=== PATIENT | female | born 1960 | race Caucasian/White ===

== ENCOUNTER → 2018-01-24 06:39 | Outpatient (CLI) | payer OTHER, SELFPAY ==
[2018-01-24 09:09] LABS: PTHIN 93.6 pg/mL (18.4-80.1)
== END ==
PROVIDERS: Family Provider Nurse Practitioner; PCP Nurse Practitioner; Visit Provider Nurse Practitioner
DX: E83.39 Other disorders of phosphorus metabolism (principal)
CPT/HCPCS: 36415; 82306; 83970

== ENCOUNTER → 2018-04-12 10:42 | Outpatient (CLI) | payer OTHER, SELFPAY ==
[2018-04-12 11:44] LABS: Phosphorus 3.4 mg/dL (2.5-4.9)
[2018-04-12 11:54] LABS: Vitamin D,25 Hydroxy 24.8 ng/mL (29.95-100.01)
[2018-04-12 11:55] LABS: PTHIN 101.7 pg/mL (18.4-80.1)
== END ==
PROVIDERS: Family Provider Nurse Practitioner; PCP Nurse Practitioner; Referring Provider Nurse Practitioner; Visit Provider Nurse Practitioner
DX: E34.9 Endocrine disorder, unspecified (principal)
CPT/HCPCS: 36415; 82306; 83970; 84100

== ENCOUNTER → 2018-04-29 09:40 | Outpatient (CLI) | payer OTHER, SELFPAY ==
--- NOTE | 2018-04-29 09:47 | NM_ITS ---
CLINICAL: 57-year-old female with history of elevation of the serum parathyroid hormone level. 99m Tc SESTAMIBI DUAL PHASE PARATHYROID SCINTIGRAPHY COMPARISON: None available FINDINGS: Following the intravenous administration of 26.3 mCi of 99m Tc sestamibi, image acquisitions of the anterior neck at approximately 20 minutes and 2.0 hours post radiopharmaceutical provision reveal: 1. Immediate static blood pool acquisitions demonstrate uniform distribution of the radiopharmaceutical throughout both lobes of a U-shaped thyroid gland. 2. Delayed images depict symmetric near complete washout of the radiotracer from the previously defined right-left thyroid colloid. No focal areas of persistent radiopharmaceutical concentration are identified. NM/Parathyroid Scan IMPRESSION: 1. NEGATIVE 99m Tc SESTAMIBI PARATHYROID IMAGING DUAL PHASE EXAMINATION. 2. There is no definitive typical scintigraphic evidence of parathyroid adenoma on the current evaluation. Electronically Signed: Tobias Nunez DO at 8:07 EDT Tel , Service support ,
== END ==
PROVIDERS: Family Provider Nurse Practitioner; PCP Nurse Practitioner; Referring Provider Nurse Practitioner; Visit Provider Nurse Practitioner
DX: E34.9 Endocrine disorder, unspecified (principal)
CPT/HCPCS: 78070; A9500

== ENCOUNTER → 2018-07-01 08:26 | Outpatient (CLI) | payer OTHER, SELFPAY ==
[2018-07-01 10:41] LABS: PTHIN 85.5 pg/mL (18.4-80.1)
[2018-07-01 10:42] LABS: Vitamin D,25 Hydroxy 34.9 ng/mL (29.95-100.01)
--- OUTSIDE RECORDS SUMMARY | 2018-08-16 20:23 | XMS RPT_ITS | Continuity of Care Document ---
:1960 Author Organization [facility] Address [address] [place] [address] Phone Care Team Providers Name Role Phone Santos CANDIEGiulia E Unavailable Roderick BRICEÑO, Shubham aY Unavailable [facility] Unavailable Narendra BRICEÑO, Ranjit Guerrero Unavailable Dr. Kunal Hansen Unavailable Terri Negron Unavailable Unavailable Ervin Maxwell Unavailable Unavailable Domenica Thomas LPN Unavailable Unavailable Unavailable Unavailable Problems Name Dates Details Abnormal renal ultrasound (R93.429, 793.5) Status: Active BMI 28.0-28.9,adult (Z68.28, V85.24) Status: Active BMI 29.0-29.9,adult (Z68.29, V85.25) Status: Active BMI 30.0-30.9,adult (Z68.30, V85.30) Status: Active Cervical radiculopathy, acute (M54.12, 723.4) Status: Active Deliveries (Parity) Comments: 1. Status: Active Elevated parathyroid hormone (E34.9, 259.9) Comments: and low phosphorus, ? from low D but taking D and still elevated PTH Status: Active Encounter for gynecological examination without abnormal finding (Z01.419, V72.31) Status: Active Encounter for pre-employment examination (Z02.1, V70.5) Status: Active Encounter for routine adult medical exam with abnormal findings (Z00.01, V70.0) Status: Active Encounter for routine adult medical exam with abnormal findings (Z00.01, V70.0) Status: Active Encounter for routine adult medical exam with abnormal findings (Z00.01, V70.0) Status: Active Encounter for screening for malignant neoplasm of colon (Renamed from Special screening for malignant neoplasms, colon) (Z12.11, V76.51) Status: Active Encounter for screening for malignant neoplasm of colon (Renamed from Special screening for malignant neoplasms, colon) (Z12.11, V76.51) Status: Active Encounter for screening mammogram for breast cancer (Renamed from Encounter for screening mammogram for malignant neoplasm of breast) (Z12.31, V76.12) Status: Active Family history of diabetes mellitus (Z83.3, V18.0) Status: Active Hypertension, benign (I10, 401.1) Comments: chronic stable-continue present regimen Status: Active Hypokalemia (Renamed from Decreased potassium in the blood) (E87.6, 276.8) Status: Active Hypophosphatemia (E83.39, 275.3) Comments: 2.4, will check D Status: Active Migraine with aura and without status migrainosus, not intractable (G43.109, 346.00) Comments: chronic stable-continue present regimen Status: Active Muscle spasms of neck (M62.838, 728.85) Status: Active Neck pain on left side (M54.2, 723.1) Status: Active Nonsmoker (Z78.9, V49.89) Status: Active Other abnormal finding of urine (R82.99, 791.9) Status: Active Pregnancies () Comments: 1. Status: Active screening Status: Active screening Status: Active Screening for osteoporosis (Renamed from Encounter for screening for osteoporosis) (Z13.820, V82.81) Status: Active Secondary hyperparathyroidism (N25.81, 588.81) Comments: From low vit D, negative Sesitmeibi result Status: Active Tachycardia (R00.0, 785.0) Status: Active Vitamin D deficiency (E55.9, 268.9) Comments: will take D from here Status: Active Medications Name Dates Details HydroCHLOROthiazide 12.5 MG Oral Capsule 1 Capsule q0d for 0 days Quantity: 45 {Capsule} Refills: 0 Ordered:21-Jan-2018 Santos SCHREIBER, Giulia Pires CNP, Giulia Courtney Start : 21-Jan-2018 Active Losartan Potassium 25 MG Oral Tablet 1 Tablet daily for 0 days Quantity: 90 {Tablet} Refills: 1 Ordered:21-Jan-2018 Santos SCHREIBER, Giulia Pires CNP, Giulia Courtney Start : 21-Jan-2018 Active Vitamin D 2000 UNIT Oral Tablet 1 (one) Tablet Tablet daily as directed for 0 days Quantity: 30 {Tablet} Refills: 0 Ordered:15-Apr-2018 Terri Negron Start : 03-Feb-2018 Active Cyclobenzaprine HCl 5 MG Oral Tablet 1 (one) Tablet Tablet PO TID for 0 days Quantity: 60 {Tablet} Refills: 0 Ordered:21-Jan-2018 Ervin Maxwell Start : 08-Dec-2016 End : 21-Jan-2018 Inactive LOSARTAN POTASSIUM-HCTZ, 50-12.5MG (Oral Tablet) 1 (one) Tablet daily for 30 days Quantity: 30 {Tablet} Refills: 1 Ordered:30-Sep-2012 Mayuri Gamino LPN Start : 23-Jun-2012 End : 30-Sep-[address] 500 MG Oral Tablet Delayed Release 1 (one) Tablet DR Tablet DR BID for 0 days Quantity: 30 {Tablet} Refills: 0 Ordered:21-Jan-2018 Ervin Maxwell Start : 08-Dec-2016 End : 21-Jan-2018 Inactive Comments:Take with food Caltrate 600+D 600-800 MG-UNIT Oral Tablet 1 Tablet bid for 0 days Quantity: 60 {Tablet} Refills: 0 Ordered:03-Mar-2016 Domenica Thomas LPN Start : 29-Mar-2013 End : 03-Mar-2016 Discontinued TOPAMAX, 25MG (Oral Tablet) 1 (one) Tablet qhs for 1 week then take bid for 0 days Quantity: 60 {Tablet} Refills: 3 Ordered:02-Feb-2014 Elvira Valencia Start : 30-Oct-2013 End : 02-Feb-2014 Discontinued Vitamin D3 57015 UNIT Oral Capsule 2 (two) Capsule Capsule qd for 0 days Quantity: 60 {Capsule} Refills: 3 Ordered:03-Mar-2016 Domenica Thomas LPN Start : 15-Dec-2013 End : 03-Mar-2016 Discontinued Allergies and Adverse Reactions Name Dates Details No Known Drug Allergies (Allergy) Onset: 13-Apr-2012 Status: Active Past Medical History Name Dates Details Abdominal complaints (789.9) Comments: resolved Status: Inactive as of 21-Jan-2018 BMI 30.0-30.9,adult (Z68.30, V85.30) Status: Inactive as of 01-Mar-2017 BMI 30.0-30.9,adult (Z68.30, V85.30) Status: Inactive as of 21-Jan-2018 Elevated bilirubin (782.4) Status: Resolved as of 02-Feb-2014 Hypoalbuminemia (E88.09, 273.8) Status: Resolved as of 02-Feb-2014 Hypocalcemia (E83.51, 275.41) Status: Resolved as of 02-Feb-2014 MIGRAINE NEC W/ MIGRAINE W/O STAT MIGRAINOSUS (346.81) Comments: has on and off Status: Inactive as of 21-Jan-2018 Parathyroid abnormality (E21.5, 252.9) Status: Resolved as of 02-Feb-2014 screening Status: Inactive as of 02-Feb-2014 screening Status: Inactive as of 02-Feb-2014 UTI symptoms (R39.9, 788.99) Comments: abnormal on employee physical here normal Status: Inactive as of 21-Jan-2018 Procedures Procedure Dates Details Delivery Completed Date Value Details 29-Apr-2018 Parathyroid Scan Result: Comments: See Note; NOTES: [facility] Imaging Services [address] [place] [address] Parathyroid Scan MR#: [id number] Acct: [id number] Name: CHALO MAHMOODJose Jimenez Rep #: [id number] OB: 1960 F 57 From: Tobias Nunez DO PCP: Giulia Graham NP Status: REG CLI Study: Parathyroid Scan Date of Exam: 04/29/18 Exam# [id number] Ordering Dr: Giulia Graham TIME CLERK-C CLINICAL: 57-year-old female with history of elevation of the serum parathyroid hormone level. 99m Tc SESTAMIBI DUAL PHASE PARATHYROID SCINTIGRAPHY COMPARISON: None available FINDINGS: Following the intravenous administration o f 26.3 mCi of 99m Tc sestamibi, image acquisitions of the anterior neck at approximately 20 minutes and 2.0 hours post radiopharmaceutical provision reveal: 1. Immediate static blood pool acquisitions demonstrate uniform distribution of the radiopharmaceutical throughout both lobes of a U-shaped thyroid gland. 2. Delayed images depict symmetric near complete washout of the radiotracer from the previo usly defined right-left thyroid colloid. No focal areas of persistent radiopharmaceutical concentration are identified. NM/Parathyroid Scan IMPRESSION: 1. NEGATIVE 99m Tc SESTAMIBI PARATHYROID IMAGING DUAL PHASE EXAMINATION. 2. There is no definitive typical scintigraphic evidence of parathyroid adenoma on the current evaluation. Electronically Signed: Tobias Nunez DO at 8:07 EDT Tel , Service support , CC: Giulia Graham NP Coin Purse Assembler: Signed 28-Jun-2017 Operative Report Result: Comments: See Note; NOTES: [facility] Medical Records Department [address] [place] [address] Operative Report 06/28/17 0822 MR#: [id number] Acct: [id number] Name: CHALO MAHMOOD Rep #: [id number] : 1960 56 From: Shubham Paredes MD PCP: Giulia Graham NP Status: REG CLI Y Location: EN Problem List (1) Screen for colon cancer Status: Acute Report of Operation Date of Procedure: 06/28/17 Pre-Operative Diagnosis: Screening colonoscopy Post-Operative Diagnosis: Same Surgery/Procedure Performed:: Colonoscopy plant accountant: None Type of Anesthesia:: MAC Anesthesiologist: Joselito Alvarez Special Medications: 1 amp of glucagon Specimen's removed: None Estimated Blood Loss (mL): None Description of Procedure: Patient brought into the endoscopy suite placed in the left later al decubitus position. She was given graded anesthesia. Colonoscope was inserted into the rectum and directed through the sigmoid colon, descending colon, transverse colon, ascending colon, to the cecum . Operative findings: 1. Cecum: Normal appearance no mass lesions normal ileocecal valve. 2. Ascending colon: Normal appearance no mass lesions. 3. Transverse colon: Normal appearance no mass lesions . 4. Descending colon: Normal appearance no mass lesions. 5. Sigmoid colon: Normal appearance no mass lesions scattered diverticuli moderate. 6. Rectum: Normal appearance no mass lesions retroflexion did show small internal hemorrhoid. Scope was withdrawn digital rectal exam showed no masses in the anus. - Admit VTE Documentation VTE Present on Admission: No VTE Mechan Device Prophylaxis: None VTE Pharm Prophylaxis ordered?: No Reason prophylaxis not ordered:: Treatment Not Indicated Code Visit 40xxx-49xxx: 40695 Diagnostic colonoscopy 06/28/17825 <Electronically signed by Shubham carranza MD> Date Shubham Paredes MD CC: Giulia Graham NP; santos greene; Shubham Paredes MD Signed 28-Jun-2017 History and Physical Exam Result: Comments: See Note; NOTES: [facility] Medical Records Department [address] [place] [address] History and Physical 06/28/17818 MR#: [id number] Acct: [id number] Name: Ashley MAHMOOD Rep #: [id number] : 1960 56 From: Shubham Paredes MD PCP: Giulia Graham NP Status: REG CLI Y Location: EN Problem List (1) Screen for colon cancer Status: Acute History of Present Illne ss Date of Admission: 06/28/17 The patient is a 56 year old F who presents for a screening colonoscopy. 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: - - Patient has had a section Smoking Status: Never smoker - *Family History Maternal History Items: Heart Disease, Hypertension Review of Systems Constitutional: Denies: Chills, Feve r, Weight Change Eyes: Denies: Blurred vision, Pain, Redness, Vision Change HEENT: Denies: Dysphasia, Ear Pain, Eye Pain, Head Aches, Hearing Changes, Sore Throat Cardiovascular: Denies: Chest Pain, Ira st Pressure, Chest Tightness, Palpitations Respiratory: Denies: Cough, Hemoptysis, Shortness of breath at rest, Shortness of breath upon exertion, Wheezing Gastrointestinal: Denies: Abdominal Pain, Cons tipation, Diarrhea, Hematemesis, Nausea, Melena, Vomiting Genitourinary: Denies: Dysuria, Frequency, Hematuria, Urgency Musculoskeletal: Denies: Joint Pain Skin: Denies: Lesions, Rash, Wounds Neurologic al: Denies: Change in Speech, Confusion, Numbness, Tingling, Seizures Psychiatric: Denies: Anxiety, Depression Endocrine: Denies: Heat/ Cold Intolerance, Polydipsia, Polyuria Hematologic/ Lymphatic: Den ies: Adenopathy, Easy Bruising VTE Information - Inpt Only VTE Present on Admission: No VTE Mechan Device Prophylaxis: None VTE Pharm Prophylaxis ordered?: No Reason prophylaxis not ordered:: Treatment Not Indicated Patient Problems: Active and Suspected Problems Screen for colon cancer (Acute) - Physical Exam Lungs: Clear to auscultation Cardiovascular: Regular rate, Regular Rhythm, No murmurs A bdomen: Bowel Sounds Present, Soft, Non Tender, Non-Distended Vital Signs Temp Pulse Resp BP Pulse Ox 98.2 F 84 20 H 109/85 H 95 06/28/17 07:13 06/28/17 07:13 06/28/17 07:13 06/28/17 07:13 06/28/17 07: 13 Oxygen Delivery Method Room Air Weight: 177 lb 7.554 oz Body Mass Index (BMI) 29.5 Assessment/Plan Active and Suspected Problems Screen for colon cancer (Acute) Assessment is screening colo noscopy Plan is to perform a colonoscopy. 06/28/17 0822 <Electronically signed by Shubham Paredes MD> Date Shubham Reed r Signature: Date (if applicable) CC: Giulia Graham TIME CLERK; Shubham Paredes MD Signed 08-Dec-2016 Cerv Spine 4 or 5 Views Result: Comments: See Note; NOTES: [facility] Imaging Services [address] [place] [address] [place] [address] Verdana 4d Cerv Spine 4 or 5 Views MR#: [id number] Acct: [id number] Name: JENARO MAHMOOD Rep #: [id number] : 1960 F 56 From: Sarah Flor MD PCP: Giulia Graham Status: REG CLI Study: Cerv Spine 4 or 5 Views Date of Exam: 12/08/16 Exam# [id number] Ordering Dr: Vianey De La Garza Y: X-RAY - CERVICAL SPINE REASON FOR EXAM: Female, 56 years old. Left-sided neck pain denies trauma TECHNIQUE: 6 view(s) of the cervical spine were obtained. COMPARISON: None FINDINGS: There are degenerative changes of the anterior atlantoaxial articulation. There is robust degenerative change at the dens space. Normal odontoid process. Normal cervical lordosis . There is disc space narrowing and spondylosis at the level of C5-C6. Normal visualized intervertebral neuroforamina. The soft tissue structures are unremarkable. RAD/Cerv Spine 4 or 5 Views IMPRESSION: Degenerative change cervical spine as detailed above. Electronically Signed: Sarah Flor MD at 22:53 EDT Tel , Serv ice support , CC: Vianey De La Garza; Giulia Graham Coin Purse Assembler: Signed 16-Nov-2013 Brain/Head W/WO Contrast Result: Comments: See Note; NOTES: [facility] Imaging Services [address] [place] [address] CAT Scan Report MR#: [id number] Acct: [id number] Name: JENARO MAHMOOD Rep #: [id number] : 1960 F 53 From: Ashley Stover MD PCP: Jaimee Jarrett DO Status: REG CLI Study: Brain/Head W/WO Contrast Date of Exam: 11/16/13 Exam# [id number] Ordering Dr: Jaimee Jarrett DO STUDY: CT BRAIN WITH AND WITHOUT CONTRAST REASON FOR EXAM: Female, 53 years old. Frontal headaches for years. RADIATION DOSAGE (If Supplied By Facility): CTDIvol = ( 68.82 ) mGy, DLP = ( 2018.02 ) mGycm TECHNIQUE: Transaxial CT imaging of the brain was performed pre and post contrast administration. The examination was performed with intravenous administration of 100 ml of Isovue 300 contrast materi al. COMPARISON: None. FINDINGS: The lateral and third ventricles are normal in size. There is mild widening of the frontal cortical sulci. Normal white fabio er tracts of the cerebral hemispheres. Normal basal ganglia and thalami. Normal appearing brainstem. Mild volume loss is seen in the cerebellum. There is no intracranial hemorrhage or acute infarct ion. No abnormal enhancement or mass lesion is identified. No lesion identified in the calvarium. Normal visualized paranasal sinuses. IMPRESSION: No acute process identified. Mild involutional changes. Electronically Signed: Ashley Pink MD at 13:39 EDT , Service support [phone], CC: Jaimee Jarrett DO Coin Purse Assembler: Signed 13-Oct-2013 Bilat Scrn Digital & CAD Result: Comments: See Note; NOTES: [facility] Imaging Services [address] [place] [address] Breast Imaging Report MR#: [id number] Acct: [id number] Name: KATIEJENARO J Rep #: [id number] : 1960 F 53 From: Leo Guardado MD PCP: Jaimee Jarrett DO Status: REG CLI Exam# [id number] Ordering Dr: Jaimee Jarrett DO MAMMOGRAPHY - BILATERAL SCREENING REASON FOR EXAM: Fe male, 53 years old. Routine annual screening examination. PERTINENT HISTORY: Non-contributory. TECHNIQUE: Digital examination. Mediolateral oblique (MLO) and craniocaudad (CC) views of both breast s were obtained. CAD: CAD was performed on this study. COMPARISON: Comparison is made with prior outside examination dated January 29, 2005. FINDINGS: The breast composition is composed of scattered fibroglandular tissues ranging from 25% to 50% of the breast. There are no dominant masses or suspicious calcifications. No other significant abnormalities are identified. There has been no significant change since the prior study. IMPRESSION: Stable bilateral screening mammogram. Yearly follow-up recommended. (A) ___ ASSESSMENT CATEGORY: BIRADS Category 2: Benign finding(s). A letter regarding these results will be sent to the patient by the facility within 30 days. Approximate ly 10% of breast cancers are not detected by mammography. A normal mammogram should not delay biopsy of a clinically suspicious abnormality. Electronically Signed: Leo Guardado M.D. at 7:50 EDT , Service support [phone], CC: Jaimee Jarrett DO Coin Purse Assembler: Signed Social History Name Dates Details No Caffeine Use Status: Active No Drug Use Status: Active Non Drinker/No Alcohol Use Status: Active Non Smoker/No Tobacco Use Status: Active Vital Signs Date Test Result Details [id number] Temperature 98.5 f Comments: Method: Temporal Pulse 94 /min Comments: Pattern: Regular Respiration Rate 16 /min Comments: Pattern: Unlabored O2 SAT 91 % Comments: Room air BP Systolic 120 mm[Hg] Comments: Patient Position: Sitting; Cuff Location: Left Arm; Cuff Size: Standard BP Diastolic 84 mm[Hg] Comments: Patient Position: Sitting; Cuff Location: Left Arm; Cuff Size: Standard Weight 180.375 lb Height 65 in Body Mass Index Calculated 30.02 kg/m2 Body Surface Area Calculated 1.89 m2 :07 Temperature 97.2 f Pulse 82 /min Comments: Pattern: Regular Respiration Rate 16 /min Comments: Pattern: Unlabored O2 SAT 96 % Comments: Room air BP Systolic 110 mm[Hg] Comments: Patient Position: Sitting; Cuff Location: Left Arm; Cuff Size: Standard BP Diastolic 72 mm[Hg] Comments: Patient Position: Sitting; Cuff Location: Left Arm; Cuff Size: Standard Weight 175.25 lb Height 65 in Body Mass Index Calculated 29.16 kg/m2 Body Surface Area Calculated 1.87 m2 [id number] Temperature 97 f Pulse 94 /min Comments: Pattern: Regular Respiration Rate 16 /min Comments: Pattern: Unlabored O2 SAT 97 % Comments: Room air BP Systolic 118 mm[Hg] Comments: Patient Position: Sitting; Cuff Location: Left Arm; Cuff Size: Standard BP Diastolic 76 mm[Hg] Comments: Patient Position: Sitting; Cuff Location: Left Arm; Cuff Size: Standard Weight 173.0375 lb Height 65 in Body Mass Index Calculated 28.79 kg/m2 Body Surface Area Calculated 1.86 m2 :16 Temperature 97.4 f Pulse 97 /min Comments: Pattern: Regular Respiration Rate 16 /min Comments: Pattern: Unlabored O2 SAT 96 % Comments: Room air BP Systolic 118 mm[Hg] Comments: Patient Position: Sitting; Cuff Location: Left Arm; Cuff Size: Standard BP Diastolic 76 mm[Hg] Comments: Patient Position: Sitting; Cuff Location: Left Arm; Cuff Size: Standard Weight 180.375 lb Height 65 in Body Mass Index Calculated 30.02 kg/m2 Body Surface Area Calculated 1.89 m2 :46 Temperature 97.4 f Pulse 89 /min Comments: Pattern: Regular Respiration Rate 16 /min Comments: Pattern: Unlabored O2 SAT 97 % Comments: Room air BP Systolic 108 mm[Hg] Comments: Patient Position: Sitting; Cuff Location: Left Arm; Cuff Size: Standard BP Diastolic 62 mm[Hg] Comments: Patient Position: Sitting; Cuff Location: Left Arm; Cuff Size: Standard Weight 182 lb Height 65 in Body Mass Index Calculated 30.29 kg/m2 Body Surface Area Calculated 1.9 m2 :11 Temperature 97.9 f Pulse 93 /min Comments: Pattern: Regular Respiration Rate 17 /min Comments: Pattern: Unlabored O2 SAT 99 % Comments: Room air BP Systolic 116 mm[Hg] Comments: Patient Position: Sitting; Cuff Location: Left Arm; Cuff Size: Standard BP Diastolic 78 mm[Hg] Comments: Patient Position: Sitting; Cuff Location: Left Arm; Cuff Size: Standard Weight 187 lb Height 65 in Body Mass Index Calculated 31.12 kg/m2 Body Surface Area Calculated 1.92 m2 :59 Temperature 98.6 f Comments: Method: Temporal Pulse 84 /min Comments: Pattern: Regular Respiration Rate 16 /min Comments: Pattern: Unlabored BP Systolic 116 mm[Hg] Comments: Patient Position: Sitting; Cuff Location: Left Arm; Cuff Size: Standard BP Diastolic 80 mm[Hg] Comments: Patient Position: Sitting; Cuff Location: Left Arm; Cuff Size: Standard Weight 183 lb Height 65 in Body Mass Index Calculated 30.45 kg/m2 Body Surface Area Calculated 1.9 m2 :25 Temperature 97.5 f Pulse 74 /min Comments: Pattern: Regular Respiration Rate 16 /min Comments: Pattern: Unlabored BP Systolic 100 mm[Hg] Comments: Patient Position: Sitting; Cuff Location: Left Arm; Cuff Size: Standard BP Diastolic 78 mm[Hg] Comments: Patient Position: Sitting; Cuff Location: Left Arm; Cuff Size: Standard Weight 178 lb Height 65 in Body Mass Index Calculated 29.62 kg/m2 Body Surface Area Calculated 1.88 m2 :50 Temperature 96.6 f Pulse 76 /min Comments: Pattern: Regular Respiration Rate 16 /min Comments: Pattern: Unlabored BP Systolic 110 mm[Hg] Comments: Patient Position: Sitting; Cuff Location: Left Arm; Cuff Size: Large BP Diastolic 70 mm[Hg] Comments: Patient Position: Sitting; Cuff Location: Left Arm; Cuff Size: Large Weight 182 lb Height 65 in Body Mass Index Calculated 30.29 kg/m2 Body Surface Area Calculated 1.9 m2 :27 Temperature 98.1 f Pulse 96 /min Comments: Pattern: Regular Respiration Rate 16 /min Comments: Pattern: Unlabored BP Systolic 116 mm[Hg] Comments: Patient Position: Sitting; Cuff Location: Left Arm; Cuff Size: Large BP Diastolic 82 mm[Hg] Comments: Patient Position: Sitting; Cuff Location: Left Arm; Cuff Size: Large Weight 182 lb Height 65 in Body Mass Index Calculated 30.29 kg/m2 Body Surface Area Calculated 1.9 m2 :24 Temperature 96.9 f Pulse 102 /min Comments: Pattern: Regular Respiration Rate 16 /min Comments: Pattern: Unlabored BP Systolic 110 mm[Hg] Comments: Patient Position: Sitting; Cuff Location: Left Arm; Cuff Size: Large BP Diastolic 78 mm[Hg] Comments: Patient Position: Sitting; Cuff Location: Left Arm; Cuff Size: Large Weight 181 lb Height 65 in Body Mass Index Calculated 30.12 kg/m2 Body Surface Area Calculated 1.9 m2 :55 Temperature 98 f Comments: Method: Oral Pulse 72 /min Comments: Pattern: Regular Respiration Rate 16 /min O2 SAT 98 % Comments: Room air BP Systolic 126 mm[Hg] Comments: Patient Position: Sitting; Cuff Location: Left Arm; Cuff Size: Standard BP Diastolic 74 mm[Hg] Comments: Patient Position: Sitting; Cuff Location: Left Arm; Cuff Size: Standard Weight 176.5625 lb Height 65 in Body Mass Index Calculated 29.38 kg/m2 Body Surface Area Calculated 1.88 m2 :16 Temperature 98.1 f Comments: Method: Oral Pulse 92 /min Comments: Pattern: Regular Respiration Rate 16 /min O2 SAT 98 % Comments: Room air BP Systolic 112 mm[Hg] Comments: Patient Position: Sitting; Cuff Location: Left Arm; Cuff Size: Standard BP Diastolic 70 mm[Hg] Comments: Patient Position: Sitting; Cuff Location: Left Arm; Cuff Size: Standard Weight 176.5625 lb Height 65 in Body Mass Index Calculated 29.38 kg/m2 Body Surface Area Calculated 1.88 m2 :50 Temperature 98 f Comments: Method: Oral Pulse 90 /min Comments: Pattern: Regular Respiration Rate 16 /min O2 SAT 96 % Comments: Room air BP Systolic 118 mm[Hg] Comments: Patient Position: Sitting; Cuff Location: Left Arm; Cuff Size: Standard BP Diastolic 74 mm[Hg] Comments: Patient Position: Sitting; Cuff Location: Left Arm; Cuff Size: Standard Weight 187.1875 lb Height 65 in Body Mass Index Calculated 31.15 kg/m2 Body Surface Area Calculated 1.92 m2 :51 Temperature 98.3 f Comments: Method: Oral Pulse 82 /min Comments: Pattern: Regular Respiration Rate 16 /min O2 SAT 98 % Comments: Room air BP Systolic 120 mm[Hg] Comments: Patient Position: Sitting; Cuff Location: Left Arm; Cuff Size: Standard BP Diastolic 80 mm[Hg] Comments: Patient Position: Sitting; Cuff Location: Left Arm; Cuff Size: Standard Weight 182.125 lb Height 65 in Body Mass Index Calculated 30.31 kg/m2 Body Surface Area Calculated 1.9 m2 :38 Temperature 98.2 f Comments: Method: Oral Pulse 80 /min Comments: Pattern: Regular Respiration Rate 18 /min BP Systolic 108 mm[Hg] Comments: Patient Position: Sitting; Cuff Location: Left Arm; Cuff Size: Standard BP Diastolic 70 mm[Hg] Comments: Patient Position: Sitting; Cuff Location: Left Arm; Cuff Size: Standard Weight 180.1875 lb Height 65 in Body Mass Index Calculated 29.98 kg/m2 Body Surface Area Calculated 1.89 m2 :38 Temperature 98.2 f Comments: Method: Oral Pulse 76 /min Comments: Pattern: Regular Respiration Rate 16 /min BP Systolic 124 mm[Hg] Comments: Patient Position: Sitting; Cuff Location: Left Arm; Cuff Size: Standard BP Diastolic 80 mm[Hg] Comments: Patient Position: Sitting; Cuff Location: Left Arm; Cuff Size: Standard Weight 180.1875 lb Height 65 in Body Mass Index Calculated 29.98 kg/m2 Body Surface Area Calculated 1.89 m2 :10 Temperature 99 f Comments: Method: Oral Pulse 82 /min Comments: Pattern: Regular Respiration Rate 16 /min Comments: Pattern: Unlabored O2 SAT 98 % Comments: Room air BP Systolic 102 mm[Hg] Comments: Patient Position: Sitting; Cuff Location: Left Arm; Cuff Size: Standard BP Diastolic 68 mm[Hg] Comments: Patient Position: Sitting; Cuff Location: Left Arm; Cuff Size: Standard Weight 180.1875 lb Height 65 in Body Mass Index Calculated 29.98 kg/m2 Body Surface Area Calculated 1.89 m2 :42 Temperature 98.8 f Comments: Method: Oral Pulse 78 /min Comments: Pattern: Regular Respiration Rate 16 /min O2 SAT 98 % Comments: Room air BP Systolic 128 mm[Hg] Comments: Patient Position: Sitting; Cuff Location: Left Arm; Cuff Size: Standard BP Diastolic 82 mm[Hg] Comments: Patient Position: Sitting; Cuff Location: Left Arm; Cuff Size: Standard Weight 180.1875 lb Height 65 in Body Mass Index Calculated 29.98 kg/m2 Body Surface Area Calculated 1.89 m2 [id number]-[id number]:50 Temperature 98.2 f Comments: Method: Oral Pulse 94 /min Comments: Pattern: Regular Respiration Rate 17 /min Comments: Pattern: Unlabored O2 SAT 97 % Comments: Room air BP Systolic 152 mm[Hg] Comments: Patient Position: Sitting; Cuff Location: Left Arm; Cuff Size: Standard BP Diastolic 90 mm[Hg] Comments: Patient Position: Sitting; Cuff Location: Left Arm; Cuff Size: Standard Weight 183.5 lb Height 65 in Body Mass Index Calculated 30.54 kg/m2 Body Surface Area Calculated 1.91 m2 Results Date Description Value Details [id number] Phosphorus Comments: [facility] [address] [place], [id number] PHOS 3.4 mg/dL (Normal) Range: 2.5-4.9 86-Ubl-548151:56 PTHIN 101.7 pg/mL (Abnormal) Comments: [facility] [address] [place], [id number] Range: 18.4-80.1 [id number]-Dav-369905:56 Vitamin D,25 Hydroxy Comments: [facility] [address] [place], [id number] Vitamin D 25-OH 24.8 ng/mL (Abnormal) Range: 29.95-100.01 Comments: Vitamin D 25(OH) Status Range Deficiency <20 ng/mL (50nmol/L) Insuffciency 20 - 30 ng/mL (50 - 75 nmol/L) Sufficiency 30 - 100 ng/mL (75 - 250 nmol/L) Toxicity >100 ng/mL (>250 nmol/L) [id number]-Dcl-[id number]:20 HPV, Reflex Comments: Source.............Cervix;EndocervixNo. of containers..01 ThinPrep VialPATIENT NOT FASTINGPERFORMED BY: [facility] [address] [id number] Information: [id number] ([id number]) Note: PAPSMR (Normal) Comments: The Pap smear is a screening test designed to aid in the detection ofpremalignant and malignant conditions of the uterine cervix. It is not adiagnostic procedure and should not be used as the sole mean s of detectingcervical cancer. Both false-positive and false-negative reports do occur. .The HPV DNA reflex criteria were not met with this specimen resulttherefore, no HPV testing was performed. . See Note . (Normal) DIAGNOSIS: SPRCS (Normal) Comments: NEGATIVE FOR INTRAEPITHELIAL LESION AND MALIGNANCY.Satisfactory for evaluation. Endocervical and/or squamous metaplasticcells (endocervical component) are present.Z01.419Sam Fidel, Cytot echnologist (ASCP) :43 PTHIN 93.6 pg/mL (Abnormal) Comments: [facility] [address] [place], [place], [address] Range: 18.4-80.1 :43 Vitamin D,25 Hydroxy Comments: [facility] [address] [place], [place], [address] Vitamin D 25-OH 30.0 ng/mL (Normal) Range: 29.95-100.01 Comments: Vitamin D 25(OH) Status Range Deficiency <20 ng/mL (50nmol/L) Insuffciency 20 - 30 ng/mL (50 - 75 nmol/L) Sufficiency 30 - 100 ng/mL (75 - 250 nmol/L) Toxicity >100 ng/mL (>250 nmol/L) :34 CBC, Employee Comments: [facility] [address] [place], [place], [address] Absolute Lymph 1.47 {X10_3/ul} (Normal) Range: 0.83-4.51 Absolute Neut 3.5 {X10_3/uL} (Normal) Range: 2.0-7.7 BASO% 0.4 % (Normal) Range: 0-1 EO% 2.8 % (Normal) Range: 0-5 MONO% 4.1 % (Normal) Range: 0-10 LY% 27.4 % (Normal) Range: 19-41 NEUT% 65.3 % (Normal) Range: 47-70 MPV 10.4 fL (Normal) Range: 6.2-12.0 PLT 309 K/mm3 (Normal) Range: 150-450 RDW SD 41.4 fL (Normal) Range: 35.1-43.9 RDW CV 12.6 % (Normal) Range: 11.6-14.6 MCHC 33.5 {g/gl} (Normal) Range: 32-36 MCH 30.3 pg (Normal) Range: 27.0-32.0 MCV 90.4 fL (Normal) Range: 81-99 HCT 38.8 % (Normal) Range: 37-47 HGB 13.0 g/dL (Normal) Range: 12.0-15.0 RBC 4.29 {M/mm3} (Normal) Range: 4.2-5.4 WBC 5.4 K/mm3 (Normal) Range: 4.4-11.0 26-Mfi-75619:34 Employee Profile Comments: [facility] [address] [place], [address] LDH 184 U/L (Normal) Range: 84-246 VLDL 17 mg/dL (Normal) Range: 5-40 LDL 92 mg/dL (Normal) Range: 0-130 CHOL:HDL 2.80 (Normal) HDL 60 mg/dL (Normal) Comments: The drugs N-Acetylcysteine and Metamizole may falselydepress this assay. Reference Range HDL <40 mg/dL Low HDL Cholesterol HDL >or= 60 mg/dL High HDL Cholesterol GAP 6 (Normal) Range: 5-15 CO2 25.0 mmol/L (Normal) Range: 21.0-32.0 CL 111 mmol/L (Abnormal) Range: 98-107 K 3.8 mmol/L (Normal) Range: 3.5-5.1 NA 142 mmol/L (Normal) Range: 136-145 TRIG 85 mg/dL (Normal) Comments: The drugs N-Acetylcysteine and Metamizole may falselydepress this assay.Serum Triglycerides Reference Interval Normal <150 mg/dL Borderline high 150 - 199 mg/dL High 200 - 499 mg/dL Very High > or = 500 mg/dL CHOL 169 mg/dL (Normal) Comments: <200 mg/dL Desirable 200-240 mg/dL Borderline >240 mg/dL High Risk D BILI 0.18 mg/dL (Normal) Range: 0.00-0.30 T BILI 1.10 mg/dL (Abnormal) Range: 0.20-1.00 ALT 31 U/L (Normal) Range: 13-56 ALK P 64 U/L (Normal) Range: 45-117 AST 22 U/L (Normal) Range: 15-37 PHOS 2.4 mg/dL (Abnormal) Range: 2.5-4.9 CA 8.9 mg/dL (Normal) Range: 8.5-10.1 A/G 1.0 {RATIO} (Normal) Range: 0.9-2.4 GLOB 3.6 g/dL (Normal) Range: 2.2-4.2 ALB 3.5 g/dL (Normal) Range: 3.2-5.0 T PROT 7.1 g/dL (Normal) Range: 6.4-8.2 URIC 4.5 mg/dL (Normal) Range: 2.6-6.0 Comments: The drugs N-Acetylcysteine and Metamizole may falselydepress this assay. BUN/CRE 24.7 {RATIO} (Abnormal) Range: 10-20 EST GFR - AA 113 mL/min (Normal) Comments: GFR Calc EST GFR 94 mL/min (Normal) Comments: Non- GFR Calc CREAT,SERUM 0.69 mg/dL (Normal) Range: 0.55-1.02 Comments: The validity of the calculated GFR AND GFRAA in patients over70 years has not been determined. Clinical correlation isessential. BUN 17 mg/dL (Normal) Range: 7-18 GLU 95 mg/dL (Normal) Range: 74-106 Comments: Please note revised GLUCOSE reference range emrxknuuh53/02/2018. 78-Oqt-43841:34 Nicotine Urine Drug Screen Comments: [facility] [address] [place], [place], [id number] COT DRG SCREEN Negative (Normal) Comments: Cotinine is the first-stage metabolite of Nicotine. TO BE CONFIRMED (Normal) Comments: CONFIRMATORY TESTING FOR ALL POSITIVE URINE DRUG SCREENRESULTS WILL ONLY BE SENT OUT UPON PHYSICIAN ORDER.The results of Urine Drug Screen methods provide onlypreliminary analytical test results. A more specificalternate chemical method must be used in order to obtain aconfirmed analytical result. Gas chromatography/massspectrometery (GC/MS) is the preferred confirmatory method.Clinical consideration and professional judgement should beapplied to any drug of abuse test result, particularly whenpreliminary positive results are used. :34 Urinalysis, Employee Comments: [facility] [address] [place], [address] LEUK ESTERASE Negative /ul (Normal) OCCULT BLOOD-UR 25 /ul (Abnormal) NITRITE UR Negative (Normal) UROBILI Normal mg/dL (Normal) PROT DIPSTX Negative mg/dL (Normal) pH UR 6.0 (Normal) Range: 5.0 - 8.0 SP.GR. DIPSTX 1.015 (Normal) Range: 1.002-1.030 KETONE UR Negative mg/dL (Normal) BILIRUBIN URINE Negative mg/dL (Normal) GLUCOSE, UR Normal mg/dL (Normal) CLARITY Clear (Normal) COLOR Yellow (Normal) 52-Sta-241837:26 URINE FREYA CULTURE-CHRISTEN COL Comments: PATIENT NOT FASTINGPERFORMED BY: [facility] [id number] Information: SRC:UC COUNT ([id number]) Result 1 MUG (Normal) Comments: Mixed urogenital flora10,000-25,000 colony forming units per mL Urine Final report (Normal) Culture,Comprehensive [id number]-Vur-[id number]:52 Urinalysis, Office ([id number]) UA - LEUKOCYTE ESTERASE Negative (Normal) UA - NITRITE Negative (Normal) URINE UROBILINGN CHRISTEN TIMED Normal mg/dL (Normal) UA - PROTEIN Negative mg/dL (Normal) UA - PH 6 (Abnormal) UA - BLOOD Hemolyzed Trace (Normal) UA - SPECIFIC GRAVITY 1.005 (Normal) UA - KETONES Negative mg/dL (Normal) UA - BILIRUBIN Negative (Normal) UA - GLUCOSE Negative (Normal) 55-Ppq-92634:18 CBC, Employee Comments: [facility] [address] [facility] [address] [place], [place], [id number] Absolute Lymph 1.73 {X10_3/ul} (Normal) Range: 0.83-4.51 Absolute Neut 4.3 {X10_3/uL} (Normal) Range: 2.0-7.7 BASO% 0.6 % (Normal) Range: 0-1 EO% 2.2 % (Normal) Range: 0-5 MONO% 7.8 % (Normal) Range: 0-10 LY% 25.5 % (Normal) Range: 19-41 NEUT% 63.8 % (Normal) Range: 47-70 MPV 10.1 fL (Normal) Range: 6.2-12.0 PLT 334 K/mm3 (Normal) Range: 150-450 RDW SD 41.4 fL (Normal) Range: 35.1-43.9 RDW CV 12.6 % (Normal) Range: 11.6-14.6 MCHC 33.6 {g/gl} (Normal) Range: 32-36 MCH 30.5 pg (Normal) Range: 27.0-32.0 MCV 90.7 fL (Normal) Range: 81-99 HCT 39.0 % (Normal) Range: 37-47 HGB 13.1 g/dL (Normal) Range: 12.0-15.0 RBC 4.30 {M/mm3} (Normal) Range: 4.2-5.4 WBC 6.8 K/mm3 (Normal) Range: 4.4-11.0 09-Yyh-60062:18 Employee Profile Comments: [facility] [address] [place], [place], [address] LDH 170 U/L (Normal) Range: 84-246 VLDL 23 mg/dL (Normal) Range: 5-40 LDL 100 mg/dL (Normal) Range: 0-130 CHOL:HDL 2.80 (Normal) HDL 70 mg/dL (Normal) Comments: The drugs N-Acetylcysteine and Metamizole may falsely deressthis assay. Reference Range HDL <40 mg/dL Low HDL Cholesterol HDL >or= 60 mg/dL High HDL Cholesterol GAP 6 (Normal) Range: 5-15 CO2 25.0 mmol/L (Normal) Range: 21.0-32.0 CL 111 mmol/L (Abnormal) Range: 98-107 K 3.8 mmol/L (Normal) Range: 3.5-5.1 NA 142 mmol/L (Normal) Range: 136-145 TRIG 117 mg/dL (Normal) Comments: The drugs N-Acetylcysteine and Metamizole may falsely deressthis assay.Serum Triglycerides Reference Interval Normal <150 mg/dL Borderline high 150 - 199 mg/dL High 200 - 499 mg/dL Very High > or = 500 mg/dL CHOL 193 mg/dL (Normal) Comments: <200 mg/dL Desirable 200-240 mg/dL Borderline >240 mg/dL High Risk D BILI 0.20 mg/dL (Normal) Range: 0.00-0.30 T BILI 1.00 mg/dL (Normal) Range: 0.20-1.00 ALT 31 U/L (Normal) Range: 12-78 ALK P 69 U/L (Normal) Range: 45-117 AST 18 U/L (Normal) Range: 15-37 PHOS 2.8 mg/dL (Normal) Range: 2.5-4.9 CA 8.9 mg/dL (Normal) Range: 8.5-10.1 A/G 0.9 {RATIO} (Normal) Range: 0.9-2.4 GLOB 3.6 g/dL (Abnormal) Range: 2.3-3.5 ALB 3.4 g/dL (Normal) Range: 3.4-5.0 T PROT 7.0 g/dL (Normal) Range: 6.4-8.2 URIC 4.3 mg/dL (Normal) Range: 2.6-6.0 Comments: The drugs N-Acetylcysteine and Metamizole may falsely deressthis assay. BUN/CRE 28.3 {RATIO} (Abnormal) Range: 10-20 EST GFR - AA 117 mL/min (Normal) Comments: GFR Calc EST GFR 97 mL/min (Normal) Comments: Non- GFR Calc CREAT,SERUM 0.67 mg/dL (Normal) Range: 0.55-1.02 Comments: The validity of the calculated GFR AND GFRAA in patients over70 years has not been determined. Clinical correlation isessential. BUN 19 mg/dL (Abnormal) Range: 7-18 GLU 102 mg/dL (Normal) Range: 70-110 :18 Nicotine Urine Drug Screen Comments: [facility] [address] [place], [place], [phone] COT DRG SCREEN Negative (Normal) Comments: Cotinine is the first-stage metabolite of Nicotine. TO BE CONFIRMED (Normal) Comments: CONFIRMATORY TESTING FOR ALL POSITIVE URINE DRUG SCREENRESULTS WILL ONLY BE SENT OUT UPON PHYSICIAN ORDER.The results of Urine Drug Screen methods provide onlypreliminary analytical test results. A more specificalternate chemical method must be used in order to obtain aconfirmed analytical result. Gas chromatography/massspectrometery (GC/MS) is the preferred confirmatory method.Clinical consideration and professional judgement should beapplied to any drug of abuse test result, particularly whenpreliminary positive results are used. :18 Urinalysis, Employee Comments: [facility] [address] [place], [place], [phone] LEUK ESTERASE 25 /ul (Abnormal) OCCULT BLOOD-UR 10 /ul (Abnormal) NITRITE UR Negative (Normal) UROBILI Normal mg/dL (Normal) PROT DIPSTX Negative mg/dL (Normal) pH UR 5.0 (Normal) Range: 5.0 - 8.0 SP.GR. DIPSTX 1.020 (Normal) Range: 1.002-1.030 KETONE UR Negative mg/dL (Normal) BILIRUBIN URINE Negative mg/dL (Normal) GLUCOSE, UR Normal mg/dL (Normal) CLARITY Clear (Normal) COLOR Yellow (Normal) :46 CBC, Employee Comments: [facility] [address] [facility] [address] [place], [place], [id number] Absolute Lymph 1.85 {X10_3/ul} (Normal) Range: 0.83-4.51 Absolute Neut 5.0 {X10_3/uL} (Normal) Range: 2.0-7.7 BASO% 0.5 % (Normal) Range: 0-1 EO% 2.6 % (Normal) Range: 0-5 MONO% 8.9 % (Normal) Range: 0-10 LY% 23.8 % (Normal) Range: 19-41 NEUT% 64.1 % (Normal) Range: 47-70 MPV 10.3 fL (Normal) Range: 6.2-12.0 PLT 315 K/mm3 (Normal) Range: 150-450 RDW SD 41.2 fL (Normal) Range: 35.1-43.9 RDW CV 12.6 % (Normal) Range: 11.6-14.6 MCHC 33.9 {g/gl} (Normal) Range: 32-36 MCH 30.6 pg (Normal) Range: 27.0-32.0 MCV 90.3 fL (Normal) Range: 81-99 HCT 41.9 % (Normal) Range: 37-47 HGB 14.2 g/dL (Normal) Range: 12.0-15.0 RBC 4.64 {M/mm3} (Normal) Range: 4.2-5.4 WBC 7.8 K/mm3 (Normal) Range: 4.4-11.0 :46 Employee Profile Comments: [facility] [address] [place], [address] LDH 188 U/L (Normal) Range: 84-246 VLDL 33 mg/dL (Normal) Range: 5-40 LDL 108 mg/dL (Normal) Range: 0-130 CHOL:HDL 3.20 (Normal) HDL 65 mg/dL (Normal) Comments: The drugs N-Acetylcysteine and Metamizole may falsely deressthis assay. Reference Range HDL <40 mg/dL Low HDL Cholesterol HDL >or= 60 mg/dL High HDL Cholesterol GAP 7 (Normal) Range: 5-15 CO2 26.0 mmol/L (Normal) Range: 21.0-32.0 CL 106 mmol/L (Normal) Range: 98-107 K 3.8 mmol/L (Normal) Range: 3.5-5.1 NA 139 mmol/L (Normal) Range: 136-145 TRIG 167 mg/dL (Normal) Comments: The drugs N-Acetylcysteine and Metamizole may falsely deressthis assay.Serum Triglycerides Reference Interval Normal <150 mg/dL Borderline high 150 - 199 mg/dL High 200 - 499 mg/dL Very High > or = 500 mg/dL CHOL 206 mg/dL (Abnormal) Comments: <200 mg/dL Desirable 200-240 mg/dL Borderline >240 mg/dL High Risk D BILI 0.18 mg/dL (Normal) Range: 0.00-0.30 T BILI 1.20 mg/dL (Abnormal) Range: 0.20-1.00 ALT 33 U/L (Normal) Range: 12-78 ALK P 73 U/L (Normal) Range: 50-136 AST 24 U/L (Normal) Range: 15-37 PHOS 2.8 mg/dL (Normal) Range: 2.5-4.9 CA 8.9 mg/dL (Normal) Range: 8.5-10.1 A/G 1.0 {RATIO} (Normal) Range: 0.9-2.4 GLOB 3.7 g/dL (Abnormal) Range: 2.3-3.5 ALB 3.6 g/dL (Normal) Range: 3.4-5.0 T PROT 7.3 g/dL (Normal) Range: 6.4-8.2 URIC 4.6 mg/dL (Normal) Range: 2.6-6.0 Comments: The drugs N-Acetylcysteine and Metamizole may falsely deressthis assay. BUN/CRE 19.0 {RATIO} (Normal) Range: 10-20 EST GFR - AA 97 mL/min (Normal) Comments: GFR Calc EST GFR 80 mL/min (Normal) Comments: Non- GFR Calc CREAT,SERUM 0.79 mg/dL (Normal) Range: 0.55-1.20 Comments: The validity of the calculated GFR AND GFRAA in patients over70 years has not been determined. Clinical correlation isessential. BUN 15 mg/dL (Normal) Range: 7-18 GLU 95 mg/dL (Normal) Range: 70-110 :46 Nicotine Urine Drug Screen Comments: [facility] [address] [place], [place], [phone] COT DRG SCREEN Negative (Normal) Comments: Cotinine is the first-stage metabolite of Nicotine. TO BE CONFIRMED (Normal) Comments: CONFIRMATORY TESTING FOR ALL POSITIVE URINE DRUG SCREENRESULTS WILL ONLY BE SENT OUT UPON PHYSICIAN ORDER.The results of Urine Drug Screen methods provide onlypreliminary analytical test results. A more specificalternate chemical method must be used in order to obtain aconfirmed analytical result. Gas chromatography/massspectrometery (GC/MS) is the preferred confirmatory method.Clinical consideration and professional judgement should beapplied to any drug of abuse test result, particularly whenpreliminary positive results are used. :46 Urinalysis, Employee Comments: How was Urine Obtained? [facility] [address] [place], [address] LEUK ESTERASE 25 /ul (Abnormal) OCCULT BLOOD-UR 10 /ul (Abnormal) NITRITE UR Negative (Normal) UROBILI Normal mg/dL (Normal) PROT DIPSTX 30 mg/dL (Abnormal) pH UR 5.0 (Normal) Range: 5.0 - 8.0 SP.GR. DIPSTX 1.025 (Normal) Range: 1.002-1.030 KETONE UR Negative mg/dL (Normal) BILIRUBIN URINE 1 mg/dL (Abnormal) Comments: COLOR OF URINE MAY AFFECT DIPSTICK RESULTS. GLUCOSE, UR Normal mg/dL (Normal) CLARITY Sl. Cloudy (Normal) COLOR Yellow (Normal) 75-Dsx-80711:16 CBC, Employee Comments: Test performed at:[facility] [address] [facility] [place], [place] [address] ; fu 8-19 Absolute Lymph 1.68 {X10_3/ul} (Normal) Range: 0.83-4.51 Absolute Neut 4.5 {X10_3/uL} (Normal) Range: 2.0-7.7 BASO% 0.6 % (Normal) Range: 0-1 EO% 1.7 % (Normal) Range: 0-5 MONO% 8.3 % (Normal) Range: 0-10 LY% 24.1 % (Normal) Range: 19-41 NEUT% 65.2 % (Normal) Range: 47-70 MPV 10.8 fL (Normal) Range: 6.2-12.0 PLT 313 K/mm3 (Normal) Range: 150-450 RDW SD 40.6 fL (Normal) Range: 35.1-43.9 RDW CV 12.4 % (Normal) Range: 11.6-14.6 MCHC 34.8 {g/gl} (Normal) Range: 32-36 MCH 31.3 pg (Normal) Range: 27.0-32.0 MCV 89.8 fL (Normal) Range: 81-99 HCT 37.9 % (Normal) Range: 37-47 HGB 13.2 g/dL (Normal) Range: 12.0-15.0 RBC 4.22 {M/mm3} (Normal) Range: 4.2-5.4 WBC 7.0 K/mm3 (Normal) Range: 4.4-11.0 00-Jen-14779:16 Employee Profile Comments: Test performed at:[facility] [address] [place] [address] LDH 203 U/L (Normal) Range: 84-246 VLDL 16 mg/dL (Normal) Range: 5-40 LDL 94 mg/dL (Normal) Range: 0-130 HDLEMP 53 mg/dL (Normal) Comments: Reference Range HDL <40 mg/dL Low HDL Cholesterol HDL >or= 60 mg/dL High HDL Cholesterol HDL 53 mg/dL (Normal) Comments: Reference Range HDL <40 mg/dL Low HDL Cholesterol HDL >or= 60 mg/dL High HDL Cholesterol GAP 8 (Normal) Range: 5-15 CO2 23.0 mmol/L (Normal) Range: 21.0-32.0 CL 106 mmol/L (Normal) Range: 98-107 K 3.9 mmol/L (Normal) Range: 3.5-5.1 NA 137 mmol/L (Normal) Range: 136-145 TRIG 82 mg/dL (Normal) Comments: Serum Triglycerides Reference Interval Normal <150 mg/dL Borderline high 150 - 199 mg/dL High 200 - 499 mg/dL Very High > or = 500 mg/dL CHOL 163 mg/dL (Normal) Comments: <200 mg/dL Desirable 200-240 mg/dL Borderline >240 mg/dL High Risk D BILI 0.15 mg/dL (Normal) Range: 0.00-0.30 T BILI 0.90 mg/dL (Normal) Range: 0.20-1.00 ALT 25 U/L (Normal) Range: 12-78 ALK P 68 U/L (Normal) Range: 50-136 AST 21 U/L (Normal) Range: 15-37 PHOS 3.5 mg/dL (Normal) Range: 2.5-4.9 CA 8.8 mg/dL (Normal) Range: 8.5-10.1 A/G 1.0 {RATIO} (Normal) Range: 0.9-2.4 GLOB 3.3 g/dL (Normal) Range: 2.3-3.5 ALB 3.4 g/dL (Normal) Range: 3.4-5.0 T PROT 6.7 g/dL (Normal) Range: 6.4-8.2 URIC 4.0 mg/dL (Normal) Range: 2.6-6.0 BUN/CRE 28.1 {RATIO} (Abnormal) Range: 10-20 EST GFR - AA 125 mL/min (Normal) EST GFR 103 mL/min (Normal) CREAT,SERUM 0.64 mg/dL (Normal) Range: 0.55-1.20 Comments: Please note revised CREATININE reference range zbyzepvqj83/22/2015. BUN 18 mg/dL (Normal) Range: 7-18 GLU 95 mg/dL (Normal) Range: 70-110 47-Jix-41410:16 Urinalysis, Employee Comments: Test performed at:[facility] [address] [place] [address] LEUK ESTERASE 25 /ul (Abnormal) OCCULT BLOOD-UR 50 /ul (Abnormal) NITRITE UR Negative (Normal) UROBILI Normal mg/dL (Normal) PROT DIPSTX Negative mg/dL (Normal) pH UR 5.0 (Normal) Range: 5.0 - 8.0 SP.GR. DIPSTX 1.025 (Normal) Range: 1.002-1.030 KETONE UR 5 mg/dL (Abnormal) BILIRUBIN URINE 1 mg/dL (Abnormal) Comments: COLOR OF URINE MAY AFFECT DIPSTICK RESULTS. GLUCOSE, UR Normal mg/dL (Normal) CLARITY Sl. Cloudy (Normal) COLOR Yellow (Normal) 21-Mar-20147:00 CBCEM ALC 1.50 {X10_3/ul} (Normal) Range: 0.83-4.51 ANC 4.0 {X10_3/uL} (Normal) Range: 2.0-7.7 tB% 0.5 % (Normal) Range: 0-1 tE% 2.1 % (Normal) Range: 0-5 tM% 8.4 % (Normal) Range: 0-10 tL% 24.2 % (Normal) Range: 19-41 MPV 11.4 fL (Normal) Range: 6.2-12.0 tN% 64.6 % (Normal) Range: 47-70 PLT 349 K/mm3 (Normal) Range: 150-450 RDWSD 40.1 fL (Normal) Range: 35.1-43.9 RDWCV 12.4 % (Normal) Range: 11.6-14.6 MCHC 34.1 {g/gl} (Normal) Range: 32-36 MCH 30.4 pg (Normal) Range: 27.0-32.0 MCV 89.2 fL (Normal) Range: 81-99 HCT 40.5 % (Normal) Range: 37-47 HGB 13.8 g/dL (Normal) Range: 12.0-15.0 RBC 4.54 {M/mm3} (Normal) Range: 4.2-5.4 WBC 6.2 K/mm3 (Normal) Range: 4.4-11.0 :00 CMP GAP 8 (Normal) Range: 5-15 CO2 28.0 mmol/L (Normal) Range: 21.0-32.0 CL 104 mmol/L (Normal) Range: 98-107 K 3.4 mmol/L (Abnormal) Range: 3.5-5.1 NA 140 mmol/L (Normal) Range: 136-145 BIT 1.40 mg/dL (Abnormal) Range: 0.00-1.00 ALT 29 U/L (Normal) Range: 12-78 ALK 64 U/L (Normal) Range: 45-117 AST 23 U/L (Normal) Range: 15-37 CA 9.2 mg/dL (Normal) Range: 8.5-10.1 AG 1.0 {RATIO} (Normal) Range: 0.9-2.4 GLOB 3.5 g/dL (Normal) Range: 2.7-4.2 ALB 3.6 g/dL (Normal) Range: 3.4-5.0 TPROT 7.1 g/dL (Normal) Range: 6.4-8.2 BC 24.3 {RATIO} (Abnormal) Range: 10-20 GFR 93 mL/min (Normal) GFRAA 113 mL/min (Normal) CREAT 0.7 mg/dL (Normal) Range: 0.6-1.0 BUN 17 mg/dL (Normal) Range: 7-18 GLU 96 mg/dL (Normal) Range: 70-110 :00 EMP LDH 186 U/L (Normal) Range: 87-241 VLDL 16 mg/dL (Normal) Range: 5-40 LDL 101 mg/dL (Normal) Range: 0-130 HDLEMP 63 mg/dL (Normal) Comments: Reference RangeHDL <40 mg/dL Low HDL CholesterolHDL >or= 60 mg/dL High HDL Cholesterol HDL 63 mg/dL (Normal) Comments: Reference RangeHDL <40 mg/dL Low HDL CholesterolHDL >or= 60 mg/dL High HDL Cholesterol GAP 8 (Normal) Range: 5-15 CO2 28.0 mmol/L (Normal) Range: 21.0-32.0 CL 104 mmol/L (Normal) Range: 98-107 K 3.4 mmol/L (Abnormal) Range: 3.5-5.1 NA 140 mmol/L (Normal) Range: 136-145 TRIG 79 mg/dL (Normal) Range: 0-199 Comments: Serum Triglycerides Reference IntervalNormal <150 mg/dLBorderline high 150 - 199 mg/dLHigh 200 - 499 mg/ dLVery High > or = 500 mg/dL CHOL 180 mg/dL (Normal) Comments: <200 mg/dL Ullyrxdmc872-596 mg/dL Borderline>240 mg/dL High Risk BID 0.23 mg/dL (Normal) Range: 0.00-0.30 BIT 1.40 mg/dL (Abnormal) Range: 0.00-1.00 ALT 29 U/L (Normal) Range: 12-78 ALK 64 U/L (Normal) Range: 45-117 AST 23 U/L (Normal) Range: 15-37 PHOS 3.1 mg/dL (Normal) Range: 2.5-4.9 CA 9.2 mg/dL (Normal) Range: 8.5-10.1 AG 1.0 {RATIO} (Normal) Range: 0.9-2.4 GLOB 3.5 g/dL (Normal) Range: 2.7-4.2 ALB 3.6 g/dL (Normal) Range: 3.4-5.0 TPROT 7.1 g/dL (Normal) Range: 6.4-8.2 URIC 4.7 mg/dL (Normal) Range: 2.6-6.0 BC 24.3 {RATIO} (Abnormal) Range: 10-20 GFRAA 113 mL/min (Normal) GFR 93 mL/min (Normal) CREAT 0.7 mg/dL (Normal) Range: 0.6-1.0 BUN 17 mg/dL (Normal) Range: 7-18 GLU 96 mg/dL (Normal) Range: 70-110 :00 UAEM HEIDY 25 /ul (Abnormal) UOB 10 /ul (Abnormal) LEDY Negative (Normal) UROBU 1 mg/dL (Abnormal) uPROTU 15 mg/dL (Abnormal) MICHAEL 5.0 (Normal) Range: 5.0 - 8.0 KETU 5 mg/dL (Abnormal) SGU 1.025 (Normal) Range: 1.002-1.030 BILIU 3 mg/dL (Abnormal) Comments: COLOR OF URINE MAY AFFECT DIPSTICK RESULTS. GLUR Normal mg/dL (Normal) UCLAR Cloudy (Normal) UCOL Yellow (Normal) :00 VITD 36.5 mg/mL (Normal) Comments: Vitamin D 25(OH) Status RangeDeficiency <20 ng/mL (50nmol/L)Insuffciency 20 - 30 ng/mL (50 - 75 nmol/L)Sufficiency 30 - 100 ng/mL (75 - 250 nmol/L)Toxicity >100 ng/mL (>250 nmol/L) [id number] Vitamin D Hydroxy (00285) Comments: PATIENT NOT FASTINGPERFORMED BY: [email or web address] [facility] [id number] Vitamin D, 25-Hydroxy 22.5 ng/mL (Abnormal) Range: 30.0-100.0 Comments: Vitamin D deficiency has been defined by the [place] [facility] and an [employer]ocrine Society practice guideline as alevel of serum 25-OH vitamin D less than 20 ng/mL (1,2).The Endocrine Society went on to further define vitamin Dinsufficiency as a level between 21 and 29 ng/mL (2).1. IOM ([place] [employer]). 2010. Dietary reference intakes for calcium and D. [place]: The National Academies Press.2. Emily MF, Peggy [place], [employer] PACHECO, et al. Evaluation, treatment, and prevention of vitamin D deficiency: an Endocrine Society clinical practice guideline. JCEM. 2010; 96(7):1911-30. :13 PHOSPHORUS (40146) Comments: PATIENT NOT FASTINGPERFORMED BY: [employer]70 [facility] [id number] Phosphorus, Serum 3.2 mg/dL (Normal) Range: 2.5-4.5 47-Lcp-464550:13 PARATHORMONE (24021) Comments: PATIENT NOT FASTINGPERFORMED BY: [facility]CoRobert [facility] Johnson University HospitalYqerio5680 [facility] [id number] PTH, Intact 36 pg/mL (Normal) Range: 15-65 38-Ogj-477424:13 METABOLIC PANEL, Comments: PATIENT NOT FASTINGPERFORMED BY: LabCoRobert [facility] Johnson University HospitalIneqwc3172 [facility] [id number] Information: [id number] COMPREHENSIVE (29497) ALT (SGPT) 20 [iU]/L (Normal) Range: 0-32 AST (SGOT) 22 [iU]/L (Normal) Range: 0-40 Alkaline Phosphatase, S 60 [iU]/L (Normal) Range: 39-117 A/G Ratio 1.6 (Normal) Range: 1.1-2.5 Bilirubin, Total 0.5 mg/dL (Normal) Range: 0.0-1.2 Globulin, Total 2.5 g/dL (Normal) Range: 1.5-4.5 Albumin, Serum 4.0 g/dL (Normal) Range: 3.5-5.5 Protein, Total, Serum 6.5 g/dL (Normal) Range: 6.0-8.5 Calcium, Serum 9.6 mg/dL (Normal) Range: 8.7-10.2 Carbon Dioxide, Total 22 mmol/L (Normal) Range: 19-28 Chloride, Serum 105 mmol/L (Normal) Range: 97-108 Potassium, Serum 3.8 mmol/L (Normal) Range: 3.5-5.2 Sodium, Serum 141 mmol/L (Normal) Range: 134-144 BUN/Creatinine Ratio 21 (Normal) Range: 9-23 eGFR If Africn Am 120 mL/min/1.73 (Normal) eGFR If NonAfricn Am 104 mL/min/1.73 (Normal) Creatinine, Serum 0.62 mg/dL (Normal) Range: 0.57-1.00 BUN 13 mg/dL (Normal) Range: 6-24 Glucose, Serum 96 mg/dL (Normal) Range: 65-99 :06 CBCD ANC 4.5 {X10_3/uL} (Normal) Range: 2.0-7.7 B% 0.3 % (Normal) Range: 0-1 IG% 0.100 % (Normal) Range: 0.0-0.9 Comments: IG% - Immature Granulocytes (promyelocytes, myelocytes andmetamyelocytes) > 1% indicates that a LEFT SHIFT is Present. E% 1.9 % (Normal) Range: 0-5 L% 23.8 % (Normal) Range: 19-41 M% 7.3 % (Normal) Range: 0-10 N% 66.6 % (Normal) Range: 47-70 MPV 10.9 fL (Normal) Range: 6.2-12.0 PLT 292 K/mm3 (Normal) Range: 150-450 RDWSD 39.9 fL (Normal) Range: 35.1-43.9 MCHC 34.0 {g/gl} (Normal) Range: 32-36 RDWCV 12.5 % (Normal) Range: 11.6-14.6 MCH 30.1 pg (Normal) Range: 27.0-32.0 MCV 88.5 fL (Normal) Range: 81-99 HCT 39.4 % (Normal) Range: 37-47 HGB 13.4 g/dL (Normal) Range: 12.0-15.0 RBC 4.45 {M/mm3} (Normal) Range: 4.2-5.4 WBC 6.8 K/mm3 (Normal) Range: 4.4-11.0 :06 CMP GAP 7 (Normal) Range: 5-15 CL 106 mmol/L (Normal) Range: 98-107 CO2 25.0 mmol/L (Normal) Range: 21.0-32.0 K 3.8 mmol/L (Normal) Range: 3.5-5.1 NA 138 mmol/L (Normal) Range: 136-145 BIT 1.50 mg/dL (Abnormal) Range: 0.00-1.00 ALT 28 U/L (Normal) Range: 12-78 ALK 75 U/L (Normal) Range: 50-136 AST 23 U/L (Normal) Range: 15-37 CA 8.5 mg/dL (Normal) Range: 8.5-10.1 AG 1.0 {RATIO} (Normal) Range: 0.9-2.4 GLOB 3.4 g/dL (Normal) Range: 2.7-4.2 ALB 3.5 g/dL (Normal) Range: 3.4-5.0 TPROT 6.9 g/dL (Normal) Range: 6.4-8.2 BC 20.0 {RATIO} (Normal) Range: 10-20 GFRAA 114 mL/min (Normal) GFR 94 mL/min (Normal) CREAT 0.7 mg/dL (Normal) Range: 0.6-1.0 BUN 14 mg/dL (Normal) Range: 7-18 GLU 83 mg/dL (Normal) Range: 70-110 :06 FT3 2.7 pg/mL (Normal) Range: 2.18-3.98 :06 LIPID HDL 59 mg/dL (Normal) Comments: Reference RangeHDL <40 mg/dL Low HDL CholesterolHDL >or= 60 mg/dL High HDL Cholesterol LDL 119 mg/dL (Normal) Range: 0-130 VLDL 17 mg/dL (Normal) Range: 5-40 TRIG 87 mg/dL (Normal) Range: 0-199 Comments: Serum Triglycerides Reference IntervalNormal <150 mg/dLBorderline high 150 - 199 mg/dLHigh 200 - 499 mg/ dLVery High > or = 500 mg/dL CHOL 195 mg/dL (Normal) Comments: <200 mg/dL Bpkkpzwli371-171 mg/dL Borderline>240 mg/dL High Risk :06 MIACRE MIALB 10.0 mg/L (Normal) tMICROCREAT 5.2 {mg/g_CRE} (Normal) CREU 190.0 mg/dL (Normal) :06 PTHIN 74 pg/mL (Abnormal) Range: 14-72 :06 T4F 1.07 ng/dL (Normal) Range: 0.76-1.46 :06 TSH 1.68 {uIU/mL} (Normal) Range: 0.358-3.74 :46 GALLBLADDER Radiology See Note Comments: STUDY: ABDOMINAL ULTRASOUND - RIGHT UPPER QUADRANT REASON FOR VISIT: Female, 52 years old. Elevated bilirubin levels. TECHNIQUE: Ultrasound evaluation of the right upper quadrant wasperformed wit Report (Normal) h real-time and static lindo-scale imaging. TECHNICAL QUALITY: Adequate. COMPARISON: None. FINDINGS: Liver: The liver measures 13.6 cm. There is normal echogenic ity of theliver. The bile ducts are within normal limits. There is hepatic colorflow. The direction of portal flow is hepatopetal. There is a 1.4 cm x1.4 cm x 0.9 cm cyst in the right lobe. There i s a 2 cm x 1.9 cm x 1.5cmcyst in the left lobe. Gallbladder: Normal distended gallbladder. The gallbladder wallmeasures2.1 mm. There is a negative sonographic Richter's sign. There is nopericholecys tic fluid. There are no gallstones. Common Bile Duct (C.B.D.): The common bile duct measures 4.0 mm. Pancreas: Normal size of the head, body of the pancreas. The tailportion is obscured due to o verlying bowel gas. There is normalechogenicity of the pancreas. There is no demonstrated pancreatic massorcyst. Right Kidney: Normal size of the right kidney. The right hcawdxfkdwssmm65.1 cm. Nor mal renal cortex. The right cortex measures 1.4 cm. Thereisno demonstrated renal mass or cyst. There is no right hydronephrosis. IMPRESSION:Small hepatic cysts. Sig beatriz:Leo Guardado M.D.March 23, 2013 at 10:17:49 AM [id number] Signed GP/GP If you are the referring physician and would like to consult with theradiologist who provided this interpretation, please contact Jose M Pichardo at [phone]. If this radiologist is unavailable, youwill be directed to another radiologist to assist. If you are a patient with a question re garding this report, pleasecontactyour referring physician directly. Professional Interpretation Provided By: [employer], Phone , These documents contain legally protected and confidential healthinformation intended only for the use of the individual or entity namedabove. If you are not the intended recipient, you are hereby notifiedthatany disclosure, copying, distribut ion, or other use of these documents isstrictly prohibited. If you have received this information in error,pleasenotify the sender immediately and arrange for the return or destructionofthese documents. Dictated on 03/23/13 1017 by Geo BRICEÑO,JesúsrieleTranscribed on 03/23/13 1019 by ITS IMPORTSign by Geo BRICEÑO,Leo on 03/23/13 1020 Sign by: _ Leo Guardado MD 29-Au BID 0.18 mg/dL Range: 0.00-0.30 g-201 (Normal) 315:4 9 29-Au BIT 1.10 mg/dL Range: 0.00-1.00 g-201 (Abnormal) 315:4 9 39-Mhj-17198:19 Urinalysis, Office ([id number]) UA - BILIRUBIN Negative (Normal) UA - BLOOD Non Hemolyzed Trace (Normal) UA - GLUCOSE Negative (Normal) UA - KETONES Negative mg/dL (Normal) UA - LEUKOCYTE ESTERASE Negative (Normal) UA - NITRITE Negative (Normal) UA - PH 6.0 (Normal) UA - PROTEIN Negative mg/dL (Normal) UA - SPECIFIC GRAVITY 1.020 (Normal) URINE UROBILINGN CHRISTEN TIMED Normal mg/dL (Normal) :57 HgA1C , Office ([id number]) Comments: 5.4 HgA1C , Office 5.4 % (Normal) Range: 4.6 - 7.1 :57 Blood Glucose , Office (98204) Comments: 75 Blood Glucose , 75 (Normal) Office MISC (Normal) Comments: VMA, Random Urine RESULTS LIMITSVMA, Random Urine 6.6 mg/L UndefinedVMA/Central Office Inspector, Random U 3.6 mg/g Creat 0.0-6.0 CHRISTEN :40 TING PERFORMED AT [facility]. ORIGINAL REPORT ON FILE IN LAB CONTAINS ADDITIONAL TEST SITE INFORMATION. [id number] MISC2 (Normal) Comments: Catecholamines, Ur., Free, Random RESULT LIMITSCreatinine, Random U 181.1 mg/dL 15.0-278.0Epinephrine, Urine 1 ug/L UndefinedEpinephrine :40 1 ug/g Creat 0-19Norepinephrine, Urine 52 ug/L UndefinedNorepinephrine 29 ug/g Creat 0-111Dopamine, Urine 409 ug/L UndefinedDopamine 226 ug/g Crea t 0-348 TESTING PERFORMED AT [facility]. ORIGINAL REPORT ON FILE IN LAB CONTAINS ADDITIONAL TEST SITE INFORMATION. MISC3 (Normal) Comments: Metanephrines, Pheochromocyt RESULT LIMITSNormetanephrine, Ur 369 ug/L UndefinedMetanephrine, Ur 147 ug/L UndefinedMetaneph/Creat Ratio 0.3 UG/ :40 MG Creat 0.0-1.0 TESTING PERFORMED AT [facility]. ORIGINAL REPORT ON FILE IN LAB CONTAINS ADDITIONAL TEST SITE INFORMATION. OTTO 6.56 {ng/mL/hr} Comments: Adult Normal Salt Intake: Upright 1.31 - 3.95 Supine 0.15 - 2. 5:51 (Normal) 33 . Salt Excretion (Na mEq/24 hr): Na= 0 - 30 8.82 - 23.86 Na= 30 - 75 4.09 - 7.73 Na= 75 - 150 1.44 - 2.80 Na= >150 0.39 - 1.31Performed at: [address] [id number] Director: Ariel Jung MD, Phone: [phone] 02-Iok-763436:59 KIDNEY Radiology Report See Note (Normal) Comments: PROCEDURE: RENAL ULTRASOUND - COMPLETE REASON FOR EXAM: Female, 51 years old. Hypertension. TECHNIQUE: Ultrasound evaluation of the kidneys was performed withreal-time and static henning -scale imagi ng. COMPARISON: None. FINDINGS: RIGHT KIDNEY: Normal location of the right kidney, which is normal insize. The right kidney measures 11.3 x 4.3 x 4.4 cm. There is a normalcortex of the right kidne y. The renal cortex measures 1.3 cm.Corticomedullary differentiation is well maintained. There is no rightrenal mass or cyst. Two small, non-shadowing echogenic foci are presentwithin the upper pole. There is no right hydronephrosis. Renal bloodflowis intact. DISTAL RIGHT URETER: There is non-visualization of the distal rightureter. There is no demonstrated right ureteral jet. LEFT KIDNEY: Norm al location of the left kidney, which is normal insize.The left kidney measures 11.9 x 4.4 x 5.5 cm. There is a normal cortexofthe left kidney. The renal cortex measures 2.1 cm. Corticomedullarydiffer entiation is well maintained. There is no left renal mass or cyst.There are no left renal calculi. There is no left hydronephrosis. Renalblood flow is intact. DISTAL LEFT URETER: There is non-visualiz ation of the distal leftureter.There is no demonstrated left ureteral jet. IMPRESSION:Small, nonobstructive parenchymal versus vascular calcifications upperpoleof right kidney. Otherwise normal study. Signed:Jatinder Hanson M.D.June 02, 2012 at 4:09:04 PM [id number] Signed DL/DL If you are the referring physician and would like to consult with theradiologist who provided this i nterpretation, please contact Jose M Costello at [phone]. If this radiologist is unavailable, youwillbe directed to another radiologist to assist. If you are a patient with a question regarding this report, pleasecontactyour referring physician directly. Professional Interpretation Provided By: [employer], Phone , These documents contain legally protected and co nfidential healthinformation intended only for the use of the individual or entity namedabove. If you are not the intended recipient, you are hereby notifiedthatany disclosure, copying, distribution, or other use of these documents isstrictly prohibited. If you have received this information in error,pleasenotify the sender immediately and arrange for the return or destructionofthese documents. Dic tated on 06/02/12 1532 by Jatinder Hanson MDTranscribed on 06/02/12 1620 by ITS IMPORTSign by Jatinder Hanson MD on 06/02/12 1621 Sign by: Jatinder Hanson MD :50 MIACRE tMICROCREAT 7.8 {mg/g_CRE} (Normal) MIALB 10.8 mg/L (Normal) CREU 136.8 mg/dL (Normal) :50 TSH 1.80 {uIU/mL} (Normal) Range: 0.358-3.74 :[address] [facility] UMUC 0 SEEN {/hpf} (Normal) UBAC RARE {/hpf} (Normal) UEPIS 5-10 SEEN {/hpf} (Normal) Range: 5-10 URBC 0 SEEN {/hpf} (Normal) Range: 0-5 UWBC 0-5 SEEN {/hpf} (Normal) Range: 0-5 HEIDY Negative (Normal) UOB Negative (Normal) LEDY Negative (Normal) UROBU 0.2 EU/dl (Normal) Range: 0.2 - 1.0 uPROTU Negative (Normal) MICHAEL 7.0 (Normal) Range: 5.0-8.0 SGU 1.010 (Normal) Range: 1.002-1.030 KETU Negative mg/dL (Normal) BILIU Negative (Normal) GLUR Negative (Normal) UCLAR SL CLOUDY (Normal) UCOL YELLOW (Normal) Plan of Care Name Dates Details Instructions BMI 30.0-30.9,adult : Follow up - Make appt after diagnostic tests Indication: BMI 30.0-30.9,adult Nonsmoker : Eprescribed prescriptions (G8553) Indication: Nonsmoker Encounter for gynecological examination without abnormal finding : Eprescribed prescriptions (G8553) Indication: Encounter for gynecological examination without abnormal finding Encounter for gynecological examination without abnormal finding : Safe sex Indication: Encounter for gynecological examination without abnormal finding Encounter for gynecological examination without abnormal finding : HPV Vaccine Information 2005 Indication: Encounter for gynecological examination without abnormal finding Encounter for gynecological examination without abnormal finding : Self breast exam Indication: Encounter for gynecological examination without abnormal finding Encounter for gynecological examination without abnormal finding : *Well Female Maintenance ([facility]) Indication: Encounter for gynecological examination without abnormal finding Encounter for gynecological examination without abnormal finding : Pap/Pelvic/Bimanual/Rectal/Breast Exam was done. Indication: Encounter for gynecological examination without abnormal finding BMI 28.0-28.9,adult : Follow up for pap and well woman Indication: BMI 28.0-28.9,adult Hypertension, benign : Reviewed Lab Indication: Hypertension, benign Hypertension, benign : Reviewed Diagnostic Tests Indication: Hypertension, benign Hypertension, benign : Reviewed Diagnostic Tests Indication: Hypertension, benign Encounter for routine adult medical exam with abnormal findings : Reviewed Lab Indication: Encounter for routine adult medical exam with abnormal findings Encounter for routine adult medical exam with abnormal findings : Reviewed Diagnostic Tests Indication: Encounter for routine adult medical exam with abnormal findings Hypertension, benign : Eprescribed prescriptions (G8553) Indication: Hypertension, benign Nonsmoker : Follow up as needed Indication: Nonsmoker Encounter for screening for malignant neoplasm of colon (Renamed from Special screening for malignant neoplasms, colon) : *Colon Cancer Screening Indication: Encounter for screening for malignant neoplasm of colon (Renamed from Special screening for malignant neoplasms, colon) Encounter for routine adult medical exam with abnormal findings : Reviewed Diagnostic Tests Indication: Encounter for routine adult medical exam with abnormal findings UTI symptoms : Eprescribed prescriptions (G8553) Indication: UTI symptoms Neck pain on left side : Follow up if no improvement or if symptoms worsen Indication: Neck pain on left side Neck pain on left side : Eprescribed prescriptions (G8553) Indication: Neck pain on left side Screening for osteoporosis (Renamed from Encounter for screening for osteoporosis) : Follow up - Make appt after diagnostic tests Indication: Screening for osteoporosis (Renamed from Encounter for screening for osteoporosis) Encounter for screening for malignant neoplasm of colon (Renamed from Special screening for malignant neoplasms, colon) : *Colon Cancer Screening Indication: Encounter for screening for malignant neoplasm of colon (Renamed from Special screening for malignant neoplasms, colon) Encounter for routine adult medical exam with abnormal findings : Reviewed Lab Indication: Encounter for routine adult medical exam with abnormal findings Encounter for routine adult medical exam with abnormal findings : Reviewed Diagnostic Tests Indication: Encounter for routine adult medical exam with abnormal findings Encounter for pre-employment examination : Eprescribed prescriptions (G8553) Indication: Encounter for pre-employment examination Hypertension, benign : Eprescribed prescriptions (G8553) Indication: Hypertension, benign Hypoalbuminemia : Follow up in 3 months Indication: Hypoalbuminemia Hypocalcemia : Reviewed Lab Indication: Hypocalcemia Hypoalbuminemia : Reviewed Lab Indication: Hypoalbuminemia Hypocalcemia : Continue Current Prescription(s) Indication: Hypocalcemia Hypoalbuminemia : Diet, Exercise, and Wt loss Indication: Hypoalbuminemia Hypertension, benign : Reviewed Lab Indication: Hypertension, benign Abdominal complaints : Reviewed Diagnostic Tests Indication: Abdominal complaints Abdominal complaints : Reviewed Lab Indication: Abdominal complaints Elevated bilirubin : Follow up in 2 weeks Indication: Elevated bilirubin MIGRAINE NEC W/ MIGRAINE W/O STAT MIGRAINOSUS : Follow up in 4 months for Gen Med Indication: MIGRAINE NEC W/ MIGRAINE W/O STAT MIGRAINOSUS Hypertension, benign : Follow up in 3 months Indication: Hypertension, benign Hypertension, benign : Reviewed Diagnostic Tests Indication: Hypertension, benign Abnormal renal ultrasound : Reviewed Diagnostic Tests Indication: Abnormal renal ultrasound Abnormal renal ultrasound : Follow up in 3 months Indication: Abnormal renal ultrasound Hypertension, benign : Follow up in 6 weeks Indication: Hypertension, benign MIGRAINE NEC W/ MIGRAINE W/O STAT MIGRAINOSUS : Follow up in 1 month Indication: MIGRAINE NEC W/ MIGRAINE W/O STAT MIGRAINOSUS Encounter for pre-employment examination : Reviewed Lab Indication: Encounter for pre-employment examination Encounter for pre-employment examination : Reviewed Diagnostic Tests Indication: Encounter for pre-employment examination MIGRAINE NEC W/ MIGRAINE W/O STAT MIGRAINOSUS : Follow up in 2 weeks Indication: MIGRAINE NEC W/ MIGRAINE W/O STAT MIGRAINOSUS Hypertension, benign : Diet, Exercise, and Wt loss Indication: Hypertension, benign Hypertension, benign : HTN/CAD Red Flags Indication: Hypertension, benign Planned Observations PHOSPHORUS ([id number])Indication: Elevated parathyroid hormone On: :52 Request Comments: Mar 2018 PARATHORMONE ([id number])Indication: Elevated parathyroid hormone On: :52 Request Comments: Mar 2018 CALCIFEDIOL (11359)Indication: Elevated parathyroid hormone On: :51 Request Comments: Mar 2018 Thin prep Pap (27449) (no STD testing)Indication: Encounter for gynecological examination without abnormal finding On: :08 Request CALCIFEDIOL (19908)Indication: Hypophosphatemia On: 9-Iba-042832:25 Request PARATHORMONE (88081)Indication: Hypophosphatemia On: 4-Ekl-146282:24 Request URINALYSIS, W/ MICRO (62397)Indication: Other abnormal finding of urine On: 98-Vcz-979136:33 Request URINE FREYA CULTURE (CHRISTEN COL COUNT) (55161)Indication: Other abnormal finding of urine On: 18-Ygf-921692:33 Request Potassium Serum (71036)Indication: Hypokalemia (Renamed from Decreased potassium in the blood) On: :49 Request URINE FREYA CULTURE (CHRISTEN COL COUNT) (23988)Indication: Other abnormal finding of urine On: :49 Request URINALYSIS, W/ MICRO (06279)Indication: Other abnormal finding of urine On: :49 Request METABOLIC PANEL, COMPREHENSIVE (80123)Indication: Hypertension, benign On: :03 Request Vitamin D Hydroxy (88134)Indication: Vitamin D deficiency On: :02 Request CALCIFEDIOL (64692)Indication: Vitamin D deficiency On: 61-Ede-274702:55 Request T3, FREE (TRIDOTHYRONINE) (85256)Indication: Tachycardia On: :12 Request T4, FREE (THYROXINE) (20727)Indication: Tachycardia On: :12 Request TSH (03016)Indication: Tachycardia On: :12 Request PARATHORMONE (86244)Indication: Hypocalcemia On: :49 Request LIPID PANEL (90726)Indication: Hypertension, benign On: :49 Request MICROALBUMIN: CREATININE RATIO (81472) AND (45682)Indication: Hypertension, benign On: :49 Request CBC WITH MANUAL DIFF (23655)Indication: Migraine with aura and without status migrainosus, not intractable On: :49 Request METABOLIC PANEL, COMPREHENSIVE (17783)Indication: Hypocalcemia On: :49 Request Bilirubin, total (80084)Indication: Elevated bilirubin On: 54-Kmb-342781:08 Request Bilirubin, Direct (11977)Indication: Elevated bilirubin On: 87-Lex-063356:08 Request RENIN (79106)Indication: Hypertension, benign On: :54 Request METANEPHRINES - URINE (35717)Indication: Hypertension, benign On: :54 Request CATECHOLAMINES TOTAL, URINE (30415)Indication: Hypertension, benign On: :54 Request URINE VMA (05949)Indication: Hypertension, benign On: 27-May-20129:54 Request TSH (15098)Indication: Hypertension, benign On: : Request URINALYSIS, W/ MICRO (63288)Indication: Hypertension, benign On: 59-Yhz-593966:02 Request MICROALBUMIN: CREATININE RATIO (28585) AND (98490)Indication: Hypertension, benign On: 24-Zgt-570591:02 Request MICROALBUMIN URINE QUANT (81487)Indication: Hypertension, benign On: 37-Psk-157937:02 Request CREATININE, URINE (47597)Indication: Hypertension, benign On: 39-Qmh-615836:02 Request CBC WITH MANUAL DIFF (76852)Indication: Hypertension, benign On: :02 Request Planned Encounters Medical; Review Results - On: 06-May-2018 11:45 [facility] Giulia Graham CNP, CNP, Mary E Planned Procedures PARATHYROID SCAN ([id number])By: Santos On: 15-Apr-2018 Intent Giulia SCHREIBER CNP, Mary E Comments: to evaluate for parathyroid adenoma ELECTROCARDIOGRAM, COMPLETE (ECG) On: 21-Jan-2018 Intent ([id number])By: Giulia Graham CNP, CNP, Mary E SCREENING DIGITAL TOMOSYNTHESIS OF On: 01-Mar-2017 Intent BREAST (21404)By: Giulia Graham CNP, CNP, Mary E PHYSICAL THERAPY (83686)By: Frederic On: 08-Dec-2016 Intent Vianey Comments: Dry Needle if needed. Radiology - Cervical SpineBy: On: 08-Dec-2016 Intent Vianey De La Garza MAMMOGRAM, SCREENING, BOTH BREAST On: 03-Mar-2016 Intent (82421)By: Giulia Graham CNP, CNP, Mary E DEXA SCAN AXIAL SKELETON (55810)By: On: 03-Mar-2016 Intent Giulia Graham CNP, CNP, Mary E MAMMOGRAM, SCREENING, BOTH BREAST On: 06-Mar-2015 Intent (19077)By: Jaimee Jarrett DO CT - Brain/HeadBy: Jaimee Jarrett DO On: 27-Oct-2013 Intent Comments: with and without contrast Eprescribed prescriptions (G8553)By: On: 27-Oct-2013 Intent Jaimee Jarrett DO EKG (62171)By: Jaimee Jarrett DO On: 03-Jul-2013 Intent Comments: ekg showed normal sinus rhythym, normal axis, no acute st/t wave changes hr 99 MAMMOGRAM, SCREENING, BOTH BREASTS On: 03-Jul-2013 Intent (62031)By: Jaimee Jarrett DO Eprescribed prescriptions (G8553)By: On: 03-Jul-2013 Intent Elvira Valencia Ultrasound - GallbladderBy: Santos On: 15-Mar-2013 Intent Giulia SCHREIBER CANDIE Giulia Courtney Ultrasound - RenalBy: Santos SCHREIBER, On: 08-Jul-2012 Intent Giulia Muñiz CNP Comments: schedule in November Ultrasound - RenalBy: Santos SCHREIBER, On: 27-May-2012 Intent Giulia Muñiz CNP EKG (77525)By: Giulia Graham CNP On: 13-Apr-2012 Intent Giulia Graham CNP Instructions Name Dates Details Nonsmoker : How to access health information online Indication: Nonsmoker Nonsmoker : How to access health information online - Detail Indication: Nonsmoker Nonsmoker : Patient Instructions Indication: Nonsmoker BMI 29.0-29.9,adult : Patient Instructions Indication: BMI 29.0-29.9,adult Encounter for gynecological examination without abnormal finding : How to access health information online Indication: Encounter for gynecological examination without abnormal finding Encounter for gynecological examination without abnormal finding : How to access health information online - Detail Indication: Encounter for gynecological examination without abnormal finding Encounter for gynecological examination without abnormal finding : Patient Instructions Indication: Encounter for gynecological examination without abnormal finding Hypertension, benign : How to access health information online Indication: Hypertension, benign Hypertension, benign : How to access health information online - Detail Indication: Hypertension, benign Hypertension, benign : Patient Instructions Indication: Hypertension, benign Vitamin D deficiency : DISCONTINUED - Vitamin D Hydroxy (56970) Indication: Vitamin D deficiency Hypertension, benign : DISCONTINUED - METABOLIC PANEL, COMPREHENSIVE (17129) Indication: Hypertension, benign UTI symptoms : How to access health information online Indication: UTI symptoms UTI symptoms : How to access health information online - Detail Indication: UTI symptoms UTI symptoms : Patient Instructions Indication: UTI symptoms Neck pain on left side : How to access health information online Indication: Neck pain on left side Neck pain on left side : How to access health information online - Detail Indication: Neck pain on left side Neck pain on left side : Patient Instructions Indication: Neck pain on left side Encounter for pre-employment examination : How to access health information online Indication: Encounter for pre-employment examination Encounter for pre-employment examination : How to access health information online - Detail Indication: Encounter for pre-employment examination Encounter for pre-employment examination : Patient Instructions Indication: Encounter for pre-employment examination Other abnormal finding of urine : Patient Instructions Indication: Other abnormal finding of urine Hypertension, benign : How to access health information online Indication: Hypertension, benign Hypertension, benign : How to access health information online - Detail Indication: Hypertension, benign Hypertension, benign : Patient Instructions Indication: Hypertension, benign Hypertension, benign : Patient Instructions Indication: Hypertension, benign Hypertension, benign : Patient Instructions Indication: Hypertension, benign Hypoalbuminemia : Patient Instructions Indication: Hypoalbuminemia Encounters Annotation/Addendum On: 02-May-2018 6:31 Encounter Diagnosis: Secondary hyperparathyroidism End: 02-May-2018 6:41 [facility] Visit On: 15-Apr-2018 14:07 Encounter Reason: Follow up tests - Diagnostic tests include other (labs). Date: (04/12/18). Note for Discuss procedure results: Has had elevated ipth, feels tired alotpt is yawning non stopEncounter Diagnosis: Nonsmoker, BMI 30.0-30.9,adult, End: 15-Apr-2018 15:06 Elevated parathyroid hormone, Vitamin D deficiency [facility] Office Visit On: 03-Feb-2018 9:06 Encounter Reason: Well Women Exam - The patient feels well with no complaints, has good energy level and is sleeping well. Pap smear: date of last pap:. Contraceptive history: The patient is not using any method of contr End: 03-Feb-2018 12:14 aception at this time. Patient does not exercise. The patient reports that she does not perform monthly breast self exam. Menstruation: Last menstrual period date: (01/11/18)., [ADDITIONAL REASON] Follow up tests - Diagnostic tests include other (labs). Encounter Diagnosis: Encounter for gynecological examination without abnormal finding, Nonsmoker, BMI 29.0-29.9,adult, Elevated parathyroid hormone [facility] Visit On: 21-Jan-2018 10:14 Encounter Reason: Physical female exam - Last seen between 6-12 months ago. General health: feels well with no complaints, has decreased energy level and is sleeping well. The patient's appetite is normal. Nutrition: nor End: 21-Jan-2018 11:35 mal/adequate. Exercises 0 days per week. Sleeps on average 6 hours per night. Normal bowel and bladder habits. Safety measures include appropriate use of safety belts and home smoke detectors. There are no current emotional problems. screening, colonoscopy (08/2017), screening, mammography (DUE) and screening, Pap smear (DUE). Note for Physical exam: Employee physical, [ADDITIONAL REASON] Follow up tests - Diagnostic tests include other (labs). Encounter Diagnosis: Hypertension, benign, Nonsmoker, BMI 28.0-28.9,adult, Hypophosphatemia, Encounter for routine adult medical exam with abnormal findings [facility] Visit On: 01-Mar-2017 12:50 Encounter Reason: UTI - The urinary symptoms are described as painful urination, frequency and burning., [ADDITIONAL REASON] Physical female exam - Note for Physical exam: Employee physical Encounter Diagnosis: UTI symptoms, BMI 30.0-30.9,adult, End: 01-Mar-2017 14:49 Nonsmoker, Hypertension, benign, Vitamin D deficiency, Encounter for routine adult medical exam with abnormal findings, Encounter for screening mammogram for breast cancer (Renamed from Encounter for screening mammogram f or malignant neoplasm of breast), Encounter for screening for malignant neoplasm of colon (Renamed from Special screening for malignant neoplasms, colon) [facility] Visit On: 08-Dec-2016 14:42 Encounter Reason: Neck Pain - This condition occurred without any known injury. Symptoms include neck pain, tenderness and shoulder pain. Symptoms are located in the left posterior neck, left anterior neck and left later End: 08-Dec-2016 16:09 al neck. The pain radiates to the left trapezius, left shoulder, left arm, left upper arm and left forearm. The patient describes the pain as aching, stinging and throbbing. Onset was 3 month(s) ago. Th e symptoms occur constantly. The patient describes symptoms as worsening. Symptoms are exacerbated by turning the head to the right. Associated symptoms include upper extremity weakness. Previous presen tation included neck pain, shoulder pain and arm pain.Encounter Diagnosis: Nonsmoker, BMI 30.0-30.9,adult, Neck pain on left side, Muscle spasms of neck, Cervical radiculopathy, acute [facility] Visit On: 03-Mar-2016 14:08 Encounter Reason: Physical female exam - General health: feels well with no complaints, has good energy level and is sleeping well. The patient's appetite is normal. Nutrition: eating a variety of foods. Exercises 0 ( a End: 03-Mar-2016 14:45 ctive at work ) days per week. Sleeps on average 6 hours per night. Normal bowel and bladder habits. Safety measures include appropriate use of safety belts and home smoke detectors. There are no curre nt emotional problems. screening, mammography (2013), screening, Pap smear (2009) and TB skin testing (2011). Note for Physical exam: was spotting day of urine- she was gong to have colosncoopy done b ut they were charging her 400 up front - so she didnt go and no urinary sxEncounter Diagnosis: Hypertension, benign, Nonsmoker, Encounter for routine adult medical exam with abnormal findings, Screening for osteoporosis (Renamed from Encounter for screening for osteoporosis), Encounter for screening for malignant neoplasm of colon (Renamed from Special screening for malignant neoplasms, colon), Encounter for screening mammogram for breast cancer (Renamed from Encounter for screening mammogram for malignant neoplasm of breast) [facility] Visit On: 06-Mar-2015 9:52 Encounter Reason: Physical female exam - General health: feels well with no complaints, has good energy level and is sleeping well. The patient's appetite is normal. Nutrition: eating a variety of foods. Exercises 0 ( a End: 06-Mar-2015 10:37 ctive at work ) days per week. Sleeps on average 6 hours per night. Normal bowel and bladder habits. Safety measures include appropriate use of safety belts and home smoke detectors. There are no curre nt emotional problems. screening, mammography (09/2013), screening, Pap smear (2009) and TB skin testing (2011). Note for Physical exam: was spotting day of urine- she was gong to have colosncoopy done but they were charging her 400 up front - so she didnt go and no urinary sx, [ADDITIONAL REASON] Follow up tests - Diagnostic tests include other (labs). Date: (02/26/15). Encounter Diagnosis: HYPERTENSION (401.1), Work Physical (V70.5), screening , Abnormal Urine (791.9) [facility] Visit On: 30-Mar-2014 9:21 Encounter Reason: Follow up tests - Diagnostic tests include other (labs). Date: (03/21/14). Note for Discuss procedure results: no uti sx- sx and trying to take in more potassium- still havign periods- - mammo up ??to d End: 30-Mar-2014 9:59 ate and willing now to do colosncoopy screening - bp is good and weight coming down- and exercisnng by walking at work- she will try to add more in - migraines only around cycle Encounter Diagnosis: Abnormal Urine (791.9), Hypokalemia (Renamed from Decreased potassium in the blood), screening , Vitamin D deficiency, HYPERTENSION (401.1) [facility] Visit On: 02-Feb-2014 8:38 Encounter Reason: Follow up for chronic medical issues - The patient feels well with no complaints, has good energy level and is sleeping well. Patient has been compliant with instructions. Current medication use: no jessica End: 02-Feb-2014 9:12 e effects, compliant with dosing regimen and considered effective by patient. Patient sleeps 6 hours per night. The medical issues the patient is following up for include All identified problems below, high blood pressure and other (migraine ). Note for Follow up for chronic medical issues: No routine labs done for todays visit. Couldnt tolerate the topamax so not taking it.- she got signficant dizz iness on topamax so didnt stay on it- she doesnt want to try alternative for headaches she doesnt feel that bad at this pointEncounter Diagnosis: HYPERTENSION (401.1), Headache,Migraine (346.00), Vitamin D deficiency, Parathyroid abnormality, Hypocalcemia (275.41), Elevated bilirubin (782.4), Hypoalbuminemia (273.8) [facility] Phone Encounter On: 15-Dec-2013 12:54 Encounter Diagnosis: Vitamin D deficiency End: 15-Dec-2013 13:12 [facility] Visit On: 27-Oct-2013 13:23 Encounter Reason: Follow up for chronic medical issues - The patient feels well with no complaints, has good energy level and is sleeping well. Patient has been compliant with instructions. Current medication use: no jessica End: 29-Oct-2013 22:21 e effects, compliant with dosing regimen and considered effective by patient. Patient sleeps 6 hours per night. The medical issues the patient is following up for include All identified problems below, high blood pressure and other (migraine ). Note for Follow up for chronic medical issues: her bp ok today- she has migraines mnthly - never had head ct- she takes excedrin for migraine- , [ADDITIONAL REASON] Follow up tests - Diagnostic tests include other (labs). Date: (12/20/14). Encounter Diagnosis: HYPERTENSION (401.1), Headache,Migraine (346.00), Parathyroid abnormality [facility] Visit On: 03-Jul-2013 16:18 Encounter Reason: Follow up for chronic medical issues - The patient feels well with no complaints, has good energy level and is sleeping well. Patient has been compliant with instructions. Current medication use: no jessica End: 03-Jul-2013 21:45 e effects, compliant with dosing regimen and considered effective by patient. Patient sleeps 6 hours per night. The medical issues the patient is following up for include All identified problems below, high blood pressure and other (migraine ). Note for Follow up for chronic medical issues: No routine labs done for todays visit.- her bp is good -she will get dizy with quick change in position - her migraines are better - no excess caffeine no feel palpitaiotns no decongEncounter Diagnosis: HYPERTENSION (401.1), screening , Hypocalcemia (275.41), Headache,Migraine (346.00), screening , Tachycardia (785.0) [facility] Visit On: 29-Mar-2013 8:52 Encounter Reason: Follow up tests - Diagnostic tests include ultrasound (gallbladder). Date: (03/23/13). Follow up visit with no current symptoms.Encounter Diagnosis: Abdominal complaints (789.9), HYPERTENSION (401.1), Hypocalcemia (275.41), End: 29-Mar-2013 9:26 Hypoalbuminemia (273.8) [facility] Visit On: 15-Mar-2013 9:02 Encounter Reason: Physical female exam - General health: feels well with no complaints, has good energy level and is sleeping well. The patient's appetite is normal. Nutrition: eating a variety of foods. Exercises 0 ( a End: 15-Mar-2013 10:12 ctive at work ) days per week. Sleeps on average 6 hours per night. Normal bowel and bladder habits. Safety measures include appropriate use of safety belts and home smoke detectors. There are no curre nt emotional problems. screening, mammography (2009), screening, Pap smear (Dr moncada- 2009) and TB skin testing (2011). Note for Physical exam: labs from 03-09 reviewed from hospital had history of abd pain diarrhea Encounter Diagnosis: Abdominal complaints (789.9), Work Physical (V70.5), Elevated bilirubin (782.4) [facility] Visit On: 09-Jan-2013 15:44 Encounter Reason: Follow up for chronic medical issues - The patient feels well with no complaints and has good energy level. Patient has been compliant with instructions. Current medication use: no side effects, complia End: 09-Jan-2013 16:21 nt with dosing regimen and considered effective by patient. Patient sleeps 6 hours per night. The medical issues the patient is following up for include All identified problems below, high blood pressure and other (migraine ).Encounter Diagnosis: HYPERTENSION (401.1), Family history of diabetes mellitus (DM) (V18.0), MIGRAINE NEC W/ MIGRAINE W/O STAT MIGRAINOSUS (346.81) [facility] Visit On: 30-Sep-2012 9:44 Encounter Reason: Follow up for chronic medical issues - The patient feels well with no complaints, has good energy level and is sleeping well. Patient has been compliant with instructions. Current medication use: no jessica End: 30-Sep-2012 10:08 e effects, compliant with dosing regimen and considered effective by patient. Patient sleeps 7 hours per night. Nutrition: balanced diet. The medical issues the patient is following up for include All i dentified problems below and high blood pressure. blood pressure range : (106/69 112/77, 116/80, 118/82).Encounter Diagnosis: HYPERTENSION (401.1) [facility] Visit On: 08-Jul-2012 9:28 Encounter Reason: Follow up tests - Diagnostic tests include other (labs) and ultrasound (kidney). Date: (06/03/12). Current symptoms include other (fatigue). There is no family history of breast cancer, cardiovascular d End: 08-Jul-2012 10:19 isease, cystic fibrosis, Down's syndrome, mental retardation or myocardial infarction before age 55. Past medical history includes hypertension.Encounter Diagnosis: Abnormal Renal Ultrasound (793.5), HYPERTENSION (401.1) [facility] Visit On: 27-May-2012 9:26 Encounter Reason: Follow up Hypertension - The symptoms have been associated with family history of hypertension, while the symptoms have not been associated with excessive caffeine intake, obesity, sleep apnea symptoms End: 27-May-2012 10:08 or use of nasal decongestants. blood pressure range : (124/86, 120/81, 106/62, 118/90, 118/79, 120/81).Encounter Diagnosis: HYPERTENSION (401.1) [facility] Visit On: 29-Apr-2012 10:01 Encounter Reason: Follow up tests - Diagnostic tests include other (labs). Date: (04/19/12). Follow up visit with no current symptoms. Past medical history includes hypertension. Note for Follow up tests: only had a lit End: 29-Apr-2012 10:31 tle headache when started period , [ADDITIONAL REASON] Follow up Hypertension - blood pressure range : (130/94, 122/87, 114/73, 99/59, 99/67). Note for Follow up Hypertension: BP log showing low BPSome dizziness when stooping down to pick somehting up Encounter Diagnosis: HYPERTENSION (401.1), MIGRAINE NEC W/ MIGRAINE W/O STAT MIGRAINOSUS (346.81) [facility] Visit On: 15-Apr-2012 10:33 Encounter Reason: Physical female exam - General health: feels well with no complaints, has good energy level and is sleeping well. The patient's appetite is normal. Nutrition: eating a variety of foods. Sleeps on averag End: 15-Apr-2012 16:30 e 7 hours per night. Normal bowel and bladder habits. Safety measures include appropriate use of safety belts and home smoke detectors. There are no current emotional problems.Encounter Diagnosis: Work Physical (V70.5) [facility] Visit On: 13-Apr-2012 15:21 Encounter Reason: Hypertension - The symptoms have been associated with family history of hypertension (mother), while the symptoms have not been associated with obesity, sleep apnea symptoms, use of oral contraceptives End: 13-Apr-2012 16:35 or use of steroids. blood pressure range : (137/93, 134/98). 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
--- OUTSIDE RECORDS SUMMARY | 2018-08-16 20:24 | XMS RPT_ITS | Continuity of Care Document ---
:1960 Author Organization [facility] Address [address] [place] [address] Phone Care Team Providers Name Role Phone Santos CANDIEGiulia E Unavailable Roderick BRICEÑO, Shubham Ya Unavailable [facility] Unavailable Narendra BRICEÑO, Ranjit Guerrero Unavailable Dr. [...] 0 days Quantity: 45 {Capsule} Refills: 0 Ordered:24-May-2018 Santos SCHREIBER, Giulia Pires CNP, Giulia Courtney Start : 24-May-2018 Active Losartan Potassium 25 MG Oral Tablet 1 Tablet daily for 0 days Quantity: 90 {Tablet} Refills: 1 Ordered:21-Jan-2018 Santos SCHREIBER, Giulia Pires CNP, Giulia Courtney Start : 21-Jan-2018 Active Vitamin D 2000 UNIT Oral Tablet 3 (three) Tablet daily x 8 weeks for 0 days Quantity: 30 {Tablet} Refills: 0 Ordered:06-May-2018 Santos SCHREIBER, Giulia Pires CNP, Giulia Courtney Start : 06-May-2018 Active Cyclobenzaprine HCl 5 MG Oral Tablet [...] 30-Oct-2013 End : 02-Feb-2014 Discontinued Vitamin D3 59774 UNIT Oral Capsule 2 (two) Capsule Capsule [...] Parathyroid Scan Result: Comments: See Note; NOTES: [facility] Imaging Services [address] [place] [address] Parathyroid Scan MR#: [id number] Acct: [id number] Name: JENARO MAHMOOD Rep #: [id number] OB: 1960 F 57 From: Tobias Nunez DO PCP: Giulia Graham NP Status: REG CLI Study: Parathyroid Scan Date of Exam: 04/29/18 Exam# [id number] Ordering Dr: Giulia Graham CHILDREN'S TUTOR-C CLINICAL: 57-year-old female with history of elevation [...] Service support , CC: Giulia Graham NP Metal Fabricating Inspector: Signed 28-Jun-2017 Operative Report Result: Comments: See Note; NOTES: [facility] Medical Records Department [address] [place] [address] Operative Report 06/28/17 0822 MR#: [id number] Acct: [id number] Name: CHALO MAHMOOD Rep #: [id number] : 1960 56 From: Shubham Paredes MD PCP: Giulia Graham NP Status: REG CLI Y Location: EN Problem List (1) Screen for colon cancer Status: Acute Report of Operation Date of Procedure: 06/28/17 Pre-Operative Diagnosis: Screening colonoscopy Post-Operative Diagnosis: Same Surgery/Procedure Performed:: 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: None Type of Anesthesia:: MAC Anesthesiologist: Joselito [...] ordered:: Treatment Not Indicated Code Visit 40xxx-49xxx: 16456 Diagnostic colonoscopy 06/28/17825 <Electronically signed by Shubham carranza MD> Date Shubham Paredes MD CC: Giulia Graham NP; santos greene; Shubham Paredes MD Signed 28-Jun-2017 History and Physical Exam Result: Comments: See Note; NOTES: [facility] Medical Records Department [address] [place] [address] History and Physical 06/28/17818 MR#: [id number] Acct: [id number] Name: Ashley MAHMOOD Rep #: [id number] : 1960 56 From: Shubham Paredes MD PCP: Giulia Graham NP Status: REG CLI Y Location: EN Problem List (1) Screen for colon cancer Status: Acute History of Present Illne ss Date of Admission: 06/28/17 The patient is a 56 year old F who presents for a screening colonoscopy. Past Medical History Allergies No Known Allergies Allergy (Verified 06/28/17 07:10) OPERATIONS COORDINATOR Hist ory: - - Patient has had [...] signed by Shubham Paredes MD> Date Shubham hodge Signature: Date (if applicable) CC: Giulia Graham CHILDREN'S TUTOR; Shubham Paredes MD Signed 08-Dec-2016 Cerv Spine 4 or 5 Views Result: Comments: See Note; NOTES: [facility] Imaging Services [facility] [place] [address] Verdana 4d Cerv Spine 4 or 5 Views MR#: [id number] Acct: [id number] Name: JENARO MAHMOOD Rep #: [id number] : 1960 F 56 From: Sarah Flor MD PCP: Giulia Graham Status: REG CLI Study: Cerv Spine 4 or 5 Views Date of Exam: 12/08/16 Exam# [id number] Ordering Dr: Vianey De La Garza Y: [...] , Serv ice support , CC: Vianey Graham Metal Fabricating Inspector: Signed 16-Nov-2013 Brain/Head W/WO Contrast Result: Comments: See Note; NOTES: [facility] Imaging Services [address] [place] [address] CAT Scan Report MR#: [id number] Acct: [id number] Name: JENARO MAHMOOD Rep #: [id number] : 1960 F 53 From: Ashley Stover MD PCP: Jaimee Jarrett DO Status: REG CLI Study: Brain/Head W/WO Contrast Date of Exam: 11/16/13 Exam# [id number] Ordering Dr: Jaimee Jarrett DO STUDY: CT [...] MD at 13:39 EDT , Service support [phone], CC: Jaimee Jarrett DO Metal Fabricating Inspector: Signed 13-Oct-2013 Bilat Scrn Digital & CAD Result: Comments: See Note; NOTES: [facility] Imaging Services [address] [place] [address] Breast Imaging Report MR#: [id number] Acct: [id number] Name: JENARO MAHMOOD Barbara Rep #: [id number] : 1960 F 53 From: Leo Guardado MD PCP: Jaimee Jarrett DO Status: REG CLI Exam# [id number] Ordering Dr: Jaimee Jarrett DO MAMMOGRAPHY - [...] M.D. at 7:50 EDT , Service support [phone], CC: Jaimee Jarrett DO Metal Fabricating Inspector: Signed Social History Name Dates Details No Caffeine Use Status: Active No Drug Use Status: Active Non Drinker/No Alcohol Use Status: Active Non Smoker/No Tobacco Use Status: Active Vital Signs Date Test Result Details 81-Ckf-660812:33 Temperature 98 f Comments: Method: Temporal Pulse 92 /min Comments: Pattern: Regular Respiration Rate 17 [...] kg/m2 Body Surface Area Calculated 1.89 m2 :08 Temperature 98.5 f Comments: Method: Temporal Pulse [...] kg/m2 Body Surface Area Calculated 1.87 m2 :42 Temperature 97 f Pulse 94 /min Comments: [...] kg/m2 Body Surface Area Calculated 1.89 m2 :50 Temperature 98.2 f Comments: Method: Oral Pulse [...] 1.91 m2 Results Date Description Value Details :56 Phosphorus Comments: [facility] [address] [facility] [address] [place], [place], [id number] PHOS 3.4 mg/dL (Normal) Range: 2.5-4.9 :56 PTHIN 101.7 pg/mL (Abnormal) Comments: [facility] [address] [facility] [place], [address] Range: 18.4-80.1 :56 Vitamin D,25 Hydroxy Comments: [facility] [address] [place], [address] Vitamin D 25-OH 24.8 ng/mL (Abnormal) Range: 29.95-100.01 Comments: Vitamin D 25(OH) Status Range Deficiency <20 ng/mL (50nmol/L) Insuffciency 20 - 30 ng/mL (50 - 75 nmol/L) Sufficiency 30 - 100 ng/mL (75 - 250 nmol/L) Toxicity >100 ng/mL (>250 nmol/L) 60-Fzm-395417:20 HPV, Reflex Comments: Source.............Cervix;EndocervixNo. of containers..01 ThinPrep VialPATIENT NOT FASTINGPERFORMED BY: [facility] [address] [place] [id number] Information: [id number] ([id number]) Note: PAPSMR (Normal) Comments: The Pap smear [...] and/or squamous metaplasticcells (endocervical component) are present.Z01.419Sam Fidel Cytot echnologist (ASCP) 24-Jan-20186:43 PTHIN 93.6 pg/mL (Abnormal) Comments: [facility] [address] [place], [place], [address] Range: 18.4-80.1 24-Jan-20186:43 Vitamin D,25 Hydroxy Comments: [facility] [address] [place], [place], [address] Vitamin D 25-OH 30.0 ng/mL (Normal) Range: 29.95-100.01 Comments: Vitamin D 25(OH) Status Range Deficiency <20 ng/mL (50nmol/L) Insuffciency 20 - 30 ng/mL (50 - 75 nmol/L) Sufficiency 30 - 100 ng/mL (75 - 250 nmol/L) Toxicity >100 ng/mL (>250 nmol/L) 93-Ciq-55364:34 CBC, Employee Comments: [facility] [address] [place], [place], [address] Absolute Lymph 1.47 {X10_3/ul} (Normal) Range: 0.83-4.51 [...] 4.2-5.4 WBC 5.4 K/mm3 (Normal) Range: 4.4-11.0 59-Ytk-58736:34 Employee Profile Comments: [facility] [address] [place], [place], [address] LDH 184 U/L (Normal) Range: 84-246 VLDL [...] Comments: Please note revised GLUCOSE reference range jrumxdqak73/02/2018. 82-Yed-09695:34 Nicotine Urine Drug Screen Comments: [facility] [address] [place], [place], [address] COT DRG SCREEN Negative (Normal) Comments: Cotinine [...] results are used. :34 Urinalysis, Employee Comments: [facility] [address] [place], [place], [address] LEUK ESTERASE Negative /ul (Normal) OCCULT BLOOD-UR 25 /ul (Abnormal) NITRITE UR Negative (Normal) UROBILI Normal mg/dL (Normal) PROT DIPSTX Negative mg/dL (Normal) pH UR 6.0 (Normal) Range: 5.0 - 8.0 SP.GR. DIPSTX 1.015 (Normal) Range: 1.002-1.030 KETONE UR Negative mg/dL (Normal) BILIRUBIN URINE Negative mg/dL (Normal) GLUCOSE, UR Normal mg/dL (Normal) CLARITY Clear (Normal) COLOR Yellow (Normal) 76-Fmp-778961:26 URINE FREYA CULTURE-CHRISTEN COL Comments: PATIENT NOT FASTINGPERFORMED BY: [facility] Center[facility]vqxha2497 [facility] [id number] Information: SRC:UC COUNT (50145) Result 1 MUG (Normal) Comments: Mixed urogenital flora10,000-25,000 colony forming units per mL Urine Final report (Normal) Culture,Comprehensive 04-Twe-977595:52 Urinalysis, Office (51005) UA - LEUKOCYTE ESTERASE Negative (Normal) UA - NITRITE Negative (Normal) URINE UROBILINGN CHRISTEN TIMED Normal mg/dL (Normal) UA - PROTEIN Negative mg/dL (Normal) UA - PH 6 (Abnormal) UA - BLOOD Hemolyzed Trace (Normal) UA - SPECIFIC GRAVITY 1.005 (Normal) UA - KETONES Negative mg/dL (Normal) UA - BILIRUBIN Negative (Normal) UA - GLUCOSE Negative (Normal) :18 CBC, Employee Comments: [facility] [address] [place], [place], [address] Absolute Lymph 1.73 {X10_3/ul} (Normal) Range: 0.83-4.51 [...] 4.2-5.4 WBC 6.8 K/mm3 (Normal) Range: 4.4-11.0 :18 Employee Profile Comments: [facility] [address] [place], [place], [address] LDH 170 U/L (Normal) Range: 84-246 VLDL [...] 70-110 :18 Nicotine Urine Drug Screen Comments: [facility] [address] [place], [place], [address] COT DRG SCREEN Negative (Normal) Comments: Cotinine [...] results are used. :18 Urinalysis, Employee Comments: [facility] [address] [place], [address] LEUK ESTERASE 25 /ul (Abnormal) [...] COLOR Yellow (Normal) :46 CBC, Employee Comments: [facility] [address] [place], [place], [address] Absolute Lymph 1.85 {X10_3/ul} (Normal) Range: 0.83-4.51 [...] (Normal) Range: 4.4-11.0 :46 Employee Profile Comments: [facility] [address] [place], [place], [address] LDH 188 U/L (Normal) Range: 84-246 VLDL [...] 70-110 :46 Nicotine Urine Drug Screen Comments: [facility] [address] [place], [place], [address] COT DRG SCREEN Negative (Normal) Comments: Cotinine [...] Urinalysis, Employee Comments: How was Urine Obtained? CLEAN [facility] [address] [place], [address] LEUK ESTERASE 25 /ul (Abnormal) [...] CLARITY Sl. Cloudy (Normal) COLOR Yellow (Normal) :16 CBC, Employee Comments: Test performed at:[facility] [address] [facility] [address] [place], [place] [id number] ; fu 8-19 Absolute Lymph 1.68 {X10_3/ul} [...] 4.2-5.4 WBC 7.0 K/mm3 (Normal) Range: 4.4-11.0 01-Eju-45033:16 Employee Profile Comments: Test performed at:[facility] [address] [place] [address] LDH 203 U/L (Normal) Range: [...] Comments: Please note revised CREATININE reference range lqrjqimrd09/22/2015. BUN 18 mg/dL (Normal) Range: 7-18 GLU 95 mg/dL (Normal) Range: 70-110 47-Sho-64591:16 Urinalysis, Employee Comments: Test performed at:[facility] [address] [place] [address] LEUK ESTERASE 25 /ul (Abnormal) [...] 4.2-5.4 WBC 6.2 K/mm3 (Normal) Range: 4.4-11.0 21-Mar-20147:00 CMP GAP 8 (Normal) Range: 5-15 CO2 [...] 7-18 GLU 96 mg/dL (Normal) Range: 70-110 21-Mar-20147:00 EMP LDH 186 U/L (Normal) Range: 87-241 [...] CHOL 180 mg/dL (Normal) Comments: <200 mg/dL Qupsvuxhr051-897 mg/dL Borderline>240 mg/dL High Risk BID 0.23 [...] - 250 nmol/L)Toxicity >100 ng/mL (>250 nmol/L) 85-Bdi-243080:13 Vitamin D Hydroxy (49401) Comments: PATIENT NOT FASTINGPERFORMED BY: [facility] CenterDhtogj7514 [facility] [id number] Vitamin D, 25-Hydroxy 22.5 ng/mL (Abnormal) Range: 30.0-100.0 Comments: Vitamin D deficiency has been defined by the [place] ofMedicine and an Endocrine Society practice guideline as alevel of serum 25-OH vitamin D less than 20 ng/mL (1,2).The Endocrine Society went on to further define vitamin Dinsufficiency as a level between 21 and 29 ng/mL (2).1. IOM ([place] of Medicine). 2010. Dietary reference intakes for calcium and D. [place]: The National Academies Press.2. Emily MF, Peggy BATISTA, Cisco PACHECO, et al. Evaluation, treatment, and prevention of vitamin D deficiency: an Endocrine Society clinical practice guideline. JCEM. 2010; 96(7):1911-30. :13 PHOSPHORUS (62566) Comments: PATIENT NOT FASTINGPERFORMED BY: [facility] Btetts[address] [facility]lifeCritical Access Hospitalin [place] [id number] Phosphorus, Serum 3.2 mg/dL (Normal) Range: 2.5-4.5 :13 PARATHORMONE (14965) Comments: PATIENT NOT FASTINGPERFORMED BY: [facility] [address] [facility] Clinicbookblin [place] [id number] PTH, Intact 36 pg/mL (Normal) Range: 15-65 :13 METABOLIC PANEL, Comments: PATIENT NOT FASTINGPERFORMED BY: [facility] [address] StreetlifeCritical Access Hospitalin [place] [id number] Information: [id number] COMPREHENSIVE (43216) ALT (SGPT) 20 [iU]/L (Normal) Range: 0-32 [...] CHOL 195 mg/dL (Normal) Comments: <200 mg/dL Wfdvprshg042-320 mg/dL Borderline>240 mg/dL High Risk :06 MIACRE [...] size of the right kidney. The right rvoycqxzukrbxh62.1 cm. Nor mal renal cortex. The right cortex measures 1.4 cm. Thereisno demonstrated renal mass or cyst. There is no right hydronephrosis. IMPRESSION:Small hepatic cysts. Sig beatriz:Leo Pedicelli, M.D.March 23, 2013 at 10:17:49 AM [id number] Signed GP/GP If you are the referring physician and would like to consult with theradiologist who provided this interpretation, please contact Jose M Pichardo at [phone]. If this radiologist is unavailable, youwill be directed to another radiologist to assist. If you are a patient with a question re garding this report, pleasecontactyour referring physician directly. Professional Interpretation Provided By: [employer]), Phone , These documents contain legally protected [...] destructionofthese documents. Dictated on 03/23/13 1017 by Sarika Guardado MDranscribed on 03/23/13 1019 by ITS IMPORTSign by Leo Guardado MD on 03/23/13 1020 Sign by: _ Leo Guardado MD 29-Au BID 0.18 mg/dL Range: 0.00-0.30 g-201 (Normal) 315:4 9 29-Au BIT 1.10 mg/dL Range: 0.00-1.00 g-201 (Abnormal) 315:4 9 95-Xrw-53740:19 Urinalysis, Office (42459) UA - BILIRUBIN Negative (Normal) UA - BLOOD Non Hemolyzed Trace (Normal) UA - GLUCOSE Negative (Normal) UA - KETONES Negative mg/dL (Normal) UA - LEUKOCYTE ESTERASE Negative (Normal) UA - NITRITE Negative (Normal) UA - PH 6.0 (Normal) UA - PROTEIN Negative mg/dL (Normal) UA - SPECIFIC GRAVITY 1.020 (Normal) URINE UROBILINGN CHRISTEN TIMED Normal mg/dL (Normal) 40-Hvp-257775:57 HgA1C , Office (46057) Comments: 5.4 HgA1C , Office 5.4 % (Normal) Range: 4.6 - 7.1 :57 Blood Glucose , Office (71282) Comments: 75 Blood Glucose , 75 (Normal) Office MISC (Normal) Comments: VMA, Random Urine RESULTS LIMITSVMA, Random Urine 6.6 mg/L UndefinedVMA/Waterworks Pump Station Operator, Random U 3.6 mg/g Creat 0.0-6.0 CHRISTEN :40 TING PERFORMED AT [facility]. ORIGINAL REPORT ON FILE IN LAB CONTAINS ADDITIONAL TEST SITE INFORMATION. MISC2 (Normal) Comments: Catecholamines, Ur., Free, Random RESULT LIMITSCreatinine, Random U 181.1 mg/dL 15.0-278.0Epinephrine, Urine 1 ug/L UndefinedEpinephrine :40 1 ug/g Creat 0-19Norepinephrine, Urine 52 ug/L UndefinedNorepinephrine 29 ug/g Creat 0-111Dopamine, Urine 409 ug/L UndefinedDopamine 226 ug/g Crea t 0-348 TESTING PERFORMED AT [facility]. ORIGINAL REPORT ON FILE IN LAB CONTAINS ADDITIONAL TEST SITE INFORMATION. MISC3 (Normal) Comments: Metanephrines, Pheochromocyt RESULT LIMITSNormetanephrine, Ur 369 ug/L UndefinedMetanephrine, Ur 147 ug/L UndefinedMetaneph/Creat Ratio 0.3 UG/ :40 MG Creat 0.0-1.0 TESTING PERFORMED AT [facility]. ORIGINAL REPORT ON FILE IN LAB CONTAINS ADDITIONAL TEST SITE INFORMATION. OTTO 6.56 {ng/mL/hr} Comments: Adult Normal Salt Intake: Upright 1.31 - 3.95 Supine 0.15 - 2. 5:51 (Normal) 33 . Salt Excretion (Na mEq/24 hr): Na= 0 - 30 8.82 - 23.86 Na= 30 - 75 4.09 - 7.73 Na= 75 - 150 1.44 - 2.80 Na= >150 0.39 - 1.31Performed at: [address] [id number] Director: Ariel Jung MD, Phone: [phone] 68-Yzz-046569:59 KIDNEY Radiology Report See Note (Normal) Comments: [...] Hanson M.D.June 02, 2012 at 4:09:04 PM [id number] Signed DL/DL If you are the referring physician and would like to consult with theradiologist who provided this i nterpretation, please contact Jose M Costello at [phone]. If this radiologist is unavailable, youwillbe directed to another radiologist to assist. If you are a patient with a question regarding this report, pleasecontactyour referring physician directly. Professional Interpretation Provided By: [employer] ([place]), Phone , These documents contain legally protected [...] Hanson MD on 06/02/12 1621 Sign by: Margie BRICEÑOJatinder CourtneyDeon :50 MIACRE tMICROCREAT 7.8 {mg/g_CRE} (Normal) MIALB 10.8 mg/L (Normal) CREU 136.8 mg/dL (Normal) :50 TSH 1.80 {uIU/mL} (Normal) Range: 0.358-3.74 :50 UAC UMUC 0 SEEN {/hpf} (Normal) UBAC RARE [...] Plan of Care Name Dates Details Instructions Encounter for screening mammogram for breast cancer (Renamed from Encounter for screening mammogram for malignant neoplasm of breast) : Follow up in 3 months Indication: Encounter for screening mammogram for breast cancer (Renamed from Encounter for screening mammogram for malignant neoplasm of breast) BMI 30.0-30.9,adult : Eprescribed prescriptions (G8553) Indication: BMI 30.0-30.9,adult BMI 30.0-30.9,adult : Follow up - Make [...] without abnormal finding : *Well Female Maintenance ([facility]) Indication: Encounter for gynecological examination without abnormal [...] Red Flags Indication: Hypertension, benign Planned Observations PARATHORMONE (92978)Indication: Secondary hyperparathyroidism On: 58-Bpj-701001:01 Request CALCIFEDIOL (42807)Indication: Secondary hyperparathyroidism On: 43-Vrk-250040:00 Request PHOSPHORUS (37386)Indication: Elevated parathyroid hormone On: 49-Uqo-02070:52 Request Comments: Mar 2018 PARATHORMONE (71887)Indication: Elevated parathyroid hormone On: 25-Kpr-18668:52 Request Comments: Mar 2018 CALCIFEDIOL (56067)Indication: Elevated parathyroid hormone On: 69-Ruc-67292:51 Request Comments: Mar 2018 Thin prep Pap (16392) (no STD testing)Indication: Encounter for gynecological examination without abnormal finding On: 58-Lmc-56718:08 Request CALCIFEDIOL (36229)Indication: Hypophosphatemia On: 7-Qik-946160:25 Request PARATHORMONE (41330)Indication: Hypophosphatemia On: 5-Rsk-402088:24 Request URINALYSIS, W/ MICRO (98009)Indication: Other abnormal finding of urine On: 99-Hax-922977:33 Request URINE FREYA CULTURE (CHRISTEN COL COUNT) (68574)Indication: Other abnormal finding of urine On: 33-Dtq-100015:33 Request Potassium Serum (59957)Indication: Hypokalemia (Renamed from Decreased potassium in the blood) On: :49 Request URINE FREYA CULTURE (CHRISTEN COL COUNT) (57886)Indication: Other abnormal finding of urine On: :49 Request URINALYSIS, W/ MICRO (99532)Indication: Other abnormal finding of urine On: :49 Request METABOLIC PANEL, COMPREHENSIVE (64735)Indication: Hypertension, benign On: 63-Wfw-78821:03 Request Vitamin D Hydroxy (35376)Indication: Vitamin D deficiency On: 41-Thf-80931:02 Request CALCIFEDIOL (93226)Indication: Vitamin D deficiency On: 29-Gkv-549666:55 Request T3, FREE (TRIDOTHYRONINE) (66182)Indication: Tachycardia On: 31-Kni-014354:12 Request T4, FREE (THYROXINE) (84320)Indication: Tachycardia On: 92-Yhd-799983:12 Request TSH (05843)Indication: Tachycardia On: 72-Nxl-568048:12 Request PARATHORMONE (94864)Indication: Hypocalcemia On: :49 Request LIPID PANEL (30429)Indication: Hypertension, benign On: :49 Request MICROALBUMIN: CREATININE RATIO (99915) AND (59824)Indication: Hypertension, benign On: :49 Request CBC WITH MANUAL DIFF (77364)Indication: Migraine with aura and without status migrainosus, not intractable On: :49 Request METABOLIC PANEL, COMPREHENSIVE (54546)Indication: Hypocalcemia On: 93-Fey-518522:49 Request Bilirubin, total (04202)Indication: Elevated bilirubin On: 52-Vuw-723112:08 Request Bilirubin, Direct (71627)Indication: Elevated bilirubin On: 66-Tug-709417:08 Request RENIN (95631)Indication: Hypertension, benign On: :54 Request METANEPHRINES - URINE (09811)Indication: Hypertension, benign On: :54 Request CATECHOLAMINES TOTAL, URINE (99125)Indication: Hypertension, benign On: :54 Request URINE VMA (30988)Indication: Hypertension, benign On: :54 Request TSH (72521)Indication: Hypertension, benign On: :02 Request URINALYSIS, W/ MICRO (75201)Indication: Hypertension, benign On: :02 Request MICROALBUMIN: CREATININE RATIO (31309) AND (96403)Indication: Hypertension, benign On: :02 Request MICROALBUMIN URINE QUANT (05279)Indication: Hypertension, benign On: :02 Request CREATININE, URINE (12073)Indication: Hypertension, benign On: :02 Request CBC WITH MANUAL DIFF (75193)Indication: Hypertension, benign On: 09-Bms-984829:02 Request Planned Procedures SCREENING DIGITAL TOMOSYNTHESIS OF On: 06-May-2018 Intent BREAST (60160)By: Giulia Graham CNP, CNP, Mary E PARATHYROID SCAN (21224)By: Santos On: 15-Apr-2018 Intent Giulia SCHREIBER CNP, Mary E Comments: to evaluate for parathyroid adenoma ELECTROCARDIOGRAM, COMPLETE (ECG) On: 21-Jan-2018 Intent (64811)By: Giulia Graham CNP, CNP, Mary E SCREENING DIGITAL TOMOSYNTHESIS OF On: 01-Mar-2017 Intent BREAST (21489)By: Giulia Graham CNP, CNP, Mary E PHYSICAL THERAPY (40498)By: Frederic On: 08-Dec-2016 Intent Vianey Comments: Dry Needle if needed. Radiology - Cervical SpineBy: On: 08-Dec-2016 Intent Vianey De La Garza MAMMOGRAM, SCREENING, BOTH BREAST On: 03-Mar-2016 Intent (71844)By: Giulia Graham CNP, CNP, Mary E DEXA SCAN AXIAL SKELETON (30278)By: On: 03-Mar-2016 Intent Giulia Graham CNP, CNP, Mary E MAMMOGRAM, SCREENING, BOTH BREAST On: 06-Mar-2015 Intent (84793)By: Jaimee Jarrett DO CT - Brain/HeadBy: Jaimee Jarrett DO On: 27-Oct-2013 Intent Comments: with and without contrast Eprescribed prescriptions (G8553)By: On: 27-Oct-2013 Intent Jaimee Jarrett DO EKG (96023)By: Jaimee Jarrett DO On: 03-Jul-2013 Intent Comments: ekg showed normal sinus rhythym, normal axis, no acute st/t wave changes hr 99 MAMMOGRAM, SCREENING, BOTH BREASTS On: 03-Jul-2013 Intent (58195)By: Jaimee Jarrett DO Eprescribed prescriptions (G8553)By: On: 03-Jul-2013 Intent Elvira Valencia Ultrasound - GallbladderBy: Santos On: 15-Mar-2013 Intent Giulia SCHREIBER CNP, Mary E Ultrasound - RenalBy: Santos SCHREIBER On: 08-Jul-2012 Intent Giulia Muñiz CNP Comments: schedule in November Ultrasound - RenalBy: Santos SCHREIBER, On: 27-May-2012 Intent Giulia Muñiz CNP EKG (72178)By: Giulia Graham CNP On: 13-Apr-2012 Intent Giulia Graham CNP Instructions Name Dates Details BMI 30.0-30.9,adult : How to access health information online Indication: BMI 30.0-30.9,adult BMI 30.0-30.9,adult : How to access health information online - Detail Indication: BMI 30.0-30.9,adult Nonsmoker : Patient Instructions Indication: Nonsmoker Nonsmoker : How to access [...] deficiency : DISCONTINUED - Vitamin D Hydroxy (52818) Indication: Vitamin D deficiency Hypertension, benign : DISCONTINUED - METABOLIC PANEL, COMPREHENSIVE (73988) Indication: Hypertension, benign UTI symptoms : How [...] Hypoalbuminemia : Patient Instructions Indication: Hypoalbuminemia Encounters Office Visit On: 06-May-2018 11:31 Encounter Reason: Follow up tests - Diagnostic tests include other (parathyroid scan). Note for Discuss procedure results: here to review lab results and sciemebie testEncounter Diagnosis: BMI 30.0-30.9,adult, Nonsmoker, End: 06-May-2018 12:05 Secondary hyperparathyroidism, Encounter for screening mammogram for breast cancer (Renamed from Encounter for screening mammogram for malignant neoplasm of breast) [facility] Annotation/Addendum On: 02-May-2018 6:31 Encounter Diagnosis: Secondary [...] - Diagnostic tests include other (labs). Date: (07/07/14). Encounter Diagnosis: HYPERTENSION (401.1), Headache,Migraine (346.00), Parathyroid [...] another 134/103 137/93 , then [facility] said ??137/98I get migraines all the time surrounding my period Encounter Diagnosis: HYPERTENSION (401.1), MIGRAINE NEC W/ MIGRAINE W/O STAT MIGRAINOSUS (346.81) [facility] [employer] [place] [employer] Shawn Mahmood; a guarantor
--- OUTSIDE RECORDS SUMMARY | 2018-08-16 20:24 | XMS RPT_ITS | Continuity of Care Document ---
:1960 Author Organization [facility] Address [address] [place] [address] Phone Care Team Providers Name Role Phone Santos CANDIEGiulia E Unavailable Roderick BRICEÑO, Shubham Ya Unavailable [facility] Unavailable Narendra BRICEÑO, Ranjit Guerrero [...] 30-Oct-2013 End : 02-Feb-2014 Discontinued Vitamin D3 95687 UNIT Oral Capsule 2 (two) Capsule Capsule [...] Parathyroid Scan Result: Comments: See Note; NOTES: [facility] Imaging Services [address] [place] [address] Parathyroid Scan MR#: [id number] Acct: [id number] Name: JENARO MAHMOOD Rep #: [id number] OB: 1960 F 57 From: Tobias Nunez DO PCP: Giulia Graham NP Status: REG CLI Study: Parathyroid Scan Date of Exam: 04/29/18 Exam# [id number] Ordering Dr: Giulia Graham CLINIC LEAD-C CLINICAL: 57-year-old female with history of elevation [...] Service support , CC: Giulia Graham NP [employer]: Signed 28-Jun-2017 Operative Report Result: Comments: See Note; NOTES: [facility] Medical Records Department [address] [place] [address] Operative Report 06/28/17 0822 MR#: [id number] Acct: [id number] Name: CHALO MAHMOOD Rep #: [id number] : 1960 56 From: Shubham Paredes MD PCP: Giulia Graham NP Status: REG CLI Y Location: EN Problem List (1) Screen for colon cancer Status: Acute Report of Operation Date of Procedure: 06/28/17 Pre-Operative Diagnosis: Screening colonoscopy Post-Operative Diagnosis: Same Surgery/Procedure Performed:: Colonoscopy robotics engineer: None Type of Anesthesia:: MAC Anesthesiologist: Joselito [...] ordered:: Treatment Not Indicated Code Visit 40xxx-49xxx: 98836 Diagnostic colonoscopy 06/28/17825 <Electronically signed by Shubham carranza MD> Date Shubham Paredes MD CC: Giulia Graham NP; santos greene; Shubham Paredes MD Signed 28-Jun-2017 History and Physical Exam Result: Comments: See Note; NOTES: [facility] Medical Records Department [address] [place] [address] History and Physical 06/28/17818 MR#: [id number] Acct: [id number] Name: Ashley MAHMOOD Rep #: [id number] : 1960 56 From: Shubham Paredes MD PCP: Giulia Graham NP Status: REG CLI Y Location: EN Problem List (1) Screen for colon cancer Status: Acute History of Present Illne ss Date of Admission: 06/28/17 The patient is a 56 year old F who presents for a screening colonoscopy. 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] Serv ice support , CC: Vianey Graham [employer]: Signed 16-Nov-2013 Brain/Head W/WO Contrast Result: Comments: See Note; NOTES: [facility] Imaging Services [address] [place] [address] CAT Scan Report MR#: [id number] Acct: [id number] Name: JENARO MAHMOOD Rep #: [id number] : 1960 F 53 From: Ashley Stover MD PCP: Jaimee Jarrett DO Status: REG CLI Study: Brain/Head W/WO Contrast Date of Exam: 11/16/13 Exam# [id number] Ordering Dr: Jaimee Jarrett DO STUDY: CT [...] MD at 13:39 EDT , Service support [phone], CC: Jaimee Jarrett DO [employer]: Signed 13-Oct-2013 Bilat Scrn Digital & CAD Result: Comments: See Note; NOTES: [facility] Imaging Services [address] [place] [address] Breast Imaging Report MR#: [id number] Acct: [id number] Name: JENARO MAHMOOD Barbara Rep #: [id number] : 1960 F 53 From: Leo Guardado MD PCP: Jaimee Jarrett DO Status: REG CLI Exam# [id number] Ordering Dr: Jaimee Jarrett DO MAMMOGRAPHY - [...] M.D. at 7:50 EDT , Service support [phone], CC: Jaimee Jarrett DO [employer]: Signed Social History Name Dates Details No Caffeine Use Status: Active No Drug Use Status: Active Non Drinker/No Alcohol Use Status: Active Non Smoker/No Tobacco Use Status: Active Vital Signs Date Test Result Details 98-Dnh-383704:33 Temperature 98 f Comments: Method: Temporal Pulse [...] Date Description Value Details :56 Phosphorus Comments: [facility] [address] [facility] [address] [place], [place], [id number] PHOS 3.4 mg/dL (Normal) Range: 2.5-4.9 :56 PTHIN 101.7 pg/mL (Abnormal) Comments: [facility] [address] [facility] [place], [address] Range: 18.4-80.1 :56 Vitamin D,25 Hydroxy Comments: [facility] [address] [place], [address] Vitamin D 25-OH 24.8 ng/mL (Abnormal) Range: 29.95-100.01 Comments: Vitamin D 25(OH) Status Range Deficiency <20 ng/mL (50nmol/L) Insuffciency 20 - 30 ng/mL (50 - 75 nmol/L) Sufficiency 30 - 100 ng/mL (75 - 250 nmol/L) Toxicity >100 ng/mL (>250 nmol/L) 34-Kxs-583328:20 HPV, Reflex Comments: Source.............Cervix;EndocervixNo. of containers..01 ThinPrep VialPATIENT NOT FASTINGPERFORMED BY: [facility] [address] Rachel LANCE [id number] Information: [id number] ([id number]) Note: PAPSMR (Normal) Comments: The Pap smear [...] (ASCP) 24-Jan-20186:43 PTHIN 93.6 pg/mL (Abnormal) Comments: [facility] [address] [place], [place], [address] Range: 18.4-80.1 24-Jan-20186:43 Vitamin D,25 Hydroxy Comments: [facility] [address] [place], [place], [address] Vitamin D 25-OH 30.0 ng/mL (Normal) Range: 29.95-100.01 Comments: Vitamin D 25(OH) Status Range Deficiency <20 ng/mL (50nmol/L) Insuffciency 20 - 30 ng/mL (50 - 75 nmol/L) Sufficiency 30 - 100 ng/mL (75 - 250 nmol/L) Toxicity >100 ng/mL (>250 nmol/L) 95-Qye-93177:34 CBC, Employee Comments: [facility] [address] [place], [place], [address] Absolute Lymph 1.47 {X10_3/ul} (Normal) Range: 0.83-4.51 [...] 4.2-5.4 WBC 5.4 K/mm3 (Normal) Range: 4.4-11.0 77-Rkn-55727:34 Employee Profile Comments: [facility] [address] [place], [place], [address] LDH 184 U/L (Normal) Range: 84-246 VLDL [...] Comments: Please note revised GLUCOSE reference range cuunxxioy30/02/2018. 42-Zrt-36414:34 Nicotine Urine Drug Screen Comments: [facility] [address] [place], [place], [address] COT DRG SCREEN Negative (Normal) Comments: Cotinine [...] results are used. :34 Urinalysis, Employee Comments: [facility] [address] [place], [place], [address] LEUK ESTERASE Negative /ul (Normal) OCCULT BLOOD-UR 25 /ul (Abnormal) NITRITE UR Negative (Normal) UROBILI Normal mg/dL (Normal) PROT DIPSTX Negative mg/dL (Normal) pH UR 6.0 (Normal) Range: 5.0 - 8.0 SP.GR. DIPSTX 1.015 (Normal) Range: 1.002-1.030 KETONE UR Negative mg/dL (Normal) BILIRUBIN URINE Negative mg/dL (Normal) GLUCOSE, UR Normal mg/dL (Normal) CLARITY Clear (Normal) COLOR Yellow (Normal) 26-Gui-106884:26 URINE FREYA CULTURE-CHRISTEN COL Comments: PATIENT NOT FASTINGPERFORMED BY: [facility] SomersetTutlkh6120 [facility] [id number] Information: SRC:UC COUNT (83704) Result 1 MUG (Normal) Comments: Mixed urogenital flora10,000-25,000 colony forming units per mL Urine Final report (Normal) Culture,Comprehensive 92-Zdn-549209:52 Urinalysis, Office (94151) UA - LEUKOCYTE ESTERASE Negative (Normal) UA - NITRITE Negative (Normal) URINE UROBILINGN CHRISTEN TIMED Normal mg/dL (Normal) UA - PROTEIN Negative mg/dL (Normal) UA - PH 6 (Abnormal) UA - BLOOD Hemolyzed Trace (Normal) UA - SPECIFIC GRAVITY 1.005 (Normal) UA - KETONES Negative mg/dL (Normal) UA - BILIRUBIN Negative (Normal) UA - GLUCOSE Negative (Normal) :18 CBC, Employee Comments: [facility] [address] [place], [place], [address] Absolute Lymph 1.73 {X10_3/ul} (Normal) Range: 0.83-4.51 [...] (Normal) Range: 4.4-11.0 :18 Employee Profile Comments: [facility] [address] [place], [place], [address] LDH 170 U/L (Normal) Range: 84-246 VLDL [...] 70-110 :18 Nicotine Urine Drug Screen Comments: [facility] [address] [place], [place], [address] COT DRG SCREEN Negative (Normal) Comments: Cotinine [...] results are used. :18 Urinalysis, Employee Comments: [facility] [address] [place], [address] LEUK ESTERASE 25 /ul (Abnormal) [...] COLOR Yellow (Normal) :46 CBC, Employee Comments: [facility] [address] [place], [place], [address] Absolute Lymph 1.85 {X10_3/ul} (Normal) Range: 0.83-4.51 [...] (Normal) Range: 4.4-11.0 :46 Employee Profile Comments: [facility] [address] [place], [place], [address] LDH 188 U/L (Normal) Range: 84-246 VLDL [...] 70-110 :46 Nicotine Urine Drug Screen Comments: [facility] [address] [place], [place], [address] COT DRG SCREEN Negative (Normal) Comments: Cotinine [...] Employee Comments: How was Urine Obtained? CLEAN [facility] [address] [place], [address] LEUK ESTERASE 25 /ul (Abnormal) [...] (Normal) :16 CBC, Employee Comments: Test performed at:[facility] [address] [facility] [address] [place], [place] [address] ; fu 8-19 Absolute Lymph 1.68 {X10_3/ul} [...] 4.2-5.4 WBC 7.0 K/mm3 (Normal) Range: 4.4-11.0 13-Tbx-75930:16 Employee Profile Comments: Test performed at:[facility] [address] [place] [address] LDH 203 U/L (Normal) Range: [...] Comments: Please note revised CREATININE reference range idxyupbzm47/22/2015. BUN 18 mg/dL (Normal) Range: 7-18 GLU 95 mg/dL (Normal) Range: 70-110 85-Tzc-24556:16 Urinalysis, Employee Comments: Test performed at:[facility] [address] [place] [address] LEUK ESTERASE 25 /ul (Abnormal) [...] CHOL 180 mg/dL (Normal) Comments: <200 mg/dL Lrgmdnfhm467-255 mg/dL Borderline>240 mg/dL High Risk BID 0.23 [...] - 250 nmol/L)Toxicity >100 ng/mL (>250 nmol/L) 59-Yap-707547:13 Vitamin D Hydroxy (73705) Comments: PATIENT NOT FASTINGPERFORMED BY: [facility] SomersetFbomwi4313 [facility] [id number] Vitamin D, 25-Hydroxy 22.5 ng/mL (Abnormal) Range: 30.0-100.0 Comments: Vitamin D deficiency has been defined by the Pine ofMedicine and an Endocrine Society practice guideline as alevel of serum 25-OH vitamin D less than 20 ng/mL (1,2).The Endocrine Society went on to further define vitamin Dinsufficiency as a level between 21 and 29 ng/mL (2).1. IOM ([employer] of Medicine). 2010. Dietary reference intakes for calcium and D. [place]: The National Academies Press.2. Emily MF, Peggy BATISTA, Cisco PACHECO, et al. Evaluation, treatment, and prevention of vitamin D deficiency: an Endocrine Society clinical practice guideline. JCEM. 2010; 96(7):1911-30. :13 PHOSPHORUS (21006) Comments: PATIENT NOT FASTINGPERFORMED BY: [facility] [address] [place] [facility]in [place] [id number] Phosphorus, Serum 3.2 mg/dL (Normal) Range: 2.5-4.5 :13 PARATHORMONE (51317) Comments: PATIENT NOT FASTINGPERFORMED BY: [facility] [address] [place] [address] [id number] PTH, Intact 36 pg/mL (Normal) Range: 15-65 :13 METABOLIC PANEL, Comments: PATIENT NOT FASTINGPERFORMED BY: [facility] [address] [place] [facility] Centerin [place] [id number] Information: [id number] COMPREHENSIVE (14003) ALT (SGPT) 20 [iU]/L (Normal) Range: 0-32 [...] CHOL 195 mg/dL (Normal) Comments: <200 mg/dL Sgehtffid077-434 mg/dL Borderline>240 mg/dL High Risk :06 MIACRE [...] size of the right kidney. The right gifxdbaopkekzq20.1 cm. Nor mal renal cortex. The right cortex measures 1.4 cm. Thereisno demonstrated renal mass or cyst. There is no right hydronephrosis. IMPRESSION:Small hepatic cysts. Sig beatriz:Leo Pedicelli, M.D.March 23, 2013 at 10:17:49 AM [id number] Signed GP/GP If you are the referring physician and would like to consult with theradiologist who provided this interpretation, please contact Jose M Pichardo at [phone]. If this radiologist is unavailable, youwill be directed to another radiologist to assist. If you are a patient with a question re garding this report, pleasecontactyour referring physician directly. Professional Interpretation Provided By: [employer], Phone , These documents contain legally protected [...] mg/dL Range: 0.00-1.00 g-201 (Abnormal) 315:4 9 32-Aiv-32132:19 Urinalysis, Office (39936) UA - BILIRUBIN Negative (Normal) UA - BLOOD Non Hemolyzed Trace (Normal) UA - GLUCOSE Negative (Normal) UA - KETONES Negative mg/dL (Normal) UA - LEUKOCYTE ESTERASE Negative (Normal) UA - NITRITE Negative (Normal) UA - PH 6.0 (Normal) UA - PROTEIN Negative mg/dL (Normal) UA - SPECIFIC GRAVITY 1.020 (Normal) URINE UROBILINGN CHRISTEN TIMED Normal mg/dL (Normal) 39-Bnc-557059:57 HgA1C , Office (93902) Comments: 5.4 HgA1C , Office 5.4 % (Normal) Range: 4.6 - 7.1 :57 Blood Glucose , Office (07326) Comments: 75 Blood Glucose , 75 (Normal) Office MISC (Normal) Comments: VMA, Random Urine RESULTS LIMITSVMA, Random Urine 6.6 mg/L UndefinedVMA/Cylinder Die Machine Helper, Random U 3.6 mg/g Creat 0.0-6.0 CHRISTEN :40 TING PERFORMED AT [facility]. ORIGINAL REPORT ON FILE IN LAB CONTAINS ADDITIONAL TEST SITE INFORMATION. MISC2 (Normal) Comments: Catecholamines, Ur., Free, Random RESULT LIMITSCreatinine, Random U 181.1 mg/dL 15.0-278.0Epinephrine, Urine 1 ug/L UndefinedEpinephrine :40 1 ug/g Creat 0-19Norepinephrine, Urine 52 ug/L UndefinedNorepinephrine 29 ug/g Creat 0-111Dopamine, Urine 409 ug/L UndefinedDopamine 226 ug/g Crea t 0-348 TESTING PERFORMED AT [facility]. ORIGINAL REPORT ON FILE IN LAB CONTAINS ADDITIONAL TEST SITE INFORMATION. MISC3 (Normal) Comments: Metanephrines, Pheochromocyt RESULT LIMITSNormetanephrine, Ur 369 ug/L UndefinedMetanephrine, Ur 147 ug/L UndefinedMetaneph/Creat Ratio 0.3 UG/ :40 MG Creat 0.0-1.0 TESTING PERFORMED AT [facility]. ORIGINAL REPORT ON FILE IN LAB [...] 2.80 Na= >150 0.39 - 1.31Performed at: [address] [id number] Director: Ariel Jung MD, Phone: [phone] 07-Jsf-708485:59 KIDNEY Radiology Report See Note (Normal) Comments: [...] Hanson M.D.June 02, 2012 at 4:09:04 PM [id number] Signed DL/DL If you are the referring physician and would like to consult with theradiologist who provided this i nterpretation, please contact Jose M Costello at [phone]. If this radiologist is unavailable, youwillbe directed to another radiologist to assist. If you are a patient with a question regarding this report, pleasecontactyour referring physician directly. Professional Interpretation Provided By: [employer], Phone , These documents contain legally protected [...] Flags Indication: Hypertension, benign Planned Observations PARATHORMONE (47957)Indication: Secondary hyperparathyroidism On: 93-Hqz-942750:01 Request CALCIFEDIOL (20814)Indication: Secondary hyperparathyroidism On: 00-Nym-665948:00 Request PHOSPHORUS (90746)Indication: Elevated parathyroid hormone On: 66-Vek-64969:52 Request Comments: Mar 2018 PARATHORMONE (24424)Indication: Elevated parathyroid hormone On: 42-Tpa-72059:52 Request Comments: Mar 2018 CALCIFEDIOL (91506)Indication: Elevated parathyroid hormone On: 66-Jkf-31912:51 Request Comments: Mar 2018 Thin prep Pap (46027) (no STD testing)Indication: Encounter for gynecological examination without abnormal finding On: 05-Ckc-93303:08 Request CALCIFEDIOL (33492)Indication: Hypophosphatemia On: 5-Orh-545891:25 Request PARATHORMONE (24617)Indication: Hypophosphatemia On: 9-Ubw-190461:24 Request URINALYSIS, W/ MICRO (79082)Indication: Other abnormal finding of urine On: 87-Hzx-385168:33 Request URINE FREYA CULTURE (CHRISTEN COL COUNT) (10442)Indication: Other abnormal finding of urine On: 99-Aoc-057571:33 Request Potassium Serum (44646)Indication: Hypokalemia (Renamed from Decreased potassium in the blood) On: :49 Request URINE FREYA CULTURE (CHRISTEN COL COUNT) (85338)Indication: Other abnormal finding of urine On: :49 Request URINALYSIS, W/ MICRO (09604)Indication: Other abnormal finding of urine On: :49 Request METABOLIC PANEL, COMPREHENSIVE (09396)Indication: Hypertension, benign On: 96-Wnh-44255:03 Request Vitamin D Hydroxy (30743)Indication: Vitamin D deficiency On: 80-Ayi-55169:02 Request CALCIFEDIOL (68005)Indication: Vitamin D deficiency On: 70-Ked-163983:55 Request T3, FREE (TRIDOTHYRONINE) (56913)Indication: Tachycardia On: 79-Lzu-705042:12 Request T4, FREE (THYROXINE) (07006)Indication: Tachycardia On: 73-Aky-079461:12 Request TSH (01520)Indication: Tachycardia On: 57-Rgm-034823:12 Request PARATHORMONE (80608)Indication: Hypocalcemia On: :49 Request LIPID PANEL (87482)Indication: Hypertension, benign On: :49 Request MICROALBUMIN: CREATININE RATIO (08130) AND (93422)Indication: Hypertension, benign On: :49 Request CBC WITH MANUAL DIFF (30119)Indication: Migraine with aura and without status migrainosus, not intractable On: :49 Request METABOLIC PANEL, COMPREHENSIVE (71199)Indication: Hypocalcemia On: 87-Krt-330911:49 Request Bilirubin, total (92495)Indication: Elevated bilirubin On: 66-Dym-042878:08 Request Bilirubin, Direct (58740)Indication: Elevated bilirubin On: 69-Ryl-152769:08 Request RENIN (59782)Indication: Hypertension, benign On: :54 Request METANEPHRINES - URINE (77337)Indication: Hypertension, benign On: :54 Request CATECHOLAMINES TOTAL, URINE (66750)Indication: Hypertension, benign On: :54 Request URINE VMA (58326)Indication: Hypertension, benign On: :54 Request TSH (76810)Indication: Hypertension, benign On: :02 Request URINALYSIS, W/ MICRO (30195)Indication: Hypertension, benign On: :02 Request MICROALBUMIN: CREATININE RATIO (71461) AND (50895)Indication: Hypertension, benign On: :02 Request MICROALBUMIN URINE QUANT (42423)Indication: Hypertension, benign On: :02 Request CREATININE, URINE (95418)Indication: Hypertension, benign On: :02 Request CBC WITH MANUAL DIFF (05506)Indication: Hypertension, benign On: 21-Fxq-697837:02 Request Planned Procedures SCREENING DIGITAL TOMOSYNTHESIS OF On: 06-May-2018 Intent BREAST (74359)By: Giulia Graham CNP, CNP, Mary E PARATHYROID SCAN (22776)By: Santos On: 15-Apr-2018 Intent Giulia SCHREIBER CNP, Mary E Comments: to evaluate for parathyroid adenoma ELECTROCARDIOGRAM, COMPLETE (ECG) On: 21-Jan-2018 Intent (24991)By: Giulia Graham CNP, CNP, Mary E SCREENING DIGITAL TOMOSYNTHESIS OF On: 01-Mar-2017 Intent BREAST (79983)By: Giulia Graham CNP, CNP, Mary E PHYSICAL THERAPY (42572)By: Frederic On: 08-Dec-2016 Intent Vianey Comments: Dry Needle if needed. Radiology - Cervical SpineBy: On: 08-Dec-2016 Intent Vianey De La Garza MAMMOGRAM, SCREENING, BOTH BREAST On: 03-Mar-2016 Intent (91712)By: Giulia Graham CNP, CNP, Mary E DEXA SCAN AXIAL SKELETON (94934)By: On: 03-Mar-2016 Intent Giulia Graham CNP, CNP, Mary E MAMMOGRAM, SCREENING, BOTH BREAST On: 06-Mar-2015 Intent (06745)By: Jaimee Jarrett DO CT - Brain/HeadBy: Jaimee Jarrett DO On: 27-Oct-2013 Intent Comments: with and without contrast Eprescribed prescriptions (G8553)By: On: 27-Oct-2013 Intent Jaimee Jarrett DO EKG (64993)By: Jaimee Jarrett DO On: 03-Jul-2013 Intent Comments: ekg showed normal sinus rhythym, normal axis, no acute st/t wave changes hr 99 MAMMOGRAM, SCREENING, BOTH BREASTS On: 03-Jul-2013 Intent (89712)By: Jaimee Jarrett DO Eprescribed prescriptions (G8553)By: On: 03-Jul-2013 Intent Elvira Valencia Ultrasound - GallbladderBy: Santos On: 15-Mar-2013 Intent Giulia SCHREIBER CNP, Mary E Ultrasound - RenalBy: Santos SCHREIBER On: 08-Jul-2012 Intent Giulia Muñiz CNP Comments: schedule in November Ultrasound - RenalBy: Santos SCHREIBER, On: 27-May-2012 Intent Giulia Muñiz CNP EKG (09757)By: Giulia Graham CNP On: 13-Apr-2012 Intent Giulia [...] deficiency : DISCONTINUED - Vitamin D Hydroxy (07157) Indication: Vitamin D deficiency Hypertension, benign : DISCONTINUED - METABOLIC PANEL, COMPREHENSIVE (47707) Indication: Hypertension, benign UTI symptoms : How [...] MIGRAINOSUS (346.81) [facility] [employer] [place] [employer] Shawn Mahmood; a guarantor
--- OUTSIDE RECORDS SUMMARY | 2018-08-16 20:25 | XMS RPT_ITS | Continuity of Care Document ---
:1960 Author Organization [facility] Address [address] [place] [address] Phone Care Team Providers Name Role Phone Santos CANDIEGiulia E Unavailable Roderick BRICEÑO, Shubham Ya Unavailable [facility] [place] Unavailable Narendra BRICEÑO, Ranjit Guerrero Unavailable Dr. [...] screening for osteoporosis) (Z13.820, V82.81) Status: Active Screening mammogram, encounter for (Z12.31, V76.12) Status: Active Secondary hyperparathyroidism (N25.81, 588.81) Comments: [...] days Quantity: 60 {Tablet} Refills: 0 Ordered:03-Mar-2016 SlaDomenica davis LPN Start : 29-Mar-2013 End : 03-Mar-2016 Discontinued TOPAMAX, 25MG (Oral Tablet) 1 (one) Tablet qhs for 1 week then take bid for 0 days Quantity: 60 {Tablet} Refills: 3 Ordered:02-Feb-2014 Elvira Valencia Start : 30-Oct-2013 End : 02-Feb-2014 Discontinued Vitamin D3 62258 UNIT Oral Capsule 2 (two) Capsule Capsule [...] Parathyroid Scan Result: Comments: See Note; NOTES: [facility] Imaging Services [address] [place] [address] Parathyroid Scan MR#: [id number] Acct: [id number] Name: JENARO MAHMOOD Rep #: [id number] D OB: 1960 F 57 From: Tobias Nunez DO PCP: Giulia Graham NP Status: REG CLI Study: Parathyroid Scan Date of Exam: 04/29/18 Exam# [id number] Ordering Dr: Giulia Graham INSURANCE COMPLIANCE ANALYST-C CLINICAL: 57-year-old female with history of elevation [...] Service support , CC: Giulia Graham NP Company Driver: Signed 28-Jun-2017 Operative Report Result: Comments: See Note; NOTES: [facility] Medical Records Department [address] [place] [address] Operative Report 06/28/17 0822 MR#: [id number] Acct: [id number] Name: CHALO MAHMOOD Rep #: [id number] : 1960 56 From: Shubham Paredes MD PCP: Giulia Graham NP Status: REG CLI Y Location: EN Problem List (1) Screen for colon cancer Status: Acute Report of Operation Date of Procedure: 06/28/17 Pre-Operative Diagnosis: Screening colonoscopy Post-Operative Diagnosis: Same Surgery/Procedure Performed:: Colonoscopy marketing graphics specialist: None Type of Anesthesia:: MAC Anesthesiologist: Joselito [...] ordered:: Treatment Not Indicated Code Visit 40xxx-49xxx: 70083 Diagnostic colonoscopy 06/28/17825 <Electronically signed by Shubham carranza MD> Date Shubham Paredes MD CC: Giulia Graham NP; santos greene; Shubham Paredes MD Signed 28-Jun-2017 History and Physical Exam Result: Comments: See Note; NOTES: [facility] Medical Records Department [address] [place] [address] History and Physical 06/28/17818 MR#: [id number] Acct: [id number] Name: Ashley MAHMOOD Rep #: [id number] : 1960 56 From: Shubham Paredes MD PCP: Giulia Graham NP Status: REG CLI Y Location: EN Problem List (1) Screen for colon cancer Status: Acute History of Present Illne ss Date of Admission: 06/28/17 The patient is a 56 year old F who presents for a screening colonoscopy. 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: - - Patient has had [...] Signature: Date (if applicable) CC: Giulia Graham INSURANCE COMPLIANCE ANALYST; Shubham Paredes MD Signed 08-Dec-2016 Cerv Spine 4 or 5 Views Result: Comments: See Note; NOTES: [facility] Imaging Services [address] [place] [address] Verdana 4d Cerv Spine 4 or 5 Views MR#: [id number] Acct: [id number] Name: JENARO MAHMOOD Rep #: [id number] : 1960 F 56 From: Sarah Flor MD PCP: Giulia Graham Status: REG CLI Study: Cerv Spine 4 or 5 Views Date of Exam: 12/08/16 Exam# [id number] Ordering Dr: Vianey De La Garza Y: [...] Serv ice support , CC: Vianey Graham Company Driver: Signed 16-Nov-2013 Brain/Head W/WO Contrast Result: Comments: See Note; NOTES: [facility] Imaging Services [address] [place] [address] CAT Scan Report MR#: [id number] Acct: [id number] Name: JENARO MAHMOOD Rep #: [id number] : 1960 F 53 From: Ashley Stover MD PCP: Jaimee Jarrett DO Status: REG CLI Study: Brain/Head W/WO Contrast Date of Exam: 11/16/13 Exam# [id number] Ordering Dr: Jaimee Jarrett DO STUDY: CT [...] MD at 13:39 EDT , Service support [phone], CC: Jaimee Jarrett DO Company Driver: Signed 13-Oct-2013 Bilat Scrn Digital & CAD Result: Comments: See Note; NOTES: [facility] Imaging Services [address] [place] [address] Breast Imaging Report MR#: [id number] Acct: [id number] Name: JENARO MAHMOOD Rep #: [id number] : 1960 F 53 From: Leo Guardado MD PCP: Jaimee Jarrett DO Status: REG CLI Exam# [id number] Ordering Dr: Jaimee Jarrett DO MAMMOGRAPHY - [...] M.D. at 7:50 EDT , Service support [phone], CC: Jaimee Jarrett DO Company Driver: Signed Social History Name Dates Details No Caffeine Use Status: Active No Drug Use Status: Active Non Drinker/No Alcohol Use Status: Active Non Smoker/No Tobacco Use Status: Active Vital Signs Date Test Result Details 56-Bib-580872:33 Temperature 98 f Comments: Method: Temporal Pulse [...] kg/m2 Body Surface Area Calculated 1.89 m2 76-Tfd-652739:46 Temperature 97.4 f Pulse 89 /min Comments: [...] kg/m2 Body Surface Area Calculated 1.9 m2 57-Xcm-564408:11 Temperature 97.9 f Pulse 93 /min Comments: [...] kg/m2 Body Surface Area Calculated 1.89 m2 50-Eyt-309943:50 Temperature 98.2 f Comments: Method: Oral Pulse [...] 1.91 m2 Results Date Description Value Details :33 PTHIN 85.5 pg/mL (Abnormal) Comments: [facility] [address] [place], [address] Range: 18.4-80.1 :33 Vitamin D,25 Hydroxy Comments: [facility] [address] [place], [address] Vitamin D 25-OH 34.9 ng/mL (Normal) Range: 29.95-100.01 Comments: Vitamin D 25(OH) Status Range Deficiency <20 ng/mL (50nmol/L) Insuffciency 20 - 30 ng/mL (50 - 75 nmol/L) Sufficiency 30 - 100 ng/mL (75 - 250 nmol/L) Toxicity >100 ng/mL (>250 nmol/L) :56 Phosphorus Comments: [facility] [address] [place], [address] PHOS 3.4 mg/dL (Normal) Range: 2.5-4.9 55-Tzy-840135:56 PTHIN 101.7 pg/mL (Abnormal) Comments: [facility] [address] [place], [id number] Range: 18.4-80.1 99-Ayw-927268:56 Vitamin D,25 Hydroxy Comments: [facility] [address] [place], [address] Vitamin D 25-OH 24.8 ng/mL (Abnormal) Range: 29.95-100.01 Comments: Vitamin D 25(OH) Status Range Deficiency <20 ng/mL (50nmol/L) Insuffciency 20 - 30 ng/mL (50 - 75 nmol/L) Sufficiency 30 - 100 ng/mL (75 - 250 nmol/L) Toxicity >100 ng/mL (>250 nmol/L) 53-Pyk-585996:20 HPV, Reflex Comments: Source.............Cervix;EndocervixNo. of containers..01 ThinPrep VialPATIENT NOT FASTINGPERFORMED BY: [facility] [id number] Information: [id number] ([id number]) Note: PAPSMR (Normal) Comments: The Pap smear [...] Endocervical and/or squamous metaplasticcells (endocervical component) are present.Z01.419Sashameka Parra Cytot echnologist (ASCP) :43 PTHIN 93.6 pg/mL (Abnormal) Comments: [facility] [address] [place], [id number] Range: 18.4-80.1 24-Jan-20186:43 Vitamin D,25 Hydroxy Comments: [facility] [address] [place], [address] Vitamin D 25-OH 30.0 ng/mL (Normal) Range: 29.95-100.01 Comments: Vitamin D 25(OH) Status Range Deficiency <20 ng/mL (50nmol/L) Insuffciency 20 - 30 ng/mL (50 - 75 nmol/L) Sufficiency 30 - 100 ng/mL (75 - 250 nmol/L) Toxicity >100 ng/mL (>250 nmol/L) 90-Lyz-53192:34 CBC, Employee Comments: [facility] [address] [place], [id number] Absolute Lymph 1.47 {X10_3/ul} (Normal) Range: 0.83-4.51 [...] 4.2-5.4 WBC 5.4 K/mm3 (Normal) Range: 4.4-11.0 68-Gmr-82354:34 Employee Profile Comments: [facility] [address] [place], [place], [address] LDH 184 U/L (Normal) Range: 84-246 VLDL [...] Comments: Please note revised GLUCOSE reference range sikgnvngi88/02/2018. 85-Ehs-61243:34 Nicotine Urine Drug Screen Comments: [facility] [address] [place], [place], [phone] COT DRG SCREEN Negative (Normal) Comments: Cotinine [...] Employee Comments: [facility] [address] [place], [place], [address] LEUK ESTERASE Negative /ul (Normal) OCCULT BLOOD-UR 25 /ul (Abnormal) NITRITE UR Negative (Normal) UROBILI Normal mg/dL (Normal) PROT DIPSTX Negative mg/dL (Normal) pH UR 6.0 (Normal) Range: 5.0 - 8.0 SP.GR. DIPSTX 1.015 (Normal) Range: 1.002-1.030 KETONE UR Negative mg/dL (Normal) BILIRUBIN URINE Negative mg/dL (Normal) GLUCOSE, UR Normal mg/dL (Normal) CLARITY Clear (Normal) COLOR Yellow (Normal) 89-Rna-410153:26 URINE FREYA CULTURE-CHRISTEN COL Comments: PATIENT NOT FASTINGPERFORMED BY: KIARA [facility] [address] Adam PatelD[facility] Healthmayo [place] [id number] Information: SRC:UC COUNT (49679) Result 1 MUG (Normal) Comments: Mixed urogenital flora10,000-25,000 colony forming units per mL Urine Final report (Normal) Culture,Comprehensive 25-Utr-967211:52 Urinalysis, Office (19967) UA - LEUKOCYTE ESTERASE Negative (Normal) UA - NITRITE Negative (Normal) URINE UROBILINGN CHRISTEN TIMED Normal mg/dL (Normal) UA - PROTEIN Negative mg/dL (Normal) UA - PH 6 (Abnormal) UA - BLOOD Hemolyzed Trace (Normal) UA - SPECIFIC GRAVITY 1.005 (Normal) UA - KETONES Negative mg/dL (Normal) UA - BILIRUBIN Negative (Normal) UA - GLUCOSE Negative (Normal) 76-Egi-62862:18 CBC, Employee Comments: [facility] [address] [facility] [place], [place], [id number] Absolute Lymph 1.73 {X10_3/ul} (Normal) Range: 0.83-4.51 [...] 4.2-5.4 WBC 6.8 K/mm3 (Normal) Range: 4.4-11.0 83-Kcj-97525:18 Employee Profile Comments: [facility] [address] [place], [place], [address] LDH 170 U/L (Normal) Range: 84-246 VLDL [...] Screen Comments: [facility] [address] [place], [place], [address] COT DRG SCREEN Negative (Normal) Comments: Cotinine [...] Employee Comments: [facility] [address] [facility] [address]. [place], [place], [address] LEUK ESTERASE 25 /ul (Abnormal) OCCULT BLOOD-UR [...] Employee Comments: [facility] [address] [place], [address] Absolute Lymph 1.85 {X10_3/ul} (Normal) Range: 0.83-4.51 [...] Profile Comments: [facility] [address] [place], [place], [address] LDH 188 U/L (Normal) Range: 84-246 VLDL [...] Screen Comments: [facility] [address] [place], [place], [phone] COT DRG SCREEN Negative (Normal) Comments: Cotinine [...] Employee Comments: How was Urine Obtained? CLEAN [facility] [address] [place], [place], [address] LEUK ESTERASE 25 /ul (Abnormal) OCCULT BLOOD-UR [...] CLARITY Sl. Cloudy (Normal) COLOR Yellow (Normal) 67-Zii-20341:16 CBC, Employee Comments: Test performed at:[facility] [address] [place] [address] ; fu 8-19 Absolute Lymph 1.68 {X10_3/ul} [...] 4.2-5.4 WBC 7.0 K/mm3 (Normal) Range: 4.4-11.0 79-Mga-89333:16 Employee Profile Comments: Test performed at:[facility] [address] [place] [address] LDH 203 U/L (Normal) Range: [...] Comments: Please note revised CREATININE reference range dusvfpwae07/22/2015. BUN 18 mg/dL (Normal) Range: 7-18 GLU 95 mg/dL (Normal) Range: 70-110 21-Ibp-64424:16 Urinalysis, Employee Comments: Test performed at:[facility] [address] [place] [address] LEUK ESTERASE 25 /ul (Abnormal) OCCULT BLOOD-UR [...] CLARITY Sl. Cloudy (Normal) COLOR Yellow (Normal) :00 CBCEM ALC 1.50 {X10_3/ul} (Normal) Range: 0.83-4.51 [...] CHOL 180 mg/dL (Normal) Comments: <200 mg/dL Wpfwoacer579-945 mg/dL Borderline>240 mg/dL High Risk BID 0.23 [...] (Normal) UCLAR Cloudy (Normal) UCOL Yellow (Normal) 3-Sep-49740:00 VITD 36.5 mg/mL (Normal) Comments: Vitamin D 25(OH) Status RangeDeficiency <20 ng/mL (50nmol/L)Insuffciency 20 - 30 ng/mL (50 - 75 nmol/L)Sufficiency 30 - 100 ng/mL (75 - 250 nmol/L)Toxicity >100 ng/mL (>250 nmol/L) 60-Rby-549944:13 Vitamin D Hydroxy (24657) Comments: PATIENT NOT FASTINGPERFORMED BY: [facility] [address] RoadDublin [place] [id number] Vitamin D, 25-Hydroxy 22.5 ng/mL (Abnormal) Range: 30.0-100.0 Comments: Vitamin D deficiency has been defined by the [place] [facility] and an Endocrine Society practice guideline as alevel of serum 25-OH vitamin D less than 20 ng/mL (1,2).The Endocrine Society went on to further define vitamin Dinsufficiency as a level between 21 and 29 ng/mL (2).1. IOM ([place] of Medicine). 2010. Dietary reference intakes for calcium and D. [place]: The National Academies Press.2. Emily MF, Peggy NC, [employer] PACHECO, et al. Evaluation, treatment, and prevention of vitamin D deficiency: an Endocrine Society clinical practice guideline. JCEM. 2010; 96(7):1911-30. 15-Tdj-331073:13 PHOSPHORUS (38573) Comments: PATIENT NOT FASTINGPERFORMED BY: [facility] [address] RoadDublin [place] [id number] Phosphorus, Serum 3.2 mg/dL (Normal) Range: 2.5-4.5 46-Xjb-149340:13 PARATHORMONE (46126) Comments: PATIENT NOT FASTINGPERFORMED BY: CB [facility] [address] RoadDublin [place] [id number] PTH, Intact 36 pg/mL (Normal) Range: 15-65 44-Tgv-940594:13 METABOLIC PANEL, Comments: PATIENT NOT FASTINGPERFORMED BY: CB [facility] F[address]pli[address] RoadDublin [place] [id number] Information: [id number] COMPREHENSIVE (19365) ALT (SGPT) 20 [iU]/L (Normal) Range: 0-32 [...] Glucose, Serum 96 mg/dL (Normal) Range: 65-99 01-Bki-50070:06 CBCD ANC 4.5 {X10_3/uL} (Normal) Range: 2.0-7.7 [...] CHOL 195 mg/dL (Normal) Comments: <200 mg/dL Cpymuqrnk051-170 mg/dL Borderline>240 mg/dL High Risk :06 MIACRE [...] size of the right kidney. The right rgjrlihkifezgb56.1 cm. Nor mal renal cortex. The right cortex measures 1.4 cm. Thereisno demonstrated renal mass or cyst. There is no right hydronephrosis. IMPRESSION:Small hepatic cysts. Sig beatriz:Leo Guardado M.D.March 23, 2013 at 10:17:49 AM [id number] Signed GP/GP If you are the referring physician and would like to consult with theradiologist who provided this interpretation, please contact Jose M Pichardo at [phone]. If this radiologist is unavailable, youwill be directed to another radiologist to assist. If you are a patient with a question re garding this report, pleasecontactyour referring physician directly. Professional Interpretation Provided By: [facility], Phone , These documents contain legally protected [...] mg/dL Range: 0.00-1.00 g-201 (Abnormal) 315:4 9 74-Kbc-61352:19 Urinalysis, Office (19580) UA - BILIRUBIN Negative (Normal) UA - BLOOD Non Hemolyzed Trace (Normal) UA - GLUCOSE Negative (Normal) UA - KETONES Negative mg/dL (Normal) UA - LEUKOCYTE ESTERASE Negative (Normal) UA - NITRITE Negative (Normal) UA - PH 6.0 (Normal) UA - PROTEIN Negative mg/dL (Normal) UA - SPECIFIC GRAVITY 1.020 (Normal) URINE UROBILINGN CHRISTEN TIMED Normal mg/dL (Normal) :57 HgA1C , Office (28758) Comments: 5.4 HgA1C , Office 5.4 % (Normal) Range: 4.6 - 7.1 :57 Blood Glucose , Office (81008) Comments: 75 Blood Glucose , 75 (Normal) Office MISC (Normal) Comments: VMA, Random Urine RESULTS LIMITSVMA, Random Urine 6.6 mg/L UndefinedVMA/Hardening Machine Operator Helper, Random U 3.6 mg/g Creat 0.0-6.0 CHRISTEN :40 TING PERFORMED AT [facility]. ORIGINAL REPORT ON FILE IN LAB CONTAINS ADDITIONAL TEST SITE INFORMATION. MISC2 (Normal) Comments: Catecholamines, Ur., Free, Random RESULT LIMITSCreatinine, Random U 181.1 mg/dL 15.0-278.0Epinephrine, Urine 1 ug/L UndefinedEpinephrine :40 1 ug/g Creat 0-19Norepinephrine, Urine 52 ug/L UndefinedNorepinephrine 29 ug/g Creat 0-111Dopamine, Urine 409 ug/L UndefinedDopamine 226 ug/g Crea t 0-348 [facility]. ORIGINAL REPORT ON FILE IN LAB CONTAINS ADDITIONAL TEST SITE INFORMATION. MISC3 (Normal) Comments: Metanephrines, Pheochromocyt RESULT LIMITSNormetanephrine, Ur 369 ug/L UndefinedMetanephrine, Ur 147 ug/L UndefinedMetaneph/Creat Ratio 0.3 UG/ :40 MG Creat 0.0-1.0 TESTING PERFORMED AT [facility]. ORIGINAL REPORT ON FILE IN LAB CONTAINS ADDITIONAL TEST SITE INFORMATION. OTTO 6.56 {ng/mL/hr} Comments: Adult Normal Salt Intake: Upright 1.31 - 3.95 Supine 0.15 - 2. 5:51 (Normal) 33 . Salt Excretion (Na mEq/24 hr): Na= 0 - 30 8.82 - 23.86 Na= 30 - 75 4.09 - 7.73 Na= 75 - 150 1.44 - 2.80 Na= >150 0.39 - 1.31Performed at: [address] [id number] Director: Ariel Jung MD, Phone: [phone] 66-Fbq-571691:59 KIDNEY Radiology Report See Note (Normal) Comments: [...] Hanson M.D.June 02, 2012 at 4:09:04 PM [id number] Signed DL/DL If you are the referring physician and would like to consult with theradiologist who provided this i nterpretation, please contact Jose M Costello at [phone]. If this radiologist is unavailable, kendallbe directed to another radiologist to assist. If you are a patient with a question regarding this report, pleasecontactyour referring physician directly. Professional Interpretation Provided By: [facility], Phone , These documents contain legally protected [...] return or destructionofthese documents. Dic tated on 06/02/121531 by Jatinder Hanson MDTranscribed on 06/02/121619 by ITS IMPORTSign by Jatinder Hanson MD on 06/02/121620 Sign by: Jatinder Hanson MD :50 MIACRE [...] Flags Indication: Hypertension, benign Planned Observations PARATHORMONE (60404)Indication: Secondary hyperparathyroidism On: 84-Qnb-849223:59 Request CALCIFEDIOL (80866)Indication: Secondary hyperparathyroidism On: 96-Bkv-530377:59 Request PHOSPHORUS (42852)Indication: Elevated parathyroid hormone On: :52 Request Comments: Mar 2018 PARATHORMONE (04993)Indication: Elevated parathyroid hormone On: :52 Request Comments: Mar 2018 CALCIFEDIOL (15457)Indication: Elevated parathyroid hormone On: :51 Request Comments: Mar 2018 Thin prep Pap (95727) (no STD testing)Indication: Encounter for gynecological examination without abnormal finding On: :08 Request CALCIFEDIOL (17218)Indication: Hypophosphatemia On: 0-Owu-251699:25 Request PARATHORMONE (24341)Indication: Hypophosphatemia On: 5-Odz-921971:24 Request URINALYSIS, W/ MICRO (26650)Indication: Other abnormal finding of urine On: 45-Vbq-588603:33 Request URINE FREYA CULTURE (CHRISTEN COL COUNT) (04110)Indication: Other abnormal finding of urine On: 81-Aps-347532:33 Request Potassium Serum (07498)Indication: Hypokalemia (Renamed from Decreased potassium in the blood) On: :49 Request URINE FREYA CULTURE (CHRISTEN COL COUNT) (28602)Indication: Other abnormal finding of urine On: :49 Request URINALYSIS, W/ MICRO (49775)Indication: Other abnormal finding of urine On: :49 Request METABOLIC PANEL, COMPREHENSIVE (75317)Indication: Hypertension, benign On: :03 Request Vitamin D Hydroxy (57975)Indication: Vitamin D deficiency On: :02 Request CALCIFEDIOL (14267)Indication: Vitamin D deficiency On: 02-Ovh-036084:55 Request T3, FREE (TRIDOTHYRONINE) (56387)Indication: Tachycardia On: :12 Request T4, FREE (THYROXINE) (92759)Indication: Tachycardia On: :12 Request TSH (32024)Indication: Tachycardia On: 54-Ozx-279572:12 Request PARATHORMONE (97725)Indication: Hypocalcemia On: :49 Request LIPID PANEL (03766)Indication: Hypertension, benign On: :49 Request MICROALBUMIN: CREATININE RATIO (12259) AND (26408)Indication: Hypertension, benign On: :49 Request CBC WITH MANUAL DIFF (69225)Indication: Migraine with aura and without status migrainosus, not intractable On: :49 Request METABOLIC PANEL, COMPREHENSIVE (59693)Indication: Hypocalcemia On: :49 Request Bilirubin, total (67742)Indication: Elevated bilirubin On: 66-Qdx-001665:08 Request Bilirubin, Direct (45848)Indication: Elevated bilirubin On: 99-Ktr-993128:08 Request RENIN (37296)Indication: Hypertension, benign On: :54 Request METANEPHRINES - URINE (86714)Indication: Hypertension, benign On: :54 Request CATECHOLAMINES TOTAL, URINE (45781)Indication: Hypertension, benign On: :54 Request URINE VMA (94853)Indication: Hypertension, benign On: :54 Request TSH (81598)Indication: Hypertension, benign On: 71-Aqo-727013:02 Request URINALYSIS, W/ MICRO (79593)Indication: Hypertension, benign On: 51-Fzp-154581:02 Request MICROALBUMIN: CREATININE RATIO (02984) AND (30722)Indication: Hypertension, benign On: 57-Gze-473641:02 Request MICROALBUMIN URINE QUANT (57776)Indication: Hypertension, benign On: 69-Csm-431128:02 Request CREATININE, URINE (21797)Indication: Hypertension, benign On: 41-Yzn-045542:02 Request CBC WITH MANUAL DIFF (79465)Indication: Hypertension, benign On: 97-Vsm-328170:02 Request Planned Procedures MAMMOGRAM BREAST BILATERAL SCREENING On: 01-Jul-2018 Intent DIGITAL (56709)By: Giulia Graham CNP, CNP, Mary E SCREENING DIGITAL TOMOSYNTHESIS OF On: 06-May-2018 Intent BREAST (35854)By: Giulia Graham CNP, CNP, Mary E PARATHYROID SCAN (96405)By: Santos On: 15-Apr-2018 Intent Giulia SCHREIBER CNP, Mary E Comments: to evaluate for parathyroid adenoma ELECTROCARDIOGRAM, COMPLETE (ECG) On: 21-Jan-2018 Intent (60470)By: Giulia Graham CNP, CNP, Mary E SCREENING DIGITAL TOMOSYNTHESIS OF On: 01-Mar-2017 Intent BREAST (43531)By: Giulia Graham CNP, CNP, Mary E PHYSICAL THERAPY (72246)By: Frederic On: 08-Dec-2016 Intent Vianey Comments: Dry Needle if needed. Radiology - Cervical SpineBy: On: 08-Dec-2016 Intent Vianey De La Garza MAMMOGRAM, SCREENING, BOTH BREAST On: 03-Mar-2016 Intent (19946)By: Giulia Graham CNP, CNP, Mary E DEXA SCAN AXIAL SKELETON (71936)By: On: 03-Mar-2016 Intent Giulia Graham CNP, CNP, Mary E MAMMOGRAM, SCREENING, BOTH BREAST On: 06-Mar-2015 Intent (87780)By: Jaimee Jarrett DO CT - Brain/HeadBy: Jaimee Jarrett DO On: 27-Oct-2013 Intent Comments: with and without contrast Eprescribed prescriptions (G8553)By: On: 27-Oct-2013 Intent Jaimee Jarrett DO EKG (33135)By: Jaimee Jarrett DO On: 03-Jul-2013 Intent Comments: ekg showed normal sinus rhythym, normal axis, no acute st/t wave changes hr 99 MAMMOGRAM, SCREENING, BOTH BREASTS On: 03-Jul-2013 Intent (87270)By: Jaimee Jarrett DO Eprescribed prescriptions (G8553)By: On: 03-Jul-2013 Intent Elvira Valencia Ultrasound - GallbladderBy: Santos On: 15-Mar-2013 Intent Giulia SCHREIBER Crisrachaelfoster SCHREIBER Sherin Ultrasound - RenalBy: Santos SCHREIBER, On: 08-Jul-2012 Intent Giulia Courtney Criscydney CANDIE Sherin Comments: schedule in November Ultrasound - RenalBy: Santos SCHREIBER, On: 27-May-2012 Intent Giulia Muñiz CNP EKG (14921)By: Crisrachaelfoster SCHREIBER Sherin On: 13-Apr-2012 Intent Giulia Graham CNP Instructions [...] deficiency : DISCONTINUED - Vitamin D Hydroxy (18735) Indication: Vitamin D deficiency Hypertension, benign : DISCONTINUED - METABOLIC PANEL, COMPREHENSIVE (34959) Indication: Hypertension, benign UTI symptoms : How [...] Hypoalbuminemia : Patient Instructions Indication: Hypoalbuminemia Encounters Lab Order On: 01-Jul-2018 14:57 Encounter Diagnosis: Secondary hyperparathyroidism End: 01-Jul-2018 15:00 [facility] Annotation/Addendum On: 01-Jul-2018 14:22 Encounter Diagnosis: Screening mammogram, encounter for End: 01-Jul-2018 14:24 [facility] Office Visit On: 06-May-2018 11:31 Encounter Reason: [...] left anterior neck and left later End: 23-May-2017 16:09 al neck. The pain radiates to [...] eating a variety of foods. 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
--- OUTSIDE RECORDS SUMMARY | 2018-08-16 20:25 | XMS RPT_ITS ---
:1960 Author Organization OHIP Care Team Providers Name Role Phone Giulia Graham Attending Unavailable Giulia Graham Referring Unavailable Giulia Graham Primary Care Unavailable Giulia Graham Attending Unavailable Giulia Graham Referring Unavailable Giulia Graham Primary Care Unavailable ASSESSMENT, HEALTH RISK Attending Unavailable ASSESSMENT, HEALTH RISK Referring Unavailable Giulia Graham Primary Care Unavailable Giulia Graham Attending Unavailable Giulia Graham Referring Unavailable Giulia Graham Primary Care Unavailable Giulia Graham Attending Unavailable Giulia Graham Referring Unavailable Giulia Graham Primary Care Unavailable Giulia Graham Attending Unavailable Giulia Graham Referring Unavailable Giulia Graham Primary Care Unavailable PROBLEMS PROBLEMS DATE TYPE CONDITION / CODE ATTENDING STATUS SOURCE Unknown N25.81 - Secondary Giulia Graham Active [place] [facility] hyperparathyroidism of Community renal origin / Hospital N25.81(ICD-10) Repository Unknown 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 Community / E83.39(ICD-10) Hospital Repository PROCEDURES PROCEDURES No Procedure Records FoundRESULTS RESULTS SCREENING MAMM (CAD), Observed: 07/07/2018 Status: F Source: [place] BIL 7:56 AM [facility] REPOSITORY [facility] Imaging Services [address] [place] [address] SCREENING MAMM (CAD), BILAT MR#: [id number] Acct: [id number] Name: KATIEJENARO J Rep #: [id number] : 1960 F 57 From: Leo Guardado MD PCP: Giulia Graham NP Status: REG CLI Study: SCREENING MAMM (CAD), BILAT Date of Exam: 07/07/18 Exam# [id number] Ordering Dr: Giulia Graham VP OF TECHNOLOGY-C MAMMOGRAPHY - BILATERAL SCREENING REASON FOR EXAM: Female, 57 years old. Routine annual screening examination. PERTINENT HISTORY: Non-contributory. TECHNIQUE: Digital bilateral breast praful (3D mammographic acquisition) in the CC and MLO projections. 2-D mediolateral oblique (MLO) and craniocaudad (CC) views of both breasts were obtained. CAD: Full Field Digital Mammography with Computer Added Detection was performed. COMPARISON: Comparison is made with prior study dated October 13, 2013. FINDINGS: Breast Composition: There are scattered areas of fibroglandular density. There are no dominant masses or suspicious calcifications. Stable small bilateral axillary lymph nodes. No other significant abnormalities are identified. There has been no significant change since the prior study. BI/SCREENING MAMM (CAD), BILAT IMPRESSION: Stable bilateral screening mammogram. Yearly follow-up mammogram recommended. (A) ASSESSMENT CATEGORY: BIRADS Category 2: Benign. A letter regarding these results will be sent to the patient by the facility within 30 days. Approximately 10% of breast cancers are not detected by mammography. A normal mammogram should not delay biopsy of a clinically suspicious abnormality. [id number] Electronically Signed: Leo Guardado MD at 15:01 EST Tel [phone], Service support , CC: Giulia Graham NP [place] Worker: Signed PTHIN Collected: 07/01/2018 Status: F Source: [place] 8:33 AM [facility] REPOSITORY TYPE CODE TESTS RESULT OUT OF RANGE REFERENCE UNITS LAB L509.1000 18.4-80.1 pg/mL High PTHIN 85.5 Performed By: #### L509.1000 #### [facility] [address] [place], [place], [address] VITAMIN D,25 HYDROXY Collected: 07/01/2018 Status: F Source: [place] 8:33 AM [facility] REPOSITORY TYPE CODE TESTS RESULT OUT OF RANGE REFERENCE UNITS LAB L506.1000 29.95-100.01 ng/mL Normal Vitamin D 34.9 25-OH Result Comment: Vitamin D 25(OH) Status Range Deficiency <20 ng/mL (50nmol/L) Insuffciency 20 - 30 ng/mL (50 - 75 nmol/L) Sufficiency 30 - 100 ng/mL (75 - 250 nmol/L) Toxicity >100 ng/mL (>250 nmol/L) Performed By: #### L506.1000 #### [facility] [address] [place], [place], [address] PARATHYROID SCAN Observed: 04/29/2018 Status: F Source: [place] 9:47 AM [facility] REPOSITORY [facility] Imaging Services [address] [place] [address] Parathyroid Scan MR#: [id number] Acct: [id number] Name: JENARO WILSON Rep #: [id number] : 1960 F 57 From: Tobias Nunez DO PCP: Giulia Graham NP Status: REG CLI Study: Parathyroid Scan Date of Exam: 04/29/18 Exam# [id number] Ordering Dr: Giulia Graham VP OF TECHNOLOGY-C CLINICAL: 57-year-old female with history of elevation of the serum parathyroid hormone level. 99m Tc SESTAMIBI DUAL PHASE PARATHYROID SCINTIGRAPHY COMPARISON: None available FINDINGS: Following the intravenous administration of 26.3 mCi of 99m Tc sestamibi, image acquisitions of the anterior neck at approximately 20 minutes and 2.0 hours post radiopharmaceutical provision reveal: 1. Immediate static blood pool acquisitions demonstrate uniform distribution of the radiopharmaceutical throughout both lobes of a U-shaped thyroid gland. 2. Delayed images depict symmetric near complete washout of the radiotracer from the previously defined right-left thyroid colloid. No focal areas of persistent radiopharmaceutical concentration are identified. NM/Parathyroid Scan IMPRESSION: 1. NEGATIVE 99m Tc SESTAMIBI PARATHYROID IMAGING DUAL PHASE EXAMINATION. 2. There is no definitive typical scintigraphic evidence of parathyroid adenoma on the current evaluation. Electronically Signed: Tobias Nunez DO at 8:07 EDT Tel , Service support , CC: Giulia Graham NP [place] Worker: Signed PHOSPHORUS Collected: 04/12/2018 Status: F Source: [place] 10:56 AM [facility] REPOSITORY TYPE CODE TESTS RESULT OUT OF RANGE REFERENCE UNITS LAB L501.2300 2.5-4.9 mg/dL Normal PHOS 3.4 Performed By: #### L501.2300 #### [facility] [address] [place], [address] VITAMIN D,25 HYDROXY Collected: 04/12/2018 Status: F Source: [place] 10:56 AM [facility] REPOSITORY TYPE CODE TESTS RESULT OUT OF REFERENCE UNITS RANGE LAB L506.1000 29.95-100.01 ng/mL Low Vitamin D 24.8 25-OH Result Comment: Vitamin D 25(OH) Status Range Deficiency <20 ng/mL (50nmol/L) Insuffciency 20 - 30 ng/mL (50 - 75 nmol/L) Sufficiency 30 - 100 ng/mL (75 - 250 nmol/L) Toxicity >100 ng/mL (>250 nmol/L) Performed By: #### L506.1000 #### [facility] [address] [place], [address] PTHIN Collected: 04/12/2018 Status: F Source: [place] 10:56 AM [facility] REPOSITORY TYPE CODE TESTS RESULT OUT OF RANGE REFERENCE UNITS LAB L509.1000 18.4-80.1 pg/mL High PTHIN 101.7 Performed By: #### L509.1000 #### [facility] [place], [address] VITAMIN D,25 HYDROXY Collected: 01/24/2018 Status: F Source: [place] 6:43 AM [facility] REPOSITORY TYPE CODE TESTS RESULT OUT OF RANGE REFERENCE UNITS LAB L506.1000 29.95-100.01 ng/mL Normal Vitamin D 30.0 25-OH Result Comment: Vitamin D 25(OH) Status Range Deficiency <20 ng/mL (50nmol/L) Insuffciency 20 - 30 ng/mL (50 - 75 nmol/L) Sufficiency 30 - 100 ng/mL (75 - 250 nmol/L) Toxicity >100 ng/mL (>250 nmol/L) Performed By: #### L506.1000 #### [facility] [address] [place], [address] PTHIN Collected: 01/24/2018 Status: F Source: [place] 6:43 AM [facility] REPOSITORY TYPE CODE TESTS RESULT OUT OF RANGE REFERENCE UNITS LAB L509.1000 18.4-80.1 pg/mL High PTHIN 93.6 Performed By: #### L509.1000 #### [facility] [address] [place], [address] CBC, EMPLOYEE Collected: 01/13/2018 Status: F Source: [place] 6:34 AM [facility] REPOSITORY TYPE CODE TESTS RESULT OUT OF RANGE REFERENCE UNITS LAB L100.1000 4.4-11.0 K/mm3 Normal WBC 5.4 LAB L100.1200 4.2-5.4 M/mm3 Normal RBC 4.29 LAB L100.1300 12.0-15.0 g/dl Normal HGB 13.0 LAB L100.1400 37-47 % Normal HCT 38.8 LAB L100.1500 81-99 fL Normal MCV 90.4 LAB L100.1600 27.0-32.0 pg Normal MCH 30.3 LAB L100.1700 32-36 g/gl Normal MCHC 33.5 LAB L100.1810 11.6-14.6 % Normal RDW CV 12.6 LAB L100.1820 35.1-43.9 fl Normal RDW SD 41.4 LAB L100.1900 150-450 K/mm3 Normal PLT 309 LAB L100.2000 6.2-12.0 fl Normal MPV 10.4 LAB L100.2110 47-70 % Normal NEUT% 65.3 LAB L100.2210 19-41 % Normal LY% 27.4 LAB L100.2310 0-10 % Normal MONO% 4.1 LAB L100.2410 0-5 % Normal EO% 2.8 LAB L100.2510 0-1 % Normal BASO% 0.4 LAB L100.2620 2.0-7.7 X10 3/uL Normal Absolute Neut 3.5 LAB L100.2720 0.83-4.51 X10 3/ul Normal Absolute Lymph 1.47 Performed By: #### L100.0200 #### [facility] [address] [place], [place], [address] EMPLOYEE PROFILE Collected: 01/13/2018 Status: F Source: [place] 6:34 AM [facility] REPOSITORY TYPE CODE TESTS RESULT OUT OF RANGE REFERENCE UNITS LAB L501.0100 74-106 mg/dL Normal GLU 95 Result Comment: Please note revised GLUCOSE reference range effective 2017. LAB L501.1000 7-18 mg/dL Normal BUN 17 LAB L501.1100 0.55-1.02 mg/dL Normal CREAT,SERUM 0.69 Result Comment: The validity of the calculated GFR AND GFRAA in patients over 70 years has not been determined. Clinical correlation is essential. LAB L501.1110 >60 mL/min Normal EST GFR 94 Result Comment: Non- GFR Calc LAB L501.1115 >60 mL/min Normal EST GFR - AA 113 Result Comment: GFR Calc LAB L501.1300 10-20 RATIO High BUN/CRE 24.7 LAB L501.1400 2.6-6.0 mg/dL Normal URIC 4.5 Result Comment: The drugs N-Acetylcysteine and Metamizole may falsely depress this assay. LAB L501.1500 6.4-8.2 g/dL Normal T PROT 7.1 LAB L501.1800 3.2-5.0 g/dL Normal ALB 3.5 LAB L501.1950 2.2-4.2 g/dL Normal GLOB 3.6 LAB L501.2000 0.9-2.4 RATIO Normal A/G 1.0 LAB L501.2200 8.5-10.1 mg/dL Normal CA 8.9 LAB L501.2300 2.5-4.9 mg/dL Low PHOS 2.4 LAB L501.4100 15-37 U/L Normal AST 22 LAB L501.4305 45-117 U/L Normal ALK P 64 LAB L501.4405 13-56 U/L Normal ALT 31 LAB L501.4600 0.20-1.00 mg/dL High T BILI 1.10 LAB L501.4700 0.00-0.30 mg/dL Normal D BILI 0.18 LAB L501.4900 200 mg/dL Normal CHOL 169 Result Comment: <200 mg/dL Desirable 200-240 mg/dL Borderline >240 mg/dL High Risk LAB L501.5000 mg/dL Normal TRIG 85 Result Comment: The drugs N-Acetylcysteine and Metamizole may falsely depress this assay. Serum Triglycerides Reference Interval Normal <150 mg/dL Borderline high 150 - 199 mg/dL High 200 - 499 mg/dL Very High > or = 500 mg/dL LAB L501.5300 136-145 mmol/L Normal NA 142 LAB L501.5600 3.5-5.1 mmol/L Normal K 3.8 LAB L501.5900 98-107 mmol/L High CL 111 LAB L501.6100 21.0-32.0 mmol/L Normal CO2 25.0 LAB L501.6200 5-15 Normal 6 GAP LAB L501.6400 mg/dL Normal HDL 60 Result Comment: The drugs N-Acetylcysteine and Metamizole may falsely depress this assay. Reference Range HDL <40 mg/dL Low HDL Cholesterol HDL >or= 60 mg/dL High HDL Cholesterol LAB L501.6475 Normal CHOL:HDL 2.80 LAB L501.6500 0-130 mg/dL Normal LDL 92 LAB L501.6600 5-40 mg/dL Normal VLDL 17 LAB L504.2610 84-246 U/L Normal LDH 184 Performed By: #### L500.2900 #### [facility] [address] [place], [place], [address] URINALYSIS, EMPLOYEE Collected: 01/13/2018 Status: F Source: [place] 6:34 AM [facility] REPOSITORY TYPE CODE TESTS RESULT OUT OF RANGE REFERENCE UNITS LAB L400.3000 Yellow COLOR Normal Yellow LAB L400.3050 Clear Normal CLARITY Clear LAB L400.3200 Normal mg/dl Normal GLUCOSE, UR Normal LAB L400.3300 Negative mg/dL Normal BILIRUBIN URINE Negative LAB L400.3400 Negative mg/dl Normal KETONE UR Negative LAB L400.3465 1.002-1.030 Normal SP.GR. DIPSTX 1.015 LAB L400.3550 5.0 - 8.0 pH UR Normal 6.0 LAB L400.3600 Negative mg/dl PROT Normal DIPSTX Negative LAB L400.3700 Normal mg/dl Normal UROBILI Normal LAB L400.3750 Negative Normal NITRITE UR Negative LAB L400.3780 Negative /ul High 25 OCCULT BLOOD-UR LAB L400.3800 Negative /ul LEUK Normal ESTERASE Negative Performed By: #### L400.0100 #### [facility] [address] [place], [place], [address] NICOTINE URINE DRUG Collected: 01/13/2018 Status: F Source: [place] SCREEN 6:34 AM [facility] REPOSITORY TYPE CODE TESTS RESULT OUT OF RANGE REFERENCE UNITS LAB L505.6250 TO BE Normal CONFIRMED Result Comment: CONFIRMATORY TESTING FOR ALL POSITIVE URINE DRUG SCREEN RESULTS WILL ONLY BE SENT OUT UPON PHYSICIAN ORDER. The results of Urine Drug Screen methods provide only preliminary analytical test results. A more specific alternate chemical method must be used in order to obtain a confirmed analytical result. Gas chromatography/mass spectrometery (GC/MS) is the preferred confirmatory method. Clinical consideration and professional judgement should be applied to any drug of abuse test result, particularly when preliminary positive results are used. LAB L505.6270 <200 ng/mL Normal COT DRG Negative SCREEN Result Comment: Cotinine is the first-stage metabolite of Nicotine. Performed By: #### L505.6240 #### [facility] [address] [place], [place], [address] ALLERGIES ALLERGIES DATE TYPE / CODE NAME / CODE REACTION SEVERITY SOURCE 06/28/2017 Drug No Known Unknown [facility] Allergy/4160 Allergies/F00 Hospital 05864(SNOMED 2065868(RXNOR Repository CT) M) ENCOUNTERS ENCOUNTERS ADMIT/DISCHARGE ACCOUNT ADMITTING ENCOUNTER LOCATION SOURCE NUMBER CLASS 07/07/2018 [id number] [facility] Repository 07/01/2018 [id number] [facility] 0 [facility] ing:LAB Repository 04/29/2018 [id number] [facility] 5 [facility] ing:NM Repository 04/12/2018 [id number] [facility] 4 [facility] ing:LAB Repository 01/24/2018 [id number] Ambulatory [facility] 3 [facility] ing:LAB Repository 01/13/2018 [id number] [facility] 5 [facility] ing:EMPH Repository PAYERS PAYERS ENCOUNTER GUARANTOR PAYER SUBSCRIBER SOURCE 07/07/2018 KIMBERLY D Primary Insurance:[facility] JENARO Jimenez [place] [id number] [facility]LY [facility] BOWSERDOB: [facility] [id number] Hospital [address]Ffy: [phone]) Number: Repository [phone] () [id number] Date:7313-06-66CS [address] [address], [place] [address]XZ: CHECK WEBSITE 07/07/2018 Secondary NOT GIVENUNK [place] Insurance:SELF PAY [facility] Number: Effective Repository Date:2018-05-21 07/01/2018 KIMBERLY D Primary Insurance:[facility] JENARO [place] [id number] [facility] BOWSERDOB: [facility] [place] [id number] Hospital [address]Nka: [phone]) Number: Repository [phone] () [id number] Date:6416-47-01[address] [address], [place] [address]YK: CHECK WEBSITE 07/01/2018 Secondary NOT GIVENUNK [place] Insurance:SELF PAY [facility] Number: Effective Repository Date:2018-07-01 04/29/2018 KIMBERLY D Primary Insurance:[facility] JENARO Jimenez [place] [id number] [facility] [id number] Hospital [address]Uwb: (330) Number: Repository [phone] () [id number] Date:1236-41-71[address] [address], [place] [address]NR: CHECK WEBSITE 04/29/2018 Secondary NOT GIVENUNK [place] Insurance:SELF PAY [facility] Number: Effective Repository Date:2018-04-15 04/12/2018 KIMBERLY D Primary Insurance:[facility] JENARO [place]oster [id number] [facility] [id number] Hospital [address]Auh: (330) Number: Repository [phone] () [id number] Date:2761-81-32ZB [address] [address], [place] [address]SO: CHECK WEBSITE 04/12/2018 Secondary NOT GIVENUNK [place] Insurance:SELF PAY [facility] Number: Effective Repository Date:2018-04-12 01/24/2018 Kimberly D Primary Insurance:[facility] JENARO Rodriguez [id number] Critical access hospitalSERDOB: [facility] [id number] Hospital [address]Jhc: [phone]) Number: Repository [phone] () [id number] Date:6926-97-12[address] [address], [place] [address]PU: CHECK WEBSITE 01/24/2018 Secondary NOT GIVENUNK [place] Insurance:SELF PAY [facility] Number: Effective Repository Date:2018-01-24 01/13/2018 Kimberly D Primary NOT GIVENUNK [place] [id number] Rajesh Insurance:SELF PAY [facility] [address]Tob: (330) Number: Effective Repository [phone] () Date:2018-01-13
== END ==
PROVIDERS: Family Provider Nurse Practitioner; PCP Nurse Practitioner; Referring Provider Nurse Practitioner; Visit Provider Nurse Practitioner
DX: N25.81 Secondary hyperparathyroidism of renal origin (principal)
CPT/HCPCS: 36415; 82306; 83970

== ENCOUNTER → 2018-07-07 07:52 | Outpatient (CLI) | payer OTHER, SELFPAY ==
[2017-06-28 07:13] VITALS: BMI 29.5
--- NOTE | 2018-07-07 07:56 | BI_ITS ---
MAMMOGRAPHY - BILATERAL SCREENING REASON FOR EXAM: Female, 57 years old. Routine annual screening examination. PERTINENT HISTORY: Non-contributory. TECHNIQUE: Digital bilateral breast praful (3D mammographic acquisition) in the CC and MLO projections. 2-D mediolateral oblique (MLO) and craniocaudad (CC) views of both breasts were obtained. CAD: Full Field Digital Mammography with Computer Added Detection was performed. COMPARISON: Comparison is made with prior study dated October 13, 2013. FINDINGS: Breast Composition: There are scattered areas of fibroglandular density. There are no dominant masses or suspicious calcifications. Stable small bilateral axillary lymph nodes. No other significant abnormalities are identified. There has been no significant change since the prior study. BI/SCREENING MAMM (CAD), BILAT IMPRESSION: Stable bilateral screening mammogram. Yearly follow-up mammogram recommended. (A) ASSESSMENT CATEGORY: BIRADS Category 2: Benign. A letter regarding these results will be sent to the patient by the facility within 30 days. Approximately 10% of breast cancers are not detected by mammography. A normal mammogram should not delay biopsy of a clinically suspicious abnormality. [id number] Electronically Signed: Leo Guardado MD at 15:01 EST Tel [phone], Service support ,
== END ==
PROVIDERS: Family Provider Nurse Practitioner; PCP Nurse Practitioner; Referring Provider Nurse Practitioner; Visit Provider Nurse Practitioner
DX: Z12.31 Encounter for screening mammogram for malignant neoplasm of breast (principal)
CPT/HCPCS: 77063; 77067

== ENCOUNTER → 2018-09-08 08:15 | Outpatient (CLI) | payer OTHER, SELFPAY ==
[2017-06-28 07:13] VITALS: BMI 29.5
[2018-09-08 09:47] LABS: Vitamin D,25 Hydroxy 21.8 ng/mL (29.95-100.01)
[2018-09-08 09:49] LABS: PTHIN 90.8 pg/mL (18.4-80.1)
== END ==
PROVIDERS: Family Provider Nurse Practitioner; PCP Nurse Practitioner; Referring Provider Nurse Practitioner; Visit Provider Nurse Practitioner
DX: N25.81 Secondary hyperparathyroidism of renal origin (principal)
CPT/HCPCS: 36415; 82306; 83970

== ENCOUNTER → 2018-10-27 09:03 | Outpatient (CLI) | payer OTHER, SELFPAY | PROVIDERS: Family Provider Nurse Practitioner; PCP Nurse Practitioner; Referring Provider Nurse Practitioner; Visit Provider Nurse Practitioner | DX: Z00.00 Encounter for general adult medical examination without abnormal findings (principal) ==

== ENCOUNTER → 2018-10-31 06:08 | Outpatient (CLI) | payer OTHER, SELFPAY ==
[2018-10-31 09:38] LABS: Vitamin D,25 Hydroxy 20.5 ng/mL (29.95-100.01)
== END ==
PROVIDERS: Family Provider Nurse Practitioner; PCP Nurse Practitioner; Referring Provider Nurse Practitioner; Visit Provider Nurse Practitioner
DX: E55.9 Vitamin D deficiency, unspecified (principal)
CPT/HCPCS: 36415; 82306

== ENCOUNTER → 2018-12-26 06:25 | Outpatient (CLI) | payer OTHER, SELFPAY ==
[2017-06-28 07:13] VITALS: BMI 29.5
[2018-12-26 06:30] LABS: Red Blood Cells-Urine 0 SEEN /hpf (0-5); White Blood Cells 0 SEEN /hpf (0-5)
[2018-12-26 07:24] LABS: Color, Urine Yellow (Yellow); Glucose, Dipstick Normal (Normal); Ketone-Dipstick 5 mg/dl (Negative); Leukocyte Esterase-Dipstick 25 /ul (Negative); Nitrite-Dipstick Negative (Negative); Occult Blood-Urine Negative /ul (Negative); Protein-Dipstick 15 mg/dl (Negative); Specific Gravity, Urine 1.025 (1.002-1.030); Urine Bilirubin Dipstick Negative (Negative); Urine Clarity Sl. Cloudy (Clear); Urine Urobilinogen 1 mg/dl (Normal)
[2018-12-26 07:26] LABS: Absolute Lymphocyte Count 1.73 X10^3/ul (0.83-4.51); Absolute Neutrophil Count 3.7 X10^3/uL (2.0-7.7); Basophil# 0.05 X10^3/uL; Basophil% 0.8 % (0-1); Eosinophils% 3.3 % (0-5); Hematocrit 41.5 % (37-47); Hemoglobin 14.2 g/dl (12.0-15.0); Lymphocyte # 1.73 X10^3/ul (4.0); Lymphocyte % 28.1 % (19-41); Mean Corp Hgb Conc 34.2 g/gl (32-36); Mean Corpuscular Hgb 30.9 pg (27.0-32.0); Mean Corpuscular Volume 90.2 fL (81-99); Mean Platelet Vol. 10.4 fl (6.2-12.0); Monocyte% 8.1 % (0-10); Neutrophil # 3.66 X10^3/uL (2.7-7.7); Neutrophil % 59.5 % (47-70); Platelet Count 370 K/mm3 (150-450); RBC Distribution Width CV 12.6 % (11.6-14.6); RBC Distribution Width SD 41.1 fl (35.1-43.9); White Blood Count 6.2 K/mm3 (4.4-11.0)
[2018-12-26 07:30] LABS: Bacteria RARE /hpf (None Seen); Mucous, Urine RARE /hpf (<or=2+); Squamous Epithelial Cells - UA 0-5 SEEN /hpf (5-10)
[2018-12-26 07:56] LABS: POSITIVE COUNT NO; POSITIVE DIFFERENTIAL NO; POSITIVE MORPHOLOGY NO
[2018-12-26 08:51] LABS: PTHIN 198.2 pg/mL (18.4-80.1); Vitamin D,25 Hydroxy 30.5 ng/mL (29.95-100.01)
[2018-12-26 12:05] LABS: ALB/GLOB Ratio 0.9 RATIO (0.9-2.4); AST(SGOT) 25 U/L (15-37); Alanine Aminotransfer ALT/SGPT 41 U/L (13-56); Albumin, Serum 3.3 g/dL (3.2-5.0); Alkaline Phosphatase 78 U/L (45-117); Anion Gap 10 (5-15); BUN 15 mg/dL (7-18); BUN/Creat Ratio 20.5 RATIO (10-20); Chloride 107 mmol/L (98-107); Cholesterol 173 mg/dL (200); Creatinine, Serum 0.73 mg/dL (0.55-1.02); EST Glomerular Filtration Rate 87 mL/min (>60); Est Glom Filt Rate - Afr Amer 105 mL/min (>60); Follicle Stimulating Hormone 31.2 mIU/mL; Globulin 3.7 g/dL (2.2-4.2); Glucose 85 mg/dL (74-106); High Density Lipoprotein 60 mg/dL; Luteinizing Hormone 12.3 mIU/mL; Phosphorus 2.5 mg/dL (2.5-4.9); Potassium 4.1 mmol/L (3.5-5.1); Sodium Level 142 mmol/L (136-145); Thyroid Stim Hormone (TSH) 3.17 uIU/mL (0.358-3.74); Triglycerides 139 mg/dL; Very Low Density Lipoprotein 28 mg/dL (5-40)
== END ==
PROVIDERS: Family Provider Nurse Practitioner; PCP Nurse Practitioner; Referring Provider Nurse Practitioner; Visit Provider Nurse Practitioner
DX: I10 Essential (primary) hypertension (principal); N25.81 Secondary hyperparathyroidism of renal origin; E55.9 Vitamin D deficiency, unspecified; N95.1 Menopausal and female climacteric states; R82.90 Unspecified abnormal findings in urine
CPT/HCPCS: 36415; 80053; 80061; 81001; 82306; 83001; 83002; 83970; 84100; 84443; 85025; 87086; 87088

== ENCOUNTER → 2019-02-16 08:02 | Outpatient (CLI) | payer OTHER, SELFPAY ==
[2019-02-16 09:09] LABS: Vitamin D,25 Hydroxy 33.6 ng/mL (29.95-100.01)
== END ==
PROVIDERS: Family Provider Nurse Practitioner; PCP Nurse Practitioner; Referring Provider Nurse Practitioner; Visit Provider Nurse Practitioner
DX: E55.9 Vitamin D deficiency, unspecified (principal); E34.9 Endocrine disorder, unspecified
CPT/HCPCS: 36415; 82306; 83970

== ENCOUNTER → 2019-02-18 09:08 | Outpatient (CLI) | payer OTHER, SELFPAY ==
[2019-02-18 10:35] LABS: Magnesium 1.9 mg/dL (1.6-2.6)
== END ==
PROVIDERS: Family Provider Nurse Practitioner; PCP Nurse Practitioner; Referring Provider Nurse Practitioner; Visit Provider Nurse Practitioner
DX: N25.81 Secondary hyperparathyroidism of renal origin (principal)
CPT/HCPCS: 36415; 83735

== ENCOUNTER → 2019-05-29 06:10 | Outpatient (CLI) | payer OTHER, SELFPAY ==
[2019-05-29 07:43] LABS: Luteinizing Hormone 23.8 mIU/mL
[2019-05-29 08:48] LABS: PTHIN 142.7 pg/mL (18.4-80.1)
== END ==
PROVIDERS: Family Provider Nurse Practitioner; PCP Nurse Practitioner; Referring Provider Nurse Practitioner; Visit Provider Nurse Practitioner
DX: E34.9 Endocrine disorder, unspecified (principal); N91.0 Primary amenorrhea
CPT/HCPCS: 36415; 82306; 83001; 83002; 83970

== ENCOUNTER → 2019-08-10 13:30 | Outpatient (CLI) | payer OTHER, SELFPAY ==
[2019-08-01 08:08] VITALS: BMI 29.5
--- NOTE | 2019-08-10 13:32 | BD_ITS ---
STUDY: DUAL ENERGY X-RAY ABSORPTIOMETRY / DXA REASON FOR EXAM: Female, 59 years old. Age if juanjo- 59. Pat is 189.4# and 63.5 and quot; loss of 1-1.5 and quot; per pat. Little to no exercising. TECHNIQUE: Bone Mineral Density (BMD) measurements of lumbar spine and bilateral hips were obtained. COMPARISON: None. FINDINGS: Lumbar Spine (L1-L4): g/cm2 (1.222) / T-score (0.3) / Z-score (1.4) Findings are suggestive of normal bone density with a low fracture risk. Left Femur Total: g/cm2 (1.109) / T-score (0.8) / Z-score (1.6) Left Femoral Neck: g/cm2 (1.110) / T-score (0.5) / Z-score (1.7) Right Femur Total: g/cm2 (1.092) / T-score (0.7) / Z-score (1.5) Right Femoral Neck: g/cm2 (1.098) / T-score (0.4) / Z-score (1.6) BD/Dexa Bone Density Study IMPRESSION: The patient is considered normal as outlined below according to World [place] G Organization (WHO) criteria with a low fracture risk. Reference Information: The T-score is the number of standard deviations above or below the standard which is normal for young adults at their peak bone mineral density. The World Health Organization (WHO) interprets the T-scores as follows: Above -1 Normal bone density Between -1 and -2.5 Osteopenia Equal to / or below -2.5 Osteoporosis As a practical clinical guideline, osteopenia may be graded as follows: Mild -1 through -1.5 Moderate -1.6 through -2.0 Severe -2.1 through -2.4 The Z-score is the number of standard deviations above or below age-matched controls. A Z-score of less than -1.5 would be considered abnormal. References: 1. NIH Osteoporosis and Related Bone Diseases http://www.osteo.org 2. International Society for Clinical Densitometry http://www.iscd.org 3. National Osteoporosis Foundation http://www.nof.org Electronically Signed: Leo Guardado, at 10:42 EST , Service support ,
== END ==
PROVIDERS: Family Provider Nurse Practitioner; PCP Nurse Practitioner; Referring Provider Internal Medicine Endocrinology, Diabetes & Metabolism; Visit Provider Internal Medicine Endocrinology, Diabetes & Metabolism
DX: E21.0 Primary hyperparathyroidism (principal); Z78.0 Asymptomatic menopausal state
CPT/HCPCS: 77080

== ENCOUNTER → 2019-09-29 06:02 | Outpatient (CLI) | payer OTHER, SELFPAY ==
[2019-08-01 08:08] VITALS: BMI 29.5
[2019-09-29 07:36] LABS: Anion Gap 6 (5-15); BUN 18 mg/dL (7-18); BUN/Creat Ratio 27.1 RATIO (10-20); Chloride 111 mmol/L (98-107); Creatinine, Serum 0.66 mg/dL (0.55-1.02); Glucose 95 mg/dL (74-106); Potassium 3.6 mmol/L (3.5-5.1); Sodium Level 141 mmol/L (136-145)
[2019-09-29 09:18] LABS: PTHIN 143.7 pg/mL (18.4-80.1)
[2019-09-29 16:44] LABS: Calcium,Total 9.5 mg/dL (8.5-10.1)
== END ==
PROVIDERS: PCP Nurse Practitioner; Referring Provider Internal Medicine Endocrinology, Diabetes & Metabolism; Visit Provider Internal Medicine Endocrinology, Diabetes & Metabolism
DX: E83.52 Hypercalcemia (principal); E55.9 Vitamin D deficiency, unspecified; E21.0 Primary hyperparathyroidism
CPT/HCPCS: 36415; 80047; 82306; 82310; 83970

== ENCOUNTER → 2020-04-08 14:38 | Outpatient (CLI) | payer OTHER, SELFPAY ==
[2020-04-08 14:38] VITALS: BMI 32.1
[2020-04-08 17:13] LABS: Vitamin D,25 Hydroxy 50.4 ng/mL
[2020-04-08 17:24] LABS: Calcium,Total 9.7 mg/dL (8.5-10.1); Phosphorus 3.3 mg/dL (2.5-4.9); Thyroid Stim Hormone (TSH) 1.76 uIU/mL (0.358-3.74)
[2020-04-09 08:43] LABS: PTHIN 92.9 pg/mL (18.4-80.1)
== END ==
PROVIDERS: PCP Nurse Practitioner; Referring Provider Internal Medicine Endocrinology, Diabetes & Metabolism; Visit Provider Internal Medicine Endocrinology, Diabetes & Metabolism
DX: E55.9 Vitamin D deficiency, unspecified (principal); E21.3 Hyperparathyroidism, unspecified; R53.83 Other fatigue
CPT/HCPCS: 36415; 82306; 82310; 83970; 84100; 84443

== ENCOUNTER → 2020-05-28 15:48 | Outpatient (CLI) | payer OTHER, SELFPAY ==
[2020-04-08 14:40] VITALS: BMI 29.5
--- NOTE | 2020-05-28 15:50 | RAD_ITS ---
STUDY: X-RAY - RIGHT SHOULDER REASON FOR EXAM: Right shoulder pain with abduction and external rotation. TECHNIQUE: 5 view(s) of the shoulder. COMPARISON: None. FINDINGS: Normal glenohumeral articulation. There is mild acromioclavicular arthrosis. Normal acromion. Normal humeral head and visualized proximal humerus. The soft tissue structures are unremarkable. Normal visualized pulmonary apex. RAD/Shoulder min 2 Views IMPRESSION: Mild acromioclavicular arthrosis. Electronically Signed: Rafael Medina MD at 8:30 EST Tel , Service support ,
== END ==
PROVIDERS: PCP Nurse Practitioner; Referring Provider Nurse Practitioner; Visit Provider Nurse Practitioner
DX: M79.601 Pain in right arm (principal)
CPT/HCPCS: 73030

== ENCOUNTER → 2020-06-27 17:30 | Outpatient (CLI) | payer OTHER, SELFPAY ==
[2020-06-20 14:20] VITALS: BMI 30.7
--- NOTE | 2020-06-27 17:31 | MRI_ITS ---
STUDY: MRI RIGHT SHOULDER REASON FOR EXAM: Female, 59 years old. right shoulder pain, painful range of motion, no specific injury TECHNIQUE: Standardized fat and water weighted pulse sequences were obtained in all 3 orthogonal planes. COMPARISON: X-ray dated 05/28/2020. FINDINGS: Moderate supraspinatus tendinosis with low-grade partial-thickness supraspinatus articular surface tear (coronal image 14 series 7) measuring 5 mm. Moderate infraspinatus tendinosis. Moderate subscapularis tendinosis. Normal teres minor tendon. No muscle atrophy. Moderate intracapsular long biceps tendinosis. Fraying of the biceps labral anchor. Labral degeneration with tiny anterior labral tear (axial image 8 series 3). Capsular ligaments intact. Normal rotator cuff interval. Mild/moderate glenohumeral cartilage loss. Moderate acromioclavicular joint arthrosis. Anterior interval preserved. No acute fracture. No acute dislocation. No acute bone destruction. Small glenohumeral joint effusion. Mild subacromial subdeltoid bursitis. Intact coracohumeral and coracoacromial ligaments. Normal quadrilateral space. Normal axillary space. Normal deltoid muscle. Normal trapezius muscle. MRI/Upper Ext Joint Only(Routine) IMPRESSION: Moderate rotator cuff tendinosis with low-grade partial-thickness articular surface tear Moderate intracapsular long biceps tendinosis with fraying of the biceps labral anchor Labral degeneration with tiny anterior labral tear Glenohumeral and AC joint arthrosis Small glenohumeral effusion and mild subacromial subdeltoid bursitis Electronically Signed: Paul Trinidad DO at 13:10 EST Tel , Service support ,
== END ==
PROVIDERS: PCP Nurse Practitioner; Referring Provider Orthopaedic Surgery; Visit Provider Orthopaedic Surgery
DX: M19.011 Primary osteoarthritis, right shoulder (principal); M25.511 Pain in right shoulder
CPT/HCPCS: 73221

== ENCOUNTER → 2021-03-25 06:13 | Outpatient (CLI) | payer OTHER, SELFPAY ==
[2021-03-25 07:54] LABS: Microalbumin,Random Urine 23.7 mg/L (NO RANGE EST.); Microalbumin:Creatinine Ratio 10.2 mg/g CRE (<30 mg/g CRE)
[2021-03-25 08:07] LABS: Thyroid Stim Hormone (TSH) 2.25 uIU/mL (0.358-3.74)
[2021-03-25 08:23] LABS: PTHIN 137.4 pg/mL (18.4-80.1)
[2021-03-25 08:25] LABS: Vitamin D,25 Hydroxy 55.4 ng/mL
[2021-03-28 09:08] LABS: LDH 247 IU/L (119-226); LDH Fraction 1 20 % (17-32); LDH Fraction 2 41 % (25-40); LDH Fraction 3 24 % (17-27); LDH Fraction 4 8 % (5-13); LDH Fraction 5 7 % (4-20)
== END ==
PROVIDERS: PCP Nurse Practitioner; Referring Provider Nurse Practitioner; Visit Provider Nurse Practitioner
DX: Z13.29 Encounter for screening for other suspected endocrine disorder (principal); R74.02 Elevation of levels of lactic acid dehydrogenase [LDH]; E55.9 Vitamin D deficiency, unspecified; N25.81 Secondary hyperparathyroidism of renal origin; I10 Essential (primary) hypertension
CPT/HCPCS: 36415; 82043; 82306; 82570; 83615; 83625; 83970; 84443

== ENCOUNTER → 2021-04-02 13:27 | Outpatient (CLI) | payer OTHER, SELFPAY ==
--- NOTE | 2021-04-02 13:29 | BI_ITS ---
MAMMOGRAPHY - BILATERAL SCREENING REASON FOR EXAM: Female, 60 years old. Routine annual screening examination. PERTINENT HISTORY: Non-contributory. TECHNIQUE: Digital bilateral breast stephani (3D mammographic acquisition) in the CC and MLO projections. 2-D mediolateral oblique (MLO) and craniocaudad (CC) views of both breasts were obtained. CAD: Full Field Digital Mammography with Computer Added Detection was performed. COMPARISON: Comparison is made with prior study 07/07/2018 and 10/13/2013. FINDINGS: Breast Composition: There are scattered areas of fibroglandular density. There are no dominant masses or suspicious calcifications. Stable small benign appearing bilateral axillary lymph nodes. No other significant abnormalities are identified. There has been no significant change since the prior study. BI/SCRN MAMM (CAD)W/STEPHANI BILAT IMPRESSION: Stable bilateral screening mammogram. Yearly follow-up mammogram recommended. (A) ASSESSMENT CATEGORY: BIRADS Category 2: Benign. A letter regarding these results will be sent to the patient by the facility within 30 days. Approximately 10% of breast cancers are not detected by mammography. A normal mammogram should not delay biopsy of a clinically suspicious abnormality. [id number] Electronically Signed: Leo Guardado MD at 14:15 EDT , Service support ,
== END ==
PROVIDERS: PCP Nurse Practitioner; Referring Provider Nurse Practitioner; Visit Provider Nurse Practitioner
DX: Z12.31 Encounter for screening mammogram for malignant neoplasm of breast (principal)
CPT/HCPCS: 77063; 77067

== ENCOUNTER → 2021-05-12 | Outpatient (CLI) | payer OTHER, SELFPAY ==
[2021-05-12 09:37] LABS: 24HR UR TOTAL VOLUME 1500 ml; Calcium Urine pH Range 1; Urine Calcium (Random) 12.4 (Not Estab.)
== END | disposition home or self-care (01) ==
LOC: LABSPEC 08:12
PROVIDERS: PCP Nurse Practitioner; Visit Provider Internal Medicine Endocrinology, Diabetes & Metabolism
DX: E21.3 Hyperparathyroidism, unspecified (principal)
CPT/HCPCS: 81050; 82340

== ENCOUNTER → 2021-06-10 05:52 | Outpatient (CLI) | payer OTHER, SELFPAY ==
[2021-06-10 07:07] LABS: ALB/GLOB Ratio 0.9 RATIO (0.9-2.4); AST(SGOT) 22 U/L (15-37); Alanine Aminotransfer ALT/SGPT 32 U/L (13-56); Albumin, Serum 3.3 g/dL (3.2-5.0); Alkaline Phosphatase 87 U/L (45-117); Anion Gap 7 (5-15); BUN 22 mg/dL (7-18); BUN/Creat Ratio 34.9 RATIO (10-20); Calcium,Total 9.4 mg/dL (8.5-10.1); Chloride 110 mmol/L (98-107); Creatinine, Serum 0.63 mg/dL (0.55-1.02); EST Glomerular Filtration Rate 103 mL/min (>60); Est Glom Filt Rate - Afr Amer 124 mL/min (>60); Globulin 3.8 g/dL (2.2-4.2); Glucose 97 mg/dL (74-106); LDH 262 U/L (84-246); Potassium 4.1 mmol/L (3.5-5.1); Protein, Total 7.1 g/dL (6.4-8.2); Sodium Level 139 mmol/L (136-145)
== END ==
PROVIDERS: PCP Nurse Practitioner; Referring Provider Nurse Practitioner; Visit Provider Nurse Practitioner
DX: R74.02 Elevation of levels of lactic acid dehydrogenase [LDH] (principal); I10 Essential (primary) hypertension
CPT/HCPCS: 36415; 80053; 83615

== ENCOUNTER → 2021-06-16 05:52 | Outpatient (CLI) | payer OTHER, SELFPAY ==
--- NOTE | 2021-06-16 06:26 | RAD_ITS ---
STUDY: XR Chest 2 Views 06/16/2021 6:30 AM REASON FOR EXAM: Female, 60 years old. CHEST PAIN ELEVATED LDH COMPARISON: None TECHNIQUE: XR Chest 2 Views FINDINGS: There is no demonstrated pleural abnormality. Normal heart size. Normal mediastinum. Normal catherine. Prominent appearing increased interstitial lung markings. Normal visualized pulmonary arteries. There is atherosclerotic calcification of the aortic arch with tortuosity. There are diffuse degenerative changes of the visualized thoracic spine. There is degenerative osteoarthritis of the bilateral shoulders. There is no demonstrated abnormality of the visualized soft tissue structures of the upper abdomen. RAD/Chest PA and Lateral IMPRESSION: There are no acute findings. Electronically Signed: Haroldo Bertrand MD at 16:49 EST , Service support ,
[2021-06-16 06:47] LABS: Erythrocyte Sedimentation Rate 15 mm/hr (0-30)
[2021-06-16 06:59] LABS: Absolute Lymphocyte Count 1.73 X10^3/uL (0.83-4.51); Absolute Neutrophil Count 3.4 X10^3/uL (2.0-7.7); Basophil# 0.06 X10^3/uL; Eosinophil# 0.21 X10^3/uL; Eosinophils% 3.6 % (0-5); Hematocrit 37.9 % (37-47); Lymphocyte # 1.73 X10^3/ul (0.83-4.51); Lymphocyte % 29.8 % (19-41); Mean Corp Hgb Conc 34.3 g/dL (32-36); Mean Corpuscular Hgb 30.7 pg (27.0-32.0); Mean Corpuscular Volume 89.6 fL (81-99); Mean Platelet Vol. 10.5 fl (6.2-12.0); Monocyte# 0.41 X10^3/uL; Monocyte% 7.1 % (0-10); NRBC Flagged by Analyzer 0 % (0-5); Neutrophil # 3.39 X10^3/uL (2.7-7.7); Neutrophil % 58.3 % (47-70); Platelet Count 271 K/mm3 (150-450); RBC Distribution Width CV 12.3 % (11.6-14.6); RBC Distribution Width SD 40.3 fl (35.1-43.9); Red Blood Count 4.23 M/mm3 (4.2-5.4); White Blood Count 5.8 K/mm3 (4.4-11.0)
[2021-06-17 08:55] LABS: Haptoglobin 146 mg/dL (33-346)
== END ==
PROVIDERS: PCP Nurse Practitioner; Referring Provider Nurse Practitioner; Visit Provider Nurse Practitioner
DX: R74.02 Elevation of levels of lactic acid dehydrogenase [LDH] (principal)
CPT/HCPCS: 36415; 71046; 83010; 85025; 85652

== ENCOUNTER → 2021-06-16 06:15 | Outpatient (CLI) | payer OTHER, SELFPAY | PROVIDERS: PCP Nurse Practitioner; Referring Provider Nurse Practitioner; Visit Provider Nurse Practitioner | DX: R74.02 Elevation of levels of lactic acid dehydrogenase [LDH] (principal) ==

== ENCOUNTER → 2021-06-26 15:23 | Outpatient (CLI) | payer OTHER, SELFPAY ==
--- NOTE | 2021-06-26 15:46 | MRI_ITS ---
STUDY: MRI RIGHT SHOULDER REASON FOR EXAM: Female, 60 years old. IMPINGEMENT SYNDROME OF RIGHT SHOULDER TECHNIQUE: Standardized fat and water weighted pulse sequences were obtained in all 3 orthogonal planes. COMPARISON: MRI of the right shoulder dated June 27, 2020 FINDINGS: Moderate tendinopathy with signal abnormality and thickening of the supra spinatus tendon is present at the greater tuberosity insertion site, and in addition to some mild interstitial tearing at the undersurface. A small glenohumeral joint effusion is present. Normal infraspinatus tendon. Normal subscapularis tendon. Normal teres minor tendon. Normal supraspinatus muscle. Normal infraspinatus muscle. Normal subscapularis muscle. Normal teres minor muscle. Normal glenohumeral articulation. Normal humeral head and visualized proximal humerus. Normal biceps labral complex. Normal intracapsular long biceps tendon. Normal labrum. Normal capsulo- ligamentous complex. Normal rotator interval. There is mild osteoarthritis of the acromioclavicular articulation. There is a Type II morphology (curved), with a neutral orientation. There is minimal fluid distention of the subacromial bursa, consistent with mild subacromial-subdeltoid bursitis. Normal visualized coracohumeral and coracoacromial ligaments. Normal quadrilateral space. Normal axillary space. Normal deltoid muscle. Normal trapezius muscle. MRI/Upper Ext Joint Only(Routine) IMPRESSION: 1. Moderate tendinopathy with signal abnormality and thickening of the supra spinatus tendon is present at the greater tuberosity insertion site, and in addition to some mild interstitial tearing at the undersurface. A small glenohumeral joint effusion is present. Electronically Signed: Jose Anguiano MD at 23:08 EST , Service support ,
== END ==
PROVIDERS: PCP Nurse Practitioner; Referring Provider Orthopaedic Surgery; Visit Provider Orthopaedic Surgery
DX: M75.41 Impingement syndrome of right shoulder (principal)
CPT/HCPCS: 73221

== ENCOUNTER 2021-08-04 11:04 | Day surgery (SDC) | payer OTHER, SELFPAY ==
--- NOTE | 2021-07-28 13:32 | EKG12_ITS ---
Test Reason : PREOP Blood Pressure : / mmHG Vent. Rate : 085 BPM Atrial Rate : 085 BPM P-R Int : 168 ms QRS Dur : 088 ms QT Int : 358 ms P-R-T Axes : 021 -02 008 degrees QTc Int : 426 ms Normal sinus rhythm Normal ECG Confirmed by CESARIO BRICEÑO, NEYMAR ([id number]), web content editor DONNA CARBAJAL ([id number]) on 07/29/2021 1:43:45 PM Referred By: Ronald Mclain Confirmed By:NEYMAR NASSAR MD
[2021-07-28 15:31] LABS: Absolute Lymphocyte Count 1.84 X10^3/uL (0.83-4.51); Absolute Neutrophil Count 5.5 X10^3/uL (2.0-7.7); Basophil# 0.04 X10^3/uL; Basophil% 0.5 % (0-1); Eosinophil# 0.13 X10^3/uL; Eosinophils% 1.6 % (0-5); Hematocrit 38.6 % (37-47); Lymphocyte # 1.84 X10^3/ul (0.83-4.51); Lymphocyte % 22.6 % (19-41); Mean Corp Hgb Conc 33.7 g/dL (32-36); Mean Corpuscular Hgb 30.4 pg (27.0-32.0); Mean Corpuscular Volume 90.2 fL (81-99); Mean Platelet Vol. 10.6 fl (6.2-12.0); Monocyte# 0.58 X10^3/uL; Monocyte% 7.1 % (0-10); NRBC Flagged by Analyzer 0 % (0-5); Neutrophil # 5.51 X10^3/uL (2.7-7.7); Neutrophil % 67.8 % (47-70); Platelet Count 275 K/mm3 (150-450); RBC Distribution Width CV 12.6 % (11.6-14.6); RBC Distribution Width SD 41.1 fl (35.1-43.9); Red Blood Count 4.28 M/mm3 (4.2-5.4); White Blood Count 8.1 K/mm3 (4.4-11.0)
[2021-07-28 16:17] LABS: Anion Gap 6 (5-15); BUN 21 mg/dL (7-18); BUN/Creat Ratio 26.6 RATIO (10-20); Calcium,Total 9.9 mg/dL (8.5-10.1); Chloride 108 mmol/L (98-107); Creatinine, Serum 0.79 mg/dL (0.55-1.02); EST Glomerular Filtration Rate 79 mL/min (>60); Est Glom Filt Rate - Afr Amer 96 mL/min (>60); Glucose 86 mg/dL (74-106); Potassium 4.2 mmol/L (3.5-5.1); Sodium Level 142 mmol/L (136-145)
[2021-08-04] VITALS (8 sets, daily range): BP systolic 96–127; BP diastolic 74–88; PULSE 59–87; RESP 16–18; TEMP 36–36.7; O2SAT 91–96; BMI 31.4
[2021-08-04] MEDS: Lactated Ringers 1,000 ML 15 ML IV ×2 (11:38→14:49)
[2021-08-04] MEDS: Cefazolin 2 GM in 0.9% Normal Saline 100 ML IV (12:56)
[2021-08-04] MEDS: Bupivacaine Mpf 0.5% 30 ML VIAL (13:45)
[2021-08-04] MEDS: Epinephrine (1 mg/ml) 1 MG/ML VIAL (13:45)
--- NOTE | 2021-08-04 13:59 | OP.PCM_ITS ---
Report of Operation Date of Procedure: 08/04/21 Pre-Operative Diagnosis: SAIS, AC arthrosis, RCT right shoulder Post-Operative Diagnosis: same Surgery/Procedure Performed:: ASD, Roberto procedure, RCR right shoulder Surgeon: Ronald Mclain promotions coordinator: Guy Millan Type of Anesthesia: General/Regional Anesthesiologist: Franklin Pantoja Admantonio VTE Documentation VTE Present on Admission: No VTE Mechan Device Prophylaxis: SCD's and Knee High KRISS Hose VTE Pharm Prophylaxis ordered?: No Reason prophylaxis not ordered:: Treatment Not Indicated
== END 2021-08-04 23:59 | disposition home or self-care (01) ==
LOC: SDC 11:05 → AC 11:05
PROVIDERS: PCP Nurse Practitioner; Referring Provider Orthopaedic Surgery; Visit Provider Orthopaedic Surgery
PROC: (CPT 29827; principal; 2021-08-04 13:00)
DX: M75.51 Bursitis of right shoulder (principal); M19.011 Primary osteoarthritis, right shoulder; M75.111 Incomplete rotator cuff tear or rupture of right shoulder, not specified as traumatic; E55.9 Vitamin D deficiency, unspecified; I10 Essential (primary) hypertension; Z79.899 Other long term (current) drug therapy
CPT/HCPCS: 29824; 29826; 29827; 01630; 36415; 80048; 85025; 93005; J7120; J2405

== ENCOUNTER 2021-11-19 15:00 | Outpatient (RCR) | payer OTHER, SELFPAY ==
--- NOTE | 2021-08-08 09:35 | HP.PTEVAL_ITS ---
Patient's Visit Information JENARO WILSON is a 61 year old F referred to Physical Therapy by BC Koroma with a diagnosis of S/P RTC repair with SAD. DOS: 08/04/21. Date of Evaluation: 08/08/21 Physical Therapist: Suhas Becker DPT - Visit Plan Frequency: 3x /Week Duration: 6-8 weeks Plan: Start with - Subjective Pt. is here today for her initial evaluation with diagnosis of S/P RTC repair with SAD. DOS: 08/04/21. Pt. had a repair of the supraspinatus, complete subacromial bursectomy and shaving of the acromion/decompression of the subacromial space. She arrives today with use of ultra sling as indicated by physician. She reports overall doing well, no N/T, no changes in vision and no fever. She work in [employer] at [employer]. She is sleeping okay, but is having trouble staying asleep, sleeping on couch. She is trying to avoid her pain medication as it has been making her sick. She is taking Tylenol extra strength. She has been doing some pendulums, icing and gentle elbow flexion at home. She is hopeful to get back to all work and recreational activities without limitations. - Pain R shoulder Pain Intensity (Out of 10): 4 Pain Intensity Range: 3, 8 - Objective POSTURE: Pt. has normal shoulder heights, equal. She tends to keep R shoulder in guarded posture at side. PALPATION: Pt. has normal healing incisions, no signs of infection. Pt. has marked brusing and swelling at anterior shoulder, otherwise normal. NEURO: Pt. has normal sensation and DTR of BUEs. ROM: R shoulder: PROM: flexion 105deg, ER at side 15deg. Pt limited secondary to pain, no blocks noted. L shoulder: AROM full motion throughout. Pt. tolerating ROM well. MMT: LUE 5/5 through out. R wirst 5/5, elbow 5/5; DNT shoulder. LUE 5/5 throughout. - Balance/Special Test Scores Quick DASH Score: 79.5450 - Goals Goal 1:: LTG: Pt. to be I with HEP to increase ROM both actively and passively, to increase strength and promote general shoulder and UE stability. Goal Time Frame: 6-8 Weeks Goal 2:: STG: Pt. to sleep throughout the night with 0-2/10 pain in R shoulder allowing for improved quality of life. Goal Time Frame: 2 Weeks Goal 3:: LTG: pt. to have increased PROM of R shoulder to at least 165deg of flexion, 165deg of abduction, ER of 30deg, allowing increased ability to complete all upper body dressing and ADLs. Goal Time Frame: 4-6 Weeks Goal 4:: LTG: Pt. to have full AROM of R shoulder allowing her to complete all work related activities without limitations. Goal Time Frame: 6-8 Weeks Goal 5:: LTG: Pt. to have increased R shoulder strength to at least 4+/5 throughout allowing for increased ability to complete all job and recreational activities without limitations. - Rehabilitation Potential Physical Therapy Diagnosis: Pt. has signs and symptoms consistent with S/P RTC repair with SAD. She had her supraspinatus repair, complete bursectomy and SAD preformed on 08/04/21. Pt. has subsequent hypomobility, weakness, difficulty with functional activities and increased pain. Pt. would benefit from PT to address the above limitations progressing back to all functional and work activities without limitations. - Anticipated Interventions Patient/Client Instruction: Educate patient on: Condition, Plan of Care, Risk Factors, Benefits of Fitness Program For the Purpose of:: To improve health and function, To foster healthy habits, To improve decision making, To facilitate caregiver knowledge, To improve self management, To prevent re-injury, To improve ability to perform tasks related to life management Therapeutic Exercise to Include: Strength training, Power training, Body mechanics, Postural training, Passive ROM, Active ROM, Scapular Strength/Stabilization For the Purpose of:: To decrease pain, To decrease swelling/inflammation, To increase ROM, To improve nutrient delivery to tissue, To increase oxygenation perfusion, To improve muscle performance and motor function, To improve ability to perform ADL's, To increase tolerance to activity/condition/position, To improve performance and independence with ADL's, To improve health of tissue, To decrease soft tissue restriction, To improve endurance Manual Therapy Techniques to Include: Mobilization, Passive ROM, Soft tissue mobilization For the Purpose of:: To decrease pain, To decrease swelling/inflammation, To increase ROM, To improve nutrient delivery to tissue, To increase flexibility/ROM Cryotherapy (ice pack, ice massage): Yes Thermo therapy (hot pack): Yes For the Purpose of:: To decrease pain, To decrease swelling/inflammation, To increase ROM Thank you for the opportunity to evaluate your patient. For Medicare and Medicare HMO plans, please review the plan of care and approve it. It will need to be FAXED BACK to us at [phone] for Medicare purposes. For Medicare only, by signing this I certify the plan of care. Please let me know if there are questions or concerns regarding this plan of care. Physician Signature: Date:
--- NOTE | 2021-09-11 07:15 | HP.PTREVAL_ITS ---
BC Koroma, It has been my pleasure to treat JENARO WILSON over the last 14 visits for S/P RTC repair with SAD. DOS: 08/04/21. Please see the progress note below for an update on the physical therapy plan of care! Subjective: Pt. reports overall doing okay. She arrives in sling as normal. She did have some questions about wearing sling time frame. She was initially told 5 weeks, but at her last appointment she said she was told another 5 weeks, resulting in 8 weeks total. I will call physician to clarify. 3/10 pain in R shoulder pre treatment today. Objective/Function: PROM: flexion 155deg, increase NW, abd 150deg increase NW, ER at 90deg 65deg. IR at 90deg 30deg. Pt. is progressing with her ROM. She has greatest symptoms with end range abd and ER motions. Cont. to work on end range PROM progressing towards full. She is okay to add in AAROM start in supine and progressing to standing as tolerated. Add in IR next visit AAROM with wand. I added truong, ER at 90deg AAROM this date. I stressed to her about working on ROM progressing towards end range. She did have some questions about how much longer she shoulder wear her sling. I called physician a left a message. I will call back tomorrow if I have not heard back from them. Plan Plan: Cont. to progress end range PROM, add in AAROM as tolerated. Add in functional IR with wand next visit. I stressed to her about working to end range stretching. Pt. consents. Balance/Gait/Functional tests - Balance/Special Test Scores Quick DASH Score: 43.1800 Goals Goal 1:: LTG: Pt. to be I with HEP to increase ROM both actively and passively, to increase strength and promote general shoulder and UE stability. Goal Time Frame: 6-8 Weeks Goal Progress: Progressing Goal 2:: STG: Pt. to sleep throughout the night with 0-2/10 pain in R shoulder allowing for improved quality of life. Goal Time Frame: 2 Weeks Goal Progress: Progressing Goal 3:: LTG: pt. to have increased PROM of R shoulder to at least 165deg of flexion, 165deg of abduction, ER of 30deg, allowing increased ability to complete all upper body dressing and ADLs. Goal Time Frame: 4-6 Weeks Goal Progress: Progressing Goal 4:: LTG: Pt. to have full AROM of R shoulder allowing her to complete all work related activities without limitations. Goal Time Frame: 6-8 Weeks Goal Progress: Progressing Goal 5:: LTG: Pt. to have increased R shoulder strength to at least 4+/5 throughout allowing for increased ability to complete all job and recreational activities without limitations. Goal Progress: Progressing Anticipated Interventions Patient/Client Instruction: Educate patient on: Condition, Plan of Care, Risk Factors, Benefits of Fitness Program For the Purpose of:: To improve health and function, To foster healthy habits, To improve decision making, To facilitate caregiver knowledge, To improve self management, To prevent re-injury, To improve ability to perform tasks related to life management Therapeutic Exercise to Include: Strength training, Power training, Body mechanics, Postural training, Passive ROM, Active ROM, Scapular Strength/Stabilization For the Purpose of:: To decrease pain, To decrease swelling/inflammation, To increase ROM, To improve nutrient delivery to tissue, To increase oxygenation perfusion, To improve muscle performance and motor function, To improve ability to perform ADL's, To increase tolerance to activity/condition/position, To improve performance and independence with ADL's, To improve health of tissue, To decrease soft tissue restriction, To improve endurance Manual Therapy Techniques to Include: Mobilization, Passive ROM, Soft tissue mobilization For the Purpose of:: To decrease pain, To decrease swelling/inflammation, To increase ROM, To improve nutrient delivery to tissue, To increase flexibility/ROM Cryotherapy (ice pack, ice massage): Yes Thermo therapy (hot pack): Yes For the Purpose of:: To decrease pain, To decrease swelling/inflammation, To increase ROM Please do not hesitate to contact me at [phone] by phone or Fax: if you have questions or concerns regarding this new plan of care! Sincerely, Suhas Becker DPT
== END 2021-11-19 19:00 | disposition home or self-care (01) ==
LOC: PT 15:00
PROVIDERS: PCP Nurse Practitioner; Referring Provider Physician Assistant; Visit Provider Physician Assistant
DX: S46.011D Strain of muscle(s) and tendon(s) of the rotator cuff of right shoulder, subsequent encounter (principal); X58.XXXD Exposure to other specified factors, subsequent encounter; M75.41 Impingement syndrome of right shoulder
CPT/HCPCS: 97110; 97140; 97161; 97164

== ENCOUNTER → 2021-12-22 | Outpatient (CLI) | payer OTHER, SELFPAY ==
[2021-12-22 09:26] LABS: Anion Gap 7 (5-15); BUN 23 mg/dL (7-18); BUN/Creat Ratio 25.2 RATIO (10-20); Calcium,Total 9.9 mg/dL (8.5-10.1); Chloride 103 mmol/L (98-107); Creatinine, Serum 0.91 mg/dL (0.55-1.02); EST Glomerular Filtration Rate 67 mL/min (>60); Est Glom Filt Rate - Afr Amer 81 mL/min (>60); Glucose 115 mg/dL (74-106); Potassium 3.3 mmol/L (3.5-5.1); Sodium Level 138 mmol/L (136-145)
== END | disposition home or self-care (01) ==
LOC: LAB 08:54
PROVIDERS: Referring Provider Internal Medicine; Visit Provider Internal Medicine
DX: I10 Essential (primary) hypertension (principal)
CPT/HCPCS: 36415; 80048

== ENCOUNTER → 2022-01-09 | Outpatient (CLI) | payer OTHER, SELFPAY ==
--- NOTE | 2022-01-09 12:26 | ECHOCS_ITS ---
Reason For Study: Systolic Murmur Procedure This was a 2D Doppler, Color Flow transthoracic echocardiogram. The study was technically difficult. Contrast injection was performed. Exam performed in department. Left Ventricle Normal LV size. Left ventricular systolic function is normal. The estimated ejection fraction is 65 %. Diastolic function is indeterminate. No regional wall motion abnormalities noted. Right Ventricle Normal RV size. Normal systolic function. Atria Normal left atrium. Normal right atrium. No doppler evidence for ASD. Mitral Valve There is no mitral annular calcification. Normal mitral valve. Trivial mitral valve insufficiency. Tricuspid Valve Normal tricuspid valve. Trivial tricuspid valve insufficiency. Unable to estimate RV systolic pressure/pulmonary artery pressure due to technically difficult study. Aortic Valve Bicuspid aortic valve. Moderate diffuse aortic valve calcification. Moderate - Severe Aortic Valve Stenosis. Pulmonic Valve The pulmonic valve is not well visualized. Trivial pulmonic valve insufficiency. Great Vessels Mild to moderately dilated aortic root. Pericardium/Pleural No pericardial effusion. Medication 20 gauge I.V. with prn adaptor inserted into right arm. Diluted definity 2ml given slow IV push to enhance endocardial definition. MMode/2D Measurements & Calculations LVIDd: 4.2 cm IVSd: 1.1 cm LVOT diam: 2.1 cm LVIDs: 3.3 cm LVPWd: 1.3 cm RVDd: 3.0 cm FS: 22.1 % LVOT area: 3.5 cm2 Ao root diam: 4.3 cm LVAd ap4: 29.8 cm2 SV(MOD-sp4): 46.1 ml LVLd ap4: 8.3 cm EDV(MOD-sp4): 86.0 ml EDV(sp4-el): 91.4 ml LVAs ap4: 17.3 cm2 LVLs ap4: 6.1 cm ESV(MOD-sp4): 39.9 ml ESV(sp4-el): 41.8 ml EF(MOD-sp4): 53.6 % EF(sp4-el): 54.2 % SV([facility]): 49.5 ml Time Measurements MV dec time: 0.29 sec Doppler Measurements & Calculations MV E max forrest: 40.6 cm/sec Lat Peak E' Forrest: 8.8 cm/sec Med Peak E' Forrest: 2.9 cm/sec MV A max forrest: 89.8 cm/sec E/E' lat: 4.6 E/E' med: 14.0 MV E/A: 0.45 MV V2 max: 104.2 cm/sec MV P1/2t max forrest: 69.2 cm/sec Ao V2 max: 351.5 cm/sec MV max P.3 mmHg MV P1/2t: 82.1 msec Ao max P.4 mmHg MV V2 mean: 54.7 cm/sec MV dec slope: 246.9 cm/sec2 Ao V2 mean: 251.3 cm/sec MV mean P.4 mmHg Ao mean P.3 mmHg MV V2 VTI: 22.4 cm MVA(P1/2t): 2.7 cm2 Ao V2 VTI: 74.0 cm MVA(VTI): 2.2 cm2 MAURO(I,D): 0.68 cm2 MAURO(V,D): 0.67 cm2 LV V1 max: 67.8 cm/sec SV(LVOT): 50.4 ml PA V2 max: 79.2 cm/sec LV V1 max P.8 mmHg LV V1 mean P.1 mmHg LV V1 mean: 48.9 cm/sec LV V1 VTI: 14.4 cm ECHO/Echo Complete W/ Contrast Interpretation Summary The study was technically difficult. Contrast injection was performed. Left ventricular systolic function is normal. The estimated ejection fraction is 65 %. Trivial mitral valve insufficiency. Trivial tricuspid valve insufficiency. Bicuspid aortic valve. Moderate - Severe Aortic Valve Stenosis. Trivial pulmonic valve insufficiency. Mild to moderately dilated aortic root. Unable to estimate RV systolic pressure/pulmonary artery pressure due to techni [place] difficult study. Diastolic function is indeterminate. Ordering Physician: Jaimee Jarrett Referring Physician: Jaimee Jarrett Performed By: Gibran Araujo RCS
== END | disposition home or self-care (01) ==
LOC: CVS 12:23
PROVIDERS: Referring Provider Internal Medicine; Visit Provider Internal Medicine
DX: R42 Dizziness and giddiness (principal); R01.1 Cardiac murmur, unspecified
CPT/HCPCS: 93306; Q9957; A4216; C8929

== ENCOUNTER → 2022-01-13 | Outpatient (CLI) | payer OTHER, SELFPAY ==
--- NOTE | 2022-01-13 18:15 | MRI_ITS ---
EXAM: MR HEAD WITHOUT AND WITH INTRAVENOUS CONTRAST CLINICAL INDICATION: VERTIGO, bilateral tinnitus TECHNIQUE: Multiplanar and multisequence MR images of the brain were obtained without and with intravenous contrast. Additional high-resolution imaging through the temporal bones also performed. This report was created using uSamp report generation technology. CONTRAST: IV 17ml Dotarem COMPARISON: None. FINDINGS: BRAIN AND EXTRA-AXIAL SPACES: Increased T2 signal intensity within the cerebral white matter suggestive of chronic microvascular change. Old lacunar infarct within the left caudate nucleus. No intra- or extra-axial hemorrhage. No intracranial mass or mass effect. Posterior fossa structures are unremarkable. Ventricles are appropriate for age. No hydrocephalus. Basal cisterns are patent. SELLA: Unremarkable. Normal sella turcica, pituitary gland, infundibular stalk, optic chiasm and hypothalamus. AUDITORY SYSTEM: Unremarkable. The internal auditory canals are patent. BONES/JOINTS: Unremarkable. No discrete lytic or blastic abnormalities. SINUSES: Unremarkable as visualized. Clear. MASTOID AIR CELLS: Unremarkable as visualized. Clear. ORBITS: Unremarkable as visualized. Both globes, extraocular muscles, optic nerves and retrobulbar fat appear unremarkable. VASCULATURE: Unremarkable as visualized. Normal flow voids in the major intracranial circulation. MRI/Brain W/WO Contrast IMPRESSION: 1. No acute intracranial abnormality. 2. Chronic microvascular change. 3. Normal posterior fossa and internal auditory canals. Electronically Signed: Jarad Baumann MD at 10:30 EDT ,
== END | disposition home or self-care (01) ==
LOC: MRI 17:38
PROVIDERS: PCP Internal Medicine; Referring Provider Internal Medicine; Visit Provider Internal Medicine
DX: R42 Dizziness and giddiness (principal); R01.1 Cardiac murmur, unspecified
CPT/HCPCS: 70553; A9575

== ENCOUNTER → 2022-01-14 | Outpatient (CLI) | payer OTHER, SELFPAY ==
[2022-01-14 07:17] LABS: Absolute Lymphocyte Count 1.75 X10^3/uL (0.83-4.51); Absolute Neutrophil Count 4.2 X10^3/uL (2.0-7.7); Basophil# 0.04 X10^3/uL; Basophil% 0.6 % (0-1); Eosinophil# 0.35 X10^3/uL; Eosinophils% 5.1 % (0-5); Hemoglobin 13.3 g/dL (12.0-15.0); Lymphocyte # 1.75 X10^3/ul (0.83-4.51); Lymphocyte % 25.5 % (19-41); Mean Corp Hgb Conc 34.1 g/dL (32-36); Mean Corpuscular Hgb 30.9 pg (27.0-32.0); Mean Corpuscular Volume 90.5 fL (81-99); Mean Platelet Vol. 11.3 fl (6.2-12.0); Monocyte# 0.51 X10^3/uL; Monocyte% 7.4 % (0-10); NRBC Flagged by Analyzer 0 % (0-5); Neutrophil # 4.19 X10^3/uL (2.7-7.7); Neutrophil % 61.3 % (47-70); Platelet Count 311 K/mm3 (150-450); RBC Distribution Width CV 11.9 % (11.6-14.6); Red Blood Count 4.31 M/mm3 (4.2-5.4); White Blood Count 6.9 K/mm3 (4.4-11.0)
[2022-01-14 07:50] LABS: AST(SGOT) 21 U/L (15-37); Alanine Aminotransfer ALT/SGPT 31 U/L (13-56); Albumin, Serum 3.5 g/dL (3.2-5.0); Alkaline Phosphatase 102 U/L (45-117); Anion Gap 9 (5-15); BUN 22 mg/dL (7-18); BUN/Creat Ratio 33.8 RATIO (10-20); Calcium,Total 9.3 mg/dL (8.5-10.1); Chloride 109 mmol/L (98-107); Creatinine, Serum 0.65 mg/dL (0.55-1.02); EST Glomerular Filtration Rate 99 mL/min (>60); Est Glom Filt Rate - Afr Amer 119 mL/min (>60); Globulin 3.4 g/dL (2.2-4.2); Glucose 103 mg/dL (74-106); Potassium 3.4 mmol/L (3.5-5.1); Protein, Total 6.9 g/dL (6.4-8.2); Sodium Level 142 mmol/L (136-145); Thyroid Stim Hormone (TSH) 2.05 uIU/mL (0.358-3.74)
[2022-01-14 07:58] LABS: Color, Urine Yellow (Yellow); Glucose, Dipstick Normal (Normal); Ketone-Dipstick Negative (Negative); Leukocyte Esterase-Dipstick 25 /ul (Negative); Nitrite-Dipstick Negative (Negative); Occult Blood-Urine 10 /ul (Negative); Protein-Dipstick 30 mg/dl (Negative); Specific Gravity, Urine 1.025 (1.002-1.030); Urine Clarity Sl. Cloudy (Clear); Urine Urobilinogen 1 mg/dl (Normal)
[2022-01-14 07:59] LABS: Urine Bilirubin Dipstick 1 mg/dL (Negative)
[2022-01-14 08:09] LABS: Bacteria 2+ /hpf (None Seen); Mucous, Urine 1+ /hpf (<or=2+); Red Blood Cells-Urine 0-5 SEEN /hpf (0-5); Squamous Epithelial Cells - UA 0-5 SEEN /hpf (5-10); White Blood Cells 0-5 SEEN /hpf (0-5)
== END | disposition home or self-care (01) ==
LOC: LAB 06:03
PROVIDERS: PCP Internal Medicine; Referring Provider Internal Medicine; Visit Provider Internal Medicine
DX: I10 Essential (primary) hypertension (principal); E87.6 Hypokalemia
CPT/HCPCS: 36415; 80053; 81001; 84443; 85025

== ENCOUNTER → 2022-02-02 | Outpatient (CLI) | payer OTHER, SELFPAY ==
[2022-02-02 07:27] LABS: Microalbumin,Random Urine 14.7 mg/L (NO RANGE EST.); Microalbumin:Creatinine Ratio 6.9 mg/g CRE (<30 mg/g CRE)
[2022-02-02 07:41] LABS: Hemoglobin A1c 5.1 % (3.8-5.6)
[2022-02-02 08:09] LABS: Vitamin D,25 Hydroxy 55.6 ng/mL
== END | disposition home or self-care (01) ==
LOC: LAB 06:03
PROVIDERS: PCP Nurse Practitioner Family; Referring Provider Nurse Practitioner Family; Visit Provider Nurse Practitioner Family
DX: E55.9 Vitamin D deficiency, unspecified (principal); Z83.3 Family history of diabetes mellitus
CPT/HCPCS: 36415; 82043; 82306; 82570; 83036

== ENCOUNTER → 2022-05-19 | Day surgery (SDC) | payer OTHER, SELFPAY ==
[2022-05-04 08:31] LABS: Absolute Lymphocyte Count 1.87 X10^3/uL (0.83-4.51); Basophil# 0.05 X10^3/uL; Basophil% 0.7 % (0-1); Eosinophil# 0.18 X10^3/uL; Eosinophils% 2.4 % (0-5); Hematocrit 41.4 % (37-47); Hemoglobin 14.3 g/dL (12.0-15.0); Lymphocyte # 1.87 X10^3/ul (0.83-4.51); Lymphocyte % 24.4 % (19-41); Mean Corp Hgb Conc 34.5 g/dL (32-36); Mean Corpuscular Hgb 31.2 pg (27.0-32.0); Mean Corpuscular Volume 90.2 fL (81-99); Mean Platelet Vol. 10.8 fl (6.2-12.0); Monocyte# 0.51 X10^3/uL; Monocyte% 6.7 % (0-10); NRBC Flagged by Analyzer 0 % (0-5); Neutrophil # 5.01 X10^3/uL (2.7-7.7); Neutrophil % 65.4 % (47-70); Platelet Count 356 K/mm3 (150-450); RBC Distribution Width CV 12.5 % (11.6-14.6); RBC Distribution Width SD 41.2 fl (35.1-43.9); Red Blood Count 4.59 M/mm3 (4.2-5.4); White Blood Count 7.7 K/mm3 (4.4-11.0)
[2022-05-04 08:40] LABS: Partial Thromboplast Time 29.9 Seconds (24.1-36.2)
[2022-05-04 08:48] LABS: Anion Gap 10 (5-15); BUN 17 mg/dL (7-18); BUN/Creat Ratio 23.3 RATIO (10-20); Calcium,Total 10.2 mg/dL (8.5-10.1); Chloride 107 mmol/L (98-107); Creatinine, Serum 0.73 mg/dL (0.55-1.02); EST Glomerular Filtration Rate 86 mL/min (>60); Est Glom Filt Rate - Afr Amer 104 mL/min (>60); Glucose 103 mg/dL (74-106); Potassium 3.9 mmol/L (3.5-5.1); Sodium Level 142 mmol/L (136-145)
[2022-05-04 08:59] LABS: Prothrombin Time (Protime)PT. 12.7 SECONDS (11.7-14.9)
--- NOTE | 2022-05-06 09:48 | RAD_ITS ---
STUDY: X-RAY CHEST REASON FOR EXAM: Female, 61 years old. Heart cath TECHNIQUE: PA and lateral views of the chest. COMPARISON: 06/16/2020 oh FINDINGS: The lungs are clear and expanded. There is no demonstrated pleural abnormality. Normal size heart. Normal mediastinum and catherine. Normal visualized pulmonary arteries. Normal visualized aortic arch and descending thoracic aorta. Normal visualized thoracic spine. Normal visualized ribs, clavicles, and shoulders. There is no demonstrated abnormality of the visualized soft tissue structures of the upper abdomen. RAD/Chest PA and Lateral IMPRESSION: Normal x-ray examination of the chest. Electronically Signed: Tobias Kelly MD at 10:00 EDT ,
[2022-05-18 08:07] VITALS: BMI 30.1
--- NOTE | 2022-05-18 16:52 | HP.PCM_ITS ---
Documented by User: Vianey De La Garza NP, [employer] 05/18/22 16:58 History and Physical Date of Admission: 05/19/22 This is a 61-year-old white female who presents today for a left cardiac catheterization. She was consulted based upon concerns of dizziness as well as findings of aortic valve disease with the appearance of a bicuspid aortic valve with moderate to severe aortic valve stenosis.? She states to the best of her knowledge she has been told she has had a murmur in the past but states it was never thought to be concerning and/or pursued.? Thus she had not undergone cardiovascular evaluation until recently. Recently she had been noting concerns of dizziness and/or feeling off balance.? She did not believe she was actually experiencing vertigo.? She had no other associated focal motor or sensory deficits. She had not necessarily been complaining of chest discomfort.? She may have noted some element of shortness of breath and dyspnea with activity.? There have been no episodes of acute orthopnea or PND or worsening peripheral pitting edema.? She has not had syncope.? She does state at times that she has had indigestion.? She has attributed this to noncardiac related issues. She was evaluated by her PCP.? She had undergone a twelve-lead ECG it appears on 12-31-2021.? It appears she was in sinus rhythm with no acute changes. She did have an ECG performed in the office today to evaluate for any dynamic changes.? Again she was in sinus rhythm with no acute ECG changes. As part of her evaluation she had a transthoracic echocardiogram performed.? She had a normal left ventricle with an LVEF of 65% with trivial MR/TR and a bicuspid appearing aortic valve with moderate to severe aortic valve stenosis with a peak aortic valve velocity of approximately 3.5 cm/s, mean gradient of approximately 28 mmHg, and an aortic valve area of approximately 0.7 cm?.? She also was noted to have trivial DC and a mild to moderately dilated aortic root. Intake Vital signs: See EMR Allergies No Known Allergies Allergy (Verified 04/16/22 11:11) Medications amlodipine 5 mg tablet 5 mg PO DAILY 07/25/21 [History Confirmed 04/16/22] cholecalciferol (vitamin D3) 125 mcg (5,000 unit) tablet 125 mcg PO QWEEK 04/14/22 [History Confirmed 04/16/22] aspirin 81 mg chewable tablet 81 mg PO DAILY #1 TAB 04/16/22 [Rx Confirmed 04/16/22] hydrochlorothiazide 25 mg tablet 12.5 mg PO DAILY 04/16/22 [History Confirmed 04/16/22] PFSH Medical History? AC (acromioclavicular) arthritis Alcohol use Arthritis Back pain Benign essential hypertension, age 0-18 Biceps tendonitis on right Bicuspid aortic valve Essential hypertension History of edema Hyperparathyroidism Hypertension Migraine headache Non-smoker Nonrheumatic aortic (valve) stenosis Partial tear of right rotator cuff Screen for colon cancer Syncope Tachycardia Vitamin D deficiency Surgical History? History of History of rotator cuff surgery Hx of colonoscopy Family History Mother Hypertension DiabetesSister Heart valve replaced Aortic aneurysm Social History? Smoking Status:? Never smoker alcohol intake:? current alcohol intake frequency: holidays/special occasions only substance use type:? does not use caffeine:? No what type of physical activity do you participate in:? other details: gym frequency:? 1-2 times per week do you feel safe at home:? Yes ROS Const Const: Positive for fatigue (increased); Negative for weakness, body ache, fever(s), headache(s), chills, frequent falls, night sweats, daytime sleepiness, difficulty sleeping, excessive sweating, weight gain, weight loss, increased appetite, poor appetite, anorexia or other Eyes Eyes: Negative for blurry vision or double vision ENT ENT: Positive for dizziness (off balance; random); Negative for headache(s) or balance problems Cardio Chest Pain: Yes (occasional) Character: dull and squeezing Onset: exercise Location: mid sternal Duration: minutes (10-15) Relieving: rest Palpitations: Yes (occasional; noticed increase in frequency) feels like its: other (flutter) Edema: None Muscle aches with walking: None Resp Respiratory: Positive for SOB with activity (slight) and Cough (occasional productive in manjit am; dry); Negative for SOB at rest, SOB orthopnea\SOB lying down, Coughing up blood/hemoptysis, chest congestion, pain on inspiration, snoring, stridor, wheezing, crackles, paroxysmal nocturnal dyspnea or other Musc Musc: Negative for muscle aches/ myalgia, muscle weakness, joint pain or balance problems Neuro Neuro: Positive for dizziness (off balance; random) and near syncope; Negative for lightheadedness, syncope, orthostatic symptoms, frequent falls, headache(s), weakness, confusion, memory loss, restless legs, blurry vision, double vision, vertigo, seizures, lack of coordination or other Endo Endo: Positive for fatigue (increased); Negative for excessive sweating Cardiology Exam Const Appearance: cooperative, healthy appearing, comfortable, no acute distress, well developed and well groomed Nutritional Appearance: overweight Orientation: alert, awake and oriented x3 Head Head: normal to inspection, normocephalic and atraumatic Ears: hearing grossly normal bilaterally Nose: external nose normal Face and Sinus: face symmetric Eyes Eyelids: eyelids normal Conjunctivae: conjunctivae normal Pupils: PERRL EOM: EOM intact bilaterally Neck Neck: normal visual inspection and full ROM Carotids: delayed carotid upstroke Chest Chest inspection: normal inspection of the chest, symmetric chest movement and normal respiratory effort Auscultation: Bilateral: Clear to Auscultation Cardio Palpation: normal PMI Rate: regular rate Rhythm: regular rhythm Heart sounds: S1 normal, murmur and diminished A2 Murmur: Grade 3/6, harsh, late systolic, crescendo, LVOT, sternal notch and radiates to carotids GI GI: normal to inspection, soft and bowel sounds present Neuro General: patient alert, patient awake, patient oriented x3, gait normal and moves all extremities Skin Skin: no rashes or lesions noted Extremities Pulses: Normal: Right Dorsalis Pedis Pulse, Left Dorsalis Pedis Pulse, Right Posterior Tibial Pulse, Left Posterior Tibial Pulse, Right Radial Pulse and Left Radial Pulse Lower Extremity Edema: None: Bilateral Psych Psychological: normal affect Supplemental Info Supplemental Information Echocardiogram: 01/09/2022 Interpretation Summary The study was technically difficult. Contrast injection was performed. ? Left ventricular systolic function is normal. The estimated ejection fraction is 65 %. Trivial mitral valve insufficiency. Trivial tricuspid valve insufficiency. Bicuspid aortic valve. Moderate - Severe Aortic Valve Stenosis. Trivial pulmonic valve insufficiency. Mild to moderately dilated aortic root. Unable to estimate RV systolic pressure/pulmonary artery pressure due to technically difficult study. Diastolic function is indeterminate. Assessment & Plan Assessment/Plan (1) Dizziness: (2) Palpitations: (3) Nonrheumatic aortic (valve) stenosis: (4) Bicuspid aortic valve: PLAN: Plan Follow up will be based upon findings from cardiac catheterization. Documented by User: Dr. Devonte Cullen MD 05/19/22 07:55 Assessment & Plan Assessment/Plan (1) Dizziness: (2) Palpitations: (3) Nonrheumatic aortic (valve) stenosis: (4) Bicuspid aortic valve: Addt'l Comments Addendum: Please see duplicate H&P dated the same date with addendum attached. This note was generated using a voice recognition system and there may be incorrect words, spelling or punctuation that were not noted when reviewing the office note prior to saving.
--- NOTE | 2022-05-18 18:01 | HP.PCM_ITS ---
History and Physical Date of Admission: 05/19/22 [facility] [address] [place] [address] JENARO WILSON : 1960 Provider: Dr. Devonte Cullen MD Age/Sex:? 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 She states to the best of her knowledge she has been told she has had a murmur in the past but states it was never thought to be concerning and/or pursued.? Thus she had not undergone cardiovascular evaluation until recently. Recently she had been noting concerns of dizziness and/or feeling off balance.? She did not believe she was actually experiencing vertigo.? She had no other associated focal motor or sensory deficits. She had not necessarily been complaining of chest discomfort.? She may have noted some element of shortness of breath and dyspnea with activity.? There have been no episodes of acute orthopnea or PND or worsening peripheral pitting edema.? She has not had syncope.? She does state at times that she has had indigestion.? She has attributed this to noncardiac related issues. She was evaluated by her PCP.? She had undergone a twelve-lead ECG it appears on 12-31-2021.? It appears she was in sinus rhythm with no acute changes. She did have an ECG performed in the office today to evaluate for any dynamic changes.? Again she was in sinus rhythm with no acute ECG changes. As part of her evaluation she had a transthoracic echocardiogram performed.? She had a normal left ventricle with an LVEF of 65% with trivial MR/TR and a bicuspid appearing aortic valve with moderate to severe aortic valve stenosis with a peak aortic valve velocity of approximately 3.5 cm/s, mean gradient of approximately 28 mmHg, and an aortic valve area of approximately 0.7 cm?.? She also was noted to have trivial CT and a mild to moderately dilated aortic root. She has been referred for further cardiovascular evaluation. Intake Vital Signs ? 08/04/2210:31 04/16/2211:08 04/16/2211:11 Height 5 ft 4 in 5 ft 4 in 5 ft 5 in Weight: ? ? 181 lb 5 oz BMI ? ? 30.2 BP ? ? 128/98 H Blood Pressure Location ? ? Lt brachial Position ? ? Sitting Respiration ? ? 16 Pulse ? ? 84 Pulse Source ? ? 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 AC (acromioclavicular) arthritis Alcohol use Arthritis Back pain Benign essential hypertension, age 0-18 Biceps tendonitis on right Bicuspid aortic valve Essential hypertension History of edema Hyperparathyroidism Hypertension Migraine headache Non-smoker Nonrheumatic aortic (valve) stenosis Partial tear of right rotator cuff Screen for colon cancer Syncope Tachycardia Vitamin D deficiency Surgical History? History of History of rotator cuff surgery Hx of colonoscopy Family History? Mother Hypertension DiabetesSister Heart valve replaced Aortic aneurysm Social History? Smoking Status:? Never smoker alcohol intake:? current alcohol intake frequency: holidays/special occasions only substance use type:? does not use caffeine:? No what type of physical activity do you participate in:? other details: gym frequency:? 1-2 times per week do you feel safe at home:? Yes ROS Const Const: Positive for fatigue (increased); Negative for weakness, body ache, fever(s), headache(s), chills, frequent falls, night sweats, daytime sleepiness, difficulty sleeping, excessive sweating, weight gain, weight loss, increased appetite, poor appetite, anorexia or other Eyes Eyes: Negative for blurry vision or double vision ENT ENT: Positive for dizziness (off balance; random); Negative for headache(s) or balance problems Cardio Chest Pain: Yes (occasional) Character: dull and squeezing Onset: exercise Location: mid sternal Duration: minutes (10-15) Relieving: rest Palpitations: Yes (occasional; noticed increase in frequency) feels like its: other (flutter) Edema: None Muscle aches with walking: None Resp Respiratory: Positive for SOB with activity (slight) and Cough (occasional productive in manjit am; dry); Negative for SOB at rest, SOB orthopnea\SOB lying down, Coughing up blood/hemoptysis, chest congestion, pain on inspiration, snoring, stridor, wheezing, crackles, paroxysmal nocturnal dyspnea or other Musc Musc: Negative for muscle aches/ myalgia, muscle weakness, joint pain or balance problems Neuro Neuro: Positive for dizziness (off balance; random) and near syncope; Negative for lightheadedness, syncope, orthostatic symptoms, frequent falls, headache(s), weakness, confusion, memory loss, restless legs, blurry vision, double vision, vertigo, seizures, lack of coordination or other Endo Endo: Positive for fatigue (increased); Negative for excessive sweating Cardiology Exam Const Appearance: cooperative, healthy appearing, comfortable, no acute distress, well developed and well groomed Nutritional Appearance: overweight Orientation: alert, awake and oriented x3 Head Head: normal to inspection, normocephalic and atraumatic Ears: hearing grossly normal bilaterally Nose: external nose normal Face and Sinus: face symmetric Eyes Eyelids: eyelids normal Conjunctivae: conjunctivae normal Pupils: PERRL EOM: EOM intact bilaterally Neck Neck: normal visual inspection and full ROM Carotids: delayed carotid upstroke Chest Chest inspection: normal inspection of the chest, symmetric chest movement and normal respiratory effort Auscultation: Bilateral: Clear to Auscultation Cardio Palpation: normal PMI Rate: regular rate Rhythm: regular rhythm Heart sounds: S1 normal, murmur and diminished A2 Murmur: Grade 3/6, harsh, late systolic, crescendo, LVOT, sternal notch and radiates to carotids GI GI: normal to inspection, soft and bowel sounds present Neuro General: patient alert, patient awake, patient oriented x3, gait normal and moves all extremities Skin Skin: no rashes or lesions noted Extremities Pulses: Normal: Right Dorsalis Pedis Pulse, Left Dorsalis Pedis Pulse, Right Posterior Tibial Pulse, Left Posterior Tibial Pulse, Right Radial Pulse and Left Radial Pulse Lower Extremity Edema: None: Bilateral Psych Psychological: normal affect Supplemental Info Supplemental Information Echocardiogram: 01/09/2022 Interpretation Summary The study was technically difficult. Contrast injection was performed. ? Left ventricular systolic function is normal. The estimated ejection fraction is 65 %. Trivial mitral valve insufficiency. Trivial tricuspid valve insufficiency. Bicuspid aortic valve. Moderate - Severe Aortic Valve Stenosis. Trivial pulmonic valve insufficiency. Mild to moderately dilated aortic root. Unable to estimate RV systolic pressure/pulmonary artery pressure due to technically difficult study. Diastolic function is indeterminate. Labs: ?? ? LDL Cholesterol 97 mg/dL (0-130) ?? ? HDL Cholesterol 66 mg/dL (40-) ?? ? Triglycerides 105 mg/dL (-199) ?? ?C VLDL Cholesterol 21 mg/dL (5-40) Diagnostics: ?? ? Electrocardiogram ? Echocardiogram ? Chest X-Ray ? Pulmonary: ?? ? No Data to Display Assessment and Plan Assessment and Plan (1) Bicuspid aortic valve: ?Status:?Acute ?Plan: She does appear to have findings compatible with a bicuspid aortic valve. She states that her sister was actually diagnosed with a similar type problem at a relatively young age and subsequently required valvular heart surgery. (2) Nonrheumatic aortic (valve) stenosis: ?Status:?Acute ?Comment: Mod-Severe per ECHO 01/09/22 ?Plan: Her bicuspid arctic valve appears to demonstrate findings compatible with moderate to severe aortic valve stenosis. Based upon her symptoms and findings it would not be unreasonable to further evaluate her in the cardiac catheterization laboratory. This would be in preparation for CT surgery evaluation for valvular repair/replacement. (3) Essential hypertension: ?Status:?Acute ?Plan: She does have a history of hypertension. She states her medications have been adjusted. For the moment she will continue her ImmTher be. (4) Dizziness: ?Status:?Acute ?Plan: She has had episodes of dizziness.? It is unclear as to the exact etiology of these episodes. She will be evaluated with an ambulatory event monitor and attempt to correlate any concerning changes with rate and/or rhythm superimposed upon her valvular related issues that would correlate with these findings. ? ? ? Orders: Orders 12 Lead EKG performed by [facility] Today I10 - Essential (primary) hypertension, R00.0 - Tachycardia, unspecified ? Left & Right Heart Cath Today I10 - Essential (primary) hypertension, I35.0 - Nonrheumatic aortic (valve) stenosis, Q23.1 - Congenital insufficiency of aortic valve, R00.0 - Tachycardia, unspecified, R00.2 - Palpitations, R42 - Dizziness and giddiness ? 30 Day Event Recorder Preventi Today I10 - Essential (primary) hypertension, I35.0 - Nonrheumatic aortic (valve) stenosis, Q23.1 - Congenital insufficiency of aortic valve, R00.0 - Tachycardia, unspecified, R00.2 - Palpitations, R42 - Dizziness and giddiness ? Basic Metabolic Profile (BMP) Today I10 - Essential (primary) hypertension, I35.0 - Nonrheumatic aortic (valve) stenosis, Q23.1 - Congenital insufficiency of aortic valve, R00.0 - Tachycardia, unspecified, R00.2 - Palpitations, R42 - Dizziness and giddiness ? Partial Thromboplast Time Today I10 - Essential (primary) hypertension, I35.0 - Nonrheumatic aortic (valve) stenosis, Q23.1 - Congenital insufficiency of aortic valve, R00.0 - Tachycardia, unspecified, R00.2 - Palpitations, R42 - Dizziness and giddiness ? Prothrombin Time w/INR Today I10 - Essential (primary) hypertension, I35.0 - Nonrheumatic aortic (valve) stenosis, Q23.1 - Congenital insufficiency of aortic valve, R00.0 - Tachycardia, unspecified, R00.2 - Palpitations, R42 - Dizziness and giddiness ? CBC W/Diff, Automated Today I10 - Essential (primary) hypertension, I35.0 - Nonrheumatic aortic (valve) stenosis, Q23.1 - Congenital insufficiency of aortic valve, R00.0 - Tachycardia, unspecified, R00.2 - Palpitations, R42 - Dizziness and giddiness ? Medications: New aspirin 81 mg? PO DAILY 1 TAB 0RF ? ? Plan Details Additional Comments: In the interim she will initiate medical management with aspirin 81 mg p.o. daily. The above was discussed with her and she was agreeable to this approach Thank you for allowing me to participate in the care of your patient.? Please don't hesitate to call if any issues arise. This note was generated using a voice recognition system and there may be incorrect words, spelling or punctuation that were not noted when reviewing the office note prior to saving. Follow Up: ? ? 6 Weeks (PFM ) COVID (Procedure Consent) Procedure Criteria Procedure Criteria: Yes Elective The surgeon/proceduralist and patient have discussed in detail the risk of exposure to and/or potential harm posed by the COVID-19 virus with having a surgery/procedure at this time versus the risk of? delaying the surgery/procedure. It is not possible to know either the risk of delaying the surgery or procedure or chance of getting an infection with perfect accuracy, but a joint decision was made between the patient and the surgeon/proceduralist ?to proceed at this time with the scheduled surgery/procedure as indicated on the consent form. Coding Level of Care Code Off vis,new,level 5 Diagnoses Bicuspid aortic valve? Q23.1 Nonrheumatic aortic (valve) stenosis? I35.0 Essential hypertension? I10 Dizziness? R42 Coding Level of Care Code Off vis,new,level 5 Diagnoses Bicuspid aortic valve? Q23.1 Nonrheumatic aortic (valve) stenosis? I35.0 Essential hypertension? I10 Dizziness? R42 Devonte Cullen MD CC: ? PURCHASING SPECIALIST-C Rosa Elena Alba ~ Assessment & Plan Addt'l Comments Addendum: Date: 05-19-2022: The patient underwent subsequent ambulatory event monitor. This demonstrated sinus rhythm with PACs and PVCs. Based upon the patient's clinical history and objective findings as noted in the aforementioned H&P it has been elected to proceed with additional evaluation with diagnostic cardiac catheterization. The procedure and risks have been discussed with the patient. She is agreeable to this approach. This note was generated using a voice recognition system and there may be incorrect words, spelling or punctuation that were not noted when reviewing the office note prior to saving.
[2022-05-19 09:16] LABS: Base Excess -2 mmol/L (-2 to +2); Blood Gas Specimen Type ART; PO2 77 mmHG (75-100); SO2 96 % (95-99); Total Carbon Dioxide 24 mmol/L; pCO2 35.9 mmHg (35-45); pH 7.42 (7.35-7.45)
[2022-05-19 09:55] LABS: Blood Gas Specimen Type VEN; VBG BASE EXCESS -1 mmol/L (-1.0-3.5); VBG Bicarbonate 24 mmol/L (22-26); VBG PO2 38 mmHg (25-40); VBG SO2 72 % (50-70); VBG TCO2 26 mmol/L (23-33); VBG pCO2 40.1 mmHg (41-51); VBG pH 7.39 (7.32-7.42)
[2022-05-19 10:01] LABS: Blood Gas Specimen Type VEN; VBG BASE EXCESS -1 mmol/L (-1.0-3.5); VBG Bicarbonate 24 mmol/L (22-26); VBG PO2 43 mmHg (25-40); VBG SO2 80 % (50-70); VBG TCO2 25 mmol/L (23-33); VBG pCO2 37.8 mmHg (41-51); VBG pH 7.41 (7.32-7.42)
[2022-05-19 10:06] LABS: Blood Gas Specimen Type VEN; VBG BASE EXCESS 0 mmol/L (-1.0-3.5); VBG Bicarbonate 25 mmol/L (22-26); VBG PO2 37 mmHg (25-40); VBG SO2 70 % (50-70); VBG TCO2 26 mmol/L (23-33); VBG pH 7.39 (7.32-7.42)
--- NOTE | 2022-05-19 11:12 | CL.D_ITS ---
Patient Name: JENARO WILSON Study Date: 05/19/2022 Performing: Devonte Cullen MD Ht: 65 inches 165.1 cm : 1960 Wt: 181 lbs 82.1 kg Age: 61 Gender: female BSA: 1.9 PROCEDURE(S) PERFORMED DC06-(59040)RHC/LHC/COR CLINICAL PROFILE AND INDICATIONS Indications: Valvular Disease, Pre-Operative Evaluation Heart Failure: None Stress/Imaging Stress/Image Study Performed: No Angina Classification Anginal Classification w/in 2 Weeks: No symptoms CAD Presentations: No Sxs, no angina. CONCLUSIONS Right heart pressures - borderline to mildly elevated The patient has pulmonary hypertension which is borderline - mild. Intracardiac shunting: None [place] Multivessel CAD (non obstructive) Aortic Valve Calcification- Severe RECOMMENDATIONS Risk factor modification Medical therapy Surgery consult for valvular disease DESCRIPTION OF PROCEDURE The patient arrived to the procedure lab. The risks and benefits of the procedure as well as a full description of our services here and current unavailability of surgical backup were fully explained to the patient and/or their significant other prior to the catheterization. The Timeout was completed, verifying the correct patient and procedure. The patient's procedural site was prepped and draped in the usual fashion. Local anesthetic was given subcutaneously to right brachial region with Lidocaine 2%. Local anesthetic was given subcutaneously to right groin region with Lidocaine 2%. Using a modified Seldinger technique, arterial access was obtained via the right radial artery, a 6Fr sheath was inserted. Venous access was obtained via the right brachiocephalic vein, a 7Fr sheath was inserted. - sheath will not flush. Venous access was obtained via the right femoral vein, a 7Fr sheath was inserted. A 7Fr thermal dilution catheter was inserted and right heart pressures were recorded, it was then advanced to PA position for cardiac outputs. Thermal dilution cardiac outputs were then recorded. O2 saturations were then obtained. Left Coronary Artery selective angiography was performed in multiple views using a 5 Fr. 4.0 [place] catheter. Right Coronary Artery selective angiography was then performed in multiple views using a 6 Fr. JR 4. The Thermal dilution catheter was then removed.The venous sheath was then pulled and manual compression applied until hemostasis achieved - brachial. The arterial sheath was pulled and manual compression applied until hemostasis is achieved. - femoral. The arterial sheath was pulled and a TR Band was applied for hemostasis 10cc air CORONARY ANGIOGRAPHY DOMINANCE: Right Dominant LEFT HEART ASSESSMENT Left Ventricular Ejection Fraction: Not assessed RIGHT HEART ASSESSMENT Thermal CO: 5.02 Thermal CI: 2.65 Geo CO: 8.1 Geo CI: 4.27 PW: 11 PA: 32/14 21 RV: 31/7 13 RA: 05/26 6 PVR: 159 SVR: 1291 Right Heart pressures - elevated (borderline) Pulmonary Hypertension: borderline to mildly elevated. Pulmonary Hypertension: borderline to mildly elevated. Intracardiac shunting: None LEFT MAIN: Angiographically normal LEFT ANTERIOR DESCENDING ARTERY: Mild luminal irregularities CIRCUMFLEX ARTERY: Mild luminal irregularities RIGHT CORONARY ARTERY: Mild luminal irregularities VALVE FINDINGS: Aortic Valve Calcification - severe COMPLICATIONS No Complications PROCEDURE MEDICATIONS Fentanyl 50 mcg IV Versed 1 mg IV Fentanyl 50 mcg IV Versed 1 mg IV Oxygen: 2 L/min via nasal cannula Heparin given IA 05/19/2022 09:51:23 Verapamil 2.5mg, Ntg 100mcgs, 3000 units of Heparin given IA 05/19/2022 09:51:23 SUMMARY OF HEMODYNAMIC DATA Time AIR REST ECG 07:49:39 RA 05/26 (6) SV 09:48:19 RV 31/, 13 09:48:41 PA 32/14 (21) PA 09:49:42 PW (11) PV 09:50:41 ECG 09:58:32 ECG 09:58:52 ECG 09:59:17 AO 110/71 (87) SA 10:10:30 Type SV CO (l/m) CI (l/m/ HR Time AIR REST Thermal 65.20 5.02 2.65 77 07:49:39 Geo 105.20 8.10 4.27 77 07:49:39 Label % O2 Pres/Loc Time AIR REST PA 70 PA 10:25:14 AO 96 PV 10:25:21 SVC 72 10:25:35 IVC 80 SV 10:25:47 Signed By Devonte Cullen MD On 05/19/2022 11:11:48 Devonte Cullen MD
[2022-05-19 13:35] LABS: Blood Gas Specimen Type VEN; VBG BASE EXCESS 3 mmol/L (-1.0-3.5); VBG Bicarbonate 28 mmol/L (22-26); VBG PO2 41 mmHg (25-40); VBG SO2 74 % (50-70); VBG TCO2 30 mmol/L (23-33); VBG pCO2 47.7 mmHg (41-51); VBG pH 7.38 (7.32-7.42)
[2022-05-19 13:35] LABS: Blood Gas Specimen Type VEN; VBG BASE EXCESS 2 mmol/L (-1.0-3.5); VBG Bicarbonate 28 mmol/L (22-26); VBG PO2 32 mmHg (25-40); VBG SO2 58 % (50-70); VBG TCO2 30 mmol/L (23-33); VBG pCO2 51.6 mmHg (41-51); VBG pH 7.34 (7.32-7.42)
[2022-05-19 13:40] LABS: Blood Gas Specimen Type VEN; VBG BASE EXCESS 3 mmol/L (-1.0-3.5); VBG Bicarbonate 29 mmol/L (22-26); VBG PO2 43 mmHg (25-40); VBG SO2 73 % (50-70); VBG TCO2 31 mmol/L (23-33); VBG pCO2 56.1 mmHg (41-51); VBG pH 7.32 (7.32-7.42)
[2022-05-19 13:45] LABS: Base Excess 2 mmol/L (-2 to +2); Bicarbonate 28.1 mmol/L (22-26); Blood Gas Specimen Type ART; PO2 34 mmHG (75-100); SO2 61 % (95-99); Total Carbon Dioxide 30 mmol/L; pCO2 52.3 mmHg (35-45); pH 7.34 (7.35-7.45)
[2022-05-19 13:50] LABS: Base Excess 2 mmol/L (-2 to +2); Bicarbonate 27.4 mmol/L (22-26); Blood Gas Specimen Type ART; PO2 95 mmHG (75-100); SO2 97 % (95-99); Total Carbon Dioxide 29 mmol/L; pCO2 47.1 mmHg (35-45); pH 7.37 (7.35-7.45)
[2022-05-19 14:05] LABS: Blood Gas Specimen Type VEN; VBG BASE EXCESS 2 mmol/L (-1.0-3.5); VBG Bicarbonate 28 mmol/L (22-26); VBG PO2 34 mmHg (25-40); VBG SO2 61 % (50-70); VBG TCO2 30 mmol/L (23-33); VBG pCO2 52.9 mmHg (41-51); VBG pH 7.33 (7.32-7.42)
[2022-05-19 14:15] LABS: Blood Gas Specimen Type VEN; VBG BASE EXCESS 3 mmol/L (-1.0-3.5); VBG Bicarbonate 28 mmol/L (22-26); VBG PO2 37 mmHg (25-40); VBG SO2 66 % (50-70); VBG TCO2 30 mmol/L (23-33); VBG pCO2 51.9 mmHg (41-51); VBG pH 7.35 (7.32-7.42)
== END | disposition home or self-care (01) ==
LOC: CLSP 05-22 10:47
PROVIDERS: PCP Nurse Practitioner Family; Referring Provider Internal Medicine Cardiovascular Disease; Visit Provider Internal Medicine Cardiovascular Disease
DX: I27.20 Pulmonary hypertension, unspecified (principal); I70.0 Atherosclerosis of aorta; I25.10 Atherosclerotic heart disease of native coronary artery without angina pectoris; R42 Dizziness and giddiness; R00.2 Palpitations; I10 Essential (primary) hypertension; Z79.82 Long term (current) use of aspirin; Z79.899 Other long term (current) drug therapy; I35.0 Nonrheumatic aortic (valve) stenosis
CPT/HCPCS: 36415; 71046; 80048; 82803; 85025; 85610; 85730; 93456; 99152; 99153; J7040; C1751; C1769; C1894; Q9967

== ENCOUNTER → 2022-08-04 | Outpatient (CLI) | payer OTHER, SELFPAY ==
--- NOTE | 2022-08-04 10:00 | RAD_ITS ---
STUDY: X-RAY CHEST REASON FOR EXAM: Female, 62 years old. Cough, fever TECHNIQUE: PA and lateral views of the chest. COMPARISON: Comparison is made with prior study 05/06/2002. FINDINGS: Small left pleural effusion with left basilar atelectasis and/or infiltrate. There is no demonstrated pleural abnormality. Sternal cerclage wires are present from a prior sternotomy. Status post mitral valve replacement. Normal mediastinum and catherine. Normal visualized pulmonary arteries. Normal visualized aortic arch and descending thoracic aorta. There are degenerative changes of the visualized thoracic spine. Normal visualized ribs, clavicles, and shoulders. There is no demonstrated abnormality of the visualized soft tissue structures of the upper abdomen. RAD/Chest PA and Lateral IMPRESSION: Status post mitral valve replacement. New small left pleural effusion with left basilar atelectasis and/or infiltrate. Electronically Signed: Leo Guardado MD at 14:23 EST ,
[2022-08-04 11:22] LABS: Absolute Lymphocyte Count 1.69 X10^3/uL (0.83-4.51); Absolute Neutrophil Count 8.2 X10^3/uL (2.0-7.7); Basophil# 0.05 X10^3/uL; Basophil% 0.5 % (0-1); Eosinophil# 0.23 X10^3/uL; Eosinophils% 2.1 % (0-5); Hematocrit 34.4 % (37-47); Hemoglobin 10.6 g/dL (12.0-15.0); Lymphocyte # 1.69 X10^3/ul (0.83-4.51); Lymphocyte % 15.5 % (19-41); Mean Corp Hgb Conc 30.8 g/dL (32-36); Mean Corpuscular Hgb 27.9 pg (27.0-32.0); Mean Corpuscular Volume 90.5 fL (81-99); Mean Platelet Vol. 10.4 fl (6.2-12.0); Monocyte# 0.66 X10^3/uL; Monocyte% 6.1 % (0-10); NRBC Flagged by Analyzer 0 % (0-5); Neutrophil % 75.4 % (47-70); Platelet Count 668 K/mm3 (150-450); RBC Distribution Width CV 11.9 % (11.6-14.6); RBC Distribution Width SD 39.4 fl (35.1-43.9); White Blood Count 10.9 K/mm3 (4.4-11.0)
[2022-08-04 11:56] LABS: ALB/GLOB Ratio 0.6 RATIO (0.9-2.4); AST(SGOT) 17 U/L (15-37); Alanine Aminotransfer ALT/SGPT 32 U/L (13-56); Alkaline Phosphatase 104 U/L (45-117); Anion Gap 7 (5-15); BUN 17 mg/dL (7-18); BUN/Creat Ratio 26.3 RATIO (10-20); Calcium,Total 10.5 mg/dL (8.5-10.1); Chloride 107 mmol/L (98-107); Creatinine, Serum 0.65 mg/dL (0.55-1.02); EST Glomerular Filtration Rate 99 mL/min (>60); Est Glom Filt Rate - Afr Amer 120 mL/min (>60); Globulin 5.1 g/dL (2.2-4.2); Glucose 112 mg/dL (74-106); Potassium 3.6 mmol/L (3.5-5.1); Protein, Total 8.1 g/dL (6.4-8.2); Sodium Level 142 mmol/L (136-145)
== END | disposition home or self-care (01) ==
LOC: RAD 09:59
PROVIDERS: PCP Nurse Practitioner Family; Referring Provider Nurse Practitioner Family; Visit Provider Nurse Practitioner Family
DX: J90 Pleural effusion, not elsewhere classified (principal); R50.9 Fever, unspecified; R05.9 Cough, unspecified
CPT/HCPCS: 36415; 71046; 80053; 85025

== ENCOUNTER → 2022-08-11 | Outpatient (CLI) | payer OTHER, SELFPAY ==
--- NOTE | 2022-08-11 12:30 | RAD_ITS ---
STUDY: X-RAY CHEST REASON FOR EXAM: Female, 62 years old. left pleural effusion TECHNIQUE: PA and lateral COMPARISON: August 04, 2022 FINDINGS: Small left pleural effusion and left lower lobe atelectasis Postop change status post median sternotomy and valve replacement Normal size heart. Normal mediastinum and catherine. Normal visualized pulmonary arteries. Mildly calcified aortic arch and descending thoracic aorta. Normal visualized thoracic spine. Normal visualized ribs, clavicles, and shoulders. There is no demonstrated abnormality of the visualized soft tissue structures of the upper abdomen. There is slightly improved aeration in the left lower lobe since previous study RAD/Chest PA and Lateral IMPRESSION: Persistent small left pleural effusion and left lower lobe consolidation with slightly improved aeration since previous study. Electronically Signed: Gómez Solorzano MD at 21:55 EST ,
== END | disposition home or self-care (01) ==
LOC: RAD 12:27
PROVIDERS: PCP Nurse Practitioner Family; Visit Provider Internal Medicine Cardiovascular Disease
DX: J90 Pleural effusion, not elsewhere classified (principal); I70.0 Atherosclerosis of aorta; R91.8 Other nonspecific abnormal finding of lung field; Z95.3 Presence of xenogenic heart valve; Z87.74 Personal history of (corrected) congenital malformations of heart and circulatory system
CPT/HCPCS: 71046

== ENCOUNTER → 2022-08-17 | Outpatient (CLI) | payer OTHER, SELFPAY ==
--- NOTE | 2022-08-17 09:38 | CR.HP_ITS ---
CR - History & Physical - General Arrival date:: 08/17/22 Arrival time:: 09:38 Date of Referral:: 08/04/22 Date of CR Evaluation:: 08/17/22 Referring Physician: Dr. Devonte Cullen Primary Diagnosis: Heart valve replacement - History of Present Cardiac Event Onset Date: Enter Onset Date of cardiac illnesses in Comment field below Heart valve replacement or repair:: Yes - 06/26/22 - Sleep Disorder Evaluation Hx of Sleep Apnea: No Do you snore loudly (louder than talking or can be heard through closed doors)?: No Do you often feel tired/ fatigued/ sleepy during daytime?: No Has anyone observed you stop breathing during sleep?: No History of Hypertension (for STOP score): Yes STOP Results: Negative - Medications Home Medications: Ambulatory Orders Medication Instructions Recorded cholecalciferol (vitamin D3) 125 125 mcg PO QWEEK 04/14/22 mcg (5,000 unit) tablet aspirin 81 mg chewable tablet 81 mg PO DAILY #1 TAB 04/16/22 acetaminophen 500 mg tablet 1,000 mg PO Q6H PRN pain #120 tabs 07/21/22 metoprolol succinate 25 mg 12.5 mg PO BID 08/04/22 tablet,extended release 24 hr furosemide 40 mg tablet 40 mg PO .COMPLEX #3 tabs 08/06/22 potassium chloride 20 mEq 20 meq PO .COMPLEX 08/06/22 tablet,extended release - Allergies Allergies/Adverse Reactions: Allergies No Known Allergies Allergy (Verified 08/04/22 09:00) Advanced Directives - Advanced Directives Power of Supervisor Smoke Control: No Living Will: No Advance Directives Information Provided: No Advance Directives on File: No DNR Order?:: No Past Medical History - Covid-19 Screening Has a serious heart condition:: Yes - Past Medical Illness Medical History: Past Medical History (Last Reviewed 08/04/22 @ 09:14 by Nathan Hastings OPERATIONS RESEARCH ENGINEER, OPERATIONS RESEARCH ENGINEER-C) AC (acromioclavicular) arthritis M19.019 Alcohol use Z72.89 OCC Arthritis M19.90 Back pain M54.9 OCC Benign essential hypertension, age 0-18 I10 Biceps tendonitis on right M75.21 Bicuspid aortic valve Q23.1 Tissue , Inspiris #[address] [facility] [address] Layton Farooq 06/26/22 Essential hypertension I10 History of edema Z87.898 MILD ANKLES Hyperparathyroidism E21.3 Hypertension I10 CONTROLLED WITH MED Migraine headache G43.909 OCC Non-smoker Z78.9 Nonrheumatic aortic (valve) stenosis I35.0 Mod-Severe per ECHO 01/09/22 Partial tear of right rotator cuff M75.111 Screen for colon cancer Z12.11 Syncope R55 D/T BP MED PRN Tachycardia R00.0 Vitamin D deficiency E55.9 - Past Surgical History Surgical History: Past Surgical History (Last Reviewed 08/04/22 @ 09:14 by Nathan Hastings OPERATIONS RESEARCH ENGINEER, OPERATIONS RESEARCH ENGINEER-C) History of aortic valve replacement with bioprosthetic valve Onset Date: ~06/26/22 Z95.3 Tissue , Inspiris #[address] [facility] [address] Layton Farooq 06/26/22 History of ascending aorta repair Onset Date: ~06/26/22 Z98.890 Aortoplasty @ [facility] Dr. Layton Black 06/26/22 History of Z98.891 History of rotator cuff surgery Z98.890 Hx of colonoscopy Z98.890 Status post patent foramen ovale closure Onset Date: ~06/26/22 Z87.74 closed primarily with running prolene suture @ [facility] Dr. Layton Black 06/26/22 - Family History Summary Family History: Family History (Last Reviewed 08/04/22 @ 09:14 by Nathan Hastings OPERATIONS RESEARCH ENGINEER, OPERATIONS RESEARCH ENGINEER-C) Mother Hypertension Diabetes Sister Heart valve replaced Aortic aneurysm Social History - Smoking History Smoking Status: Never smoker Hx Tobacco Use: No - Alcohol Use Alcohol Usage: Yes - occasional - Substance Abuse Hx Substance Use: No - Occupation Occupation (List type of work in comments):: Employed Hours worked per day:: 8 - Hobbies, Recreation, Social Activities Hobbies: None Recreational Activities: I am able to engage in all my recreational activities Social Environment - Status Marital Status: - Current Living Arrangements Living Environment:: Spouse - Children How many children do you have?: 1 Do any of your children live nearby?: No - Safety Do you feel safe in your surroundings?: Yes - Assistance Do you need any assistance at home?: no Review of Systems - Review of Systems Hints: Right click = Denies (Slash). Left click = Reports ([place]) Review of Present Symptoms: Reports: Shortness of Breath with Exertion, Operative Discomfort, Fatigue, Appetite - Normal, Appetite - Special Diet, Sleep - Normal. Denies: Shortness of Breath at Rest, PVD, Angina, Wound Healing, Dizziness/Lightheadedness, Heart Arrhythmia/Irregularities, Sexual Changes - Pain Is Patient Pain Free?: No Pain Location: other - incisional Pain Level: 09/25 Risk Factor Assessment - Vital Signs Pulse Ox: 97 - Pulse Pulse Rate: 91 Pulse Rhythm: Regular - Hypertension Blood Pressure Sitting - Left Arm: 100/70 - Diabetes Nutrition Referral for Diabetes: No - Obesity Height: 5 ft 5 in Weight:: 77.564 kg Weight in Pounds: 171.0 lbs Body Mass Index (BMI): 28.4 Nutritional Referral for Obesity: No - declines - Physical Inactivity Physical Inactivity: Reg Exercise 30 min/day - using treadmill at home - Risk Stratification Risk Guidelines: Lowest Risk: Risk Factor for Smoking, Moderate Risk: Risk Factor for Dyslipidemia, Risk Factor for Diabetes, Risk Factor for Obesity, Risk Factor for Sedentary Lifestyle, Risk Factor for Depression, Highest Risk: Risk Factor for Hypertension - Family History Family History: Family History (Last Reviewed 08/04/22 @ 09:14 by Nathan Hastings OPERATIONS RESEARCH ENGINEER, OPERATIONS RESEARCH ENGINEER-C) Mother Hypertension Diabetes Sister Heart valve replaced Aortic aneurysm Motivation - Motivation to Participate On a scale of 1 to 10, how prepared are you to commit to attending program?: 10 What do you see as barriers to successfully being able to complete the program?: nothing What do you see as the benefits of succesfully completing the program? In other words, what do you hope to get out of participating in the program?: more energy Are there issues you are dealing with that will interfere with completing the program?: no Do you have a spouse or signficant other, family or friends who will help support you to complete the program?: yes
[2022-08-17 10:21] VITALS: BP 100/70; PULSE 91; O2SAT 97; BMI 28.4
--- NOTE | 2022-08-17 10:21 | CR.ITP_ITS ---
Diagnosis - General Information Admitting Diagnosis: Heart valve replacement Personal Learning Style:: Audio/Visual, Demonstration, Group, Individual Preference, Written Stage of change r/t lifestyle modifications:: Contemplation Gave educational material for:: Treating Heart Disease, Emotions & Heart Disease, Stress Management & Relaxation, Sleep Disorders & Heart Disease, How The Heart Works, What it means to have Heart Disease, How Coronary Artery Disease is Diagnosed, Heart Procedures, What Heart Medications Do, Risk Factors & Modifications, Living an Active Life, Nutrition - Education/Goals Cardiac Rehabilitation Goals: 1. Maintain the individual as the primary focus of care. 2. To improve the patient's quality of life. 3. Identification of cardiac risk factors and provide cardiac risk factor management. 4. Enhance the psychosocial status of the patient. 5. Reconditioning enough to allow the patient to resume customary activities. 6. Control symptoms of cardiac disease Personal Goals: Initial Assessment: Improve energy level, Participate in home exercise program, Get back to work, or to resume activities faster, Improve muscle strength and endurance, Improve diet and eating habits (eat healthier), Control risk factors (learn risk factor modification) Scale for measuring improvement of personal goals: Enter appropriate number in Comments. 2 = Unchanged. 3 = Slightly Better. 4 = Moderate Improvement. 5 = Met my Goal Exercise - Initial Assessment - Visit Date of Eval: 08/17/22 - initial eval Mets: Pre-: >3 METS for 30 minutes by discharge, >5 METS for 30 minutes by discharge, >7 METS for 30 minutes by discharge, Unable to meet goal due to: (see comment below) - Physician Prescribed Exercise Modalities: Treadmill, Airdyne, NuStep, SciFit, Lateral [place] Frequency: 3x/week for 12 weeks [36 sessions] Intensity: 60-80% of age predicted maximum heart rate reserve Current METSs:: 4 Target Heart Rate:: 103-119 week 1-3 Resting Blood Pressure: 100/70 EKG Type: SR - Outcomes & Goals Goals:: Verbalizes understanding of THR, RPE & goal METS by session 6, Documents in home exercise log/reports 30 min aerobic 5 day/wk by DC, Demonstrates accurate pulse taking by DC, Other additional outcome/goals: see below - Intervention & Plan Exercise Program Goals: Instruct on personal THR & RPE, Instruct on MET level & personal MET goal, Show patient to take own pulse /validate performance until accurate, Instruct on home exercise, Other additional plan/int - Physical Activity Home Exercise Physical Activity - Home Exercise: Safe Exercise, Warm-up, Self-monitoring, Cool-Down, Home Exercise > 30 min Daily, Sitting Time <3 hours/daily - Outcomes & Goals Outcomes/Goals: Demonstrates correct Warm-up/exercise Cool-Down (S3) if = 2.5 METs, Verbalizes symptoms of exercise intolerance by Session 3 (S3), Demonstrate safe equipment use (S3) & follows exercise prescrition (6), Other: See below - Intervention & Plan Plan/Intervention: Instruct warm-up & cool-down if exercising at > 2 METs, Instruct on symptoms of exercise intolerance & actions to take, Instruct & monitor on saf, Assess intial functional capacity & safety risk, Other See below Nutrition - Initial Assessment - Program Goals Nutrition Program Goals: LDL <100 optimal. 100 - 129 Near optimal. 130 - 159 Borderline High. 160 - 189 High. Total Cholesterol <200 desirable. 200 - 239 Borderline High. >/= 240 High. HDL < 40 Low >/=60 High. Triglycerides <150 desirable. <199 optimal. VlDL 5 - 40. HgbA1C <7%. BMI <25 Patient has diagnosis of Hyperlipidemia (ICD E78)?: No - Visit Date of Assessment:: 08/17/22 - initial eval - Cholesterol/Lipids (Other Core Measures) Determine presence & major risk factors that modify LDL goal: Hypertension or hypertensive medication, Low HDL cholesterol <40 mg/dL*, Family history of premature CHD in Male < 55 years: female <65 yearsFa, Age men > 45 years; women >/= 55 years Outcomes/Goals: Pt IDs own risk factors & lifestyle modifications by Session 10, Verbalizes symptoms of angina & response by session 3., Pt independently manages, Other Additional Outcomes/Goals: Intervention/Plan: Advocate for lipid panel cholesterol medication if applicable, Instruct on personal lipid levels & lipid goals/NCEP guidelines, Instruct on cholesterol, Other additional plan/int Referral to dietitian:: No - declines - Diabetes (Other Core Measures) Diabetes Type: Not Applicable - Weight Mgt (Other Care) Height: 5 ft 5 in Weight:: 77.564 kg BMI: 28.4 Diagnosis Overweight/Obesity BMI> 30% ICD-10 E66: No Diagnosis High BMI/Morbid Obesity BMI> 35% ICD-10 Z68: No Outcomes/Goals: Pt sets, maintains & shows weight loss goal & trend during rehab, Other additional outcomes/goals Intervention/Plan: Instruct on ideal BMI & set weight loss goal w/patient, Assist pt to ID & incorporate diet changes for weight loss by S9, Refer to Structured Weight Loss program as appropriate, Encourage goal of using 250- 300dcal per session for weight loss, Other additional plan/interventions - Healthy Eating Habits Will attend diet classes:: Yes Outcomes/Goals:: Consume diet rich in vegs,fruits,whole grain/high fiber,fis h,lean meat, Limit sat/trans fats,cholesterol & added salts & sugars, Other additional outcome/goals: Intervention/Plan:: Assess current eating habits, Other Additional plan/i nterventions - Education Gave educational materials for:: Signs & symptoms of hypoglycemia, Signs & symptoms of hyperglycemia, Relate diabetes to coronary artery disease, Healthy eating Nutrition - 30-Day Assessment Nutrition - 60-Day Assessment Nutrition - 90-Day Assessment Nutrition - Final Assessment Core - Initial Assessment - Visit Date of Eval: 08/17/22 - initial eval - Medication Compliance Preventative Medication(s):: Aspirin, Beta cathy H/O mental health issues: depression, anxiety, or addiction?: No Doesn?t believe in the benefits of treatment?: No Believes medications are unnecessary or harmful?: No Has a concern about medication side effects?: No Expresses concern over the cost of medications?: No Outcomes/Goals: Verbalizes medications,desired effect & common side effects @ DC, Pt self-reports following medication regimen, Keeps card in wallet w/medications listed by DC, Other additional outcome/goals: Interventions/plans: Instruct on medication effects & side effects, Review medication list w/patient every two weeks, Instruct importance of taking meds as ordered & assist problem solving, Other additional - Tobacco Use Tobacco Use: Non-smoker Do you use smokeless tobacco?: No - Hypertension Hypertension Diagnosis:: Hypertension ICD-10 I10 Resting Blood Pressure:: 100/70 [place] [employer] Hypertension Guidelines: [place] [employer] Hypertension Guidelines. Normal BP Less than 120/80. Elevated BP 120/80. Hypertension Stage 1: BP 130-139/80-89. Hypertesnion Stage 2: BP 140 or higher/90 or higher. Hypertension Crisis: BP higher than 180/120 Outcomes/Goals: Able to verbalize/achieve optimal blood pressure <130/80, Incorporates diet changes & exercise for blood pressure control by DC, Other additional outcomes/goals Interventions/plan: Instruct on optimal blood pressure, hypertension & medications, Instruct on effects of sodium, alcohol, stress, exercise &hypertension, Other additional plan/interventions - Tobacco Cessation Referral Smoking Cessation Referral:: No Individual Education/Counseling:: No Education Schedule Given:: Yes Core - 30-Day Assessment Core - 60-Day Assessment Core - 90 Day Assessment Core - Final Assessment Psychosocial - Initial Assess - VIsit Date of Eval: 08/17/22 - initial eval History of previous Mental disease:: No - Outcomes/Goals: See list Psychosocial Outcomes/Goals:: ID's personal stressors & 2 strategies to manage stress by discharge, Other Additional outcome/goals: - Intervention/Plan: See List Interventions/Plan:: Assess stressors,coping strategies & signs of derpression on admission, Instruct/assist pt to develop coping & personal stress Mgt strategies, Refer to Behavioral Health if appropriate, Refer to Physician if appropriate, Instruct patient to recognize signs & symptoms of depression, Instruct patient to recog, Other additional plan/intervention Psychosocial - 30-Day Assess Psychosocial - 60-Day Assess Psychosocial - 90-Day Assess Psychosocial - Final Assessmen Patient Health Questionnaire Initial Assessment 1. Little interest or pleasure in doing things: Not at all 2. Feeling down, depressed, or hopeless: Not at all 3. Trouble falling or staying asleep, or sleeping too much: Not at all 4. Feeling tired or having little energy: Several days 5. Poor appetite or overeating: Not at all 6. Feeling bad about yourself -- or that you are a failure or have let yourself or your family down: Not at all 7. Trouble concentrating on things, such as reading the newspaper or watching television: Not at all 8. Moving or speaking so slowly that other people could have noticed. Or the opposite - being so fidgety or restless that you have been moving around a lot more than usual: Not at all 9. Thoughts that you would be better off , or of hurting yourself in some way: Not at all How difficult have these problems made it for you to do your work, take care of things at home, or get along with other people?: Not difficult at all Total Score: 1 MOUSTAPHA-Q SV Test - Statements CAD is a disease of the arteries in the heart: True Examples of risk factors for heart disease: True Angina is chest pain or discomfort: True The benefits of resistance training include: True Eating more meat and dairy products: I Don't Know Anti-platelet medications such as aspirin are important: I Don't Know The only effective way to manage stress: False An exercise warm-up slowly increases heart rate: True Prepared, processed foods usually have high sodium: True Depression is common after a heart attack: True The statin medications lower cholesterol: I Don't Know To control blood pressure, lower the amount of sodium: True If someone gets chest discomfort during walking: False Transfats are partially hydrogenated vegetable oils: True Sleep apnea that is not treated increases the risk: I Don't Know To control cholesterol, one should become a vegetarian: I Don't Know Someone knows if he/she is exercising at the right level: True Diabetes cannot be prevented with exercise & health eating: I Don't Know Stress is a large risk for heart attack: True A diet that can help lower blood pressure is rich in: True - Total Score Total Correct Responses: 13 Self-Efficacy Initial Assessment We would like to know how confident you are in doing certain activities. Please select your confidence level for:: Select your confidence level for the cecilio wing using the scale 1-10 where 1 is not at all confident and 10 is totally confident. Your score is the average of all 6 responses. Fatigue: How confident are you that you can keep the fatigue caused by your disease from interfering with the things you want to do? Select Number: 10 Physical Discomfort or Pain: How confident are you that you can keep the physical discomfort or pain of your disease from interfering with the things you want to do? Select Number: 7 Emotional Distress: How confident are you that you can keep the emotional distress caused by your disease from interfering with the things you want to do? Select Number: 10 Other Symptoms or Health Problems: How confident are you that you can keep other symptoms or health problems from interfering with the things you want to do? Select Number: 9 Different Tasks and Activities: How confident are you that you can do the different tasks and activities needed to manage your health condition so as to reduce your need to see a doctor? Select Number: 10 Medication: How confident are you that you can do things other than just taking medication to reduce how much your illness affects your everyday life? Select Number: 10 Total Score:: 9 Nutrition Survey - Nutrition Survey Initial Have you lost >10 lbs over the past 2 months without trying?: Yes Are you following a special diet at home for diabetes, low fat, or low salt?: Yes Are you interested in meeting with a dietitian for help understanding your diet?: No Do you eat less than 3 meals a day?: Yes Do you eat fatty meats (anthony, sausage, ribs, etc), fried foods, desserts, large amounts of salad dressings, margarine, butter, or cheese most days?: No Do you have food allergies? [Enter types in comment field]: No Do you eat in restaurants more than 3 times a week?: No Do you season food with salt, seasoning salt, or garlic salt?: No Do you used canned, boxed, frozen meals, or soups, seasoning packets?: Yes Total Score:: 4
[2022-08-17 10:32] VITALS: BP 100/70; BMI 28.4
== END | disposition home or self-care (01) ==
LOC: CR 09:31
PROVIDERS: PCP Nurse Practitioner Family; Visit Provider Internal Medicine Cardiovascular Disease
DX: Z95.4 Presence of other heart-valve replacement (principal); I10 Essential (primary) hypertension; R06.02 Shortness of breath; G89.18 Other acute postprocedural pain; R53.83 Other fatigue; Z95.3 Presence of xenogenic heart valve; Z98.890 Other specified postprocedural states

== ENCOUNTER → 2022-08-20 | Outpatient (CLI) | payer OTHER, SELFPAY ==
[2022-08-17 10:32] VITALS: BMI 28.4
[2022-08-20 15:06] LABS: Absolute Lymphocyte Count 1.64 X10^3/uL (0.83-4.51); Absolute Neutrophil Count 3.8 X10^3/uL (2.0-7.7); Basophil# 0.06 X10^3/uL; Eosinophil# 0.25 X10^3/uL; Eosinophils% 4.1 % (0-5); Hematocrit 34.3 % (37-47); Hemoglobin 10.5 g/dL (12.0-15.0); Lymphocyte # 1.64 X10^3/ul (0.83-4.51); Lymphocyte % 26.9 % (19-41); Mean Corp Hgb Conc 30.6 g/dL (32-36); Mean Corpuscular Volume 88.2 fL (81-99); Mean Platelet Vol. 9.9 fl (6.2-12.0); Monocyte# 0.36 X10^3/uL; Monocyte% 5.9 % (0-10); NRBC Flagged by Analyzer 0 % (0-5); Neutrophil # 3.77 X10^3/uL (2.7-7.7); Neutrophil % 61.8 % (47-70); Platelet Count 482 K/mm3 (150-450); RBC Distribution Width CV 12.6 % (11.6-14.6); RBC Distribution Width SD 40.1 fl (35.1-43.9); Red Blood Count 3.89 M/mm3 (4.2-5.4); White Blood Count 6.1 K/mm3 (4.4-11.0)
[2022-08-20 15:36] LABS: Anion Gap 7 (5-15); BUN 15 mg/dL (7-18); Chloride 107 mmol/L (98-107); Creatinine, Serum 0.71 mg/dL (0.55-1.02); EST Glomerular Filtration Rate 88 mL/min (>60); Est Glom Filt Rate - Afr Amer 107 mL/min (>60); Glucose 104 mg/dL (74-106); Potassium 3.7 mmol/L (3.5-5.1); Sodium Level 142 mmol/L (136-145)
== END | disposition home or self-care (01) ==
LOC: LAB 14:41
PROVIDERS: PCP Nurse Practitioner Family; Visit Provider Nurse Practitioner Gerontology
DX: Z95.3 Presence of xenogenic heart valve (principal); I10 Essential (primary) hypertension
CPT/HCPCS: 36415; 80048; 85025

== ENCOUNTER → 2022-08-28 | Outpatient (CLI) | payer OTHER, SELFPAY ==
[2022-08-17 10:32] VITALS: BMI 28.4
[2022-08-28 13:42] LABS: Vitamin B12 220 pg/mL (211-911)
[2022-08-28 13:55] LABS: Ferritin 90 ng/mL (8-252); Iron 47 ug/dL (50-170); Iron Binding Capacity,Total 285 ug/dL (250-450)
== END | disposition home or self-care (01) ==
LOC: LAB 12:30
PROVIDERS: PCP Nurse Practitioner Family; Referring Provider Nurse Practitioner Family; Visit Provider Nurse Practitioner Family
DX: D50.0 Iron deficiency anemia secondary to blood loss (chronic) (principal)
CPT/HCPCS: 36415; 82607; 82728; 82746; 83540; 83550

== ENCOUNTER 2022-09-14 14:30 | Outpatient (RCR) | payer OTHER, SELFPAY ==
[2022-08-17 10:32] VITALS: BMI 28.4
== END 2022-09-15 23:59 ==
LOC: CR 14:30
PROVIDERS: PCP Nurse Practitioner Family; Referring Provider Internal Medicine Cardiovascular Disease; Visit Provider Internal Medicine Cardiovascular Disease
DX: Z95.3 Presence of xenogenic heart valve (principal); Z87.74 Personal history of (corrected) congenital malformations of heart and circulatory system
CPT/HCPCS: 93798

== ENCOUNTER → 2022-09-22 | Outpatient (CLI) | payer OTHER, SELFPAY ==
[2022-08-17 10:32] VITALS: BMI 28.4
[2022-09-18 08:38] VITALS: BMI 29.1
--- NOTE | 2022-09-22 14:49 | ECHOD_ITS ---
Reason For Study: S/P AVR Procedure This was a 2D Doppler, Color Flow transthoracic echocardiogram. The study was technically difficult. Exam performed in department. Left Ventricle Based upon the 2D echocardiographic images obtained there appears to be grossly normal left ventricular size, wall motion, and systolic function. The estimated ejection fraction is 55 %. No evidence for diastolic dysfunction. Right Ventricle Normal RV size. Normal systolic function. Atria Normal left atrium. Normal right atrium. No doppler evidence for ASD. Mitral Valve There is no mitral annular calcification. Normal mitral valve. Trivial mitral valve insufficiency. Tricuspid Valve Normal tricuspid valve. Trivial tricuspid valve insufficiency. Unable to estimate RV systolic pressure/pulmonary artery pressure due to technically difficult study. Aortic Valve Mild aortic stenosis. Stable appearing bioprosthetic aortic valve apparatus. Pulmonic Valve The pulmonic valve is not well visualized. Trivial pulmonic valve insufficiency. Great Vessels Aortic root repair. Pericardium/Pleural No pericardial effusion. MMode/2D Measurements & Calculations LVIDd: 4.5 cm IVSd: 1.3 cm LVOT diam: 2.2 cm LVIDs: 2.8 cm LVPWd: 0.92 cm LVOT area: 3.9 cm2 FS: 37.6 % Ao root diam: 3.1 cm LAV(MOD-sp4): 40.5 ml LVAd ap4: 28.4 cm2 LVLd ap4: 8.4 cm EDV(MOD-sp4): 79.0 ml EDV(sp4-el): 81.3 ml LVAs ap4: 18.2 cm2 LVLs ap4: 7.3 cm ESV(MOD-sp4): 38.5 ml ESV(sp4-el): 38.4 ml EF(MOD-sp4): 51.3 % EF(sp4-el): 52.8 % SV(MOD-sp4): 40.5 ml SV(sp4-el): 43.0 ml LA A4 area: 16.0 cm2 RA A4 area: 9.9 cm2 Time Measurements MV dec time: 0.26 sec Doppler Measurements & Calculations MV E max forrest: 57.7 cm/sec Lat Peak E' Forrest: 8.5 cm/sec Med Peak E' Forrest: 6.6 cm/sec MV A max forrest: 58.5 cm/sec E/E' lat: 6.8 E/E' med: 8.8 MV E/A: 0.99 MV V2 max: 75.5 cm/sec Ao V2 max: 175.5 cm/sec MV max P.3 mmHg MV dec slope: 228.0 cm/sec2 Ao max P.5 mmHg MV V2 mean: 47.2 cm/sec Ao V2 mean: 127.0 cm/sec MV mean P.0 mmHg Ao mean P.3 mmHg MV V2 VTI: 20.4 cm Ao V2 VTI: 34.8 cm AV (velocity ratio): 0.48 MVA(VTI): 3.1 cm2 MAURO(I,D): 1.8 cm2 MAURO(V,D): 1.7 cm2 LV V1 max: 78.0 cm/sec SV(LVOT): 64.1 ml PA V2 max: 83.9 cm/sec LV V1 max P.5 mmHg PA V2 mean: 60.5 cm/sec LV V1 mean P.4 mmHg LV V1 mean: 55.9 cm/sec LV V1 VTI: 16.6 cm ECHO/Echo Complete Interpretation Summary The study was technically difficult. Based upon the 2D echocardiographic images obtained there appears to be grossly normal left ventricular size, wall motion, and systolic function. The estimated ejection fraction is 55 %. Trivial mitral valve insufficiency. Trivial tricuspid valve insufficiency. Stable appearing bioprosthetic aortic valve apparatus. Mild aortic stenosis. Trivial pulmonic valve insufficiency. Aortic root repair. Unable to estimate RV systolic pressure/pulmonary artery pressure due to techni florence difficult study. No evidence for diastolic dysfunction. Ordering Physician: Vianey De La Garza Referring Physician: Vianey De La Garza Performed By: Darshana Vargas RCS
== END | disposition home or self-care (01) ==
LOC: CVS 14:48
PROVIDERS: PCP Nurse Practitioner Family; Referring Provider Nurse Practitioner Gerontology; Visit Provider Nurse Practitioner Gerontology
DX: Z95.3 Presence of xenogenic heart valve (principal); Z87.74 Personal history of (corrected) congenital malformations of heart and circulatory system
CPT/HCPCS: 93306

== ENCOUNTER → 2022-10-14 | Outpatient (CLI) | payer OTHER, SELFPAY ==
[2022-09-18 08:38] VITALS: BMI 29.1
[2022-10-14 16:18] LABS: Vitamin B12 486 pg/mL (211-911)
[2022-10-14 16:28] LABS: Ferritin 43 ng/mL (8-252); Iron 90 ug/dL (50-170); Iron Binding Capacity,Total 328 ug/dL (250-450)
== END | disposition home or self-care (01) ==
LOC: LAB 14:42
PROVIDERS: PCP Nurse Practitioner Family; Referring Provider Nurse Practitioner Family; Visit Provider Nurse Practitioner Family
DX: D50.0 Iron deficiency anemia secondary to blood loss (chronic) (principal)
CPT/HCPCS: 36415; 82607; 82728; 82746; 83540; 83550

== ENCOUNTER 2022-10-16 14:30 | Outpatient (RCR) | payer OTHER, SELFPAY ==
[2022-08-17 10:32] VITALS: BMI 28.4
--- NOTE | 2022-09-18 08:31 | CR.ITP_ITS ---
Diagnosis Exercise - 30-day Assessment - Visit Date of Eval: 09/18/22 Session #:: 13 - Physician Prescribed Exercise Modalities: Treadmill, Airdyne, NuStep Frequency: 3x/week for 12 weeks [36 sessions] Intensity: 60-80% of age predicted maximum heart rate reserve Duration: 30 - 45 minutes Current METSs:: 6.0 Target Heart Rate:: 103-145 Current RPE:: 12-14 Maximum Excercise HR:: 141 Resting Blood Pressure: 132/88 Maximum Exercise Blood Pressure: 140/78 EKG Type: NSR to sinus tach w/rare PACs PVCs Current Physical Activity or Exercising minutes: 37 - Outcomes & Goals Goals:: Verbalizes understanding of THR, RPE & goal METS by session 6, Documents in home exercise log/reports 30 min aerobic 5 day/wk by DC, Demonstrates accurate pulse taking by DC - Intervention & Plan Exercise Program Goals: Instruct on personal THR & RPE, Instruct on MET level & personal MET goal, Show patient to take own pulse /validate performance until accurate, Instruct on home exercise - 30-day Reassessments 30 day Reassessments:: Progressing - Physical Activity Home Exercise Physical Activity - Home Exercise: Safe Exercise, Warm-up, Self-monitoring, Cool-Down, Home Exercise > 30 min Daily, Sitting Time <3 hours/daily - Outcomes & Goals Outcomes/Goals: Demonstrates correct Warm-up/exercise Cool-Down (S3) if = 2.5 METs, Verbalizes symptoms of exercise intolerance by Session 3 (S3), Demonstrate safe equipment use (S3) & follows exercise prescrition (6) - Intervention & Plan Plan/Intervention: Instruct warm-up & cool-down if exercising at > 2 METs, Instruct on symptoms of exercise intolerance & actions to take, Instruct & monitor on saf, Assess intial functional capacity & safety risk - 30-day Reassessments 30 day Reassessments:: Met Nutrition - Initial Assessment Nutrition - 30-Day Assessment - Program Goals Nutrition Program Goals: LDL <100 optimal. 100 - 129 Near optimal. 130 - 159 Borderline High. 160 - 189 High. Total Cholesterol <200 desirable. 200 - 239 Borderline High. >/= 240 High. HDL < 40 Low >/=60 High. Triglycerides <150 desirable. <199 optimal. VlDL 5 - 40. HgbA1C <7%. BMI <25 Patient has diagnosis of Hyperlipidemia (ICD E78)?: Yes - Visit Date of Assessment:: 09/18/22 Session #:: 13 - Cholesterol/Lipids (Other Core Measures) Triglycerides (mg/dL): 105 Total Cholesterol (mg/dL): 184 LDL Cholesterol (mg/dL): 97 HDL Cholesterol (mg/dL): 66 Determine presence & major risk factors that modify LDL goal: Hypertension or hypertensive medication, Family history of premature CHD in Male < 55 years: female <65 yearsFa, Age men > 45 years; women >/= 55 years Outcomes/Goals: Pt IDs own risk factors & lifestyle modifications by Session 10, Verbalizes symptoms of angina & response by session 3., Pt independently manages Intervention/Plan: Instruct on personal lipid levels & lipid goals/NCEP guidelines, Instruct on cholesterol Referral to dietitian:: Yes - Medical Nutrition Therapy 30-day Reassessments:: Progressing - Diabetes (Other Core Measures) Diabetes Type: Not Applicable - Weight Mgt (Other Care) Height: 5 ft 5 in Weight:: 175 lb BMI: 29.1 Diagnosis Overweight/Obesity BMI> 30% ICD-10 E66: No Diagnosis High BMI/Morbid Obesity BMI> 35% ICD-10 Z68: No Outcomes/Goals: Pt sets, maintains & shows weight loss goal & trend during rehab Intervention/Plan: Instruct on ideal BMI & set weight loss goal w/patient 30 day Reassessments:: Met - Healthy Eating Habits Will attend diet classes:: Yes Outcomes/Goals:: Consume diet rich in vegs,fruits,whole grain/high fiber,fish,lean meat, Limit sat/trans fats,cholesterol & added salts & sugars Intervention/Plan:: Assess current eating habits 30-day Reassessments:: Progressing - Education Gave educational materials for:: Healthy eating Nutrition - 60-Day Assessment Nutrition - 90-Day Assessment Nutrition - Final Assessment Core - Initial Assessment Core - 30-Day Assessment - Visit Date of Eval: 09/18/22 Session #:: 13 - Medication Compliance Preventative Medication(s):: Aspirin, Beta cathy H/O mental health issues: depression, anxiety, or addiction?: No Doesn?t believe in the benefits of treatment?: No Believes medications are unnecessary or harmful?: No Has a concern about medication side effects?: No Expresses concern over the cost of medications?: No Outcomes/Goals: Verbalizes medications,desired effect & common side effects @ DC, Pt self-reports following medication regimen, Keeps card in wallet w/medications listed by DC Interventions/plans: Instruct on medication effects & side effects, Review medication list w/patient every two weeks, Instruct importance of taking meds as ordered & assist problem solving 30-day Reassessments:: Progressing - Tobacco Use Tobacco Use: Non-smoker - Hypertension Hypertension Diagnosis:: Hypertension ICD-10 I10 Resting Blood Pressure:: 108/72 [place] [employer] Hypertension Guidelines: [place] [employer] Hypertension Guidelines. Normal BP Less than 120/80. Elevated BP 120/80. Hypertension Stage 1: BP 130-139/80-89. Hypertesnion Stage 2: BP 140 or higher/90 or higher. Hypertension Crisis: BP higher than 180/120 Peak Exercise Blood Pressure:: 170/100 Outcomes/Goals: Able to verbalize/achieve optimal blood pressure <130/80, Incorporates diet changes & exercise for blood pressure control by DC Interventions/plan: Instruct on optimal blood pressure, hypertension & medications, Instruct on effects of sodium, alcohol, stress, exercise &hypertension 30 day Reassessments:: Met - Tobacco Cessation Referral Smoking Cessation Referral:: No Individual Education/Counseling:: No Education Schedule Given:: Yes - Patient participates in group education Core - 60-Day Assessment Core - 90 Day Assessment Core - Final Assessment Psychosocial - Initial Assess Psychosocial - 30-Day Assess - VIsit Date of Eval: 09/18/22 Session #:: 13 Not Applicable: Yes History of previous Mental disease:: No - Psychosocial Test Tool Used:: PHQ-9 Questionnaire phq-9 Severity: Severity. 1-4 Minimal Depression. 5-9 Mild Depression. 10-14 Moderate Depression. 15-19 Moderately Sever Depression. 20-27 Severe Depression. Rule: - Referral to Behavioral Health PS - Interventions: Yes Attend Stress Management Classes, No Referral to Behavioral Health if PHQ-9 score >9:, No Referral to [facility], No Referral to Physician if PHQ-9 if score is 5-9: - Outcomes/Goals: See list Psychosocial Outcomes/Goals:: ID's personal stressors & 2 strategies to manage stress by discharge - Intervention/Plan: See List Interventions/Plan:: Assess stressors,coping strategies & signs of derpression on admission, Instruct/assist pt to develop coping & personal stress Mgt strategies - 30-day Reassessments: 30 day Reassessments:: Met Psychosocial - 60-Day Assess Psychosocial - 90-Day Assess Psychosocial - Final Assessmen Patient Health Questionnaire 30-Day Re-eval Assessment 1. Little interest or pleasure in doing things: Not at all 2. Feeling down, depressed, or hopeless: Not at all 3. Trouble falling or staying asleep, or sleeping too much: Not at all 4. Feeling tired or having little energy: Several days - Recovering and working fulltime 5. Poor appetite or overeating: Not at all 6. Feeling bad about yourself -- or that you are a failure or have let yourself or your family down: Not at all 7. Trouble concentrating on things, such as reading the newspaper or watching television: Not at all 8. Moving or speaking so slowly that other people could have noticed. Or the opposite - being so fidgety or restless that you have been moving around a lot more than usual: Not at all Total Score: 1 Self-Efficacy 30-Day Re-eval Assessment We would like to know how confident you are in doing certain activities. Please select your confidence level for:: Select your confidence level for the following using the scale 1-10 where 1 is not at all confident and 10 is totally confident. Your score is the average of all 6 responses. Fatigue: How confident are you that you can keep the fatigue caused by your disease from interfering with the things you want to do? Select Number: 10 Physical Discomfort or Pain: How confident are you that you can keep the physical discomfort or pain of your disease from interfering with the things you want to do? Select Number: 8 Emotional Distress: How confident are you that you can keep the emotional distress caused by your disease from interfering with the things you want to do? Select Number: 10 Other Symptoms or Health Problems: How confident are you that you can keep other symptoms or health problems from interfering with the things you want to do? Select Number: 10 Different Tasks and Activities: How confident are you that you can do the different tasks and activities needed to manage your health condition so as to reduce your need to see a doctor? Select Number: 10 Medication: How confident are you that you can do things other than just taking medication to reduce how much your illness affects your everyday life? Select Number: 10 Total Score:: 9 Nutrition Survey
[2022-09-18 08:38] VITALS: BP 108/72; BP 132/88; BP 170/100; BMI 29.1
== END 2022-10-16 23:59 ==
LOC: CR 14:30
PROVIDERS: PCP Nurse Practitioner Family; Referring Provider Internal Medicine Cardiovascular Disease; Visit Provider Internal Medicine Cardiovascular Disease
DX: Z95.3 Presence of xenogenic heart valve (principal); Z87.74 Personal history of (corrected) congenital malformations of heart and circulatory system; Z98.890 Other specified postprocedural states
CPT/HCPCS: 93798

== ENCOUNTER 2022-11-09 14:30 | Outpatient (RCR) | payer OTHER, SELFPAY ==
[2022-09-18 08:38] VITALS: BMI 29.1
[2022-10-17 00:57] VITALS: BP 108/72; BP 132/88; BP 170/100
== END 2022-11-15 23:59 ==
LOC: CR 14:30
PROVIDERS: PCP Nurse Practitioner Family; Referring Provider Internal Medicine Cardiovascular Disease; Visit Provider Internal Medicine Cardiovascular Disease
DX: Z95.3 Presence of xenogenic heart valve (principal); Z87.74 Personal history of (corrected) congenital malformations of heart and circulatory system; Z98.890 Other specified postprocedural states
CPT/HCPCS: 93798

== ENCOUNTER 2022-11-16 10:58 | Outpatient (RCR) | payer OTHER, SELFPAY ==
[2022-09-18 08:38] VITALS: BMI 29.1
[2022-11-16 00:20] VITALS: BP 108/72; BP 132/88; BP 170/100
== END 2022-12-16 23:59 ==
LOC: CR 10:58
PROVIDERS: PCP Nurse Practitioner Family; Referring Provider Internal Medicine Cardiovascular Disease; Visit Provider Internal Medicine Cardiovascular Disease
DX: Z95.3 Presence of xenogenic heart valve (principal); Z87.74 Personal history of (corrected) congenital malformations of heart and circulatory system; Z98.890 Other specified postprocedural states
CPT/HCPCS: 93798

== ENCOUNTER → 2023-03-04 | Outpatient (CLI) | payer OTHER, SELFPAY ==
[2022-09-18 08:38] VITALS: BMI 29.1
--- NOTE | 2023-03-04 14:13 | BI_ITS ---
MAMMOGRAPHY - BILATERAL SCREENING REASON FOR EXAM: Female, 62 years old. Routine annual screening examination. PERTINENT HISTORY: Non-contributory. TECHNIQUE: Digital bilateral breast stephani (3D mammographic acquisition) in the CC and MLO projections. 2-D mediolateral oblique (MLO) and craniocaudad (CC) views of both breasts were obtained. CAD: Full Field Digital Mammography with Computer Added Detection was performed. COMPARISON: Comparison is made with prior study of April 02, 2021 and July 07, 2018 FINDINGS: Breast Composition: There are scattered areas of fibroglandular density. There are no dominant masses or suspicious calcifications. Stable small benign-appearing bilateral axillary lymph nodes. No other significant abnormalities are identified. There has been no significant change since the prior study. BI/SCRN MAMM (CAD)W/STEPHANI BILAT IMPRESSION: Stable bilateral screening mammogram. Yearly follow-up mammogram recommended. (A) ASSESSMENT CATEGORY: BIRADS Category 2: Benign. A letter regarding these results will be sent to the patient by the facility within 30 days. Approximately 10% of breast cancers are not detected by mammography. A normal mammogram should not delay biopsy of a clinically suspicious abnormality. [id number] Electronically Signed: Leo Guardado MD at 8:55 EDT ,
--- NOTE | 2023-03-04 14:15 | BD_ITS ---
STUDY: DUAL ENERGY X-RAY ABSORPTIOMETRY / DXA REASON FOR EXAM: Female, 62 years old. V76.12ScreeningBONE DENSITY REASON FOR EXAM TECHNIQUE: Bone Mineral Density (BMD) measurements of lumbar spine and bilateral hips were obtained. COMPARISON: Comparison is made with prior study dated August 10, 2019. FINDINGS: Lumbar Spine (L1-L4): g/cm2 (0.879) / T-score (-1.5) / Z-score (0.0) Findings are suggestive of osteopenia with a low fracture risk. Left Femur Total: g/cm2 (0.812) / T-score (-1.1) / Z-score (0.0) Left Femoral Neck: g/cm2 (0.716) / T-score (-1.2) / Z-score (0.2) Right Femur Total: g/cm2 (0.789) / T-score (-1.3) / Z-score (-0.2) Right Femoral Neck: g/cm2 (0.685) / T-score (-1.5) / Z-score (-0.1) The T-Scores on the most recent prior examination were: Lumbar Spine (L1-L4): There has been worsening of bone density since the previous examination. Left Femur Total: which represents a worsening of 22%. Right Femur Total: which represents a worsening of 22.9%. BD/Dexa Bone Density Study IMPRESSION: The patient is considered osteopenic as outlined below according to World [place] Organization (WHO) criteria with a low fracture risk. There has been worsening of bone density since the previous examination. Reference Information: The T-score is the number of standard deviations above or below the standard which is normal for young adults at their peak bone mineral density. The World Health Organization (WHO) interprets the T-scores as follows: Above -1 Normal bone density Between -1 and -2.5 Osteopenia Equal to / or below -2.5 Osteoporosis As a practical clinical guideline, osteopenia may be graded as follows: Mild -1 through -1.5 Moderate -1.6 through -2.0 Severe -2.1 through -2.4 The Z-score is the number of standard deviations above or below age-matched controls. A Z-score of less than -1.5 would be considered abnormal. References: 1. NIH Osteoporosis and Related Bone Diseases www osteo.org 2. International Society for Clinical Densitometry www iscd.org 3. National Osteoporosis Foundation www nof.org Electronically Signed: Leo Guardado MD at 12:29 EDT ,
== END | disposition home or self-care (01) ==
LOC: OPBD 14:12
PROVIDERS: PCP Nurse Practitioner Family; Referring Provider Nurse Practitioner Family; Visit Provider Nurse Practitioner Family
DX: Z12.31 Encounter for screening mammogram for malignant neoplasm of breast (principal); Z78.0 Asymptomatic menopausal state
CPT/HCPCS: 77063; 77067; 77080

== ENCOUNTER → 2023-03-26 | Outpatient (CLI) | payer OTHER, SELFPAY ==
[2022-09-18 08:38] VITALS: BMI 29.1
--- NOTE | 2023-03-26 14:16 | CT_ITS ---
STUDY: CT ABDOMEN AND PELVIS WITH AND WITHOUT CONTRAST REASON FOR EXAM: Female, 62 years old. Asymptomatic microscopic hematuria RADIATION DOSAGE (If Supplied By Facility): CTDIvol = ( 24.19 ) mGy, DLP = ( 4289.88 ) mGycm TECHNIQUE: Transaxial images were obtained from the dome of the diaphragm to the symphysis pubis without oral contrast. IV 100mL Isovue-300 was administered. Sagittal and coronal images were reconstructed. Individualized dose optimization techniques were used for this CT. COMPARISON: None. FINDINGS: The visualized lung bases are unremarkable. Coronary artery calcification. Status post aortic valve replacement. 2 cysts are seen in the left lobe of the liver. The larger cyst measures 2 cm x 1.8 cm. Normal gallbladder and extrahepatic biliary system. Normal spleen. Normal pancreas. Normal bilateral adrenal glands. Normal right kidney. Normal left kidney. Normal visualized stomach. Normal small intestine. Normal colon. The appendix is visualized and appears normal. Normal abdominal aorta. Normal inferior vena cava. There is borderline retroperitoneal lymphadenopathy with enlarged nodes no greater than 10mm in the short axis diameter. Normal urinary bladder. Enlarged fibroid uterus. There is a small umbilical hernia containing fat. There are mild degenerative changes of the visualized lumbar spine. CT/CT Abd/Pelvis W/WO Contrast IMPRESSION: Small cysts are seen in the left lobe of the liver. Enlarged fibroid uterus. Electronically Signed: Leo Guardado MD at 15:14 EDT ,
== END | disposition home or self-care (01) ==
LOC: CT 14:14
PROVIDERS: PCP Nurse Practitioner Family; Referring Provider Urology; Visit Provider Urology
DX: R31.21 Asymptomatic microscopic hematuria (principal)
CPT/HCPCS: 74178; Q9967

== ENCOUNTER → 2023-06-24 | Outpatient (CLI) | payer OTHER, SELFPAY ==
[2022-09-18 08:38] VITALS: BMI 29.1
[2023-06-24 08:28] LABS: AST(SGOT) 22 U/L (15-37); Alanine Aminotransfer ALT/SGPT 29 U/L (13-56); Albumin, Serum 3.5 g/dL (3.2-5.0); Alkaline Phosphatase 87 U/L (45-117); Anion Gap 6 (5-15); BUN 18 mg/dL (7-18); BUN/Creat Ratio 30.6 RATIO (10-20); Calcium,Total 9.2 mg/dL (8.5-10.1); Chloride 111 mmol/L (98-107); Creatinine, Serum 0.59 mg/dL (0.55-1.02); EST Glomerular Filtration Rate 110 mL/min (>60); Est Glom Filt Rate - Afr Amer 133 mL/min (>60); Globulin 3.4 g/dL (2.2-4.2); Glucose 95 mg/dL (74-106); Protein, Total 6.9 g/dL (6.4-8.2); Sodium Level 140 mmol/L (136-145); Thyroid Stim Hormone (TSH) 1.78 uIU/mL (0.358-3.74)
== END | disposition home or self-care (01) ==
LOC: LAB 06:08
PROVIDERS: PCP Nurse Practitioner Family; Referring Provider Internal Medicine Cardiovascular Disease; Visit Provider Internal Medicine Cardiovascular Disease
DX: R42 Dizziness and giddiness (principal); R53.83 Other fatigue; E78.5 Hyperlipidemia, unspecified; R00.2 Palpitations; D64.9 Anemia, unspecified; I25.10 Atherosclerotic heart disease of native coronary artery without angina pectoris
CPT/HCPCS: 36415; 80053; 84443

== ENCOUNTER → 2024-03-16 | Outpatient (CLI) | payer OTHER, SELFPAY ==
[2022-09-18 08:38] VITALS: BMI 29.1
--- NOTE | 2024-03-16 13:25 | US_ITS ---
STUDY: ULTRASOUND OF THE FEMALE PELVIS - COMPLETE REASON FOR EXAM: Female, 63 years old. Transvag/abdom. dyspareunia, fibroids on CT -- Transvag/abdom. dyspareunia, fibroids on CT LMP: TECHNIQUE: Transabdominal and transvaginal TECHNICAL QUALITY: Adequate. COMPARISON: CT March 26, 2023. FINDINGS: The uterus is anteverted and is in a midline position. The uterus measures 8.6 x 7.4 x 5.9 cm. Normal uterine cervix. The endometrial thickness is not clearly visualized There is no demonstrated endometrial mass. There is a fibroid measuring 7.6 x 7.4 x 6.7 cm. I.U.D. - The patient does not have an I.U.D. there is a small complex structure in the lower uterine segment measuring approximately 1.14 x 0.53 cm. This could represent an atypical nabothian cyst or less likely cervical fibroid due to lack of vascularity. MRI may be useful for more definitive evaluation if clinically warranted Neither of the ovaries is visualized. There is no adnexal mass.. There is no fluid in the cul-de-sac. US/Pelvic (Non ) IMPRESSION: Large intrauterine fibroid measuring approximately 7.6 x 7.4 x 6.7 cm Incidental finding of small nodule within the cervix possibly representing cervical fibroid Clinical correlation recommended. MRI may be useful for more definitive evaluation. Electronically Signed: Gómez Solorzano MD at 19:52 EDT ,
== END | disposition home or self-care (01) ==
LOC: US 13:25
PROVIDERS: PCP Nurse Practitioner Family; Referring Provider Nurse Practitioner Family; Visit Provider Nurse Practitioner Family
DX: D25.9 Leiomyoma of uterus, unspecified (principal)
CPT/HCPCS: 76856

== ENCOUNTER → 2024-04-13 | Outpatient (CLI) | payer OTHER, SELFPAY ==
[2024-04-13 15:45] VITALS: BMI 29.1
[2024-04-21 12:10] LABS: HPV APTIMA, High Risk Negative (Negative)
== END | disposition home or self-care (01) ==
PROVIDERS: PCP Nurse Practitioner Family; Referring Provider Nurse Practitioner Family; Visit Provider Nurse Practitioner Family
DX: Z12.4 Encounter for screening for malignant neoplasm of cervix (principal)
CPT/HCPCS: 87624; 88175; G0145

== ENCOUNTER → 2024-10-12 | Outpatient (CLI) | payer OTHER, SELFPAY ==
[2024-04-13 15:45] VITALS: BMI 29.1
--- NOTE | 2024-10-12 14:20 | US_ITS ---
PROCEDURE: PELVIC W/ TRANSVAGINAL 10/12/2024 REASON FOR EXAM: RE-EVAL UTERINE FIBROID. TECHNIQUE: Ultrasound of the pelvis was performed with grayscale and color Doppler imaging.. COMPARISON: None. FINDINGS: Uterus: 10.5 cm mL by 7.4 cm AP x 7.2 cm T. uterus is anteverted. In the myometrium there is a 6.6 cm fibroid. Endometrium is not visible. Ovaries are not visible. US/Pelvic w/ Transvaginal IMPRESSION: Uterus is large. At least 1 large fibroid identified. Others are possible Important structures including both ovaries and endometrium are not visualized. Reading [facility]
== END | disposition home or self-care (01) ==
LOC: US 14:20
PROVIDERS: PCP Nurse Practitioner Family; Referring Provider Nurse Practitioner Family; Visit Provider Nurse Practitioner Family
DX: D25.9 Leiomyoma of uterus, unspecified (principal)
CPT/HCPCS: 76830; 76856

== ENCOUNTER → 2024-12-27 | Outpatient (CLI) | payer OTHER, SELFPAY ==
[2024-04-13 15:45] VITALS: BMI 29.1
--- NOTE | 2024-12-27 | EMB_PTH ---
PATIENT: [facility]SON [id number] AGE/SX: 64/F ROOM: RE12/27/[address]: CORDELIA Bingham : 1960 BED: DIS: 12/27/2024 SPEC #: [id number] RECD: 12/27/24 12:09 STATUS: ELTY REPipo #: [id number] ALBERTO: 12/27/24 00:[address]: Nancy Pérez NP DEPT: SURGICAL PATHOLOGY RECD BY: Ervin Gutierrez ENTERED: 12/27/24 13:28 SP TYPE: ENDOM BX/C ALEXANDRA DR: CORDELIA Paul Tissues: A - Endometrium, NOS Procedures: Surgery Specimen Level IV HEADER OPERATION: Endometrial biopsy PRE-OP DIAGNOSIS: Postmenopausal bleeding TISSUE SUBMITTED: A- Endometrial lining MICROSCOPIC DIAGNOSIS A. Endometrium, biopsy: * Small piece of benign squamous epithelial cells, basophilic mucinous secretory material and fibrinous material * No endometrium is identified MICROSCOPIC DESCRIPTION Slides are reviewed. GROSS DESCRIPTION A. Received in formalin labeled with the patient's name and date of is a 2.2 x 1.7 x 0.1 cm aggregate of mucoid material and flecks of possible soft tissue. The specimen is spun down into a cell block and entirely submitted in 1 cassette. [facility] [place] 12/27/2024 CPT:74295
== END | disposition home or self-care (01) ==
LOC: LABSPEC 11:36
PROVIDERS: PCP Nurse Practitioner Family; Referring Provider Nurse Practitioner Women's Health; Visit Provider Nurse Practitioner Women's Health
DX: N95.0 Postmenopausal bleeding (principal)
CPT/HCPCS: 88305

== ENCOUNTER → 2025-01-06 | Outpatient (CLI) | payer OTHER, SELFPAY ==
[2024-04-13 15:45] VITALS: BMI 29.1
--- OUTSIDE RECORDS SUMMARY | 2025-01-06 07:10 | XMS RPT_ITS | CCD ---
Author Organization [facility] Care Team Providers Care Quiller Machine Fixer Name Role Phone Ramona Graham Unavailable Shubham Vaughn Unavailable [facility] Unavailable Ranjit Mackey Unavailable Kunal Hansen Unavailable Terri Negron Unavailable Unavailable Ervin Maxwell Unavailable Unavailable William, Domenica Unavailable Unavailable Unavailable Unavailable Ramona Graham Unavailable Shubham Vaughn Unavailable [facility] Unavailable Ranjit Mackey Unavailable Kunal Hansen Unavailable Terri Negron Unavailable Unavailable William, Domenica Unavailable Unavailable Ervin Maxwell Unavailable Unavailable Unavailable Unavailable Ranjit Mackey Unavailable Stan, Elisabeth L Unavailable Unavailable Mojgan Hill Unavailable Unavailable Bello Escamilla Unavailable Ervin Maxwell Unavailable Unavailable Esha Thakur Unavailable Unavailable Ervin Dumont Unavailable Unavailable Laura Cr Unavailable Bello Escamilla Unavailable Ramona Graham CNP Unavailable Shubham Vaughn MD Unavailable [facility] Unavailable Ranjit Mackey MD Unavailable Bello Escamilla Unavailable Laura Cr Unavailable Dr. Kunal Hansen Unavailable Tim FLAT HAMMERER, Ervin Unavailable Unavailable Blaze FLAT HAMMERER, Esha Unavailable Unavailable Terri Negron Unavailable Unavailable William FLAT HAMMERER, Domenica Unavailable Unavailable Unavailable Unavailable Ronald Mclain DO Unavailable Noah FLAT HAMMERER, Susana Unavailable Unavailable Ciesa, Ramona Unavailable Kolby DO, Jaimee A Unavailable Manimani SHOP TECH, Amber Unavailable Unavailable Ciesa, Ramona Unavailable Subhash BRICEÑO, Devonte Alvarado Unavailable [phone] [place] [address] Physician, No Primary Primary Care Provider Unavailable Dr. Devonte Cullen Attending Provider Asa Alba CNP Unavailable Ciesa, Ramona Unavailable Asa Alba CNP Unavailable Gravius SHOP TECH, Isela Unavailable Unavailable Liz Lynch Primary Care Provider CORDELIA Alba Primary Care Provider Hansa Suarez Attending Provider Unavailable Dr. Jaimee Jarrett Referring Provider Dr. Devonte Cullen Attending Provider Dr. Devonte Cullen Referring Provider Dr. Devonte Cullen Other Provider CORDELIA Alba Referring Provider CORDELIA Hastings NP Attending Provider Asa Alba Primary Care Provider Ranjit Roque MD Unavailable CORDELIA Alba Primary Care Provider Asa Alba CNP Attending Unavailable Asa Alba CNP Referring Unavailable Asa Alba CNP Consulting Unavailable CORDELIA Alba Primary Care Provider Dr. Devonte Cullen Attending Provider Dr. Devonte Cullen Referring Provider Frederic PARTS SALES ADVISOR, PARTS SALES ADVISOR-C Vianey Attending Provider LARA Alba-C Asa Primary Care Provider [phone] Dr. Devonte Cullen Attending Provider [phone] LARA Alba-C Asa Primary Care Provider [phone] Parth PARTS SALES ADVISOR-C Asa Referring Provider Darling PARTS SALES ADVISOR, PARTS SALES ADVISOR-C Nathan Bassett Attending Provider Frederic PARTS SALES ADVISOR, PARTS SALES ADVISOR-C Vianey Attending Provider Dr. Devonte Cullen Attending Provider [phone] Dr. Devonte Cullen Referring Provider [phone] LARA Alba-C Asa Primary Care Provider [phone] LARA Alba-C Asa Referring Provider [phone] Darling PARTS SALES ADVISOR, PARTS SALES ADVISOR-C Nathan Bassett Attending Provider JACOB FAROOQ Referring Unavailable PARTH, ASA Primary Care Unavailable JACOB FAROOQ Referring Unavailable PARTH, ASA Primary Care Unavailable JACOB FAROOQ Referring Unavailable RANJIT ROQUE Attending Unavailable PARTH, ASA Primary Care Unavailable JACOB FAROOQ Referring Unavailable PARTH, ASA Primary Care Unavailable JACOB FAROOQ Referring Unavailable PARTH, ASA Primary Care Unavailable JACOB FAROOQ Attending Unavailable JACOB FAROOQ Referring Unavailable PARTH, ASA Primary Care Unavailable JACOB FAROOQ Referring Unavailable PARTH, ASA Primary Care Unavailable LIZ LYNCH Primary Care Unavailabl e JACOB FAROOQ Referring Unavailable PARTH, ASA Primary Care Unavailable JACOB FAROOQ Referring Unavailable PARTH, ASA Primary Care Unavailable JACOB FAROOQ Referring Unavailable TRACE RO Attending Unavailable PARTH, ASA Primary Care Unavailable PARTH, ASA Primary Care Unavailable JACOB FAROOQ Referring Unavailable PARTH, ASA Primary Care Unavailable JACOB FAROOQ Referring Unavailable PARTH, ASA Primary Care Unavailable JACOB FAROOQ Referring Unavailable JACOB FAROOQ Referring Unavailable PARTH, ASA Primary Care Unavailable JACOB FAROOQ Admitting Unavailable JACOB FAROOQ Attending Unavailable LIZ LYNCH Primary Care Unavailabl e JACOB FAROOQ Referring Unavailable PARTH, ASA Primary Care Unavailable Martín CURTIS MD, Barbara Kilgore Unavailable [phone] Nancy Pérez Unavailable Parth PARTS SALES ADVISOR-C, Asa Primary Care Provider Eladio PARTS SALES ADVISOR-C, Judy Attending Provider Eladio PARTS SALES ADVISOR-C, Judy Referring Provider Parth PARTS SALES ADVISOR-C, Asa Referring Provider Denys BRICEÑO, Dr. Cardenas Attending Provider Elisa PARTS SALES ADVISOR-C, Nancy Attending Provider Parth, Asa Primary Care Unavailable Assessment, Health Risk Referring Unavaila ble Assessment, Health Risk Attending Unavaila ble Elisa PARTS SALES ADVISOR, Nancy Attending Unavailable Laurens PARTS SALES ADVISOR, Nancy Referring Unavailable Parth, Asa Primary Care Unavailable Elisa PARTS SALES ADVISOR, Nancy Attending Unavailable Parth, Asa Referring Unavailable Parth, Asa Primary Care Unavailable Parth, Asa Referring Unavailable Ronald Mcfarlane Attending Unavailable Parth, Asa Primary Care Unavailable Parth, Asa Referring Unavailable Parth, Asa Primary Care Unavailable Judy Hendricks Attending Unavailable Parth, Asa Referring Unavailable Parth, Asa Primary Care Unavailable Judy Hendricks Attending Unavailable Parth, Asa Attending Unavailable Parth, Asa Referring Unavailable Parth, Asa Primary Care Unavailable Parth, Asa Primary Care Unavailable Judy Hendricks Attending Unavailable Judy Hendricks Referring Unavailable Parth, Asa Primary Care Unavailable Judy Hendricks Attending Unavailable Judy Hendricks Referring Unavailable Laurens PARTS SALES ADVISOR-C, Nancy Referring Provider Medications Current Medications Medication Drug Class(es) Dates Sig (Normalized) Sig (Original) amoxicillin 500 mg oral capsule (3 sources) Penicillin-class Antibacterial Start: 12-21-2024 take 4 capsules by mouth once Amoxicillin 500 mg capsule Active 2000 mg PO ONCE December 21, 2024 12:00am aspirin 81 mg chewable tablet (20 sources) Platelet Aggregation Inhibitor, Nonsteroidal Anti-inflammatory Drug Start: 04-16-2022 take 1 tablet by mouth once daily Aspirin 81 mg tablet,chewable Active 81 mg PO DAILY April 16, 2022 12:00am Comment on above: Take 81 mg by mouth once daily. Take 1 tablet by thomas th once daily. calcium carbonate 1500 mg oral tablet (8 sources) Start: 11-17-2023 take 1 tablet by mouth once daily Calcium Carbonate (Calcium 600) 600 mg calcium (1,500 mg) tablet Active 600 mg PO DAILY November 17, 2023 1:55pm Start: 06-17-2023 End: 11-17-2023 take 1 tablet by mouth twice daily Calcium Carbonate (Calcium 600) 600 mg calcium (1,500 mg) tablet Discontinued 600 mg PO TWICE A DAY June 17, 2023 1:00am November 17, 2023 1:55pm cholecalciferol 0.05 mg oral capsule (20 sources) Vitamin D Start: 11-17-2023 take 1 capsule by mouth every week Cholecalciferol (Vitamin D3) 50 mcg (2,000 unit) capsule Active 50 ug PO EVERY WEEK November 17, 2023 12:00am Start: 11-12-2022 take 1 tablet by thomas every week cholecalciferol (vitamin D3) 1,250 mcg (50,000 unit) oral tablet 1 (one) tablet weekly for 0 days Quantity: 12 {Tablet} Refills: 2 Ordered: 12-Nov-2022 Asa Alba CNP Start : 12-Nov-2022 Active Start: 04-14-2022 End: 08-20-2022 take 1 tablet by mouth every week Cholecalciferol (Vitamin D3) 125 mcg (5,000 unit) tablet Discontinued 125 ug PO EVERY WEEK April 14, 2022 12:00am August 20, 2022 2:56pm Start: 02-20-2022 take 1 capsule by mo [facility] every week Vitamin D3 Maximum Strength 125 MCG (5000 UT) Oral Capsule 1 (one) Capsule weekly for 0 days Quantity: 12 {Capsule} Refills: 3 Ordered: 20-Feb-2022 Asa Alba CNP Start : 20-Feb-2022 Active Start: 05-28-2020 take 1 capsule by mo [facility] every week Vitamin D3 Maximum Strength 125 MCG (5000 UT) Oral Capsule 1 (one) Capsule weekly for 0 days Quantity: 12 {Capsule} Refills: 3 Ordered: 28-May-2020 Ervin Dumont LPN Start : 28-May-2020 Active Start: 07-31-2019 End: 04-14-2022 take 1 capsule by mouth every week Cholecalciferol (Vitamin D3) 1,250 mcg (50,000 unit) capsule Discontinued 06676 U PO EVERY WEEK July 31, 2019 1:00am April 14, 2022 11:32am Start: 06-05-2019 End: 03-05-2020 take 2 tablets by mouth once daily Vitamin D3 250 MCG (09949 UT) Oral Tablet 2 (two) Tablet daily for 0 days Quantity: 30 {Tablet} Refills: 3 Ordered: 05-Mar-2020 Ervin Dumont LPN Start : 05-Jun-2019 End : 05-Mar-2020 Inactive Start: 02-24-2019 take 1 tablet by thomas th once daily Vitamin D3 16358 UNIT Oral Tablet 1 (one) Tablet daily for 0 days Quantity: 30 {Tablet} Refills: 3 Ordered: 24-Feb-2019 Ramona Graham CNP, CNP, Mary E Start : 24-Feb-2019 Active Start: 02-17-2019 take 1 tablet by thomas th once daily Vitamin D3 11221 UNIT Oral Tablet 1 (one) Tablet daily for 0 days Quantity: 30 {Tablet} Refills: 0 Ordered: 17-Feb-2019 Ramona Graham CNP, CNP Sherin Start : 17-Feb-2019 Active Start: 10-31-2018 take 1 capsule by mo [facility] once daily Vitamin D3 Maximum Strength 5000 UNIT Oral Capsule 1 (one) Capsule daily for 0 days Quantity: 30 {Capsule} Refills: 0 Ordered: 24-Feb-2019 Mojgan Hill Start : 31-Oct-2018 Active Start: 05-06-2018 End: 10-31-2018 take 3 tablets by mouth once daily Vitamin D 2000 UNIT Oral Tablet 3 (three) Tablet daily x 8 weeks for 0 days Quantity: 30 {Tablet} Refills: 0 Ordered: 31-Oct-2018 Ramona Graham Start : 06-May-2018 End : 31-Oct-2018 Inactive Start: 02-03-2018 take 1 tablet by thomas th once daily Vitamin D 2000 UNIT Oral Tablet 1 (one) Tablet Tablet daily as directed for 0 days Quantity: 30 {Tablet} Refills: 0 Ordered: 15-Apr-2018 Terri Negron Start : 03-Feb-2018 Active Start: 12-15-2013 End: 03-03-2016 take 2 capsules by mouth once daily Vitamin D3 63700 UNIT Oral Capsule 2 (two) Capsule Capsule qd for 0 days Quantity: 60 {Capsule} Refills: 3 Ordered: 03-Mar-2016 William SANDomenica Start : 15-Dec-2013 End : 03-Mar-2016 Discontinued ferrous sulfate 325 mg oral tablet (18 sources) Start: 10-23-2022 End: 06-17-2023 Ferrous Sulfate 325 mg (65 mg iron) tablet Active 325 mg PO .[facility] June 17, 2023 3:30pm losartan potassium 50 mg oral tablet (20 sources) Angiotensin 2 Receptor Hemant Start: 06-17-2023 End: 06-26-2024 take 1 tablet by mouth once daily Losartan 50 mg tablet Active 50 mg PO DAILY June 26, 2024 9:22am Start: 10-13-2019 End: 05-27-2021 take 1 tablet by mouth once daily Losartan Potassium 25 MG Oral Tablet 1 Tablet daily for 0 days Quantity: 90 {Tablet} Refills: 3 Ordered: 27-May-2021 Noah SAN Susana Start : 05-Mar-2020 End : 27-May-2021 Inactive Start: 12-02-2018 take 1 tablet by thomas th once daily Losartan Potassium 25 MG Oral Tablet 1 Tablet daily for 0 days Quantity: 90 {Tablet} Refills: 1 Ordered: 02-Dec-2018 Ramona Graham CNP, CNP, Mary E Start : 02-Dec-2018 Active Start: 01-21-2018 take 1 tablet by thomas th once daily Losartan Potassium 25 MG Oral Tablet 1 Tablet daily for 0 days Quantity: 90 {Tablet} Refills: 1 Ordered: 21-Jan-2018 Ramona Graham CNP, CNP, Mary E Start : 21-Jan-2018 Active mecobalamin (11 sources) Start: 06-17-2023 Mecobalamin (V itamin B12) 500 mcg tablet,chewable Active 500 ug PO .[facility] June 17, 2023 3:29pm Start: 10-23-2022 End: 06-17-2023 Mecobalamin (Vitamin B12) 50 0 mcg tablet,chewable Discontinued ug PO October 23, 2022 12:00am June 17, 2023 3:31pm Start: 10-23-2022 Mecobalamin (V itamin B12) Active MCG PO October 23, 2022 12:00am perflutren lipid microspheres 1.3 mL in NaCl (PF) 0.9% 10 mL injection (DEFINITY) (11 sources) Start: 06-25-2022 End: 09-24-2023 perflutren lipid microspheres 1.3 mL in NaCl (PF) 0.9% 10 mL injection (DEFINITY) pravastatin sodium 20 mg oral tablet (8 sources) HMG-CoA Reductase Inhibitor Start: 06-17-2023 End: 09-04-2024 take 1 tablet by mouth at bedtime Pravastatin 20 mg tablet Active 20 mg PO AT BEDTIME September 04, 2024 3:13pm 125 ml sodium chloride 9 mg/ml prefilled syringe (11 sources) Start: 06-25-2022 End: 09-24-2023 sodium chloride 0.9 % (flush) 10 mL (BD POSIFLUSH) Turmeric extract (3 sources) Start: 12-21-2024 take 1 mg by mouth once daily Turmeric 400 mg capsule Active mg PO DAILY December 21, 2024 12:00am Completed/Discontinued Medications Medication Drug Class(es) Dates Sig (Normalized) Sig (Original) acetaminophen 500 mg oral tablet (20 sources) Start: 07-02-2022 End: 07-21-2022 take 1000 mg by mouth every six hours Acetaminophen Active 1000 MG PO EVERY 6 HOURS July 21, 2022 10:38am Start: 06-30-2022 End: 06-17-2023 take 2 tablets by mouth every six hours as needed for pain Acetaminophen 500 mg tablet Discontinued 1000 mg PO EVERY 6 HOURS as needed for pain July 21, 2022 10:38am June 17, 2023 3:31pm Comment on above: Take 2 tablets by mo [facility] every 6 hours as needed (for surgical pain). amLODIPine 5 mg oral tablet (20 sources) Dihydropyridine Calcium Channel Hemant Start: 07-25-19 End: 07-02-20 take 1 tablet by mouth once daily Amlodipine 5 mg Tablet Discontinued 5 mg PO DAILY July 25, 2021 1:00am July 02, 2022 10:59am Start: 10-26-2021 [facility] Norvasc 5 MG Oral Tablet 1 (one) Tablet daily as directed for 0 days Quantity: 30 {Tablet} Refills: 3 Ordered: 13-May-2021 Susana Zamora LPN Start : 13-May-2021 Active Comment on above: Take 5 mg by mouth o nce daily. calcium carbonate 1500 mg / cholecalciferol 800 unt oral tablet (20 sources) Vitamin D Start: 2012 End: 2015 take 600-800 tablets by mouth twice daily Caltrate 600+D 600-800 MG-UNIT Oral Tablet 1 Tablet bid for 0 days Quantity: 60 {Tablet} Refills: 0 Ordered: 03-Mar-2016 Domenica Thomas LPN Start : 29-Mar-2013 End : 03-Mar-2016 Discontinued Caltrate 600+D 600-800 MG-UNIT Oral Tablet (9 sources) Start: 2012 End: 2015 take 600-800 tablets by mouth twice daily Caltrate 600+D 600-800 MG-UNIT Oral Tablet 1 Tablet bid for 0 days Quantity: 60 {Tablet} Refills: 0 Ordered: 03-Mar-2016 Domenica Thomas LPN Start : 29-Mar-2013 End : 03-Mar-2016 Discontinued cyclobenzaprine hydrochloride 5 mg oral tablet (20 sources) Muscle Relaxant Start: 2016 End: 2017 take 1 tablet by mouth three times daily Cyclobenzaprine HCl 5 MG Oral Tablet 1 (one) Tablet Tablet PO TID for 0 days Quantity: 60 {Tablet} Refills: 0 Ordered: 21-Jan-2018 Ervin Dumont LPN Start : 08-Dec-2016 End : 21-Jan-2018 Inactive docusate sodium 100 mg oral capsule (20 sources) Start: 2021 End: 2022 take 1 capsule by mouth twice daily Docusate Sodium (Colace) 100 mg capsule Discontinued 100 mg PO TWICE A DAY July 02, 2022 1:00am August 04, 2022 10:22am Comment on above: Take 1 capsule by mo [facility] twice daily. furosemide 40 mg oral tablet (20 sources) Loop Diuretic Start: 2021 End: 2022 take 1 tablet by mouth once daily Furosemide 40 mg tablet Discontinued 40 mg PO .COMPLEX August 06, 2022 1:00am August 20, 2022 2:56pm 40 mg orally daily X 3 days; Comment on above: Take 1 tablet by thomas th once daily for 7 days. hydroCHLOROthiazide 12.5 mg oral tablet (20 sources) Thiazide Diuretic Start: 2021 End: 2021 Hydrochlorothiazide 25 mg tablet Discontinued 12.5 mg PO DAILY April 16, 2022 11:11am May 29, 2022 11:06am Start: 04-16-2022 End: 05-29-2022 take 12.5 mg by mouth once daily Hydrochlorothiazide Discontinued 12.5 MG PO DAILY April 16, 2022 11:11am May 29, 2022 11:06am Start: 04-14-2022 End: 04-16-2022 take 1 tablet by mouth once daily Hydrochlorothiazide 25 mg tablet Discontinued 25 mg PO DAILY April 14, 2022 12:00am April 16, 2022 11:11am Start: 04-07-2022 End: 08-28-2022 take 1 tablet by mouth once daily Hydrochlorothiazide 12.5 mg tablet Discontinued 12.5 mg PO DAILY May 29, 2022 1:00am July 02, 2022 10:58am Start: 01-23-2022 take 1 tablet by thomas once daily hydroCHLOROthiazide 12.5 MG Oral Tablet 1 (one) Tablet qd for 0 days Quantity: 30 {Tablet} Refills: 3 Ordered: 23-Jan-2022 Asa Alba CNP Start : 23-Jan-2022 Active Start: 12-16-2021 take 1 tablet by thomas once daily hydroCHLOROthiazide 25 MG Oral Tablet 1 (one) Tablet qd for 0 days Quantity: 30 {Tablet} Refills: 3 Ordered: 16-Dec-2021 Jaimee Jarrett DO Start : 16-Dec-2021 Active Start: 12-10-2020 End: 05-27-2021 hydroCHLOROthiazide 12.5 MG Oral Capsule 1 Capsule q0d for 90 days Quantity: 45 {Capsule} Refills: 4 Ordered: 27-May-2021 Susana Zamora LPN Start : 10-Dec-2020 End : 27-May-2021 Inactive Start: 08-23-2019 hydroCHLOROthi azide 12.5 MG Oral Capsule 1 Capsule q0d for 90 days Quantity: 45 {Capsule} Refills: 3 Ordered: 05-Mar-2020 Tim SANErvin Start : 05-Mar-2020 Active Start: 12-02-2018 hydroCHLOROthi azide 12.5 MG Oral Capsule 1 Capsule q0d for 90 days Quantity: 45 {Capsule} Refills: 1 Ordered: 02-Dec-2018 Crisrachaelfoster SCHREIBER Sherin Cirahcaelfoster SCHREIBER Ramona Courtney Start : 02-Dec-2018 Active Start: 09-06-2018 HydroCHLOROthi azide 12.5 MG Oral Capsule 1 Capsule q0d for 0 days Quantity: 45 {Capsule} Refills: 0 Ordered: 06-Sep-2018 Rachana CANDIE Sherin Rachana CANDIE Ramona Courtney Start : 06-Sep-2018 Active Start: 05-24-2018 HydroCHLOROthi azide 12.5 MG Oral Capsule 1 Capsule q0d for 0 days Quantity: 45 {Capsule} Refills: 0 Ordered: 24-May-2018 Crisrachaelfoster SCHREIBER Sherin Crisrachaelfoster SCHREIBER Ramona Courtney Start : 24-May-2018 Active Start: 01-21-2018 HydroCHLOROthi azide 12.5 MG Oral Capsule 1 Capsule q0d for 0 days Quantity: 45 {Capsule} Refills: 0 Ordered: 21-Jan-2018 Rachana CANDIE Ramona Graham CANDIE Ramona Courtney Start : 21-Jan-2018 Active Comment on above: Take 12.5 mg by mout h once daily. hydroCHLOROthiazide 12.5 mg / losartan potassium 50 mg oral tablet (20 sources) Thiazide Diuretic, Angiotensin 2 Receptor Hemant Start: 012 End: take 1 tablet by mouth once daily LOSARTAN POTASSIUM-HCTZ, 50-12.5MG (Oral Tablet) 1 (one) Tablet daily for 30 days Quantity: 30 {Tablet} Refills: 1 Ordered: 30-Sep-2012 Stevenson SANMayuri Start : 23-Jun-2012 End : 30-Sep-2012 Inactive lisinopril 10 mg oral tablet (20 sources) Angiotensin Converting Enzyme Inhibitor Start: 022 End: take 1 tablet by mouth once daily Lisinopril 10 mg Tablet Discontinued 10 mg PO DAILY July 25, 2021 1:00am April 14, 2022 11:32am Start: 05-27-2021 take 1 tablet by thomas th once daily Lisinopril 10 MG Oral Tablet 1 (one) Tablet daily for 0 days Quantity: 30 {Tablet} Refills: 3 Ordered: 27-May-2021 Tim SANErvin Start : 27-May-2021 Active magnesium oxide 400 mg oral tablet (20 sources) Start: 07-02-2022 End: 08-04-2022 take 2 tablets by mouth once daily Magnesium Oxide 400 mg magnesium tablet Discontinued 800 mg PO DAILY July 02, 2022 1:00am August 04, 2022 10:22am Start: 06-30-2022 End: 08-04-2022 take 800 mg by mouth once daily Magnesium Oxide Discontinued 800 MG PO DAILY July 02, 2022 1:00am August 04, 2022 10:22am Comment on above: Take 2 tablets by mo [facility] once daily for 7 days. 24 hr metoprolol succinate 25 mg extended release oral tablet (20 sources) beta-Adrenergic Hemant Start: 08-20-2022 End: 06-17-2023 take 1 tablet by mouth twice daily Metoprolol Succinate 25 mg tablet extended release 24 hr Discontinued 25 mg PO TWICE A DAY December 25, 2022 11:35am June 17, 2023 4:00pm Start: 08-04-2022 End: 08-20-2022 take 2 tablets by mouth twice daily Metoprolol Succinate 25 mg tablet extended release 24 hr Discontinued 12.5 mg PO TWICE A DAY August 04, 2022 10:22am August 20, 2022 2:56pm Start: 08-04-2022 End: 08-20-2022 take 12.5 mg by mouth twice daily Metoprolol Succinate Discontinued 12.5 MG PO TWICE A DAY August 04, 2022 10:22am August 20, 2022 2:56pm Start: 07-02-2022 End: 08-04-2022 take 1 tablet by mouth twice daily Metoprolol Succinate 25 mg tablet extended release 24 hr Discontinued 25 mg PO TWICE A DAY July 02, 2022 1:00am August 04, 2022 10:23am Start: 06-30-2022 take 0.5 tablet by m outh twice daily metoprolol succinate ER (TOPROL XL) 50 mg 24 hr tablet Take 0.5 tablets by mouth twice daily. 90 tablet 1 06/30/2022 Active take 1 tablet by thomas th every twenty-four hours metoprolol succinate 25 mg oral Tablet, Extended Release 24 hr bid (25 mg) Active Comment on above: Take 0.5 tablets by mouth twice daily. mupirocin 0.02 mg/mg topical ointment (3 sources) RNA Synthetase Inhibitor Antibacterial Start: 2 End: 2 mupirocin (BACTROBAN) 2 % ointment Apply a small amount in each nostril using a cotton swab twice the day before surgery and once the morning of surgery. 22 g 0 06/25/2022 Active Comment on above: Apply a small amount in each nostril using a cotton swab twice the day before surgery and once the morning of surgery. naproxen 500 mg delayed release oral tablet (20 sources) Nonsteroidal Anti-inflammatory Drug Start: 7 End: 8 take 1 tablet by mouth twice daily at mealtime Naproxen DR 500 MG Oral Tablet Delayed Release 1 (one) Tablet DR Tablet DR BID for 0 days Quantity: 30 {Tablet} Refills: 0 Ordered: 21-Jan-2018 Ervin Dumont LPN Start : 08-Dec-2016 End : 21-Jan-2018 Inactive Comments: Take with food Comment on above: Take with food potassium chloride 20 meq extended release oral tablet (20 sources) Start: 3 End: 3 take 1 tablet by mouth once daily Potassium Chloride 20 mEq tablet extended release Discontinued 20 meq PO .COMPLEX August 06, 2022 1:00am August 20, 2022 2:56pm 20 mEq orally daily X 3 days; Start: 05-12-2022 End: 08-04-2022 take 1 tablet by mouth once daily Potassium Chloride 20 mEq tablet extended release Discontinued 20 meq PO DAILY May 12, 2022 12:00am August 04, 2022 10:22am Start: 04-08-2022 End: 08-28-2022 take 1 tablet by mouth once daily Klor-Con M20 20 mEq oral Tablet, Extended Release Particles/Crystals 1 Tablet daily for 30 days Quantity: 30 {Tablet} Refills: 3 Ordered: 28-Aug-2022 Domenica Thomas LPN Start : 08-Apr-2022 End : 10-Feb-2023 Inactive Start: 01-23-2022 take 1 tablet by thomas th once daily Klor-Con M20 20 MEQ Oral Tablet Extended Release 1 Tablet daily for 30 days Quantity: 30 {Tablet} Refills: 0 Ordered: 23-Jan-2022 Isela De La Cruz CMA Start : 23-Jan-2022 Active Start: 01-14-2022 take 1 tablet by thomas th once daily Klor-Con M20 20 MEQ Oral Tablet Extended Release 1 (one) Tablet qd for 10 days Quantity: 10 {Tablet} Refills: 0 Ordered: 14-Jan-2022 Amber Kerr CMA Start : 14-Jan-2022 Active Start: 12-22-2021 End: 01-05-2022 take 1 tablet by mouth once daily Potassium Chloride ER 20 MEQ Oral Tablet Extended Release 1 (one) Tablet qd for 14 days Quantity: 14 {Tablet} Refills: 0 Ordered: 22-Dec-2021 Amber Kerr CMA Start : 22-Dec-2021 End : 05-Jan-2022 Inactive Comment on above: Take 20 mEq by mouth once daily. Take 1 tablet by thomas th once daily for 7 days. topiramate 25 mg oral tablet (20 sources) Anti-epileptic Agent Start: 10-30-2013 End: 02-02-2014 TOPAMAX, 25MG (Oral Tablet) 1 (one) Tablet qhs for 1 week then take bid for 0 days Quantity: 60 {Tablet} Refills: 3 Ordered: 02-Feb-2014 Elvira Valencia Start : 30-Oct-2013 End : 02-Feb-2014 Discontinued triamcinolone acetonide 40 mg/ml injectable suspension (1 source) Corticosteroid Start: 07-02-2020 End: 07-02-2020 Kenalog (triamcinolone acetonide) 40 mg/mL suspension for injection Discontinued 40 MG INTRAARTIC ONCE 1 July 02, 2020 2:47pm July 02, 2020 3:21pm Problems Active Problems Problem Classification Problem Date Documented Date Episodic/Chronic Administrative/social admission (20 sources) Patient encounter status; Translations: [Encounter for pre-employment examination] Onset: 06-25-20 22 05-28-2020 Episodic Aortic; peripheral; and visceral artery aneurysms (1 source) Aneurysm of ascending aorta; Translations: [Aneurysm of ascending aorta without rupture] Chronic Benign neoplasm of uterus (9 sources) Uterine leiomyoma; Translations: [Leiomyoma of uterus, unspecified] Onset: 10-18-19 25 04-13-2024 Episodic Cardiac and circulatory congenital anomalies (20 sources) Bicuspid aortic valve; Translations: [Bicuspid aortic valve] Onset: 06-26-20 22 01-12-2022 Chronic Comment on above: seeing Dr. Cullen in March as new patient Tissue , Inspiris #2 3 @ [facility] Dr. Jacob Farooq 06/26/22 Cardiac dysrhythmias (20 sources) Tachycardia; Translations: [Tachycardia] 04-15-2018 Episodic Conditions associated with dizziness or vertigo (20 sources) Vertigo; Translations: [Vertigo] 12-31-2021 Episodic Comment on above: better since last OV , had mri negative. Coronary atherosclerosis and other heart disease (2 sources) Coronary arteriosclerosis; Translations: [Atherosclerotic heart disease of [place] coronary artery without angina pectoris] 06-17-2023 Chronic Deficiency and other anemia (20 sources) Anemia due to blood loss; Translations: [Anemia, blood loss] 08-28-2022 Chronic Comment on above: check iron studies, b12/folatesrecent open heart, likely r/t the surgery but we will follow has some chronic hem aturia, sending to uro&H now normal 02/2023, followrecent open heart, likely r/t the surgery but we will follow-09/2022 iron studies, b12/folates all WNL. Deficiency and other anemia (13 sources) Anemia; Translations: [Anemia, unspecified] 08-20-2022 Episodic Deficiency and other anemia (10 sources) Anemia, unspecified; Translations: [Anemia, unspecified] 08-20-2022 Episodic Disorders of lipid metabolism (4 sources) Dyslipidemia; Translations: [Hyperlipidemia, unspecified] 11-17-2023 Chronic Comment on above: Patient's lipids Feb total cholesterol 175, HDL 65, LDL 93, triglycerides 86. Given the fact she has no significant atherosclerotic disease this represents good control. Essential hypertension (20 sources) Hypertensive disorder; Translations: [Benign hypertension] Onset: 06-29-20 22 04-15-2018 Chronic Comment on above: chronic stable-chandu nue present regimen chronic stable-chandu nue present regimen on losartin and hctz chronic stable-chandu nue present regimen on losartin and hctz, reports higher BP in am at home chronic stable-chandu nue present regimen on losartin and hctz, norvasc finally improved salt caffeine rstric tion diet exercise - drink plenty of water really want her to w ath salt becuase she has pretty variable bps and i think getting more salt than reealizes - 2 grams or less and also bring in her monitor to compare -better since med ad justment with last ov Dr Jarrett-monitor at home and call with concernsreally want her to watch salt because she has pretty variable bps and i think getting more salt than realizes - 2 grams or less and also bring in her monitor to compare -better since med ad justment. on norvasc 5mg, now BB after valve rep. -monitor at home and call with elevationsreally want her to watch salt - 2 grams or less Patient's blood pres sures elevated in the diastolic today. Will have her switch to take her losartan in the morning and monitor her blood pressures in her home environment. Target blood pressure should be less than 135/85. Today it was 128/92. Fever of unknown origin (20 sources) Fever; Translations: [Fever, unspecified] 08-04-2022 Episodic Fluid and electrolyte disorders (20 sources) Hypokalemia; Translations: [Hypokalemia (Renamed from Decreased potassium in the blood)] 04-15-2018 Episodic Comment on above: recheck level, refil l RX Genitourinary symptoms and ill-defined conditions (20 sources) Abnormal urine; Translations: [Urinary symptoms ] Resolved : 01-22-20 18 04-15-2018 Episodic Comment on above: abnormal on employee physical here normal send to urology for their opinion.off and on since 2014, newer pt to this provider but appears no prior workup according to our records. no other urinary complaints. no clots. Headache, including migraine (20 sources) Migraine with aura; Translations: [Other forms of migraine, with intractable migraine, so stated, without mention of status migrainosus] Resolved : 01-22-20 18 04-15-2018 Chronic Comment on above: chronic stable-chandu nue present regimen has on and off Heart valve disorders (20 sources) Aortic valve stenosis; Translations: [Aortic valve stenosis] Onset: 06-18-2004-17-2022 Chronic Comment on above: mod to severe per ec ho 06/2022 [facility] aortic v alve replacement and ascending aorta aortoplasty and PFO closure by Dr. Jacob Farooq Mod-Severe per ECHO 01/09/22 Tissue , Inspiris #[address] [facility] [address] Jacob Farooq 06/26/22 patient underwent AVR for bicuspid aortic valve and had an ascending aorta repair at the same time. Heart valve disorders (20 sources) Systolic murmur; Translations: [Systolic murmur] 12-31-2021 Episodic Malaise and fatigue (4 sources) Fatigue; Translations: [Other fatigue] 06-17-2023 Episodic Menopausal disorders (20 sources) Menopausal and female climacteric states; Translations: [Perimenopausal state] Onset: 12-28-1910-28-2018 Chronic Comment on above: EMB: Menstrual disorders (20 sources) Primary amenorrhea; Translations: [Primary amenorrhea] 02-24-2019 Chronic Comment on above: likely going thru me nopause, x 8mo Nutritional deficiencies (20 sources) Vitamin D deficiency; Translations: [Vitamin D deficiency] 04-15-2018 Chronic Comment on above: will take D from her e with hyper parathyro id, following with Seth, Dr Escamilla with hyper parathyro id, following with Endo, Dr Flores pt no longer seeing dr. Escamilla would like [facility] to fill med from now on check a levelwith hy per parathyroid, following with Endo, Dr Flores pt no longer seeing dr. Escamilla would like [facility] to fill med from now on sent refillwith hype r parathyroid, following with Endo, Dr Flores pt no longer seeing dr. Escamilla would like [facility] to fill med from now on-vit D level 01/2022 55.4. continuing on med for now since Fall coming up with hyper parathyro id, following with Endo, Dr Flores pt no longer seeing dr. Escamilla would like [facility] to fill med from now on-vit D level 01/2022 55.4. Osteoarthritis (20 sources) Arthritis of acromioclavicular joint; Translations: [Primary osteoarthritis, unspecified shoulder] 04-14-2022 Chronic Other aftercare (1 source) Surgical follow-up; Translations: [Encounter for follow-up examination after completed treatment for conditions other than malignant neoplasm] Episodic Other circulatory disease (4 sources) Disorder of artery; Translations: [Disorder of arteries and arterioles, unspecified] Chronic Other circulatory disease (1 source) Disorder of arteries and arterioles, unspecified; Translations: [Disorder of artery or arteriole (HCC)] Onset: 06-24-20 Chronic Other connective tissue disease (20 sources) Muscle spasm of cervical muscle of neck; Translations: [Muscle spasms of neck] 04-15-2018 Episodic Other connective tissue disease (20 sources) Pain in right arm; Translations: [Right arm pain] 05-28-2020 Episodic Comment on above: ? over supraspinatus , difficutly moving arm and sleeping Other connective tissue disease (20 sources) Partial thickness rotator cuff tear; Translations: [Incomplete rotator cuff tear or rupture of right shoulder, not specified as traumatic] 04-14-2022 Episodic Other connective tissue disease (16 sources) Biceps tendinitis; Translations: [Bicipital tendinitis, right shoulder] 04-14-2022 Episodic Other connective tissue disease (4 sources) Bicipital tendinitis, right shoulder; Translations: [Biceps tendinitis of right upper extremity] 04-14-2022 Episodic Other endocrine disorders (20 sources) Disorder of parathyroid gland; Translations: [Parathyroid abnormality] Resolved : 02-03-20 14 01-21-2018 Chronic Other endocrine disorders (20 sources) Secondary hyperparathyroidism; Translations: [Secondary hyperparathyroidism] 05-02-2018 Chronic Comment on above: From low vit D, nega tive Sesitmeibi result From low vit D, nega tive Sesitmeibi result, will get Vit D up to 50, will check mag and consider endocrine consult From low vit D, nega tive Sesitmeibi result, will get Vit D up to 50, will check mag and consider endocrine consult, she saw Dr. Escamilla, in past now D normal but parathyroid level increased. repeat vit d level, if we have to can go back to dr. escamilla, she wants to see less doctors so declines for now.From low vit D, negative sestamibi parathyroid scan, got Vit D up to 50, checked mag and endocrine c/s Dr. Escamilla- in past now D normal but parathyroid level increased. repeat vit d level/p th, if we have to can go back to dr. escamilla, she wants to see less doctors so declines for now.From low vit D, negative sestamibi parathyroid scan, got Vit D up to 50, checked mag and endocrine c/s Dr. Escamilla- in past now D normal but parathyroid level increased. Other endocrine disorders (20 sources) Hyperparathyroidism; Translations: [Hyperparathyroidism, unspecified] 05-08-2021 Chronic Other endocrine disorders (20 sources) Hormone increase; Translations: [Elevated parathyroid hormone] 05-06-2018 Episodic Comment on above: and low phosphorus, ? from low D but taking D and still elevated PTH neg parathyroid scan , Magnesium normal, no malabsorption Vit D improved for short time, still with elevated parathyroid, will get D up to 50 with 10,000 daily then repeat in 3 months if still elelvated will send to [facility] Other female genital disorders (4 sources) Enlarged uterus; Translations: [Enlarged uterus] 04-13-2023 Episodic Comment on above: With fibroids. Seen on CT scan done by Dr. Resendiz. Other gastrointestinal disorders (20 sources) Other symptoms involving abdomen and pelvis; Translations: [Abdominal complaints] Resolved : 01-22-20 18 01-21-2018 Episodic Comment on above: resolved Other liver diseases (20 sources) Jaundice, unspecified, not of ; Translations: [Elevated bilirubin] Resolved : 02-03-20 14 01-21-2018 Episodic Other liver diseases (20 sources) Serum lactate dehydrogenase level elevated; Translations: [Elevated LDH] 07-04-2021 Episodic Comment on above: chest, esr, crp, hap toglobin, chest all good Other lower respiratory disease (20 sources) Cough; Translations: [Cough] 12-18-2021 Episodic Comment on above: discontinuelisinopri l as timing seems like related at foollowup if not better will work up Other lower respiratory disease (1 source) Multiple nodules of lung; Translations: [Other nonspecific abnormal finding of lung field] Episodic Other lower respiratory disease (20 sources) Nodule of lung; Translations: [Solitary pulmonary nodule] Episodic Comment on above: CTA chest 06/24/22: 4 mm noncalcified suze-fissural nodule RUL, possibly a lymph node. 4mm noncalcified nodule LLL. No imaging f/u recommended unless risk factors for lung malignancy, then would do f/u CT in 12 months. Other non-traumatic joint disorders (20 sources) Shoulder pain; Translations: [Right shoulder pain] 07-04-2021 Episodic Comment on above: she has has seen Pipo gaoi in past had torn rotator cuff, a steroid shot helped Other non-traumatic joint disorders (14 sources) Pain in right shoulder; Translations: [Right shoulder pain] 08-28-2022 Episodic Comment on above: she has has seen Pipo rodrigezlli in past had torn rotator cuff, a steroid shot helped Other nutritional; endocrine; and metabolic disorders (20 sources) Body mass index 30+ - obesity; Translations: [BMI 30.0-30.9,adult] Resolved : 02-21-20 22 01-21-2018 Chronic Comment on above: a little Other nutritional; endocrine; and metabolic disorders (20 sources) Hypoalbuminemia; Translations: [Hypoalbuminemia] Resolved : 02-03-20 14 01-21-2018 Chronic Other nutritional; endocrine; and metabolic disorders (20 sources) Hypocalcemia; Translations: [Hypocalcemia] Resolved : 02-03-20 14 01-21-2018 Chronic Other nutritional; endocrine; and metabolic disorders (20 sources) Hypophosphatemia; Translations: [Hypophosphatemia] 04-15-2018 Chronic Comment on above: 2.4, will check D Other nutritional; endocrine; and metabolic disorders (20 sources) Body mass index 25-29 - overweight; Translations: [BMI 28.0-28.9,adult] 04-15-2018 Chronic Other nutritional; endocrine; and metabolic disorders (20 sources) Body mass index 25-29 - overweight; Translations: [BMI 28.0-28.9,adult] 05-28-2020 Episodic Other nutritional; endocrine; and metabolic disorders (20 sources) Overweight in adulthood with body mass index of 25 or more but less than 30; Translations: [BMI 28.0-28.9,adult] Resolved : 02-20-20 23 12-31-2021 Episodic Pleurisy; pneumothorax; pulmonary collapse (14 sources) Pleural effusion; Translations: [Pleural effusion, not elsewhere classified] 08-06-2022 Episodic Residual codes; unclassified (20 sources) FH: Diabetes mellitus; Translations: [Family history of diabetes mellitus] 05-06-2018 Episodic Comment on above: -lipids -lipids, monitor a1c and metabolic profile to avoid end organ damage Residual codes; unclassified (20 sources) Family history of diabetes mellitus Episodic Residual codes; unclassified (15 sources) Perimenopausal state; Translations: [Perimenopause] 10-28-2018 Episodic Residual codes; unclassified (20 sources) Non-smoker; Translations: [Nonsmoker] 05-28-2020 Episodic Residual codes; unclassified (20 sources) Postmenopausal state; Translations: [Postmenopausal (Renamed from Postmenopausal status)] 07-04-2021 Episodic Spondylosis; intervertebral disc disorders; other back problems (20 sources) Cervical radiculopathy; Translations: [Cervical radiculopathy, acute] 04-15-2018 Chronic Spondylosis; intervertebral disc disorders; other back problems (20 sources) Neck pain; Translations: [Cervical radiculopathy] 04-15-2018 Episodic Unclassified (20 sources) Breast neoplasm screening status; Translations: [Hormone increase] Onset: 05-05-20 24 04-15-2018 Episodic Comment on above: and low phosphorus, ? from low D but taking D and still elevated PTH neg parathyroid scan , Magnesium normal, no malabsorption Vit D improved for short time, still with elevated parathyroid, will get D up to 50 with 10,000 daily then repeat in 3 months if still elelvated will send to [facility] Unclassified (20 sources) BMI 30.0-30.9,adult Unclassified (20 sources) Unclassified (20 sources) Nonsmoker; Translations: [Non-smoker] 04-15-2018 Unclassified (20 sources) Hypertension, benign Unclassified (20 sources) Encounter for routine adult medical exam with abnormal findings; Translations: [Patient encounter status] 04-15-2018 Unclassified (20 sources) Encounter for screening mammogram for breast cancer (Renamed from Encounter for screening mammogram for malignant neoplasm of breast) Unclassified (20 sources) Encounter for screening for malignant neoplasm of colon (Renamed from Special screening for malignant neoplasms, colon); Translations: [Screening status] 03-01-2017 Unclassified (20 sources) Work Physical (V70.5) Unclassified (20 sources) screening Resolved : 02-03-20 14 02-02-2014 Unclassified (20 sources) Parathyroid abnormality Unclassified (20 sources) Elevated bilirubin (782.4) Unclassified (20 sources) Elevated parathyroid hormone Unclassified (20 sources) Abdominal complaints (789.9) Unclassified (20 sources) MIGRAINE NEC W/ MIGRAINE W/O STAT MIGRAINOSUS (346.81) Unclassified (20 sources) Screening mammogram, encounter for Unclassified (20 sources) Amenorrhea, primary Unclassified (20 sources) BMI 31.0-31.9,adult Unclassified (20 sources) Headache,Migraine (346.00) Unclassified (20 sources) Elevated LDH Unclassified (1 source) Aneurysm of ascending aorta without rupture; Translations: [Aneurysm of ascending aorta without rupture] Onset: 06-24-20 Past or Other Problems Problem Classification Problem Date Documented Date Episodic/Chronic Cardiac and circulatory congenital anomalies (20 sources) H/O cardiac surgery; Translations: [Personal history of (corrected) congenital malformations of heart and circulatory system] Onset: 06-18-2022 06-30-2022 Episodic Comment on above: closed primarily wit h running prolene suture @ [facility] Dr. Jacob Black 06/26/22 Conditions associated with dizziness or vertigo (20 sources) Conditions associated with dizziness or vertigo Headache, including migraine (20 sources) Headache, including migraine Other aftercare (1 source) Encounter for follow-up examination after completed treatment for conditions other than malignant neoplasm; Translations: [Surgery follow-up] Onset: 07-07-2022 Episodic Other nervous system disorders (7 sources) Postoperative pain ; Translations: [Other acute postprocedural pain] Onset: 06-26-2022 06-30-2022 Episodic Other nervous system disorders (1 source) Other acute postprocedural pain; Translations: [Postoperative pain] Onset: 06-30-2022 Episodic Residual codes; unclassified (16 sources) History of repair of ascending aorta; Translations: [Other specified postprocedural states] Onset: 06-18-2022 06-30-2022 Episodic Comment on above: Aortoplasty @ [facility] Dr Deon Black 06/26/22 the patient tolerated procedure well denies any symptoms at this time. This is part of aortic valve replacement for bicuspid aortic valve. Residual codes; unclassified (18 sources) Other specified postprocedural states; Translations: [Personal history of surgery to heart and great vessels, presenting hazards to health] Onset: 06-18-2022 08-04-2022 Episodic Unclassified (17 sources) Increased body mass index; Translations: [Family history of diabetes mellitus] 04-15-2018 Episodic Unclassified (20 sources) UTI symptoms Unclassified (7 sources) Abnormal radiologic findings on diagnostic imaging of unspecified kidney; Translations: [Abnormal renal ultrasound] 04-15-2018 Unclassified (20 sources) Patient encounter status; Translations: [Encounter for gynecological examination without abnormal finding] 04-15-2018 Unclassified (20 sources) Neck pain on left side Unclassified (20 sources) Muscle spasms of neck Unclassified (20 sources) Cervical radiculopathy, acute Unclassified (20 sources) Pregnancies (); Translations: [Pregnancies ()] 04-15-2018 Comment on above: 1. Unclassified (20 sources) BMI 29.0-29.9,adult Unclassified (20 sources) Abnormal Renal Ultrasound (793.5) Unclassified (20 sources) BMI 28.0-28.9,adult Unclassified (20 sources) Deliveries (Parity); Translations: [Deliveries (Parity)] 04-15-2018 Comment on above: 1. Unclassified (20 sources) Screening status; Translations: [Encounter for screening for malignant neoplasm of colon (Renamed from Special screening for malignant neoplasms, colon)] 03-01-2017 Unclassified (20 sources) Non-smoker; Translations: [Nonsmoker] 05-06-2018 Unclassified (20 sources) Encounter for gynecological examination without abnormal finding Unclassified (20 sources) Perimenopause Unclassified (20 sources) Migraine with aura and without status migrainosus, not intractable Unclassified (20 sources) Physical exam without abnormal findings (Renamed from Encounter for routine adult health examination without abnormal findings) Unclassified (16 sources) Right arm pain Unclassified (20 sources) Deliveries (Parity); Translations: [Deliveries (Parity)] 05-28-2020 Comment on above: 1. Unclassified (20 sources) Pregnancies (); Translations: [Pregnancies ()] 05-28-2020 Comment on above: 1. Unclassified (12 sources) Right shoulder pain Unclassified (12 sources) Encounter for screening for other suspected endocrine disorder Unclassified (13 sources) Postmenopausal (Renamed from Postmenopausal status) Unclassified (12 sources) Encounter for general adult medical examination with abnormal findings Urinary tract infections (2 sources) Urinary tract infectious disease; Translations: [UTI symptoms] Resolved: 01-21-2018 01-21-2018 Episodic Comment on above: abnormal on employee physical here normal Urinary tract infections (20 sources) Urinary tract infections Results Test Name Value Interpretation Reference Range Facility Surgical pathology reportOrd ered By: Juan Yeung on 12-28-2024 Surgical pathology study [facility] Caustic Preparer Office Visit Reporton 12-27-2024 Caustic Preparer Office Visit Report [facility]'[address], [address] [place] [address] OFFICE VISIT Date of Service: 12/27/24 MR#: [id number] Acct: [id number] Name: JENARO WILSON Rep #: [id number] : 1960 Provider: CORDELIA aleman Age/Sex: 64/F Location: [facility] Status: Signed Intake Vital Signs 10/18/24 08:14 12/21/24 13:31 12/27/24 10:56 12/27/24 11:02 Height 5 ft 5 in 5 ft 5 in 5 ft 5 in 5 ft 5 in Weight: 191 lb 194 lb 6 oz BMI 31.8 32.3 BP 138/91 H 124/80 H Intake Visit Reasons: EMB Chief Complaint: EMB- 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 Patent 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 Required: No Is patient in pain?: No Allergies No Known Allergies Allergy (Verified 12/27/24 10:55) Medications ???Medication ???Instructions ???Recorded ???Confirmed ???Type aspirin 81 mg chewable tablet 81 mg PO DAILY #1 TAB 04/16/2206/12 Rx ferrous sulfate 325 mg (65 mg 325 mg PO .MWF 06/17/23 12/27/24 H istory iron) tablet mecobalamin (vitamin B12) 500 mcg 500 mcg PO .MWF 06/17/23 12/27/24 History chewable tablet calcium carbonate (Calcium 600) 600 mg PO DAILY 11/17/23 12/27/24 History cholecalciferol (vitamin D3) 50 50 mcg PO QWEEK 11/17/23 12/27/24 History mcg (2,000 unit) capsule losartan 50 mg tablet 50 mg PO DAILY #90 tabs 06/26/24 0 12/27/24 Rx pravastatin 20 mg tablet 20 mg PO QHS #90 tabs 09/04/2406/12 Rx amoxicillin 500 mg capsule 2,000 mg (4 x 500 mg) PO ONCE #12 12/21/24 12/27/24 Rx caps turmeric 400 mg capsule mg PO DAILY 12/21/24 12/27/24 Hist ory Is last menstrual period known: No Post menopausal: Yes Patient : No : No PFSH PFSH Medical History Anemia Pleural effusion, left Fever Cough Dizziness Palpitations Tachycardia Essential hypertension Nonrheumatic aortic (valve) stenosis Bicuspid aortic valve Alcohol use Arthritis Back pain Syncope Non-smoker History of edema Hypertension Hyperparathyroidism Biceps tendonitis on right Partial tear of right rotator cuff AC (acromioclavicular) arthritis Vitamin D deficiency Vitamin D deficiency Benign essential hypertension, age 0-18 Migraine headache Screen for colon cancer Surgical History History of ascending aorta repair ( 06/26/22) History of aortic valve replacement with bioprosthetic valve ( 06/26/22) Status post patent foramen ovale closure ( 06/26/22) History of rotator cuff surgery Hx of colonoscopy History of Family History Mother Hypertension Diabetes Sister Heart valve replaced Aortic aneurysm Social History sexually active: Yes Smoking Status: Never smoker alcohol intake: current alcohol intake frequency: holidays/special occasions only substance use type: does not use caffeine: No what type of physical activity do you participate in: other details: gym frequency: 1-2 times per week do you feel safe at home: Yes History 1 Elective abortions Hx Para 1 Spontaneous abortions Hx # Term Pregnancies Ectopic pregnancies Hx # Pregnancies Multiple births # of living children 1 HPI EMB Details: JENARO WILSON is a 64 year old who presents for endometrial biopsy. Had 1 episode in September 2024 of blood on toilet tissue but thinks from hemorrhoid/constipated. None since. Lining of uterus undetectable. 6cm uterine fibroid. ROS Const Constitutional: Reports system reviewed and no additional complaints, except as documented Eyes Eyes: Reports system reviewed and no additional complaints, except as documented GI GI: Denies abdominal pain or change in bowel habits : Reports as per HPI Exam Const General: cooperative and no acute distress Orientation: oriented x3 General: bladder normal to palpation External Female Exam: normal external appearance and normal appearance of the urethra Urethra: normal appearance of the urethra Speculum Exam - Vagina: normal appearance of the vagina, normal vaginal discharge, no lesions and nontender Speculum Exam - Cervix: normal appearance of the cervix Bimanual Exam- Vagina Uterus: normal bimanual exam, uterine size normal, bladder normal to palpation, uterine shape normal, uterine mobility normal and non-tender Bimanual Exam- Adnexa, other: normal adnexae, no masses and non-tender Office Procedures Endometrial Biopsy Endometrial Biopsy Test: Yes Not Applicable Consent Signed: Yes Time out checklist: patient, procedure, site marked/identified, positioning of patient, supplies available, allergies confirmed and team agrees on procedure Time out time: 11:10 tenaculum us (more content not included)... Normal [facility] Surgery Specimen Level Thao 12-27-2024 Surgery Specimen Level IV Patient Age/Sex Location Account Attending Physician JENARO WILSON 64/F LABSPEC [id number] CORDELIA Bingham Specimen: [id number] Received: 12/27/24 Status: LETY Kincaid Num: [id number] Spec Type: ENDOM BX/C Subm Dr: Nancy Pérez, LESLIEC HEADER OPERATION: Endometrial biopsy PRE-OP DIAGNOSIS: Postmenopausal bleeding TISSUE SUBMITTED: A- Endometrial lining MICROSCOPIC DIAGNOSIS A. Endometrium, biopsy: * Small piece of benign squamous epithelial cells, basophilic mucinous secretory material and fibrinous material * No endometrium is identified MICROSCOPIC DESCRIPTION Slides are reviewed. GROSS DESCRIPTION A. Received in formalin labeled with the patient's name and date of is a 2.2 x 1.7 x 0.1 cm aggregate of mucoid material and flecks of possible soft tissue. The specimen is spun down into a cell block and entirely submitted in 1 cassette. [facility] [place] 12/27/2024 CPT:83483 Patient Age/Sex Location Account Attending Physician KATIE,JENARO JORGITO 64/F LABSPEC [id number] CORDELIA Bingham Signed (signature on file) Dr. Juan Kirk MD 12/28/24 1818 Normal [facility] Comment on above: Performed By: #### P SUIV #### [facility] Laboratory [address] [place] [address], [id number] Cardiology Visit Reporton Cardiology Visit Report [facility] [address] [place] [address]. [address] [place], [place] [address] OFFICE VISIT Date of Service: 12/21/24 MR#: [id number] Acct: [id number] Name: JENARO WILSON Rep #: [id number] : 1960 Provider: Dr. Ronald cano MD Age/Sex: 64/F Location: [facility] [place] Status: Signed HPI HPI History of Present Illness Details: Patient is a pleasant 64-year-old white female who comes in today for monitoring of her cardiovascular status. The patient carries a history of an ascending thoracic aorta repair that was done by Dr. Jacob Trammell at the [facility] June 2022. This was also part of an aortic valve replacement with a for a bicuspid aortic valve. She has a bioprosthetic device. The last echocardiogram September 2022 normal LV function EF 55%, trivial mitral regurgitation trivial tricuspid regurgitation stable bioprosthetic aortic valve prosthesis mild aortic stenosis status post aortic root repair no evidence of diastolic dysfunction. The patient reports she is doing fairly well in her home environment really only complaint is fatigue. She denies any PND orthopnea denies any lower extremity edema. The patient had no coronary artery disease on her cath in 2021 she does have a history of diastolic hypertension blood pressure in office today 125/90 heart rate 89 and regular. Patient also has a history of hyperlipidemia she is well-controlled on pravastatin. The patient is due to have biopsy of her uterus on Wednesday we did prescription her SBE prophylaxis with amoxicillin. Intake Vital Signs 10/18/24 08:14 12/21/24 13:31 Height 5 ft 5 in 5 ft 5 in Weight: 191 lb 195 lb BMI 31.8 32.4 BP 138/91 H 125/90 H Blood Pressure Location Lt brachial Position Sitting Respiration 18 Pulse 89 Pulse Source Monitor Pulse Oximetry (%) 95 Oxygen Delivery Method room air Intake Visit Reasons: 1 Y FU Patent Searcher Required: No Accompanied by: Self Is patient in pain?: No Allergies No Known Allergies Allergy (Verified 12/21/24 13:31) Medications ???Medication ???Instructions ???Recorded ???Confirmed ???Type aspirin 81 mg chewable tablet 81 mg PO DAILY #1 TAB 04/16/2212/10 Rx ferrous sulfate 325 mg (65 mg 325 mg PO .MWF 06/17/23 12/21/24 H istory iron) tablet mecobalamin (vitamin B12) 500 mcg 500 mcg PO .MWF 06/17/23 12/21/24 History chewable tablet calcium carbonate (Calcium 600) 600 mg PO DAILY 11/17/23 12/21/24 History cholecalciferol (vitamin D3) 50 50 mcg PO QWEEK 11/17/23 12/21/24 History mcg (2,000 unit) capsule losartan 50 mg tablet 50 mg PO DAILY #90 tabs 06/26/24 0 12/21/24 Rx pravastatin 20 mg tablet 20 mg PO QHS #90 tabs 09/04/2412/10 Rx amoxicillin 500 mg capsule 2,000 mg (4 x 500 mg) PO ONCE #12 12/21/24 12/21/24 Rx caps turmeric 400 mg capsule mg PO DAILY 12/21/24 12/21/24 Hist ory Ejection fraction %: 55 Have you fallen in the past year?: No PFSH Medical History Anemia Pleural effusion, left Fever Cough Dizziness Palpitations Tachycardia Essential hypertension Nonrheumatic aortic (valve) stenosis Bicuspid aortic valve Alcohol use Arthritis Back pain Syncope Non-smoker History of edema Hypertension Hyperparathyroidism Biceps tendonitis on right Partial tear of right rotator cuff AC (acromioclavicular) arthritis Vitamin D deficiency Vitamin D deficiency Benign essential hypertension, age 0-18 Migraine headache Screen for colon cancer Surgical History History of ascending aorta repair ( 06/26/22) History of aortic valve replacement with bioprosthetic valve ( 06/26/22) Status post patent foramen ovale closure ( 06/26/22) History of rotator cuff surgery Hx of colonoscopy History of Family History Mother Hypertension Diabetes Sister Heart valve replaced Aortic aneurysm Social History sexually active: Yes Smoking Status: Never smoker alcohol intake: current alcohol intake frequency: holidays/special occasions only substance use type: does not use caffeine: No what type of physical activity do you participate in: other details: gym frequency: 1-2 times per week do you feel safe at home: Yes ROS Const Const: Positive for fatigue; Negative for weakness ENT ENT: Negative for dizziness or balance problems Cardio Chest Pain: Yes (pulling when laying on side, starting to improve) Palpitations: No Edema: None Muscle aches with walking: None Resp Respiratory: Negative for SOB with activity, SOB at rest or SOB orthopnea SOB lying down GI (more content not included)... Normal [facility] Caustic Preparer Office Visit Reporton 10-18-2024 Caustic Preparer Office Visit Report [facility], [address] [place] [address] OFFICE VISIT Date of Service: 10/18/24 MR#: [id number] Acct: [id number] Name: JENARO WILSON Rep #: [id number] : 1960 Provider: CORDELIA Basurto Age/Sex: 64/F Location: [facility] [place] Status: Signed Intake Vital Signs 04/13/24 13:47 04/13/24 15:45 10/18/24 08:14 Height 5 ft 5 in 5 ft 5 in 5 ft 5 in Weight: 191 lb BMI 31.8 BP 138/91 H Intake Visit Reasons: Uterine fibroid Patent Searcher Required: No Is patient in pain?: No Allergies No Known Allergies Allergy (Verified 10/18/24 08:13) Medications ???Medication ???Instructions ???Recorded ???Confirmed ???Type aspirin 81 mg chewable tablet 81 mg PO DAILY #1 TAB 04/16/2209/12 Rx ferrous sulfate 325 mg (65 mg 325 mg PO .MWF 06/17/23 10/18/24 H istory iron) tablet mecobalamin (vitamin B12) 500 mcg 500 mcg PO .F 06/17/23 10/18/24 History chewable tablet calcium carbonate (Calcium 600) 600 mg PO DAILY 11/17/23 10/18/24 History cholecalciferol (vitamin D3) 50 50 mcg PO QWEEK 11/17/23 10/18/24 History mcg (2,000 unit) capsule losartan 50 mg tablet 50 mg PO DAILY #90 tabs 06/26/24 0 10/18/24 Rx pravastatin 20 mg tablet 20 mg PO QHS #90 tabs 09/04/2409/12 Rx Post menopausal: Yes Patient : No : No PFSH Medical History Anemia Pleural effusion, left Fever Cough Dizziness Palpitations Tachycardia Essential hypertension Nonrheumatic aortic (valve) stenosis Bicuspid aortic valve Alcohol use Arthritis Back pain Syncope Non-smoker History of edema Hypertension Hyperparathyroidism Biceps tendonitis on right Partial tear of right rotator cuff AC (acromioclavicular) arthritis Vitamin D deficiency Vitamin D deficiency Benign essential hypertension, age 0-18 Migraine headache Screen for colon cancer Surgical History History of ascending aorta repair ( 06/26/22) History of aortic valve replacement with bioprosthetic valve ( 06/26/22) Status post patent foramen ovale closure ( 06/26/22) History of rotator cuff surgery Hx of colonoscopy History of Family History Mother Hypertension Diabetes Sister Heart valve replaced Aortic aneurysm Social History sexually active: Yes Smoking Status: Never smoker alcohol intake: current alcohol intake frequency: holidays/special occasions only substance use type: does not use caffeine: No what type of physical activity do you participate in: other details: gym frequency: 1-2 times per week do you feel safe at home: Yes HPI Uterine fibroid Details: JENARO WILSON is a 64 year old who presents for a follow up on uterine fibroid. She has had her repeat ultrasound. Since her last visit she reports she had a one instance of wiping with red blood on toilet tissue. She is unsure if this was for sure vaginal vs rectal due to hemm. but did notice some mucous with it. She reports this was on one occasion when she wiped only; she had no other bleeding. History 1 Elective abortions Hx Para 1 Spontaneous abortions Hx # Term Pregnancies Ectopic pregnancies Hx # Pregnancies Multiple births # of living children 1 ROS Const Constitutional: Denies body ache, chills, fatigue or fever(s) : Denies pelvic pain, vaginal discharge, vaginal dryness, vaginal odor or vaginal pruritus Exam Const General: cooperative, healthy appearing, comfortable, no acute distress, well groomed and well hydrated Nutritional Appearance: well nourished Orientation: alert, awake and oriented x3 Resp Effort Inspection: normal respiratory effort, able to speak in complete sentences and symmetric chest movement GI Inspection: normal to inspection General: bladder normal to palpation External Female Exam: normal external appearance and normal appearance of the urethra Urethra: normal appearance of the urethra Speculum Exam - Vagina: normal appearance of the vagina, normal vaginal discharge, no lesions and nontender Speculum Exam - Cervix: normal appearance of the cervix, no lesions and no masses Bimanual Exam- Vagina Uterus: normal bimanual exam, uterine size normal, bladder normal to palpation, normal palpation and non-tender Bimanual Exam- Adnexa, other: normal adnexae, no masses, normal and non-tender Pelvic Support: normal Neuro General: patient alert, patient awake, patient oriented x3 and moves all extremities Psych Appearance: grossly normal Mental Status: mental status grossly normal Affect: normal affect Speech and Movement: s (more content not included)... Normal [facility] Pelvic w/ Transvaginalon Pelvic w/ Transvaginal [facility] [address] [place], [place] [id number] Pelvic w/ Transvaginal MR#: [id number] Acct: [id number] Name: JENARO WILSON Rep #: [id number] : 1960 F 64 From: Jovany Suárez DO PCP: CRODELIA Paul Status: DEP CLI Study: Pelvic w/ Transvaginal Date of Exam: 10/12/24 Exam# [id number] Ordering Dr: Judy Hendricks ADDENDUM by Dr. Jovany Suárez DO on 10/24/24 at 1758 The current study straits a 6.6 cm fibroid tumor the prior ultrasound dated 03/16/2024 showed a fibroid measuring slightly more than the current measurement. It is probably more likely that the difference is due to interobserver variation as opposed to degeneration of the fibroid Reading Location: [facility] 10/24/24 1759 Date cc: CORDELIA Hendricks; CORDELIA Alba * Signed PROCEDURE: PELVIC W/ TRANSVAGINAL 10/12/2024 REASON FOR EXAM: RE-EVAL UTERINE FIBROID. TECHNIQUE: Ultrasound of the pelvis was performed with grayscale and color Doppler imaging.. COMPARISON: None. FINDINGS: Uterus: 10.5 cm mL by 7.4 cm AP x 7.2 cm T. uterus is anteverted. In the myometrium there is a 6.6 cm fibroid. Endometrium is not visible. Ovaries are not visible. US/Pelvic w/ Transvaginal IMPRESSION: Uterus is large. At least 1 large fibroid identified. Others are possible Important structures including both ovaries and endometrium are not visualized. Reading [facility] CC: CORDELIA Hendricks; CORDELIA Alba Imaging Science Professor: Signed Normal [facility] PAP IG HPV APTIMA 16/18,45on 04-21-2024 ADEQ Comment Normal . [facility] Comment on above: Order Comment: Speci men Comment: [id number] Specimen Comment: Source.............Cervix;Endocervix Specimen Comment: No. of containers..01 ThinPrep Vial Result Comment: Sati sfactory for evaluation. Endocervical and/or squamous metaplastic cells (endocervical component) are present. Performed By: #### L 7400.0280 #### [facility] [address] [place], [place], [id number] COMM . Normal . [facility] Comment on above: Order Comment: Speci men Comment: [id number] Specimen Comment: Source.............Cervix;Endocervix Specimen Comment: No. of containers..01 ThinPrep Vial Performed By: #### L 7400.0280 #### [facility] [address] [place], [place], [id number] COMMENT Comment Normal . [facility] Comment on above: Order Comment: Speci men Comment: [id number] Specimen Comment: Source.............Cervix;Endocervix Specimen Comment: No. of containers..01 ThinPrep Vial Result Comment: This liquid based ThinPrep(R) pap test was screened with the use of an image guided system. Performed By: #### L 7400.0280 #### [facility] [address] [place], [place], [id number] DIAG Comment Normal . [facility] Comment on above: Order Comment: Speci men Comment: [id number] Specimen Comment: Source.............Cervix;Endocervix Specimen Comment: No. of containers..01 ThinPrep Vial Result Comment: NEGA TIVE FOR INTRAEPITHELIAL LESION OR MALIGNANCY. THIS SPECIMEN WAS RESCREENED PART OF OUR MANAGER SHIP PROGRAM. Performed By: #### L 7400.0280 #### [facility] [address] [place], [place], [id number] HPV APTIMA, HR Negative Normal Negative [facility] Comment on above: Order Comment: Speci men Comment: [id number] Specimen Comment: Source.............Cervix;Endocervix Specimen Comment: No. of containers..01 ThinPrep Vial Result Comment: This nucleic acid amplification test detects fourteen high- risk HPV types (16,18,31,33,35,39,45,51,52,56,58,59,66,68) without differentiation. Performed By: #### L 7400.0280 #### [facility] [address] [place], [place], [id number] HPV Danica Rfx Comment Normal . [facility] Comment on above: Order Comment: Speci men Comment: [id number] Specimen Comment: Source.............Cervix;Endocervix Specimen Comment: No. of containers..01 ThinPrep Vial Result Comment: Crit eria not met, HPV Genotype not performed. Performed at: - [address] [id number] Machine Accountant: Laurie Mcarthur MD, Phone: [phone] Performed at: = - [address] [id number] Machine Accountant: Laurie Mcarthur MD, Phone: [phone] Performed By: #### L 7400.0280 #### [facility] [address] [place], [place], [id number] PAPSMR Comment Normal . [facility] Comment on above: Order Comment: Speci men Comment: [id number] Specimen Comment: Source.............Cervix;Endocervix Specimen Comment: No. of containers..01 ThinPrep Vial Result Comment: The Pap smear is a screening test designed to aid in the detection of premalignant and malignant conditions of the uterine cervix. It is not a diagnostic procedure and should not be used as the sole means of detecting cervical cancer. Both false-positive and false-negative reports do occur. Performed By: #### L 7400.0280 #### [facility] [address] [place], [address] PERFORM Comment Normal . [facility] Comment on above: Order Comment: Speci men Comment: [id number] Specimen Comment: Source.............Cervix;Endocervix Specimen Comment: No. of containers..01 ThinPrep Vial Result Comment: Josiane Hayden Track Equipment Operator (ASCP) Performed By: #### L 7400.0280 #### [facility] [address] [place], [place], [address] QC REV Comment Normal . [facility] Comment on above: Order Comment: Speci men Comment: [id number] Specimen Comment: Source.............Cervix;Endocervix Specimen Comment: No. of containers..01 ThinPrep Vial Result Comment: Mariya Kidd, Track Equipment Operator (ASCP) Performed By: #### L 7400.0280 #### [facility] [address] [place], [place], [address] Caustic Preparer Office Visit Reporton 04-13-2024 Caustic Preparer Office Visit Report [facility]'s [address], [address] [place] [address] OFFICE VISIT Date of Service: 04/13/24 MR#: [id number] Acct: [id number] Name: JENARO WILSON Rep #: [id number] : 1960 Provider: CORDELIA Basurto Age/Sex: 63/F Location: [facility] [place] Status: Signed Intake Vital Signs 11/17/23 13:53 04/13/24 13:43 04/13/24 13:47 Height 5 ft 5 in 5 ft 5 in 5 ft 5 in Weight: 187 lb 193 lb BMI 31.1 32.1 BP 128/92 H 126/85 H Blood Pressure Location Lt brachial Position Sitting Respiration 18 Pulse 89 Pulse Source Monitor Intake Visit Reasons: PELVIC PAIN (CIM) [facility] Employee Chief Complaint: pelvic pain Patent Searcher Required: No Is patient in pain?: No Allergies No Known Allergies Allergy (Verified 04/13/24 13:45) Medications ???Medication ???Instructions ???Recorded ???Confirmed ???Type aspirin 81 mg chewable tablet 81 mg PO DAILY #1 TAB 04/16/22 04/13/24 Rx ferrous sulfate 325 mg (65 mg 325 mg PO .MWF 06/17/23 04/13/24 History iron) tablet losartan 50 mg tablet 50 mg PO DAILY #90 tabs 06/17/23 04/13/24 Rx mecobalamin (vitamin B12) 500 mcg 500 mcg PO .MWF 06/17/23 04/13/24 History chewable tablet pravastatin 20 mg tablet 20 mg PO QHS #90 tabs 06/17/23 04/13/24 Rx calcium carbonate (Calcium 600) 600 mg PO DAILY 11/17/23 04/13/24 History cholecalciferol (vitamin D3) 50 50 mcg PO QWEEK 11/17/23 04/13/24 History mcg (2,000 unit) capsule Is last menstrual period known: No Post menopausal: Yes Patient : No : No Control [facility] History Anemia Pleural effusion, left Fever Cough Dizziness Palpitations Tachycardia Essential hypertension Nonrheumatic aortic (valve) stenosis Bicuspid aortic valve Alcohol use Arthritis Back pain Syncope Non-smoker History of edema Hypertension Hyperparathyroidism Biceps tendonitis on right Partial tear of right rotator cuff AC (acromioclavicular) arthritis Vitamin D deficiency Vitamin D deficiency Benign essential hypertension, age 0-18 Migraine headache Screen for colon cancer Surgical History History of ascending aorta repair ( 06/26/22) History of aortic valve replacement with bioprosthetic valve ( 06/26/22) Status post patent foramen ovale closure ( 06/26/22) History of rotator cuff surgery Hx of colonoscopy History of Family History Mother Hypertension Diabetes Sister Heart valve replaced Aortic aneurysm Social History (Updated 04/13/24 @ 13:46 by Dorita Muse) sexually active: Yes Smoking Status: Never smoker alcohol intake: current alcohol intake frequency: holidays/special occasions only substance use type: does not use caffeine: No what type of physical activity do you participate in: other details: gym frequency: 1-2 times per week do you feel safe at home: Yes HPI PELVIC PAIN (CIM) [facility] Employee Details: JENARO WILSON is a 63 year old who presents for pelvic pain that was approx 6-7 months ago. She reports she no current pelvic pain. She reports occasionally with intercourse. She reports her LMP was more than 3 years ago. She states that there has been NO vaginal bleeding or PMB. She is currently asymptomatic and came because they told me to get it checked. Female Reproductive History Questions: sexually active: Yes, dyspareunia: Yes (occasionally.) and PCB: No History 1 Elective abortions Hx Para 1 Spontaneous abortions Hx # Term Pregnancies Ectopic pregnancies Hx # Pregnancies Multiple births # of living children 1 ROS Const Constitutional: Denies body ache, chills, fatigue or fever(s) : Denies pelvic pain, vaginal discharge, vaginal dryness, vaginal odor or vaginal pruritus Exam Const General: cooperative, healthy appearing, comfortable, no acute distress, well groomed and well hydrated Nutritional Appearance: well nourished Orientation: alert, awake and oriented x3 HENMT Head: normal to inspection and normocephalic Ears: hearing grossly normal bilaterally and external ears normal Nose: external nose normal Face and sinus: normal facial exam Eyes General: appearance normal, both eyes and all related structures Neck Neck: normal visual inspection, full ROM and no lymphadenopathy Resp Effort Inspection: normal respiratory effort, able to speak in complete sentences and symmetric chest movement GI Inspection: normal to inspection General: bladder normal to palpation External Female Exam: normal external appearance and normal appearance of the urethra Urethra: normal appearance of the urethra Speculum E (more content not included)... Normal [facility] Pelvic (Non )on 02-17 Pelvic (Non ) [facility] [address] [place] [address] Pelvic (Non ) MR#: [id number] Acct: [id number] Name: JENARO WILSON Rep #: [id number] : 1960 F 63 From: Gómez Solorzano MD PCP: CORDELIA Paul Status: REG CLI Study: Pelvic (Non ) Date of Exam: 03/16/24 Exam# [id number] Ordering Dr: Asa Alba [id number] STUDY: ULTRASOUND OF THE FEMALE PELVIS - COMPLETE REASON FOR EXAM: Female, 63 years old. Transvag/abdom. dyspareunia, fibroids on CT -- Transvag/abdom. dyspareunia, fibroids on CT LMP: TECHNIQUE: Transabdominal and transvaginal TECHNICAL QUALITY: Adequate. COMPARISON: CT March 26, 2023. FINDINGS: The uterus is anteverted and is in a midline position. The uterus measures 8.6 x 7.4 x 5.9 cm. Normal uterine cervix. The endometrial thickness is not clearly visualized There is no demonstrated endometrial mass. There is a fibroid measuring 7.6 x 7.4 x 6.7 cm. I.U.D. - The patient does not have an I.U.D. there is a small complex structure in the lower uterine segment measuring approximately 1.14 x 0.53 cm. This could represent an atypical nabothian cyst or less likely cervical fibroid due to lack of vascularity. MRI may be useful for more definitive evaluation if clinically warranted Neither of the ovaries is visualized. There is no adnexal mass.. There is no fluid in the cul-de-sac. US/Pelvic (Non ) IMPRESSION: Large intrauterine fibroid measuring approximately 7.6 x 7.4 x 6.7 cm Incidental finding of small nodule within the cervix possibly representing cervical fibroid Clinical correlation recommended. MRI may be useful for more definitive evaluation. Electronically Signed: Gómez Solorzano MD at 19:52 EDT Reading Location ID and State: [facility] / [place] Tel , Service support , CC: CORDELIA Alba Imaging Science Professor: Signed Normal [facility] CBC, Employeeon 02-21-2024 Absolute Lymph 1.48 X10 3/uL Normal 0.83-4.51 [facility] Comment on above: Performed By: #### L 500.2900, L400.0100, L100.0200 #### [facility] [address] [place], [address] Absolute Neut 4.4 X10 3/uL Normal 2.0-7.7 [facility] Comment on above: Performed By: #### L 500.2900, L400.0100, L100.0200 #### [facility] [facility] [address] [place], [address] Basophils/100 WBC (Bld) 0.6 % Normal 0-1 [facility] Comment on above: Performed By: #### L 500.2900, L400.0100, L100.0200 #### [facility] [address] [place], [address] Eosinophils/100 WBC (Bld) 3.4 % Normal 0-5 [facility] Comment on above: Performed By: #### L 500.2900, L400.0100, L100.0200 #### [facility] [address] [place], [address] Erythrocyte distribution width (RBC) [Ratio] 12.4 % Normal 11.6-14.6 [facility] Comment on above: Performed By: #### L 500.2900, L400.0100, L100.0200 #### [facility] [address] [place], [address] Hematocrit (Bld) [Volume fraction] 37.7 % Normal 37-47 [facility] Comment on above: Performed By: #### L 500.2900, L400.0100, L100.0200 #### [facility] [address] [place], [address] Hemoglobin (Bld) [Mass/Vol] 12.5 g/dL Normal 12.0-15.0 [facility] Comment on above: Performed By: #### L 500.2900, L400.0100, L100.0200 #### [facility] [address] [place], [address] Lymphocytes/100 WBC (Bld) 22.0 % Normal 19-41 [facility] Comment on above: Performed By: #### L 500.2900, L400.0100, L100.0200 #### [facility] [address] [place], [address] MCH (RBC) [Entitic mass] 30.3 pg Normal 27.0-32.0 [facility] Comment on above: Performed By: #### L 500.2900, L400.0100, L100.0200 #### [facility] [address] [place], [address] MCHC (RBC) [Mass/Vol] 33.2 g/dL Normal 32-36 [facility] Comment on above: Performed By: #### L 500.2900, L400.0100, L100.0200 #### [facility] [address] [place], [address] MCV (RBC) [Entitic vol] 91.3 fL Normal 81-99 [facility] Comment on above: Performed By: #### L 500.2900, L400.0100, L100.0200 #### [facility] [address] [place], [address] Monocytes/100 WBC (Bld) 7.9 % Normal 0-10 [facility] Comment on above: Performed By: #### L 500.2900, L400.0100, L100.0200 #### [facility] [address] [place], [address] Neutrophils/100 WBC (Bld) 65.8 % Normal 47-70 [facility] Comment on above: Performed By: #### L 500.2900, L400.0100, L100.0200 #### [facility] [address] [place], [address] NRBC # 0.00 10 3/uL Normal 0-5 [facility] Comment on above: Performed By: #### L 500.2900, L400.0100, L100.0200 #### [facility] [address] [place], [address] Nucleated RBC (Bld) [#/Vol] 0 10*3/uL Normal 0-5 [facility] Comment on above: Performed By: #### L 500.2900, L400.0100, L100.0200 #### [facility] [address] [place], [address] Platelet mean volume (Bld) [Entitic vol] 11.4 fL Normal 6.2-12.0 [facility] Comment on above: Performed By: #### L 500.2900, L400.0100, L100.0200 #### [facility] [address] [place], [address] Platelets (Bld) [#/Vol] 252 10*3/uL Normal 150-450 [facility] Comment on above: Performed By: #### L 500.2900, L400.0100, L100.0200 #### [facility] [address] [place], [address] RBC (Bld) [#/Vol] 4.13 10*6/uL Low 4.2-5.4 [facility] Comment on above: Performed By: #### L 500.2900, L400.0100, L100.0200 #### [facility] [address] [place], [address] RDW SD 41.1 fl Normal 35.1-43.9 [facility] Comment on above: Performed By: #### L 500.2900, L400.0100, L100.0200 #### [facility] [address] [place], [address] WBC (Bld) [#/Vol] 6.7 10*3/uL Normal 4.4-11.0 [facility] Comment on above: Performed By: #### L 500.2900, L400.0100, L100.0200 #### [facility] [address] [place], [address] [employer] 4 Albumin [Mass/Vol] 3.2 g/dL Normal 3.2-5.0 [facility] Comment on above: Performed By: #### L 500.2900, L400.0100, L100.0200 #### [facility] [address] [place], [address] Albumin/Globulin [Mass ratio] 0.9 {ratio} Normal 0.9-2.4 [facility] Comment on above: Performed By: #### L 500.2900, L400.0100, L100.0200 #### [facility] [address] [place], [address] ALK P 92 U/L Normal 45-117 [facility] Comment on above: Performed By: #### L 500.2900, L400.0100, L100.0200 #### [facility] [address] [place], [address] ALT [Catalytic activity/Vol] 33 U/L Normal 13-56 [facility] Comment on above: Performed By: #### L 500.2900, L400.0100, L100.0200 #### [facility] [address] [place], [address] AST [Catalytic activity/Vol] 28 U/L Normal 15-37 [facility] Comment on above: Performed By: #### L 500.2900, L400.0100, L100.0200 #### [facility] [address] [place], [address] Bilirubin [Mass/Vol] 0.80 mg/dL Normal 0.20-1.00 [facility] Comment on above: Result Comment: For patients on eltrombopag therapy, use of Dimension [place] TBIL is not recommended. Performed By: #### L 500.2900, L400.0100, L100.0200 #### [facility] [address] [place], [address] Bilirubin.direct [Mass/Vol] 0.19 mg/dL Normal 0.00-0.30 [facility] Comment on above: Performed By: #### L 500.2900, L400.0100, L100.0200 #### [facility] [address] [place], [address] BUN/CRE 32.3 RATIO High 10-20 [facility] Comment on above: Performed By: #### L 500.2900, L400.0100, L100.0200 #### [facility] [address] [place], [address] CA,Total 9.0 mg/dL Normal 8.5-10.1 [facility] Comment on above: Performed By: #### L 500.2900, L400.0100, L100.0200 #### [facility] [address] [place], [address] Chloride [Moles/Vol] 112 mmol/L High 98-107 [facility] Comment on above: Performed By: #### L 500.2900, L400.0100, L100.0200 #### [facility] [address] [place], [address] CHOL:HDL 2.20 Normal [facility] Comment on above: Performed By: #### L 500.2900, L400.0100, L100.0200 #### [facility] [address] [place], [address] Cholesterol [Mass/Vol] 141 mg/dL Normal 200 [facility] Comment on above: Result Comment: <200 mg/dL Desirable 200-240 mg/dL Borderline >240 mg/dL High Risk Performed By: #### L 500.2900, L400.0100, L100.0200 #### [facility] [address] [place], [address] Cholesterol in HDL [Mass/Vol] 65 mg/dL Normal [facility] Comment on above: Result Comment: The drugs N-Acetylcysteine and Metamizole may falsely depress this assay. Reference Range HDL <40 mg/dL Low HDL Cholesterol HDL >or= 60 mg/dL High HDL Cholesterol Performed By: #### L 500.2900, L400.0100, L100.0200 #### [facility] [address] [place], [address] Cholesterol in LDL [Mass/Vol] 61 mg/dL Normal 0-130 [facility] Comment on above: Performed By: #### L 500.2900, L400.0100, L100.0200 #### [facility] [address] [place], [address] Cholesterol in VLDL [Mass/Vol] 15 mg/dL Normal 5-40 [facility] Comment on above: Performed By: #### L 500.2900, L400.0100, L100.0200 #### [facility] [address] [place], [address] CO2 [Moles/Vol] 24.0 mmol/L Normal 21.0-32.0 [facility] Comment on above: Performed By: #### L 500.2900, L400.0100, L100.0200 #### [facility] [address] [place], [address] Creatinine [Mass/Vol] 0.80 mg/dL Normal 0.55-1.02 [facility] Comment on above: Result Comment: The validity of the calculated GFR GFRAA in patients over 70 years has not been determined. Clinical correlation is essential. Performed By: #### L 500.2900, L400.0100, L100.0200 #### [facility] [address] [place], [address] EST GFR - AA 93 mL/min Normal >60 [facility] Comment on above: Result Comment: Afri can [place] GFR Calc Performed By: #### L 500.2900, L400.0100, L100.0200 #### [facility] [address] [place], [address] GAP 6 Normal 5-15 [facility] Comment on above: Performed By: #### L 500.2900, L400.0100, L100.0200 #### [facility] [address] [place], [address] GFR/1.73 sq M.predicted among non-blacks MDRD (S/P/Bld) [Vol rate/Area] 77 mL/min/{1.73_m2} Normal >60 [facility] Comment on above: Result Comment: Non- GFR Calc Performed By: #### L 500.2900, L400.0100, L100.0200 #### [facility] [address] [place], [address] Globulin (S) [Mass/Vol] 3.7 g/dL Normal 2.2-4.2 [facility] Comment on above: Performed By: #### L 500.2900, L400.0100, L100.0200 #### [facility] [address] [place], [address] Glucose [Mass/Vol] 97 mg/dL Normal 74-106 [facility] Comment on above: Performed By: #### L 500.2900, L400.0100, L100.0200 #### [facility] [address] [place], [address] LDH 240 U/L Normal 84-246 [facility] Comment on above: Performed By: #### L 500.2900, L400.0100, L100.0200 #### [facility] [address] [place], [address] Phosphate [Mass/Vol] 3.2 mg/dL Normal 2.5-4.9 [facility] Comment on above: Performed By: #### L 500.2900, L400.0100, L100.0200 #### [facility] [address] [place], [address] Potassium [Moles/Vol] 4.4 mmol/L Normal 3.5-5.1 [facility] Comment on above: Performed By: #### L 500.2900, L400.0100, L100.0200 #### [facility] [address] [place], [address] Sodium [Moles/Vol] 142 mmol/L Normal 136-145 [facility] Comment on above: Performed By: #### L 500.2900, L400.0100, L100.0200 #### [facility] [address] [place], [address] T PROT 6.9 g/dL Normal 6.4-8.2 [facility] Comment on above: Performed By: #### L 500.2900, L400.0100, L100.0200 #### [facility] [address] [place], [address] Triglyceride [Mass/Vol] 74 mg/dL Normal [facility] Comment on above: Result Comment: The drugs N-Acetylcysteine and Metamizole may falsely depress this assay. Serum Triglycerides Reference Interval Normal <150 mg/dL Borderline high 150 - 199 mg/dL High 200 - 499 mg/dL Very High > or = 500 mg/dL Performed By: #### L 500.2900, L400.0100, L100.0200 #### [facility] [address] [place], [address] Urea nitrogen [Mass/Vol] 26 mg/dL High 7-18 [facility] Comment on above: Performed By: #### L 500.2900, L400.0100, L100.0200 #### [facility] [address] [place], [address] URIC 5.3 mg/dL Normal 2.6-6.0 [facility] Comment on above: Result Comment: The drugs N-Acetylcysteine and Metamizole may falsely depress this assay. Performed By: #### L 500.2900, L400.0100, L100.0200 #### [facility] [address] [place], [address] Urinalysis, Employeeon 02-20 BILIRUBIN URINE Negative Normal Negative [facility] Comment on above: Performed By: #### L 500.2900, L400.0100, L100.0200 #### [facility] [address] [place], [address] Clarity (U) Sl. Cloudy Normal Clear [facility] Comment on above: Performed By: #### L 500.2900, L400.0100, L100.0200 #### [facility] [address] [place], [address] Color (U) Yellow Normal Yellow [facility] Comment on above: Performed By: #### L 500.2900, L400.0100, L100.0200 #### [facility] [address] [place], [address] GLUCOSE, UR Normal Normal Normal [facility] Comment on above: Performed By: #### L 500.2900, L400.0100, L100.0200 #### [facility] [address] [place], [address] KETONE UR Negative Normal Negative [facility] Comment on above: Performed By: #### L 500.2900, L400.0100, L100.0200 #### [facility] [address] [place], [address] LEUK ESTERASE Negative Normal Negative [facility] Comment on above: Performed By: #### L 500.2900, L400.0100, L100.0200 #### [facility] [address] [place], [address] Nitrite Ql (U) Negative Normal Negative [facility] Comment on above: Performed By: #### L 500.2900, L400.0100, L100.0200 #### [facility] [address] [place], [address] OCCULT BLOOD-UR 10 /ul Abnormal Negative [facility] Comment on above: Performed By: #### L 500.2900, L400.0100, L100.0200 #### [facility] [address] [place], [address] pH UR 5.0 Normal 5.0 - 8.0 [facility] Comment on above: Performed By: #### L 500.2900, L400.0100, L100.0200 #### [facility] [address] [place], [address] PROT DIPSTX 15 mg/dl Abnormal Negative [facility] Comment on above: Performed By: #### L 500.2900, L400.0100, L100.0200 #### [facility] [address] [place], [address] SP.GR. DIPSTX 1.025 Normal 1.002-1.03 0 [facility] Comment on above: Performed By: #### L 500.2900, L400.0100, L100.0200 #### [facility] [address] [place], [address] UROBILI 1 mg/dl Abnormal Normal [facility] Comment on above: Performed By: #### L 500.2900, L400.0100, L100.0200 #### [facility] [address] [place], [address] Absolute lymphocyte countOrd ered By: HEALTH ASSESSMENT on 02-16-2023 Lymphocytes Auto (Unsp spec) [#/Vol] 1.38 10*3/uL 0.83-4.51 [facility] Absolute reticulocyte countO rdered By: HEALTH ASSESSMENT on 02-16-2023 Reticulocytes (Bld) [#/Vol] 0.00 10*3/uL 0-5 [facility] Basophil percentageOrdered B y: HEALTH ASSESSMENT on 02-16-2023 Basophil percentage 3.4 mg/dL 2.5-4.9 [facility] Bilirubin [Mass/Vol] 0.60 mg/dL 0.20-1.00 [facility] Comment on above: For patients on eltr ombopag therapy, use of Dimension [place] TBIL is not recommended. Chloride [Moles/Vol] 111 mmol/L 98-107 [facility] Cholesterol [Mass/Vol] 175 mg/dL <200 [facility] Comment on above: <200 mg/dL Desirable 200-240 mg/dL Borderline >240 mg/dL High Risk Glucose [Mass/Vol] 87 mg/dL 74-106 [facility] LDH [Catalytic activity/Vol] 204 U/L 84-246 [facility] Neutrophils (Bld) [#/Vol] 3.6 10*3/uL 2.0-7.7 [facility] Potassium [Moles/Vol] 4.2 mmol/L 3.5-5.1 [facility] Protein [Mass/Vol] 6.9 g/dL 6.4-8.2 [facility] Sodium [Moles/Vol] 141 mmol/L 136-145 [facility] Triglyceride [Mass/Vol] 86 mg/dL <199 [facility] Comment on above: The drugs N-Acetylcy steine and Metamizole may falsely depress this assay.Serum Triglycerides Reference Interval Normal <150 mg/dL Borderline high 150 - 199 mg/dL High 200 - 499 mg/dL Very High > or = 500 mg/dL WBC (Bld) [#/Vol] 5.6 10*3/uL 4.4-11.0 [facility] Bilirubin Test strip Ql (U)O rdered By: HEALTH ASSESSMENT on 02-16-2023 Bilirubin Ql (U) Negative Negative [facility] Blood erythrocytes count (nu mber/volume)Ordered By: HEALTH ASSESSMENT on 02-16-2023 RBC (Bld) [#/Vol] 4.15 10*6/uL 4.2-5.4 [facility] Blood hemoglobin measurement (mass/volume)Ordered By: HEALTH ASSESSMENT on 02-16-2023 Hemoglobin (Bld) [Mass/Vol] 12.2 g/dL 12.0-15.0 [facility] Blood platelet mean volumeOr dered By: HEALTH ASSESSMENT on 02-16-2023 Platelet mean volume (Bld) [Entitic vol] 10.8 fL 6.2-12.0 [facility] Determination of erythrocyte mean corpuscular volume (MCV)Ordered By: HEALTH ASSESSMENT on 02-16-2023 MCV (RBC) [Entitic vol] 91.8 fL 81-99 [facility] Direct bilirubinOrdered By: HEALTH ASSESSMENT on 02-16-2023 Bilirubin.direct [Mass/Vol] 0.15 mg/dL 0.00-0.30 [facility] Hematocrit Auto (Bld) [Volum e fraction]Ordered By: HEALTH ASSESSMENT on 02-16-2023 Hematocrit (Bld) [Volume fraction] 38.1 % 37-47 [facility] Ketones Test strip Ql (U)Ord ered By: HEALTH ASSESSMENT on 02-16-2023 Ketones Ql (U) Negative Negative [facility] - Chemistry and C hemistry - challengeOrdered By: HEALTH ASSESSMENT on 02-16-2023 ALP [Catalytic activity/Vol] 97 U/L 45-117 [facility] ALT [Catalytic activity/Vol] 29 U/L 13-56 [facility] Cholesterol.total/Cho lesterol in HDL [Mass ratio] 2.70 {ratio} [facility] CO2 [Moles/Vol] 28.0 mmol/L 21.0-32.0 [facility] Globulin (S) [Mass/Vol] 3.7 g/dL 2.2-4.2 [facility] Urea nitrogen/Creatinine [Mass ratio] 29.5 mg/mg 10-20 [facility] - Hematology and Cell countsOrdered By: HEALTH ASSESSMENT on 02-16-2023 Erythrocyte distribution width (RBC) [Entitic vol] 41.6 fL 35.1-43.9 [facility] Erythrocyte distribution width (RBC) [Ratio] 12.5 % 11.6-14.6 [facility] MCH (RBC) [Entitic mass] 29.4 pg 27.0-32.0 [facility] Nucleated RBC/100 WBC (Bld) [Ratio] 0 % 0-5 [facility] MCHC Auto (RBC) [Mass/Vol]Or dered By: HEALTH ASSESSMENT on 02-16-2023 MCHC (RBC) [Mass/Vol] 32.0 g/dL 32-36 [facility] Nitrite Test strip Ql (U)Ord ered By: HEALTH ASSESSMENT on 02-16-2023 Nitrite Ql (U) Negative Negative [facility] No Panel InformationOrdered By: HEALTH ASSESSMENT on 02-16-2023 Estimated GFR (MDRD) Amer 120 mL/min >60 [facility] Comment on above: GFR Calc Estimated GFR (MDRD) Non-Af Amer 99 mL/min >60 [facility] Comment on above: Non- GFR Calc Platelets bldOrdered By: BETHANY LT ASSESSMENT on 02-16-2023 Platelets (Bld) [#/Vol] 284 10*3/uL 150-450 [facility] Protein Test strip Ql (U)Ord ered By: HEALTH ASSESSMENT on 02-16-2023 Protein Ql (U) Negative Negative [facility] Segmented neutrophils/100 WB C Auto (Bld)Ordered By: HEALTH ASSESSMENT on 02-16-2023 Segmented neutrophils/100 WBC (Bld) 63.3 % 47-70 [facility] Serum or plasma albumin jose urement (mass/volume)Ordered By: HEALTH ASSESSMENT on 02-16-2023 Albumin [Mass/Vol] 3.2 g/dL 3.2-5.0 [facility] Serum or plasma albumin/glob ulin mass ratioOrdered By: HEALTH ASSESSMENT on 02-16-2023 Albumin/Globulin [Mass ratio] 0.9 {ratio} 0.9-2.4 [facility] Serum or plasma calcium jose urement (mass/volume)Ordered By: HEALTH ASSESSMENT on 02-16-2023 Calcium [Mass/Vol] 9.2 mg/dL 8.5-10.1 [facility] Serum or plasma cholesterol in HDL measurement (mass/volume)Ordered By: HEALTH ASSESSMENT on 02-16-2023 Cholesterol in HDL [Mass/Vol] 65 mg/dL >40 [facility] Comment on above: The drugs N-Acetylcy steine and Metamizole may falsely depress this assay. Reference Range HDL <40 mg/dL Low HDL Cholesterol HDL >or= 60 mg/dL High HDL Cholesterol Serum or plasma cholesterol in VLDL measurement (mass/volume)Ordered By: HEALTH ASSESSMENT on 02-16-2023 Cholesterol in VLDL [Mass/Vol] 17 mg/dL 5-40 [facility] Serum or plasma creatinine m easurement (mass/volume)Ordered By: HEALTH ASSESSMENT on 02-16-2023 Creatinine [Mass/Vol] 0.64 mg/dL 0.55-1.02 [facility] Comment on above: The validity of the calculated GFR & GFRAA in patients over 70 years has not been determined. Clinical correlation is essential. Serum or plasma low density lipoprotein (LDL) cholesterol measurement (mass/volume)Ordered By: HEALTH ASSESSMENT on 02-16-2023 Cholesterol in LDL [Mass/Vol] 93 mg/dL 0-130 [facility] Serum or plasma urea nitroge n measurement (mass/volume)Ordered By: HEALTH ASSESSMENT on 02-16-2023 Urea nitrogen [Mass/Vol] 19 mg/dL 7-18 [facility] Serum or plasma uric acid me asurement (mass/volume)Ordered By: HEALTH ASSESSMENT on 02-16-2023 Urate [Mass/Vol] 4.5 mg/dL 2.6-6.0 [facility] Comment on above: The drugs N-Acetylcy steine and Metamizole may falsely depress this assay. Thin prep Papanicolaou smear with manual screeningOrdered By: HEALTH ASSESSMENT on 02-16-2023 Thin prep Papanicolaou smear with manual screening 22 U/L 15-37 [facility] Thin prep Papanicolaou smear with manual screening 2 5-15 [facility] Urine blood detectionOrdered By: HEALTH ASSESSMENT on 02-16-2023 RBC Ql (U) 10 /ul Negative [facility] Urine clarityOrdered By: [facility] ASSESSMENT on 02-16-2023 Clarity (U) Sl. Cloudy Clear [facility] [facility] Urine color determinationOrd ered By: HEALTH ASSESSMENT on 02-16-2023 Color (U) Yellow Yellow [facility] Urine glucose detectionOrder ed By: HEALTH ASSESSMENT on 02-16-2023 Glucose Ql (U) Normal mg/dl Normal [facility] Urine leukocyte esterase det ection by dipstickOrdered By: HEALTH ASSESSMENT on 02-16-2023 Leukocyte esterase Test strip Ql (U) Negative Negative [facility] Urine pHOrdered By: HEALTH A SSESSMENT on 02-16-2023 pH (U) 5.0 [pH] 5.0 - 8.0 [facility] Urine specific gravity measu rementOrdered By: HEALTH ASSESSMENT on 02-16-2023 Specific gravity (U) [Rel density] 1.025 1.002-1.03 0 [facility] Urobilinogen Auto test strip Ql (U)Ordered By: HEALTH ASSESSMENT on 02-16-2023 Urobilinogen Ql (U) Normal mg/dl Normal [facility] CNPTOUTREACHon 01-01-2023 CNPTOUTREACH Normal [facility] Iron measurement (mass/mass) Ordered By: Asa Alba on 10-14-2022 Iron (Unsp spec) [Mass/Mass] 90 ug/dL 50-170 [facility] Laboratory - Chemistry and C hemistry - challengeOrdered By: Asa Alba on 10-14-2022 Cobalamin (Vitamin B12) [Mass/Vol] 486 pg/mL 211-911 [facility] No Panel InformationOrdered By: Asa Alba on 10-14-2022 Total Iron Binding Capacity 328 ug/dL 250-450 [facility] Serum or plasma ferritin jorge surement (mass/volume)Ordered By: Asa Alba on 10-14-2022 Ferritin [Mass/Vol] 43 ng/mL 8-252 [facility] Serum or plasma folate measu rement (mass/volume)Ordered By: Asa Alba on 10-14-2022 Folate [Mass/Vol] 8.90 ng/mL 3.1-55.4 [facility] CNPTOUTREACHon 10-07-2022 CNPTOUTREA Normal [facility] Iron measurement (mass/mass) Ordered By: Asa Alba on 08-28-2022 Iron (Unsp spec) [Mass/Mass] 47 ug/dL 50-170 [facility] Laboratory - Chemistry and C hemistry - challengeOrdered By: Asa Alba on 08-28-2022 Cobalamin (Vitamin B12) [Mass/Vol] 220 pg/mL 211-911 [facility] No Panel InformationOrdered By: Asa Alba on 08-28-2022 Total Iron Binding Capacity 285 ug/dL 250-450 [facility] Serum or plasma ferritin jorge surement (mass/volume)Ordered By: Asa Alba on 08-28-2022 Ferritin [Mass/Vol] 90 ng/mL 8-252 [facility] Serum or plasma folate measu rement (mass/volume)Ordered By: Asa Alba on 08-28-2022 Folate [Mass/Vol] 8.50 ng/mL 3.1-55.4 [facility] Absolute lymphocyte countOrd ered By: Vianey De La Garza on 08-20-2022 Lymphocytes Auto (Unsp spec) [#/Vol] 1.64 10*3/uL 0.83-4.51 [facility] Basophil percentageOrdered B y: Vianey De La Garza on 08-20-2022 Basophils/100 WBC (Bld) 1.0 % 0-1 [facility] Chloride [Moles/Vol] 107 mmol/L 98-107 [facility] Eosinophils/100 WBC (Bld) 4.1 % 0-5 [facility] Glucose [Mass/Vol] 104 mg/dL 74-106 [facility] Comment on above: Fasting Glucose resu lt from 100 to 125 mg/dL suggests IMPAIRED HOMEOSTASIS per A.D.A. criteria. Neutrophils (Bld) [#/Vol] 3.8 10*3/uL 2.0-7.7 [facility] Neutrophils/100 WBC (Bld) 61.8 % 47-70 [facility] Potassium [Moles/Vol] 3.7 mmol/L 3.5-5.1 [facility] Sodium [Moles/Vol] 142 mmol/L 136-145 [facility] WBC (Bld) [#/Vol] 6.1 10*3/uL 4.4-11.0 [facility] Blood erythrocytes count (nu mber/volume)Ordered By: Vianey De La Garza on 08-20-2022 RBC (Bld) [#/Vol] 3.89 10*6/uL 4.2-5.4 [facility] Blood hemoglobin measurement (mass/volume)Ordered By: Vianey De La Garza on 08-20-2022 Hemoglobin (Bld) [Mass/Vol] 10.5 g/dL 12.0-15.0 [facility] Blood lymphocytes/100 leukoc ytesOrdered By: Vianey De La Garza on 08-20-2022 Lymphocytes/100 WBC (Bld) 26.9 % 19-41 [facility] Blood monocytes/100 leukocyt esOrdered By: Vianey De La Garza on 08-20-2022 Monocytes/100 WBC (Bld) 5.9 % 0-10 [facility] Blood platelet mean volumeOr dered By: Vianey De La Garza on 08-20-2022 Platelet mean volume (Bld) [Entitic vol] 9.9 fL 6.2-12.0 [facility] Determination of erythrocyte mean corpuscular volume (MCV)Ordered By: Vianey De La Garza on 08-20-2022 MCV (RBC) [Entitic vol] 88.2 fL 81-99 [facility] Hematocrit Auto (Bld) [Volum e fraction]Ordered By: Vianey De La Garza on 08-20-2022 Hematocrit (Bld) [Volume fraction] 34.3 % 37-47 [facility] Laboratory - Chemistry and C hemistry - challengeOrdered By: Vianey De La Garza on 08-20-2022 CO2 [Moles/Vol] 28.0 mmol/L 21.0-32.0 [facility] Urea nitrogen/Creatinine [Mass ratio] 21.0 mg/mg 10-20 [facility] Laboratory - Hematology and Cell countsOrdered By: Vianey De La Garza on 08-20-2022 Erythrocyte distribution width (RBC) [Entitic vol] 40.1 fL 35.1-43.9 [facility] Erythrocyte distribution width (RBC) [Ratio] 12.6 % 11.6-14.6 [facility] Immature granulocytes/100 WBC (Bld) 0.300 % 0.0-0.9 [facility] Comment on above: IG% - Immature Granu locytes (promyelocytes, myelocytes and metamyelocytes) > 1% indicates that a LEFT SHIFT is Present. MCH (RBC) [Entitic mass] 27.0 pg 27.0-32.0 [facility] Nucleated RBC/100 WBC (Bld) [Ratio] 0 % 0-5 [facility] MCHC Auto (RBC) [Mass/Vol]Or dered By: Vianey De La Garza on 08-20-2022 MCHC (RBC) [Mass/Vol] 30.6 g/dL 32-36 [facility] No Panel InformationOrdered By: Vianey De La Garza on 08-20-2022 Estimated GFR (MDRD) Amer 107 mL/min >60 [facility] Comment on above: GFR Calc Estimated GFR (MDRD) Non-Af Amer 88 mL/min >60 [facility] Comment on above: Non- GFR Calc Platelets bldOrdered By: Jackson De La Garza on 08-20-2022 Platelets (Bld) [#/Vol] 482 10*3/uL 150-450 [facility] Serum or plasma calcium jose urement (mass/volume)Ordered By: Vianey De La Garza on 08-20-2022 Calcium [Mass/Vol] 10.0 mg/dL 8.5-10.1 [facility] Serum or plasma creatinine m easurement (mass/volume)Ordered By: Vianey De La Garza on 08-20-2022 Creatinine [Mass/Vol] 0.71 mg/dL 0.55-1.02 [facility] Comment on above: The validity of the calculated GFR & GFRAA in patients over 70 years has not been determined. Clinical correlation is essential. Serum or plasma urea nitroge n measurement (mass/volume)Ordered By: Vianey De La Garza on 08-20-2022 Urea nitrogen [Mass/Vol] 15 mg/dL 7-18 [facility] Thin prep Papanicolaou smear with manual screeningOrdered By: Vianey De La Garza on 08-20-2022 Thin prep Papanicolaou smear with manual screening 7 - [facility] Absolute lymphocyte countOrd ered By: Nathan Hastings on 08-04-2022 Lymphocytes Auto (Unsp spec) [#/Vol] 1.69 10*3/uL 0.83-4.51 [facility] Basophil percentageOrdered B y: Nathan Hastings on 08-04-2022 Basophils/100 WBC (Bld) 0.5 % 0-1 [facility] Bilirubin [Mass/Vol] 0.50 mg/dL 0.20-1.00 [facility] Comment on above: For patients on eltr ombopag therapy, use of Dimension [place] TBIL is not recommended. Chloride [Moles/Vol] 107 mmol/L 98-107 [facility] Eosinophils/100 WBC (Bld) 2.1 % 0-5 [facility] Glucose [Mass/Vol] 112 mg/dL 74-106 [facility] Comment on above: Fasting Glucose resu lt from 100 to 125 mg/dL suggests IMPAIRED HOMEOSTASIS per A.D.A. criteria. Neutrophils (Bld) [#/Vol] 8.2 10*3/uL 2.0-7.7 [facility] Neutrophils/100 WBC (Bld) 75.4 % 47-70 [facility] Potassium [Moles/Vol] 3.6 mmol/L 3.5-5.1 [facility] Protein [Mass/Vol] 8.1 g/dL 6.4-8.2 [facility] Sodium [Moles/Vol] 142 mmol/L 136-145 [facility] WBC (Bld) [#/Vol] 10.9 10*3/uL 4.4-11.0 [facility] Blood erythrocytes count (nu mber/volume)Ordered By: Nathan Hastings on 08-04-2022 RBC (Bld) [#/Vol] 3.80 10*6/uL 4.2-5.4 [facility] Blood hemoglobin measurement (mass/volume)Ordered By: Nathan Hastings on 08-04-2022 Hemoglobin (Bld) [Mass/Vol] 10.6 g/dL 12.0-15.0 [facility] Blood lymphocytes/100 leukoc ytesOrdered By: Nathan Hastings on 08-04-2022 Lymphocytes/100 WBC (Bld) 15.5 % 19-41 [facility] Blood monocytes/100 leukocyt esOrdered By: Nathan Hastings on 08-04-2022 Monocytes/100 WBC (Bld) 6.1 % 0-10 [facility] Blood platelet mean volumeOr dered By: Nathan Hastings on 08-04-2022 Platelet mean volume (Bld) [Entitic vol] 10.4 fL 6.2-12.0 [facility] Determination of erythrocyte mean corpuscular volume (MCV)Ordered By: Nathan Hastings on 08-04-2022 MCV (RBC) [Entitic vol] 90.5 fL 81-99 [facility] Hematocrit Auto (Bld) [Volum e fraction]Ordered By: Nathan Hastings on 08-04-2022 Hematocrit (Bld) [Volume fraction] 34.4 % 37-47 [facility] Laboratory - Chemistry and C hemistry - challengeOrdered By: Nathan Hastings on 08-04-2022 ALP [Catalytic activity/Vol] 104 U/L 45-117 [facility] ALT [Catalytic activity/Vol] 32 U/L 13-56 [facility] CO2 [Moles/Vol] 28.0 mmol/L 21.0-32.0 [facility] Globulin (S) [Mass/Vol] 5.1 g/dL 2.2-4.2 [facility] Urea nitrogen/Creatinine [Mass ratio] 26.3 mg/mg 10-20 [facility] Laboratory - Hematology and Cell countsOrdered By: Nathan Hastings on 08-04-2022 Erythrocyte distribution width (RBC) [Entitic vol] 39.4 fL 35.1-43.9 [facility] Erythrocyte distribution width (RBC) [Ratio] 11.9 % 11.6-14.6 [facility] Immature granulocytes/100 WBC (Bld) 0.400 % 0.0-0.9 [facility] Comment on above: IG% - Immature Granu locytes (promyelocytes, myelocytes and metamyelocytes) > 1% indicates that a LEFT SHIFT is Present. MCH (RBC) [Entitic mass] 27.9 pg 27.0-32.0 [facility] Nucleated RBC/100 WBC (Bld) [Ratio] 0 % 0-5 [facility] MCHC Auto (RBC) [Mass/Vol]Or dered By: Nathan Hastings on 08-04-2022 MCHC (RBC) [Mass/Vol] 30.8 g/dL 32-36 [facility] No Panel InformationOrdered By: Nathan Hastings on 08-04-2022 Estimated GFR (MDRD) Amer 120 mL/min >60 [facility] Comment on above: GFR Calc Estimated GFR (MDRD) Non-Af Amer 99 mL/min >60 [facility] Comment on above: Non- GFR Calc Platelets bldOrdered By: Marlon Hastings on 08-04-2022 Platelets (Bld) [#/Vol] 668 10*3/uL 150-450 [facility] Serum or plasma albumin jose urement (mass/volume)Ordered By: Nathan Hastings on 08-04-2022 Albumin [Mass/Vol] 3.0 g/dL 3.2-5.0 [facility] Serum or plasma albumin/glob ulin mass ratioOrdered By: Nathan Hastings on 08-04-2022 Albumin/Globulin [Mass ratio] 0.6 {ratio} 0.9-2.4 [facility] Serum or plasma calcium jose urement (mass/volume)Ordered By: Nathan Hastings on 08-04-2022 Calcium [Mass/Vol] 10.5 mg/dL 8.5-10.1 [facility] Serum or plasma creatinine m easurement (mass/volume)Ordered By: Nathan Hastings on 08-04-2022 Creatinine [Mass/Vol] 0.65 mg/dL 0.55-1.02 [facility] Comment on above: The validity of the calculated GFR & GFRAA in patients over 70 years has not been determined. Clinical correlation is essential. Serum or plasma urea nitroge n measurement (mass/volume)Ordered By: Nathan Hastings on 08-04-2022 Urea nitrogen [Mass/Vol] 17 mg/dL 7-18 [facility] Thin prep Papanicolaou smear with manual screeningOrdered By: Nathan Hastings on 08-04-2022 Thin prep Papanicolaou smear with manual screening 17 U/L [facility] Thin prep Papanicolaou smear with manual screening 7 5-15 [facility] CNPTOUTREACHon 07-08-2022 CNPTOUTREACH Normal [facility] CBC panel Auto (Bld)on 07-07 Erythrocyte distribution width (RBC) [Ratio] 11.9 % Normal 11.5-15.0 [facility] Comment on above: Order Comment: Speci men Type: BLOOD SPECIMENOrdering Facility: [facility] Address: [address] [place] [address] Performed By: #### 5 8410-2 ####[facility] [id number] [place] [address] [place] Hematocrit (Bld) [Volume fraction] 34.1 % Low 36.0-46.0 [facility] Comment on above: Order Comment: Speci men Type: BLOOD SPECIMENOrdering Facility: [facility] Address: [address] [place] [address] Performed By: #### 5 8410-2 ####[facility] [id number] [place] [address] [place] Hemoglobin (Bld) [Mass/Vol] 11.0 g/dL Low 11.5-15.5 [facility] Comment on above: Order Comment: Speci men Type: BLOOD SPECIMENOrdering Facility: [facility] Address: [address] [place] [address] Performed By: #### 5 8410-2 ####[facility] [id number] [place] [address] [place] MCH (RBC) [Entitic mass] 30.1 pg Normal 26.0-34.0 [facility] Comment on above: Order Comment: Speci men Type: BLOOD SPECIMENOrdering Facility: [facility] Address: [address] [place] [address] Performed By: #### 5 8410-2 ####[facility] [id number] [address] [place] [facility] MCHC (RBC) [Mass/Vol] 32.3 g/dL Normal 30.5-36.0 [facility] Comment on above: Order Comment: Speci men Type: BLOOD SPECIMENOrdering Facility: [facility] Address: [address] [place] [address] Performed By: #### 5 8410-2 ####[facility] [id number] [address] [place] MCV (RBC) [Entitic vol] 93.2 fL Normal 80.0-100.0 [facility] Comment on above: Order Comment: Speci men Type: BLOOD SPECIMENOrdering Facility: [facility] Address: [address] [place] [address] Performed By: #### 5 8410-2 ####[facility] [id number] [place] [address] [place] Nucleated RBC (Bld) [#/Vol] 10*3/uL Normal <0.01 [facility] Comment on above: Order Comment: Speci men Type: BLOOD SPECIMENOrdering Facility: [facility] Address: [address] [place] [address] Performed By: #### 5 8410-2 ####[facility] [id number] [address] [place] Platelet mean volume (Bld) [Entitic vol] 9.7 fL Normal 9.0-12.7 [facility] Comment on above: Order Comment: Speci men Type: BLOOD SPECIMENOrdering Facility: [facility] Address: [address] [place], [place] [id number] Performed By: #### 5 8410-2 ####[facility] [id number] [place] [address] [place] Platelets (Bld) [#/Vol] 533 10*3/uL High 150-400 [facility] Comment on above: Order Comment: Speci men Type: BLOOD SPECIMENOrdering Facility: [facility] Address: [address] Performed By: #### 5 8410-2 ####[facility] [id number] [place] [address] [place] RBC (Bld) [#/Vol] 3.66 10*6/uL Low 3.90-5.20 [facility] Comment on above: Order Comment: Speci men Type: BLOOD SPECIMENOrdering Facility: [facility] Address: [address] Performed By: #### 5 8410-2 ####[facility] [id number] [place] [address] [place] WBC (Bld) [#/Vol] 8.65 10*3/uL Normal 3.70-11.00 [facility] Comment on above: Order Comment: Speci men Type: BLOOD SPECIMENOrdering Facility: [facility] Address: [address] [place], [place] [id number] Performed By: #### 5 8410-2 ####[facility] [id number] [place] [address] [place] CNOVon 07-07-2022 CNOV Normal [facility] Comprehensive metabolic 2000 panelon 07-07-2022 Albumin [Mass/Vol] 4.1 g/dL Normal 3.9-4.9 [facility] Comment on above: Order Comment: Speci men Type: BLOOD SPECIMENOrdering Facility: [facility] Address: [address] Performed By: #### 2 4323-8 ####[facility] [id number] [place] [address] [place] ALP [Catalytic activity/Vol] 86 U/L Normal 34-123 [facility] Comment on above: Order Comment: Speci men Type: BLOOD SPECIMENOrdering Facility: [facility] Address: [address] Performed By: #### 2 4323-8 ####[facility] [id number] [place] [address] [place] ALT [Catalytic activity/Vol] 28 U/L Normal 7-38 [facility] Comment on above: Order Comment: Speci men Type: BLOOD SPECIMENOrdering Facility: [facility] Address: [address] Performed By: #### 2 4323-8 ####[facility] [id number] [place] [address] [place] Anion gap [Moles/Vol] 11 mmol/L Normal 9-18 [facility] Comment on above: Order Comment: Speci men Type: BLOOD SPECIMENOrdering Facility: [facility] Address: [address] [place] [address] Performed By: #### 2 4323-8 ####[facility] [id number] [place] [address] [place] AST [Catalytic activity/Vol] 21 U/L Normal 13-35 [facility] Comment on above: Order Comment: Speci men Type: BLOOD SPECIMENOrdering Facility: [facility] Address: [address] Performed By: #### 2 4323-8 ####[facility] [id number] [place] [address] [place] Bilirubin [Mass/Vol] 0.5 mg/dL Normal 0.2-1.3 [facility] Comment on above: Order Comment: Speci men Type: BLOOD SPECIMENOrdering Facility: [facility] Address: [address] [place] [address] Performed By: #### 2 4323-8 ####[facility] [id number] [place] [address] [place] Calcium [Mass/Vol] 10.7 mg/dL High 8.5-10.2 [facility] Comment on above: Order Comment: Speci men Type: BLOOD SPECIMENOrdering Facility: [facility] Address: [address] [place] [address] Performed By: #### 2 4323-8 ####[facility] [id number] [place] [address] [place] Chloride [Moles/Vol] 105 mmol/L Normal 97-105 [facility] Comment on above: Order Comment: Speci men Type: BLOOD SPECIMENOrdering Facility: [facility] Address: [address] [place], [place] [address] Performed By: #### 2 4323-8 ####[facility] [id number] [place] [address] [place] CO2 [Moles/Vol] 24 mmol/L Normal 22-30 [facility] Comment on above: Order Comment: Speci men Type: BLOOD SPECIMENOrdering Facility: [facility] Address: [address] [place], [place] [address] Performed By: #### 2 4323-8 ####[facility] [id number] [place] [address] [place] Creatinine [Mass/Vol] 0.68 mg/dL Normal 0.58-0.96 [facility] Comment on above: Order Comment: Garrett michelle Type: BLOOD SPECIMENOrdering Facility: [facility] Address: [address] [place] [place] [id number] Performed By: #### 2 4323-8 ####[facility] [id number] [place] [address] [place] ESTIMATED GLOMERULAR FILTRATION RATE 100 mL/min/1.73m??? Normal >=60 [facility] Comment on above: Order Comment: Garrett men Type: BLOOD SPECIMENOrdering Facility: [facility] Address: [address] [place] [place] [address] Result Comment: Lola mated Glomerular Filtration Rate (eGFR) is calculated using the 2020 CKD-EPI creatinine equation. This equation utilizes serum creatinine, sex, and age as parameters. The creatinine assay has traceable calibration to isotope dilution-mass spectrometry. Refer to KDIGO guidelines for clinical interpretation. In patients with unstable renal function, e.g. those with acute kidney injury, the eGFR may not accurately reflect actual GFR. Performed By: #### 2 4323-8 ####[facility] [id number] [place] [address] [place] Glucose [Mass/Vol] 91 mg/dL Normal 74-99 [facility] Comment on above: Order Comment: Garrett michelle Type: BLOOD SPECIMENOrdering Facility: [facility] Address: [address] [place] [place] [address] Result Comment: The [place] [employer] (ADA) provides guidance for cutoff values for fasting glucose and random glucose. The ADA defines fasting as no caloric intake for at least 8 hours. Fasting plasma glucose results between 100 to 125 mg/dL indicate increased risk for diabetes (prediabetes).Fasting plasma glucose results greater than or equal to 126 mg/dL meet the criteria for diagnosis of diabetes. In the absence of unequivocal hyperglycemia, results should be confirmed by repeat testing. In a patient with classic symptoms of hyperglycemia or hyperglycemic crisis, random plasma glucose results greater than or equal to 200 mg/dL meet the criteria for diagnosis of diabetes.Reference: Standards of Medical Care in Diabetes 2016, [place] [employer]. Diabetes Care. 2016.39(Suppl 1). Performed By: #### 2 4323-8 ####[facility] [id number] [place] [address] [place] Potassium [Moles/Vol] 5.2 mmol/L High 3.7-5.1 [facility] Comment on above: Order Comment: Speci men Type: BLOOD SPECIMENOrdering Facility: [facility] Address: [address] Performed By: #### 2 4323-8 ####[facility] [id number] [place] [address] [place] Protein [Mass/Vol] 7.2 g/dL Normal 6.3-8.0 [facility] Comment on above: Order Comment: Speci men Type: BLOOD SPECIMENOrdering Facility: [facility] Address: [address] [place] [address] Performed By: #### 2 4323-8 ####[facility] [id number] [place] [address] [place] Sodium [Moles/Vol] 140 mmol/L Normal 136-144 [facility] Comment on above: Order Comment: Speci men Type: BLOOD SPECIMENOrdering Facility: [facility] Address: [address] [place], [place] [id number] Performed By: #### 2 4323-8 ####[facility] [id number] [place] [address] [place] Urea nitrogen [Mass/Vol] 17 mg/dL Normal 7-21 [facility] Comment on above: Order Comment: Speci men Type: BLOOD SPECIMENOrdering Facility: [facility] Address: [address] [place] [address] Performed By: #### 2 4323-8 ####[facility] [id number] [place] [address] [place] ECG COMPLETEon 12-20-2022 ECG COMPLETE Normal [facility] XR CHEST 2V FRONTAL/LATon XR CHEST 2V FRONTAL/LAT Normal [facility] CNPNon 07-01-2022 CNPN Normal [facility] CNPTOUTREACHon 07-01-2022 CNPTOUTREACH Normal [facility] ALLIED HEALTHon 06-30-2022 ALLIED HEALTH Normal [facility] CBC panel Auto (Bld)on 06-30 Erythrocyte distribution width (RBC) [Ratio] 12.2 % Normal 11.5-15.0 [facility] Comment on above: Order Comment: Speci men Type: BLOOD SPECIMENOrdering Facility: [facility] Address: [address] [place] [address] Performed By: #### 5 8410-2 ####[facility] [id number] [place] [address] [place] Hematocrit (Bld) [Volume fraction] 27.9 % Low 36.0-46.0 [facility] Comment on above: Order Comment: Speci men Type: BLOOD SPECIMENOrdering Facility: [facility] Address: [address] [place] [address] Performed By: #### 5 8410-2 ####[facility] [id number] [place] [address] [place] Hemoglobin (Bld) [Mass/Vol] 9.4 g/dL Low 11.5-15.5 [facility] Comment on above: Order Comment: Speci men Type: BLOOD SPECIMENOrdering Facility: [facility] Address: [address] [place] [address] Performed By: #### 5 8410-2 ####[facility] [id number] [place] [address] [place] MCH (RBC) [Entitic mass] 30.7 pg Normal 26.0-34.0 [facility] Comment on above: Order Comment: Speci men Type: BLOOD SPECIMENOrdering Facility: [facility] Address: [address] Performed By: #### 5 8410-2 ####[facility] [id number] [address] [place] [facility] MCHC (RBC) [Mass/Vol] 33.7 g/dL Normal 30.5-36.0 [facility] Comment on above: Order Comment: Speci men Type: BLOOD SPECIMENOrdering Facility: [facility] Address: [address] Performed By: #### 5 8410-2 ####[facility] [id number] [place] [address] [place] MCV (RBC) [Entitic vol] 91.2 fL Normal 80.0-100.0 [facility] Comment on above: Order Comment: Speci men Type: BLOOD SPECIMENOrdering Facility: [facility] Address: [address] Performed By: #### 5 8410-2 ####[facility] [id number] [place] [address] [place] Nucleated RBC (Bld) [#/Vol] 10*3/uL Normal <0.01 [facility] Comment on above: Order Comment: Speci men Type: BLOOD SPECIMENOrdering Facility: [facility] Address: [address] Performed By: #### 5 8410-2 ####[facility] [id number] [place] [address] [place] Platelet mean volume (Bld) [Entitic vol] 10.2 fL Normal 9.0-12.7 [facility] Comment on above: Order Comment: Speci men Type: BLOOD SPECIMENOrdering Facility: [facility] Address: [address] [place], [place] [address] Performed By: #### 5 8410-2 ####[facility] [id number] [place] [address] [place] Platelets (Bld) [#/Vol] 186 10*3/uL Normal 150-400 [facility] Comment on above: Order Comment: Speci men Type: BLOOD SPECIMENOrdering Facility: [facility] Address: [address] [place] [address] Performed By: #### 5 8410-2 ####[facility] [id number] [place] [address] [place] RBC (Bld) [#/Vol] 3.06 10*6/uL Low 3.90-5.20 [facility] Comment on above: Order Comment: Speci men Type: BLOOD SPECIMENOrdering Facility: [facility] Address: [address] [place] [address] Performed By: #### 5 8410-2 ####[facility] [id number] [place] [address] [place] WBC (Bld) [#/Vol] 6.84 10*3/uL Normal 3.70-11.00 [facility] Comment on above: Order Comment: Speci men Type: BLOOD SPECIMENOrdering Facility: [facility] Address: [address] [place] [address] Performed By: #### 5 8410-2 ####[facility] [id number] [place] [address] [place] CNPTOUTREACHon 06-30-2022 CNPTOUTREACH Normal [facility] Comprehensive metabolic 2000 panelon 06-30-2022 Albumin [Mass/Vol] 3.2 g/dL Low 3.9-4.9 [facility] Comment on above: Order Comment: Speci men Type: BLOOD SPECIMENOrdering Facility: [facility] Address: [address] [place], [place] [address] Performed By: #### 2 4322-8, ####[facility] [id number] [place] [address] [place] ALP [Catalytic activity/Vol] 57 U/L Normal 34-123 [facility] Comment on above: Order Comment: Speci men Type: BLOOD SPECIMENOrdering Facility: [facility] Address: [address] [place] [address] Performed By: #### 2 8, ####[facility] [id number] [place] [address] [place] ALT [Catalytic activity/Vol] 13 U/L Normal 7-38 [facility] Comment on above: Order Comment: Speci men Type: BLOOD SPECIMENOrdering Facility: [facility] Address: [address] [place] [address] Performed By: #### 2 4323-02, ####[facility] [id number] [place] [address] [place] Anion gap [Moles/Vol] 9 mmol/L Normal 9-18 [facility] Comment on above: Order Comment: Speci men Type: BLOOD SPECIMENOrdering Facility: [facility] Address: [address] [place] [address] Performed By: #### 2 4323-02, ####[facility] [id number] [place] [address] [place] AST [Catalytic activity/Vol] 15 U/L Normal 13-35 [facility] Comment on above: Order Comment: Speci men Type: BLOOD SPECIMENOrdering Facility: [facility] Address: [address] [place] [address] Performed By: #### 2 8, ####[facility] [id number] [place] [address] [place] Bilirubin [Mass/Vol] 0.8 mg/dL Normal 0.2-1.3 [facility] Comment on above: Order Comment: Speci men Type: BLOOD SPECIMENOrdering Facility: [facility] Address: [address] [place] [address] Performed By: #### 2 4328, ####[facility] [id number] [place] [address] [place] Calcium [Mass/Vol] 9.4 mg/dL Normal 8.5-10.2 [facility] Comment on above: Order Comment: Speci men Type: BLOOD SPECIMENOrdering Facility: [facility] Address: [address] [place] [address] Performed By: #### 2 4323-02, ####[facility] [id number] [place] [address] [place] Chloride [Moles/Vol] 105 mmol/L Normal 97-105 [facility] Comment on above: Order Comment: Speci men Type: BLOOD SPECIMENOrdering Facility: [facility] Address: [address] [place] [address] Performed By: #### 2 4323-02, ####[facility] [id number] [place] [address] [place] CO2 [Moles/Vol] 25 mmol/L Normal 22-30 [facility] Comment on above: Order Comment: Speci men Type: BLOOD SPECIMENOrdering Facility: [facility] Address: [address] [place] [id number] Performed By: #### 2 4323-02, ####[facility] [id number] [place] [id number] [place] Creatinine [Mass/Vol] 0.55 mg/dL Low 0.58-0.96 [facility] Comment on above: Order Comment: Speci men Type: BLOOD SPECIMENOrdering Facility: [facility] Address: [address] [place] [address] Performed By: #### 2 4323-8, ####[facility] [id number] [place] [address] [place] ESTIMATED GLOMERULAR FILTRATION RATE 105 mL/min/1.73m??? Normal >=60 [facility] Comment on above: Order Comment: Garrett michelle Type: BLOOD SPECIMENOrdering Facility: [facility] Address: [address] [place] [address] Result Comment: Lola mated Glomerular Filtration Rate (eGFR) is calculated using the 2020 CKD-EPI creatinine equation. This equation utilizes serum creatinine, sex, and age as parameters. The creatinine assay has traceable calibration to isotope dilution-mass spectrometry. Refer to KDIGO guidelines for clinical interpretation. In patients with unstable renal function, e.g. those with acute kidney injury, the eGFR may not accurately reflect actual GFR. Performed By: #### 2 4323-8, ####[facility] [id number] [place] [address] [place] Glucose [Mass/Vol] 92 mg/dL Normal 74-99 [facility] Comment on above: Order Comment: Garrett michelle Type: BLOOD SPECIMENOrdering Facility: [facility] Address: [address] [place] [address] Result Comment: The [place] [employer] (ADA) provides guidance for cutoff values for fasting glucose and random glucose. The ADA defines fasting as no caloric intake for at least 8 hours. Fasting plasma glucose results between 100 to 125 mg/dL indicate increased risk for diabetes (prediabetes).Fasting plasma glucose results greater than or equal to 126 mg/dL meet the criteria for diagnosis of diabetes. In the absence of unequivocal hyperglycemia, results should be confirmed by repeat testing. In a patient with classic symptoms of hyperglycemia or hyperglycemic crisis, random plasma glucose results greater than or equal to 200 mg/dL meet the criteria for diagnosis of diabetes.Reference: Standards of Medical Care in Diabetes 2016, [place] [employer]. Diabetes Care. 2016.39(Suppl 1). Performed By: #### 2 8, ####[facility] [id number] [place] [address] [place] Potassium [Moles/Vol] 4.1 mmol/L Normal 3.7-5.1 [facility] Comment on above: Order Comment: Speci men Type: BLOOD SPECIMENOrdering Facility: [facility] Address: [address] [place] [address] Performed By: #### 2 4323-02, ####[facility] [id number] [place] [address] [place] Protein [Mass/Vol] 5.7 g/dL Low 6.3-8.0 [facility] Comment on above: Order Comment: Speci men Type: BLOOD SPECIMENOrdering Facility: [facility] Address: [address] [place] [address] Performed By: #### 2 4323-02, ####[facility] [id number] [place] [address] [place] Sodium [Moles/Vol] 139 mmol/L Normal 136-144 [facility] Comment on above: Order Comment: Speci men Type: BLOOD SPECIMENOrdering Facility: [facility] Address: [address] Performed By: #### 2 4323-02, ####[facility] [id number] [place] [address] [place] Urea nitrogen [Mass/Vol] 9 mg/dL Normal 7-21 [facility] Comment on above: Order Comment: Speci men Type: BLOOD SPECIMENOrdering Facility: [facility] Address: [address] Performed By: #### 2 43209-23, ####[facility] [id number] [place] [id number] [place] ECG COMPLETEon 06-30-2022 ECG COMPLETE Normal [facility] Magnesium SerPl-mCncon 06-30 Magnesium [Mass/Vol] 2.1 mg/dL Normal 1.7-2.3 [facility] Comment on above: Order Comment: Speci men Type: BLOOD SPECIMENOrdering Facility: [facility] Address: [address] [place] [address] Performed By: #### 2 4323-8, 67180-2 ####[facility] [id number] [place] [address] [place] ALLIED HEALTHon 06-29-2022 ALLIED HEALTH Normal [facility] CASE MGT INIT ASSESon 2021 CASE MGT INIT ASSES Normal [facility] CBC panel Auto (Bld)on 06-29 Erythrocyte distribution width (RBC) [Ratio] 12.5 % Normal 11.5-15.0 [facility] Comment on above: Order Comment: Speci men Type: BLOOD SPECIMENOrdering Facility: [facility] Address: [address] [place] [address] Performed By: #### 5 8410-2 ####[facility] [id number] [place] [address] [place] Hematocrit (Bld) [Volume fraction] 27.2 % Low 36.0-46.0 [facility] Comment on above: Order Comment: Speci men Type: BLOOD SPECIMENOrdering Facility: [facility] Address: [address] [place], [place] [address] Performed By: #### 5 8410-2 ####[facility] [id number] [place] [address] [place] Hemoglobin (Bld) [Mass/Vol] 9.2 g/dL Low 11.5-15.5 [facility] Comment on above: Order Comment: Speci men Type: BLOOD SPECIMENOrdering Facility: [facility] Address: [address] Performed By: #### 5 8410-2 ####[facility] [id number] [address] MCH (RBC) [Entitic mass] 31.0 pg Normal 26.0-34.0 [facility] Comment on above: Order Comment: Speci men Type: BLOOD SPECIMENOrdering Facility: [facility] Address: [address] Performed By: #### 5 8410-2 ####[facility] [id number] [address] [place] MCHC (RBC) [Mass/Vol] 33.8 g/dL Normal 30.5-36.0 [facility] Comment on above: Order Comment: Speci men Type: BLOOD SPECIMENOrdering Facility: [facility] Address: [address] [place] [address] Performed By: #### 5 8410-2 ####[facility] [id number] [address] [place] MCV (RBC) [Entitic vol] 91.6 fL Normal 80.0-100.0 [facility] Comment on above: Order Comment: Speci men Type: BLOOD SPECIMENOrdering Facility: [facility] Address: [address] [place] [address] Performed By: #### 5 8410-2 ####[facility] [id number] [address] [place] [facility] Nucleated RBC (Bld) [#/Vol] 10*3/uL Normal <0.01 [facility] Comment on above: Order Comment: Speci men Type: BLOOD SPECIMENOrdering Facility: [facility] Address: [address] [place] [address] Performed By: #### 5 8410-2 ####[facility] [id number] [place] [address] [place] Platelet mean volume (Bld) [Entitic vol] 11.0 fL Normal 9.0-12.7 [facility] Comment on above: Order Comment: Speci men Type: BLOOD SPECIMENOrdering Facility: [facility] Address: [address] [place] [address] Performed By: #### 5 8410-2 ####[facility] [id number] [place] [address] [place] Platelets (Bld) [#/Vol] 135 10*3/uL Low 150-400 [facility] Comment on above: Order Comment: Speci men Type: BLOOD SPECIMENOrdering Facility: [facility] Address: [address] [place] [address] Result Comment: Resu lts checked and verified.No clot detected. Performed By: #### 5 8410-2 ####[facility] [id number] [place] [address] [place] RBC (Bld) [#/Vol] 2.97 10*6/uL Low 3.90-5.20 [facility] Comment on above: Order Comment: Speci men Type: BLOOD SPECIMENOrdering Facility: [facility] Address: [address] [place] [address] Performed By: #### 5 8410-2 ####[facility] [id number] [place] [address] [place] WBC (Bld) [#/Vol] 10.46 10*3/uL Normal 3.70-11.00 [facility] Comment on above: Order Comment: Speci men Type: BLOOD SPECIMENOrdering Facility: [facility] Address: [address] [place] [address] Performed By: #### 5 8410-2 ####[facility] [id number] [place] [address] [place] CNDSon 06-29-2022 CNDS Normal [facility] Comprehensive metabolic 2000 panelon 06-29-2022 Albumin [Mass/Vol] 3.6 g/dL Low 3.9-4.9 [facility] Comment on above: Order Comment: Speci men Type: BLOOD SPECIMENOrdering Facility: [facility] Address: [address] [place] [address] Performed By: #### 2 4323-8 ####[facility] [id number] [place] [address] [place] ALP [Catalytic activity/Vol] 63 U/L Normal 34-123 [facility] Comment on above: Order Comment: Speci men Type: BLOOD SPECIMENOrdering Facility: [facility] Address: [address] [place] [address] Performed By: #### 2 4323-8 ####[facility] [id number] [place] [address] [place] ALT [Catalytic activity/Vol] 15 U/L Normal 7-38 [facility] Comment on above: Order Comment: Speci men Type: BLOOD SPECIMENOrdering Facility: [facility] Address: [address] [place] [address] Performed By: #### 2 4323-8 ####[facility] [id number] [place] [address] [place] Anion gap [Moles/Vol] 10 mmol/L Normal 9-18 [facility] Comment on above: Order Comment: Speci men Type: BLOOD SPECIMENOrdering Facility: [facility] Address: [address] [place] [id number] Performed By: #### 2 4323-8 ####[facility] [id number] [place] [address] [place] AST [Catalytic activity/Vol] 21 U/L Normal 13-35 [facility] Comment on above: Order Comment: Speci men Type: BLOOD SPECIMENOrdering Facility: [facility] Address: [address] Performed By: #### 2 4323-8 ####[facility] [id number] [place] [address] [place] Bilirubin [Mass/Vol] 1.0 mg/dL Normal 0.2-1.3 [facility] Comment on above: Order Comment: Speci men Type: BLOOD SPECIMENOrdering Facility: [facility] Address: [address] Performed By: #### 2 4323-8 ####[facility] [id number] [place] [address] [place] Calcium [Mass/Vol] 9.4 mg/dL Normal 8.5-10.2 [facility] Comment on above: Order Comment: Speci men Type: BLOOD SPECIMENOrdering Facility: [facility] Address: [address] Performed By: #### 2 4323-8 ####[facility] [id number] [place] [address] [place] Chloride [Moles/Vol] 105 mmol/L Normal 97-105 [facility] Comment on above: Order Comment: Speci men Type: BLOOD SPECIMENOrdering Facility: [facility] Address: [address] Performed By: #### 2 4323-8 ####[facility] [id number] [place] [address] [place] CO2 [Moles/Vol] 25 mmol/L Normal 22-30 [facility] Comment on above: Order Comment: Speci men Type: BLOOD SPECIMENOrdering Facility: [facility] Address: [address] Performed By: #### 2 4323-8 ####[facility] [id number] [address] STATES OF [facility] Creatinine [Mass/Vol] 0.59 mg/dL Normal 0.58-0.96 [facility] Comment on above: Order Comment: Speckarla michelle Type: BLOOD SPECIMENOrdering Facility: [facility] Address: [address] [place] [address] Performed By: #### 2 4323-8 ####[facility] [id number] [address] OF [facility] ESTIMATED GLOMERULAR FILTRATION RATE 103 mL/min/1.73m??? Normal >=60 [facility] Comment on above: Order Comment: Garrett men Type: BLOOD SPECIMENOrdering Facility: [facility] Address: [address] [place] [address] Result Comment: Lola mated Glomerular Filtration Rate (eGFR) is calculated using the 2020 CKD-EPI creatinine equation. This equation utilizes serum creatinine, sex, and age as parameters. The creatinine assay has traceable calibration to isotope dilution-mass spectrometry. Refer to KDIGO guidelines for clinical interpretation. In patients with unstable renal function, e.g. those with acute kidney injury, the eGFR may not accurately reflect actual GFR. Performed By: #### 2 4323-8 ####[facility] [id number] [place] [address] [place] Glucose [Mass/Vol] 85 mg/dL Normal 74-99 [facility] Comment on above: Order Comment: Speci men Type: BLOOD SPECIMENOrdering Facility: [facility] Address: [address] [place] [address] Result Comment: The [place] Diabetes [employer] (ADA) provides guidance for cutoff values for fasting glucose and random glucose. The ADA defines fasting as no caloric intake for at least 8 hours. Fasting plasma glucose results between 100 to 125 mg/dL indicate increased risk for diabetes (prediabetes).Fasting plasma glucose results greater than or equal to 126 mg/dL meet the criteria for diagnosis of diabetes. In the absence of unequivocal hyperglycemia, results should be confirmed by repeat testing. In a patient with classic symptoms of hyperglycemia or hyperglycemic crisis, random plasma glucose results greater than or equal to 200 mg/dL meet the criteria for diagnosis of diabetes.Reference: Standards of Medical Care in Diabetes 2016, [place] [employer]. Diabetes Care. 2016.39(Suppl 1). Performed By: #### 2 4323-8 ####[facility] [id number] [place] [address] [place] Potassium [Moles/Vol] 3.7 mmol/L Normal 3.7-5.1 [facility] Comment on above: Order Comment: Speci men Type: BLOOD SPECIMENOrdering Facility: [facility] Address: [address] [place] [address] Performed By: #### 2 4323-8 ####[facility] [id number] [place] [address] [place] Protein [Mass/Vol] 6.0 g/dL Low 6.3-8.0 [facility] Comment on above: Order Comment: Speci men Type: BLOOD SPECIMENOrdering Facility: [facility] Address: [address] [place] [address] Performed By: #### 2 4323-8 ####[facility] [id number] [place] [address] [place] Sodium [Moles/Vol] 140 mmol/L Normal 136-144 [facility] Comment on above: Order Comment: Speci men Type: BLOOD SPECIMENOrdering Facility: [facility] Address: [address] Performed By: #### 2 4323-8 ####[facility] [id number] [place] [address] [place] Urea nitrogen [Mass/Vol] 12 mg/dL Normal 7-21 [facility] Comment on above: Order Comment: Speci men Type: BLOOD SPECIMENOrdering Facility: [facility] Address: [address] Performed By: #### 2 4323-8 ####[facility] [id number] [place] [address] [place] ECG COMPLETEon 06-29-2022 ECG COMPLETE Normal [facility] POTASSIUM BLDon 06-29-2022 Potassium [Moles/Vol] 3.9 mmol/L Normal 3.7-5.1 [facility] Comment on above: Order Comment: Speci men Type: BLOOD SPECIMENOrdering Facility: [facility] Address: [address] [place] [address] Performed By: #### K 1 ####[facility] [id number] [place] [address] [place] XR CHEST 2V FRONTAL/LATon XR CHEST 2V FRONTAL/LAT Normal [facility] ARTERIAL BLOOD GASESon 06-28 Base deficit (BldA) [Moles/Vol] -1 mmol/L Normal -2-0 [facility] Comment on above: Order Comment: Speci men Type: ARTERIAL BLOOD SPECIMENOrdering Facility: [facility] Address: [address] [place] [address] Performed By: #### A LLBG ####[facility] [id number] [place] [address] [place] Body temperature 98.6 [degF] Normal [facility] Comment on above: Order Comment: Speci men Type: ARTERIAL BLOOD SPECIMENOrdering Facility: [facility] Address: [address] [place], [place] [id number] Performed By: #### A LLBG ####[facility] [id number] [place] [address] [place] Calcium.ionized (Bld) [Mass/Vol] 1.36 mmol/L High 1.08-1.30 [facility] Comment on above: Order Comment: Speci men Type: ARTERIAL BLOOD SPECIMENOrdering Facility: [facility] Address: [address] [address] Performed By: #### A LLBG ####[facility] [id number] [place] [address] [place] Calcium.ionized adjusted to pH 7.4 (BldA) [Moles/Vol] 1.39 mmol/L High 1.08-1.30 [facility] Comment on above: Order Comment: Speci men Type: ARTERIAL BLOOD SPECIMENOrdering Facility: [facility] Address: [address] [address] Performed By: #### A LLBG ####[facility] [id number] [place] [address] [place] Carboxyhemoglobin (BldA) [Mass fraction] 1.3 % Normal 0.0-2.0 [facility] Comment on above: Order Comment: Speci men Type: ARTERIAL BLOOD SPECIMENOrdering Facility: [facility] Address: [address] [place] [address] Result Comment: Carb oxyhemoglobin Reference Range for Smokers: 2.0-8.0% Performed By: #### A LLBG ####[facility] [id number] [place] [address] [place] CO2 (Bld) [Partial pressure] 33 mm Hg Low 36-46 [facility] Comment on above: Order Comment: Speci men Type: ARTERIAL BLOOD SPECIMENOrdering Facility: [facility] Address: [address] Performed By: #### A LLBG ####[facility] [id number] [place] [address] [place] CO2 [Moles/Vol] 24 mmol/L Normal 22-28 [facility] Comment on above: Order Comment: Speci men Type: ARTERIAL BLOOD SPECIMENOrdering Facility: [facility] Address: [address] Performed By: #### A LLBG ####[facility] [id number] [place] [address] [place] Glucose [Mass/Vol] 105 mg/dL Normal 60-105 [facility] Comment on above: Order Comment: Speci men Type: ARTERIAL BLOOD SPECIMENOrdering Facility: [facility] Address: [address] [place], [place] [id number] Performed By: #### A LLBG ####[facility] [id number] [place] [address] [place] HCO3 (Bld) [Moles/Vol] 23 mmol/L Normal 22-26 [facility] Comment on above: Order Comment: Speci men Type: ARTERIAL BLOOD SPECIMENOrdering Facility: [facility] Address: [address] [place] [id number] Performed By: #### A LLBG ####[facility] [id number] [place] [address] [place] Hematocrit (Bld) [Volume fraction] 26.0 % Low 36.0-46.0 [facility] Comment on above: Order Comment: Speci men Type: ARTERIAL BLOOD SPECIMENOrdering Facility: [facility] Address: [address] [place] [id number] Performed By: #### A LLBG ####[facility] [id number] [place] [address] [place] Hemoglobin (Bld) [Mass/Vol] 8.4 g/dL Low 11.5-15.5 [facility] Comment on above: Order Comment: Speci men Type: ARTERIAL BLOOD SPECIMENOrdering Facility: [facility] Address: [address] [place] [id number] Performed By: #### A LLBG ####[facility] [id number] [place] [address] [place] Lactate [Moles/Vol] 1.4 mmol/L Normal 0.5-2.2 [facility] Comment on above: Order Comment: Speci men Type: ARTERIAL BLOOD SPECIMENOrdering Facility: [facility] Address: [address] Performed By: #### A LLBG ####[facility] [id number] [place] [address] [place] Methemoglobin (Bld) [Mass fraction] 1.4 % Normal 0.0-1.5 [facility] Comment on above: Order Comment: Speci men Type: ARTERIAL BLOOD SPECIMENOrdering Facility: [facility] Address: [address] Performed By: #### A LLBG ####[facility] [id number] [place] [address] [place] O2 THERAPY NC = Nasal Cannula Normal [facility] Comment on above: Order Comment: Speci men Type: ARTERIAL BLOOD SPECIMENOrdering Facility: [facility] Address: [address] Performed By: #### A LLBG ####[facility] [id number] [place] [address] [place] Oxygen (Bld) [Partial pressure] 129 mm Hg High 85-95 [facility] Comment on above: Order Comment: Speci men Type: ARTERIAL BLOOD SPECIMENOrdering Facility: [facility] Address: [address] Performed By: #### A LLBG ####[facility] [id number] [place] [address] [place] Oxyhemoglobin (BldA) [Mass fraction] 97 % Normal 95-98 [facility] Comment on above: Order Comment: Speci men Type: ARTERIAL BLOOD SPECIMENOrdering Facility: [facility] Address: [address] Performed By: #### A LLBG ####[facility] [id number] [place] [address] [place] pH (Bld) 7.45 [pH] Normal 7.35-7.45 [facility] Comment on above: Order Comment: Speci men Type: ARTERIAL BLOOD SPECIMENOrdering Facility: [facility] Address: [address] [place] [id number] Performed By: #### A LLBG ####[facility] [id number] [place] [address] [place] Potassium [Moles/Vol] 4.2 mmol/L Normal 3.5-5.0 [facility] Comment on above: Order Comment: Speci men Type: ARTERIAL BLOOD SPECIMENOrdering Facility: [facility] Address: [address] [place] [id number] Performed By: #### A LLBG ####[facility] [id number] [place] [address] [place] Sodium [Moles/Vol] 136 mmol/L Normal 136-144 [facility] Comment on above: Order Comment: Speci men Type: ARTERIAL BLOOD SPECIMENOrdering Facility: [facility] Address: [address] [place] [id number] Performed By: #### A LLBG ####[facility] [id number] [place] [address] [place] Base excess Calc (Bld) [Moles/Vol] 0 mmol/L Normal 0-2 [facility] Comment on above: Order Comment: Speci men Type: ARTERIAL BLOOD SPECIMENOrdering Facility: [facility] Address: [address] [place] [id number] Performed By: #### A LLBG ####[facility] [id number] [place] [address] [place] Body temperature 98.6 [degF] Normal [facility] Comment on above: Order Comment: Speci men Type: ARTERIAL BLOOD SPECIMENOrdering Facility: [facility] Address: [address] [address] Performed By: #### A LLBG ####[facility] [id number] [place] [address] [place] Calcium.ionized (Bld) [Mass/Vol] 1.34 mmol/L High 1.08-1.30 [facility] Comment on above: Order Comment: Speci men Type: ARTERIAL BLOOD SPECIMENOrdering Facility: [facility] Address: [address] [address] Performed By: #### A LLBG ####[facility] [id number] [place] [address] [place] Calcium.ionized adjusted to pH 7.4 (BldA) [Moles/Vol] 1.38 mmol/L High 1.08-1.30 [facility] Comment on above: Order Comment: Speci men Type: ARTERIAL BLOOD SPECIMENOrdering Facility: [facility] Address: [address] [place] [address] Performed By: #### A LLBG ####[facility] [id number] [place] [address] [place] Carboxyhemoglobin (BldA) [Mass fraction] 1.3 % Normal 0.0-2.0 [facility] Comment on above: Order Comment: Speci men Type: ARTERIAL BLOOD SPECIMENOrdering Facility: [facility] Address: [address] [place] [address] Result Comment: Carb oxyhemoglobin Reference Range for Smokers: 2.0-8.0% Performed By: #### A LLBG ####[facility] [id number] [place] [address] [place] CO2 (Bld) [Partial pressure] 33 mm Hg Low 36-46 [facility] Comment on above: Order Comment: Speci men Type: ARTERIAL BLOOD SPECIMENOrdering Facility: [facility] Address: [address] Performed By: #### A LLBG ####[facility] [id number] [place] [address] [place] CO2 [Moles/Vol] 24 mmol/L Normal 22-28 [facility] Comment on above: Order Comment: Speci men Type: ARTERIAL BLOOD SPECIMENOrdering Facility: [facility] Address: [address] Performed By: #### A LLBG ####[facility] [id number] [place] [address] [place] Glucose [Mass/Vol] 131 mg/dL High 60-105 [facility] Comment on above: Order Comment: Speci men Type: ARTERIAL BLOOD SPECIMENOrdering Facility: [facility] Address: [address] Performed By: #### A LLBG ####[facility] [id number] [place] [address] [place] HCO3 (Bld) [Moles/Vol] 23 mmol/L Normal 22-26 [facility] Comment on above: Order Comment: Speci men Type: ARTERIAL BLOOD SPECIMENOrdering Facility: [facility] Address: [address] Performed By: #### A LLBG ####[facility] [id number] [place] [address] [place] Hematocrit (Bld) [Volume fraction] 26.4 % Low 36.0-46.0 [facility] Comment on above: Order Comment: Speci men Type: ARTERIAL BLOOD SPECIMENOrdering Facility: [facility] Address: [address] Performed By: #### A LLBG ####[facility] [id number] [place] [address] [place] Hemoglobin (Bld) [Mass/Vol] 8.5 g/dL Low 11.5-15.5 [facility] Comment on above: Order Comment: Speci men Type: ARTERIAL BLOOD SPECIMENOrdering Facility: [facility] Address: [address] [address] Performed By: #### A LLBG ####[facility] [id number] [place] [address] [place] Lactate [Moles/Vol] 1.2 mmol/L Normal 0.5-2.2 [facility] Comment on above: Order Comment: Speci men Type: ARTERIAL BLOOD SPECIMENOrdering Facility: [facility] Address: [address] [address] Performed By: #### A LLBG ####[facility] [id number] [place] [address] [place] LITERS 1 Liters/min Normal [facility] Comment on above: Order Comment: Speci men Type: ARTERIAL BLOOD SPECIMENOrdering Facility: [facility] Address: [address] [place] [id number] Performed By: #### A LLBG ####[facility] [id number] [place] [address] [place] Methemoglobin (Bld) [Mass fraction] 1.1 % Normal 0.0-1.5 [facility] Comment on above: Order Comment: Speci men Type: ARTERIAL BLOOD SPECIMENOrdering Facility: [facility] Address: [address] Performed By: #### A LLBG ####[facility] [id number] [place] [address] [place] O2 THERAPY NC = Nasal Cannula Normal [facility] Comment on above: Order Comment: Speci men Type: ARTERIAL BLOOD SPECIMENOrdering Facility: [facility] Address: [address] Performed By: #### A LLBG ####[facility] [id number] [place] [address] [place] Oxygen (Bld) [Partial pressure] 105 mm Hg High 85-95 [facility] Comment on above: Order Comment: Speci men Type: ARTERIAL BLOOD SPECIMENOrdering Facility: [facility] Address: [address] [place] [id number] Performed By: #### A LLBG ####[facility] [id number] [place] [address] [place] Oxyhemoglobin (BldA) [Mass fraction] 96 % Normal 95-98 [facility] Comment on above: Order Comment: Speci men Type: ARTERIAL BLOOD SPECIMENOrdering Facility: [facility] Address: [address] [place] [id number] Performed By: #### A LLBG ####[facility] [id number] [place] [address] [place] pH (Bld) 7.46 [pH] High 7.35-7.45 [facility] Comment on above: Order Comment: Speci men Type: ARTERIAL BLOOD SPECIMENOrdering Facility: [facility] Address: [address] [place] [id number] Performed By: #### A LLBG ####[facility] [id number] [place] [address] [place] Potassium [Moles/Vol] 4.4 mmol/L Normal 3.5-5.0 [facility] Comment on above: Order Comment: Speci men Type: ARTERIAL BLOOD SPECIMENOrdering Facility: [facility] Address: [address] [place] [id number] Performed By: #### A LLBG ####[facility] [id number] [place] [address] [place] Sodium [Moles/Vol] 135 mmol/L Low 136-144 [facility] Comment on above: Order Comment: Speci men Type: ARTERIAL BLOOD SPECIMENOrdering Facility: [facility] Address: [address] [place] [id number] Performed By: #### A LLBG ####[facility] [id number] [place] [address] [place] Base deficit (BldA) [Moles/Vol] -1 mmol/L Normal -2-0 [facility] Comment on above: Order Comment: Speci men Type: ARTERIAL BLOOD SPECIMENOrdering Facility: [facility] Address: [address] [place] [id number] Performed By: #### A LLBG ####[facility] [id number] [address] [place] Body temperature 98.6 [degF] Normal [facility] Comment on above: Order Comment: Speci men Type: ARTERIAL BLOOD SPECIMENOrdering Facility: [facility] Address: [address] [place] [id number] Performed By: #### A LLBG ####[facility] [id number] [place] [address] [place] Calcium.ionized (Bld) [Mass/Vol] 1.36 mmol/L High 1.08-1.30 [facility] Comment on above: Order Comment: Speci men Type: ARTERIAL BLOOD SPECIMENOrdering Facility: [facility] Address: [address] [place] [id number] Performed By: #### A LLBG ####[facility] [id number] [place] [address] [place] Calcium.ionized adjusted to pH 7.4 (BldA) [Moles/Vol] 1.38 mmol/L High 1.08-1.30 [facility] Comment on above: Order Comment: Speci men Type: ARTERIAL BLOOD SPECIMENOrdering Facility: [facility] Address: [address] Performed By: #### A LLBG ####[facility] [id number] [address] [place] Carboxyhemoglobin (BldA) [Mass fraction] <0.0 Low 0.0-2.0 [facility] Comment on above: Order Comment: Speci men Type: ARTERIAL BLOOD SPECIMENOrdering Facility: [facility] Address: [address] Result Comment: Carb oxyhemoglobin Reference Range for Smokers: 2.0-8.0% Performed By: #### A LLBG ####[facility] [id number] [address] [place] CO2 (Bld) [Partial pressure] 36 mm Hg Normal 36-46 [facility] Comment on above: Order Comment: Speci men Type: ARTERIAL BLOOD SPECIMENOrdering Facility: [facility] Address: [address] Performed By: #### A LLBG ####[facility] [id number] [place] [address] [place] CO2 [Moles/Vol] 24 mmol/L Normal 22-28 [facility] Comment on above: Order Comment: Speci men Type: ARTERIAL BLOOD SPECIMENOrdering Facility: [facility] Address: [address] Performed By: #### A LLBG ####[facility] [id number] [place] [address] [place] Glucose [Mass/Vol] 136 mg/dL High 60-105 [facility] Comment on above: Order Comment: Speci men Type: ARTERIAL BLOOD SPECIMENOrdering Facility: [facility] Address: [address] Performed By: #### A LLBG ####[facility] [id number] [place] [address] [place] HCO3 (Bld) [Moles/Vol] 23 mmol/L Normal 22-26 [facility] Comment on above: Order Comment: Speci men Type: ARTERIAL BLOOD SPECIMENOrdering Facility: [facility] Address: [address] [place] [address] Performed By: #### A LLBG ####[facility] [id number] [place] [address] [place] Hematocrit (Bld) [Volume fraction] 27.3 % Low 36.0-46.0 [facility] Comment on above: Order Comment: Speci men Type: ARTERIAL BLOOD SPECIMENOrdering Facility: [facility] Address: [address] [place] [address] Performed By: #### A LLBG ####[facility] [id number] [place] [address] [place] Hemoglobin (Bld) [Mass/Vol] 8.8 g/dL Low 11.5-15.5 [facility] Comment on above: Order Comment: Speci men Type: ARTERIAL BLOOD SPECIMENOrdering Facility: [facility] Address: [address] [place] [id number] Performed By: #### A LLBG ####[facility] [id number] [place] [address] [place] Lactate [Moles/Vol] 0.9 mmol/L Normal 0.5-2.2 [facility] Comment on above: Order Comment: Speci men Type: ARTERIAL BLOOD SPECIMENOrdering Facility: [facility] Address: [address] [place] [id number] Performed By: #### A LLBG ####[facility] [id number] [place] [address] [place] LITERS 1 Liters/min Normal [facility] Comment on above: Order Comment: Speci men Type: ARTERIAL BLOOD SPECIMENOrdering Facility: [facility] Address: [address] [place] [address] Performed By: #### A LLBG ####[facility] [id number] [place] [address] [place] Methemoglobin (Bld) [Mass fraction] 1.1 % Normal 0.0-1.5 [facility] Comment on above: Order Comment: Speci men Type: ARTERIAL BLOOD SPECIMENOrdering Facility: [facility] Address: [address] Performed By: #### A LLBG ####[facility] [id number] [place] [address] [place] O2 THERAPY NC = Nasal Cannula Normal [facility] Comment on above: Order Comment: Speci men Type: ARTERIAL BLOOD SPECIMENOrdering Facility: [facility] Address: [address] Performed By: #### A LLBG ####[facility] [id number] [place] [address] [place] Oxygen (Bld) [Partial pressure] 108 mm Hg High 85-95 [facility] Comment on above: Order Comment: Speci men Type: ARTERIAL BLOOD SPECIMENOrdering Facility: [facility] Address: [address] [place] [address] Performed By: #### A LLBG ####[facility] [id number] [place] [address] [place] Oxyhemoglobin (BldA) [Mass fraction] 96 % Normal 95-98 [facility] Comment on above: Order Comment: Speci men Type: ARTERIAL BLOOD SPECIMENOrdering Facility: [facility] Address: [address] [place] [address] Performed By: #### A LLBG ####[facility] [id number] [place] [address] [place] pH (Bld) 7.42 [pH] Normal 7.35-7.45 [facility] Comment on above: Order Comment: Speci men Type: ARTERIAL BLOOD SPECIMENOrdering Facility: [facility] Address: [address] [place] [address] Performed By: #### A LLBG ####[facility] [id number] [place] [address] [place] Potassium [Moles/Vol] 4.3 mmol/L Normal 3.5-5.0 [facility] Comment on above: Order Comment: Speci men Type: ARTERIAL BLOOD SPECIMENOrdering Facility: [facility] Address: [address] [place] [address] Performed By: #### A LLBG ####[facility] [id number] [place] [address] [place] Sodium [Moles/Vol] 135 mmol/L Low 136-144 [facility] Comment on above: Order Comment: Speci men Type: ARTERIAL BLOOD SPECIMENOrdering Facility: [facility] Address: [address] [place] [id number] Performed By: #### A LLBG ####[facility] [id number] [place] [address] [place] CBC panel Auto (Bld)on 06-28 Erythrocyte distribution width (RBC) [Ratio] 12.6 % Normal 11.5-15.0 [facility] Comment on above: Order Comment: Speci men Type: BLOOD SPECIMENOrdering Facility: [facility] Address: [address] [place] [address] Performed By: #### 5 8410-2 ####[facility] [id number] [place] [address] [place] Hematocrit (Bld) [Volume fraction] 25.3 % Low 36.0-46.0 [facility] Comment on above: Order Comment: Speci men Type: BLOOD SPECIMENOrdering Facility: [facility] Address: [address] [address] Performed By: #### 5 8410-2 ####[facility] [id number] [address] [place] Hemoglobin (Bld) [Mass/Vol] 8.6 g/dL Low 11.5-15.5 [facility] Comment on above: Order Comment: Speci men Type: BLOOD SPECIMENOrdering Facility: [facility] Address: [address] [address] Performed By: #### 5 8410-2 ####[facility] [id number] [address] [place] MCH (RBC) [Entitic mass] 30.9 pg Normal 26.0-34.0 [facility] Comment on above: Order Comment: Speci men Type: BLOOD SPECIMENOrdering Facility: [facility] Address: [address] Performed By: #### 5 8410-2 ####[facility] [id number] [address] [place] MCHC (RBC) [Mass/Vol] 34.0 g/dL Normal 30.5-36.0 [facility] Comment on above: Order Comment: Speci men Type: BLOOD SPECIMENOrdering Facility: [facility] Address: [address] Performed By: #### 5 8410-2 ####[facility] [id number] [address] [place] MCV (RBC) [Entitic vol] 91.0 fL Normal 80.0-100.0 [facility] Comment on above: Order Comment: Speci men Type: BLOOD SPECIMENOrdering Facility: [facility] Address: [address] Performed By: #### 5 8410-2 ####[facility] [id number] [place] [address] [place] Nucleated RBC (Bld) [#/Vol] 10*3/uL Normal <0.01 [facility] Comment on above: Order Comment: Speci men Type: BLOOD SPECIMENOrdering Facility: [facility] Address: [address] Performed By: #### 5 8410-2 ####[facility] [id number] [place] [address] [place] Platelet mean volume (Bld) [Entitic vol] 11.1 fL Normal 9.0-12.7 [facility] Comment on above: Order Comment: Speci men Type: BLOOD SPECIMENOrdering Facility: [facility] Address: [address] [place] [address] Performed By: #### 5 8410-2 ####[facility] [id number] [place] [address] [place] Platelets (Bld) [#/Vol] 83 10*3/uL Low 150-400 [facility] Comment on above: Order Comment: Speci men Type: BLOOD SPECIMENOrdering Facility: [facility] Address: [address] [place] [address] Result Comment: Resu lts checked and verified.No clot detected. Performed By: #### 5 8410-2 ####[facility] [id number] [place] [address] [place] RBC (Bld) [#/Vol] 2.78 10*6/uL Low 3.90-5.20 [facility] Comment on above: Order Comment: Speci men Type: BLOOD SPECIMENOrdering Facility: [facility] Address: [address] [place] [id number] Performed By: #### 5 8410-2 ####[facility] [id number] [place] [address] [place] WBC (Bld) [#/Vol] 11.55 10*3/uL High 3.70-11.00 [facility] Comment on above: Order Comment: Speci men Type: BLOOD SPECIMENOrdering Facility: [facility] Address: [address] [address] Performed By: #### 5 8410-2 ####[facility] [id number] [place] [address] [place] Comprehensive metabolic 2000 panelon 06-28-2022 Albumin [Mass/Vol] 3.5 g/dL Low 3.9-4.9 [facility] Comment on above: Order Comment: Speci men Type: BLOOD SPECIMENOrdering Facility: [facility] Address: [address] [place] [address] Performed By: #### 2 4323-8 ####[facility] [id number] [place] [address] [place] ALP [Catalytic activity/Vol] 50 U/L Normal 34-123 [facility] Comment on above: Order Comment: Speci men Type: BLOOD SPECIMENOrdering Facility: [facility] Address: [address] [place] [address] Performed By: #### 2 4323-8 ####[facility] [id number] [address] [place] ALT [Catalytic activity/Vol] 17 U/L Normal 7-38 [facility] Comment on above: Order Comment: Speci men Type: BLOOD SPECIMENOrdering Facility: [facility] Address: [address] [address] Performed By: #### 2 4323-8 ####[facility] [id number] [place] [address] [place] Anion gap [Moles/Vol] 9 mmol/L Normal 9-18 [facility] Comment on above: Order Comment: Speci men Type: BLOOD SPECIMENOrdering Facility: [facility] Address: [address] Performed By: #### 2 4323-8 ####[facility] [id number] [place] [address] [place] AST [Catalytic activity/Vol] 29 U/L Normal 13-35 [facility] Comment on above: Order Comment: Speci men Type: BLOOD SPECIMENOrdering Facility: [facility] Address: [address] Performed By: #### 2 4323-8 ####[facility] [id number] [place] [address] [place] Bilirubin [Mass/Vol] 1.3 mg/dL Normal 0.2-1.3 [facility] Comment on above: Order Comment: Speci men Type: BLOOD SPECIMENOrdering Facility: [facility] Address: [address] Performed By: #### 2 4323-8 ####[facility] [id number] [place] [address] [place] Calcium [Mass/Vol] 9.7 mg/dL Normal 8.5-10.2 [facility] Comment on above: Order Comment: Speci men Type: BLOOD SPECIMENOrdering Facility: [facility] Address: [address] [place] [address] Performed By: #### 2 4323-8 ####[facility] [id number] [place] [address] [place] Chloride [Moles/Vol] 108 mmol/L High 97-105 [facility] Comment on above: Order Comment: Speci men Type: BLOOD SPECIMENOrdering Facility: [facility] Address: [address] Performed By: #### 2 4323-8 ####[facility] [id number] [place] [address] [place] CO2 [Moles/Vol] 20 mmol/L Low 22-30 [facility] Comment on above: Order Comment: Speci men Type: BLOOD SPECIMENOrdering Facility: [facility] Address: [address] [place] [address] Performed By: #### 2 4323-8 ####[facility] [id number] [place] [address] [place] Creatinine [Mass/Vol] 0.52 mg/dL Low 0.58-0.96 [facility] Comment on above: Order Comment: Speci men Type: BLOOD SPECIMENOrdering Facility: [facility] Address: [address] [place] [address] Performed By: #### 2 4323-8 ####[facility] [id number] [address] [place] ESTIMATED GLOMERULAR FILTRATION RATE 107 mL/min/1.73m??? Normal >=60 [facility] Comment on above: Order Comment: Speci men Type: BLOOD SPECIMENOrdering Facility: [facility] Address: [address] [place] [address] Result Comment: Lola mated Glomerular Filtration Rate (eGFR) is calculated using the 2020 CKD-EPI creatinine equation. This equation utilizes serum creatinine, sex, and age as parameters. The creatinine assay has traceable calibration to isotope dilution-mass spectrometry. Refer to KDIGO guidelines for clinical interpretation. In patients with unstable renal function, e.g. those with acute kidney injury, the eGFR may not accurately reflect actual GFR. Performed By: #### 2 4323-8 ####[facility] [id number] [place] [address] [place] Glucose [Mass/Vol] 133 mg/dL High 74-99 [facility] Comment on above: Order Comment: Speci men Type: BLOOD SPECIMENOrdering Facility: [facility] Address: [address] [place] [address] Result Comment: The [place] Diabetes [employer] (ADA) provides guidance for cutoff values for fasting glucose and random glucose. The ADA defines fasting as no caloric intake for at least 8 hours. Fasting plasma glucose results between 100 to 125 mg/dL indicate increased risk for diabetes (prediabetes).Fasting plasma glucose results greater than or equal to 126 mg/dL meet the criteria for diagnosis of diabetes. In the absence of unequivocal hyperglycemia, results should be confirmed by repeat testing. In a patient with classic symptoms of hyperglycemia or hyperglycemic crisis, random plasma glucose results greater than or equal to 200 mg/dL meet the criteria for diagnosis of diabetes.Reference: Standards of Medical Care in Diabetes 2016, [place] [employer]. Diabetes Care. 2016.39(Suppl 1). Performed By: #### 2 4323-8 ####[facility] [id number] [place] [address] [place] Potassium [Moles/Vol] 4.5 mmol/L Normal 3.7-5.1 [facility] Comment on above: Order Comment: Speci men Type: BLOOD SPECIMENOrdering Facility: [facility] Address: [address] [place] [address] Performed By: #### 2 4323-8 ####[facility] [id number] [place] [address] [place] Protein [Mass/Vol] 5.3 g/dL Low 6.3-8.0 [facility] Comment on above: Order Comment: Speci men Type: BLOOD SPECIMENOrdering Facility: [facility] Address: [address] [address] Performed By: #### 2 4323-8 ####[facility] [id number] [place] [address] [place] Sodium [Moles/Vol] 137 mmol/L Normal 136-144 [facility] Comment on above: Order Comment: Speci men Type: BLOOD SPECIMENOrdering Facility: [facility] Address: [address] Performed By: #### 2 4323-8 ####[facility] [id number] [place] [address] [place] Urea nitrogen [Mass/Vol] 10 mg/dL Normal 7-21 [facility] Comment on above: Order Comment: Speci men Type: BLOOD SPECIMENOrdering Facility: [facility] Address: [address] Performed By: #### 2 4323-8 ####[facility] [id number] [place] [address] [place] XR CHEST 1V FRONTAL PORTon 1 08-29-2021 XR CHEST 1V FRONTAL PORT Normal [facility] ARTERIAL BLOOD GASESon 06-27 Base deficit (BldA) [Moles/Vol] -2 mmol/L Normal -2-0 [facility] Comment on above: Order Comment: Speci men Type: ARTERIAL BLOOD SPECIMENOrdering Facility: [facility] Address: [address] [place], [place] [id number] Performed By: #### A LLBG ####[facility] [id number] [place] [address] [place] Body temperature 97.88 [degF] Normal [facility] Comment on above: Order Comment: Speci men Type: ARTERIAL BLOOD SPECIMENOrdering Facility: [facility] Address: [address] [place] [id number] Performed By: #### A LLBG ####[facility] [id number] [place] [address] [place] Calcium.ionized (Bld) [Mass/Vol] 1.33 mmol/L High 1.08-1.30 [facility] Comment on above: Order Comment: Speci men Type: ARTERIAL BLOOD SPECIMENOrdering Facility: [facility] Address: [address] [place] [id number] Performed By: #### A LLBG ####[facility] [id number] [place] [address] [place] Calcium.ionized adjusted to pH 7.4 (BldA) [Moles/Vol] 1.33 mmol/L High 1.08-1.30 [facility] Comment on above: Order Comment: Speci men Type: ARTERIAL BLOOD SPECIMENOrdering Facility: [facility] Address: [address] [place] [address] Performed By: #### A LLBG ####[facility] [id number] [place] [address] [place] Carboxyhemoglobin (BldA) [Mass fraction] 1.4 % Normal 0.0-2.0 [facility] Comment on above: Order Comment: Speci men Type: ARTERIAL BLOOD SPECIMENOrdering Facility: [facility] Address: [address] [place] [address] Result Comment: Carb oxyhemoglobin Reference Range for Smokers: 2.0-8.0% Performed By: #### A LLBG ####[facility] [id number] [place] [address] [place] CO2 (Bld) [Partial pressure] 34 mm Hg Low 36-46 [facility] Comment on above: Order Comment: Speci men Type: ARTERIAL BLOOD SPECIMENOrdering Facility: [facility] Address: [address] [place] [address] Performed By: #### A LLBG ####[facility] [id number] [place] [address] [place] CO2 [Moles/Vol] 23 mmol/L Normal 22-28 [facility] Comment on above: Order Comment: Speci men Type: ARTERIAL BLOOD SPECIMENOrdering Facility: [facility] Address: [address] Performed By: #### A LLBG ####[facility] [id number] [address] [place] CO2 adjusted to patient's actual temperature (Bld) [Partial pressure] 34 mmHg Low 36-46 [facility] Comment on above: Order Comment: Speci men Type: ARTERIAL BLOOD SPECIMENOrdering Facility: [facility] Address: [address] [place] [address] Performed By: #### A LLBG ####[facility] [id number] [place] [address] [place] Glucose [Mass/Vol] 153 mg/dL High 60-105 [facility] Comment on above: Order Comment: Speci men Type: ARTERIAL BLOOD SPECIMENOrdering Facility: [facility] Address: [address] [place] [address] Performed By: #### A LLBG ####[facility] [id number] [place] [address] [place] HCO3 (Bld) [Moles/Vol] 22 mmol/L Normal 22-26 [facility] Comment on above: Order Comment: Speci men Type: ARTERIAL BLOOD SPECIMENOrdering Facility: [facility] Address: [address] [place], [place] [id number] Performed By: #### A LLBG ####[facility] [id number] [place] [address] [place] Hematocrit (Bld) [Volume fraction] 27.5 % Low 36.0-46.0 [facility] Comment on above: Order Comment: Speci men Type: ARTERIAL BLOOD SPECIMENOrdering Facility: [facility] Address: [address] [place] [id number] Performed By: #### A LLBG ####[facility] [id number] [place] [address] [place] Hemoglobin (Bld) [Mass/Vol] 8.9 g/dL Low 11.5-15.5 [facility] Comment on above: Order Comment: Speci men Type: ARTERIAL BLOOD SPECIMENOrdering Facility: [facility] Address: [address] Performed By: #### A LLBG ####[facility] [id number] [place] [address] [place] Lactate [Moles/Vol] 1.4 mmol/L Normal 0.5-2.2 [facility] Comment on above: Order Comment: Speci men Type: ARTERIAL BLOOD SPECIMENOrdering Facility: [facility] Address: [address] [address] Performed By: #### A LLBG ####[facility] [id number] [place] [address] [place] LITERS 1 Liters/min Normal [facility] Comment on above: Order Comment: Speci men Type: ARTERIAL BLOOD SPECIMENOrdering Facility: [facility] Address: [address] Performed By: #### A LLBG ####[facility] [id number] [place] [address] [place] Methemoglobin (Bld) [Mass fraction] 1.4 % Normal 0.0-1.5 [facility] Comment on above: Order Comment: Speci men Type: ARTERIAL BLOOD SPECIMENOrdering Facility: [facility] Address: [address] Performed By: #### A LLBG ####[facility] [id number] [place] [address] [place] O2 THERAPY NC = Nasal Cannula Normal [facility] Comment on above: Order Comment: Speci men Type: ARTERIAL BLOOD SPECIMENOrdering Facility: [facility] Address: [address] Performed By: #### A LLBG ####[facility] [id number] [place] [address] [place] Oxygen (Bld) [Partial pressure] 105 mm Hg High 85-95 [facility] Comment on above: Order Comment: Speci men Type: ARTERIAL BLOOD SPECIMENOrdering Facility: [facility] Address: [address] [place] [address] Performed By: #### A LLBG ####[facility] [id number] [place] [address] [place] Oxygen adjusted to patient's actual temperature (Bld) [Partial pressure] 102 mmHg High 85-95 [facility] Comment on above: Order Comment: Speci men Type: ARTERIAL BLOOD SPECIMENOrdering Facility: [facility] Address: [address] [place] [address] Performed By: #### A LLBG ####[facility] [id number] [place] [address] [place] Oxyhemoglobin (BldA) [Mass fraction] 95 % Normal 95-98 [facility] Comment on above: Order Comment: Speci men Type: ARTERIAL BLOOD SPECIMENOrdering Facility: [facility] Address: [address] [place] [id number] Performed By: #### A LLBG ####[facility] [id number] [place] [address] [place] pH (Bld) 7.41 [pH] Normal 7.35-7.45 [facility] Comment on above: Order Comment: Speci men Type: ARTERIAL BLOOD SPECIMENOrdering Facility: [facility] Address: [address] [place], [place] [id number] Performed By: #### A LLBG ####[facility] [id number] [place] [address] [place] pH adjusted to patient's actual temperature (Bld) 7.42 Normal 7.35-7.45 [facility] Comment on above: Order Comment: Speci men Type: ARTERIAL BLOOD SPECIMENOrdering Facility: [facility] Address: [address] Performed By: #### A LLBG ####[facility] [id number] [place] [address] [place] Potassium [Moles/Vol] 4.2 mmol/L Normal 3.5-5.0 [facility] Comment on above: Order Comment: Speci men Type: ARTERIAL BLOOD SPECIMENOrdering Facility: [facility] Address: [address] Performed By: #### A LLBG ####[facility] [id number] [place] [address] [place] Sodium [Moles/Vol] 136 mmol/L Normal 136-144 [facility] Comment on above: Order Comment: Speci men Type: ARTERIAL BLOOD SPECIMENOrdering Facility: [facility] Address: [address] Performed By: #### A LLBG ####[facility] [id number] [place] [address] [place] Base deficit (BldA) [Moles/Vol] -3 mmol/L Low -2-0 [facility] Comment on above: Order Comment: Speci men Type: ARTERIAL BLOOD SPECIMENOrdering Facility: [facility] Address: [address] Performed By: #### A LLBG ####[facility] [id number] [place] [address] [place] Body temperature 98.6 [degF] Normal [facility] Comment on above: Order Comment: Speci men Type: ARTERIAL BLOOD SPECIMENOrdering Facility: [facility] Address: [address] Performed By: #### A LLBG ####[facility] [id number] [place] [address] [place] Calcium.ionized (Bld) [Mass/Vol] 1.27 mmol/L Normal 1.08-1.30 [facility] Comment on above: Order Comment: Speci men Type: ARTERIAL BLOOD SPECIMENOrdering Facility: [facility] Address: [address] [place] [address] Performed By: #### A LLBG ####[facility] [id number] [place] [address] [place] Calcium.ionized adjusted to pH 7.4 (BldA) [Moles/Vol] 1.30 mmol/L Normal 1.08-1.30 [facility] Comment on above: Order Comment: Speci men Type: ARTERIAL BLOOD SPECIMENOrdering Facility: [facility] Address: [address] [place] [address] Performed By: #### A LLBG ####[facility] [id number] [address] [place] Carboxyhemoglobin (BldA) [Mass fraction] 1.5 % Normal 0.0-2.0 [facility] Comment on above: Order Comment: Speci men Type: ARTERIAL BLOOD SPECIMENOrdering Facility: [facility] Address: [address] [place] [address] Result Comment: Carb oxyhemoglobin Reference Range for Smokers: 2.0-8.0% Performed By: #### A LLBG ####[facility] [id number] [place] [address] [place] CO2 (Bld) [Partial pressure] 31 mm Hg Low 36-46 [facility] Comment on above: Order Comment: Speci men Type: ARTERIAL BLOOD SPECIMENOrdering Facility: [facility] Address: [address] [place] [id number] Performed By: #### A LLBG ####[facility] [id number] [place] [address] [place] CO2 [Moles/Vol] 21 mmol/L Low 22-28 [facility] Comment on above: Order Comment: Speci men Type: ARTERIAL BLOOD SPECIMENOrdering Facility: [facility] Address: [address] Performed By: #### A LLBG ####[facility] [id number] [place] [address] [place] Glucose [Mass/Vol] 132 mg/dL High 60-105 [facility] Comment on above: Order Comment: Speci men Type: ARTERIAL BLOOD SPECIMENOrdering Facility: [facility] Address: [address] Performed By: #### A LLBG ####[facility] [id number] [place] [address] [place] HCO3 (Bld) [Moles/Vol] 21 mmol/L Low 22-26 [facility] Comment on above: Order Comment: Speci men Type: ARTERIAL BLOOD SPECIMENOrdering Facility: [facility] Address: [address] Performed By: #### A LLBG ####[facility] [id number] [place] [address] [place] Hematocrit (Bld) [Volume fraction] 28.4 % Low 36.0-46.0 [facility] Comment on above: Order Comment: Speci men Type: ARTERIAL BLOOD SPECIMENOrdering Facility: [facility] Address: [address] Performed By: #### A LLBG ####[facility] [id number] [place] [address] [place] Hemoglobin (Bld) [Mass/Vol] 9.1 g/dL Low 11.5-15.5 [facility] Comment on above: Order Comment: Speci men Type: ARTERIAL BLOOD SPECIMENOrdering Facility: [facility] Address: [address] Performed By: #### A LLBG ####[facility] [id number] [place] [address] [place] Lactate [Moles/Vol] 0.8 mmol/L Normal 0.5-2.2 [facility] Comment on above: Order Comment: Speci men Type: ARTERIAL BLOOD SPECIMENOrdering Facility: [facility] Address: [address] [place] [id number] Performed By: #### A LLBG ####[facility] [id number] [place] [address] [place] Methemoglobin (Bld) [Mass fraction] 1.2 % Normal 0.0-1.5 [facility] Comment on above: Order Comment: Speci men Type: ARTERIAL BLOOD SPECIMENOrdering Facility: [facility] Address: [address] [place] [id number] Performed By: #### A LLBG ####[facility] [id number] [place] [address] [place] O2 THERAPY NC = Nasal Cannula Normal [facility] Comment on above: Order Comment: Speci men Type: ARTERIAL BLOOD SPECIMENOrdering Facility: [facility] Address: [address] [place] [id number] Performed By: #### A LLBG ####[facility] [id number] [place] [address] [place] Oxygen (Bld) [Partial pressure] 95 mm Hg Normal 85-95 [facility] Comment on above: Order Comment: Speci men Type: ARTERIAL BLOOD SPECIMENOrdering Facility: [facility] Address: [address] [place] [address] Performed By: #### A LLBG ####[facility] [id number] [place] [address] [place] Oxyhemoglobin (BldA) [Mass fraction] 95 % Normal 95-98 [facility] Comment on above: Order Comment: Speci men Type: ARTERIAL BLOOD SPECIMENOrdering Facility: [facility] Address: [address] Performed By: #### A LLBG ####[facility] [id number] [place] [address] [place] pH (Bld) 7.43 [pH] Normal 7.35-7.45 [facility] Comment on above: Order Comment: Speci men Type: ARTERIAL BLOOD SPECIMENOrdering Facility: [facility] Address: [address] Performed By: #### A LLBG ####[facility] [id number] [place] [address] [place] Potassium [Moles/Vol] 3.9 mmol/L Normal 3.5-5.0 [facility] Comment on above: Order Comment: Speci men Type: ARTERIAL BLOOD SPECIMENOrdering Facility: [facility] Address: [address] Performed By: #### A LLBG ####[facility] [id number] [place] [address] [place] Sodium [Moles/Vol] 136 mmol/L Normal 136-144 [facility] Comment on above: Order Comment: Speci men Type: ARTERIAL BLOOD SPECIMENOrdering Facility: [facility] Address: [address] [place] [address] Performed By: #### A LLBG ####[facility] [id number] [place] [address] [place] Base deficit (BldA) [Moles/Vol] -2 mmol/L Normal -2-0 [facility] Comment on above: Order Comment: Speci men Type: ARTERIAL BLOOD SPECIMENOrdering Facility: [facility] Address: [address] Performed By: #### A LLBG ####[facility] [id number] [address] [place] Body temperature 98.6 [degF] Normal [facility] Comment on above: Order Comment: Speci men Type: ARTERIAL BLOOD SPECIMENOrdering Facility: [facility] Address: [address] Performed By: #### A LLBG ####[facility] [id number] [place] [address] [place] Calcium.ionized (Bld) [Mass/Vol] 1.30 mmol/L Normal 1.08-1.30 [facility] Comment on above: Order Comment: Speci men Type: ARTERIAL BLOOD SPECIMENOrdering Facility: [facility] Address: [address] [place] [id number] Performed By: #### A LLBG ####[facility] [id number] [address] [place] [facility] Calcium.ionized adjusted to pH 7.4 (BldA) [Moles/Vol] 1.29 mmol/L Normal 1.08-1.30 [facility] Comment on above: Order Comment: Speci men Type: ARTERIAL BLOOD SPECIMENOrdering Facility: [facility] Address: [address] Performed By: #### A LLBG ####[facility] [id number] [address] [place] Carboxyhemoglobin (BldA) [Mass fraction] 1.4 % Normal 0.0-2.0 [facility] Comment on above: Order Comment: Speci men Type: ARTERIAL BLOOD SPECIMENOrdering Facility: [facility] Address: [address] Result Comment: Carb oxyhemoglobin Reference Range for Smokers: 2.0-8.0% Performed By: #### A LLBG ####[facility] [id number] [place] [address] [place] CO2 (Bld) [Partial pressure] 37 mm Hg Normal 36-46 [facility] Comment on above: Order Comment: Speci men Type: ARTERIAL BLOOD SPECIMENOrdering Facility: [facility] Address: [address] [place] [address] Performed By: #### A LLBG ####[facility] [id number] [place] [address] [place] CO2 [Moles/Vol] 23 mmol/L Normal 22-28 [facility] Comment on above: Order Comment: Speci men Type: ARTERIAL BLOOD SPECIMENOrdering Facility: [facility] Address: [address] [place] [address] Performed By: #### A LLBG ####[facility] [id number] [place] [address] [place] Glucose [Mass/Vol] 121 mg/dL High 60-105 [facility] Comment on above: Order Comment: Speci men Type: ARTERIAL BLOOD SPECIMENOrdering Facility: [facility] Address: [address] [place] [address] Performed By: #### A LLBG ####[facility] [id number] [place] [address] [place] HCO3 (Bld) [Moles/Vol] 22 mmol/L Normal 22-26 [facility] Comment on above: Order Comment: Speci men Type: ARTERIAL BLOOD SPECIMENOrdering Facility: [facility] Address: [address] [place], [place] [id number] Performed By: #### A LLBG ####[facility] [id number] [place] [address] [place] Hematocrit (Bld) [Volume fraction] 29.4 % Low 36.0-46.0 [facility] Comment on above: Order Comment: Speci men Type: ARTERIAL BLOOD SPECIMENOrdering Facility: [facility] Address: [address] [place] [address] Performed By: #### A LLBG ####[facility] [id number] [address] [place] Hemoglobin (Bld) [Mass/Vol] 9.5 g/dL Low 11.5-15.5 [facility] Comment on above: Order Comment: Speci men Type: ARTERIAL BLOOD SPECIMENOrdering Facility: [facility] Address: [address] Performed By: #### A LLBG ####[facility] [id number] [place] [address] [place] Lactate [Moles/Vol] 0.8 mmol/L Normal 0.5-2.2 [facility] Comment on above: Order Comment: Speci men Type: ARTERIAL BLOOD SPECIMENOrdering Facility: [facility] Address: [address] Performed By: #### A LLBG ####[facility] [id number] [address] [place] Methemoglobin (Bld) [Mass fraction] 1.1 % Normal 0.0-1.5 [facility] Comment on above: Order Comment: Speci men Type: ARTERIAL BLOOD SPECIMENOrdering Facility: [facility] Address: [address] Performed By: #### A LLBG ####[facility] [id number] [place] [address] [place] O2 THERAPY NC = Nasal Cannula Normal [facility] Comment on above: Order Comment: Speci men Type: ARTERIAL BLOOD SPECIMENOrdering Facility: [facility] Address: [address] Performed By: #### A LLBG ####[facility] [id number] [place] [address] [place] Oxygen (Bld) [Partial pressure] 84 mm Hg Low 85-95 [facility] Comment on above: Order Comment: Speci men Type: ARTERIAL BLOOD SPECIMENOrdering Facility: [facility] Address: [address] [place] [id number] Performed By: #### A LLBG ####[facility] [id number] [place] [address] [place] Oxyhemoglobin (BldA) [Mass fraction] 94 % Low 95-98 [facility] Comment on above: Order Comment: Speci men Type: ARTERIAL BLOOD SPECIMENOrdering Facility: [facility] Address: [address] [place] [id number] Performed By: #### A LLBG ####[facility] [id number] [place] [address] [place] pH (Bld) 7.39 [pH] Normal 7.35-7.45 [facility] Comment on above: Order Comment: Speci men Type: ARTERIAL BLOOD SPECIMENOrdering Facility: [facility] Address: [address] [place] [id number] Performed By: #### A LLBG ####[facility] [id number] [place] [address] [place] Potassium [Moles/Vol] 4.3 mmol/L Normal 3.5-5.0 [facility] Comment on above: Order Comment: Speci men Type: ARTERIAL BLOOD SPECIMENOrdering Facility: [facility] Address: [address] [place] [id number] Performed By: #### A LLBG ####[facility] [id number] [place] [address] [place] Sodium [Moles/Vol] 132 mmol/L Low 136-144 [facility] Comment on above: Order Comment: Speci men Type: ARTERIAL BLOOD SPECIMENOrdering Facility: [facility] Address: [address] Performed By: #### A LLBG ####[facility] [id number] [address] Base deficit (BldA) [Moles/Vol] -3 mmol/L Low -2-0 [facility] Comment on above: Order Comment: Speci men Type: ARTERIAL BLOOD SPECIMENOrdering Facility: [facility] Address: [address] [place] [id number] Performed By: #### A LLBG ####[facility] [id number] [address] [place] Body temperature 98.6 [degF] Normal [facility] Comment on above: Order Comment: Speci men Type: ARTERIAL BLOOD SPECIMENOrdering Facility: [facility] Address: [address] [place] [id number] Performed By: #### A LLBG ####[facility] [id number] [address] [place] Calcium.ionized (Bld) [Mass/Vol] 1.29 mmol/L Normal 1.08-1.30 [facility] Comment on above: Order Comment: Speci men Type: ARTERIAL BLOOD SPECIMENOrdering Facility: [facility] Address: [address] [place] [address] Performed By: #### A LLBG ####[facility] [id number] [address] [place] Calcium.ionized adjusted to pH 7.4 (BldA) [Moles/Vol] 1.27 mmol/L Normal 1.08-1.30 [facility] Comment on above: Order Comment: Speci men Type: ARTERIAL BLOOD SPECIMENOrdering Facility: [facility] Address: [address] [place] [id number] Performed By: #### A LLBG ####[facility] [id number] [place] [address] [place] Carboxyhemoglobin (BldA) [Mass fraction] 1.0 % Normal 0.0-2.0 [facility] Comment on above: Order Comment: Speci men Type: ARTERIAL BLOOD SPECIMENOrdering Facility: [facility] Address: [address] [place] [address] Result Comment: Carb oxyhemoglobin Reference Range for Smokers: 2.0-8.0% Performed By: #### A LLBG ####[facility] [id number] [place] [address] [place] CO2 (Bld) [Partial pressure] 38 mm Hg Normal 36-46 [facility] Comment on above: Order Comment: Speci men Type: ARTERIAL BLOOD SPECIMENOrdering Facility: [facility] Address: [address] [place] [address] Performed By: #### A LLBG ####[facility] [id number] [place] [address] [place] CO2 [Moles/Vol] 22 mmol/L Normal 22-28 [facility] Comment on above: Order Comment: Speci men Type: ARTERIAL BLOOD SPECIMENOrdering Facility: [facility] Address: [address] [place] [address] Performed By: #### A LLBG ####[facility] [id number] [place] [address] [place] Glucose [Mass/Vol] 159 mg/dL High 60-105 [facility] Comment on above: Order Comment: Speci men Type: ARTERIAL BLOOD SPECIMENOrdering Facility: [facility] Address: [address] [place] [address] Performed By: #### A LLBG ####[facility] [id number] [place] [address] [place] HCO3 (Bld) [Moles/Vol] 21 mmol/L Low 22-26 [facility] Comment on above: Order Comment: Speci men Type: ARTERIAL BLOOD SPECIMENOrdering Facility: [facility] Address: [address] Performed By: #### A LLBG ####[facility] [id number] [place] [address] [place] Hematocrit (Bld) [Volume fraction] 28.8 % Low 36.0-46.0 [facility] Comment on above: Order Comment: Speci men Type: ARTERIAL BLOOD SPECIMENOrdering Facility: [facility] Address: [address] Performed By: #### A LLBG ####[facility] [id number] [address] [place] Hemoglobin (Bld) [Mass/Vol] 9.3 g/dL Low 11.5-15.5 [facility] Comment on above: Order Comment: Speci men Type: ARTERIAL BLOOD SPECIMENOrdering Facility: [facility] Address: [address] Performed By: #### A LLBG ####[facility] [id number] [address] [place] Lactate [Moles/Vol] 1.8 mmol/L Normal 0.5-2.2 [facility] Comment on above: Order Comment: Speci men Type: ARTERIAL BLOOD SPECIMENOrdering Facility: [facility] Address: [address] Performed By: #### A LLBG ####[facility] [id number] [place] [address] [place] LITERS 2 Liters/min Normal [facility] Comment on above: Order Comment: Speci men Type: ARTERIAL BLOOD SPECIMENOrdering Facility: [facility] Address: [address] Performed By: #### A LLBG ####[facility] [id number] [place] [address] [place] Methemoglobin (Bld) [Mass fraction] 1.5 % Normal 0.0-1.5 [facility] Comment on above: Order Comment: Speci men Type: ARTERIAL BLOOD SPECIMENOrdering Facility: [facility] Address: [address] [place] [address] Performed By: #### A LLBG ####[facility] [id number] [place] [address] [place] O2 THERAPY NC = Nasal Cannula Normal [facility] Comment on above: Order Comment: Speci men Type: ARTERIAL BLOOD SPECIMENOrdering Facility: [facility] Address: [address] [place] [address] Performed By: #### A LLBG ####[facility] [id number] [place] [address] [place] Oxygen (Bld) [Partial pressure] 99 mm Hg High 85-95 [facility] Comment on above: Order Comment: Speci men Type: ARTERIAL BLOOD SPECIMENOrdering Facility: [facility] Address: [address] [place] [address] Performed By: #### A LLBG ####[facility] [id number] [place] [address] [place] Oxyhemoglobin (BldA) [Mass fraction] 95 % Normal 95-98 [facility] Comment on above: Order Comment: Speci men Type: ARTERIAL BLOOD SPECIMENOrdering Facility: [facility] Address: [address] [place] [id number] Performed By: #### A LLBG ####[facility] [id number] [place] [address] [place] pH (Bld) 7.37 [pH] Normal 7.35-7.45 [facility] Comment on above: Order Comment: Speci men Type: ARTERIAL BLOOD SPECIMENOrdering Facility: [facility] Address: [address] Performed By: #### A LLBG ####[facility] [id number] [place] [address] [place] Potassium [Moles/Vol] 3.8 mmol/L Normal 3.5-5.0 [facility] Comment on above: Order Comment: Speci men Type: ARTERIAL BLOOD SPECIMENOrdering Facility: [facility] Address: [address] Performed By: #### A LLBG ####[facility] [id number] [place] [address] [place] Sodium [Moles/Vol] 133 mmol/L Low 136-144 [facility] Comment on above: Order Comment: Speci men Type: ARTERIAL BLOOD SPECIMENOrdering Facility: [facility] Address: [address] Performed By: #### A LLBG ####[facility] [id number] [place] [address] [place] Base deficit (BldA) [Moles/Vol] -4 mmol/L Low -2-0 [facility] Comment on above: Order Comment: Speci men Type: ARTERIAL BLOOD SPECIMENOrdering Facility: [facility] Address: [address] Performed By: #### A LLBG ####[facility] [id number] [place] [address] [place] Body temperature 98.6 [degF] Normal [facility] Comment on above: Order Comment: Speci men Type: ARTERIAL BLOOD SPECIMENOrdering Facility: [facility] Address: [address] Performed By: #### A LLBG ####[facility] [id number] [place] [address] [place] Calcium.ionized (Bld) [Mass/Vol] 1.25 mmol/L Normal 1.08-1.30 [facility] Comment on above: Order Comment: Speci men Type: ARTERIAL BLOOD SPECIMENOrdering Facility: [facility] Address: [address] [place] [address] Performed By: #### A LLBG ####[facility] [id number] [place] [address] [place] Calcium.ionized adjusted to pH 7.4 (BldA) [Moles/Vol] 1.23 mmol/L Normal 1.08-1.30 [facility] Comment on above: Order Comment: Speci men Type: ARTERIAL BLOOD SPECIMENOrdering Facility: [facility] Address: [address] [place] [address] Performed By: #### A LLBG ####[facility] [id number] [address] [place] Carboxyhemoglobin (BldA) [Mass fraction] 1.3 % Normal 0.0-2.0 [facility] Comment on above: Order Comment: Speci men Type: ARTERIAL BLOOD SPECIMENOrdering Facility: [facility] Address: [address] [place] [address] Result Comment: Carb oxyhemoglobin Reference Range for Smokers: 2.0-8.0% Performed By: #### A LLBG ####[facility] [id number] [place] [address] [place] CO2 (Bld) [Partial pressure] 35 mm Hg Low 36-46 [facility] Comment on above: Order Comment: Speci men Type: ARTERIAL BLOOD SPECIMENOrdering Facility: [facility] Address: [address] [place] [id number] Performed By: #### A LLBG ####[facility] [id number] [id number] [address] [place] CO2 [Moles/Vol] 21 mmol/L Low 22-28 [facility] Comment on above: Order Comment: Speci men Type: ARTERIAL BLOOD SPECIMENOrdering Facility: [facility] Address: [address] [place] [address] Performed By: #### A LLBG ####[facility] [id number] [place] [address] [place] Glucose [Mass/Vol] 148 mg/dL High 60-105 [facility] Comment on above: Order Comment: Speci men Type: ARTERIAL BLOOD SPECIMENOrdering Facility: [facility] Address: [address] [place] [address] Performed By: #### A LLBG ####[facility] [id number] [place] [address] [place] HCO3 (Bld) [Moles/Vol] 20 mmol/L Low 22-26 [facility] Comment on above: Order Comment: Speci men Type: ARTERIAL BLOOD SPECIMENOrdering Facility: [facility] Address: [address] [place] [address] Performed By: #### A LLBG ####[facility] [id number] [place] [address] [place] Hematocrit (Bld) [Volume fraction] 29.5 % Low 36.0-46.0 [facility] Comment on above: Order Comment: Speci men Type: ARTERIAL BLOOD SPECIMENOrdering Facility: [facility] Address: [address] [place] [id number] Performed By: #### A LLBG ####[facility] [id number] [place] [address] [place] Hemoglobin (Bld) [Mass/Vol] 9.5 g/dL Low 11.5-15.5 [facility] Comment on above: Order Comment: Speci men Type: ARTERIAL BLOOD SPECIMENOrdering Facility: [facility] Address: [address] Performed By: #### A LLBG ####[facility] [id number] [place] [address] [place] Lactate [Moles/Vol] 1.1 mmol/L Normal 0.5-2.2 [facility] Comment on above: Order Comment: Speci men Type: ARTERIAL BLOOD SPECIMENOrdering Facility: [facility] Address: [address] Performed By: #### A LLBG ####[facility] [id number] [place] [address] [place] LITERS 2 Liters/min Normal [facility] Comment on above: Order Comment: Speci men Type: ARTERIAL BLOOD SPECIMENOrdering Facility: [facility] Address: [address] Performed By: #### A LLBG ####[facility] [id number] [place] [address] [place] Methemoglobin (Bld) [Mass fraction] 1.5 % Normal 0.0-1.5 [facility] Comment on above: Order Comment: Speci men Type: ARTERIAL BLOOD SPECIMENOrdering Facility: [facility] Address: [address] Performed By: #### A LLBG ####[facility] [id number] [place] [address] [place] O2 THERAPY NC = Nasal Cannula Normal [facility] Comment on above: Order Comment: Speci men Type: ARTERIAL BLOOD SPECIMENOrdering Facility: [facility] Address: [address] [place] [address] Performed By: #### A LLBG ####[facility] [id number] [place] [address] [place] Oxygen (Bld) [Partial pressure] 111 mm Hg High 85-95 [facility] Comment on above: Order Comment: Speci men Type: ARTERIAL BLOOD SPECIMENOrdering Facility: [facility] Address: [address] Performed By: #### A LLBG ####[facility] [id number] [place] [address] [place] Oxyhemoglobin (BldA) [Mass fraction] 96 % Normal 95-98 [facility] Comment on above: Order Comment: Speci men Type: ARTERIAL BLOOD SPECIMENOrdering Facility: [facility] Address: [address] Performed By: #### A LLBG ####[facility] [id number] [place] [address] [place] pH (Bld) 7.37 [pH] Normal 7.35-7.45 [facility] Comment on above: Order Comment: Speci men Type: ARTERIAL BLOOD SPECIMENOrdering Facility: [facility] Address: [address] Performed By: #### A LLBG ####[facility] [id number] [place] [address] [place] Potassium [Moles/Vol] 4.3 mmol/L Normal 3.5-5.0 [facility] Comment on above: Order Comment: Speci men Type: ARTERIAL BLOOD SPECIMENOrdering Facility: [facility] Address: [address] [place] [address] Performed By: #### A LLBG ####[facility] [id number] [place] [address] [place] Sodium [Moles/Vol] 132 mmol/L Low 136-144 [facility] Comment on above: Order Comment: Speci men Type: ARTERIAL BLOOD SPECIMENOrdering Facility: [facility] Address: [address] Performed By: #### A LLBG ####[facility] [id number] [place] [address] [place] Base deficit (BldA) [Moles/Vol] -3 mmol/L Low -2-0 [facility] Comment on above: Order Comment: Speci men Type: ARTERIAL BLOOD SPECIMENOrdering Facility: [facility] Address: [address] [place] [address] Performed By: #### A LLBG ####[facility] [id number] [place] [address] [place] Body temperature 98.6 [degF] Normal [facility] Comment on above: Order Comment: Speci men Type: ARTERIAL BLOOD SPECIMENOrdering Facility: [facility] Address: [address] [place] [address] Performed By: #### A LLBG ####[facility] [id number] [place] [address] [place] Calcium.ionized (Bld) [Mass/Vol] 1.27 mmol/L Normal 1.08-1.30 [facility] Comment on above: Order Comment: Speci men Type: ARTERIAL BLOOD SPECIMENOrdering Facility: [facility] Address: [address] [place] [id number] Performed By: #### A LLBG ####[facility] [id number] [place] [address] [place] Calcium.ionized adjusted to pH 7.4 (BldA) [Moles/Vol] 1.27 mmol/L Normal 1.08-1.30 [facility] Comment on above: Order Comment: Speci men Type: ARTERIAL BLOOD SPECIMENOrdering Facility: [facility] Address: [address] [place] [id number] Performed By: #### A LLBG ####[facility] [id number] [place] [address] [place] Carboxyhemoglobin (BldA) [Mass fraction] 0.7 % Normal 0.0-2.0 [facility] Comment on above: Order Comment: Speci men Type: ARTERIAL BLOOD SPECIMENOrdering Facility: [facility] Address: [address] [place] [address] Result Comment: Carb oxyhemoglobin Reference Range for Smokers: 2.0-8.0% Performed By: #### A LLBG ####[facility] [id number] [place] [address] [place] CO2 (Bld) [Partial pressure] 34 mm Hg Low 36-46 [facility] Comment on above: Order Comment: Speci men Type: ARTERIAL BLOOD SPECIMENOrdering Facility: [facility] Address: [address] [place] [address] Performed By: #### A LLBG ####[facility] [id number] [place] [address] [place] CO2 [Moles/Vol] 22 mmol/L Normal 22-28 [facility] Comment on above: Order Comment: Speci men Type: ARTERIAL BLOOD SPECIMENOrdering Facility: [facility] Address: [address] [place] [address] Performed By: #### A LLBG ####[facility] [id number] [place] [address] [place] Glucose [Mass/Vol] 140 mg/dL High 60-105 [facility] Comment on above: Order Comment: Speci men Type: ARTERIAL BLOOD SPECIMENOrdering Facility: [facility] Address: [address] [place] [id number] Performed By: #### A LLBG ####[facility] [id number] [place] [address] [place] HCO3 (Bld) [Moles/Vol] 21 mmol/L Low 22-26 [facility] Comment on above: Order Comment: Speci men Type: ARTERIAL BLOOD SPECIMENOrdering Facility: [facility] Address: [address] Performed By: #### A LLBG ####[facility] [id number] [place] [address] [place] Hematocrit (Bld) [Volume fraction] 32.2 % Low 36.0-46.0 [facility] Comment on above: Order Comment: Speci men Type: ARTERIAL BLOOD SPECIMENOrdering Facility: [facility] Address: [address] Performed By: #### A LLBG ####[facility] [id number] [place] [address] [place] Hemoglobin (Bld) [Mass/Vol] 10.4 g/dL Low 11.5-15.5 [facility] Comment on above: Order Comment: Speci men Type: ARTERIAL BLOOD SPECIMENOrdering Facility: [facility] Address: [address] [place] [id number] Performed By: #### A LLBG ####[facility] [id number] [place] [address] [place] Lactate [Moles/Vol] 1.4 mmol/L Normal 0.5-2.2 [facility] Comment on above: Order Comment: Speci men Type: ARTERIAL BLOOD SPECIMENOrdering Facility: [facility] Address: [address] Performed By: #### A LLBG ####[facility] [id number] [place] [address] [place] LITERS 2 Liters/min Normal [facility] Comment on above: Order Comment: Speci men Type: ARTERIAL BLOOD SPECIMENOrdering Facility: [facility] Address: [address] Performed By: #### A LLBG ####[facility] [id number] [address] [place] Methemoglobin (Bld) [Mass fraction] 1.3 % Normal 0.0-1.5 [facility] Comment on above: Order Comment: Speci men Type: ARTERIAL BLOOD SPECIMENOrdering Facility: [facility] Address: [address] [place] [address] Performed By: #### A LLBG ####[facility] [id number] [place] [address] [place] O2 THERAPY NC = Nasal Cannula Normal [facility] Comment on above: Order Comment: Speci men Type: ARTERIAL BLOOD SPECIMENOrdering Facility: [facility] Address: [address] [place] [place] [address] Performed By: #### A LLBG ####[facility] [id number] [place] [address] [place] Oxygen (Bld) [Partial pressure] 129 mm Hg High 85-95 [facility] Comment on above: Order Comment: Speci men Type: ARTERIAL BLOOD SPECIMENOrdering Facility: [facility] Address: [address] Performed By: #### A LLBG ####[facility] [id number] [place] [address] [place] Oxyhemoglobin (BldA) [Mass fraction] 96 % Normal 95-98 [facility] Comment on above: Order Comment: Speci men Type: ARTERIAL BLOOD SPECIMENOrdering Facility: [facility] Address: [address] Performed By: #### A LLBG ####[facility] [id number] [place] [address] [place] pH (Bld) 7.41 [pH] Normal 7.35-7.45 [facility] Comment on above: Order Comment: Speci men Type: ARTERIAL BLOOD SPECIMENOrdering Facility: [facility] Address: [address] [place] [address] Performed By: #### A LLBG ####[facility] [id number] [place] [address] [place] Potassium [Moles/Vol] 4.5 mmol/L Normal 3.5-5.0 [facility] Comment on above: Order Comment: Speci men Type: ARTERIAL BLOOD SPECIMENOrdering Facility: [facility] Address: [address] Performed By: #### A LLBG ####[facility] [id number] [place] [address] [place] Sodium [Moles/Vol] 131 mmol/L Low 136-144 [facility] Comment on above: Order Comment: Speci men Type: ARTERIAL BLOOD SPECIMENOrdering Facility: [facility] Address: [address] Performed By: #### A LLBG ####[facility] [id number] [place] [address] [place] Base deficit (BldA) [Moles/Vol] -1 mmol/L Normal -2-0 [facility] Comment on above: Order Comment: Speci men Type: ARTERIAL BLOOD SPECIMENOrdering Facility: [facility] Address: [address] Performed By: #### A LLBG ####[facility] [id number] [place] [address] [place] Body temperature 99.86 [degF] Normal [facility] Comment on above: Order Comment: Speci men Type: ARTERIAL BLOOD SPECIMENOrdering Facility: [facility] Address: [address] Performed By: #### A LLBG ####[facility] [id number] [place] [address] [place] Calcium.ionized (Bld) [Mass/Vol] 1.27 mmol/L Normal 1.08-1.30 [facility] Comment on above: Order Comment: Speci men Type: ARTERIAL BLOOD SPECIMENOrdering Facility: [facility] Address: [address] [place] [address] Performed By: #### A LLBG ####[facility] [id number] [place] [address] [place] Calcium.ionized adjusted to pH 7.4 (BldA) [Moles/Vol] 1.27 mmol/L Normal 1.08-1.30 [facility] Comment on above: Order Comment: Speci men Type: ARTERIAL BLOOD SPECIMENOrdering Facility: [facility] Address: [address] [place] [address] Performed By: #### A LLBG ####[facility] [id number] [address] [place] Carboxyhemoglobin (BldA) [Mass fraction] 0.7 % Normal 0.0-2.0 [facility] Comment on above: Order Comment: Speci men Type: ARTERIAL BLOOD SPECIMENOrdering Facility: [facility] Address: [address] [place] [address] Result Comment: Carb oxyhemoglobin Reference Range for Smokers: 2.0-8.0% Performed By: #### A LLBG ####[facility] [id number] [place] [address] [place] CO2 (Bld) [Partial pressure] 38 mm Hg Normal 36-46 [facility] Comment on above: Order Comment: Speci men Type: ARTERIAL BLOOD SPECIMENOrdering Facility: [facility] Address: [address] [place] [address] Performed By: #### A LLBG ####[facility] [id number] [place] [address] [place] CO2 [Moles/Vol] 24 mmol/L Normal 22-28 [facility] Comment on above: Order Comment: Speci men Type: ARTERIAL BLOOD SPECIMENOrdering Facility: [facility] Address: [address] Performed By: #### A LLBG ####[facility] [id number] [place] [address] [place] CO2 adjusted to patient's actual temperature (Bld) [Partial pressure] 39 mmHg Normal 36-46 [facility] Comment on above: Order Comment: Speci men Type: ARTERIAL BLOOD SPECIMENOrdering Facility: [facility] Address: [address] Performed By: #### A LLBG ####[facility] [id number] [place] [address] [place] Glucose [Mass/Vol] 112 mg/dL High 60-105 [facility] Comment on above: Order Comment: Speci men Type: ARTERIAL BLOOD SPECIMENOrdering Facility: [facility] Address: [address] Performed By: #### A LLBG ####[facility] [id number] [place] [address] [place] HCO3 (Bld) [Moles/Vol] 23 mmol/L Normal 22-26 [facility] Comment on above: Order Comment: Speci men Type: ARTERIAL BLOOD SPECIMENOrdering Facility: [facility] Address: [address] Performed By: #### A LLBG ####[facility] [id number] [place] [address] [place] Hematocrit (Bld) [Volume fraction] 31.6 % Low 36.0-46.0 [facility] Comment on above: Order Comment: Speci men Type: ARTERIAL BLOOD SPECIMENOrdering Facility: [facility] Address: [address] Performed By: #### A LLBG ####[facility] [id number] [place] [address] [place] Hemoglobin (Bld) [Mass/Vol] 10.2 g/dL Low 11.5-15.5 [facility] Comment on above: Order Comment: Speci men Type: ARTERIAL BLOOD SPECIMENOrdering Facility: [facility] Address: [address] [place] [address] Performed By: #### A LLBG ####[facility] [id number] [place] [address] [place] Lactate [Moles/Vol] 1.6 mmol/L Normal 0.5-2.2 [facility] Comment on above: Order Comment: Speci men Type: ARTERIAL BLOOD SPECIMENOrdering Facility: [facility] Address: [address] [place] [address] Performed By: #### A LLBG ####[facility] [id number] [place] [address] [place] LITERS 2 Liters/min Normal [facility] Comment on above: Order Comment: Speci men Type: ARTERIAL BLOOD SPECIMENOrdering Facility: [facility] Address: [address] [place] [address] Performed By: #### A LLBG ####[facility] [id number] [place] [address] [place] Methemoglobin (Bld) [Mass fraction] 1.4 % Normal 0.0-1.5 [facility] Comment on above: Order Comment: Speci men Type: ARTERIAL BLOOD SPECIMENOrdering Facility: [facility] Address: [address] [place], [place] [id number] Performed By: #### A LLBG ####[facility] [id number] [place] [address] [place] O2 THERAPY NC = Nasal Cannula Normal [facility] Comment on above: Order Comment: Speci men Type: ARTERIAL BLOOD SPECIMENOrdering Facility: [facility] Address: [address] Performed By: #### A LLBG ####[facility] [id number] [place] [address] [place] Oxygen (Bld) [Partial pressure] 113 mm Hg High 85-95 [facility] Comment on above: Order Comment: Speci men Type: ARTERIAL BLOOD SPECIMENOrdering Facility: [facility] Address: [address] Performed By: #### A LLBG ####[facility] [id number] [place] [address] [place] Oxygen adjusted to patient's actual temperature (Bld) [Partial pressure] 117 mmHg High 85-95 [facility] Comment on above: Order Comment: Speci men Type: ARTERIAL BLOOD SPECIMENOrdering Facility: [facility] Address: [address] Performed By: #### A LLBG ####[facility] [id number] [place] [address] [place] Oxyhemoglobin (BldA) [Mass fraction] 96 % Normal 95-98 [facility] Comment on above: Order Comment: Speci men Type: ARTERIAL BLOOD SPECIMENOrdering Facility: [facility] Address: [address] Performed By: #### A LLBG ####[facility] [id number] [place] [address] [place] pH (Bld) 7.40 [pH] Normal 7.35-7.45 [facility] Comment on above: Order Comment: Speci men Type: ARTERIAL BLOOD SPECIMENOrdering Facility: [facility] Address: [address] Performed By: #### A LLBG ####[facility] [id number] [place] [address] [place] pH adjusted to patient's actual temperature (Bld) 7.39 Normal 7.35-7.45 [facility] Comment on above: Order Comment: Speci men Type: ARTERIAL BLOOD SPECIMENOrdering Facility: [facility] Address: [address] [place] [address] Performed By: #### A LLBG ####[facility] [id number] [place] [address] [place] Potassium [Moles/Vol] 4.3 mmol/L Normal 3.5-5.0 [facility] Comment on above: Order Comment: Speci men Type: ARTERIAL BLOOD SPECIMENOrdering Facility: [facility] Address: [address] [place] [address] Performed By: #### A LLBG ####[facility] [id number] [place] [address] [place] Sodium [Moles/Vol] 133 mmol/L Low 136-144 [facility] Comment on above: Order Comment: Speci men Type: ARTERIAL BLOOD SPECIMENOrdering Facility: [facility] Address: [address] [place] [address] Performed By: #### A LLBG ####[facility] [id number] [place] [address] [place] Base deficit (BldA) [Moles/Vol] -2 mmol/L Normal -2-0 [facility] Comment on above: Order Comment: Speci men Type: ARTERIAL BLOOD SPECIMENOrdering Facility: [facility] Address: [address] [place], [place] [id number] Performed By: #### A LLBG ####[facility] [id number] [place] [address] [place] Body temperature 98.6 [degF] Normal [facility] Comment on above: Order Comment: Speci men Type: ARTERIAL BLOOD SPECIMENOrdering Facility: [facility] Address: [address] [place] [address] Performed By: #### A LLBG ####[facility] [id number] [place] [address] [place] Calcium.ionized (Bld) [Mass/Vol] 1.24 mmol/L Normal 1.08-1.30 [facility] Comment on above: Order Comment: Speci men Type: ARTERIAL BLOOD SPECIMENOrdering Facility: [facility] Address: [address] [place] [address] Performed By: #### A LLBG ####[facility] [id number] [place] [address] [place] Calcium.ionized adjusted to pH 7.4 (BldA) [Moles/Vol] 1.23 mmol/L Normal 1.08-1.30 [facility] Comment on above: Order Comment: Speci men Type: ARTERIAL BLOOD SPECIMENOrdering Facility: [facility] Address: [address] [place] [address] Performed By: #### A LLBG ####[facility] [id number] [place] [address] [place] Carboxyhemoglobin (BldA) [Mass fraction] 0.7 % Normal 0.0-2.0 [facility] Comment on above: Order Comment: Speci men Type: ARTERIAL BLOOD SPECIMENOrdering Facility: [facility] Address: [address] [place], [place] [id number] Result Comment: Carb oxyhemoglobin Reference Range for Smokers: 2.0-8.0% Performed By: #### A LLBG ####[facility] [id number] [place] [address] [place] CO2 (Bld) [Partial pressure] 39 mm Hg Normal 36-46 [facility] Comment on above: Order Comment: Speci men Type: ARTERIAL BLOOD SPECIMENOrdering Facility: [facility] Address: [address] Performed By: #### A LLBG ####[facility] [id number] [place] [address] [place] CO2 [Moles/Vol] 24 mmol/L Normal 22-28 [facility] Comment on above: Order Comment: Speci men Type: ARTERIAL BLOOD SPECIMENOrdering Facility: [facility] Address: [address] Performed By: #### A LLBG ####[facility] [id number] [place] [address] [place] Glucose [Mass/Vol] 147 mg/dL High 60-105 [facility] Comment on above: Order Comment: Speci men Type: ARTERIAL BLOOD SPECIMENOrdering Facility: [facility] Address: [address] [place] [id number] Performed By: #### A LLBG ####[facility] [id number] [place] [address] [place] HCO3 (Bld) [Moles/Vol] 22 mmol/L Normal 22-26 [facility] Comment on above: Order Comment: Speci men Type: ARTERIAL BLOOD SPECIMENOrdering Facility: [facility] Address: [address] [place] [id number] Performed By: #### A LLBG ####[facility] [id number] [place] [address] [place] Hematocrit (Bld) [Volume fraction] 32.5 % Low 36.0-46.0 [facility] Comment on above: Order Comment: Speci men Type: ARTERIAL BLOOD SPECIMENOrdering Facility: [facility] Address: [address] [place] [id number] Performed By: #### A LLBG ####[facility] [id number] [place] [address] [place] Hemoglobin (Bld) [Mass/Vol] 10.5 g/dL Low 11.5-15.5 [facility] Comment on above: Order Comment: Speci men Type: ARTERIAL BLOOD SPECIMENOrdering Facility: [facility] Address: [address] [place] [address] Performed By: #### A LLBG ####[facility] [id number] [place] [address] [place] Lactate [Moles/Vol] 1.0 mmol/L Normal 0.5-2.2 [facility] Comment on above: Order Comment: Speci men Type: ARTERIAL BLOOD SPECIMENOrdering Facility: [facility] Address: [address] [place] [address] Performed By: #### A LLBG ####[facility] [id number] [place] [address] [place] LITERS 2 Liters/min Normal [facility] Comment on above: Order Comment: Speci men Type: ARTERIAL BLOOD SPECIMENOrdering Facility: [facility] Address: [address] [place] [id number] Performed By: #### A LLBG ####[facility] [id number] [place] [address] [place] Methemoglobin (Bld) [Mass fraction] 1.3 % Normal 0.0-1.5 [facility] Comment on above: Order Comment: Speci men Type: ARTERIAL BLOOD SPECIMENOrdering Facility: [facility] Address: [address] Performed By: #### A LLBG ####[facility] [id number] [place] [address] [place] O2 THERAPY NC = Nasal Cannula Normal [facility] Comment on above: Order Comment: Speci men Type: ARTERIAL BLOOD SPECIMENOrdering Facility: [facility] Address: [address] Performed By: #### A LLBG ####[facility] [id number] [place] [address] [place] Oxygen (Bld) [Partial pressure] 109 mm Hg High 85-95 [facility] Comment on above: Order Comment: Speci men Type: ARTERIAL BLOOD SPECIMENOrdering Facility: [facility] Address: [address] [place] [id number] Performed By: #### A LLBG ####[facility] [id number] [place] [address] [place] Oxyhemoglobin (BldA) [Mass fraction] 96 % Normal 95-98 [facility] Comment on above: Order Comment: Speci men Type: ARTERIAL BLOOD SPECIMENOrdering Facility: [facility] Address: [address] [place] [id number] Performed By: #### A LLBG ####[facility] [id number] [place] [address] [place] pH (Bld) 7.38 [pH] Normal 7.35-7.45 [facility] Comment on above: Order Comment: Speci men Type: ARTERIAL BLOOD SPECIMENOrdering Facility: [facility] Address: [address] [place] [address] Performed By: #### A LLBG ####[facility] [id number] [place] [address] [place] Potassium [Moles/Vol] 3.9 mmol/L Normal 3.5-5.0 [facility] Comment on above: Order Comment: Speci men Type: ARTERIAL BLOOD SPECIMENOrdering Facility: [facility] Address: [address] [place], [place] [address] Performed By: #### A LLBG ####[facility] [id number] [place] [address] [place] Sodium [Moles/Vol] 132 mmol/L Low 136-144 [facility] Comment on above: Order Comment: Speci men Type: ARTERIAL BLOOD SPECIMENOrdering Facility: [facility] Address: [address] [place] [address] Performed By: #### A LLBG ####[facility] [id number] [place] [address] [place] CBC panel Auto (Bld)on 06-27 Erythrocyte distribution width (RBC) [Ratio] 12.5 % Normal 11.5-15.0 [facility] Comment on above: Order Comment: Speci men Type: BLOOD SPECIMENOrdering Facility: [facility] Address: [address] [place] [address] Performed By: #### 5 8410-2 ####[facility] [id number] [address] [place] Hematocrit (Bld) [Volume fraction] 29.8 % Low 36.0-46.0 [facility] Comment on above: Order Comment: Speci men Type: BLOOD SPECIMENOrdering Facility: [facility] Address: [address] [place] [address] Performed By: #### 5 8410-2 ####[facility] [id number] [address] [place] Hemoglobin (Bld) [Mass/Vol] 10.3 g/dL Low 11.5-15.5 [facility] Comment on above: Order Comment: Speci men Type: BLOOD SPECIMENOrdering Facility: [facility] Address: [address] Performed By: #### 5 8410-2 ####[facility] [id number] [place] [address] [place] MCH (RBC) [Entitic mass] 30.9 pg Normal 26.0-34.0 [facility] Comment on above: Order Comment: Speci men Type: BLOOD SPECIMENOrdering Facility: [facility] Address: [address] Performed By: #### 5 8410-2 ####[facility] [id number] [address] [place] [facility] MCHC (RBC) [Mass/Vol] 34.6 g/dL Normal 30.5-36.0 [facility] Comment on above: Order Comment: Speci men Type: BLOOD SPECIMENOrdering Facility: [facility] Address: [address] Performed By: #### 5 8410-2 ####[facility] [id number] [place] [address] [place] MCV (RBC) [Entitic vol] 89.5 fL Normal 80.0-100.0 [facility] Comment on above: Order Comment: Speci men Type: BLOOD SPECIMENOrdering Facility: [facility] Address: [address] [place] [address] Performed By: #### 5 8410-2 ####[facility] [id number] [place] [address] [place] Nucleated RBC (Bld) [#/Vol] 10*3/uL Normal <0.01 [facility] Comment on above: Order Comment: Speci men Type: BLOOD SPECIMENOrdering Facility: [facility] Address: [address] [place] [address] Performed By: #### 5 8410-2 ####[facility] [id number] [place] [address] [place] Platelet mean volume (Bld) [Entitic vol] 10.6 fL Normal 9.0-12.7 [facility] Comment on above: Order Comment: Speci men Type: BLOOD SPECIMENOrdering Facility: [facility] Address: [address] [place] [address] Performed By: #### 5 8410-2 ####[facility] [id number] [place] [address] [place] Platelets (Bld) [#/Vol] 120 10*3/uL Low 150-400 [facility] Comment on above: Order Comment: Speci men Type: BLOOD SPECIMENOrdering Facility: [facility] Address: [address] [place] [address] Performed By: #### 5 8410-2 ####[facility] [id number] [place] [address] [place] RBC (Bld) [#/Vol] 3.33 10*6/uL Low 3.90-5.20 [facility] Comment on above: Order Comment: Speci men Type: BLOOD SPECIMENOrdering Facility: [facility] Address: [address] [place] [address] Performed By: #### 5 8410-2 ####[facility] [id number] [place] [address] [place] WBC (Bld) [#/Vol] 9.64 10*3/uL Normal 3.70-11.00 [facility] Comment on above: Order Comment: Speci men Type: BLOOD SPECIMENOrdering Facility: [facility] Address: [address] [place] [address] Performed By: #### 5 8410-2 ####[facility] [id number] [place] [address] [place] Comprehensive metabolic 2000 panelon 06-27-2022 Albumin [Mass/Vol] 3.4 g/dL Low 3.9-4.9 [facility] Comment on above: Order Comment: Speci men Type: BLOOD SPECIMENOrdering Facility: [facility] Address: [address] [place] [address] Result Comment: Resu lt rechecked. Performed By: #### 2 4323-8, INNA ####[facility] [id number] [place] [address] [place] ALP [Catalytic activity/Vol] 61 U/L Normal 34-123 [facility] Comment on above: Order Comment: Speci men Type: BLOOD SPECIMENOrdering Facility: [facility] Address: [address] [place] [address] Performed By: #### 2 4323-8, INNA ####[facility] [id number] [place] [address] [place] ALT [Catalytic activity/Vol] 17 U/L Normal 7-38 [facility] Comment on above: Order Comment: Speci men Type: BLOOD SPECIMENOrdering Facility: [facility] Address: [address] [place] [address] Performed By: #### 2 4323-8, INNA ####[facility] [id number] [place] [address] [place] Anion gap [Moles/Vol] 6 mmol/L Low 9-18 [facility] Comment on above: Order Comment: Speci men Type: BLOOD SPECIMENOrdering Facility: [facility] Address: [address] [place] [address] Performed By: #### 2 4323-8, INNA ####[facility] [id number] [place] [address] [place] AST [Catalytic activity/Vol] 51 U/L High 13-35 [facility] Comment on above: Order Comment: Speci men Type: BLOOD SPECIMENOrdering Facility: [facility] Address: [address] [place], [place] [id number] Performed By: #### 2 4323-8, INNA ####[facility] [id number] [place] [address] [place] Bilirubin [Mass/Vol] 1.4 mg/dL High 0.2-1.3 [facility] Comment on above: Order Comment: Speci men Type: BLOOD SPECIMENOrdering Facility: [facility] Address: [address] Performed By: #### 2 4323-8, INNA ####[facility] [id number] [place] [address] [place] Calcium [Mass/Vol] 9.4 mg/dL Normal 8.5-10.2 [facility] Comment on above: Order Comment: Speci men Type: BLOOD SPECIMENOrdering Facility: [facility] Address: [address] Performed By: #### 2 4323-8, INNA ####[facility] [id number] [place] [address] [place] Chloride [Moles/Vol] 107 mmol/L High 97-105 [facility] Comment on above: Order Comment: Speci men Type: BLOOD SPECIMENOrdering Facility: [facility] Address: [address] Performed By: #### 2 4323-8, INNA ####[facility] [id number] [place] [address] [place] CO2 [Moles/Vol] 21 mmol/L Low 22-30 [facility] Comment on above: Order Comment: Speci men Type: BLOOD SPECIMENOrdering Facility: [facility] Address: [address] [place] [address] Performed By: #### 2 4323-8, INNA ####[facility] [id number] [place] [address] [place] Creatinine [Mass/Vol] 0.46 mg/dL Low 0.58-0.96 [facility] Comment on above: Order Comment: Speci men Type: BLOOD SPECIMENOrdering Facility: [facility] Address: [address] Performed By: #### 2 4323-8, INNA ####[facility] [id number] [place] [address] [place] ESTIMATED GLOMERULAR FILTRATION RATE 110 mL/min/1.73m??? Normal >=60 [facility] Comment on above: Order Comment: Garrett michelle Type: BLOOD SPECIMENOrdering Facility: [facility] Address: [address] [place] [address] Result Comment: Lola mated Glomerular Filtration Rate (eGFR) is calculated using the 2020 CKD-EPI creatinine equation. This equation utilizes serum creatinine, sex, and age as parameters. The creatinine assay has traceable calibration to isotope dilution-mass spectrometry. Refer to KDIGO guidelines for clinical interpretation. In patients with unstable renal function, e.g. those with acute kidney injury, the eGFR may not accurately reflect actual GFR. Performed By: #### 2 4323-8, INNA ####[facility] [id number] [place] [address] [place] Glucose [Mass/Vol] 136 mg/dL High 74-99 [facility] Comment on above: Order Comment: Garrett michelle Type: BLOOD SPECIMENOrdering Facility: [facility] Address: [address] [place] [address] Result Comment: The [place] Diabetes Association (ADA) provides guidance for cutoff values for fasting glucose and random glucose. The ADA defines fasting as no caloric intake for at least 8 hours. Fasting plasma glucose results between 100 to 125 mg/dL indicate increased risk for diabetes (prediabetes).Fasting plasma glucose results greater than or equal to 126 mg/dL meet the criteria for diagnosis of diabetes. In the absence of unequivocal hyperglycemia, results should be confirmed by repeat testing. In a patient with classic symptoms of hyperglycemia or hyperglycemic crisis, random plasma glucose results greater than or equal to 200 mg/dL meet the criteria for diagnosis of diabetes.Reference: Standards of Medical Care in Diabetes 2016, [place] [employer]. Diabetes Care. 2016.39(Suppl 1). Performed By: #### 2 4323-8, INNA ####[facility] [id number] [place] [address] [place] Potassium [Moles/Vol] 4.1 mmol/L Normal 3.7-5.1 [facility] Comment on above: Order Comment: Speci men Type: BLOOD SPECIMENOrdering Facility: [facility] Address: [address] [place] [address] Performed By: #### 2 4323-8, INNA ####[facility] [id number] [place] [address] [place] Protein [Mass/Vol] 5.2 g/dL Low 6.3-8.0 [facility] Comment on above: Order Comment: Speci men Type: BLOOD SPECIMENOrdering Facility: [facility] Address: [address] [place] [address] Performed By: #### 2 4323-8, INNA ####[facility] [id number] [place] [address] [place] Sodium [Moles/Vol] 134 mmol/L Low 136-144 [facility] Comment on above: Order Comment: Speci men Type: BLOOD SPECIMENOrdering Facility: [facility] Address: [address] [place] [address] Performed By: #### 2 4323-8, INNA ####[facility] [id number] [place] [address] [place] Urea nitrogen [Mass/Vol] 15 mg/dL Normal 7-21 [facility] Comment on above: Order Comment: Speci men Type: BLOOD SPECIMENOrdering Facility: [facility] Address: [address] [place] [address] Performed By: #### 2 4323-8, INNA ####[facility] [id number] [place] [address] [place] TROPONIN Ton 06-27-2022 Troponin T.cardiac [Mass/Vol] 0.570 ug/L High 0.000-0.02 9 [facility] Comment on above: Order Comment: Speci men Type: BLOOD SPECIMENOrdering Facility: [facility] Address: [address] Performed By: #### 2 4323-8, INNA ####[facility] [id number] [place] [address] [place] XR CHEST 1V FRONTAL PORTon 1 08-28-2021 XR CHEST 1V FRONTAL PORT Normal [facility] ANES POSTPROC EVALon 022 ANES POSTPROC EVAL Normal [facility] ANES PRE-OPon 06-26-2022 ANES PRE-OP Normal [facility] ARTERIAL BLOOD GASESon 06-26 Base deficit (BldA) [Moles/Vol] -3 mmol/L Low -2-0 [facility] Comment on above: Order Comment: Speci men Type: ARTERIAL BLOOD SPECIMENOrdering Facility: [facility] Address: [address] [place], [place] [id number] Performed By: #### A LLBG ####[facility] [id number] [place] [address] [place] Body temperature 98.6 [degF] Normal [facility] Comment on above: Order Comment: Speci men Type: ARTERIAL BLOOD SPECIMENOrdering Facility: [facility] Address: [address] [place], [place] [id number] Performed By: #### A LLBG ####[facility] [id number] [place] [address] [place] Calcium.ionized (Bld) [Mass/Vol] 1.23 mmol/L Normal 1.08-1.30 [facility] Comment on above: Order Comment: Speci men Type: ARTERIAL BLOOD SPECIMENOrdering Facility: [facility] Address: [address] [place], [place] [id number] Performed By: #### A LLBG ####[facility] [id number] [place] [address] [place] Calcium.ionized adjusted to pH 7.4 (BldA) [Moles/Vol] 1.20 mmol/L Normal 1.08-1.30 [facility] Comment on above: Order Comment: Speci men Type: ARTERIAL BLOOD SPECIMENOrdering Facility: [facility] Address: [address] [place] [address] Performed By: #### A LLBG ####[facility] [id number] [place] [address] [place] Carboxyhemoglobin (BldA) [Mass fraction] 1.7 % Normal 0.0-2.0 [facility] Comment on above: Order Comment: Speci men Type: ARTERIAL BLOOD SPECIMENOrdering Facility: [facility] Address: [address] [place] [address] Result Comment: Carb oxyhemoglobin Reference Range for Smokers: 2.0-8.0% Performed By: #### A LLBG ####[facility] [id number] [place] [address] [place] CO2 (Bld) [Partial pressure] 41 mm Hg Normal 36-46 [facility] Comment on above: Order Comment: Speci men Type: ARTERIAL BLOOD SPECIMENOrdering Facility: [facility] Address: [address] [place] [id number] Performed By: #### A LLBG ####[facility] [id number] [place] [address] [place] CO2 [Moles/Vol] 23 mmol/L Normal 22-28 [facility] Comment on above: Order Comment: Speci men Type: ARTERIAL BLOOD SPECIMENOrdering Facility: [facility] Address: [address] [place] [id number] Performed By: #### A LLBG ####[facility] [id number] [place] [address] [place] Glucose [Mass/Vol] 115 mg/dL High 60-105 [facility] Comment on above: Order Comment: Speci men Type: ARTERIAL BLOOD SPECIMENOrdering Facility: [facility] Address: [address] [place] [address] Performed By: #### A LLBG ####[facility] [id number] [place] [address] [place] HCO3 (Bld) [Moles/Vol] 22 mmol/L Normal 22-26 [facility] Comment on above: Order Comment: Speci men Type: ARTERIAL BLOOD SPECIMENOrdering Facility: [facility] Address: [address] Performed By: #### A LLBG ####[facility] [id number] [place] [address] [place] Hematocrit (Bld) [Volume fraction] 31.2 % Low 36.0-46.0 [facility] Comment on above: Order Comment: Speci men Type: ARTERIAL BLOOD SPECIMENOrdering Facility: [facility] Address: [address] Performed By: #### A LLBG ####[facility] [id number] [place] [address] [place] Hemoglobin (Bld) [Mass/Vol] 10.1 g/dL Low 11.5-15.5 [facility] Comment on above: Order Comment: Speci men Type: ARTERIAL BLOOD SPECIMENOrdering Facility: [facility] Address: [address] Performed By: #### A LLBG ####[facility] [id number] [place] [address] [place] Lactate [Moles/Vol] 1.7 mmol/L Normal 0.5-2.2 [facility] Comment on above: Order Comment: Speci men Type: ARTERIAL BLOOD SPECIMENOrdering Facility: [facility] Address: [address] Performed By: #### A LLBG ####[facility] [id number] [place] [address] [place] LITERS 3 Liters/min Normal [facility] Comment on above: Order Comment: Speci men Type: ARTERIAL BLOOD SPECIMENOrdering Facility: [facility] Address: [address] [place] [address] Performed By: #### A LLBG ####[facility] [id number] [place] [address] [place] Methemoglobin (Bld) [Mass fraction] 1.7 % High 0.0-1.5 [facility] Comment on above: Order Comment: Speci men Type: ARTERIAL BLOOD SPECIMENOrdering Facility: [facility] Address: [address] Performed By: #### A LLBG ####[facility] [id number] [place] [address] [place] O2 THERAPY NC = Nasal Cannula Normal [facility] Comment on above: Order Comment: Speci men Type: ARTERIAL BLOOD SPECIMENOrdering Facility: [facility] Address: [address] [place] [address] Performed By: #### A LLBG ####[facility] [id number] [place] [address] [place] Oxygen (Bld) [Partial pressure] 133 mm Hg High 85-95 [facility] Comment on above: Order Comment: Speci men Type: ARTERIAL BLOOD SPECIMENOrdering Facility: [facility] Address: [address] [place] [address] Performed By: #### A LLBG ####[facility] [id number] [place] [address] [place] Oxyhemoglobin (BldA) [Mass fraction] 95 % Normal 95-98 [facility] Comment on above: Order Comment: Speci men Type: ARTERIAL BLOOD SPECIMENOrdering Facility: [facility] Address: [address] Performed By: #### A LLBG ####[facility] [id number] [place] [address] [place] pH (Bld) 7.35 [pH] Normal 7.35-7.45 [facility] Comment on above: Order Comment: Speci men Type: ARTERIAL BLOOD SPECIMENOrdering Facility: [facility] Address: [address] Performed By: #### A LLBG ####[facility] [id number] [place] [address] [place] Potassium [Moles/Vol] 4.0 mmol/L Normal 3.5-5.0 [facility] Comment on above: Order Comment: Speci men Type: ARTERIAL BLOOD SPECIMENOrdering Facility: [facility] Address: [address] [place], [place] [id number] Performed By: #### A LLBG ####[facility] [id number] [place] [address] [place] Sodium [Moles/Vol] 135 mmol/L Low 136-144 [facility] Comment on above: Order Comment: Speci men Type: ARTERIAL BLOOD SPECIMENOrdering Facility: [facility] Address: [address] Performed By: #### A LLBG ####[facility] [id number] [place] [address] [place] Base deficit (BldA) [Moles/Vol] -2 mmol/L Normal -2-0 [facility] Comment on above: Order Comment: Speci men Type: ARTERIAL BLOOD SPECIMENOrdering Facility: [facility] Address: [address] [place], [place] [id number] Performed By: #### A LLBG ####[facility] [id number] [place] [address] [place] Body temperature 98.6 [degF] Normal [facility] Comment on above: Order Comment: Speci men Type: ARTERIAL BLOOD SPECIMENOrdering Facility: [facility] Address: [address] [place] [address] Performed By: #### A LLBG ####[facility] [id number] [place] [address] [place] Calcium.ionized (Bld) [Mass/Vol] 1.24 mmol/L Normal 1.08-1.30 [facility] Comment on above: Order Comment: Speci men Type: ARTERIAL BLOOD SPECIMENOrdering Facility: [facility] Address: [address] [place] [address] Performed By: #### A LLBG ####[facility] [id number] [place] [address] [place] Calcium.ionized adjusted to pH 7.4 (BldA) [Moles/Vol] 1.24 mmol/L Normal 1.08-1.30 [facility] Comment on above: Order Comment: Speci men Type: ARTERIAL BLOOD SPECIMENOrdering Facility: [facility] Address: [address] [place] [address] Performed By: #### A LLBG ####[facility] [id number] [place] [address] [place] Carboxyhemoglobin (BldA) [Mass fraction] 1.1 % Normal 0.0-2.0 [facility] Comment on above: Order Comment: Speci men Type: ARTERIAL BLOOD SPECIMENOrdering Facility: [facility] Address: [address] [place] [address] Result Comment: Carb oxyhemoglobin Reference Range for Smokers: 2.0-8.0% Performed By: #### A LLBG ####[facility] [id number] [place] [address] [place] CO2 (Bld) [Partial pressure] 35 mm Hg Low 36-46 [facility] Comment on above: Order Comment: Speci men Type: ARTERIAL BLOOD SPECIMENOrdering Facility: [facility] Address: [address] Performed By: #### A LLBG ####[facility] [id number] [place] [address] [place] CO2 [Moles/Vol] 22 mmol/L Normal 22-28 [facility] Comment on above: Order Comment: Speci men Type: ARTERIAL BLOOD SPECIMENOrdering Facility: [facility] Address: [address] Performed By: #### A LLBG ####[facility] [id number] [place] [address] [place] Glucose [Mass/Vol] 162 mg/dL High 60-105 [facility] Comment on above: Order Comment: Speci men Type: ARTERIAL BLOOD SPECIMENOrdering Facility: [facility] Address: [address] Performed By: #### A LLBG ####[facility] [id number] [place] [address] [place] HCO3 (Bld) [Moles/Vol] 21 mmol/L Low 22-26 [facility] Comment on above: Order Comment: Speci men Type: ARTERIAL BLOOD SPECIMENOrdering Facility: [facility] Address: [address] Performed By: #### A LLBG ####[facility] [id number] [place] [address] [place] Hematocrit (Bld) [Volume fraction] 31.8 % Low 36.0-46.0 [facility] Comment on above: Order Comment: Speci men Type: ARTERIAL BLOOD SPECIMENOrdering Facility: [facility] Address: [address] Performed By: #### A LLBG ####[facility] [id number] [place] [address] [place] Hemoglobin (Bld) [Mass/Vol] 10.3 g/dL Low 11.5-15.5 [facility] Comment on above: Order Comment: Speci men Type: ARTERIAL BLOOD SPECIMENOrdering Facility: [facility] Address: [address] [place] [address] Performed By: #### A LLBG ####[facility] [id number] [place] [address] [place] Lactate [Moles/Vol] 1.6 mmol/L Normal 0.5-2.2 [facility] Comment on above: Order Comment: Speci men Type: ARTERIAL BLOOD SPECIMENOrdering Facility: [facility] Address: [address] [place] [address] Performed By: #### A LLBG ####[facility] [id number] [address] [place] Methemoglobin (Bld) [Mass fraction] 1.2 % Normal 0.0-1.5 [facility] Comment on above: Order Comment: Speci men Type: ARTERIAL BLOOD SPECIMENOrdering Facility: [facility] Address: [address] [place], [place] [id number] Performed By: #### A LLBG ####[facility] [id number] [place] [address] [place] O2 THERAPY NC = Nasal Cannula Normal [facility] Comment on above: Order Comment: Speci men Type: ARTERIAL BLOOD SPECIMENOrdering Facility: [facility] Address: [address] [place], [place] [id number] Performed By: #### A LLBG ####[facility] [id number] [place] [address] [place] Oxygen (Bld) [Partial pressure] 105 mm Hg High 85-95 [facility] Comment on above: Order Comment: Speci men Type: ARTERIAL BLOOD SPECIMENOrdering Facility: [facility] Address: [address] Performed By: #### A LLBG ####[facility] [id number] [place] [address] [place] Oxyhemoglobin (BldA) [Mass fraction] 96 % Normal 95-98 [facility] Comment on above: Order Comment: Speci men Type: ARTERIAL BLOOD SPECIMENOrdering Facility: [facility] Address: [address] Performed By: #### A LLBG ####[facility] [id number] [place] [address] [place] pH (Bld) 7.40 [pH] Normal 7.35-7.45 [facility] Comment on above: Order Comment: Speci men Type: ARTERIAL BLOOD SPECIMENOrdering Facility: [facility] Address: [address] Performed By: #### A LLBG ####[facility] [id number] [place] [address] [place] Potassium [Moles/Vol] 3.8 mmol/L Normal 3.5-5.0 [facility] Comment on above: Order Comment: Speci men Type: ARTERIAL BLOOD SPECIMENOrdering Facility: [facility] Address: [address] Performed By: #### A LLBG ####[facility] [id number] [place] [address] [place] Sodium [Moles/Vol] 135 mmol/L Low 136-144 [facility] Comment on above: Order Comment: Speci men Type: ARTERIAL BLOOD SPECIMENOrdering Facility: [facility] Address: [address] Performed By: #### A LLBG ####[facility] [id number] [place] [address] [place] Base deficit (BldA) [Moles/Vol] -3 mmol/L Low -2-0 [facility] Comment on above: Order Comment: Speci men Type: ARTERIAL BLOOD SPECIMENOrdering Facility: [facility] Address: [address] [place] [address] Performed By: #### A LLBG ####[facility] [id number] [place] [address] [place] Body temperature 97.7 [degF] Normal [facility] Comment on above: Order Comment: Speci men Type: ARTERIAL BLOOD SPECIMENOrdering Facility: [facility] Address: [address] [place] [address] Performed By: #### A LLBG ####[facility] [id number] [address] [place] Calcium.ionized (Bld) [Mass/Vol] 1.20 mmol/L Normal 1.08-1.30 [facility] Comment on above: Order Comment: Speci men Type: ARTERIAL BLOOD SPECIMENOrdering Facility: [facility] Address: [address] [place] [id number] Performed By: #### A LLBG ####[facility] [id number] [place] [address] [place] Calcium.ionized adjusted to pH 7.4 (BldA) [Moles/Vol] 1.19 mmol/L Normal 1.08-1.30 [facility] Comment on above: Order Comment: Speci men Type: ARTERIAL BLOOD SPECIMENOrdering Facility: [facility] Address: [address] [place], [place] [id number] Performed By: #### A LLBG ####[facility] [id number] [address] [place] Carboxyhemoglobin (BldA) [Mass fraction] 1.2 % Normal 0.0-2.0 [facility] Comment on above: Order Comment: Speci men Type: ARTERIAL BLOOD SPECIMENOrdering Facility: [facility] Address: [address] [place] [address] Result Comment: Carb oxyhemoglobin Reference Range for Smokers: 2.0-8.0% Performed By: #### A LLBG ####[facility] [id number] [place] [address] [place] CO2 (Bld) [Partial pressure] 37 mm Hg Normal 36-46 [facility] Comment on above: Order Comment: Speci men Type: ARTERIAL BLOOD SPECIMENOrdering Facility: [facility] Address: [address] [place] [address] Performed By: #### A LLBG ####[facility] [id number] [place] [address] [place] CO2 [Moles/Vol] 23 mmol/L Normal 22-28 [facility] Comment on above: Order Comment: Speci men Type: ARTERIAL BLOOD SPECIMENOrdering Facility: [facility] Address: [address] [place] [address] Performed By: #### A LLBG ####[facility] [id number] [place] [address] [place] CO2 adjusted to patient's actual temperature (Bld) [Partial pressure] 36 mmHg Normal 36-46 [facility] Comment on above: Order Comment: Speci men Type: ARTERIAL BLOOD SPECIMENOrdering Facility: [facility] Address: [address] [place] [address] Performed By: #### A LLBG ####[facility] [id number] [place] [address] [place] Glucose [Mass/Vol] 170 mg/dL High 60-105 [facility] Comment on above: Order Comment: Speci men Type: ARTERIAL BLOOD SPECIMENOrdering Facility: [facility] Address: [address] Performed By: #### A LLBG ####[facility] [id number] [place] [address] [place] HCO3 (Bld) [Moles/Vol] 21 mmol/L Low 22-26 [facility] Comment on above: Order Comment: Speci men Type: ARTERIAL BLOOD SPECIMENOrdering Facility: [facility] Address: [address] Performed By: #### A LLBG ####[facility] [id number] [place] [address] [place] Hematocrit (Bld) [Volume fraction] 32.9 % Low 36.0-46.0 [facility] Comment on above: Order Comment: Speci men Type: ARTERIAL BLOOD SPECIMENOrdering Facility: [facility] Address: [address] [place], [place] [id number] Performed By: #### A LLBG ####[facility] [id number] [place] [address] [place] Hemoglobin (Bld) [Mass/Vol] 10.7 g/dL Low 11.5-15.5 [facility] Comment on above: Order Comment: Speci men Type: ARTERIAL BLOOD SPECIMENOrdering Facility: [facility] Address: [address] Performed By: #### A LLBG ####[facility] [id number] [place] [address] [place] Lactate [Moles/Vol] 1.9 mmol/L Normal 0.5-2.2 [facility] Comment on above: Order Comment: Speci men Type: ARTERIAL BLOOD SPECIMENOrdering Facility: [facility] Address: [address] [place], [place] [id number] Performed By: #### A LLBG ####[facility] [id number] [place] [address] [place] Methemoglobin (Bld) [Mass fraction] 1.5 % Normal 0.0-1.5 [facility] Comment on above: Order Comment: Speci men Type: ARTERIAL BLOOD SPECIMENOrdering Facility: [facility] Address: [address] [place] [address] Performed By: #### A LLBG ####[facility] [id number] [place] [address] [place] O2 THERAPY Ventilator Normal [facility] Comment on above: Order Comment: Speci men Type: ARTERIAL BLOOD SPECIMENOrdering Facility: [facility] Address: [address] Performed By: #### A LLBG ####[facility] [id number] [place] [address] [place] Oxygen (Bld) [Partial pressure] 137 mm Hg High 85-95 [facility] Comment on above: Order Comment: Speci men Type: ARTERIAL BLOOD SPECIMENOrdering Facility: [facility] Address: [address] [place] [address] Performed By: #### A LLBG ####[facility] [id number] [place] [address] [place] Oxygen adjusted to patient's actual temperature (Bld) [Partial pressure] 135 mmHg High 85-95 [facility] Comment on above: Order Comment: Speci men Type: ARTERIAL BLOOD SPECIMENOrdering Facility: [facility] Address: [address] [place] [address] Performed By: #### A LLBG ####[facility] [id number] [place] [address] [place] Oxyhemoglobin (BldA) [Mass fraction] 96 % Normal 95-98 [facility] Comment on above: Order Comment: Speci men Type: ARTERIAL BLOOD SPECIMENOrdering Facility: [facility] Address: [address] Performed By: #### A LLBG ####[facility] [id number] [place] [address] [place] pH (Bld) 7.38 [pH] Normal 7.35-7.45 [facility] Comment on above: Order Comment: Speci men Type: ARTERIAL BLOOD SPECIMENOrdering Facility: [facility] Address: [address] Performed By: #### A LLBG ####[facility] [id number] [place] [address] [place] pH adjusted to patient's actual temperature (Bld) 7.39 Normal 7.35-7.45 [facility] Comment on above: Order Comment: Speci men Type: ARTERIAL BLOOD SPECIMENOrdering Facility: [facility] Address: [address] [place] [address] Performed By: #### A LLBG ####[facility] [id number] [place] [address] [place] Potassium [Moles/Vol] 4.0 mmol/L Normal 3.5-5.0 [facility] Comment on above: Order Comment: Speci men Type: ARTERIAL BLOOD SPECIMENOrdering Facility: [facility] Address: [address] [place] [id number] Performed By: #### A LLBG ####[facility] [id number] [place] [address] [place] Sodium [Moles/Vol] 134 mmol/L Low 136-144 [facility] Comment on above: Order Comment: Speci men Type: ARTERIAL BLOOD SPECIMENOrdering Facility: [facility] Address: [address] Performed By: #### A LLBG ####[facility] [id number] [address] [place] Base deficit (BldA) [Moles/Vol] -4 mmol/L Low -2-0 [facility] Comment on above: Order Comment: Speci men Type: ARTERIAL BLOOD SPECIMENOrdering Facility: [facility] Address: [address] [place] [address] Performed By: #### A LLBG ####[facility] [id number] [place] [address] [place] Calcium.ionized (Bld) [Mass/Vol] 1.17 mmol/L Normal 1.08-1.30 [facility] Comment on above: Order Comment: Speci men Type: ARTERIAL BLOOD SPECIMENOrdering Facility: [facility] Address: [address] [place] [address] Performed By: #### A LLBG ####[facility] [id number] [address] STATES OF [facility] Calcium.ionized adjusted to pH 7.4 (BldA) [Moles/Vol] 1.13 mmol/L Normal 1.08-1.30 [facility] Comment on above: Order Comment: Speci men Type: ARTERIAL BLOOD SPECIMENOrdering Facility: [facility] Address: [address] [place] [id number] Performed By: #### A LLBG ####[facility] [id number] [place] [address] [place] Carboxyhemoglobin (BldA) [Mass fraction] 0.8 % Normal 0.0-2.0 [facility] Comment on above: Order Comment: Speci men Type: ARTERIAL BLOOD SPECIMENOrdering Facility: [facility] Address: [address] [place] [id number] Result Comment: Carb oxyhemoglobin Reference Range for Smokers: 2.0-8.0% Performed By: #### A LLBG ####[facility] [id number] [place] [address] [place] CO2 (Bld) [Partial pressure] 40 mm Hg Normal 36-46 [facility] Comment on above: Order Comment: Speci men Type: ARTERIAL BLOOD SPECIMENOrdering Facility: [facility] Address: [address] Performed By: #### A LLBG ####[facility] [id number] [place] [address] [place] CO2 [Moles/Vol] 22 mmol/L Normal 22-28 [facility] Comment on above: Order Comment: Speci men Type: ARTERIAL BLOOD SPECIMENOrdering Facility: [facility] Address: [address] Performed By: #### A LLBG ####[facility] [id number] [place] [address] [place] CO2 adjusted to patient's actual temperature (Bld) [Partial pressure] 40 mmHg Normal 36-46 [facility] Comment on above: Order Comment: Speci men Type: ARTERIAL BLOOD SPECIMENOrdering Facility: [facility] Address: [address] [place] [id number] Performed By: #### A LLBG ####[facility] [id number] [place] [address] [place] Glucose [Mass/Vol] 177 mg/dL High 60-105 [facility] Comment on above: Order Comment: Speci men Type: ARTERIAL BLOOD SPECIMENOrdering Facility: [facility] Address: [address] Performed By: #### A LLBG ####[facility] [id number] [place] [address] [place] HCO3 (Bld) [Moles/Vol] 21 mmol/L Low 22-26 [facility] Comment on above: Order Comment: Speci men Type: ARTERIAL BLOOD SPECIMENOrdering Facility: [facility] Address: [address] Performed By: #### A LLBG ####[facility] [id number] [address] [place] Hematocrit (Bld) [Volume fraction] 29.8 % Low 36.0-46.0 [facility] Comment on above: Order Comment: Speci men Type: ARTERIAL BLOOD SPECIMENOrdering Facility: [facility] Address: [address] Performed By: #### A LLBG ####[facility] [id number] [place] [address] [place] Hemoglobin (Bld) [Mass/Vol] 9.6 g/dL Low 11.5-15.5 [facility] Comment on above: Order Comment: Speci men Type: ARTERIAL BLOOD SPECIMENOrdering Facility: [facility] Address: [address] Performed By: #### A LLBG ####[facility] [id number] [place] [address] [place] Lactate [Moles/Vol] 2.7 mmol/L High 0.5-2.2 [facility] Comment on above: Order Comment: Speci men Type: ARTERIAL BLOOD SPECIMENOrdering Facility: [facility] Address: [address] [place] [address] Performed By: #### A LLBG ####[facility] [id number] [place] [address] [place] Methemoglobin (Bld) [Mass fraction] 1.5 % Normal 0.0-1.5 [facility] Comment on above: Order Comment: Speci men Type: ARTERIAL BLOOD SPECIMENOrdering Facility: [facility] Address: [address] Performed By: #### A LLBG ####[facility] [id number] [place] [id number] [place] Oxygen (Bld) [Partial pressure] 147 mm Hg High 85-95 [facility] Comment on above: Order Comment: Speci men Type: ARTERIAL BLOOD SPECIMENOrdering Facility: [facility] Address: [address] [place] [address] Performed By: #### A LLBG ####[facility] [id number] [place] [address] [place] Oxygen adjusted to patient's actual temperature (Bld) [Partial pressure] 147 mmHg High 85-95 [facility] Comment on above: Order Comment: Speci men Type: ARTERIAL BLOOD SPECIMENOrdering Facility: [facility] Address: [address] [place] [address] Performed By: #### A LLBG ####[facility] [id number] [place] [address] [place] Oxyhemoglobin (BldA) [Mass fraction] 96 % Normal 95-98 [facility] Comment on above: Order Comment: Speci men Type: ARTERIAL BLOOD SPECIMENOrdering Facility: [facility] Address: [address] [place] [id number] Performed By: #### A LLBG ####[facility] [id number] [place] [address] [place] pH (Bld) 7.34 [pH] Low 7.35-7.45 [facility] Comment on above: Order Comment: Speci men Type: ARTERIAL BLOOD SPECIMENOrdering Facility: [facility] Address: [address] [place] [id number] Performed By: #### A LLBG ####[facility] [id number] [place] [address] [place] pH adjusted to patient's actual temperature (Bld) 7.34 Low 7.35-7.45 [facility] Comment on above: Order Comment: Speci men Type: ARTERIAL BLOOD SPECIMENOrdering Facility: [facility] Address: [address] Performed By: #### A LLBG ####[facility] [id number] [place] [address] [place] Potassium [Moles/Vol] 3.8 mmol/L Normal 3.5-5.0 [facility] Comment on above: Order Comment: Speci men Type: ARTERIAL BLOOD SPECIMENOrdering Facility: [facility] Address: [address] Performed By: #### A LLBG ####[facility] [id number] [place] [address] [place] Sodium [Moles/Vol] 134 mmol/L Low 136-144 [facility] Comment on above: Order Comment: Speci men Type: ARTERIAL BLOOD SPECIMENOrdering Facility: [facility] Address: [address] Performed By: #### A LLBG ####[facility] [id number] [place] [address] [place] Base deficit (BldA) [Moles/Vol] -4 mmol/L Low -2-0 [facility] Comment on above: Order Comment: Speci men Type: ARTERIAL BLOOD SPECIMENOrdering Facility: [facility] Address: [address] Performed By: #### A LLBG ####[facility] [id number] [place] [address] [place] Calcium.ionized (Bld) [Mass/Vol] 1.15 mmol/L Normal 1.08-1.30 [facility] Comment on above: Order Comment: Speci men Type: ARTERIAL BLOOD SPECIMENOrdering Facility: [facility] Address: [address] Performed By: #### A LLBG ####[facility] [id number] [place] [address] [place] Calcium.ionized adjusted to pH 7.4 (BldA) [Moles/Vol] 1.11 mmol/L Normal 1.08-1.30 [facility] Comment on above: Order Comment: Speci men Type: ARTERIAL BLOOD SPECIMENOrdering Facility: [facility] Address: [address] [place] [address] Performed By: #### A LLBG ####[facility] [id number] [place] [address] [place] Carboxyhemoglobin (BldA) [Mass fraction] 0.9 % Normal 0.0-2.0 [facility] Comment on above: Order Comment: Speci men Type: ARTERIAL BLOOD SPECIMENOrdering Facility: [facility] Address: [address] [place] [address] Result Comment: Carb oxyhemoglobin Reference Range for Smokers: 2.0-8.0% Performed By: #### A LLBG ####[facility] [id number] [place] [address] [place] CO2 (Bld) [Partial pressure] 40 mm Hg Normal 36-46 [facility] Comment on above: Order Comment: Speci men Type: ARTERIAL BLOOD SPECIMENOrdering Facility: [facility] Address: [address] [place] [id number] Performed By: #### A LLBG ####[facility] [id number] [place] [address] [place] CO2 [Moles/Vol] 22 mmol/L Normal 22-28 [facility] Comment on above: Order Comment: Speci men Type: ARTERIAL BLOOD SPECIMENOrdering Facility: [facility] Address: [address] [place] [id number] Performed By: #### A LLBG ####[facility] [id number] [place] [address] [place] CO2 adjusted to patient's actual temperature (Bld) [Partial pressure] 40 mmHg Normal 36-46 [facility] Comment on above: Order Comment: Speci men Type: ARTERIAL BLOOD SPECIMENOrdering Facility: [facility] Address: [address] [place] [address] Performed By: #### A LLBG ####[facility] [id number] [place] [address] [place] Glucose [Mass/Vol] 188 mg/dL High 60-105 [facility] Comment on above: Order Comment: Speci men Type: ARTERIAL BLOOD SPECIMENOrdering Facility: [facility] Address: [address] [place] [id number] Performed By: #### A LLBG ####[facility] [id number] [place] [address] [place] HCO3 (Bld) [Moles/Vol] 21 mmol/L Low 22-26 [facility] Comment on above: Order Comment: Speci men Type: ARTERIAL BLOOD SPECIMENOrdering Facility: [facility] Address: [address] [place] [id number] Performed By: #### A LLBG ####[facility] [id number] [place] [address] [place] Hematocrit (Bld) [Volume fraction] 30.2 % Low 36.0-46.0 [facility] Comment on above: Order Comment: Speci men Type: ARTERIAL BLOOD SPECIMENOrdering Facility: [facility] Address: [address] [place] [id number] Performed By: #### A LLBG ####[facility] [id number] [place] [address] [place] Hemoglobin (Bld) [Mass/Vol] 9.8 g/dL Low 11.5-15.5 [facility] Comment on above: Order Comment: Speci men Type: ARTERIAL BLOOD SPECIMENOrdering Facility: [facility] Address: [address] [place] [address] [place] [address] Performed By: #### A LLBG ####[facility] [id number] [place] [address] [place] Lactate [Moles/Vol] 2.2 mmol/L Normal 0.5-2.2 [facility] Comment on above: Order Comment: Speci men Type: ARTERIAL BLOOD SPECIMENOrdering Facility: [facility] Address: [address] [place] [address] Performed By: #### A LLBG ####[facility] [id number] [address] [place] Methemoglobin (Bld) [Mass fraction] 1.4 % Normal 0.0-1.5 [facility] Comment on above: Order Comment: Speci men Type: ARTERIAL BLOOD SPECIMENOrdering Facility: [facility] Address: [address] Performed By: #### A LLBG ####[facility] [id number] [place] [address] [place] Oxygen (Bld) [Partial pressure] 286 mm Hg High 85-95 [facility] Comment on above: Order Comment: Speci men Type: ARTERIAL BLOOD SPECIMENOrdering Facility: [facility] Address: [address] [place] [address] Performed By: #### A LLBG ####[facility] [id number] [place] [address] [place] Oxygen adjusted to patient's actual temperature (Bld) [Partial pressure] 286 mmHg High 85-95 [facility] Comment on above: Order Comment: Speci men Type: ARTERIAL BLOOD SPECIMENOrdering Facility: [facility] Address: [address] [place] [address] Performed By: #### A LLBG ####[facility] [id number] [place] [id number] [address] [place] Oxyhemoglobin (BldA) [Mass fraction] 97 % Normal 95-98 [facility] Comment on above: Order Comment: Speci men Type: ARTERIAL BLOOD SPECIMENOrdering Facility: [facility] Address: [address] [place] [address] Performed By: #### A LLBG ####[facility] [id number] [place] [address] [place] pH (Bld) 7.34 [pH] Low 7.35-7.45 [facility] Comment on above: Order Comment: Speci men Type: ARTERIAL BLOOD SPECIMENOrdering Facility: [facility] Address: [address] [place] [id number] Performed By: #### A LLBG ####[facility] [id number] [place] [address] [place] pH adjusted to patient's actual temperature (Bld) 7.34 Low 7.35-7.45 [facility] Comment on above: Order Comment: Speci men Type: ARTERIAL BLOOD SPECIMENOrdering Facility: [facility] Address: [address] [place] [id number] Performed By: #### A LLBG ####[facility] [id number] [place] [address] [place] Potassium [Moles/Vol] 3.4 mmol/L Low 3.5-5.0 [facility] Comment on above: Order Comment: Speci men Type: ARTERIAL BLOOD SPECIMENOrdering Facility: [facility] Address: [address] [place] [id number] Performed By: #### A LLBG ####[facility] [id number] [place] [address] [place] Sodium [Moles/Vol] 133 mmol/L Low 136-144 [facility] Comment on above: Order Comment: Speci men Type: ARTERIAL BLOOD SPECIMENOrdering Facility: [facility] Address: [address] [place] [address] Performed By: #### A LLBG ####[facility] [id number] [address] [place] Base deficit (BldA) [Moles/Vol] -3 mmol/L Low -2-0 [facility] Comment on above: Order Comment: Speci men Type: ARTERIAL BLOOD SPECIMENOrdering Facility: [facility] Address: [address] [place] [address] Performed By: #### A LLBG ####[facility] [id number] [place] [address] [place] Calcium.ionized (Bld) [Mass/Vol] 1.17 mmol/L Normal 1.08-1.30 [facility] Comment on above: Order Comment: Speci men Type: ARTERIAL BLOOD SPECIMENOrdering Facility: [facility] Address: [address] [place] [address] Performed By: #### A LLBG ####[facility] [id number] [address] [place] Calcium.ionized adjusted to pH 7.4 (BldA) [Moles/Vol] 1.14 mmol/L Normal 1.08-1.30 [facility] Comment on above: Order Comment: Speci men Type: ARTERIAL BLOOD SPECIMENOrdering Facility: [facility] Address: [address] [place] [address] Performed By: #### A LLBG ####[facility] [id number] [place] [address] [place] Carboxyhemoglobin (BldA) [Mass fraction] 0.8 % Normal 0.0-2.0 [facility] Comment on above: Order Comment: Speci men Type: ARTERIAL BLOOD SPECIMENOrdering Facility: [facility] Address: [address] [place] [address] Result Comment: Carb oxyhemoglobin Reference Range for Smokers: 2.0-8.0% Performed By: #### A LLBG ####[facility] [id number] [place] [address] [place] CO2 (Bld) [Partial pressure] 39 mm Hg Normal 36-46 [facility] Comment on above: Order Comment: Speci men Type: ARTERIAL BLOOD SPECIMENOrdering Facility: [facility] Address: [address] Performed By: #### A LLBG ####[facility] [id number] [place] [address] [place] CO2 [Moles/Vol] 23 mmol/L Normal 22-28 [facility] Comment on above: Order Comment: Speci men Type: ARTERIAL BLOOD SPECIMENOrdering Facility: [facility] Address: [address] [place] [id number] Performed By: #### A LLBG ####[facility] [id number] [place] [address] [place] CO2 adjusted to patient's actual temperature (Bld) [Partial pressure] 39 mmHg Normal 36-46 [facility] Comment on above: Order Comment: Speci men Type: ARTERIAL BLOOD SPECIMENOrdering Facility: [facility] Address: [address] [place] [id number] Performed By: #### A LLBG ####[facility] [id number] [place] [address] [place] Glucose [Mass/Vol] 232 mg/dL High 60-105 [facility] Comment on above: Order Comment: Speci men Type: ARTERIAL BLOOD SPECIMENOrdering Facility: [facility] Address: [address] [place] [id number] Performed By: #### A LLBG ####[facility] [id number] [place] [address] [place] HCO3 (Bld) [Moles/Vol] 21 mmol/L Low 22-26 [facility] Comment on above: Order Comment: Speci men Type: ARTERIAL BLOOD SPECIMENOrdering Facility: [facility] Address: [address] Performed By: #### A LLBG ####[facility] [id number] [place] [address] [place] Hematocrit (Bld) [Volume fraction] 25.7 % Low 36.0-46.0 [facility] Comment on above: Order Comment: Speci men Type: ARTERIAL BLOOD SPECIMENOrdering Facility: [facility] Address: [address] [place] [address] Performed By: #### A LLBG ####[facility] [id number] [place] [address] [place] Hemoglobin (Bld) [Mass/Vol] 8.3 g/dL Low 11.5-15.5 [facility] Comment on above: Order Comment: Speci men Type: ARTERIAL BLOOD SPECIMENOrdering Facility: [facility] Address: [address] [place] [id number] Performed By: #### A LLBG ####[facility] [id number] [place] [address] [place] Lactate [Moles/Vol] 2.8 mmol/L High 0.5-2.2 [facility] Comment on above: Order Comment: Speci men Type: ARTERIAL BLOOD SPECIMENOrdering Facility: [facility] Address: [address] Performed By: #### A LLBG ####[facility] [id number] [place] [address] [place] Methemoglobin (Bld) [Mass fraction] 1.6 % High 0.0-1.5 [facility] Comment on above: Order Comment: Speci men Type: ARTERIAL BLOOD SPECIMENOrdering Facility: [facility] Address: [address] [place] Performed By: #### A LLBG ####[facility] [id number] [place] [address] [place] Oxygen (Bld) [Partial pressure] 150 mm Hg High 85-95 [facility] Comment on above: Order Comment: Speci men Type: ARTERIAL BLOOD SPECIMENOrdering Facility: [facility] Address: [address] [place] [address] Performed By: #### A LLBG ####[facility] [id number] [place] [address] [place] Oxygen adjusted to patient's actual temperature (Bld) [Partial pressure] 150 mmHg High 85-95 [facility] Comment on above: Order Comment: Speci men Type: ARTERIAL BLOOD SPECIMENOrdering Facility: [facility] Address: [address] Performed By: #### A LLBG ####[facility] [id number] [place] [address] [place] Oxyhemoglobin (BldA) [Mass fraction] 96 % Normal 95-98 [facility] Comment on above: Order Comment: Speci men Type: ARTERIAL BLOOD SPECIMENOrdering Facility: [facility] Address: [address] [place], [place] Performed By: #### A LLBG ####[facility] [id number] [place] [address] [place] pH (Bld) 7.35 [pH] Normal 7.35-7.45 [facility] Comment on above: Order Comment: Speci men Type: ARTERIAL BLOOD SPECIMENOrdering Facility: [facility] Address: [address] [place] [address] Performed By: #### A LLBG ####[facility] [id number] [place] [address] [place] pH adjusted to patient's actual temperature (Bld) 7.35 Normal 7.35-7.45 [facility] Comment on above: Order Comment: Speci men Type: ARTERIAL BLOOD SPECIMENOrdering Facility: [facility] Address: [address] [place] [address] Performed By: #### A LLBG ####[facility] [id number] [place] [address] [place] Potassium [Moles/Vol] 3.9 mmol/L Normal 3.5-5.0 [facility] Comment on above: Order Comment: Speci men Type: ARTERIAL BLOOD SPECIMENOrdering Facility: [facility] Address: [address] [place] [address] Performed By: #### A LLBG ####[facility] [id number] [place] [address] [place] Sodium [Moles/Vol] 132 mmol/L Low 136-144 [facility] Comment on above: Order Comment: Speci men Type: ARTERIAL BLOOD SPECIMENOrdering Facility: [facility] Address: [address] [place] [address] Performed By: #### A LLBG ####[facility] [id number] [place] [address] [place] Base deficit (BldA) [Moles/Vol] -5 mmol/L Low -2-0 [facility] Comment on above: Order Comment: Speci men Type: ARTERIAL BLOOD SPECIMENOrdering Facility: [facility] Address: [address] [place], [place] [id number] Performed By: #### A LLBG ####[facility] [id number] [place] [address] [place] Calcium.ionized (Bld) [Mass/Vol] 1.19 mmol/L Normal 1.08-1.30 [facility] Comment on above: Order Comment: Speci men Type: ARTERIAL BLOOD SPECIMENOrdering Facility: [facility] Address: [address] [place] [address] Performed By: #### A LLBG ####[facility] [id number] [place] [address] [place] Calcium.ionized adjusted to pH 7.4 (BldA) [Moles/Vol] 1.10 mmol/L Normal 1.08-1.30 [facility] Comment on above: Order Comment: Speci men Type: ARTERIAL BLOOD SPECIMENOrdering Facility: [facility] Address: [address] [place] [address] Performed By: #### A LLBG ####[facility] [id number] [place] [address] [place] Carboxyhemoglobin (BldA) [Mass fraction] 0.5 % Normal 0.0-2.0 [facility] Comment on above: Order Comment: Speci men Type: ARTERIAL BLOOD SPECIMENOrdering Facility: [facility] Address: [address] [place] [address] Result Comment: Carb oxyhemoglobin Reference Range for Smokers: 2.0-8.0% Performed By: #### A LLBG ####[facility] [id number] [place] [address] [place] CO2 (Bld) [Partial pressure] 49 mm Hg High 36-46 [facility] Comment on above: Order Comment: Speci men Type: ARTERIAL BLOOD SPECIMENOrdering Facility: [facility] Address: [address] Performed By: #### A LLBG ####[facility] [id number] [place] [address] [place] CO2 [Moles/Vol] 23 mmol/L Normal 22-28 [facility] Comment on above: Order Comment: Speci men Type: ARTERIAL BLOOD SPECIMENOrdering Facility: [facility] Address: [address] Performed By: #### A LLBG ####[facility] [id number] [address] [place] CO2 adjusted to patient's actual temperature (Bld) [Partial pressure] 49 mmHg High 36-46 [facility] Comment on above: Order Comment: Speci men Type: ARTERIAL BLOOD SPECIMENOrdering Facility: [facility] Address: [address] [place], [place] [id number] Performed By: #### A LLBG ####[facility] [id number] [place] [address] [place] Glucose [Mass/Vol] 186 mg/dL High 60-105 [facility] Comment on above: Order Comment: Speci men Type: ARTERIAL BLOOD SPECIMENOrdering Facility: [facility] Address: [address] [place] [id number] Performed By: #### A LLBG ####[facility] [id number] [place] [address] [place] HCO3 (Bld) [Moles/Vol] 21 mmol/L Low 22-26 [facility] Comment on above: Order Comment: Speci men Type: ARTERIAL BLOOD SPECIMENOrdering Facility: [facility] Address: [address] [place] [id number] Performed By: #### A LLBG ####[facility] [id number] [place] [address] [place] Hematocrit (Bld) [Volume fraction] 23.2 % Low 36.0-46.0 [facility] Comment on above: Order Comment: Speci men Type: ARTERIAL BLOOD SPECIMENOrdering Facility: [facility] Address: [address] [place] [id number] Performed By: #### A LLBG ####[facility] [id number] [place] [address] [place] Hemoglobin (Bld) [Mass/Vol] 7.4 g/dL Low 11.5-15.5 [facility] Comment on above: Order Comment: Speci men Type: ARTERIAL BLOOD SPECIMENOrdering Facility: [facility] Address: [address] [place] [id number] Performed By: #### A LLBG ####[facility] [id number] [place] [address] [place] Lactate [Moles/Vol] 3.1 mmol/L High 0.5-2.2 [facility] Comment on above: Order Comment: Speci men Type: ARTERIAL BLOOD SPECIMENOrdering Facility: [facility] Address: [address] [place] [id number] Performed By: #### A LLBG ####[facility] [id number] [place] [address] [place] Order Comment: Speci men Type: VENOUS BLOOD SPECIMENOrdering Facility: [facility] Address: [address] [place] [address] Performed By: #### 2 4344-4 ####[facility] [id number] [place] [address] [place] Methemoglobin (Bld) [Mass fraction] 1.7 % High 0.0-1.5 [facility] Comment on above: Order Comment: Speci men Type: ARTERIAL BLOOD SPECIMENOrdering Facility: [facility] Address: [address] [place] [id number] Performed By: #### A LLBG ####[facility] [id number] [place] [address] [place] Oxygen (Bld) [Partial pressure] 330 mm Hg High 85-95 [facility] Comment on above: Order Comment: Speci men Type: ARTERIAL BLOOD SPECIMENOrdering Facility: [facility] Address: [address] [place] [id number] Performed By: #### A LLBG ####[facility] [id number] [place] [address] [place] Oxygen adjusted to patient's actual temperature (Bld) [Partial pressure] 330 mmHg High 85-95 [facility] Comment on above: Order Comment: Speci men Type: ARTERIAL BLOOD SPECIMENOrdering Facility: [facility] Address: [address] [place] [address] Performed By: #### A LLBG ####[facility] [id number] [place] [address] [place] Oxyhemoglobin (BldA) [Mass fraction] 97 % Normal 95-98 [facility] Comment on above: Order Comment: Speci men Type: ARTERIAL BLOOD SPECIMENOrdering Facility: [facility] Address: [address] [place] [id number] Performed By: #### A LLBG ####[facility] [id number] [place] [address] [place] pH (Bld) 7.26 [pH] Low 7.35-7.45 [facility] Comment on above: Order Comment: Speci men Type: ARTERIAL BLOOD SPECIMENOrdering Facility: [facility] Address: [address] [place] [id number] Performed By: #### A LLBG ####[facility] [id number] [place] [address] [place] pH adjusted to patient's actual temperature (Bld) 7.26 Low 7.35-7.45 [facility] Comment on above: Order Comment: Speci men Type: ARTERIAL BLOOD SPECIMENOrdering Facility: [facility] Address: [address] [place] [id number] Performed By: #### A LLBG ####[facility] [id number] [place] [address] [place] Potassium [Moles/Vol] 4.8 mmol/L Normal 3.5-5.0 [facility] Comment on above: Order Comment: Speci men Type: ARTERIAL BLOOD SPECIMENOrdering Facility: [facility] Address: [address] [place] [address] Performed By: #### A LLBG ####[facility] [id number] [place] [address] [place] Sodium [Moles/Vol] 131 mmol/L Low 136-144 [facility] Comment on above: Order Comment: Speci men Type: ARTERIAL BLOOD SPECIMENOrdering Facility: [facility] Address: [address] [place] [address] Performed By: #### A LLBG ####[facility] [id number] [place] [address] [place] Base deficit (BldA) [Moles/Vol] -3 mmol/L Low -2-0 [facility] Comment on above: Order Comment: Speci men Type: ARTERIAL BLOOD SPECIMENOrdering Facility: [facility] Address: [address] [place] [address] Performed By: #### A LLBG ####[facility] [id number] [place] [address] [place] Calcium.ionized (Bld) [Mass/Vol] 1.27 mmol/L Normal 1.08-1.30 [facility] Comment on above: Order Comment: Speci men Type: ARTERIAL BLOOD SPECIMENOrdering Facility: [facility] Address: [address] [place] [id number] Performed By: #### A LLBG ####[facility] [id number] [place] [address] [place] Calcium.ionized adjusted to pH 7.4 (BldA) [Moles/Vol] 1.24 mmol/L Normal 1.08-1.30 [facility] Comment on above: Order Comment: Speci men Type: ARTERIAL BLOOD SPECIMENOrdering Facility: [facility] Address: [address] Performed By: #### A LLBG ####[facility] [id number] [address] [place] Carboxyhemoglobin (BldA) [Mass fraction] 0.1 % Normal 0.0-2.0 [facility] Comment on above: Order Comment: Speci men Type: ARTERIAL BLOOD SPECIMENOrdering Facility: [facility] Address: [address] Result Comment: Carb oxyhemoglobin Reference Range for Smokers: 2.0-8.0% Performed By: #### A LLBG ####[facility] [id number] [address] [place] CO2 (Bld) [Partial pressure] 40 mm Hg Normal 36-46 [facility] Comment on above: Order Comment: Speci men Type: ARTERIAL BLOOD SPECIMENOrdering Facility: [facility] Address: [address] Performed By: #### A LLBG ####[facility] [id number] [place] [address] [place] CO2 [Moles/Vol] 23 mmol/L Normal 22-28 [facility] Comment on above: Order Comment: Speci men Type: ARTERIAL BLOOD SPECIMENOrdering Facility: [facility] Address: [address] [place] [id number] Performed By: #### A LLBG ####[facility] [id number] [place] [address] [place] CO2 adjusted to patient's actual temperature (Bld) [Partial pressure] 40 mmHg Normal 36-46 [facility] Comment on above: Order Comment: Speci men Type: ARTERIAL BLOOD SPECIMENOrdering Facility: [facility] Address: [address] Performed By: #### A LLBG ####[facility] [id number] [place] [address] [place] Glucose [Mass/Vol] 142 mg/dL High 60-105 [facility] Comment on above: Order Comment: Speci men Type: ARTERIAL BLOOD SPECIMENOrdering Facility: [facility] Address: [address] [place] [address] Performed By: #### A LLBG ####[facility] [id number] [place] [address] [place] HCO3 (Bld) [Moles/Vol] 22 mmol/L Normal 22-26 [facility] Comment on above: Order Comment: Speci men Type: ARTERIAL BLOOD SPECIMENOrdering Facility: [facility] Address: [address] [place] [address] Performed By: #### A LLBG ####[facility] [id number] [place] [address] [place] Hematocrit (Bld) [Volume fraction] 31.9 % Low 36.0-46.0 [facility] Comment on above: Order Comment: Speci men Type: ARTERIAL BLOOD SPECIMENOrdering Facility: [facility] Address: [address] [place] [address] Performed By: #### A LLBG ####[facility] [id number] [place] [address] [place] Hemoglobin (Bld) [Mass/Vol] 10.3 g/dL Low 11.5-15.5 [facility] Comment on above: Order Comment: Speci men Type: ARTERIAL BLOOD SPECIMENOrdering Facility: [facility] Address: [address] [place] [id number] Performed By: #### A LLBG ####[facility] [id number] [place] [address] [place] Lactate [Moles/Vol] 2.5 mmol/L High 0.5-2.2 [facility] Comment on above: Order Comment: Speci men Type: ARTERIAL BLOOD SPECIMENOrdering Facility: [facility] Address: [address] [place] [address] Performed By: #### A LLBG ####[facility] [id number] [place] [address] [place] Methemoglobin (Bld) [Mass fraction] 0.4 % Normal 0.0-1.5 [facility] Comment on above: Order Comment: Speci men Type: ARTERIAL BLOOD SPECIMENOrdering Facility: [facility] Address: [address] Performed By: #### A LLBG ####[facility] [id number] [place] [address] [place] Oxygen (Bld) [Partial pressure] 217 mm Hg High 85-95 [facility] Comment on above: Order Comment: Speci men Type: ARTERIAL BLOOD SPECIMENOrdering Facility: [facility] Address: [address] [place] [address] Performed By: #### A LLBG ####[facility] [id number] [place] [address] [place] Oxygen adjusted to patient's actual temperature (Bld) [Partial pressure] 217 mmHg High 85-95 [facility] Comment on above: Order Comment: Speci men Type: ARTERIAL BLOOD SPECIMENOrdering Facility: [facility] Address: [address] [place] [address] Performed By: #### A LLBG ####[facility] [id number] [place] [address] [place] Oxyhemoglobin (BldA) [Mass fraction] 97 % Normal 95-98 [facility] Comment on above: Order Comment: Speci men Type: ARTERIAL BLOOD SPECIMENOrdering Facility: [facility] Address: [address] [place] [address] Performed By: #### A LLBG ####[facility] [id number] [place] [address] [place] pH (Bld) 7.36 [pH] Normal 7.35-7.45 [facility] Comment on above: Order Comment: Speci men Type: ARTERIAL BLOOD SPECIMENOrdering Facility: [facility] Address: [address] [place] [address] Performed By: #### A LLBG ####[facility] [id number] [place] [address] [place] pH adjusted to patient's actual temperature (Bld) 7.36 Normal 7.35-7.45 [facility] Comment on above: Order Comment: Speci men Type: ARTERIAL BLOOD SPECIMENOrdering Facility: [facility] Address: [address] [place] [address] Performed By: #### A LLBG ####[facility] [id number] [place] [address] [place] Potassium [Moles/Vol] 3.9 mmol/L Normal 3.5-5.0 [facility] Comment on above: Order Comment: Speci men Type: ARTERIAL BLOOD SPECIMENOrdering Facility: [facility] Address: [address] [place] [id number] Performed By: #### A LLBG ####[facility] [id number] [place] [address] [place] Sodium [Moles/Vol] 135 mmol/L Low 136-144 [facility] Comment on above: Order Comment: Speci men Type: ARTERIAL BLOOD SPECIMENOrdering Facility: [facility] Address: [address] [place] [id number] Performed By: #### A LLBG ####[facility] [id number] [place] [address] [place] Base deficit (BldA) [Moles/Vol] -1 mmol/L Normal -2-0 [facility] Comment on above: Order Comment: Speci men Type: ARTERIAL BLOOD SPECIMENOrdering Facility: [facility] Address: [address] [place] [address] Performed By: #### A LLBG ####[facility] [id number] [place] [address] [place] Calcium.ionized (Bld) [Mass/Vol] 1.31 mmol/L High 1.08-1.30 [facility] Comment on above: Order Comment: Speci men Type: ARTERIAL BLOOD SPECIMENOrdering Facility: [facility] Address: [address] [place] [address] Performed By: #### A LLBG ####[facility] [id number] [place] [address] [place] Calcium.ionized adjusted to pH 7.4 (BldA) [Moles/Vol] 1.32 mmol/L High 1.08-1.30 [facility] Comment on above: Order Comment: Speci men Type: ARTERIAL BLOOD SPECIMENOrdering Facility: [facility] Address: [address] [place] [address] Performed By: #### A LLBG ####[facility] [id number] [place] [address] [place] Carboxyhemoglobin (BldA) [Mass fraction] 0.5 % Normal 0.0-2.0 [facility] Comment on above: Order Comment: Speci men Type: ARTERIAL BLOOD SPECIMENOrdering Facility: [facility] Address: [address] [place] [id number] Result Comment: Carb oxyhemoglobin Reference Range for Smokers: 2.0-8.0% Performed By: #### A LLBG ####[facility] [id number] [place] [address] [place] CO2 (Bld) [Partial pressure] 35 mm Hg Low 36-46 [facility] Comment on above: Order Comment: Speci men Type: ARTERIAL BLOOD SPECIMENOrdering Facility: [facility] Address: [address] Performed By: #### A LLBG ####[facility] [id number] [place] [address] [place] CO2 [Moles/Vol] 24 mmol/L Normal 22-28 [facility] Comment on above: Order Comment: Speci men Type: ARTERIAL BLOOD SPECIMENOrdering Facility: [facility] Address: [address] Performed By: #### A LLBG ####[facility] [id number] [place] [address] [place] CO2 adjusted to patient's actual temperature (Bld) [Partial pressure] 35 mmHg Low 36-46 [facility] Comment on above: Order Comment: Speci men Type: ARTERIAL BLOOD SPECIMENOrdering Facility: [facility] Address: [address] Performed By: #### A LLBG ####[facility] [id number] [place] [address] [place] Glucose [Mass/Vol] 111 mg/dL High 60-105 [facility] Comment on above: Order Comment: Speci men Type: ARTERIAL BLOOD SPECIMENOrdering Facility: [facility] Address: [address] Performed By: #### A LLBG ####[facility] [id number] [place] [address] [place] HCO3 (Bld) [Moles/Vol] 23 mmol/L Normal 22-26 [facility] Comment on above: Order Comment: Speci men Type: ARTERIAL BLOOD SPECIMENOrdering Facility: [facility] Address: [address] Performed By: #### A LLBG ####[facility] [id number] [place] [address] [place] Hematocrit (Bld) [Volume fraction] 37.6 % Normal 36.0-46.0 [facility] Comment on above: Order Comment: Speci men Type: ARTERIAL BLOOD SPECIMENOrdering Facility: [facility] Address: [address] [place] [address] Performed By: #### A LLBG ####[facility] [id number] [place] [address] [place] Hemoglobin (Bld) [Mass/Vol] 12.2 g/dL Normal 11.5-15.5 [facility] Comment on above: Order Comment: Speci men Type: ARTERIAL BLOOD SPECIMENOrdering Facility: [facility] Address: [address] [place] [address] Performed By: #### A LLBG ####[facility] [id number] [place] [address] [place] Lactate [Moles/Vol] 1.4 mmol/L Normal 0.5-2.2 [facility] Comment on above: Order Comment: Speci men Type: ARTERIAL BLOOD SPECIMENOrdering Facility: [facility] Address: [address] [place] [address] Performed By: #### A LLBG ####[facility] [id number] [place] [address] [place] Methemoglobin (Bld) [Mass fraction] 1.2 % Normal 0.0-1.5 [facility] Comment on above: Order Comment: Speci men Type: ARTERIAL BLOOD SPECIMENOrdering Facility: [facility] Address: [address] [place], [place] [id number] Performed By: #### A LLBG ####[facility] [id number] [place] [address] [place] Oxygen (Bld) [Partial pressure] 130 mm Hg High 85-95 [facility] Comment on above: Order Comment: Speci men Type: ARTERIAL BLOOD SPECIMENOrdering Facility: [facility] Address: [address] Performed By: #### A LLBG ####[facility] [id number] [place] [address] [place] Oxygen adjusted to patient's actual temperature (Bld) [Partial pressure] 130 mmHg High 85-95 [facility] Comment on above: Order Comment: Speci men Type: ARTERIAL BLOOD SPECIMENOrdering Facility: [facility] Address: [address] Performed By: #### A LLBG ####[facility] [id number] [place] [address] [place] Oxyhemoglobin (BldA) [Mass fraction] 97 % Normal 95-98 [facility] Comment on above: Order Comment: Speci men Type: ARTERIAL BLOOD SPECIMENOrdering Facility: [facility] Address: [address] Performed By: #### A LLBG ####[facility] [id number] [place] [address] [place] pH (Bld) 7.42 [pH] Normal 7.35-7.45 [facility] Comment on above: Order Comment: Speci men Type: ARTERIAL BLOOD SPECIMENOrdering Facility: [facility] Address: [address] [place] [address] Performed By: #### A LLBG ####[facility] [id number] [place] [address] [place] pH adjusted to patient's actual temperature (Bld) 7.42 Normal 7.35-7.45 [facility] Comment on above: Order Comment: Speci men Type: ARTERIAL BLOOD SPECIMENOrdering Facility: [facility] Address: [address] [place] [address] Performed By: #### A LLBG ####[facility] [id number] [place] [address] [place] Potassium [Moles/Vol] 3.9 mmol/L Normal 3.5-5.0 [facility] Comment on above: Order Comment: Speci men Type: ARTERIAL BLOOD SPECIMENOrdering Facility: [facility] Address: [address] [place] [address] Performed By: #### A LLBG ####[facility] [id number] [place] [address] [place] Sodium [Moles/Vol] 139 mmol/L Normal 136-144 [facility] Comment on above: Order Comment: Speci men Type: ARTERIAL BLOOD SPECIMENOrdering Facility: [facility] Address: [address] [place] [address] Performed By: #### A LLBG ####[facility] [id number] [place] [address] [place] [id number] 06-26-2022 ECG01 Normal [facility] Gas and Carbon monoxide pane l (BldV)on 06-26-2022 BASE DEFICIT, VENOUS -4 mmol/L Low -2-0 [facility] Comment on above: Order Comment: Speci men Type: VENOUS BLOOD SPECIMENOrdering Facility: [facility] Address: [address] Performed By: #### 2 4344-4 ####[facility] [id number] [place] [address] [place] Calcium.ionized (Bld) [Mass/Vol] 1.21 mmol/L Normal 1.08-1.30 [facility] Comment on above: Order Comment: Speci men Type: VENOUS BLOOD SPECIMENOrdering Facility: [facility] Address: [address] [address] Performed By: #### 2 4344-4 ####[facility] [id number] [place] [address] [place] Calcium.ionized adjusted to pH 7.4 (BldA) [Moles/Vol] 1.09 mmol/L Normal 1.08-1.30 [facility] Comment on above: Order Comment: Speci men Type: VENOUS BLOOD SPECIMENOrdering Facility: [facility] Address: [address] [address] Performed By: #### 2 4344-4 ####[facility] [id number] [place] [address] [place] Carboxyhemoglobin (BldV) [Mass fraction] 1.0 % Normal 0.0-2.0 [facility] Comment on above: Order Comment: Speci men Type: VENOUS BLOOD SPECIMENOrdering Facility: [facility] Address: [address] [place] [address] Result Comment: Carb oxyhemoglobin Reference Range for Smokers: 2.0-8.0% Performed By: #### 2 4344-4 ####[facility] [id number] [place] [address] [place] CO2 (BldV) [Partial pressure] 61 mm[Hg] High 42-55 [facility] Comment on above: Order Comment: Speci men Type: VENOUS BLOOD SPECIMENOrdering Facility: [facility] Address: [address] [address] Performed By: #### 2 4344-4 ####[facility] [id number] [place] [address] [place] CO2 [Moles/Vol] 25 mmol/L Normal 25-29 [facility] Comment on above: Order Comment: Speci men Type: VENOUS BLOOD SPECIMENOrdering Facility: [facility] Address: [address] [place] [address] Performed By: #### 2 4344-4 ####[facility] [id number] [place] [address] [place] CO2 adjusted to patient's actual temperature (BldV) [Partial pressure] 61 mmHg High 42-55 [facility] Comment on above: Order Comment: Speci men Type: VENOUS BLOOD SPECIMENOrdering Facility: [facility] Address: [address] [place], [place] [address] Performed By: #### 2 4344-4 ####[facility] [id number] [place] [address] [place] Glucose [Mass/Vol] 193 mg/dL High 60-105 [facility] Comment on above: Order Comment: Speci men Type: VENOUS BLOOD SPECIMENOrdering Facility: [facility] Address: [address] [place], [place] [address] Performed By: #### 2 4344-4 ####[facility] [id number] [place] [address] [place] HCO3 (Bld) [Moles/Vol] 23 mmol/L Low 24-28 [facility] Comment on above: Order Comment: Speci men Type: VENOUS BLOOD SPECIMENOrdering Facility: [facility] Address: [address] [place] [address] Performed By: #### 2 4344-4 ####[facility] [id number] [place] [address] [place] Hematocrit (Bld) [Volume fraction] 23.4 % Low 36.0-46.0 [facility] Comment on above: Order Comment: Speci men Type: VENOUS BLOOD SPECIMENOrdering Facility: [facility] Address: [address] [place] [address] Performed By: #### 2 4344-4 ####[facility] [id number] [place] [address] [place] Hemoglobin (Bld) [Mass/Vol] 7.5 g/dL Low 11.5-15.5 [facility] Comment on above: Order Comment: Speci men Type: VENOUS BLOOD SPECIMENOrdering Facility: [facility] Address: [address] Performed By: #### 2 4344-4 ####[facility] [id number] [address] Methemoglobin (Bld) [Mass fraction] 1.5 % Normal 0.0-1.5 [facility] Comment on above: Order Comment: Speci men Type: VENOUS BLOOD SPECIMENOrdering Facility: [facility] Address: [address] Performed By: #### 2 4344-4 ####[facility] [id number] [place] [address] [place] Oxygen (BldV) [Partial pressure] 94 mm[Hg] High 35-45 [facility] Comment on above: Order Comment: Speci men Type: VENOUS BLOOD SPECIMENOrdering Facility: [facility] Address: [address] Performed By: #### 2 4344-4 ####[facility] [id number] [place] [address] [place] Oxygen adjusted to patient's actual temperature (BldV) [Partial pressure] 94 mmHg High 35-45 [facility] Comment on above: Order Comment: Speci men Type: VENOUS BLOOD SPECIMENOrdering Facility: [facility] Address: [address] [place] [address] Performed By: #### 2 4344-4 ####[facility] [id number] [place] [address] [place] Oxygen saturation in Venous blood 96 % High 60-85 [facility] Comment on above: Order Comment: Speci men Type: VENOUS BLOOD SPECIMENOrdering Facility: [facility] Address: [address] Performed By: #### 2 4344-4 ####[facility] [id number] [place] [address] [place] Oxyhemoglobin (BldV) [Mass fraction] 94 % High 60-85 [facility] Comment on above: Order Comment: Speci men Type: VENOUS BLOOD SPECIMENOrdering Facility: [facility] Address: [address] [place] [address] Performed By: #### 2 4344-4 ####[facility] [id number] [place] [address] [place] pH (BldV) 7.20 [pH] Low 7.32-7.42 [facility] Comment on above: Order Comment: Speci men Type: VENOUS BLOOD SPECIMENOrdering Facility: [facility] Address: [address] [place] [address] Performed By: #### 2 4344-4 ####[facility] [id number] [address] [place] pH adjusted to patient's actual temperature (BldV) 7.20 Low 7.32-7.42 [facility] Comment on above: Order Comment: Speci men Type: VENOUS BLOOD SPECIMENOrdering Facility: [facility] Address: [address] [place] [address] Performed By: #### 2 4344-4 ####[facility] [id number] [place] [address] [place] Potassium [Moles/Vol] 4.5 mmol/L Normal 3.5-5.0 [facility] Comment on above: Order Comment: Speci men Type: VENOUS BLOOD SPECIMENOrdering Facility: [facility] Address: [address] [place] [address] Performed By: #### 2 4344-4 ####[facility] [id number] [place] [address] [place] Sodium [Moles/Vol] 132 mmol/L Low 136-144 [facility] Comment on above: Order Comment: Speci men Type: VENOUS BLOOD SPECIMENOrdering Facility: [facility] Address: [address] [place] [address] Performed By: #### 2 4344-4 ####[facility] [id number] [place] [address] [place] INTRAOPERATIVE ECHO PREon INTRAOPERATIVE ECHO PRE Normal [facility] OPERATIVE NOon 06-26-2022 OPERATIVE NO Normal [facility] STAPH AUREUS PCRon S. aureus and MRSA panel TERI+probe (Nose) Normal Negative [facility] Comment on above: Order Comment: Speci men Type: SWAB OF INTERNAL NOSEOrdering Facility: [facility] Address: [address] [place] [address] Result Comment: Nega tive for Staphylococcus aureus by PCR.Negative for MRSA by PCR Performed By: #### S APCR ####[facility] [id number] [place] [address] [place] SURGICAL PATHOLOGYon 022 CASE REPORT Normal [facility] Comment on above: Order Comment: Speci men Type: TISSUE SPECIMENOrdering Facility: [facility] Address: [address] [place] [address] Result Comment: Surg ica Pathology Report Case: [id number] Provider: Jacob Farooq MD Collected: 06/26/2022 10:05 AMOrdering Location: Admitting Received: 06/26/2022 01:32 PMPathologist: LEO Codypecimens: A) - AORTIC VALVE, Aortic Valve Leaflets B) - AORTA, Aorta - histology Performed By: #### S ####[facility] [id number] [place] [address] [place] CLINICAL HISTORY Normal [facility] Comment on above: Order Comment: Speci men Type: TISSUE SPECIMENOrdering Facility: [facility] Address: [address] [place] [address] Result Comment: Pre- op diagnosis: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 Movat stain was performed to assess the vascular architecture with adequate control. Movat stain shows mild accumulation of mucopolysaccharides within lamellar units. There is no evidence of cystic medial degeneration or inflammatory infiltrates. Normal [facility] Comment on above: Order Comment: Speci men Type: TISSUE SPECIMENOrdering Facility: [facility] Address: [address] [place] [address] Performed By: #### S ####[facility] [id number] [address] FINAL DIAGNOSIS Normal [facility] Comment on above: Order Comment: Speci men Type: TISSUE SPECIMENOrdering Facility: [facility] Address: [address] [address] Result Comment: A. 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 Aorta, partial excision:- Mild accumulation of mucopolysaccharides. Performed By: #### S ####[facility] [id number] [address] FINAL PERFORMING LAB Normal [facility] Comment on above: Order Comment: Speci men Type: TISSUE SPECIMENOrdering Facility: [facility] Address: [address] [address] Result Comment: Diag nostic interpretation performed at [facility], [address] [address] CLIA# [id number] Director: Daljit Lan M.D. Performed By: #### S ####[facility] [id number] [place] [address] [place] GROSS DESCRIPTION A. AORTIC VALVE Normal [facility] Comment on above: Order Comment: Speci men Type: TISSUE SPECIMENOrdering Facility: [facility] Address: [address] [address] Result Comment: Rece ived in formalin labeled as aortic valve is one semilunar valve cusps measuring 2.7 cm in length along the free edge and 1.4 cm in width from free edge to base. A median raphe is appreciated. Commissural fusion is not identified. Severe calcification and severe fibrosis are present. 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 Vegetations, perforations and fenestrations are not present. The specimen is shown to Dr. Richards. Gross examination only.B. AORTAReceived in formalin labeled as aorta is a flat unoriented piece of artery consistent with aorta measuring 1.2 x 0.7 x 0.3 cm. The adventitial surface is unremarkable with focal hemorrhage. The wall thickness measures 0.1 cm. The intimal surface is richards-yellow and smooth. No dissection plane is identified. The specimen is shown to Dr. Richards. Totally submitted in one cassette.[facility] June 29, 2022 11:21 AMGross examination performed at [facility], [address] [place] [address] Performed By: #### S ####[facility] [id number] [place] [address] [place] XR CHEST 1V FRONTAL PORTon 1 08-27-2021 XR CHEST 1V FRONTAL PORT Normal [facility] CNCNPATEDon 06-25-2022 CNCNPATED Normal [facility] CNOVon 06-25-2022 CNOV Normal [facility] CNOV Normal [facility] STAPH AUREUS PCRon S. aureus and MRSA panel TERI+probe (Nose) Normal Negative [facility] Comment on above: Order Comment: Speci men Type: SWAB OF INTERNAL NOSEOrdering Facility: [facility] Address: [address] [place] [address] Result Comment: Nega tive for Staphylococcus aureus by PCR.Negative for MRSA by PCR Performed By: #### S APCR ####[facility] [id number] [facility] [place] [address] [place] CBC W Auto Differential pane l (Bld)on 06-24-2022 Basophils (Bld) [#/Vol] 0.06 10*3/uL Normal <0.11 [facility] Comment on above: Order Comment: Speci men Type: BLOOD SPECIMENOrdering Facility: [facility] Address: [address] [address] Performed By: #### 5 7021-8 ####[facility]ORY[facility] [id number] [place] [address] [place] Basophils/100 WBC (Bld) 0.7 % Normal [facility] Comment on above: Order Comment: Speci men Type: BLOOD SPECIMENOrdering Facility: [facility] Address: [address] [address] Performed By: #### 5 7021-8 ####[facility]ORYCLIA [id number] [address] [place] Differential cell count method Nom (Bld) Auto Normal [facility] Comment on above: Order Comment: Speci men Type: BLOOD SPECIMENOrdering Facility: [facility] Address: [address] [address] Performed By: #### 5 7021-8 ####[facility]ORY[facility] [id number] [place] [address] [place] Eosinophils (Bld) [#/Vol] 0.18 10*3/uL Normal <0.46 [facility] Comment on above: Order Comment: Speci men Type: BLOOD SPECIMENOrdering Facility: [facility] Address: [address] [address] Performed By: #### 5 7021-8 ####[facility] [id number] [place] [address] [place] Eosinophils/100 WBC (Bld) 2.0 % Normal [facility] Comment on above: Order Comment: Speci men Type: BLOOD SPECIMENOrdering Facility: [facility] Address: [address] [place] [address] Performed By: #### 5 7021-8 ####[facility]ORY[facility] [id number] [address] [place] Erythrocyte distribution width (RBC) [Ratio] 12.6 % Normal 11.5-15.0 [facility] Comment on above: Order Comment: Speci men Type: BLOOD SPECIMENOrdering Facility: [facility] Address: [address] [place] [address] Performed By: #### 5 7021-8 ####[facility] [id number] [address] [place] Hematocrit (Bld) [Volume fraction] 43.7 % Normal 36.0-46.0 [facility] Comment on above: Order Comment: Speci men Type: BLOOD SPECIMENOrdering Facility: [facility] Address: [address] [place] [address] Performed By: #### 5 7021-8 ####[facility]ORYCLIA [id number] [address] [place] Hemoglobin (Bld) [Mass/Vol] 14.2 g/dL Normal 11.5-15.5 [facility] Comment on above: Order Comment: Speci men Type: BLOOD SPECIMENOrdering Facility: [facility] Address: [address] [place] [address] Performed By: #### 5 7021-8 ####[facility]ORY[facility] [id number] [address] [place] Immature granulocytes (Bld) [#/Vol] 0.03 10*3/uL Normal <0.10 [facility] Comment on above: Order Comment: Speci men Type: BLOOD SPECIMENOrdering Facility: [facility] Address: [address] [place] [address] Performed By: #### 5 7021-8 ####[facility]ORY[facility] [id number] [place] [address] [place] Immature granulocytes/100 WBC (Bld) 0.3 % Normal [facility] Comment on above: Order Comment: Speci men Type: BLOOD SPECIMENOrdering Facility: [facility] Address: [address] [place] [address] Performed By: #### 5 7021-8 ####[facility]ORYCLIA [id number] [place] [address] [place] Lymphocytes (Bld) [#/Vol] 1.57 10*3/uL Normal 1.00-4.00 [facility] Comment on above: Order Comment: Speci men Type: BLOOD SPECIMENOrdering Facility: [facility] Address: [address] [place] [address] Performed By: #### 5 7021-8 ####[facility]ATORYCLIA [id number] [address] [place] Lymphocytes/100 WBC (Bld) 17.8 % Normal [facility] Comment on above: Order Comment: Speci men Type: BLOOD SPECIMENOrdering Facility: [facility] Address: [address] [place] [address] Performed By: #### 5 7021-8 ####[facility]ORYCLIA [id number] [place] [address] [place] MCH (RBC) [Entitic mass] 30.3 pg Normal 26.0-34.0 [facility] Comment on above: Order Comment: Speci men Type: BLOOD SPECIMENOrdering Facility: [facility] Address: [address] [place] [address] Performed By: #### 5 7021-8 ####[facility]ATORYCLIA [id number] [place] [address] [place] MCHC (RBC) [Mass/Vol] 32.5 g/dL Normal 30.5-36.0 [facility] Comment on above: Order Comment: Speci men Type: BLOOD SPECIMENOrdering Facility: [facility] Address: [address] [address] Performed By: #### 5 7021-8 ####[facility]ATORYCLIA [id number] [place] [address] [place] MCV (RBC) [Entitic vol] 93.2 fL Normal 80.0-100.0 [facility] Comment on above: Order Comment: Speci men Type: BLOOD SPECIMENOrdering Facility: [facility] Address: [address] [address] Performed By: #### 5 7021-8 ####[facility]ATORYCLIA [id number] [place] [address] [place] Monocytes (Bld) [#/Vol] 0.52 10*3/uL Normal <0.87 [facility] Comment on above: Order Comment: Speci men Type: BLOOD SPECIMENOrdering Facility: [facility] Address: [address] [address] Performed By: #### 5 7021-8 ####[facility]ORATORYCLIA [id number] [address] [place] Monocytes/100 WBC (Bld) 5.9 % Normal [facility] Comment on above: Order Comment: Speci men Type: BLOOD SPECIMENOrdering Facility: [facility] Address: [address] [place] [address] Performed By: #### 5 7021-8 ####[facility]ORATORYCLIA [id number] [place] [address] [place] Neutrophils (Bld) [#/Vol] 6.44 10*3/uL Normal 1.45-7.50 [facility] Comment on above: Order Comment: Speci men Type: BLOOD SPECIMENOrdering Facility: [facility] Address: [address] [place] [address] Performed By: #### 5 7021-8 ####[facility]ORATORYCLIA [id number] [place] [address] [place] Neutrophils/100 WBC (Bld) 73.3 % Normal [facility] Comment on above: Order Comment: Speci men Type: BLOOD SPECIMENOrdering Facility: [facility] Address: [address] [place] [address] Performed By: #### 5 7021-8 ####[facility]ATORYCLIA [id number] [place] [address] [place] Nucleated RBC (Bld) [#/Vol] 10*3/uL Normal <0.01 [facility] Comment on above: Order Comment: Speci men Type: BLOOD SPECIMENOrdering Facility: [facility] Address: [address] [place] [address] Performed By: #### 5 7021-8 ####[facility] LABORATORYCLIA [id number] [place] [address] [place] Nucleated RBC/100 WBC (Bld) [Ratio] 0.0 /100 WBC Normal [facility] Comment on above: Order Comment: Speci men Type: BLOOD SPECIMENOrdering Facility: [facility] Address: [address] [place] [address] Performed By: #### 5 7021-8 ####[facility]ORATORYCLIA [id number] [place] [address] [place] Platelet mean volume (Bld) [Entitic vol] 11.1 fL Normal 9.0-12.7 [facility] Comment on above: Order Comment: Speci men Type: BLOOD SPECIMENOrdering Facility: [facility] Address: [address] [place] [address] Performed By: #### 5 7021-8 ####[facility]ORATORYCLIA [id number] [place] [address] [place] Platelets (Bld) [#/Vol] 360 10*3/uL Normal 150-400 [facility] Comment on above: Order Comment: Speci men Type: BLOOD SPECIMENOrdering Facility: [facility] Address: [address] [address] Performed By: #### 5 7021-8 ####[facility]ORATORYCLIA [id number] [place] [address] [place] RBC (Bld) [#/Vol] 4.69 10*6/uL Normal 3.90-5.20 [facility] Comment on above: Order Comment: Speci men Type: BLOOD SPECIMENOrdering Facility: [facility] Address: [address] [address] Performed By: #### 5 7021-8 ####[facility]ORATORYCLIA [id number] [place] [address] [place] WBC (Bld) [#/Vol] 8.80 10*3/uL Normal 3.70-11.00 [facility] Comment on above: Order Comment: Speci men Type: BLOOD SPECIMENOrdering Facility: [facility] Address: [address] [place] [address] Performed By: #### 5 7021-8 ####[facility]ORATORYCLIA [id number] [place] [address] [place] CNOVon 06-24-2022 CNOV Normal [facility] CONFIRM BLOOD TYPEon 022 ABO A Normal [facility] Comment on above: Order Comment: Speci men Type: BLOOD SPECIMENOrdering Facility: [facility] Address: [address] [place] [address] Performed By: #### C ONABO ####[facility] BLOOD BANKCLIA [id number] [address] [place] Rh Nom (Bld) Positive Normal [facility] Comment on above: Order Comment: Speci men Type: BLOOD SPECIMENOrdering Facility: [facility] Address: [address] [place] [address] Performed By: #### C ONABO ####[facility] BLOOD BANKCLIA [id number] [place] [address] [place] CREATININE, BLOOD (POC)on Creatinine [Mass/Vol] 0.60 mg/dL Abnormal 0.7 - 1.4 mg/dL [facility] eGFR (POCT) [facility] CTA CHEST (GATED) W IVCONon 06-24-2022 CTA CHEST (GATED) W IVCON Invalid Interpretation Code [facility] Radiology Result ACTIONABLE Abnormal [facility] metabolic 2000 panelon 06-24-2022 Albumin [Mass/Vol] 4.5 g/dL Normal 3.9-4.9 [facility] Comment on above: Order Comment: Speci men Type: BLOOD SPECIMENOrdering Facility: [facility] Address: [address] [place] [address] Performed By: #### 2 532-0, 62774-2, 3 ####[facility] [id number] [place] [address] [place] ALP [Catalytic activity/Vol] 111 U/L Normal 34-123 [facility] Comment on above: Order Comment: Speci men Type: BLOOD SPECIMENOrdering Facility: [facility] Address: [address] [place] [address] Performed By: #### 2 532-0, 74288-5, 3 ####[facility] [id number] [place] [address] [place] ALT [Catalytic activity/Vol] 24 U/L Normal 7-38 [facility] Comment on above: Order Comment: Speci men Type: BLOOD SPECIMENOrdering Facility: [facility] Address: [address] [place], [place] [id number] Performed By: #### 2 532-0, 40787-7, 3 ####[facility] [id number] [place] [address] [place] Anion gap [Moles/Vol] 13 mmol/L Normal 9-18 [facility] Comment on above: Order Comment: Speci men Type: BLOOD SPECIMENOrdering Facility: [facility] Address: [address] [place] [address] Performed By: #### 2 532-0, 63383-7, 3015-3 ####[facility] [id number] [place] [address] [place] AST [Catalytic activity/Vol] 26 U/L Normal 13-35 [facility] Comment on above: Order Comment: Speci men Type: BLOOD SPECIMENOrdering Facility: [facility] Address: [address] Performed By: #### 2 532-0, 30707-3, 3015-3 ####[facility] [id number] [place] [address] [place] Bilirubin [Mass/Vol] 1.1 mg/dL Normal 0.2-1.3 [facility] Comment on above: Order Comment: Speci men Type: BLOOD SPECIMENOrdering Facility: [facility] Address: [address] [place], [place] [id number] Performed By: #### 2 532-0, 95833-3, 3 ####[facility] [id number] [place] [address] [place] Calcium [Mass/Vol] 10.6 mg/dL High 8.5-10.2 [facility] Comment on above: Order Comment: Speci men Type: BLOOD SPECIMENOrdering Facility: [facility] Address: [address] Performed By: #### 2 532-0, 28962-8, 3015-3 ####[facility] [id number] [place] [address] [place] Chloride [Moles/Vol] 106 mmol/L High 97-105 [facility] Comment on above: Order Comment: Speci men Type: BLOOD SPECIMENOrdering Facility: [facility] Address: [address] [place] [address] Performed By: #### 2 532-0, 96476-6, 3016-3 ####[facility] [id number] [place] [address] [place] CO2 [Moles/Vol] 24 mmol/L Normal 22-30 [facility] Comment on above: Order Comment: Speci men Type: BLOOD SPECIMENOrdering Facility: [facility] Address: [address] [place] [address] Performed By: #### 2 532-0, 58860-6, 6-3 ####[facility] [id number] [address] [place] Creatinine [Mass/Vol] 0.71 mg/dL Normal 0.58-0.96 [facility] Comment on above: Order Comment: Speci men Type: BLOOD SPECIMENOrdering Facility: [facility] Address: [address] [place] [address] Performed By: #### 2 532-0, 48658-1, 3015-3 ####[facility] [id number] [address] OF [facility] ESTIMATED GLOMERULAR FILTRATION RATE 97 mL/min/1.73m??? Normal >=60 [facility] Comment on above: Order Comment: Speci men Type: BLOOD SPECIMENOrdering Facility: [facility] Address: [address] [place] [address] Result Comment: Lola mated Glomerular Filtration Rate (eGFR) is calculated using the 2020 CKD-EPI creatinine equation. This equation utilizes serum creatinine, sex, and age as parameters. The creatinine assay has traceable calibration to isotope dilution-mass spectrometry. Refer to KDIGO guidelines for clinical interpretation. In patients with unstable renal function, e.g. those with acute kidney injury, the eGFR may not accurately reflect actual GFR. Performed By: #### 2 532-0, 12787-3, 3016-3 ####[facility] [id number] [place] [address] [place] Glucose [Mass/Vol] 95 mg/dL Normal 74-99 [facility] Comment on above: Order Comment: Speci men Type: BLOOD SPECIMENOrdering Facility: [facility] Address: [address] [place] [address] Result Comment: The [place] [employer] (ADA) provides guidance for cutoff values for fasting glucose and random glucose. The ADA defines fasting as no caloric intake for at least 8 hours. Fasting plasma glucose results between 100 to 125 mg/dL indicate increased risk for diabetes (prediabetes).Fasting plasma glucose results greater than or equal to 126 mg/dL meet the criteria for diagnosis of diabetes. In the absence of unequivocal hyperglycemia, results should be confirmed by repeat testing. In a patient with classic symptoms of hyperglycemia or hyperglycemic crisis, random plasma glucose results greater than or equal to 200 mg/dL meet the criteria for diagnosis of diabetes.Reference: Standards of Medical Care in Diabetes 2016, [place] [employer]. Diabetes Care. 2016.39(Suppl 1). Performed By: #### 2 532-0, 24187-9, 6-3 ####[facility] [id number] [place] [address] [place] Potassium [Moles/Vol] 4.7 mmol/L Normal 3.7-5.1 [facility] Comment on above: Order Comment: Speci men Type: BLOOD SPECIMENOrdering Facility: [facility] Address: [address] [place], [place] [address] Performed By: #### 2 532-0, 14502-6, 3015-3 ####[facility] [id number] [place] [id number] [place] Protein [Mass/Vol] 7.1 g/dL Normal 6.3-8.0 [facility] Comment on above: Order Comment: Speci men Type: BLOOD SPECIMENOrdering Facility: [facility] Address: [address] [place] [address] Performed By: #### 2 532-0, 78071-7, 6-3 ####[facility] [id number] [place] [address] [place] Sodium [Moles/Vol] 143 mmol/L Normal 136-144 [facility] Comment on above: Order Comment: Speci men Type: BLOOD SPECIMENOrdering Facility: [facility] Address: [address] [place] [address] Performed By: #### 2 532-0, 31193-6, 3016-3 ####[facility] [id number] [place] [address] [place] Urea nitrogen [Mass/Vol] 17 mg/dL Normal 7-21 [facility] Comment on above: Order Comment: Speci men Type: BLOOD SPECIMENOrdering Facility: [facility] Address: [address] [place] [address] Performed By: #### 2 532-0, 77162-2, 6-3 ####[facility] [id number] [place] [address] [place] ECG COMPLETEon 06-24-2022 ECG COMPLETE Normal [facility] LDH SerPl-cCncon 06-24-2022 LDH [Catalytic activity/Vol] 267 U/L High 135-214 [facility] Comment on above: Order Comment: Speci men Type: BLOOD SPECIMENOrdering Facility: [facility] Address: [address] [place] [address] Performed By: #### 2 532-0, 73374-3, 3016-3 ####[facility] [id number] [place] [address] [place] PT panel Coag (PPP)on 2021 INR Coag (PPP) [Relative time] 1.0 {INR} Normal 0.9-1.3 [facility] Comment on above: Order Comment: Speci men Type: BLOOD SPECIMENOrdering Facility: [facility] Address: [address] [place], [place] [address] Result Comment: Lilibeth min K Antagonist (VKA) Therapeutic Range: INR 2 to 3 (Target INR of 2.5)Note: For patients treated with VKA drugs, such as warfarin, the [place] [employer] 2012 Guideline recommends a therapeutic INR range of 2 to 3 (target INR of 2.5). This recommendation includes high-risk patients with antiphospholipid syndrome with previous arterial or venous thromboembolism, current-generation mechanical or bioprosthetic aortic heart valve replacement.Note: Patients with mechanical aortic valve replacement and additional risk factors for thromboembolic events (atrial fibrillation, previous thromboembolism, LV dysfunction, hypercoagulable conditions) or an older generation mechanical AVR (i.e., ball in-Cage) or any mechanical MVR should have a INR therapeutic range of 2.5 to 3.5 (target INR of 3).Sarah GH, et al. Chest 2012, 141:7S-47SRosalio RA, et al. [facility] 2017, 70: 252-289 Performed By: #### 1 4979-9, 45866-2 ####[facility] [id number] [place] [address] [place] PT Coag (PPP) [Time] 10.0 s Normal 9.7-13.0 [facility] Comment on above: Order Comment: Speci men Type: BLOOD SPECIMENOrdering Facility: [facility] Address: [address] [place] [address] Performed By: #### 1 4979-9, 71427-2 ####[facility] [id number] [place] [address] [place] SARS-CoV-2 RNA Resp Ql TERI+p robeon 06-24-2022 SARS-CoV-2 (COVID-19) RNA TERI+probe Ql (Resp) Normal [facility] Comment on above: Performed By: #### 9 4500-6 ####[facility] [id number] [place] [address] [place] TSH SerPl-aCncon 06-24-2022 TSH Qn 1.350 m[IU]/L Normal 0.270-4.20 0 [facility] Comment on above: Order Comment: Speci men Type: BLOOD SPECIMENOrdering Facility: [facility] Address: [address] [place] [address] Performed By: #### 2 532-0, 03963-4, 3016-3 ####[facility] [id number] [address] OF [facility] TYPE AND SCREEN,30 DAYon ABO A Normal [facility] Comment on above: Order Comment: Speci men Type: BLOOD SPECIMENOrdering Facility: [facility] Address: [address] [place] [address] Performed By: #### T SCR30 ####[facility] BLOOD BANKCLIA [id number] [address] HISTORICAL AB SCR STATUS Negative Normal [facility] Comment on above: Order Comment: Speci men Type: BLOOD SPECIMENOrdering Facility: [facility] Address: [address] [place] [address] Performed By: #### T SCR30 ####[facility] BLOOD BANKCLIA [id number] [address] Rh Nom (Bld) Positive Normal [facility] Comment on above: Order Comment: Speci men Type: BLOOD SPECIMENOrdering Facility: [facility] Address: [address] [place] [address] Performed By: #### T SCR30 ####[facility] BLOOD BANKCLIA [id number] [address] [place] URINALYSIS, DIPSTICK ONLYon 06-24-2022 Bilirubin Ql (U) Negative Normal Negative [facility] Comment on above: Order Comment: Speci men Type: URINE SPECIMENOrdering Facility: [facility] Address: [address] [place] [address] Performed By: #### U A ####[facility] [id number] [place] [address] [place] Clarity (Unsp spec) Clear Normal Clear [facility] Comment on above: Order Comment: Speci men Type: URINE SPECIMENOrdering Facility: [facility] Address: [address] [place] [address] Performed By: #### U A ####[facility] [id number] [place] [address] [place] [facility] Color (U) Light Yellow Normal Yellow [facility] Comment on above: Order Comment: Speci men Type: URINE SPECIMENOrdering Facility: [facility] Address: [address] [place] [address] Performed By: #### U A ####[facility] [id number] [place] [address] [place] Glucose Test strip (U) [Mass/Vol] Negative Normal Negative [facility] Comment on above: Order Comment: Speci men Type: URINE SPECIMENOrdering Facility: [facility] Address: [address] [place] [address] Performed By: #### U A ####[facility] [id number] [place] [address] [place] Hemoglobin Ql (U) Negative Normal Negative [facility] Comment on above: Order Comment: Speci men Type: URINE SPECIMENOrdering Facility: [facility] Address: [address] [place] [address] Performed By: #### U A ####[facility] [id number] [address] [place] Ketones Ql (U) Negative Normal Negative [facility] Comment on above: Order Comment: Speci men Type: URINE SPECIMENOrdering Facility: [facility] Address: [address] [place] [address] Performed By: #### U A ####[facility] [id number] [place] [address] [place] Leukocyte esterase Test strip Ql (U) Negative Normal Negative [facility] Comment on above: Order Comment: Speci men Type: URINE SPECIMENOrdering Facility: [facility] Address: [address] [place] [address] Performed By: #### U A ####[facility] [id number] [place] [address] [place] Nitrite Ql (U) Negative Normal Negative [facility] Comment on above: Order Comment: Speci men Type: URINE SPECIMENOrdering Facility: [facility] Address: [address] [place] [address] Performed By: #### U A ####[facility] [id number] [place] [address] [place] pH (U) 6.5 [pH] Normal 5.0-8.0 [facility] Comment on above: Order Comment: Speci men Type: URINE SPECIMENOrdering Facility: [facility] Address: [address] [place] [address] Performed By: #### U A ####[facility] [id number] [address] [place] Protein (U) [Mass/Vol] Trace Abnormal Negative [facility] Comment on above: Order Comment: Speci men Type: URINE SPECIMENOrdering Facility: [facility] Address: [address] [place] [address] Performed By: #### U A ####[facility] [id number] [place] [address] [place] Specific gravity (U) [Rel density] 1.010 Normal 1.005-1.03 0 [facility] Comment on above: Order Comment: Speci men Type: URINE SPECIMENOrdering Facility: [facility] Address: [address] [place] [address] Result Comment: Resu lt rechecked. Performed By: #### U A ####[facility] [id number] [place] [address] [place] Urobilinogen Ql (U) Negative Normal Negative [facility] Comment on above: Order Comment: Speci men Type: URINE SPECIMENOrdering Facility: [facility] Address: [address] [place] [address] Performed By: #### U A ####[facility] [id number] [place] [address] [place] aPTT PPPon 06-24-2022 aPTT Coag (PPP) [Time] 26.0 s Normal 23.0-32.4 [facility] Comment on above: Order Comment: Speci men Type: BLOOD SPECIMENOrdering Facility: [facility] Address: [address] [place] [address] Performed By: #### 1 4979-9, 79109-9 ####[facility] [id number] [place] [address] [place] CNPNon 06-01-2022 CNPN Normal [facility] CNPNon 05-28-2022 CNPN Normal [facility] Base excessOrdered By: Dr. Maria Isabel ny on 05-19-2022 Base excess Calc (BldV) [Moles/Vol] 2 mmol/L -2-2 [facility] Basophil percentageOrdered B y: Dr. Cullen on 05-19-2022 Basophil percentage 27.4 mmol/L 22-26 [facility] Basophils/100 WBC (Bld) 97 % 95-99 [facility] CO2 (BldA) [Partial pressure ]Ordered By: Dr. Cullen on 05-19-2022 CO2 (Bld) [Partial pressure] 47.1 mm[Hg] 35-45 [facility] HCO3 (BldA) [Moles/Vol]Order ed By: Dr. Cullen on 05-19-2022 HCO3 (Bld) [Moles/Vol] 28 mmol/L 22-26 [facility] Laboratory - Chemistry and C hemistry - challengeOrdered By: Dr. Cullen on 05-19-2022 CO2 [Moles/Vol] 30 mmol/L 23-33 [facility] No Panel InformationOrdered By: Dr. Cullen on 05-19-2022 Bed Mix Venous Bld PCO2 at Pat Temp 51.9 mmHg 41-51 [facility] Blood Gas Specimen Type ELIZA [facility] Venous Blood Base Excess 3 mmol/L -1.0-3.5 [facility] Blood Gas Total CO2 29 mmol/L [facility] Bld Gas Crit Called To/Read Back By Yes [facility] Oxygen (BldA) [Partial press ure]Ordered By: Dr. Cullen on 05-19-2022 Oxygen (Bld) [Partial pressure] 95 mmHG 75-100 [facility] PO2 venousOrdered By: Dr. Willie hernandez on 05-19-2022 Oxygen (BldV) [Partial pressure] 37 mm[Hg] 25-40 [facility] Vital signsOrdered By: Dr. Maria Isabel ny on 05-19-2022 Oxygen saturation in Blood 66 % 50-70 [facility] pH measurementOrdered By: Dr Deon Cullen on 05-19-2022 pH (Unsp spec) 7.35 [pH] 7.32-7.42 [facility] pH (Unsp spec) 7.37 [pH] 7.35-7.45 [facility] Absolute lymphocyte countOrd ered By: Dr. Cullen on 05-04-2022 Lymphocytes Auto (Unsp spec) [#/Vol] 1.87 10*3/uL 0.83-4.51 [facility] Basophil percentageOrdered B y: Dr. Cullen on 05-04-2022 Basophils/100 WBC (Bld) 0.7 % 0-1 [facility] Chloride [Moles/Vol] 107 mmol/L 98-107 [facility] Eosinophils/100 WBC (Bld) 2.4 % 0-5 [facility] Glucose [Mass/Vol] 103 mg/dL 74-106 [facility] Comment on above: Fasting Glucose resu lt from 100 to 125 mg/dL suggests IMPAIRED HOMEOSTASIS per A.D.A. criteria. Neutrophils (Bld) [#/Vol] 5.0 10*3/uL 2.0-7.7 [facility] Neutrophils/100 WBC (Bld) 65.4 % 47-70 [facility] Potassium [Moles/Vol] 3.9 mmol/L 3.5-5.1 [facility] Sodium [Moles/Vol] 142 mmol/L 136-145 [facility] WBC (Bld) [#/Vol] 7.7 10*3/uL 4.4-11.0 [facility] Blood erythrocytes count (nu mber/volume)Ordered By: Dr. Cullen on 05-04-2022 RBC (Bld) [#/Vol] 4.59 10*6/uL 4.2-5.4 [facility] Blood hemoglobin measurement (mass/volume)Ordered By: Dr. Cullen on 05-04-2022 Hemoglobin (Bld) [Mass/Vol] 14.3 g/dL 12.0-15.0 [facility] Blood lymphocytes/100 leukoc ytesOrdered By: Dr. Cullen on 05-04-2022 Lymphocytes/100 WBC (Bld) 24.4 % 19-41 [facility] Blood monocytes/100 leukocyt esOrdered By: Dr. Cullen on 05-04-2022 Monocytes/100 WBC (Bld) 6.7 % 0-10 [facility] Blood platelet mean volumeOr dered By: Dr. Cullen on 05-04-2022 Platelet mean volume (Bld) [Entitic vol] 10.8 fL 6.2-12.0 [facility] Determination of erythrocyte mean corpuscular volume (MCV)Ordered By: Dr. Cullen on 05-04-2022 MCV (RBC) [Entitic vol] 90.2 fL 81-99 [facility] Hematocrit Auto (Bld) [Volum e fraction]Ordered By: Dr. Cullen on 05-04-2022 Hematocrit (Bld) [Volume fraction] 41.4 % 37-47 [facility] INR in Blood by Coagulation assayOrdered By: Dr. Cullen on 05-04-2022 INR Coag (Bld) [Relative time] 1.0 {INR} [facility] Laboratory - Chemistry and C hemistry - challengeOrdered By: Dr. Cullen on 05-04-2022 CO2 [Moles/Vol] 25.0 mmol/L 21.0-32.0 [facility] Urea nitrogen/Creatinine [Mass ratio] 23.3 mg/mg 10-20 [facility] Laboratory - CoagulationOrde red By: Dr. Cullen on 05-04-2022 aPTT Coag (Bld) [Time] 29.9 s 24.1-36.2 [facility] PT Coag (PPP) [Time] 12.7 s 11.7-14.9 [facility] Laboratory - Hematology and Cell countsOrdered By: Dr. Cullen on 05-04-2022 Erythrocyte distribution width (RBC) [Entitic vol] 41.2 fL 35.1-43.9 [facility] Erythrocyte distribution width (RBC) [Ratio] 12.5 % 11.6-14.6 [facility] Immature granulocytes/100 WBC (Bld) 0.400 % 0.0-0.9 [facility] Comment on above: IG% - Immature Granu locytes (promyelocytes, myelocytes and metamyelocytes) > 1% indicates that a LEFT SHIFT is Present. MCH (RBC) [Entitic mass] 31.2 pg 27.0-32.0 [facility] Nucleated RBC/100 WBC (Bld) [Ratio] 0 % 0-5 [facility] MCHC Auto (RBC) [Mass/Vol]Or dered By: Dr. Cullen on 05-04-2022 MCHC (RBC) [Mass/Vol] 34.5 g/dL 32-36 [facility] No Panel InformationOrdered By: Dr. Cullen on 05-04-2022 Estimated GFR (MDRD) Amer 104 mL/min >60 [facility] Comment on above: GFR Calc Estimated GFR (MDRD) Non-Af Amer 86 mL/min >60 [facility] Comment on above: Non- GFR Calc Platelets bldOrdered By: Dr. Cullen on 05-04-2022 Platelets (Bld) [#/Vol] 356 10*3/uL 150-450 [facility] Serum or plasma calcium jose urement (mass/volume)Ordered By: Dr. Cullen on 05-04-2022 Calcium [Mass/Vol] 10.2 mg/dL 8.5-10.1 [facility] Serum or plasma creatinine m easurement (mass/volume)Ordered By: Dr. Cullen on 05-04-2022 Creatinine [Mass/Vol] 0.73 mg/dL 0.55-1.02 [facility] Comment on above: The validity of the calculated GFR & GFRAA in patients over 70 years has not been determined. Clinical correlation is essential. Serum or plasma urea nitroge n measurement (mass/volume)Ordered By: Dr. Cullen on 05-04-2022 Urea nitrogen [Mass/Vol] 17 mg/dL 02-02 [facility] Thin prep Papanicolaou smear with manual screeningOrdered By: Dr. Cullen on 05-04-2022 Thin prep Papanicolaou smear with manual screening 10 5-15 [facility] Absolute lymphocyte counton 02-02-2022 Lymphocytes Auto (Unsp spec) [#/Vol] 1.81 10*3/uL 0.83-4.51 [facility] Work Phone: Absolute reticulocyte counto n 02-02-2022 Reticulocytes (Bld) [#/Vol] 0.00 10*3/uL 0-5 [facility] Work Phone: Basophil percentageon 2021 Basophil percentage 2.4 mg/dL 2.5-4.9 [facility] Work Phone: Bilirubin [Mass/Vol] 0.90 mg/dL 0.20-1.00 [facility] Work Phone: Comment on above: For patients on eltr ombopag therapy, use of [employer] [place] TBIL is not recommended. Chloride [Moles/Vol] 111 mmol/L 98-107 [facility] Work Phone: Cholesterol [Mass/Vol] 184 mg/dL <200 [facility] Work Phone: Comment on above: <200 mg/dL Desirable 200-240 mg/dL Borderline >240 mg/dL High Risk Glucose [Mass/Vol] 100 mg/dL 74-106 [facility] Work Phone: Comment on above: Fasting Glucose resu lt from 100 to 125 mg/dL suggests IMPAIRED HOMEOSTASIS per A.D.A. criteria. Neutrophils (Bld) [#/Vol] 5.0 10*3/uL 2.0-7.7 [facility] Work Phone: Potassium [Moles/Vol] 3.8 mmol/L 3.5-5.1 [facility] Work Phone: Protein [Mass/Vol] 6.9 g/dL 6.4-8.2 [facility] Work Phone: Sodium [Moles/Vol] 140 mmol/L 136-145 [facility] Work Phone: Triglyceride [Mass/Vol] 105 mg/dL <199 [facility] Work Phone: Comment on above: The drugs N-Acetylcy steine and Metamizole may falsely depress this assay.Serum Triglycerides Reference Interval Normal <150 mg/dL Borderline high 150 - 199 mg/dL High 200 - 499 mg/dL Very High > or = 500 mg/dL WBC (Bld) [#/Vol] 7.7 10*3/uL 4.4-11.0 [facility] Work Phone: Bilirubin Test strip Ql (U)o n 02-02-2022 Bilirubin Ql (U) Negative Negative [facility] Work Phone: Blood erythrocytes count (nu mber/volume)on 02-02-2022 RBC (Bld) [#/Vol] 4.38 10*6/uL 4.2-5.4 [facility] Work Phone: Blood hemoglobin measurement (mass/volume)on 02-02-2022 Hemoglobin (Bld) [Mass/Vol] 13.3 g/dL 12.0-15.0 [facility] Work Phone: Blood platelet mean volumeon 02-02-2022 Platelet mean volume (Bld) [Entitic vol] 11.0 fL 6.2-12.0 [facility] Work Phone: Determination of erythrocyte mean corpuscular volume (MCV)on 02-02-2022 MCV (RBC) [Entitic vol] 91.8 fL 81-99 [facility] Work Phone: Direct bilirubinon Bilirubin.direct [Mass/Vol] 0.18 mg/dL 0.00-0.30 [facility] Work Phone: Hematocrit Auto (Bld) [Volum e fraction]on 02-02-2022 Hematocrit (Bld) [Volume fraction] 40.2 % 37-47 [facility] Work Phone: Ketones Test strip Ql (U)on 02-02-2022 Ketones Ql (U) Negative Negative [facility] Work Phone: Laboratory - Chemistry and C hemistry - challengeon 02-02-2022 ALP [Catalytic activity/Vol] 98 U/L 45-117 [facility] Work Phone: ALT [Catalytic activity/Vol] 27 U/L 13-56 [facility] Work Phone: Cholesterol.total/Cho lesterol in HDL [Mass ratio] 2.80 {ratio} [facility] Work Phone: CO2 [Moles/Vol] 25.0 mmol/L 21.0-32.0 [facility] Work Phone: Globulin (S) [Mass/Vol] 3.5 g/dL 2.2-4.2 [facility] Work Phone: Urea nitrogen/Creatinine [Mass ratio] 32.8 mg/mg 10-20 [facility] Work Phone: Laboratory - Hematology and Cell countson 02-02-2022 Erythrocyte distribution width (RBC) [Entitic vol] 39.8 fL 35.1-43.9 [facility] Work Phone: Erythrocyte distribution width (RBC) [Ratio] 11.9 % 11.6-14.6 [facility] Work Phone: MCH (RBC) [Entitic mass] 30.4 pg 27.0-32.0 [facility] Work Phone: Nucleated RBC/100 WBC (Bld) [Ratio] 0 % 0-5 [facility] Work Phone: MCHC Auto (RBC) [Mass/Vol]on 02-02-2022 MCHC (RBC) [Mass/Vol] 33.1 g/dL 32-36 [facility] Work Phone: Nitrite Test strip Ql (U)on 02-02-2022 Nitrite Ql (U) Negative Negative [facility] Work Phone: No Panel Informationon 02-02 Estimated GFR (MDRD) Amer 115 mL/min >60 [facility] Work Phone: Comment on above: GFR Calc Estimated GFR (MDRD) Non-Af Amer 95 mL/min >60 [facility] Work Phone: Comment on above: Non- GFR Calc Urine Microalbumin/Creatini ne Ratio 6.9 mg/g CRE <30 [facility] Work Phone: Vitamin D 25-Hydroxy 55.6 ng/mL [facility] Work Phone: Comment on above: Vitamin D 25(OH) Sta tus Range Deficiency <20 ng/mL (50nmol/L) Insufficiency 20 - 30 ng/mL (50 - 75 nmol/L) Sufficiency 30 - 100 ng/mL (75 - 250 nmol/L) Toxicity >100 ng/mL (>250 nmol/L) Platelets bldon 02-02-2022 Platelets (Bld) [#/Vol] 297 10*3/uL 150-450 [facility] Work Phone: Protein Test strip Ql (U)on 02-02-2022 Protein Ql (U) 15 mg/dl Negative [facility] Work Phone: Segmented neutrophils/100 WB C Auto (Bld)on 02-02-2022 Segmented neutrophils/100 WBC (Bld) 64.9 % 47-70 [facility] Work Phone: Serum or plasma albumin jose urement (mass/volume)on 02-02-2022 Albumin [Mass/Vol] 3.4 g/dL 3.2-5.0 [facility] Work Phone: Serum or plasma albumin/glob ulin mass ratioon 02-02-2022 Albumin/Globulin [Mass ratio] 1.0 {ratio} 0.9-2.4 [facility] Work Phone: Serum or plasma calcium jose urement (mass/volume)on 02-02-2022 Calcium [Mass/Vol] 9.1 mg/dL 8.5-10.1 [facility] Work Phone: Serum or plasma cholesterol in HDL measurement (mass/volume)on 02-02-2022 Cholesterol in HDL [Mass/Vol] 66 mg/dL >40 [facility] Work Phone: Comment on above: The drugs N-Acetylcy steine and Metamizole may falsely depress this assay. Reference Range HDL <40 mg/dL Low HDL Cholesterol HDL >or= 60 mg/dL High HDL Cholesterol Serum or plasma cholesterol in VLDL measurement (mass/volume)on 02-02-2022 Cholesterol in VLDL [Mass/Vol] 21 mg/dL 5-40 [facility] Work Phone: Serum or plasma creatinine m easurement (mass/volume)on 02-02-2022 Creatinine [Mass/Vol] 0.67 mg/dL 0.55-1.02 [facility] Work Phone: Comment on above: The validity of the calculated GFR & GFRAA in patients over 70 years has not been determined. Clinical correlation is essential. Serum or plasma low density lipoprotein (LDL) cholesterol measurement (mass/volume)on 02-02-2022 Cholesterol in LDL [Mass/Vol] 97 mg/dL 0-130 [facility] Work Phone: Serum or plasma urea nitroge n measurement (mass/volume)on 02-02-2022 Urea nitrogen [Mass/Vol] 22 mg/dL 7-18 [facility] Work Phone: Serum or plasma uric acid me asurement (mass/volume)on 02-02-2022 Urate [Mass/Vol] 4.8 mg/dL 2.6-6.0 [facility] Work Phone: Comment on above: The drugs N-Acetylcy steine and Metamizole may falsely depress this assay. Thin prep Papanicolaou smear with manual screeningon 02-02-2022 Thin prep Papanicolaou smear with manual screening 20 U/L 15-37 [facility] Work Phone: Thin prep Papanicolaou smear with manual screening 4 5-15 [facility] Work Phone: Thin prep Papanicolaou smear with manual screening 219 U/L 84-246 [facility] Work Phone: Thin prep Papanicolaou smear with manual screening 14.7 mg/L NO RANGE EST. [facility] Work Phone: Urine blood detectionon 01-16 RBC Ql (U) 10 /ul Negative [facility] Work Phone: Urine clarityon 02-02-2022 Clarity (U) Clear Clear [facility] Work Phone: Urine color determinationon 02-02-2022 Color (U) Yellow Yellow [facility] Work Phone: Urine creatinine measurement (mass/volume)on 02-02-2022 Creatinine (U) [Mass/Vol] 212.00 mg/dL NO RANGE EST. [facility] Work Phone: Urine glucose detectionon Glucose Ql (U) Normal mg/dl Normal [facility] Work Phone: Urine leukocyte esterase det ection by dipstickon 02-02-2022 Leukocyte esterase Test strip Ql (U) 25 /ul Negative [facility] Work Phone: Urine pHon 02-02-2022 pH (U) 6.0 [pH] 5.0 - 8.0 [facility] Work Phone: Urine specific gravity measu rementon 02-02-2022 Specific gravity (U) [Rel density] 1.020 1.002-1.03 0 [facility] Work Phone: Urobilinogen Auto test strip Ql (U)on 02-02-2022 Urobilinogen Ql (U) 1 mg/dl Normal [facility] Work Phone: Whole blood hemoglobin A1c/t otal hemoglobin ratio (mass fraction)on 02-02-2022 HbA1c (Bld) [Mass fraction] 5.1 % 3.8-5.6 [facility] Work Phone: Comment on above: Normal < 5.7 % Predi abetic 5.7 - 6.4 % Diabetic >or= 6.5 % Please note range changes. Absolute lymphocyte counton 01-14-2022 Lymphocytes Auto (Unsp spec) [#/Vol] 1.75 10*3/uL 0.83-4.51 [facility] Work Phone: Basophil percentageon 2021 Basophil percentage 0-5 SEEN /hpf 0-5 [facility] Work Phone: Basophils/100 WBC (Bld) 0.6 % 0-1 [facility] Work Phone: Bilirubin [Mass/Vol] 0.90 mg/dL 0.20-1.00 [facility] Work Phone: Comment on above: For patients on eltr ombopag therapy, use of Dimension [place] TBIL is not recommended. Chloride [Moles/Vol] 109 mmol/L 98-107 [facility] Work Phone: Eosinophils/100 WBC (Bld) 5.1 % 0-5 [facility] Work Phone: Glucose [Mass/Vol] 103 mg/dL 74-106 [facility] Work Phone: Comment on above: Fasting Glucose resu lt from 100 to 125 mg/dL suggests IMPAIRED HOMEOSTASIS per A.D.A. criteria. Neutrophils (Bld) [#/Vol] 4.2 10*3/uL 2.0-7.7 [facility] Work Phone: Neutrophils/100 WBC (Bld) 61.3 % 47-70 [facility] Work Phone: Potassium [Moles/Vol] 3.4 mmol/L 3.5-5.1 [facility] Work Phone: Protein [Mass/Vol] 6.9 g/dL 6.4-8.2 [facility] Work Phone: Sodium [Moles/Vol] 142 mmol/L 136-145 [facility] Work Phone: WBC (Bld) [#/Vol] 6.9 10*3/uL 4.4-11.0 [facility] Work Phone: Bilirubin Test strip Ql (U)o n 01-14-2022 Bilirubin Ql (U) 1 mg/dL Negative [facility] Work Phone: Comment on above: COLOR OF URINE MAY A FFECT DIPSTICK RESULTS. Blood erythrocytes count (nu mber/volume)on 01-14-2022 RBC (Bld) [#/Vol] 4.31 10*6/uL 4.2-5.4 [facility] Work Phone: Blood hemoglobin measurement (mass/volume)on 01-14-2022 Hemoglobin (Bld) [Mass/Vol] 13.3 g/dL 12.0-15.0 [facility] Work Phone: Blood lymphocytes/100 leukoc yteson 01-14-2022 Lymphocytes/100 WBC (Bld) 25.5 % 19-41 [facility] Work Phone: Blood monocytes/100 leukocyt eson 01-14-2022 Monocytes/100 WBC (Bld) 7.4 % 0-10 [facility] Work Phone: Blood platelet mean volumeon 01-14-2022 Platelet mean volume (Bld) [Entitic vol] 11.3 fL 6.2-12.0 [facility] Work Phone: Determination of erythrocyte mean corpuscular volume (MCV)on 01-14-2022 MCV (RBC) [Entitic vol] 90.5 fL 81-99 [facility] Work Phone: Hematocrit Auto (Bld) [Volum e fraction]on 01-14-2022 Hematocrit (Bld) [Volume fraction] 39.0 % 37-47 [facility] Work Phone: Ketones Test strip Ql (U)on 01-14-2022 Ketones Ql (U) Negative Negative [facility] Work Phone: Laboratory - Chemistry and C hemistry - challengeon 01-14-2022 ALP [Catalytic activity/Vol] 102 U/L 45-117 [facility] Work Phone: ALT [Catalytic activity/Vol] 31 U/L 13-56 [facility] Work Phone: CO2 [Moles/Vol] 24.0 mmol/L 21.0-32.0 [facility] Work Phone: Globulin (S) [Mass/Vol] 3.4 g/dL 2.2-4.2 [facility] Work Phone: Urea nitrogen/Creatinine [Mass ratio] 33.8 mg/mg 10-20 [facility] Work Phone: Laboratory - Hematology and Cell countson 01-14-2022 Erythrocyte distribution width (RBC) [Entitic vol] 39.0 fL 35.1-43.9 [facility] Work Phone: Erythrocyte distribution width (RBC) [Ratio] 11.9 % 11.6-14.6 [facility] Work Phone: Immature granulocytes/100 WBC (Bld) 0.100 % 0.0-0.9 [facility] Work Phone: Comment on above: IG% - Immature Granu locytes (promyelocytes, myelocytes and metamyelocytes) > 1% indicates that a LEFT SHIFT is Present. MCH (RBC) [Entitic mass] 30.9 pg 27.0-32.0 [facility] Work Phone: Nucleated RBC/100 WBC (Bld) [Ratio] 0 % 0-5 [facility] Work Phone: MCHC Auto (RBC) [Mass/Vol]on 01-14-2022 MCHC (RBC) [Mass/Vol] 34.1 g/dL 32-36 [facility] Work Phone: Mucus LM Ql (Urine sed)on Mucus Ql (Urine sed) 1+ /hpf [facility] Work Phone: Nitrite Test strip Ql (U)on 01-14-2022 Nitrite Ql (U) Negative Negative [facility] Work Phone: No Panel Informationon 01-14 Estimated GFR (MDRD) Amer 119 mL/min >60 [facility] Work Phone: Comment on above: GFR Calc Estimated GFR (MDRD) Non-Af Amer 99 mL/min >60 [facility] Work Phone: Comment on above: Non- GFR Calc Thyroid Stimulating Hormone (TSH) 2.05 uIU/mL 0.358-3.74 [facility] Work Phone: Platelets bldon 01-14-2022 Platelets (Bld) [#/Vol] 311 10*3/uL 150-450 [facility] Work Phone: Protein Test strip Ql (U)on 01-14-2022 Protein Ql (U) 30 mg/dl Negative [facility] Work Phone: Serum or plasma albumin jose urement (mass/volume)on 01-14-2022 Albumin [Mass/Vol] 3.5 g/dL 3.2-5.0 [facility] Work Phone: Serum or plasma albumin/glob ulin mass ratioon 01-14-2022 Albumin/Globulin [Mass ratio] 1.0 {ratio} 0.9-2.4 [facility] Work Phone: Serum or plasma calcium jose urement (mass/volume)on 01-14-2022 Calcium [Mass/Vol] 9.3 mg/dL 8.5-10.1 [facility] Work Phone: Serum or plasma creatinine m easurement (mass/volume)on 01-14-2022 Creatinine [Mass/Vol] 0.65 mg/dL 0.55-1.02 [facility] Work Phone: Comment on above: The validity of the calculated GFR & GFRAA in patients over 70 years has not been determined. Clinical correlation is essential. Serum or plasma urea nitroge n measurement (mass/volume)on 01-14-2022 Urea nitrogen [Mass/Vol] 22 mg/dL 7-18 [facility] Work Phone: Squamous epithelial cells de tection in urine sediment by light microscopyon 01-14-2022 Epithelial cells.squamous LM Ql (Urine sed) 0-5 SEEN /hpf 5-10 [facility] Work Phone: Thin prep Papanicolaou smear with manual screeningon 01-14-2022 Thin prep Papanicolaou smear with manual screening 21 U/L 15-37 [facility] Work Phone: Thin prep Papanicolaou smear with manual screening 9 5-15 [facility] Work Phone: Urine blood detectionon 12-18 RBC Ql (U) 10 /ul Negative [facility] Work Phone: RBC Ql (U) 0-5 SEEN /hpf 0-5 [facility] Work Phone: Urine clarityon 01-14-2022 Clarity (U) Sl. Cloudy Clear [facility] Work Phone: Urine color determinationon 01-14-2022 Color (U) Yellow Yellow [facility] Work Phone: Urine glucose detectionon Glucose Ql (U) Normal mg/dl Normal [facility] Work Phone: Urine leukocyte esterase det ection by dipstickon 01-14-2022 Leukocyte esterase Test strip Ql (U) 25 /ul Negative [facility] Work Phone: Urine pHon 01-14-2022 pH (U) 5.0 [pH] 5.0 - 8.0 [facility] Work Phone: Urine sediment bacteria coun t by microscopy (number/high power field)on 01-14-2022 Bacteria LM.HPF (Urine sed) [#/Area] 2 /[HPF] None Seen [facility] Work Phone: Urine specific gravity measu rementon 01-14-2022 Specific gravity (U) [Rel density] 1.025 1.002-1.03 0 [facility] Work Phone: Urobilinogen Auto test strip Ql (U)on 01-14-2022 Urobilinogen Ql (U) 1 mg/dl Normal [facility] Work Phone: Basophil percentageon 2021 Chloride [Moles/Vol] 103 mmol/L 98-107 [facility] Work Phone: Glucose [Mass/Vol] 115 mg/dL 74-106 [facility] Work Phone: Comment on above: Fasting Glucose resu lt from 100 to 125 mg/dL suggests IMPAIRED HOMEOSTASIS per A.D.A. criteria. Potassium [Moles/Vol] 3.3 mmol/L 3.5-5.1 [facility] Work Phone: Sodium [Moles/Vol] 138 mmol/L 136-145 [facility] Work Phone: Laboratory - Chemistry and C hemistry - challengeon 12-22-2021 CO2 [Moles/Vol] 28.0 mmol/L 21.0-32.0 [facility] Work Phone: Urea nitrogen/Creatinine [Mass ratio] 25.2 mg/mg 10-20 [facility] Work Phone: No Panel Informationon 12-22 Estimated GFR (MDRD) Amer 81 mL/min >60 [facility] Work Phone: Comment on above: GFR Calc Estimated GFR (MDRD) Non-Af Amer 67 mL/min >60 [facility] Work Phone: Comment on above: Non- GFR Calc Serum or plasma calcium jose urement (mass/volume)on 12-22-2021 Calcium [Mass/Vol] 9.9 mg/dL 8.5-10.1 [facility] Work Phone: Serum or plasma creatinine m easurement (mass/volume)on 12-22-2021 Creatinine [Mass/Vol] 0.91 mg/dL 0.55-1.02 [facility] Work Phone: Comment on above: The validity of the calculated GFR & GFRAA in patients over 70 years has not been determined. Clinical correlation is essential. Serum or plasma urea nitroge n measurement (mass/volume)on 12-22-2021 Urea nitrogen [Mass/Vol] 23 mg/dL 7-18 [facility] Work Phone: Thin prep Papanicolaou smear with manual screeningon 12-22-2021 Thin prep Papanicolaou smear with manual screening 7 5-15 [facility] Work Phone: Vitamin D,25 Hydroxyon 10-31 Vitamin D,25 Hydroxy 20.5 ng/mL Abnormal 29.95-1 00. 01 [facility] Work Phone: Comment on above: Vitamin D 25(OH) Sta tus Range Deficiency <20 ng/mL (50nmol/L) Insufficiency 20 - 30 ng/mL (50 - 75 nmol/L) Sufficiency 30 - 100 ng/mL (75 - 250 nmol/L) Toxicity >100 ng/mL (>250 nmol/L) [facility] [address] [place], [address] PTHINon 09-08-2018 PTHIN 90.8 pg/mL Abnormal 18.4-80.1 [facility] Work Phone: Comment on above: [facility] [address] [place], [address] Vitamin D,25 Hydroxyon 09-08 Vitamin D,25 Hydroxy 21.8 ng/mL Abnormal 29.95-1 00. 01 [facility] Work Phone: Comment on above: Vitamin D 25(OH) Sta tus Range Deficiency <20 ng/mL (50nmol/L) Insufficiency 20 - 30 ng/mL (50 - 75 nmol/L) Sufficiency 30 - 100 ng/mL (75 - 250 nmol/L) Toxicity >100 ng/mL (>250 nmol/L) [place] [address] [place], [id number] PTHINon 07-01-2018 PTHIN 85.5 pg/mL Abnormal 18.4-80.1 [facility] Work Phone: Comment on above: [place] [address] [place], [phone] Vitamin D,25 Hydroxyon 07-01 Vitamin D,25 Hydroxy 34.9 ng/mL Normal 29.95-1 00. 01 [facility] Work Phone: Comment on above: Vitamin D 25(OH) Sta tus Range Deficiency <20 ng/mL (50nmol/L) Insuffciency 20 - 30 ng/mL (50 - 75 nmol/L) Sufficiency 30 - 100 ng/mL (75 - 250 nmol/L) Toxicity >100 ng/mL (>250 nmol/L) [place] [address] [place], [phone] PTHINon 04-12-2018 PTHIN 101.7 pg/mL Abnormal 18.4-80.1 [facility] Work Phone: PTHIN 101.7 pg/mL Abnormal 18.4-80.1 [facility] Work Phone: Comment on above: [place] [address] [place], [phone] Phosphoruson 04-12-2018 Phosphate mass conc 3.4 mg/dL Normal 2.5-4.9 [facility] Work Phone: Comment on above: [place] [address] [place], [address] Phosphorus 3.4 mg/dL Normal 2.5-4.9 [facility] Work Phone: Vitamin D,25 Hydroxyon 04-12 Vitamin D 25-OH 24.8 ng/mL Abnormal 29.95-100. 01 [facility] Work Phone: Comment on above: Vitamin D 25(OH) Sta tus Range Deficiency <20 ng/mL (50nmol/L) Insuffciency 20 - 30 ng/mL (50 - 75 nmol/L) Sufficiency 30 - 100 ng/mL (75 - 250 nmol/L) Toxicity >100 ng/mL (>250 nmol/L) Vitamin D,25 Hydroxy 24.8 ng/mL Abnormal 29.95-1 00. 01 [facility] Work Phone: Comment on above: Vitamin D 25(OH) Sta tus Range Deficiency <20 ng/mL (50nmol/L) Insuffciency 20 - 30 ng/mL (50 - 75 nmol/L) Sufficiency 30 - 100 ng/mL (75 - 250 nmol/L) Toxicity >100 ng/mL (>250 nmol/L) [facility] [id number] [place], [address] HPV, Reflex ([id number])on 2017 Microscopic observation Other stain Nom (Unsp spec) . Normal [facility] Work Phone: Comment on above: Source.............C ervix;EndocervixNo. of containers..01 ThinPrep VialPATIENT NOT FASTINGPERFORMED BY: [facility] [address] [id number] Information: [id number] Pathology report final diagnosis Narrative SPRCS Normal [facility] Work Phone: Comment on above: NEGATIVE FOR INTRAEP ITHELIAL LESION AND MALIGNANCY.Satisfactory for evaluation. Endocervical and/or squamous metaplasticcells (endocervical component) are present.[id number] Fidel Track Equipment Operator (ASCP) Source.............C ervix;EndocervixNo. of containers..01 ThinPrep VialPATIENT NOT FASTINGPERFORMED BY: [address] [id number] Information: [id number] HPV, Reflex ([id number]) PAPSMR Normal [facility]pr [facility] Work Phone: Comment on above: The Pap smear is a s creening test designed to aid in the detection ofpremalignant and malignant conditions of the uterine cervix. It is not adiagnostic procedure and should not be used as the sole means of detectingcervical cancer. Both false-positive and false-negative reports do occur. .The HPV DNA reflex criteria were not met with this specimen resulttherefore, no HPV testing was performed. . Source.............C ervix;EndocervixNo. of containers..01 ThinPrep VialPATIENT NOT FASTINGPERFORMED BY: [address] [id number] Information: [id number] PTHINon 01-24-2018 PTHIN 93.6 pg/mL Abnormal 18.4-80.1 [facility] Work Phone: PTHIN 93.6 pg/mL Abnormal 18.4-80.1 [facility] Work Phone: Comment on above: [facility] [id number] [place], [address] Vitamin D,25 Hydroxyon 01-24 Vitamin D 25-OH 30.0 ng/mL Normal 29.95-100. 01 [facility] Work Phone: Comment on above: Vitamin D 25(OH) Sta tus Range Deficiency <20 ng/mL (50nmol/L) Insuffciency 20 - 30 ng/mL (50 - 75 nmol/L) Sufficiency 30 - 100 ng/mL (75 - 250 nmol/L) Toxicity >100 ng/mL (>250 nmol/L) Vitamin D,25 Hydroxy 30.0 ng/mL Normal 29.95-1 00. 01 [facility] Work Phone: Comment on above: Vitamin D 25(OH) Sta tus Range Deficiency <20 ng/mL (50nmol/L) Insuffciency 20 - 30 ng/mL (50 - 75 nmol/L) Sufficiency 30 - 100 ng/mL (75 - 250 nmol/L) Toxicity >100 ng/mL (>250 nmol/L) [facility] [address] [place], [phone] CBC, Employeeon 01-13-2018 Absolute Lymph 1.47 {X10_3/ul} Normal 0.83-4.51 [facility] Work Phone: Absolute Neut 3.5 {X10_3/uL} Normal 2.0-7.7 [facility] Work Phone: Basophils/100 WBC (Bld) 0.4 % Normal 0-1 [facility] Work Phone: Comment on above: [facility] [address] [place], [phone] Basophils/100 WBC Auto (Bld) 0.4 % Normal 0-1 [facility] Work Phone: Eosinophils/100 WBC (Bld) 2.8 % Normal 0-5 [facility] Work Phone: Comment on above: [facility] [address] [place], [phone] Eosinophils/100 WBC Auto (Bld) 2.8 % Normal 0-5 [facility] Work Phone: Erythrocyte distribution width (RBC) [Ratio] 12.6 % Normal 11.6-14.6 [facility] Work Phone: Comment on above: [facility] [id number] [place], [phone] Erythrocyte distribution width Auto Ratio (RBC) 12.6 % Normal 11.6-14.6 [facility] Work Phone: Hematocrit (Bld) [Volume fraction] 38.8 % Normal 37-47 [facility] Work Phone: Comment on above: [facility] [address] [place], [phone] Hematocrit Auto Volume Fraction (Bld) 38.8 % Normal 37-47 [facility] Work Phone: Hemoglobin mass conc (Bld) 13.0 g/dL Normal 12.0-15.0 [facility] Work Phone: Comment on above: [facility] [address] [place], [address] Lymphocytes/100 WBC (Bld) 27.4 % Normal 19-41 [facility] Work Phone: Comment on above: [facility] [address] [place], [address] Lymphocytes/100 WBC Auto (Bld) 27.4 % Normal 19-41 [facility] [facility] Work Phone: MCH (RBC) [Entitic mass] 30.3 pg Normal 27.0-32.0 [facility] Internal Medicine Work Phone: Comment on above: [facility] [address] [place], [phone] MCH Auto Entitic mass (RBC) 30.3 pg Normal 27.0-32.0 [facility] Internal Medicine Work Phone: MCHC (RBC) [Mass/Vol] 33.5 {g/gl} Normal 32-36 [facility] Internal Medicine Work Phone: Comment on above: [facility] [address] [place], [phone] MCHC Auto mass conc (RBC) 33.5 {g/gl} Normal 32-36 [facility] Internal Medicine Work Phone: MCV (RBC) [Entitic vol] 90.4 fL Normal 81-99 [facility] Work Phone: Comment on above: [facility] [address] [place], [address] MCV Auto Entitic volume (RBC) 90.4 fL Normal 81-99 [facility] Work Phone: Monocytes/100 WBC Auto (Bld) 4.1 % Normal 0-10 [facility] Work Phone: Comment on above: [facility] [address] [place], [address] Monocytes/100 WBC Auto (Bld) 4.1 % Normal 0-10 [facility] Work Phone: Neutrophils/100 WBC (Bld) 65.3 % Normal 47-70 [facility] Work Phone: Comment on above: [place] [address] [place], [address] Neutrophils/100 WBC Auto (Bld) 65.3 % Normal 47-70 [facility] Work Phone: Platelet mean volume (Bld) [Entitic vol] 10.4 fL Normal 6.2-12.0 Comprehensiv e Internal Medicine Work Phone: Comment on above: [place] [address] [place], [address] Platelet mean volume Auto Entitic volume (Bld) 10.4 fL Normal 6.2-12.0 [facility] Work Phone: Platelets (Bld) [#/Vol] 309 10*3/uL Normal 150-450 [facility] Work Phone: Comment on above: [facility] [address] [place], [address] Platelets Auto #/vol (Bld) 309 10*3/uL Normal 150-450 [facility] Work Phone: RBC (Bld) [#/Vol] 4.29 {M/mm3} Normal 4.2-5.4 [facility] Work Phone: Comment on above: [facility] [address] [place], [place], [phone] RBC Auto #/vol (Bld) 4.29 {M/mm3} Normal 4.2-5.4 Co mprehensive Internal Medicine Work Phone: RDW SD 41.4 fL Normal 35.1-43.9 [facility] Work Phone: WBC (Bld) [#/Vol] 5.4 10*3/uL Normal 4.4-11.0 Compre hensive Internal Medicine Work Phone: Comment on above: [facility] [address] [place], [address] WBC Auto #/vol (Bld) 5.4 10*3/uL Normal 4.4-11.0 [facility] Work Phone: CBC, Employee 1.47 {X10_3/ul} Normal 0.83-4.51 Compre [facility] Internal Medicine Work Phone: Comment on above: [facility] [place], [place], [phone] CBC, Employee 3.5 {X10_3/uL} Normal 2.0-7.7 Compreh ensive Internal Medicine Work Phone: Comment on above: [place] [address] [place], [address] CBC, Employee 41.4 fL Normal 35.1-43.9 Comprehensi ve Internal Medicine Work Phone: Comment on above: [facility] [address] [place], [place], [phone] Employee Profileon 8 A/G 1.0 {RATIO} Normal 0.9-2.4 [facility] Work Phone: Albumin mass conc 3.5 g/dL Normal 3.2-5.0 Compreh ensive Internal Medicine Work Phone: Comment on above: [facility] [address] [place], [place], [phone] Albumin/Globulin mass ratio 1.0 {RATIO} Normal 0.9-2.4 [facility] Work Phone: Comment on above: [facility] [address] [place], [place], [phone] ALP enzyme act/vol 64 U/L Normal 45-117 Compre hensive Internal Medicine Work Phone: ALT enzyme act/vol 31 U/L Normal 13-56 Compre hensive Internal Medicine Work Phone: Comment on above: [facility] [address] [place], [place], [phone] AST enzyme act/vol 22 U/L Normal 15-37 Compre [facility] Work Phone: Comment on above: [facility] [address] [place], [place], [address] Bilirubin mass conc 1.10 mg/dL Abnormal 0.20-1.00 Compr ehensive Internal Medicine Work Phone: Comment on above: [facility] [address] [place], [place], [address] Bilirubin.direct mass conc 0.18 mg/dL Normal 0.00-0.30 [facility] Work Phone: Comment on above: [facility] [address] [place], [place], [address] BUN/CRE 24.7 {RATIO} Abnormal 10-20 Comprehensiv e Internal Medicine Work Phone: Calcium mass conc 8.9 mg/dL Normal 8.5-10.1 Compreh ensive Internal Medicine Work Phone: Comment on above: [facility] [address] [place], [address] Chloride molar conc 111 mmol/L Abnormal 98-107 Compr ehensive Internal Medicine Work Phone: Comment on above: [facility] [address] [place], [place], [address] CHOL:HDL 2.80 1 Normal [facility] Work Phone: Cholesterol in HDL mass conc 60 mg/dL Normal [facility] Work Phone: Comment on above: The drugs N-Acetylcy steine and Metamizole may falselydepress this assay. Reference Range HDL <40 mg/dL Low HDL Cholesterol HDL >or= 60 mg/dL High HDL Cholesterol [facility] [address] [place], [place], [phone] Cholesterol in LDL mass conc 92 mg/dL Normal 0-130 [facility] Work Phone: Cholesterol in LDL mass conc 92 mg/dL Normal 0-130 [facility] Work Phone: Comment on above: [facility] [address] [place], [place], [phone] Cholesterol in VLDL mass conc 17 mg/dL Normal 5-40 [facility] Work Phone: Cholesterol mass conc 169 mg/dL Normal Com prehensive Internal Medicine Work Phone: Comment on above: <200 mg/dL Desirable 200-240 mg/dL Borderline >240 mg/dL High Risk [facility] [address] [place], [address] CO2 molar conc 25.0 mmol/L Normal 21.0-32.0 [facility] Internal Medicine Work Phone: Comment on above: [facility] [address] [place], [address] Creatinine mass conc 0.69 mg/dL Normal 0.55-1.02 Comp [facility] Work Phone: Comment on above: The validity of the calculated GFR AND GFRAA in patients over70 years has not been determined. Clinical correlation isessential. [facility] [address] [place], [place], [address] EST GFR - AA 113 mL/min Normal Comprehensiv e Internal Medicine Work Phone: Comment on above: GFR Calc GAP 6 1 Normal 5-15 [facility] Work Phone: GFR/1.73 sq M predicted among non-blacks MDRD vol rate/area (S/P/Bld) 94 mL/min/{1.73_m2} Normal Comprehe nsive Internal Medicine Work Phone: Comment on above: Non- GFR Calc [facility] [address] [place], [place], [address] Globulin Calculated mass conc (S) 3.6 g/dL Normal 2.2-4.2 [facility] Work Phone: Glucose mass conc 95 mg/dL Normal 74-106 Compreh ensive Internal Medicine Work Phone: Comment on above: Please note revised GLUCOSE reference range lvpfiftbe04/02/2018. [facility] [address] [place], [place], [address] LDH 184 U/L Normal 84-246 [facility] Work Phone: Phosphate mass conc 2.4 mg/dL Abnormal 2.5-4.9 Compr ehensive Internal Medicine Work Phone: Potassium molar conc 3.8 mmol/L Normal 3.5-5.1 Comp rehensive Internal Medicine Work Phone: Comment on above: [facility] [address] [place], [place], [address] Protein mass conc 7.1 g/dL Normal 6.4-8.2 Compreh ensive Internal Medicine Work Phone: Comment on above: [facility] [address] [place], [place], [phone] Sodium molar conc 142 mmol/L Normal 136-145 Compreh ensive Internal Medicine Work Phone: Comment on above: [facility] [address] [place], [place], [phone] Triglyceride mass conc 85 mg/dL Normal [facility] Work Phone: Comment on above: The drugs N-Acetylcy steine and Metamizole may falselydepress this assay.Serum Triglycerides Reference Interval Normal <150 mg/dL Borderline high 150 - 199 mg/dL High 200 - 499 mg/dL Very High > or = 500 mg/dL [facility] [address] [place], [place], [phone] Urea nitrogen mass conc 17 mg/dL Normal 7-18 [facility] Work Phone: Comment on above: [place] [address] [facility] [phone] URIC 4.5 mg/dL Normal 2.6-6.0 [facility] Work Phone: Comment on above: The drugs N-Acetylcy steine and Metamizole may falselydepress this assay. Employee Profile 113 mL/min Normal Comprehe nsive Internal Medicine Work Phone: Comment on above: GFR Calc [place] [address] [place], [place], [phone] Employee Profile 24.7 {RATIO} Abnormal 10-20 Compre hensive Internal Medicine Work Phone: Comment on above: [place] [address] [place], [place], [phone] Employee Profile 184 U/L Normal 84-246 Comprehe nsive Internal Medicine Work Phone: Comment on above: [place] [address] [place], [place], [phone] Employee Profile 17 mg/dL Normal 5-40 Comprehe nsive Internal Medicine Work Phone: Comment on above: [place] [address] [place], [address] Employee Profile 4.5 mg/dL Normal 2.6-6.0 Comprehe nsive Internal Medicine Work Phone: Comment on above: The drugs N-Acetylcy steine and Metamizole may falselydepress this assay. [facility] [address] [place], [place], [address] Employee Profile 3.6 g/dL Normal 2.2-4.2 Comprehe nsive Internal Medicine Work Phone: Comment on above: [facility] [address] [place], [place], [address] Employee Profile 2.80 1 Normal Comprehe nsive Internal Medicine Work Phone: Comment on above: [facility] [address] [place], [place], [address] Employee Profile 6 1 Normal 5-15 Comprehe nsive Internal Medicine Work Phone: Comment on above: [facility] [address] [place], [address] Employee Profile 64 U/L Normal 45-117 Comprehe nsive Internal Medicine Work Phone: Comment on above: [facility] [address] [place], [address] Employee Profile 2.4 mg/dL Abnormal 2.5-4.9 Comprehe nsive Internal Medicine Work Phone: Comment on above: [facility] [address] [place], [address] Employee Profile 7.1 g/dL Normal 6.4-8.2 Comprehe nsive Internal Medicine Work Phone: Comment on above: [facility] [address] [place], [address] Nicotine Urine Drug Screenon 01-13-2018 COT DRG SCREEN Negative Normal Comprehens john paul Internal Medicine Work Phone: Comment on above: Cotinine is the firs t-stage metabolite of Nicotine. TO BE CONFIRMED Normal Comprehen sive Internal Medicine Work Phone: Comment on above: CONFIRMATORY TESTING FOR ALL POSITIVE URINE DRUG [...] result, particularly whenpreliminary positive results are used. Nicotine Urine Drug Screen Normal [facility] Work Phone: Comment on above: CONFIRMATORY TESTING FOR ALL POSITIVE URINE DRUG [...] result, particularly whenpreliminary positive results are used. [facility] [address] [place], [place], [phone] Urinalysis, Employeeon 01-13 CLARITY Clear Normal [facility] Work Phone: Clarity (U) Clear Normal [facility] Work Phone: Comment on above: [facility] [address] [place], [place], [address] COLOR Yellow Normal [facility] Work Phone: Color (U) Yellow Normal [facility] Work Phone: Comment on above: [facility] [address] [place], [place], [phone] GLUCOSE, UR Normal Normal [facility] Work Phone: KETONE UR Negative Normal [facility] Work Phone: OCCULT BLOOD-UR 25 /ul Abnormal Comprehen [facility] Internal Medicine Work Phone: pH UR 6.0 1 Normal 5.0 - 8.0 [facility] Work Phone: SP.GR. DIPSTX 1.015 1 Normal 1.002-1.03 0 [facility] Internal Medicine Work Phone: Urinalysis, Employee 6.0 1 Normal 5.0 - 8.0 [facility] Work Phone: Comment on above: [facility] [address] [place], [address] Urinalysis, Employee Negative Normal Comp [facility] Internal [facility] Work Phone: Comment on above: Cotinine is the firs t-stage metabolite of Nicotine. [facility] [address] [place], [address] Urinalysis, Employee Normal Normal Comp [facility] Internal [facility] Work Phone: Comment on above: [facility] [address] [place], [address] Urinalysis, Employee 25 /ul Abnormal Comp [facility] Internal [facility] Work Phone: Comment on above: [facility] [address] [place], [address] Urinalysis, Employee Yellow Normal [facility] Work Phone: Urinalysis, Employee 1.015 1 Normal 1.002-1 .03 0 [facility] Internal Medicine Work Phone: Comment on above: [facility] [address] [place], [place], [address] Urinalysis, Employee Clear Normal Comp [facility] Internal Medicine Work Phone: CBC, Employeeon 03-01-2017 Absolute Lymph 1.73 {X10_3/ul} Normal 0.83-4.51 [facility] ehensive Internal Medicine Work Phone: Absolute Neut 4.3 {X10_3/uL} Normal 2.0-7.7 Compreh ensive Internal Medicine Work Phone: Basophils/100 WBC (Bld) 0.6 % Normal 0-1 [facility] Work Phone: Comment on above: [facility] [address] [place], [address] Basophils/100 WBC Auto (Bld) 0.6 % Normal 0-1 [facility] Work Phone: Eosinophils/100 WBC (Bld) 2.2 % Normal 0-5 [facility] Work Phone: Comment on above: [facility] [address] [place], [address] Eosinophils/100 WBC Auto (Bld) 2.2 % Normal 0-5 [facility] Work Phone: Erythrocyte distribution width (RBC) [Ratio] 12.6 % Normal 11.6-14.6 [facility] Work Phone: Comment on above: [facility] [address] [place], [address] Erythrocyte distribution width Auto Ratio (RBC) 12.6 % Normal 11.6-14.6 [facility] Work Phone: Hematocrit (Bld) [Volume fraction] 39.0 % Normal 37-47 [facility] Work Phone: Comment on above: [facility] [address] [place], [address] Hematocrit Auto Volume Fraction (Bld) 39.0 % Normal 37-47 Comprehens john paul Internal Medicine Work Phone: Hemoglobin mass conc (Bld) 13.1 g/dL Normal 12.0-15.0 [facility] Work Phone: Comment on above: [facility] [address] [place], [address] Lymphocytes/100 WBC (Bld) 25.5 % Normal 19-41 [facility] Work Phone: Comment on above: [facility] [address] [place], [address] Lymphocytes/100 WBC Auto (Bld) 25.5 % Normal 19-41 [facility] Work Phone: MCH (RBC) [Entitic mass] 30.5 pg Normal 27.0-32.0 [facility] Work Phone: Comment on above: [facility] [place], [address] MCH Auto Entitic mass (RBC) 30.5 pg Normal 27.0-32.0 [facility] Work Phone: MCHC (RBC) [Mass/Vol] 33.6 {g/gl} Normal 32-36 [facility] Internal Medicine Work Phone: Comment on above: [facility] [address] [place], [address] MCHC Auto mass conc (RBC) 33.6 {g/gl} Normal 32-36 [facility] Work Phone: MCV (RBC) [Entitic vol] 90.7 fL Normal 81-99 [facility] Work Phone: Comment on above: [place] [address] [place], [address] MCV Auto Entitic volume (RBC) 90.7 fL Normal 81-99 [facility] Work Phone: Monocytes/100 WBC Auto (Bld) 7.8 % Normal 0-10 [facility] Work Phone: Comment on above: [facility] [address] [place], [address] Monocytes/100 WBC Auto (Bld) 7.8 % Normal 0-10 [facility] Work Phone: Neutrophils/100 WBC (Bld) 63.8 % Normal 47-70 [facility] Work Phone: Comment on above: [facility] [address] [place], [address] Neutrophils/100 WBC Auto (Bld) 63.8 % Normal 47-70 [facility] Work Phone: Platelet mean volume (Bld) [Entitic vol] 10.1 fL Normal 6.2-12.0 Comprehensiv e Internal Medicine Work Phone: Comment on above: [facility] [address] [place], [address] Platelet mean volume Auto Entitic volume (Bld) 10.1 fL Normal 6.2-12.0 [facility] Work Phone: Platelets (Bld) [#/Vol] 334 10*3/uL Normal 150-450 [facility] Work Phone: Comment on above: [facility] [address] [place], [address] Platelets Auto #/vol (Bld) 334 10*3/uL Normal 150-450 [facility] Work Phone: RBC (Bld) [#/Vol] 4.30 {M/mm3} Normal 4.2-5.4 [facility] Internal Medicine Work Phone: Comment on above: [facility] [address] [place], [address] RBC Auto #/vol (Bld) 4.30 {M/mm3} Normal 4.2-5.4 [facility] Internal Medicine Work Phone: RDW SD 41.4 fL Normal 35.1-43.9 [facility] Work Phone: WBC (Bld) [#/Vol] 6.8 10*3/uL Normal 4.4-11.0 [facility] Internal Medicine Work Phone: Comment on above: [facility] [address] [place], [address] WBC Auto #/vol (Bld) 6.8 10*3/uL Normal 4.4-11.0 Com prehensive Internal Medicine Work Phone: CBC, Employee 41.4 fL Normal 35.1-43.9 Comprehensi ve Internal Medicine Work Phone: Comment on above: [facility] [address] [place], [place], [address] CBC, Employee 1.73 {X10_3/ul} Normal 0.83-4.51 Compre hensive Internal Medicine Work Phone: Comment on above: [facility] [address] [place], [place], [phone] CBC, Employee 4.3 {X10_3/uL} Normal 2.0-7.7 Compreh ensive Internal Medicine Work Phone: Comment on above: [facility] [address] [place], [place], [address] Employee Profileon 7 A/G 0.9 {RATIO} Normal 0.9-2.4 [facility] Work Phone: Albumin mass conc 3.4 g/dL Normal 3.4-5.0 Compreh ensive Internal Medicine Work Phone: Comment on above: [facility] [address] [place], [address] Albumin/Globulin mass ratio 0.9 {RATIO} Normal 0.9-2.4 [facility] Work Phone: Comment on above: [facility] [address] [place], [place], [phone] ALP enzyme act/vol 69 U/L Normal 45-117 Compre hensive Internal Medicine Work Phone: ALT enzyme act/vol 31 U/L Normal 12-78 Compre hensive Internal Medicine Work Phone: Comment on above: [facility] [address] [place], [place], [phone] AST enzyme act/vol 18 U/L Normal 15-37 Compre [facility] Internal Medicine Work Phone: Comment on above: [facility] [address] [place], [place], [address] Bilirubin mass conc 1.00 mg/dL Normal 0.20-1.00 Compr ensive Internal Medicine Work Phone: Comment on above: [facility] [address] [place], [place], [address] Bilirubin.direct mass conc 0.20 mg/dL Normal 0.00-0.30 [facility] Work Phone: Comment on above: [place] [address] [place], [place], [phone] BUN/CRE 28.3 {RATIO} Abnormal 10-20 Comprehensiv e Internal Medicine Work Phone: Calcium mass conc 8.9 mg/dL Normal 8.5-10.1 Compreh ensive Internal Medicine Work Phone: Comment on above: [place] [address] [place], [place], [phone] Chloride molar conc 111 mmol/L Abnormal 98-107 Compr ensive Internal Medicine Work Phone: Comment on above: [place] [address] [place], [place], [phone] CHOL:HDL 2.80 1 Normal [facility] Work Phone: Cholesterol in HDL mass conc 70 mg/dL Normal [facility] Work Phone: Comment on above: The drugs N-Acetylcy steine and Metamizole may falsely deressthis assay. Reference Range HDL <40 mg/dL Low HDL Cholesterol HDL >or= 60 mg/dL High HDL Cholesterol [facility] [address] [place], [place], [phone] Cholesterol in LDL mass conc 100 mg/dL Normal 0-130 [facility] Work Phone: Cholesterol in LDL mass conc 100 mg/dL Normal 0-130 [facility] Work Phone: Comment on above: [facility] [address] [place], [place], [phone] Cholesterol in VLDL mass conc 23 mg/dL Normal 5-40 [facility] Work Phone: Cholesterol mass conc 193 mg/dL Normal Com prehensive Internal Medicine Work Phone: Comment on above: <200 mg/dL Desirable 200-240 mg/dL Borderline >240 mg/dL High Risk [facility] [address] [place], [place], [phone] CO2 molar conc 25.0 mmol/L Normal 21.0-32.0 Comprehen [facility] Internal Medicine Work Phone: Comment on above: [facility] [address] [place], [place], [phone] Creatinine mass conc 0.67 mg/dL Normal 0.55-1.02 Comp rehensive Internal Medicine Work Phone: Comment on above: The validity of the calculated GFR AND GFRAA in patients over70 years has not been determined. Clinical correlation isessential. [facility] [address] [place], [place], [address] EST GFR - AA 117 mL/min Normal Comprehensiv e Internal Medicine Work Phone: Comment on above: GFR Calc GAP 6 1 Normal 5-15 [facility] Work Phone: GFR/1.73 sq M predicted among non-blacks MDRD vol rate/area (S/P/Bld) 97 mL/min/{1.73_m2} Normal Comprehe nsive Internal Medicine Work Phone: Comment on above: Non- GFR Calc [facility] [address] [place], [place], [phone] Globulin Calculated mass conc (S) 3.6 g/dL Abnormal 2.3-3.5 [facility] Work Phone: Globulin mass conc (S) 3.6 g/dL Abnormal 2.3-3.5 [facility] Work Phone: Comment on above: [facility] [address] [place], [place], [phone] Glucose mass conc 102 mg/dL Normal 70-110 Compreh ensive Internal Medicine Work Phone: Comment on above: [facility] [address] [place], [place], [phone] LDH 170 U/L Normal 84-246 [facility] Work Phone: Phosphate mass conc 2.8 mg/dL Normal 2.5-4.9 Compr ensive Internal Medicine Work Phone: Potassium molar conc 3.8 mmol/L Normal 3.5-5.1 Comp rehensive Internal Medicine Work Phone: Comment on above: [facility] [address] [place], [place], [phone] Protein mass conc 7.0 g/dL Normal 6.4-8.2 Compreh ensive Internal Medicine Work Phone: Comment on above: [place] [address] [place], [place], [phone] Sodium molar conc 142 mmol/L Normal 136-145 Compreh ensive Internal Medicine Work Phone: Comment on above: [facility] [address] [place], [place], [phone] Triglyceride mass conc 117 mg/dL Normal [facility] Work Phone: Comment on above: The drugs N-Acetylcy steine and Metamizole may falsely deressthis assay.Serum Triglycerides Reference Interval Normal <150 mg/dL Borderline high 150 - 199 mg/dL High 200 - 499 mg/dL Very High > or = 500 mg/dL [facility] [address] [place], [place], [phone] Urea nitrogen mass conc 19 mg/dL Abnormal 7-18 [facility] Work Phone: Comment on above: [facility] [address] [place], [place], [address] URIC 4.3 mg/dL Normal 2.6-6.0 [facility] Work Phone: Comment on above: The drugs N-Acetylcy steine and Metamizole may falsely deressthis assay. Employee Profile 2.8 mg/dL Normal 2.5-4.9 Comprehe nsive Internal Medicine Work Phone: Comment on above: [facility] [address] [place], [place], [address] Employee Profile 170 U/L Normal 84-246 Comprehe nsive Internal Medicine Work Phone: Comment on above: [facility] [address] [place], [place], [address] Employee Profile 69 U/L Normal 45-117 Comprehe nsive Internal Medicine Work Phone: Comment on above: [facility] [address] [place], [place], [address] Employee Profile 23 mg/dL Normal 5-40 Comprehe nsive Internal Medicine Work Phone: Comment on above: [place] [address] [place], [place], [address] Employee Profile 117 mL/min Normal Comprehe nsive Internal Medicine Work Phone: Comment on above: GFR Calc [facility] [address] [place], [place], [phone] Employee Profile 28.3 {RATIO} Abnormal 10-20 Compre hensive Internal Medicine Work Phone: Comment on above: [facility] [address] [place], [place], [address] Employee Profile 4.3 mg/dL Normal 2.6-6.0 Comprehe nsive Internal Medicine Work Phone: Comment on above: The drugs N-Acetylcy steine and Metamizole may falsely deressthis assay. [facility] [address] [place], [place], [address] Employee Profile 2.80 1 Normal Comprehe nsive Internal Medicine Work Phone: Comment on above: [facility] [address] [place], [place], [address] Employee Profile 6 1 Normal 5-15 Comprehe nsive Internal Medicine Work Phone: Comment on above: [facility] [address] [place], [place], [address] Employee Profile 3.6 g/dL Abnormal 2.3-3.5 Comprehe nsive Internal Medicine Work Phone: Comment on above: [facility] [place], [place], [address] Employee Profile 7.0 g/dL Normal 6.4-8.2 Comprehe nsive Internal Medicine Work Phone: Comment on above: [facility] [address] [place], [place], [address] Nicotine Urine Drug Screenon 03-01-2017 COT DRG SCREEN Negative Normal Comprehens john paul Internal Medicine Work Phone: Comment on above: Cotinine is the firs t-stage metabolite of Nicotine. TO BE CONFIRMED Normal Comprehen sive Internal Medicine Work Phone: Comment on above: CONFIRMATORY TESTING FOR ALL POSITIVE URINE DRUG [...] result, particularly whenpreliminary positive results are used. Nicotine Urine Drug Screen Normal [facility] Work Phone: Comment on above: CONFIRMATORY TESTING FOR ALL POSITIVE URINE DRUG [...] result, particularly whenpreliminary positive results are used. [facility] [address] [place], [place], [phone] URINE FREYA CULTURE-CHRISTEN COL C OUNT ([id number])on 03-01-2017 Bacteria identified Cx Nom (U) MUG Normal [facility] Work Phone: Comment on above: Mixed urogenital moe ra10,000-25,000 colony forming units per mL PATIENT NOT FASTINGP ERFORMED BY: [facility] [id number] [facility] [id number] Information: SRC:UC Bacteria identified Cx Nom (U) Final report Normal [facility] Work Phone: Comment on above: PATIENT NOT FASTINGP ERFORMED BY: [employer] [id number] [facility] [id number] Information: SRC:UC Urinalysis, Employeeon 03-01 BILIRUBIN URINE Negative Normal Comprehen sive Internal Medicine Work Phone: CLARITY Clear Normal [facility] Work Phone: Clarity (U) Clear Normal [facility] Work Phone: Comment on above: [facility] [address] [place], [place], [address] COLOR Yellow Normal [facility] Work Phone: Color (U) Yellow Normal [facility] Work Phone: Comment on above: [facility] [address] [place], [place], [address] GLUCOSE, UR Normal Normal [facility] Work Phone: LEUK ESTERASE 25 /ul Abnormal Comprehensi ve Internal Medicine Work Phone: OCCULT BLOOD-UR 10 /ul Abnormal Comprehen sive Internal Medicine Work Phone: pH UR 5.0 1 Normal 5.0 - 8.0 [facility] Work Phone: SP.GR. DIPSTX 1.020 1 Normal 1.002-1.03 0 [facility] Work Phone: Urinalysis, Employee 5.0 1 Normal 5.0 - 8.0 Comp rehensive Internal Medicine Work Phone: Comment on above: [facility] [address] [place], [place], [address] Urinalysis, Employee Yellow Normal Comp rehensive Internal Medicine Work Phone: Urinalysis, Employee Clear Normal Comp rehensive Internal Medicine Work Phone: Urinalysis, Employee Normal Normal Comp rehensive Internal Medicine Work Phone: Comment on above: [facility] [address] [place], [address] Urinalysis, Employee Negative Normal Comp rehensive Internal Medicine Work Phone: Comment on above: Cotinine is the firs t-stage metabolite of Nicotine. [facility] [address] [place], [address] Urinalysis, Employee 1.020 1 Normal 1.002-1 .03 0 [facility] Internal Medicine Work Phone: Comment on above: [facility] [address] [place], [address] Urinalysis, Employee 10 /ul Abnormal Comp rehensive Internal Medicine Work Phone: Comment on above: [facility] [address] [place], [address] Urinalysis, Employee 25 /ul Abnormal Comp rehensive Internal Medicine Work Phone: Comment on above: [facility] [address] [place], [address] Urinalysis, Office ([phone])Or dered By: Kati Pizarro on 03-01-2017 Bilirubin Ql (U) Negative Normal Comprehe nsive Internal Medicine Work Phone: Glucose Test strip mass conc (U) Negative Normal [facility] Work Phone: Hemoglobin Ql (U) Hemolyzed Trace Normal Co mprehensive Internal Medicine Work Phone: Hemoglobin Test strip Ql (U) Hemolyzed Trace Normal [facility] Work Phone: Ketones Ql (U) Negative Normal Comprehens ojhn paul Internal Medicine Work Phone: Leukocyte esterase Test strip Ql (U) Negative Normal [facility] Work Phone: Nitrite Ql (U) Negative Normal Comprehens john paul Internal Medicine Work Phone: Nitrite Test strip Ql (U) Negative Normal [facility] Work Phone: pH (U) 6 [pH] Abnormal [facility] Work Phone: pH Test strip (U) 6 [pH] Abnormal Compreh ensive Internal Medicine Work Phone: Protein Ql (U) Negative Normal Comprehens john paul Internal Medicine Work Phone: Protein Test strip Ql (U) Negative Normal [facility] Work Phone: Specific gravity Relative Density (U) 1.005 1 Normal Comprehensi ve Internal Medicine Work Phone: Urobilinogen mass/time (24H U) Normal Normal [facility] Work Phone: Urinalysis, Office ([phone])on 03-01-2017 Bilirubin Ql (U) Negative Normal Comprehe nsive Internal Medicine; [facility] Work Phone: Glucose Test strip (U) [Mass/Vol] Negative Normal [facility]; [facility] Work Phone: Ketones Ql (U) Negative Normal Comprehens john paul Internal Medicine; [facility] Work Phone: Leukocyte esterase Test strip Ql (U) Negative Normal [facility]; [facility] Work Phone: Nitrite Ql (U) Negative Normal Comprehens john paul Internal Medicine; [facility] Work Phone: Protein Ql (U) Negative Normal Comprehens john paul Internal Medicine; [facility] Work Phone: CBC, Employeeon 02-19-2016 Absolute Lymph 1.85 {X10_3/ul} Normal 0.83-4.51 Compr ehensive Internal Medicine Work Phone: Absolute Neut 5.0 {X10_3/uL} Normal 2.0-7.7 Compreh ensive Internal Medicine Work Phone: Basophils/100 WBC (Bld) 0.5 % Normal 0-1 [facility] Work Phone: Comment on above: [facility] [address] [place], [address]([phone] Basophils/100 WBC Auto (Bld) 0.5 % Normal 0-1 [facility] Work Phone: Eosinophils/100 WBC (Bld) 2.6 % Normal 0-5 [facility] Work Phone: Comment on above: [facility] [address] [place], [address] Eosinophils/100 WBC Auto (Bld) 2.6 % Normal 0-5 [facility] Work Phone: Erythrocyte distribution width (RBC) [Ratio] 12.6 % Normal 11.6-14.6 [facility] Work Phone: Comment on above: [facility] [address] [place], [phone] Erythrocyte distribution width Auto Ratio (RBC) 12.6 % Normal 11.6-14.6 [facility] Work Phone: Hematocrit (Bld) [Volume fraction] 41.9 % Normal 37-47 [facility] Work Phone: Comment on above: [facility] [address] [place], [address] Hematocrit Auto Volume Fraction (Bld) 41.9 % Normal 37-47 Comprehens [facility] Internal Medicine Work Phone: Hemoglobin mass conc (Bld) 14.2 g/dL Normal 12.0-15.0 [facility] Work Phone: Comment on above: [facility] [address] [place], [address] Lymphocytes/100 WBC (Bld) 23.8 % Normal 19-41 [facility] Work Phone: Comment on above: [facility] [address] [place], [address] Lymphocytes/100 WBC Auto (Bld) 23.8 % Normal 19-41 [facility] Work Phone: MCH (RBC) [Entitic mass] 30.6 pg Normal 27.0-32.0 [facility] Work Phone: Comment on above: [facility] [address] [place], [address] MCH Auto Entitic mass (RBC) 30.6 pg Normal 27.0-32.0 [facility] Work Phone: MCHC (RBC) [Mass/Vol] 33.9 {g/gl} Normal 32-36 [facility] Internal Medicine Work Phone: Comment on above: [facility] [address] [place], [address] MCHC Auto mass conc (RBC) 33.9 {g/gl} Normal 32-36 [facility] Work Phone: MCV (RBC) [Entitic vol] 90.3 fL Normal 81-99 [facility] Work Phone: Comment on above: [facility] [address] [place], [address] MCV Auto Entitic volume (RBC) 90.3 fL Normal 81-99 [facility] Work Phone: Monocytes/100 WBC Auto (Bld) 8.9 % Normal 0-10 [facility] Work Phone: Comment on above: [facility] [address] [place], [address] Monocytes/100 WBC Auto (Bld) 8.9 % Normal 0-10 [facility] Work Phone: Neutrophils/100 WBC (Bld) 64.1 % Normal 47-70 [facility] Work Phone: Comment on above: [facility] [address] [place], [address] Neutrophils/100 WBC Auto (Bld) 64.1 % Normal 47-70 [facility] Work Phone: Platelet mean volume (Bld) [Entitic vol] 10.3 fL Normal 6.2-12.0 Comprehensiv e Internal Medicine Work Phone: Comment on above: [facility] [address] [place], [address] Platelet mean volume Auto Entitic volume (Bld) 10.3 fL Normal 6.2-12.0 [facility] Work Phone: Platelets (Bld) [#/Vol] 315 10*3/uL Normal 150-450 [facility] Work Phone: Comment on above: [facility] [address] [place], [address] Platelets Auto #/vol (Bld) 315 10*3/uL Normal 150-450 [facility] Work Phone: RBC (Bld) [#/Vol] 4.64 {M/mm3} Normal 4.2-5.4 [facility]pr [facility] Work Phone: Comment on above: [facility] [address] [place], [place], [phone] RBC Auto #/vol (Bld) 4.64 {M/mm3} Normal 4.2-5.4 [facility] Work Phone: RDW SD 41.2 fL Normal 35.1-43.9 [facility] Work Phone: WBC (Bld) [#/Vol] 7.8 10*3/uL Normal 4.4-11.0 Compre hensive Internal Medicine Work Phone: Comment on above: [facility] [address] [place], [address] WBC Auto #/vol (Bld) 7.8 10*3/uL Normal 4.4-11.0 [facility] prehensive Internal Medicine Work Phone: CBC, Employee 1.85 {X10_3/ul} Normal 0.83-4.51 [facility]pre [facility] Internal [facility] Work Phone: Comment on above: [facility] [address] [place], [place], [phone] CBC, Employee 5.0 {X10_3/uL} Normal 2.0-7.7 Compreh ensive Internal Medicine Work Phone: Comment on above: [facility] [address] [place], [address] CBC, Employee 41.2 fL Normal 35.1-43.9 Comprehensi ve Internal Medicine Work Phone: Comment on above: [facility] [address] [place], [place], [phone] Employee Profileon 6 A/G 1.0 {RATIO} Normal 0.9-2.4 [facility] Work Phone: Albumin mass conc 3.6 g/dL Normal 3.4-5.0 Compreh ensive Internal Medicine Work Phone: Comment on above: [facility] [address] [place], [place], [phone] Albumin/Globulin mass ratio 1.0 {RATIO} Normal 0.9-2.4 [facility] Work Phone: Comment on above: [facility] [address] [place], [place], [address] ALP enzyme act/vol 73 U/L Normal 50-136 [facility]pre [facility] Work Phone: ALT enzyme act/vol 33 U/L Normal 12-78 Compre [facility] Work Phone: Comment on above: [facility] [address] [place], [place], [phone] AST enzyme act/vol 24 U/L Normal 15-37 [facility] Work Phone: Comment on above: [facility] [address] [place], [place], [phone] Bilirubin mass conc 1.20 mg/dL Abnormal 0.20-1.00 Compr ensive Internal Medicine Work Phone: Comment on above: [facility] [address] [place], [place], [address] Bilirubin.direct mass conc 0.18 mg/dL Normal 0.00-0.30 [facility] Work Phone: Comment on above: [facility] [address] [place], [place], [address] BUN/CRE 19.0 {RATIO} Normal 10-20 Comprehensiv e Internal Medicine Work Phone: Calcium mass conc 8.9 mg/dL Normal 8.5-10.1 Compreh ensive Internal Medicine Work Phone: Comment on above: [facility] [address] [place], [place], [address] Chloride molar conc 106 mmol/L Normal 98-107 Compr ensive Internal Medicine Work Phone: Comment on above: [facility] [address] [place], [place], [address] CHOL:HDL 3.20 1 Normal [facility] Work Phone: Cholesterol in HDL mass conc 65 mg/dL Normal [facility] Work Phone: Comment on above: The drugs N-Acetylcy steine and Metamizole may falsely deressthis assay. Reference Range HDL <40 mg/dL Low HDL Cholesterol HDL >or= 60 mg/dL High HDL Cholesterol [facility] [address] [place], [place], [address] Cholesterol in LDL mass conc 108 mg/dL Normal 0-130 [facility] Work Phone: Cholesterol in LDL mass conc 108 mg/dL Normal 0-130 [facility] Work Phone: Comment on above: [facility] [address] [place], [place], [address] Cholesterol in VLDL mass conc 33 mg/dL Normal 5-40 [facility] Work Phone: Cholesterol mass conc 206 mg/dL Abnormal Com prehensive Internal Medicine Work Phone: Comment on above: <200 mg/dL Desirable 200-240 mg/dL Borderline >240 mg/dL High Risk [facility] [address] [place], [place], [address] CO2 molar conc 26.0 mmol/L Normal 21.0-32.0 [facility] Internal Medicine Work Phone: Comment on above: [facility] [address] [place], [place], [phone] Creatinine mass conc 0.79 mg/dL Normal 0.55-1.20 [facility] Work Phone: Comment on above: The validity of the calculated GFR AND GFRAA in patients over70 years has not been determined. Clinical correlation isessential. [facility] [address] [place], [place], [address] EST GFR - AA 97 mL/min Normal Comprehensiv e Internal Medicine Work Phone: Comment on above: GFR Calc GAP 7 1 Normal 5-15 [facility] Work Phone: GFR/1.73 sq M predicted among non-blacks MDRD vol rate/area (S/P/Bld) 80 mL/min/{1.73_m2} Normal Comprehe nsive Internal Medicine Work Phone: Comment on above: Non- GFR Calc [facility] [address] [place], [place], [phone] Globulin Calculated mass conc (S) 3.7 g/dL Abnormal 2.3-3.5 [facility] Work Phone: Globulin mass conc (S) 3.7 g/dL Abnormal 2.3-3.5 [facility] Work Phone: Comment on above: [facility] [address] [place], [place], [phone] Glucose mass conc 95 mg/dL Normal 70-110 Compreh ensive Internal Medicine Work Phone: Comment on above: [facility] [address] [place], [place], [address] LDH 188 U/L Normal 84-246 [facility] Work Phone: Phosphate mass conc 2.8 mg/dL Normal 2.5-4.9 Compr ehensive Internal Medicine Work Phone: Potassium molar conc 3.8 mmol/L Normal 3.5-5.1 Comp rehensive Internal Medicine Work Phone: Comment on above: [facility] [address] [place], [place], [phone] Protein mass conc 7.3 g/dL Normal 6.4-8.2 Compreh ensive Internal Medicine Work Phone: Comment on above: [facility] [address] [place], [place], [address] Sodium molar conc 139 mmol/L Normal 136-145 Compreh ensive Internal Medicine Work Phone: Comment on above: [place] [address] [place], [place], [address] Triglyceride mass conc 167 mg/dL Normal [facility] Work Phone: Comment on above: The drugs N-Acetylcy steine and Metamizole may falsely deressthis assay.Serum Triglycerides Reference Interval Normal <150 mg/dL Borderline high 150 - 199 mg/dL High 200 - 499 mg/dL Very High > or = 500 mg/dL [place] [address] [place], [place], [address] Urea nitrogen mass conc 15 mg/dL Normal 7-18 [facility] Work Phone: Comment on above: [place] [address] [place], [place], [address] URIC 4.6 mg/dL Normal 2.6-6.0 [facility] Work Phone: Comment on above: The drugs N-Acetylcy steine and Metamizole may falsely deressthis assay. Employee Profile 188 U/L Normal 84-246 Comprehe nsive Internal Medicine Work Phone: Comment on above: [place] [address] [place], [place], [address] Employee Profile 33 mg/dL Normal 5-40 Comprehe nsive Internal Medicine Work Phone: Comment on above: [place] [address] [place], [place], [address] Employee Profile 3.20 1 Normal Comprehe nsive Internal Medicine Work Phone: Comment on above: [place] [address] [place], [place], [address] Employee Profile 7 1 Normal 5-15 Comprehe nsive Internal Medicine Work Phone: Comment on above: [place] [address] [place], [place], [address] Employee Profile 73 U/L Normal 50-136 Comprehe nsive Internal Medicine Work Phone: Comment on above: [facility] [address] [place], [place], [address] Employee Profile 2.8 mg/dL Normal 2.5-4.9 Comprehe nsive Internal Medicine Work Phone: Comment on above: [place] [address] [place], [place], [address] Employee Profile 19.0 {RATIO} Normal 10-20 Compre hensive Internal Medicine Work Phone: Comment on above: [place] [address] [place], [place], [address] Employee Profile 97 mL/min Normal Comprehe nsive Internal Medicine Work Phone: Comment on above: GFR Calc [place] [address] [place], [place], [address] Employee Profile 4.6 mg/dL Normal 2.6-6.0 Comprehe nsive Internal Medicine Work Phone: Comment on above: The drugs N-Acetylcy steine and Metamizole may falsely deressthis assay. [place] [address] [place], [place], [phone] Employee Profile 3.7 g/dL Abnormal 2.3-3.5 Comprehe nsive Internal Medicine Work Phone: Comment on above: [place] [address] [place], [place], [address] Employee Profile 7.3 g/dL Normal 6.4-8.2 Comprehe nsive Internal Medicine Work Phone: Comment on above: [place] [address] [place], [place], [address] Nicotine Urine Drug Screenon 02-19-2016 COT DRG SCREEN Negative Normal [facility] Internal Medicine Work Phone: Comment on above: Cotinine is the firs t-stage metabolite of Nicotine. TO BE CONFIRMED Normal [facility] Internal Medicine Work Phone: Comment on above: CONFIRMATORY TESTING FOR ALL POSITIVE URINE DRUG [...] result, particularly whenpreliminary positive results are used. Nicotine Urine Drug Screen Negative Normal [facility] Internal Medicine Work Phone: Comment on above: Cotinine is the firs t-stage metabolite of Nicotine. [facility] [address] [place], [place], [address] How was Urine Obtain ed? [facility] [address] [place], [place], [id number] Nicotine Urine Drug Screen Normal [facility] Internal Medicine Work Phone: Comment on above: CONFIRMATORY TESTING FOR ALL POSITIVE URINE DRUG [...] result, particularly whenpreliminary positive results are used. [facility] [address] [place], [place], [id number] Urinalysis, Employeeon 02-18 BILIRUBIN URINE 1 mg/dL Abnormal [facility] Internal Medicine Work Phone: Comment on above: COLOR OF URINE MAY A FFECT DIPSTICK RESULTS. CLARITY Sl. Cloudy Normal [facility] Internal Medicine Work Phone: Clarity (U) Sl. Cloudy Normal [facility] Work Phone: Comment on above: How was Urine Obtain ed? [facility] [address] [place], [address] COLOR Yellow Normal [facility] Work Phone: Color (U) Yellow Normal [facility] Work Phone: Comment on above: How was Urine Obtain ed? [facility] [address] [place], [address] LEUK ESTERASE 25 /ul Abnormal Comprehensi ve Internal Medicine Work Phone: NITRITE UR Negative Normal [facility] Work Phone: OCCULT BLOOD-UR 10 /ul Abnormal Comprehen sive Internal Medicine Work Phone: pH UR 5.0 1 Normal 5.0 - 8.0 [facility] Work Phone: PROT DIPSTX 30 mg/dL Abnormal [facility] Work Phone: SP.GR. DIPSTX 1.025 1 Normal 1.002-1.03 0 [facility] Work Phone: UROBILI Normal Normal [facility] Work Phone: Urinalysis, Employee Yellow Normal Comp rehensive Internal Medicine Work Phone: Urinalysis, Employee Normal Normal Comp rehensive Internal Medicine Work Phone: Comment on above: How was Urine Obtain ed? [facility] [address] [place], [address] Urinalysis, Employee Sl. Cloudy Normal Comp rehensive Internal Medicine Work Phone: Urinalysis, Employee 25 /ul Abnormal Comp rehensive Internal Medicine Work Phone: Comment on above: How was Urine Obtain ed? [facility] [address] [place], [address] Urinalysis, Employee 10 /ul Abnormal Comp rehensive Internal Medicine Work Phone: Comment on above: How was Urine Obtain ed? [facility] [address] [place], [place], [id number] Urinalysis, Employee 30 mg/dL Abnormal [facility] Work Phone: Comment on above: How was Urine Obtain ed? [facility] [address] [place], [place], [id number] Urinalysis, Employee 5.0 1 Normal 5.0 - 8.0 [facility] Work Phone: Comment on above: How was Urine Obtain ed? [facility] [address] [place], [place], [phone] Urinalysis, Employee 1.025 1 Normal 1.002-1 .03 0 [facility] Work Phone: Comment on above: How was Urine Obtain ed? [facility] [address] [place], [place], [id number] Urinalysis, Employee 1 mg/dL [facility]normal [facility] Work [facility]: Comment on above: COLOR OF URINE MAY A FFECT DIPSTICK RESULTS. How was Urine Obtain ed? [facility] [address] [place], [place], [id number] CBC, Employeeon 02-26-2015 Absolute Lymph 1.68 {X10_3/ul} Normal 0.83-4.51 Compr ehensive Internal Medicine Work Phone: Absolute Neut 4.5 {X10_3/uL} Normal 2.0-7.7 Compreh ensive Internal Medicine Work Phone: Basophils/100 WBC (Bld) 0.6 % Normal 0-1 [facility] Work Phone: Comment on above: Test performed at:[facility] [address] [place], [place] [id number] ; fu 8-19 Basophils/100 WBC Auto (Bld) 0.6 % Normal 0-1 [facility] Work Phone: Eosinophils/100 WBC (Bld) 1.7 % Normal 0-5 [facility] Work Phone: Comment on above: Test performed at:[facility] [address] [place] [address] ; fu 8-19 Eosinophils/100 WBC Auto (Bld) 1.7 % Normal 0-5 [facility] Work Phone: Erythrocyte distribution width (RBC) [Ratio] 12.4 % Normal 11.6-14.6 [facility] Work Phone: Comment on above: Test performed at:[facility] [address] [place] [address] ; fu 8-19 Erythrocyte distribution width Auto Ratio (RBC) 12.4 % Normal 11.6-14.6 [facility] Work Phone: Hematocrit (Bld) [Volume fraction] 37.9 % Normal 37-47 [facility] Work Phone: Comment on above: Test performed at:[facility] [address] [place] [address] ; fu 8-19 Hematocrit Auto Volume Fraction (Bld) 37.9 % Normal 37-47 Comprehens [facility] Internal Medicine Work Phone: Hemoglobin mass conc (Bld) 13.2 g/dL Normal 12.0-15.0 [facility] Work Phone: Comment on above: Test performed at:[facility] [address] [place] [address] ; fu 8-19 Lymphocytes/100 WBC (Bld) 24.1 % Normal 19-41 [facility] Work Phone: Comment on above: Test performed at:[facility] [address] [place] [address] ; fu 8-19 Lymphocytes/100 WBC Auto (Bld) 24.1 % Normal 19-41 [facility] Work Phone: MCH (RBC) [Entitic mass] 31.3 pg Normal 27.0-32.0 [facility] Work Phone: Comment on above: Test performed at:[facility] [address] [place] [address] ; fu 8-19 MCH Auto Entitic mass (RBC) 31.3 pg Normal 27.0-32.0 [facility] Work Phone: MCHC (RBC) [Mass/Vol] 34.8 {g/gl} Normal 32-36 [facility] Internal Medicine Work Phone: Comment on above: Test performed at:[facility] [address] [place] [address] ; fu 8-19 MCHC Auto mass conc (RBC) 34.8 {g/gl} Normal 32-36 [facility] Work Phone: MCV (RBC) [Entitic vol] 89.8 fL Normal 81-99 [facility] Work Phone: Comment on above: Test performed at:[facility] [address] [place] [address] ; fu 8-19 MCV Auto Entitic volume (RBC) 89.8 fL Normal 81-99 [facility] Work Phone: Monocytes/100 WBC Auto (Bld) 8.3 % Normal 0-10 [facility] Work Phone: Comment on above: Test performed at:[facility] [address] [place] [address] ; fu 8-19 Monocytes/100 WBC Auto (Bld) 8.3 % Normal 0-10 [facility] Work Phone: Neutrophils/100 WBC (Bld) 65.2 % Normal 47-70 [facility] Work Phone: Comment on above: Test performed at:[facility] [address] [place], [place] [phone] ; fu 8-19 Neutrophils/100 WBC Auto (Bld) 65.2 % Normal 47-70 [facility] Work Phone: Platelet mean volume (Bld) [Entitic vol] 10.8 fL Normal 6.2-12.0 Comprehens e Internal Medicine Work Phone: Comment on above: Test performed at:[facility] [address] [place], [place] [id number] ; fu 8-19 Platelet mean volume Auto Entitic volume (Bld) 10.8 fL Normal 6.2-12.0 [facility] Work Phone: Platelets (Bld) [#/Vol] 313 10*3/uL Normal 150-450 [facility] Work Phone: Comment on above: Test performed at:[facility] [address] [place], [place] [id number] ; fu 8-19 Platelets Auto #/vol (Bld) 313 10*3/uL Normal 150-450 [facility] Work Phone: RBC (Bld) [#/Vol] 4.22 {M/mm3} Normal 4.2-5.4 [facility] Internal Medicine Work Phone: Comment on above: Test performed at:[facility] [address] [place], [place] [id number] ; fu 8-19 RBC Auto #/vol (Bld) 4.22 {M/mm3} Normal 4.2-5.4 Co [facility] Internal Medicine Work Phone: RDW SD 40.6 fL Normal 35.1-43.9 [facility] Work Phone: WBC (Bld) [#/Vol] 7.0 10*3/uL Normal 4.4-11.0 [facility] Internal Medicine Work Phone: Comment on above: Test performed at:[facility] [address] [place] [address] ; fu 03-06 WBC Auto #/vol (Bld) 7.0 10*3/uL Normal 4.4-11.0 Com prehensive Internal Medicine Work Phone: CBC, Employee 40.6 fL Normal 35.1-43.9 Comprehensi ve Internal Medicine Work Phone: Comment on above: Test performed at:[facility] [address] [place] [address] ; fu - CBC, Employee 4.5 {X10_3/uL} Normal 2.0-7.7 Compreh ensive Internal Medicine Work Phone: Comment on above: Test performed at:[facility] [address] [place] [address] ; fu - CBC, Employee 1.68 {X10_3/ul} Normal 0.83-4.51 Compre [facility] Internal Medicine Work Phone: Comment on above: Test performed at:[facility] [address] [place] [address] ; fu 03-06 Employee Profileon 5 A/G 1.0 {RATIO} Normal 0.9-2.4 [facility] Work Phone: Albumin mass conc 3.4 g/dL Normal 3.4-5.0 Compreh ensive Internal Medicine Work Phone: Comment on above: Test performed at:[facility] [address] [place] [address] Albumin/Globulin mass ratio 1.0 {RATIO} Normal 0.9-2.4 [facility] Work Phone: Comment on above: Test performed at:[facility] [address] [place] [address] ALP enzyme act/vol 68 U/L Normal 50-136 [facility] Work Phone: ALT enzyme act/vol 25 U/L Normal 12-78 Compre [facility] Internal [facility] Work Phone: Comment on above: Test performed at:[facility] [address] [place] [address] AST enzyme act/vol 21 U/L Normal 15-37 [facility] Internal [facility] Work Phone: Comment on above: Test performed at:[facility] [address] [place] [address] Bilirubin mass conc 0.90 mg/dL Normal 0.20-1.00 Compr [facility] Internal Medicine Work Phone: Comment on above: Test performed at:[facility] [address] [place] [address] Bilirubin.direct mass conc 0.15 mg/dL Normal 0.00-0.30 [facility] Work Phone: Comment on above: Test performed at:[facility] [address] [place] [address] BUN/CRE 28.1 {RATIO} Abnormal 10-20 Comprehensiv e Internal Medicine Work Phone: Calcium mass conc 8.8 mg/dL Normal 8.5-10.1 Compreh [facility] Internal Medicine Work Phone: Comment on above: Test performed at:[facility] [address] [place] [address] Chloride molar conc 106 mmol/L Normal 98-107 Compr [facility] Internal Medicine Work Phone: Comment on above: Test performed at:[facility] [address] [place] [address] Cholesterol in HDL mass conc 53 mg/dL Normal [facility] Work Phone: Comment on above: Reference Range HDL <40 mg/dL Low HDL Cholesterol HDL >or= 60 mg/dL High HDL Cholesterol Test performed at:[facility] [address] [place] [address] Cholesterol in LDL mass conc 94 mg/dL Normal 0-130 [facility] Work Phone: Cholesterol in LDL mass conc 94 mg/dL Normal 0-130 [facility] Work Phone: Comment on above: Test performed at:[facility] [address] [place] [address] Cholesterol in VLDL mass conc 16 mg/dL Normal 5-40 [facility] Work Phone: Cholesterol mass conc 163 mg/dL Normal Com prehensive Internal Medicine Work Phone: Comment on above: <200 mg/dL Desirable 200-240 mg/dL Borderline >240 mg/dL High Risk Test performed at:[facility] [address] [place] [address] CO2 molar conc 23.0 mmol/L Normal 21.0-32.0 Comprehen [facility] Internal Medicine Work Phone: Comment on above: Test performed at:[facility] [address] [place] [address] Creatinine mass conc 0.64 mg/dL Normal 0.55-1.20 Comp rehensive Internal Medicine Work Phone: Comment on above: Please note revised CREATININE reference range [id number]/22/2015. Test performed at:[facility] [address] [address] EST GFR - AA 125 mL/min Normal Comprehensiv e Internal Medicine Work Phone: GAP 8 1 Normal 5-15 [facility] Work Phone: GFR/1.73 sq M predicted among non-blacks MDRD vol rate/area (S/P/Bld) 103 mL/min/{1.73_m2} Normal Compreh ensive Internal Medicine Work Phone: Comment on above: Test performed at:[facility] [address] [place], [place] [id number] Globulin Calculated mass conc (S) 3.3 g/dL Normal 2.3-3.5 [facility] Work Phone: Globulin mass conc (S) 3.3 g/dL Normal 2.3-3.5 [facility] Work Phone: Comment on above: Test performed at:[facility] [address] [place] [address] Glucose mass conc 95 mg/dL Normal 70-110 Compreh ensive Internal Medicine Work Phone: Comment on above: Test performed at:[facility] [address] [place] [address] HDLEMP 53 mg/dL Normal [facility] Work Phone: Comment on above: Reference Range HDL <40 mg/dL Low HDL Cholesterol HDL >or= 60 mg/dL High HDL Cholesterol LDH 203 U/L Normal 84-246 [facility] Work Phone: Phosphate mass conc 3.5 mg/dL Normal 2.5-4.9 Compr ehensive Internal Medicine Work Phone: Potassium molar conc 3.9 mmol/L Normal 3.5-5.1 Comp rehensive Internal Medicine Work Phone: Comment on above: Test performed at:[facility] [address] [place] [address] Protein mass conc 6.7 g/dL Normal 6.4-8.2 Compreh ensive Internal Medicine Work Phone: Comment on above: Test performed at:[facility] [address] [place] [address] Sodium molar conc 137 mmol/L Normal 136-145 Compreh ensive Internal Medicine Work Phone: Comment on above: Test performed at:[facility] [address] [place] [address] Triglyceride mass conc 82 mg/dL Normal [facility] Work Phone: Comment on above: Serum Triglycerides Reference Interval Normal <150 mg/dL Borderline high 150 - 199 mg/dL High 200 - 499 mg/dL Very High > or = 500 mg/dL Test performed at:[facility] [address] [place] [address] Urea nitrogen mass conc 18 mg/dL Normal 7-18 [facility] Work Phone: Comment on above: Test performed at:[facility] [address] [place] [address] URIC 4.0 mg/dL Normal 2.6-6.0 [facility] Work Phone: Employee Profile 16 mg/dL Normal 5-40 Comprehe nsive Internal Medicine Work Phone: Comment on above: Test performed at:[facility] [address] [place] [address] Employee Profile 203 U/L Normal 84-246 Comprehe nsive Internal Medicine Work Phone: Comment on above: Test performed at:[facility] [address] [place], [place] [id number] Employee Profile 8 1 Normal 5-15 Comprehe nsive Internal Medicine Work Phone: Comment on above: Test performed at:[facility] [address] [place], [place] [id number] Employee Profile 3.5 mg/dL Normal 2.5-4.9 Comprehe nsive Internal Medicine Work Phone: Comment on above: Test performed at:[facility] [address] [place] [address] Employee Profile 68 U/L Normal 50-136 Comprehe nsive Internal Medicine Work Phone: Comment on above: Test performed at:[facility] [address] [place] [address] Employee Profile 28.1 {RATIO} Abnormal 10-20 Compre hensive Internal Medicine Work Phone: Comment on above: Test performed at:[facility] [address] [place], [place] [id number] Employee Profile 125 mL/min Normal Comprehe nsive Internal Medicine Work Phone: Comment on above: Test performed at:[facility] [address] [place], [place] [id number] Employee Profile 53 mg/dL Normal Comprehe nsive Internal Medicine Work Phone: Comment on above: Reference Range HDL <40 mg/dL Low HDL Cholesterol HDL >or= 60 mg/dL High HDL Cholesterol Test performed at:[facility] [address] [place] [address] Employee Profile 4.0 mg/dL Normal 2.6-6.0 Comprehe nsive Internal Medicine Work Phone: Comment on above: Test performed at:[facility] [address] [place], [place] [address] Employee Profile 3.3 g/dL Normal 2.3-3.5 Comprehe nsive Internal Medicine Work Phone: Comment on above: Test performed at:[facility] [address] [place] [address] Employee Profile 6.7 g/dL Normal 6.4-8.2 Comprehe nsive Internal Medicine Work Phone: Comment on above: Test performed at:[facility] [address] [place], [place] [id number] Urinalysis, Employeeon 02-26 BILIRUBIN URINE 1 mg/dL Abnormal Comprehen sive Internal Medicine Work Phone: Comment on above: COLOR OF URINE MAY A FFECT DIPSTICK RESULTS. CLARITY Sl. Cloudy Normal [facility] Work Phone: Clarity (U) Sl. Cloudy Normal [facility] Work Phone: Comment on above: Test performed at:[facility] [address] [place] [address] COLOR Yellow Normal [facility] Work Phone: Color (U) Yellow Normal [facility] Work Phone: Comment on above: Test performed at:[facility] [address] [address] GLUCOSE, UR Normal Normal [facility] Work Phone: KETONE UR 5 mg/dL Abnormal [facility] Work Phone: LEUK ESTERASE 25 /ul Abnormal Comprehensi ve Internal Medicine Work Phone: OCCULT BLOOD-UR 50 /ul Abnormal Comprehen sive Internal Medicine Work Phone: pH UR 5.0 1 Normal 5.0 - 8.0 [facility] Work Phone: PROT DIPSTX Negative Normal [facility] Internal Medicine Work Phone: SP.GR. DIPSTX 1.025 1 Normal 1.002-1.03 0 [facility] Internal Medicine Work Phone: Urinalysis, Employee 1 mg/dL Abnormal Comp rehensive Internal Medicine Work Phone: Comment on above: COLOR OF URINE MAY A FFECT DIPSTICK RESULTS. Test performed at:[facility] [address] [address] Urinalysis, Employee Normal Normal [facility] Work Phone: Comment on above: Test performed at:[facility] [address] [address] Urinalysis, Employee Sl. Cloudy Normal Comp rehensive Internal Medicine Work Phone: Urinalysis, Employee Yellow Normal Comp rehensive Internal Medicine Work Phone: Urinalysis, Employee 25 /ul Abnormal Comp rehensive Internal Medicine Work Phone: Comment on above: Test performed at:[facility] [address] [address] Urinalysis, Employee 50 /ul Abnormal Comp rehensive Internal Medicine Work Phone: Comment on above: Test performed at:[facility] [address] [place], [place] [address] Urinalysis, Employee Negative Normal Comp rehensive Internal Medicine Work Phone: Comment on above: Test performed at:[facility] [address] [place] [address] Urinalysis, Employee 5.0 1 Normal 5.0 - 8.0 Comp rehensive Internal Medicine Work Phone: Comment on above: Test performed at:[facility] [address] [place] [address] Urinalysis, Employee 1.025 1 Normal 1.002-1 .03 0 [facility] Work Phone: Comment on above: Test performed at:[facility] [address] [place] [address] Urinalysis, Employee 5 mg/dL Abnormal Comp rehensive Internal Medicine Work Phone: Comment on above: Test performed at:[facility] [address] [place] [address] CBCEMon 03-21-2014 Erythrocyte distribution width (RBC) [Ratio] 12.4 % Normal 11.6-14.6 [facility] Internal Medicine Work Phone: Erythrocyte distribution width Auto Ratio (RBC) 12.4 % Normal 11.6-14.6 [facility] Work Phone: Hematocrit (Bld) [Volume fraction] 40.5 % Normal 37-47 [facility] Work Phone: Hematocrit Auto Volume Fraction (Bld) 40.5 % Normal 37-47 Comprehens [facility] Internal [facility] Work Phone: Hemoglobin mass conc (Bld) 13.8 g/dL Normal 12.0-15.0 [facility] Internal Medicine Work Phone: MCH (RBC) [Entitic mass] 30.4 pg Normal 27.0-32.0 [facility] Work Phone: MCH Auto Entitic mass (RBC) 30.4 pg Normal 27.0-32.0 [facility] Work Phone: MCHC (RBC) [Mass/Vol] 34.1 {g/gl} Normal 32-36 Co mprehensive Internal Medicine Work Phone: MCHC Auto mass conc (RBC) 34.1 {g/gl} Normal 32-36 [facility] Work Phone: MCV (RBC) [Entitic vol] 89.2 fL Normal 81-99 [facility] Work Phone: MCV Auto Entitic volume (RBC) 89.2 fL Normal 81-99 [facility] Work Phone: Platelet mean volume (Bld) [Entitic vol] 11.4 fL Normal 6.2-12.0 Comprehensiv e Internal Medicine Work Phone: Platelet mean volume Auto Entitic volume (Bld) 11.4 fL Normal 6.2-12.0 [facility] Work Phone: Platelets (Bld) [#/Vol] 349 10*3/uL Normal 150-450 [facility] Work Phone: Platelets Auto #/vol (Bld) 349 10*3/uL Normal 150-450 [facility] Work Phone: RBC (Bld) [#/Vol] 4.54 {M/mm3} Normal 4.2-5.4 Compr ehensive Internal Medicine Work Phone: RBC Auto #/vol (Bld) 4.54 {M/mm3} Normal 4.2-5.4 Co mprehensive Internal Medicine Work Phone: WBC (Bld) [#/Vol] 6.2 10*3/uL Normal 4.4-11.0 Compre hensive Internal Medicine Work Phone: WBC Auto #/vol (Bld) 6.2 10*3/uL Normal 4.4-11.0 [facility] Work Phone: CBCEM 2.1 % Normal 0-5 [facility] Work Phone: CBCEM 8.4 % Normal 0-10 [facility] Work Phone: CBCEM 24.2 % Normal 19-41 [facility] Work Phone: CBCEM 64.6 % Normal 47-70 [facility] Work Phone: CBCEM 40.1 fL Normal 35.1-43.9 [facility] Work Phone: CBCEM 0.5 % Normal 0-1 [facility] Work Phone: CBCEM 4.0 {X10_3/uL} Normal 2.0-7.7 Comprehens [facility] Internal Medicine Work Phone: CBCEM 1.50 {X10_3/ul} Normal 0.83-4.51 Comprehen [facility] Internal Medicine Work Phone: CMPon 03-21-2014 Albumin mass conc 3.6 g/dL Normal 3.4-5.0 Compreh [facility] Internal Medicine Work Phone: Albumin/Globulin mass ratio 1.0 {RATIO} Normal 0.9-2.4 [facility] Internal Medicine Work Phone: ALP enzyme act/vol 64 U/L Normal 45-117 [facility] Internal Medicine Work Phone: AST enzyme act/vol 23 U/L Normal 15-37 [facility] Internal Medicine Work Phone: Bilirubin mass conc 1.40 mg/dL Abnormal 0.00-1.00 [facility] Internal Medicine Work Phone: Calcium mass conc 9.2 mg/dL Normal 8.5-10.1 Compreh [facility] Internal Medicine Work Phone: Chloride molar conc 104 mmol/L Normal 98-107 [facility] Internal Medicine Work Phone: CO2 molar conc 28.0 mmol/L Normal 21.0-32.0 [facility] Internal [facility] Work Phone: Creatinine mass conc 0.7 mg/dL Normal 0.6-1.0 Comp [facility] Internal Medicine Work Phone: GFR/1.73 sq M predicted among non-blacks MDRD vol rate/area (S/P/Bld) 93 mL/min/{1.73_m2} Normal Comprehe nsive [facility] Work Phone: Globulin mass conc (S) 3.5 g/dL Normal 2.7-4.2 [facility] Work Phone: Protein mass conc 7.1 g/dL Normal 6.4-8.2 [facility] ens[facility] Work Phone: Sodium molar conc 140 mmol/L Normal 136-145 Compreh ens[facility] Work Phone: Urea nitrogen/Creatinine mass ratio 24.3 {RATIO} Abnormal 10-20 [facility] Work Phone: CMP 8 1 Normal 5-15 [facility] Work Phone: CMP 113 mL/min Normal [facility] Work Phone: CMP 3.5 g/dL Normal 2.7-4.2 [facility] Work Phone: EMPon 03-21-2014 ALT enzyme act/vol 29 U/L Normal 12-78 Compre hensive [facility] Work Phone: Cholesterol in HDL mass conc 63 mg/dL Normal [facility] Work Phone: Comment on above: Reference RangeHDL < 40 mg/dL Low HDL CholesterolHDL >or= 60 mg/dL High HDL Cholesterol Cholesterol in LDL mass conc 101 mg/dL Normal 0-130 [facility] Work Phone: Cholesterol mass conc 180 mg/dL Normal Com prehensive [facility] Work Phone: Comment on above: <200 mg/dL Desirable 200-240 mg/dL Borderline>240 mg/dL High Risk Globulin Calculated mass conc (S) 3.5 g/dL Normal 2.7-4.2 [facility] Work Phone: Glucose mass conc 96 mg/dL Normal 70-110 Compreh ensive [facility] Work Phone: Potassium molar conc 3.4 mmol/L Abnormal 3.5-5.1 Comp rehensive [facility] Work Phone: Triglyceride mass conc 79 mg/dL Normal 0-199 [facility] Work Phone: Comment on above: Serum Triglycerides Reference IntervalNormal <150 mg/dLBorderline high 150 - 199 mg/dLHigh 200 - 499 mg/dLVery High > or = 500 mg/dL Urea nitrogen mass conc 17 mg/dL Normal 7-18 [facility] Work Phone: EMP 186 U/L Normal 87-241 [facility] Work Phone: EMP 16 mg/dL Normal 5-40 [facility] Work Phone: EMP 63 mg/dL Normal [facility] Work Phone: Comment on above: Reference RangeHDL < 40 mg/dL Low HDL CholesterolHDL >or= 60 mg/dL High HDL Cholesterol EMP 0.23 mg/dL Normal 0.00-0.30 [facility] Work Phone: EMP 1.40 mg/dL Abnormal 0.00-1.00 [facility] Work Phone: EMP 64 U/L Normal 45-117 [facility] Work Phone: EMP 3.1 mg/dL Normal 2.5-4.9 [facility] Work Phone: EMP 4.7 mg/dL Normal 2.6-6.0 [facility] Work Phone: EMP 24.3 {RATIO} Abnormal 10-20 Comprehensiv e [facility] Work Phone: EMP 7.1 g/dL Normal 6.4-8.2 [facility] Work Phone: UAEMon 03-21-2014 UAEM Cloudy Normal [facility] Work Phone: UAEM Yellow Normal [facility] Work Phone: UAEM 25 /ul Abnormal [facility] Work Phone: UAEM 10 /ul Abnormal [facility] Work Phone: UAEM Negative Normal [facility] Work Phone: UAEM 1 mg/dL Abnormal [facility] Work Phone: UAEM 15 mg/dL Abnormal [facility] Work Phone: UAEM 5.0 1 Normal 5.0 - 8.0 [facility] Work Phone: UAEM 5 mg/dL Abnormal [facility] Work Phone: UAEM 1.025 1 Normal 1.002-1.03 0 [facility] Work Phone: UAEM 3 mg/dL Abnormal [facility] Work Phone: Comment on above: COLOR OF URINE MAY A FFECT DIPSTICK RESULTS. UAEM Normal Normal [facility] Work Phone: VITDon 03-21-2014 VITD 36.5 mg/mL Normal [facility] Work Phone: Comment on above: Vitamin D 25(OH) Sta tus RangeDeficiency <20 ng/mL (50nmol/L)Insuffciency 20 - 30 ng/mL (50 - 75 nmol/L)Sufficiency 30 - 100 ng/mL (75 - 250 nmol/L)Toxicity >100 ng/mL (>250 nmol/L) METABOLIC PANEL, COMPREHENSI VE ([id number])on 10-27-2013 Albumin mass conc 4.0 g/dL Normal 3.5-5.5 Compreh ensive [facility] Work Phone: Comment on above: PATIENT NOT FASTINGP ERFORMED BY: CB [facility] Ogioyr[address]128 [address] [facility] [id number] Information: [id number] Albumin/Globulin mass ratio 1.6 {ratio} Normal 1.1-2.5 [facility] Work Phone: Comment on above: PATIENT NOT FASTINGP ERFORMED BY: CB [facility] Aikxuq3253 [address] [facility] HealthDublin [place] [id number] Information: [id number] ALP enzyme act/vol 60 [iU]/L Normal 39-117 Compre hensive [facility] Work Phone: Comment on above: PATIENT NOT FASTINGP ERFORMED BY: CB [facility] Sbqike4311 [address] RoadDublin [place] [id number] Information: [id number] ALT enzyme act/vol 20 [iU]/L Normal 0-32 Compre [facility] Work Phone: Comment on above: PATIENT NOT FASTINGP ERFORMED BY: KIARA [facility] Jqecde8617 [address] [facility] [place] [id number] Information: [id number] AST enzyme act/vol 22 [iU]/L Normal 0-40 Compre [facility] Work Phone: Comment on above: PATIENT NOT FASTINGP ERFORMED BY: CB [facility] Lznurm6340 [address] [facility] [place] [id number] Information: [id number] Bilirubin mass conc 0.5 mg/dL Normal 0.0-1.2 Compr ensive [facility] Work Phone: Comment on above: PATIENT NOT FASTINGP ERFORMED BY: [facility]CoH[facility]ow[facility] HospitalGdnzrv6215 [address] [facility] [id number] Information: [id number] Calcium mass conc 9.6 mg/dL Normal 8.7-10.2 Compreh ensive [facility] Work Phone: Comment on above: PATIENT NOT FASTINGP ERFORMED BY: KIARA [facility] Alvuzb4428 [address] [facility] [id number] Information: [id number] Chloride molar conc 105 mmol/L Normal 97-108 Compr ensive [facility] Work Phone: Comment on above: PATIENT NOT FASTINGP ERFORMED BY: CB [facility] Jkflhc3916 [address] [facility] [id number] Information: [id number] CO2 molar conc 22 mmol/L Normal 19-28 Comprehens [facility] Work Phone: Comment on above: PATIENT NOT FASTINGP ERFORMED BY: [facility] Ytetjt0898 [address] [facility] [id number] Information: [id number] Creatinine mass conc 0.62 mg/dL Normal 0.57-1.00 Comp [facility] hospitalensive [facility] Work Phone: Comment on above: PATIENT NOT FASTINGP ERFORMED BY: KIARA [facility] Xdaelf9327 [facility] [id number] Information: [id number] GFR/1.73 sq M predicted among blacks CKD-EPI vol rate/area (S/P/Bld) 120 mL/min/1.73 Normal Comprehensiv e [facility] Medicine Work Phone: Comment on above: PATIENT NOT FASTINGP ERFORMED BY: KIARA [facility] Cjzujx7014 [facility] [id number] Information: [id number] GFR/1.73 sq M predicted among non-blacks CKD-EPI vol rate/area (S/P/Bld) 104 mL/min/1.73 Normal [facility] Work Phone: Comment on above: PATIENT NOT FASTINGP ERFORMED BY: LabCo[address] [id number] Information: [id number] Globulin (S) [Mass/Vol] 2.5 g/dL Normal 1.5-4.5 [facility] Work Phone: Comment on above: PATIENT NOT FASTINGP ERFORMED BY: KIARA [facility] Ltflae[address] [id number] Information: [id number] Globulin Calculated mass conc (S) 2.5 g/dL Normal 1.5-4.5 [facility] Work Phone: Glucose mass conc 96 mg/dL Normal 65-99 Compreh ensive [facility] Work Phone: Comment on above: PATIENT NOT FASTINGP ERFORMED BY: KIARA LabCoStephanie Ville [id number] [facility] [id number] Information: [id number] Potassium molar conc 3.8 mmol/L Normal 3.5-5.2 Comp rehensive [facility] Medicine Work Phone: Comment on above: PATIENT NOT FASTINGP ERFORMED BY: LabCoStephanie Ville [id number] [facility] [id number] Information: [id number] Protein mass conc 6.5 g/dL Normal 6.0-8.5 Compreh ensive [facility] Work Phone: Comment on above: PATIENT NOT FASTINGP ERFORMED BY: KIARA [facility] Vpzbjx5910 [address] Roadblin [place] [id number] Information: [id number] Sodium molar conc 141 mmol/L Normal 134-144 Compreh ensive [facility] Work Phone: Comment on above: PATIENT NOT FASTINGP ERFORMED BY: CB [facility] Krgssa8816 [address]bl[address] [place] [id number] Information: [id number] Urea nitrogen mass conc 13 mg/dL Normal 6-24 [facility] Work Phone: Comment on above: PATIENT NOT FASTINGP ERFORMED BY: CB [facility] Yngoxu5156 [facility] Road[facility] [id number] Information: [id number] Urea nitrogen/Creatinine mass ratio 21 mg/mg Normal 9-23 [facility] Work Phone: Comment on above: PATIENT NOT FASTINGP ERFORMED BY: KIARA [facility] Zttuok1809 [address] [facility] [place] [id number] Information: [id number] METABOLIC PANEL, COMPREHENSI VE ([id number])Ordered By: Audio/Visual Manager on 10-27-2013 ALP [Catalytic activity/Vol] 60 U/L Normal 39-117 [facility]; [facility] Work Phone: Comment on above: PATIENT NOT FASTINGP ERFORMED BY: CB [facility] Netxio5420 [address] RoadDublin [place] [id number] Information: [id number] ALT [Catalytic activity/Vol] 20 U/L Normal 0-32 [facility]; [facility] Work Phone: Comment on above: PATIENT NOT FASTINGP ERFORMED BY: CB [facility] Tucckg4901 [address] RoadDublin [place] [id number] Information: [id number] AST [Catalytic activity/Vol] 22 U/L Normal 0-40 [facility]; [facility] Work Phone: Comment on above: PATIENT NOT FASTINGP ERFORMED BY: KIARA LabColeodan Aymnbs3995 [address] RoadDublin [place] [id number] Information: [id number] PARATHORMONE ([id number])on 10-27 Parathyrin.intact mass conc 36 pg/mL Normal 15-65 [facility] Work Phone: Comment on above: PATIENT NOT FASTINGP ERFORMED BY: CB [facility] Ldftiy4815 [address] RoadDublin [place] [id number] PHOSPHORUS ([id number])on 014 Phosphate mass conc 3.2 mg/dL Normal 2.5-4.5 [facility] Work Phone: Comment on above: PATIENT NOT FASTINGP ERFORMED BY: KIARA [facility] Vjxyue3066 [address] RoadDublin [place] [id number] Vitamin D Hydroxy ([id number])on 10-27-2013 25-Hydroxyvitamin D2+25-Hydroxyvitamin D3 mass conc 22.5 ng/mL Abnormal 30.0-100.0 [facility] Work Phone: Comment on above: Vitamin D deficiency has been defined by the [place] ofMedicine and an Endocrine Society practice guideline as alevel of serum 25-OH vitamin D less than 20 ng/mL (1,2).The Endocrine Society went on to further define vitamin Dinsufficiency as a level between 21 and 29 ng/mL (2).1. IOM ([place] of Medicine). 2010. Dietary reference intakes for calcium and D. [place]: The National Academies Press.2. Emily MF, Peggy [place], [employer] PACHECO, et al. Evaluation, treatment, and prevention of vitamin D deficiency: an Endocrine Society clinical practice guideline. JCEM. 2010; 96(7):1911-30. PATIENT NOT FASTINGP ERFORMED BY: CB [facility] Rjyuxj1595 [address] RoadDublin [place] [id number] CBCDon 07-07-2013 Erythrocyte distribution width (RBC) [Ratio] 12.5 % Normal 11.6-14.6 [facility] Work Phone: Erythrocyte distribution width Auto Ratio (RBC) 12.5 % Normal 11.6-14.6 [facility] Work Phone: Hematocrit (Bld) [Volume fraction] 39.4 % Normal 37-47 [facility] Work Phone: Hematocrit Auto Volume Fraction (Bld) 39.4 % Normal 37-47 Comprehens [facility] Work Phone: Hemoglobin mass conc (Bld) 13.4 g/dL Normal 12.0-15.0 [facility] Work Phone: MCH (RBC) [Entitic mass] 30.1 pg Normal 27.0-32.0 [facility] Work Phone: MCH Auto Entitic mass (RBC) 30.1 pg Normal 27.0-32.0 [facility] Work Phone: MCHC (RBC) [Mass/Vol] 34.0 {g/gl} Normal 32-36 [facility] Work Phone: MCHC Auto mass conc (RBC) 34.0 {g/gl} Normal 32-36 [facility] Work Phone: MCV (RBC) [Entitic vol] 88.5 fL Normal 81-99 [facility] Work Phone: MCV Auto Entitic volume (RBC) 88.5 fL Normal 81-99 [facility] Work Phone: Platelet mean volume (Bld) [Entitic vol] 10.9 fL Normal 6.2-12.0 Comprehensiv e [facility] Medicine Work Phone: Platelet mean volume Auto Entitic volume (Bld) 10.9 fL Normal 6.2-12.0 [facility] Work Phone: Platelets (Bld) [#/Vol] 292 10*3/uL Normal 150-450 [facility] Work Phone: Platelets Auto #/vol (Bld) 292 10*3/uL Normal 150-450 [facility] Work Phone: RBC (Bld) [#/Vol] 4.45 {M/mm3} Normal 4.2-5.4 Compr ehensive Internal Medicine Work Phone: RBC Auto #/vol (Bld) 4.45 {M/mm3} Normal 4.2-5.4 Co mprehensive [facility] Work Phone: WBC (Bld) [#/Vol] 6.8 10*3/uL Normal 4.4-11.0 Compre hensive [facility] Work Phone: WBC Auto #/vol (Bld) 6.8 10*3/uL Normal 4.4-11.0 Com prehensive [facility] Medicine Work Phone: CBCD 4.5 {X10_3/uL} Normal 2.0-7.7 Comprehens [facility] Work Phone: CBCD 0.3 % Normal 0-1 [facility] Work Phone: CBCD 0.100 % Normal 0.0-0.9 [facility] Work Phone: Comment on above: IG% - Immature Granu locytes (promyelocytes, myelocytes andmetamyelocytes) > 1% indicates that a LEFT SHIFT is Present. CBCD 1.9 % Normal 0-5 [facility] Work Phone: CBCD 23.8 % Normal 19-41 [facility] Work Phone: CBCD 7.3 % Normal 0-10 [facility] Work Phone: CBCD 66.6 % Normal 47-70 [facility] Work Phone: CBCD 39.9 fL Normal 35.1-43.9 [facility] Work Phone: CMPon 07-07-2013 Albumin mass conc 3.5 g/dL Normal 3.4-5.0 Compreh ensive [facility] Work Phone: Albumin/Globulin mass ratio 1.0 {RATIO} Normal 0.9-2.4 [facility] Work Phone: ALP enzyme act/vol 75 U/L Normal 50-136 Compre hensive [facility] Work Phone: ALT enzyme act/vol 28 U/L Normal 12-78 Compre hensive [facility] Work Phone: AST enzyme act/vol 23 U/L Normal 15-37 Compre hensive [facility] Work Phone: Bilirubin mass conc 1.50 mg/dL Abnormal 0.00-1.00 Compr ehensive [facility] Medicine Work Phone: Calcium mass conc 8.5 mg/dL Normal 8.5-10.1 Compreh ensive [facility] Work Phone: Chloride molar conc 106 mmol/L Normal 98-107 Compr ehensive [facility] Work Phone: CO2 molar conc 25.0 mmol/L Normal 21.0-32.0 Comprehen sive [facility] Work Phone: Creatinine mass conc 0.7 mg/dL Normal 0.6-1.0 Comp rehensive [facility] Medicine Work Phone: GFR/1.73 sq M predicted among non-blacks MDRD vol rate/area (S/P/Bld) 94 mL/min/{1.73_m2} Normal Comprehe nsive [facility] Work Phone: Globulin Calculated mass conc (S) 3.4 g/dL Normal 2.7-4.2 [facility] Work Phone: Globulin mass conc (S) 3.4 g/dL Normal 2.7-4.2 [facility] Work Phone: Glucose mass conc 83 mg/dL Normal 70-110 Compreh ensive [facility] Work Phone: Potassium molar conc 3.8 mmol/L Normal 3.5-5.1 Comp rehensive [facility] Medicine Work Phone: Protein mass conc 6.9 g/dL Normal 6.4-8.2 Compreh ensive [facility] Work Phone: Sodium molar conc 138 mmol/L Normal 136-145 Compreh ensive [facility] Work Phone: Urea nitrogen mass conc 14 mg/dL Normal 7-18 [facility] Work Phone: Urea nitrogen/Creatinine mass ratio 20.0 {RATIO} Normal 10-20 [facility] Work Phone: CMP 114 mL/min Normal [facility] Work Phone: CMP 7 1 Normal 5-15 [facility] Work Phone: CMP 3.4 g/dL Normal 2.7-4.2 [facility] Work Phone: CMP 6.9 g/dL Normal 6.4-8.2 [facility] Work Phone: FT3on 07-07-2013 FT3 2.7 pg/mL Normal 2.18-3.98 [facility] Work Phone: LIPIDon 07-07-2013 Cholesterol in HDL mass conc 59 mg/dL Normal [facility] Work Phone: Comment on above: Reference RangeHDL < 40 mg/dL Low HDL CholesterolHDL >or= 60 mg/dL High HDL Cholesterol Cholesterol in LDL mass conc 119 mg/dL Normal 0-130 [facility] Work Phone: Cholesterol mass conc 195 mg/dL Normal Com prehensive [facility] Medicine Work Phone: Comment on above: <200 mg/dL Desirable 200-240 mg/dL Borderline>240 mg/dL High Risk Triglyceride mass conc 87 mg/dL Normal 0-199 [facility] Work Phone: Comment on above: Serum Triglycerides Reference IntervalNormal <150 mg/dLBorderline high 150 - 199 mg/dLHigh 200 - 499 mg/dLVery High > or = 500 mg/dL LIPID 17 mg/dL Normal 5-40 [facility] Work Phone: MIACREon 07-07-2013 Creatinine mass conc 5.2 {mg/g_CRE} Normal [facility] Work Phone: MIACRE 10.0 mg/L Normal [facility] Work Phone: MIACRE 190.0 mg/dL Normal [facility] Work Phone: PTHINon 07-07-2013 PTHIN 74 pg/mL Abnormal 14-72 [facility] Work Phone: T4Fon 07-07-2013 T4F 1.07 ng/dL Normal 0.76-1.46 [facility] Work Phone: TSHon 07-07-2013 Thyrotropin Qn 1.68 {uIU/mL} Normal 0.358-3.74 Compreh ensive Internal Medicine Work Phone: GALLBLADDERon 03-23-2013 GALLBLADDER See Note Normal [facility] Work Phone: Comment on above: STUDY: ABDOMINAL ULT RASOUND - RIGHT UPPER QUADRANT REASON FOR VISIT: Female, 52 years old. Elevated bilirubin levels. TECHNIQUE: Ultrasound evaluation of the right upper quadrant wasperformed with real-time and static lindo-scale imaging. TECHNICAL QUALITY: Adequate. COMPARISON: None. FINDINGS: Liver: The liver measures 13.6 cm. There is normal echogenicity of theliver. The bile ducts are within normal limits. There is hepatic colorflow. The direction of portal flow is hepatopetal. There is a 1.4 cm x1.4 cm x 0.9 cm cyst in the right lobe. There is a 2 cm x 1.9 cm x 1.5cmcyst in the left lobe. Gallbladder: Normal distended gallbladder. The gallbladder wallmeasures2.1 mm. There is a negative sonographic Richter's sign. There is nopericholecystic fluid. There are no gallstones. Common Bile Duct (C.B.D.): The common bile duct measures 4.0 mm. Pancreas: Normal size of the head, body of the pancreas. The tailportion is obscured due to overlying bowel gas. There is normalechogenicity of the pancreas. There is no demonstrated pancreatic massorcyst. Right Kidney: Normal size of the right kidney. The right pgiclxdcjkvvwv33.1 cm. Normal renal cortex. The right cortex measures 1.4 cm. Thereisno demonstrated renal mass or cyst. There is no right hydronephrosis. IMPRESSION:Small hepatic cysts. Signed:Leo Guardado M.D.March 23, 2013 at 10:17:49 AM [id number] Signed GP/GP If you are the referring physician and would like to consult with theradiologist who provided this interpretation, please contact Jose M Pichardo at [phone]. If this radiologist is unavailable, youwill be directed to another radiologist to assist. If you are a patient with a question regarding this report, pleasecontactyour referring physician directly. Professional Interpretation Provided By: [employer], Phone , These documents contain legally protected [...] Guardado MD on 03/23/13 1020 Sign by: Leo Guardado MD BIDon 03-16-2013 BID 0.18 mg/dL Normal 0.00-0.30 [facility] Work Phone: BITon 03-16-2013 BIT 1.10 mg/dL Abnormal 0.00-1.00 [facility] Work Phone: Urinalysis, Office ([id number])Or dered By: Amber Kerr on 03-15-2013 Bilirubin Ql (U) Negative Normal Comprehe nsive Internal Medicine Work Phone: Glucose Test strip mass conc (U) Negative Normal [facility] Work Phone: Hemoglobin Ql (U) Non Hemolyzed Trace Normal [facility] Work Phone: Hemoglobin Test strip Ql (U) Non Hemolyzed Trace Normal Comprehensiv e Internal Medicine Work Phone: Ketones Ql (U) Negative Normal Comprehens [facility] Work Phone: Leukocyte esterase Test strip Ql (U) Negative Normal [facility] Work Phone: Nitrite Ql (U) Negative Normal Comprehens [facility] Work Phone: Nitrite Test strip Ql (U) Negative Normal [facility] Work Phone: pH (U) 6.0 [pH] Normal [facility] Work Phone: pH Test strip (U) 6.0 [pH] Normal Compreh ensive [facility] Work Phone: Protein Ql (U) Negative Normal Comprehens [facility] Work Phone: Protein Test strip Ql (U) Negative Normal [facility] Work Phone: Specific gravity Relative Density (U) 1.020 1 Normal Comprehensi ve Internal Medicine Work Phone: Urobilinogen mass/time (24H U) Normal Normal [facility] Work Phone: Urinalysis, Office ([id number])on 03-15-2013 Bilirubin Ql (U) Negative Normal Comprehe nsive Internal Medicine; [facility] Work Phone: Glucose Test strip (U) [Mass/Vol] Negative Normal [facility]; [facility] Work Phone: Ketones Ql (U) Negative Normal Comprehens [facility]; [facility] Work Phone: Leukocyte esterase Test strip Ql (U) Negative Normal [facility]; [facility] Work Phone: Nitrite Ql (U) Negative Normal Comprehens [facility]; [facility] Work Phone: Protein Ql (U) Negative Normal Comprehens [facility]; [facility] Work Phone: Blood Glucose , Office ([phone])Ordered By: Kati Pizarro on 01-09-2013 Glucose Glucometer molar conc (BldC) 75 1 Normal [facility] Work Phone: Comment on above: 75 HgA1C , Office ([id number])Ordere d By: Kati Pizarro on 01-09-2013 Hemoglobin A1c/Hemoglobin.total mass fraction (Bld) 5.4 % Normal 4.6 - 7.1 Comprehensiv e [facility] Medicine Work Phone: Comment on above: 5.4 TDHM5rz 06-03-2012 MISC2 Normal [facility] Work Phone: Comment on above: Catecholamines, Ur., Free, Random RESULT LIMITSCreatinine, Random U 181.1 mg/dL 15.0-278.0Epinephrine, Urine 1 ug/L UndefinedEpinephrine 1 ug/g Creat 0-19Norepinephrine, Urine 52 ug/L UndefinedNorepinephrine 29 ug/g Creat 0-111Dopamine, Urine 409 ug/L UndefinedDopamine 226 ug/g Creat 0-348 TESTING PERFORMED AT [facility]. ORIGINAL REPORT ON FILE IN LAB CONTAINS ADDITIONAL TEST SITE INFORMATION. Metanephrines, Pheoc hromocyt RESULT LIMITSNormetanephrine, Ur 369 ug/L UndefinedMetanephrine, Ur 147 ug/L UndefinedMetaneph/Creat Ratio 0.3 UG/MG Creat 0.0-1.0 TESTING PERFORMED AT [facility]. ORIGINAL REPORT ON FILE IN LAB CONTAINS ADDITIONAL TEST SITE INFORMATION. VMA, Random Urine RE SULTS LIMITSVMA, Random Urine 6.6 mg/L UndefinedVMA/Finishing Room Operator, Random U 3.6 mg/g Creat 0.0-6.0 TESTING PERFORMED AT [facility]. ORIGINAL REPORT ON FILE IN LAB CONTAINS ADDITIONAL TEST SITE INFORMATION. KIDNEYon 06-02-2012 KIDNEY See Note Normal [facility] Work Phone: Comment on above: PROCEDURE: RENAL ULT RASOUND - COMPLETE REASON FOR EXAM: Female, 51 years old. Hypertension. TECHNIQUE: Ultrasound evaluation of the kidneys was performed withreal-time and static henning-scale imaging. COMPARISON: None. FINDINGS: RIGHT KIDNEY: Normal location of the right kidney, which is normal insize. The right kidney measures 11.3 x 4.3 x 4.4 cm. There is a normalcortex of the right kidney. The renal cortex measures 1.3 cm.Corticomedullary differentiation is well maintained. There is no rightrenal mass or cyst. Two small, non-shadowing echogenic foci are presentwithin the upper pole. There is no right hydronephrosis. Renal bloodflowis intact. DISTAL RIGHT URETER: There is non-visualization of the distal rightureter. There is no demonstrated right ureteral jet. LEFT KIDNEY: Normal location of the left kidney, which is normal insize.The left kidney measures 11.9 x 4.4 x 5.5 cm. There is a normal cortexofthe left kidney. The renal cortex measures 2.1 cm. Corticomedullarydifferentiation is well maintained. There is no left renal mass or cyst.There are no left renal calculi. There is no left hydronephrosis. Renalblood flow is intact. DISTAL LEFT URETER: There is non-visualization of the distal leftureter.There is no demonstrated left ureteral jet. IMPRESSION:Small, nonobstructive parenchymal versus vascular calcifications upperpoleof right kidney. Otherwise normal study. Signed:Jatinder Hanson M.D.June 02, 2012 at 4:09:04 PM [id number] Signed DL/DL If you are the referring physician and would like to consult with theradiologist who provided this interpretation, please contact Jose M Costello at [phone]. If this radiologist is unavailable, youwillbe directed to another radiologist to assist. If you are a patient with a question regarding this report, pleasecontactyour referring physician directly. Professional Interpretation Provided By: [employer], Phone , These documents contain legally protected [...] the return or destructionofthese documents. Dictated on 06/02/12 1532 by Jatinder Hanson MDTranscribed on 06/02/12 1620 by ITS IMPORTSign by Jatinder Hanson MD on 06/02/12 1621 Sign by: Jatinder Hanson MD RENon 06-02-2012 OTTO 6.56 {ng/mL/hr} Normal Comprehen [facility] Internal Medicine Work Phone: Comment on above: Adult Normal Salt In take: Upright 1.31 - 3.95 Supine 0.15 - 2.33 . Salt Excretion (Na mEq/24 hr): Na= 0 - 30 8.82 - 23.86 Na= 30 - 75 4.09 - 7.73 Na= 75 - 150 1.44 - 2.80 Na= >150 0.39 - 1.31Performed at: - [facility] [id number] [place], [place] [id number] Director: Ariel Jung MD, Phone: [phone] MIACREon 04-19-2012 Creatinine mass conc 7.8 {mg/g_CRE} Normal [facility] Work Phone: MIACRE 10.8 mg/L Normal [facility] Work Phone: MIACRE 136.8 mg/dL Normal [facility] Work Phone: TSHon 04-19-2012 Thyrotropin Qn 1.80 {uIU/mL} Normal 0.358-3.74 Compreh [facility] Work Phone: UACon 04-19-2012 RBC (U) [#/Vol] 0 SEEN Normal 0-5 Comprehen [facility] Work Phone: WBC (U) [#/Vol] 0-5 SEEN Normal 0-5 [facility]hen [facility] Work Phone: UAC SL CLOUDY Normal [facility] Work Phone: UAC Negative Normal [facility] Work Phone: UAC 0 SEEN Normal [facility] Work Phone: UAC RARE Normal [facility] Work Phone: UAC 5-10 SEEN Normal 5-10 [facility] Work Phone: UAC 0-5 SEEN Normal 0-5 [facility] Work Phone: UAC 0.2 EU/dl Normal 0.2 - 1.0 [facility] Work Phone: UAC 7.0 1 Normal 5.0-8.0 [facility] Work Phone: UAC 1.010 1 Normal 1.002-1.03 0 [facility] Work Phone: UAC YELLOW Normal [facility] Work Phone: Vital Signs Date Time Vital Sign Value Performing Clinician Facility 12-27-2024 11:02-0400 Body height 165.1 cm Asa Parth PARTS SALES ADVISOR-C Work Phone: [facility] 12-27-2024 10:56-0400 Body mass index (BMI) [Ratio] 32.3 kg/m2 Asa Parth PARTS SALES ADVISOR-C Work Phone: [facility] 12-27-2024 10:56-0400 Body weight 88.16 kg Asa Parth PARTS SALES ADVISOR-C Work Phone: [facility] 12-27-2024 10:56-0400 Diastolic blood pressure 80 mm[Hg] Asa Parth PARTS SALES ADVISOR-C Work Phone: [facility] 12-27-2024 10:56-0400 Systolic blood pressure 124 mm[Hg] Asa Parth PARTS SALES ADVISOR-C Work Phone: [facility] 12-21-2024 13:31-0400 Body height 165.1 cm Asa Parth PARTS SALES ADVISOR-C Work Phone: [facility] 12-21-2024 13:31-0400 Body mass index (BMI) [Ratio] 32.4 kg/m2 Asa Parth PARTS SALES ADVISOR-C Work Phone: [facility] 12-21-2024 13:31-0400 Body weight 88.45 kg Asa Parth PARTS SALES ADVISOR-C Work Phone: [facility] 12-21-2024 13:31-0400 Diastolic blood pressure 90 mm[Hg] Asa Parth PARTS SALES ADVISOR-C Work Phone: [facility] 12-21-2024 13:31-0400 Heart rate 89 /min Asa Parth PARTS SALES ADVISOR-C Work Phone: [facility] 12-21-2024 13:31-0400 Respiratory rate 18 /min Asa Parth PARTS SALES ADVISOR-C Work Phone: [facility] 12-21-2024 13:31-0400 SaO2% (BldA) [Mass fraction] 95 % Asa Parth PARTS SALES ADVISOR-C Work Phone: [facility] 12-21-2024 13:31-0400 Systolic blood pressure 125 mm[Hg] Asa Alba PARTS SALES ADVISOR-C Work Phone: [facility] 10-18-2024 08:14-0400 Body mass index (BMI) [Ratio] 31.8 kg/m2 Asa Alba PARTS SALES ADVISOR-C Work Phone: [facility] 10-18-2024 08:14-0400 Body weight 86.63 kg Asa Parth PARTS SALES ADVISOR-C Work Phone: [facility] 10-18-2024 08:14-0400 Diastolic blood pressure 91 mm[Hg] Asa Alba PARTS SALES ADVISOR-C Work Phone: [facility] 10-18-2024 08:14-0400 Systolic blood pressure 138 mm[Hg] Asa Alba PARTS SALES ADVISOR-C Work Phone: [facility] 02-19-2023 08:40-0400 Body height 165.1 cm Domenica Slarb FLAT HAMMERER [facility] Work Phone: 02-19-2023 08:40-0400 Body mass index (BMI) [Ratio] 30.45 kg/m2 Domenica Slarb FLAT HAMMERER [facility] Work Phone: 02-19-2023 08:40-0400 Body surface area Derived from formula 1.9 m2 Domenica Slarb FLAT HAMMERER [facility] Work Phone: 02-19-2023 08:40-0400 Body temperature 97.5 [degF] Domenica Slarb FLAT HAMMERER [facility]; [facility] Work Phone: Comment on above: Method: 02-19-2023 08:40-0400 Body weight 83.01 kg Domenica Slarb FLAT HAMMERER [facility] Work Phone: 02-19-2023 08:40-0400 Diastolic blood pressure 68 mm[Hg] Domenica Slarb FLAT HAMMERER [facility]; [facility] Work Phone: Comment on above: Patient Position: Sitting; Cuff Location : Left Arm; Cuff Size: Standard 02-19-2023 08:40-0400 Heart rate 75 /min Domenica Slarb FLAT HAMMERER [facility] Work Phone: Comment on above: Pattern: Regular 02-19-2023 08:40-0400 Respiratory rate 97 /min Domenica Slarb FLAT HAMMERER [facility]; [facility] Work Phone: Comment on above: Pattern: Unlabored 02-19-2023 08:40-0400 SaO2% (BldA) [Mass fraction] 17 % Domenica Slarb FLAT HAMMERER [facility]; [facility] Work Phone: Comment on above: Room air 02-19-2023 08:40-0400 Systolic blood pressure 112 mm[Hg] Domenica Thomas LPN Compreh [facility]; [facility] Work Phone: Comment on above: Patient Position: Sitting; Cuff Location : Left Arm; Cuff Size: Standard 11-16-2022 00:20-0400 Body weight 79.37 kg PARTS SALES ADVISOR-C Asa Alba Work Phone: [facility] 10-23-2022 08:45-0400 Body height 165.1 cm PARTS SALES ADVISOR-Craig Alba Work Phone: [facility] 10-23-2022 08:43-0400 Body mass index (BMI) [Ratio] 29.4 kg/m2 PARTS SALES ADVISOR-Craig Alba Work Phone: [facility] 10-23-2022 08:43-0400 Body weight 80.28 kg PARTS SALES ADVISOR-Craig Alba Work Phone: [facility] 10-23-2022 08:43-0400 Diastolic blood pressure 88 mm[Hg] PARTS SALES ADVISOR-Craig Alba Work Phone: [facility] 10-23-2022 08:43-0400 Heart rate 95 /min PARTS SALES ADVISOR-Craig Alba Work Phone: [facility] 10-23-2022 08:43-0400 Respiratory rate 18 /min PARTS SALES ADVISOR-C Asa Alba Work Phone: [facility] 10-23-2022 08:43-0400 SaO2% (BldA) [Mass fraction] 98 % PARTS SALES ADVISOR-C Asa Alba Work Phone: [facility] 10-23-2022 08:43-0400 Systolic blood pressure 127 mm[Hg] PARTS SALES ADVISOR-C Asa Alba Work Phone: [facility] 10-17-2022 00:57-0400 Body weight 79.37 kg PARTS SALES ADVISOR-C Asa Alba Work Phone: [facility] 09-18-2022 08:38-0500 Body height 165.1 cm PARTS SALES ADVISOR-C Asa Alba Work Phone: [facility] 09-18-2022 08:38-0500 Body weight 79.37 kg PARTS SALES ADVISOR-C Asa Alba Work Phone: [facility] 08-28-2022 08:54-0500 Body height 165.1 cm Domenica William SAN [facility] Work Phone: 08-28-2022 08:54-0500 Body mass index (BMI) [Ratio] 28.62 kg/m2 Domenica Slarb FLAT HAMMERER [facility]; [facility] Work Phone: 08-28-2022 08:54-0500 Body surface area Derived from formula 1.86 m2 Domenica Slarb FLAT HAMMERER [facility]; [facility] Work Phone: 08-28-2022 08:54-0500 Body temperature 97.1 [degF] Domenica Slarb FLAT HAMMERER [facility]; [facility] Work Phone: Comment on above: Method: Temporal 08-28-2022 08:54-0500 Body weight 78.02 kg Domenica Slarb FLAT HAMMERER [facility]; [facility] Work Phone: 08-28-2022 08:54-0500 Diastolic blood pressure 80 mm[Hg] Domenica Slarb FLAT HAMMERER [facility]; [facility] Work Phone: Comment on above: Patient Position: Sitting; Cuff Location : Left Arm; Cuff Size: Standard 08-28-2022 08:54-0500 Heart rate 80 /min Domenica Thomas FLAT HAMMERER [facility]; [facility] Work Phone: Comment on above: Pattern: Regular 08-28-2022 08:54-0500 Respiratory rate 17 /min Domenica William CORTÉSN [facility] Work Phone: Comment on above: Pattern: Unlabored 08-28-2022 08:54-0500 SaO2% (BldA) [Mass fraction] 97 % Domenica Magdarb FLAT HAMMERER [facility]; [facility] Work Phone: Comment on above: Room air 08-28-2022 08:54-0500 Systolic blood pressure 130 mm[Hg] Domenica Thomas LPN Compreh [facility]; [facility] Work Phone: Comment on above: Patient Position: Sitting; Cuff Location : Left Arm; Cuff Size: Standard 08-20-2022 13:53-0500 Body height 165.1 cm PARTS SALES ADVISOR-C Asa Alba Work Phone: [facility] 08-20-2022 13:53-0500 Body mass index (BMI) [Ratio] 28.3 kg/m2 PARTS SALES ADVISOR-Craig Alba Work Phone: [facility] 08-20-2022 13:53-0500 Body weight 77.11 kg PARTS SALES ADVISOR-C Asa Alba Work Phone: [facility] 08-20-2022 13:53-0500 Diastolic blood pressure 74 mm[Hg] PARTS SALES ADVISOR-Craig Alba Work Phone: [facility] 08-20-2022 13:53-0500 Heart rate 95 /min PARTS SALES ADVISOR-Craig Alba Work Phone: [facility] 08-20-2022 13:53-0500 Respiratory rate 18 /min PARTS SALES ADVISOR-Craig Alba Work Phone: [facility] 08-20-2022 13:53-0500 SaO2% (BldA) [Mass fraction] 98 % PARTS SALES ADVISOR-C Asa Alba Work Phone: [facility] 08-20-2022 13:53-0500 Systolic blood pressure 106 mm[Hg] PARTS SALES ADVISOR-C Asa Alba Work Phone: [facility] 08-17-2022 10:32-0500 Body weight 77.56 kg PARTS SALES ADVISOR-C Asa Downsam Work Phone: [facility] 08-17-2022 10:21-0500 Body mass index (BMI) [Ratio] 28.4 kg/m2 PARTS SALES ADVISOR-C Asa Alba Work Phone: [facility] 08-17-2022 10:21-0500 Heart rate 91 /min PARTS SALES ADVISOR-C Asa Alba Work Phone: [facility] 08-17-2022 10:21-0500 SaO2% (BldA) [Mass fraction] 97 % PARTS SALES ADVISOR-C Asa Alba Work Phone: [facility] 08-04-2022 08:59-0500 Body height 165.[address] Jaimee Jarrett Work Phone: [facility] 08-04-2022 08:59-0500 Body mass index (BMI) [Ratio] 28.4 kg/m2 Dr. Jaimee Jarrett Work Phone: [facility] 08-04-2022 08:59-0500 Body weight 77.[address] Jaimee Jarrett Work Phone: [facility] 08-04-2022 08:59-0500 Diastolic blood pressure 86 mm[Hg] Dr. Jaimee Jarrett Work Phone: [facility] 08-04-2022 08:59-0500 Heart rate 90 /min Dr. Jaimee Jarrett Work Phone: [facility] 08-04-2022 08:59-0500 Respiratory rate 18 /min Dr. Jaimee Jarrett Work Phone: [facility] 08-04-2022 08:59-0500 SaO2% (BldA) [Mass fraction] 95 % Dr. Jaimee Jarrett Work Phone: [facility] 08-04-2022 08:59-0500 Systolic blood pressure 122 mm[Hg] Dr. Jaimee Jarrett Work Phone: [facility] 07-07-2022 11:31-0500 Body height 165.1 cm Andegoni Sandalakis EFFICIENCY ANALYST.SCUBA INSTRUCTOR Work Phone: [facility] 07-07-2022 11:31-0500 Body temperature 98.4 [degF] Andegoni Sandalakis EFFICIENCY ANALYST.SCUBA INSTRUCTOR Work Phone: [facility] 07-07-2022 11:31-0500 Body weight 78.11 kg Andegoni Sandalakis EFFICIENCY ANALYST.SCUBA INSTRUCTOR Work Phone: [facility] 07-07-2022 11:31-0500 Diastolic blood pressure 79 mm[Hg] Andegoni Sandalakis EFFICIENCY ANALYST.SCUBA INSTRUCTOR Work Phone: [facility] 07-07-2022 11:31-0500 Heart rate 90 /min Andegoni Sandalakis EFFICIENCY ANALYST.SCUBA INSTRUCTOR Work Phone: [facility] 07-07-2022 11:31-0500 Respiratory rate 12 /min Andegoni Sandalakis EFFICIENCY ANALYST.SCUBA INSTRUCTOR Work Phone: [facility] 07-07-2022 11:31-0500 SaO2% (BldA) [Mass fraction] 98 % Andegoni Sandalakis EFFICIENCY ANALYST.SCUBA INSTRUCTOR Work Phone: [facility] 07-07-2022 11:31-0500 Systolic blood pressure 112 mm[Hg] Andegoni Sandalakis EFFICIENCY ANALYST.SCUBA INSTRUCTOR Work Phone: [facility] 06-28-2022 09:57-0500 SaO2% (BldA) [Mass fraction] 99 % JACOB FAROOQ [facility] Comment on above: Order Comment: Specimen Type: ARTERIAL B LOOD SPECIMENOrdering Facility: [facility] Address: [address] [place], [place] [address] Performed By: #### A LLBG ####[facility] [id number] [place] [id number] [facility] 06-28-2022 05:52-0500 SaO2% (BldA) [Mass fraction] 99 % JACOB FAROOQ [facility] Comment on above: Order Comment: Specimen Type: ARTERIAL B LOOD SPECIMENOrdering Facility: [facility] Address: [address] [place], [place] [id number] Performed By: #### A LLBG ####[facility] [id number] [place] [id number] [facility] 06-28-2022 01:43-0500 SaO2% (BldA) [Mass fraction] 97 % JACOB FAROOQ [facility] Comment on above: Order Comment: Specimen Type: ARTERIAL B LOOD SPECIMENOrdering Facility: [facility] Address: [address] [place], [place] [id number] Performed By: #### A LLBG ####[facility] [id number] [place] [id number] [facility] 06-27-2022 21:31-0500 SaO2% (BldA) [Mass fraction] 98 % JACOB FAROOQ [facility] Comment on above: Order Comment: Specimen Type: ARTERIAL B LOOD SPECIMENOrdering Facility: [facility] Address: [address] [place], [place] [address] Performed By: #### A LLBG ####[facility] [id number] [place] [id number] [facility] 06-27-2022 17:28-0500 SaO2% (BldA) [Mass fraction] 98 % JACOB FAROOQ [facility] Comment on above: Order Comment: Specimen Type: ARTERIAL B LOOD SPECIMENOrdering Facility: [facility] Address: [address] [place], [place] [id number] Performed By: #### A LLBG ####[facility] [id number] [place] [id number] [facility] 06-27-2022 13:22-0500 SaO2% (BldA) [Mass fraction] 97 % JACOB FAROOQ [facility] Comment on above: Order Comment: Specimen Type: ARTERIAL B LOOD SPECIMENOrdering Facility: [facility] Address: [address] [place], [place] [address] Performed By: #### A LLBG ####[facility] [id number] [address] 06-27-2022 10:06-0500 SaO2% (BldA) [Mass fraction] 98 % JACOB FAROOQ [facility] Comment on above: Order Comment: Specimen Type: ARTERIAL B LOOD SPECIMENOrdering Facility: [facility] Address: [address] [place] [address] Performed By: #### A LLBG ####[facility] [id number] [address] 06-27-2022 07:39-0500 SaO2% (BldA) [Mass fraction] 99 % JACOB FAROOQ [facility] Comment on above: Order Comment: Specimen Type: ARTERIAL B LOOD SPECIMENOrdering Facility: [facility] Address: [address] [place], [place] [address] Performed By: #### A LLBG ####[facility] [id number] [place] [id number] [facility] 06-27-2022 05:51-0500 SaO2% (BldA) [Mass fraction] 98 % JACOB FAROOQ [facility] Comment on above: Order Comment: Specimen Type: ARTERIAL B LOOD SPECIMENOrdering Facility: [facility] Address: [address] [place] [address] Performed By: #### A LLBG ####[facility] [id number] [place] [id number] [facility] 06-27-2022 04:33-0500 SaO2% (BldA) [Mass fraction] 98 % JACOB FAROOQ [facility] Comment on above: Order Comment: Specimen Type: ARTERIAL B LOOD SPECIMENOrdering Facility: [facility] Address: [address] [place] [address] Performed By: #### A LLBG ####[facility] [id number] [address] 06-27-2022 02:02-0500 SaO2% (BldA) [Mass fraction] 98 % JACOB FAROOQ [facility] Comment on above: Order Comment: Specimen Type: ARTERIAL B LOOD SPECIMENOrdering Facility: [facility] Address: [address] [place] [address] Performed By: #### A LLBG ####[facility] [id number] [address] 06-26-2022 21:28-0500 SaO2% (BldA) [Mass fraction] 99 % JACOB FAROOQ [facility] Comment on above: Order Comment: Specimen Type: ARTERIAL B LOOD SPECIMENOrdering Facility: [facility] Address: [address] [place] [address] Performed By: #### A LLBG ####[facility] [id number] [place] [id number] [facility] 06-26-2022 18:39-0500 SaO2% (BldA) [Mass fraction] 98 % JACOB FAROOQ [facility] Comment on above: Order Comment: Specimen Type: ARTERIAL B LOOD SPECIMENOrdering Facility: [facility] Address: [address] [place] [id number] Performed By: #### A LLBG ####[facility] [id number] [place] [id number] [facility] 06-26-2022 17:20-0500 SaO2% (BldA) [Mass fraction] 99 % JACOB FAROOQ [facility] Comment on above: Order Comment: Specimen Type: ARTERIAL B LOOD SPECIMENOrdering Facility: [facility] Address: [address] [place] [address] Performed By: #### A LLBG ####[facility] [id number] [place] [id number] [facility] 06-26-2022 15:23-0500 SaO2% (BldA) [Mass fraction] 99 % JACOB FAROOQ [facility] Comment on above: Order Comment: Specimen Type: ARTERIAL B LOOD SPECIMENOrdering Facility: [facility] Address: [address] [place] [address] Performed By: #### A LLBG ####[facility] [id number] [address] [facility] [place] 06-26-2022 13:28-0500 SaO2% (BldA) [Mass fraction] 99 % JACOB FAROOQ [facility] Comment on above: Order Comment: Specimen Type: ARTERIAL B LOOD SPECIMENOrdering Facility: [facility] Address: [address] [place] [address] Performed By: #### A LLBG ####[facility] [id number] [place] [id number] [facility] 06-26-2022 12:50-0500 SaO2% (BldA) [Mass fraction] 99 % JACOB FAROOQ [facility] Comment on above: Order Comment: Specimen Type: ARTERIAL B LOOD SPECIMENOrdering Facility: [facility] Address: [address] [place] [address] Performed By: #### A LLBG ####[facility] [id number] [place] [id number] [facility] 06-26-2022 12:00-0500 SaO2% (BldA) [Mass fraction] 99 % JACOB FAROOQ [facility] Comment on above: Order Comment: Specimen Type: ARTERIAL B LOOD SPECIMENOrdering Facility: [facility] Address: [address] [place], [place] [address] Performed By: #### A LLBG ####[facility] [id number] [place] [id number] [facility] 06-26-2022 11:02-0500 SaO2% (BldA) [Mass fraction] 98 % JACOB FAROOQ [facility] Comment on above: Order Comment: Specimen Type: ARTERIAL B LOOD SPECIMENOrdering Facility: [facility] Address: [address] [place], [place] [address] Performed By: #### A LLBG ####[facility] [id number] [place] [id number] [facility] 06-26-2022 09:02-0500 SaO2% (BldA) [Mass fraction] 98 % JACOB FAROOQ [facility] Comment on above: Order Comment: Specimen Type: ARTERIAL B LOOD SPECIMENOrdering Facility: [facility] Address: [address] [place] [address] Performed By: #### A LLBG ####[facility] [id number] [place] [id number] [facility] 06-24-2022 14:30-0500 Diastolic blood pressure 70 mm[Hg] Ranjit Roque MD Work Phone: [facility] 06-24-2022 14:30-0500 Systolic blood pressure 108 mm[Hg] Ranjit Roque MD Work Phone: [facility] 06-24-2022 14:29-0500 Body height 165.1 cm Ranjit Roque MD Work Phone: [facility] 06-24-2022 14:29-0500 Body weight 79.38 kg Ranjit Roque MD Work Phone: [facility] 06-24-2022 14:29-0500 Heart rate 100 /min Ranjit Roque MD Work Phone: [facility] 06-24-2022 14:29-0500 Respiratory rate 12 /min Ranjit Roque MD Work Phone: [facility] 06-24-2022 14:29-0500 SaO2% (BldA) [Mass fraction] 94 % Ranjit Roque MD Work Phone: [facility] 05-29-2022 10:00-0500 Body height 165.1 cm PARTS SALES ADVISOR-C Asa Parth Work Phone: [facility] Work Phone: 05-29-2022 10:00-0500 Body mass index (BMI) [Ratio] 29.9 kg/m2 PARTS SALES ADVISOR-C Asa Parth Work Phone: [facility] 05-29-2022 10:00-0500 Body weight 81.64 kg PARTS SALES ADVISOR-C Asa Parth Work Phone: [facility] 05-29-2022 10:00-0500 Diastolic blood pressure 70 mm[Hg] PARTS SALES ADVISOR-C Asa Parth Work Phone: [facility] 05-29-2022 10:00-0500 Heart rate 69 /min PARTS SALES ADVISOR-C Asa Parth Work Phone: [facility] 05-29-2022 10:00-0500 Respiratory rate 16 /min PARTS SALES ADVISOR-C Asa Parth Work Phone: [facility] 05-29-2022 10:00-0500 Systolic blood pressure 100 mm[Hg] PARTS SALES ADVISOR-C Asa Parth Work Phone: [facility] 05-19-2022 07:43-0400 Body weight 82.1 kg [employer]S SALES ADVISOR-C Asa Parth Work Phone: [facility] 05-18-2022 08:07-0400 Body mass index (BMI) [Ratio] 30.1 kg/m2 PARTS SALES ADVISOR-C Asa Alba Work Phone: [facility] 04-16-2022 11:11-0400 Body mass index (BMI) [Ratio] 30.2 kg/m2 [employer]S SALES ADVISOR-C Asa Alba Work Phone: [facility] 04-16-2022 11:11-0400 Body weight 82.24 kg PARTS SALES ADVISOR-C Asa Alba Work Phone: [facility] 04-16-2022 11:11-0400 Diastolic blood pressure 98 mm[Hg] PARTS SALES ADVISOR-C Asa Alba Work Phone: [facility] 04-16-2022 11:11-0400 Heart rate 84 /min PARTS SALES ADVISOR-C Asa Alba Work Phone: [facility] 04-16-2022 11:11-0400 Respiratory rate 16 /min PARTS SALES ADVISOR-C Asa Alba Work Phone: [facility] 04-16-2022 11:11-0400 Systolic blood pressure 128 mm[Hg] PARTS SALES ADVISOR-C Asa Alba Work Phone: [facility] 02-20-2022 07:49-0400 Body height 165.1 cm Isela De La Cruz [facility] Work Phone: 02-20-2022 07:49-0400 Body mass index (BMI) [Ratio] 29.87 kg/m2 Isela Gravius [facility]; [facility] Work Phone: 02-20-2022 07:49-0400 Body surface area Derived from formula 1.89 m2 Isela Gravius [facility]; [facility] Work Phone: 02-20-2022 07:49-0400 Body temperature 97.3 [degF] Isela De La Cruz [facility]; [facility] Work Phone: Comment on above: Method: Infrared 02-20-2022 07:49-0400 Body weight 81.42 kg Isela De La Cruz [facility]; [facility] Work Phone: 02-20-2022 07:49-0400 Diastolic blood pressure 70 mm[Hg] Isela De La Cruz [facility]; [facility] Work Phone: Comment on above: Patient Position: Sitting; Cuff Location : Left Arm; Cuff Size: Standard 02-20-2022 07:49-0400 Heart rate 87 /min Isela De La Cruz [facility]; [facility] Work Phone: Comment on above: Pattern: Regular 02-20-2022 07:49-0400 Respiratory rate 18 /min Isela De La Cruz [facility]; [facility] Work Phone: Comment on above: Pattern: Unlabored 02-20-2022 07:49-0400 SaO2% (BldA) [Mass fraction] 97 % Isela De La Cruz [facility]; [facility] Work Phone: Comment on above: Room air 02-20-2022 07:49-0400 Systolic blood pressure 101 mm[Hg] Isela De La Cruz [facility]; [facility] Work Phone: Comment on above: Patient Position: Sitting; Cuff Location : Left Arm; Cuff Size: Standard 01-23-2022 09:09-0400 Body height 165.1 cm Domenica William [facility]; [facility] Work Phone: 01-23-2022 09:09-0400 Body mass index (BMI) [Ratio] 30.87 kg/m2 Domenica Magdarb [facility]; [facility] Work Phone: 01-23-2022 09:09-0400 Body surface area Derived from formula 1.92 m2 Domenica Slarb [facility]; [facility] Work Phone: 01-23-2022 09:09-0400 Body temperature 97.1 [degF] Domenica Slarb [facility]; [facility] Work Phone: 01-23-2022 09:09-0400 Body weight 84.14 kg Domenica Slarb FLAT HAMMERER [facility]; [facility] Work Phone: 01-23-2022 09:09-0400 Diastolic blood pressure 82 mm[Hg] Domenica Slarb [employer]AT HAMMER[employer] [facility]; [facility] Work Phone: Comment on above: Patient Position: Sitting; Cuff Location : Left Arm; Cuff Size: Standard 01-23-2022 09:09-0400 Heart rate 75 /min Domenica Slarb [employer]AT HAMMER[employer] [facility]; [facility] Work Phone: Comment on above: Pattern: Regular 01-23-2022 09:09-0400 Respiratory rate 16 /min Domenica Slarb [employer]AT HAM[employer] [facility]; [facility] Work Phone: Comment on above: Pattern: Unlabored 01-23-2022 09:09-0400 SaO2% (BldA) [Mass fraction] 96 % Domenica Slarb FLAT HAMMERER [facility]; [facility] Work Phone: Comment on above: Room air 01-23-2022 09:09-0400 Systolic blood pressure 126 mm[Hg] Domenica Slarb FLAT HAMMERER Compreh ensive [facility]; [facility] Work Phone: Comment on above: Patient Position: Sitting; Cuff Location : Left Arm; Cuff Size: Standard 12-31-2021 15:24-0400 Body height 165.1 cm [facility]; [facility] Work Phone: 12-31-2021 15:24-0400 Body mass index (BMI) [Ratio] 30.87 kg/m2 [facility]; [facility] Work Phone: 12-31-2021 15:24-0400 Body surface area Derived from formula 1.92 m2 [facility]; [facility] Work Phone: 12-31-2021 15:24-0400 Body temperature 96.9 [degF] [facility]; [facility] Work Phone: Comment on above: Method: Thermal Scan 12-31-2021 15:24-0400 Body weight 84.14 kg Amber Kerr [facility]; [facility] Work Phone: 12-31-2021 15:24-0400 Diastolic blood pressure 82 mm[Hg] Amber Kerr [facility]; [facility] Work Phone: Comment on above: Patient Position: Sitting; Cuff Location : Left Arm; Cuff Size: Standard 12-31-2021 15:24-0400 Heart rate 103 /min Amber Kerr [facility]; [facility] Work Phone: Comment on above: Pattern: Regular 12-31-2021 15:24-0400 Respiratory rate 16 /min Amber Kerr [facility]; [facility] Work Phone: Comment on above: Pattern: Unlabored 12-31-2021 15:24-0400 Systolic blood pressure 122 mm[Hg] Amber Kerr [facility]; [facility] Work Phone: Comment on above: Patient Position: Sitting; Cuff Location : Left Arm; Cuff Size: Standard 07-04-2021 11:33-0500 Body height 165.1 cm Ramona Minayafoster SCHREIBER Work Phone: [facility]; [facility] Work Phone: 07-04-2021 11:33-0500 Body mass index (BMI) [Ratio] 30.87 kg/m2 Ramona Lynchcydney SCHREIBER Work Phone: [facility]; [facility] Work Phone: 07-04-2021 11:33-0500 Body surface area Derived from formula 1.92 m2 SherinRoz Graham CNP Work Phone: [facility]; [facility] Work Phone: 07-04-2021 11:33-0500 Body weight 84.14 kg Ramona Graham SCUBA INSTRUCTOR Work Phone: [facility]; [facility] Work Phone: 07-04-2021 11:33-0500 Diastolic blood pressure 80 mm[Hg] Ramona Graham SCUBA INSTRUCTOR Work Phone: [facility]; [facility] Work Phone: Comment on above: Patient Position: Supine; Cuff Location: Right Arm; Cuff Size: Standard 07-04-2021 11:33-0500 Systolic blood pressure 116 mm[Hg] Ramona Graham SCUBA INSTRUCTOR Work Phone: [facility]; [facility] Work Phone: Comment on above: Patient Position: Supine; Cuff Location: Right Arm; Cuff Size: Standard 05-27-2021 13:49-0500 Body height 165.1 cm Susana Zamora LPN [facility]; [facility] Work Phone: 05-27-2021 13:49-0500 Body mass index (BMI) [Ratio] 30.87 kg/m2 Susana Zamora LPN [facility]; [facility] Work Phone: 05-27-2021 13:49-0500 Body surface area Derived from formula 1.92 m2 Susana Zamora LPN [facility]; [facility] Work Phone: 05-27-2021 13:49-0500 Body temperature 97.1 [degF] Susana Zamora LPN [facility]; [facility] Work Phone: Comment on above: Method: Temporal 05-27-2021 13:49-0500 Body weight 84.14 kg Susana Zamora LPN [facility]; [facility] Work Phone: 05-27-2021 13:49-0500 Diastolic blood pressure 90 mm[Hg] Susana Zamora LPN [facility]; [facility] Work Phone: Comment on above: Patient Position: Sitting; Cuff Location : Left Arm; Cuff Size: Standard 05-27-2021 13:49-0500 Heart rate 93 /min Susana Zamora LPN [facility]; [facility] Work Phone: Comment on above: Pattern: Regular 05-27-2021 13:49-0500 Respiratory rate 16 /min Susana Zamora LPN [facility]; [facility] Work Phone: Comment on above: Pattern: Unlabored 05-27-2021 13:49-0500 SaO2% (BldA) [Mass fraction] 98 % Susana Zamora FLAT HAMMERER [facility]; [facility] Work Phone: Comment on above: Room air 05-27-2021 13:49-0500 Systolic blood pressure 118 mm[Hg] Susana Zamora LPN [facility]pre [facility]; [facility] Work Phone: Comment on above: Patient Position: Sitting; Cuff Location : Left Arm; Cuff Size: Standard 05-13-2021 14:03-0400 Body height 165.1 cm Susana Zamora JASWINDER [facility]; [facility] Work Phone: 05-13-2021 14:03-0400 Body mass index (BMI) [Ratio] 31.12 kg/m2 Susana Zamora JASWINDER [facility]; [facility] Work Phone: 05-13-2021 14:03-0400 Body surface area Derived from formula 1.92 m2 Susana Zamora JASWINDER [facility]; [facility] Work Phone: 05-13-2021 14:03-0400 Body temperature 97.3 [degF] Susana Zamora LPN [facility]; [facility] Work Phone: Comment on above: Method: Temporal 05-13-2021 14:03-0400 Body weight 84.84 kg Susana Zamora JASWINDER [facility]; [facility] Work Phone: 05-13-2021 14:03-0400 Diastolic blood pressure 84 mm[Hg] Susana Zamora FLAT HAMMERER [facility]; [facility] Work Phone: Comment on above: Patient Position: Sitting; Cuff Location : Left Arm; Cuff Size: Standard 05-13-2021 14:03-0400 Heart rate 100 /min Susana Zamora JASWINDER [facility]; [facility] Work Phone: Comment on above: Pattern: Regular 05-13-2021 14:03-0400 Respiratory rate 16 /min Susana Zamora LPN [facility]; [facility] Work Phone: Comment on above: Pattern: Unlabored 05-13-2021 14:03-0400 SaO2% (BldA) [Mass fraction] 93 % Susana Zamora LPN [facility]; [facility] Work Phone: Comment on above: Room air 05-13-2021 14:03-0400 Systolic blood pressure 138 mm[Hg] Susana Zamora LPN [facility]pre [facility]; [facility] Work Phone: Comment on above: Patient Position: Sitting; Cuff Location : Left Arm; Cuff Size: Standard 04-04-2021 09:39-0400 Body height 165.1 cm Susana Zamora LPN [facility]; [facility] Work Phone: Comment on above: reported by pt, jose cruz 04-04-2021 09:39-0400 Body mass index (BMI) [Ratio] 30.79 kg/m2 Susana Zamora FLAT HAMMERER [facility]; [facility] Work Phone: Comment on above: reported by pt, virtual 04-04-2021 09:39-0400 Body surface area Derived from formula 1.91 m2 Susana Zamora LPN [facility]; [facility] Work Phone: Comment on above: reported by pt, virtual 04-04-2021 09:39-0400 Body weight 83.93 kg Susana Zamora FLAT HAMMERER [facility]; [facility] Work Phone: Comment on above: reported by pt, virtual 04-04-2021 09:39-0400 Diastolic blood pressure 102 mm[Hg] Susana Zamora FLAT HAMMERER [facility]; [facility] Work Phone: Comment on above: Patient Position: Sitting; Cuff Location : Left Arm; Cuff Size: Standard reported by [email or web address] 04-04-2021 09:39-0400 Heart rate 82 /min Susana Zamora FLAT HAMMERER [facility]; [facility] Work Phone: Comment on above: Pattern: Regular reported by pt ophelia ual 04-04-2021 09:39-0400 Systolic blood pressure 139 mm[Hg] Susanaricardo Zamora JASWINDER [place] [facility]; [facility] Work Phone: Comment on above: Patient Position: Sitting; Cuff Location : Left Arm; Cuff Size: Standard reported by ptophelia ual 03-21-2021 09:28-0400 Body height 165.1 cm Susana Noah SAN [facility]; [facility] Work Phone: 03-21-2021 09:28-0400 Body mass index (BMI) [Ratio] 30.79 kg/m2 Susana Noah SAN [facility]; [facility] Work Phone: 03-21-2021 09:28-0400 Body surface area Derived from formula 1.91 m2 Susana Zamora LPN [facility]; [facility] Work Phone: 03-21-2021 09:28-0400 Body temperature 97.5 [degF] Susanaricardo Zamora JASWINDER [facility]; [facility] Work Phone: Comment on above: Method: Temporal 03-21-2021 09:28-0400 Body weight 83.93 kg Susana Zamoar JASWINDER [facility]; [facility] Work Phone: 03-21-2021 09:28-0400 Diastolic blood pressure 98 mm[Hg] Susana Zamora LPN [facility]; [facility] Work Phone: Comment on above: Patient Position: Sitting; Cuff Location : Left Arm; Cuff Size: Standard 03-21-2021 09:28-0400 Heart rate 77 /min Susana Noah [facility]; [facility] Work Phone: Comment on above: Pattern: Regular 03-21-2021 09:28-0400 Respiratory rate 16 /min Susanaricardo Zamora JASWINDER [facility]; [facility] Work Phone: Comment on above: Pattern: Unlabored 03-21-2021 09:28-0400 SaO2% (BldA) [Mass fraction] 94 % Susana Noah SAN [facility]; [facility] Work Phone: Comment on above: Room air 03-21-2021 09:28-0400 Systolic blood pressure 128 mm[Hg] Susana Zamora JASWINDER Compre [facility]; [facility] Work Phone: Comment on above: Patient Position: Sitting; Cuff Location : Left Arm; Cuff Size: Standard 05-28-2020 13:50-0500 BMI (Body Mass Index) 30.79 kg/m2 Ervin Dumont LPN Comprehen sive [facility] Work Phone: 05-28-2020 13:50-0500 Body Temperature 96.9 [degF] Ervin Dumont LPN [facility] Work Phone: Comment on above: Method: Infrared 05-28-2020 13:50-0500 Body weight 83.93 kg Ervin Dumont LPN [facility] Work Phone: 05-28-2020 13:50-0500 BP Diastolic 86 mm[Hg] Ervin Dumont LPN [facility] Work Phone: Comment on above: Patient Position: Sitting; Cuff Location : Left Arm; Cuff Size: Standard 05-28-2020 13:50-0500 BP Systolic 142 mm[Hg] Ervin Dumont LPN [facility] Work Phone: Comment on above: Patient Position: Sitting; Cuff Location : Left Arm; Cuff Size: Standard 05-28-2020 13:50-0500 BSA (Body Surface Area) 1.91 m2 Ervin Dumont LPN Compreh ensive [facility] Work Phone: 05-28-2020 13:50-0500 Height 165.1 cm Ervin Dumont LPN [facility] Work Phone: 05-28-2020 13:50-0500 Pulse (Heart Rate) 98 /min Ervin Dumont LPN Comprehensiv e [facility] Medicine Work Phone: Comment on above: Pattern: Regular 05-28-2020 13:50-0500 Pulse Oximetry 95 % Ramona Graham [facility] Work Phone: Comment on above: Room air 05-28-2020 13:50-0500 Respiratory Rate 16 /min Ervin Dumont LPN [facility] Work Phone: Comment on above: Pattern: Unlabored 05-28-2020 13:50-0500 SaO2% (BldA) [Mass fraction] 95 % Ervin Dumont LPN [facility]; [facility] Work Phone: Comment on above: Room air 03-05-2020 08:49-0400 BMI (Body Mass Index) 31.66 kg/m2 Ramona Minayafoster Comprehens [facility] Work Phone: 03-05-2020 08:49-0400 BMI (Body Mass Index) 30.79 kg/m2 Ervin Dumont LPN Comprehen sive [facility] Work Phone: 03-05-2020 08:49-0400 Body Temperature 97.4 [degF] Ervin Dumont LPN [facility] Work Phone: Comment on above: Method: Infrared 03-05-2020 08:49-0400 Body weight 86.3 kg Ramona Rachana [facility] Work Phone: 03-05-2020 08:49-0400 Body weight 83.93 kg Ervin Dumont LPN [facility] Work Phone: 03-05-2020 08:49-0400 BP Diastolic 70 mm[Hg] Ervin Dumont LPN [facility] Work Phone: Comment on above: Patient Position: Sitting; Cuff Location : Left Arm; Cuff Size: Standard 03-05-2020 08:49-0400 BP Systolic 124 mm[Hg] Ervin Dumont LPN [facility] Work Phone: Comment on above: Patient Position: Sitting; Cuff Location : Left Arm; Cuff Size: Standard 03-05-2020 08:49-0400 BSA (Body Surface Area) 1.94 m2 Ramona Graham Ignacia [facility] Work Phone: 03-05-2020 08:49-0400 BSA (Body Surface Area) 1.91 m2 Ervin Dumont LPN Compreh ensive [facility] Work Phone: 03-05-2020 08:49-0400 Height 165.1 cm Ervin Dumont LPN [facility] Work Phone: 03-05-2020 08:49-0400 Pulse (Heart Rate) 100 /min Ervin Dumont LPN Comprehensiv e [facility] Work Phone: Comment on above: Pattern: Regular 03-05-2020 08:49-0400 Pulse Oximetry 97 % Ramona Graham [facility] Work Phone: Comment on above: Room air 03-05-2020 08:49-0400 Respiratory Rate 17 /min Ervin Dumont LPN [facility] Work Phone: Comment on above: Pattern: Unlabored 03-05-2020 08:49-0400 SaO2% (BldA) [Mass fraction] 97 % Ervin Dumont LPN [facility]; [facility] Work Phone: Comment on above: Room air 06-05-2019 11:03-0500 BMI (Body Mass Index) 31.66 kg/m2 Susana Noah JASWINDER Comprehe nsive [facility] Work Phone: 06-05-2019 11:03-0500 Body Temperature 98.9 [degF] Susana Zamora LPN [facility] Work Phone: Comment on above: Method: Temporal 06-05-2019 11:03-0500 Body weight 86.3 kg Susana Zamora LPN [facility] Work Phone: 06-05-2019 11:03-0500 BP Diastolic 90 mm[Hg] Susana Zamora LPN [facility] Work Phone: Comment on above: Patient Position: Sitting; Cuff Location : Left Arm; Cuff Size: Standard 06-05-2019 11:03-0500 BP Systolic 124 mm[Hg] Susana Zamora LPN [facility] Work Phone: Comment on above: Patient Position: Sitting; Cuff Location : Left Arm; Cuff Size: Standard 06-05-2019 11:03-0500 BSA (Body Surface Area) 1.94 m2 Susana Zamora LPN Compre hensive [facility] Work Phone: 06-05-2019 11:03-0500 Height 165.1 cm Susana Zamora LPN [facility] Work Phone: 06-05-2019 11:03-0500 Pulse (Heart Rate) 81 /min Susana Riverensi [facility] Work Phone: Comment on above: Pattern: Regular 06-05-2019 11:03-0500 Pulse Oximetry 95 % Ramona Graham [facility] Work Phone: Comment on above: Room air 06-05-2019 11:03-0500 Respiratory Rate 16 /min Susana Zamora LPN [facility] Work Phone: Comment on above: Pattern: Unlabored 06-05-2019 11:03-0500 SaO2% (BldA) [Mass fraction] 95 % Susana Zamora LPN [facility]; [facility] Work Phone: Comment on above: Room air 02-24-2019 09:21-0400 BMI (Body Mass Index) 30.66 kg/m2 Mojgan Riverens [facility] Work Phone: 02-24-2019 09:21-0400 Body Temperature 96.5 [degF] Mojgan Moodsnap [facility] Work Phone: Comment on above: Method: Temporal 02-24-2019 09:21-0400 Body weight 83.58 kg Mojgan Moodsnap [facility] Work Phone: 02-24-2019 09:21-0400 BP Diastolic 82 mm[Hg] Mojgan Moodsnap [facility] Work Phone: Comment on above: Patient Position: Sitting; Cuff Location : Left Arm; Cuff Size: Standard 02-24-2019 09:21-0400 BP Systolic 118 mm[Hg] Mojgan Moodsnap [facility] Work Phone: Comment on above: Patient Position: Sitting; Cuff Location : Left Arm; Cuff Size: Standard 02-24-2019 09:21-0400 BSA (Body Surface Area) 1.91 m2 Mojgan Moodsnap Comprehe nsive [facility] Work Phone: 02-24-2019 09:21-0400 Height 165.1 cm [employer] [facility] Work Phone: 02-24-2019 09:21-0400 Pulse (Heart Rate) 64 /min Mojgan Hill [facility] Work Phone: Comment on above: Pattern: Regular 02-24-2019 09:21-0400 Pulse Oximetry 94 % Ramona Graham [facility] Work Phone: Comment on above: Room air 02-24-2019 09:21-0400 Respiratory Rate 18 /min Mojgan Hill [facility] Work Phone: Comment on above: Pattern: Unlabored 02-24-2019 09:21-0400 SaO2% (BldA) [Mass fraction] 94 % Mojgan Hill [facility]; [facility] Work Phone: Comment on above: Room air 05-06-2018 11:33-0400 BMI (Body Mass Index) 30.02 kg/m2 [facility] Work Phone: 05-06-2018 11:33-0400 Body Temperature 98 [degF] Terri Negron [facility] Work Phone: Comment on above: Method: Temporal 05-06-2018 11:33-0400 Body weight 81.82 kg Terri Negron [facility] Work Phone: 05-06-2018 11:33-0400 BP Diastolic 70 mm[Hg] Terri Negron [facility] Work Phone: Comment on above: Patient Position: Sitting; Cuff Location : Left Arm; Cuff Size: Standard 05-06-2018 11:33-0400 BP Systolic 108 mm[Hg] Terri Negron [facility] Work Phone: Comment on above: Patient Position: Sitting; Cuff Location : Left Arm; Cuff Size: Standard 05-06-2018 11:33-0400 BSA (Body Surface Area) 1.89 m2 Terri Rivere nsive [facility] Medicine Work Phone: 05-06-2018 11:33-0400 Height 165.1 cm eTrri Negron [facility] Work Phone: 05-06-2018 11:33-0400 Pulse (Heart Rate) 92 /min Terri Negron [facility] Work Phone: Comment on above: Pattern: Regular 05-06-2018 11:33-0400 Pulse Oximetry 97 % Ramona Graham [facility] Work Phone: Comment on above: Room air 05-06-2018 11:33-0400 Respiratory Rate 17 /min Terri Negron [facility] Work Phone: Comment on above: Pattern: Unlabored 05-06-2018 11:33-0400 SaO2% (BldA) [Mass fraction] 97 % Terri Negron [facility]; [facility] Work Phone: Comment on above: Room air 05-06-2018 11:33-0400 Weight 81.82 kg Ramona Graham [facility] Work Phone: 04-15-2018 14:08-0400 BMI (Body Mass Index) 30.02 kg/m2 [facility] Work Phone: 04-15-2018 14:08-0400 Body Temperature 98.5 [degF] Terri Negron [facility] Work Phone: Comment on above: Method: Temporal 04-15-2018 14:08-0400 Body weight 81.82 kg Terri Negron [facility] Work Phone: 04-15-2018 14:08-0400 BP Diastolic 84 mm[Hg] Terri Negron [facility] Work Phone: Comment on above: Patient Position: Sitting; Cuff Location : Left Arm; Cuff Size: Standard 04-15-2018 14:08-0400 BP Systolic 120 mm[Hg] Terri Negron [facility] Work Phone: Comment on above: Patient Position: Sitting; Cuff Location : Left Arm; Cuff Size: Standard 04-15-2018 14:08-0400 BSA (Body Surface Area) 1.89 m2 Terri Negron [facility] Work Phone: 04-15-2018 14:08-0400 Height 165.1 cm Terri Negron [facility] Work Phone: 04-15-2018 14:08-0400 Pulse (Heart Rate) 94 /min Terri Raolear [facility] Work Phone: Comment on above: Pattern: Regular 04-15-2018 14:08-0400 Pulse Oximetry 91 % Ramona Graham [facility] Work Phone: Comment on above: Room air 04-15-2018 14:08-0400 Respiratory Rate 16 /min Terri Raolear [facility] Work Phone: Comment on above: Pattern: Unlabored 04-15-2018 14:08-0400 SaO2% (BldA) [Mass fraction] 91 % Terri Jamil [facility]; [facility] Work Phone: Comment on above: Room air 04-15-2018 14:08-0400 Weight 81.82 kg Ramona Graham [facility] Work Phone: 02-03-2018 09:07-0400 BMI (Body Mass Index) 29.16 kg/m2 Ervin Dumont LPN [facility] Work Phone: 02-03-2018 09:07-0400 Body Temperature 97.2 [degF] Ervin Dumont LPN [facility] Work Phone: 02-03-2018 09:07-0400 Body weight 79.49 kg Ervin Dumont LPN [facility] Work Phone: 02-03-2018 09:07-0400 BP Diastolic 72 mm[Hg] Ervin Dumont LPN [facility] Work Phone: Comment on above: Patient Position: Sitting; Cuff Location : Left Arm; Cuff Size: Standard 02-03-2018 09:07-0400 BP Systolic 110 mm[Hg] Ervin Dumont LPN [facility] Work Phone: Comment on above: Patient Position: Sitting; Cuff Location : Left Arm; Cuff Size: Standard 02-03-2018 09:07-0400 BSA (Body Surface Area) 1.87 m2 Ervin Dumont LPN [facility] Work Phone: 02-03-2018 09:07-0400 Height 165.1 cm Ervin Dumont LPN [facility] Work Phone: 02-03-2018 09:07-0400 Pulse (Heart Rate) 82 /min Ervin Dumont LPN [facility] Work Phone: Comment on above: Pattern: Regular 02-03-2018 09:07-0400 Pulse Oximetry 96 % Ramona Graham [facility] Work Phone: Comment on above: Room air 02-03-2018 09:07-0400 Respiratory Rate 16 /min Ervin Dumont LPN [facility] Work Phone: Comment on above: Pattern: Unlabored 02-03-2018 09:07-0400 SaO2% (BldA) [Mass fraction] 96 % Ervin Dumont LPN [facility]; [facility] Work Phone: Comment on above: Room air 02-03-2018 09:07-0400 Weight 79.49 kg Ramona Graham [facility] Work Phone: 01-21-2018 10:42-0400 BMI (Body Mass Index) 28.79 kg/m2 Ervin Dumont LPN [facility] Work Phone: 01-21-2018 10:42-0400 Body Temperature 97 [degF] Ervin Dumont LPN [facility] Work Phone: 01-21-2018 10:42-0400 Body weight 78.49 kg Ervin Dumont LPN [facility] Work Phone: 01-21-2018 10:42-0400 BP Diastolic 76 mm[Hg] Ervin Dumont LPN [facility] Work Phone: Comment on above: Patient Position: Sitting; Cuff Location : Left Arm; Cuff Size: Standard 01-21-2018 10:42-0400 BP Systolic 118 mm[Hg] Ervin Dumont LPN [facility] Work Phone: Comment on above: Patient Position: Sitting; Cuff Location : Left Arm; Cuff Size: Standard 01-21-2018 10:42-0400 BSA (Body Surface Area) 1.86 m2 Ervin Dumont LPN [facility] Work Phone: 01-21-2018 10:42-0400 Height 165.1 cm Ervin Tim SAN [facility] Work Phone: 01-21-2018 10:42-0400 Pulse (Heart Rate) 94 /min Ervin Dumont JASWINDER [facility] Work Phone: Comment on above: Pattern: Regular 01-21-2018 10:42-0400 Pulse Oximetry 97 % Ramona Graham [facility] Work Phone: Comment on above: Room air 01-21-2018 10:42-0400 Respiratory Rate 16 /min Ervin Tim [facility] Work Phone: Comment on above: Pattern: Unlabored 01-21-2018 10:42-0400 SaO2% (BldA) [Mass fraction] 97 % Ervin Tim [facility]; [facility] Work Phone: Comment on above: Room air 01-21-2018 10:42-0400 Weight 78.49 kg Ramona Graham [facility] Work Phone: 03-01-2017 14:16-0400 BMI (Body Mass Index) 30.02 kg/m2 Domenica Magdarb [employer] [facility] Work Phone: 03-01-2017 14:16-0400 Body Temperature 97.4 [degF] Domenica Magdarb [employer] [facility] Work Phone: 03-01-2017 14:16-0400 Body weight 81.82 kg Domenica Slarb [employer] [facility] Work Phone: 03-01-2017 14:16-0400 BP Diastolic 76 mm[Hg] Domenica Slarb [employer] [facility] Work Phone: Comment on above: Patient Position: Sitting; Cuff Location : Left Arm; Cuff Size: Standard 03-01-2017 14:16-0400 BP Systolic 118 mm[Hg] Domenica Slarb [employer] [facility] Work Phone: Comment on above: Patient Position: Sitting; Cuff Location : Left Arm; Cuff Size: Standard 03-01-2017 14:16-0400 BSA (Body Surface Area) 1.89 m2 Domenica Thomas [employer] [facility] Work Phone: 03-01-2017 14:16-0400 Height 165.1 cm Domenica Thomas [employer] [facility] Work Phone: 03-01-2017 14:16-0400 Pulse (Heart Rate) 97 /min Domenica Thomas [employer] [facility] Work Phone: Comment on above: Pattern: Regular 03-01-2017 14:16-0400 Pulse Oximetry 96 % Ramona Graham [facility] Work Phone: Comment on above: Room air 03-01-2017 14:16-0400 Respiratory Rate 16 /min Domenica Thomas [employer] [facility] Work Phone: Comment on above: Pattern: Unlabored 03-01-2017 14:16-0400 SaO2% (BldA) [Mass fraction] 96 % Domenica Manrb [employer] [facility]; [facility] Work Phone: Comment on above: Room air 03-01-2017 14:16-0400 Weight 81.82 kg Ramona Graham [facility] Work Phone: 12-08-2016 14:46-0400 BMI (Body Mass Index) 30.29 kg/m2 Domneica Manrb [employer] [facility] Work Phone: 12-08-2016 14:46-0400 Body Temperature 97.4 [degF] Domenica Magdarb [employer] [facility] Work Phone: 12-08-2016 14:46-0400 Body weight 82.56 kg Domenica Magdarb [employer] [facility] Work Phone: 12-08-2016 14:46-0400 BP Diastolic 62 mm[Hg] Domenica Slarb [employer] [facility] Work Phone: Comment on above: Patient Position: Sitting; Cuff Location : Left Arm; Cuff Size: Standard 12-08-2016 14:46-0400 BP Systolic 108 mm[Hg] Domenica Slarb [employer] [facility] Work Phone: Comment on above: Patient Position: Sitting; Cuff Location : Left Arm; Cuff Size: Standard 12-08-2016 14:46-0400 BSA (Body Surface Area) 1.9 m2 Domenica Thomas LPN [facility] Work Phone: 12-08-2016 14:46-0400 Height 165.1 cm Domenica Thomas [employer] [facility] Work Phone: 12-08-2016 14:46-0400 Pulse (Heart Rate) 89 /min Domenica Thomas LPN [facility] Work Phone: Comment on above: Pattern: Regular 12-08-2016 14:46-0400 Pulse Oximetry 97 % Ramona Graham [facility] Work Phone: Comment on above: Room air 12-08-2016 14:46-0400 Respiratory Rate 16 /min Domenica Thomas [employer] [facility] Work Phone: Comment on above: Pattern: Unlabored 12-08-2016 14:46-0400 SaO2% (BldA) [Mass fraction] 97 % Domenica Thomas [employer] [facility]; [facility] Work Phone: Comment on above: Room air 12-08-2016 14:46-0400 Weight 82.56 kg Ramona Graham [facility] Work Phone: 03-03-2016 14:11-0400 BMI (Body Mass Index) 31.12 kg/m2 Domenica Manrb [employer] [facility] Work Phone: 03-03-2016 14:11-0400 Body Temperature 97.9 [degF] Domenica Manrb [employer] [facility] Work Phone: 03-03-2016 14:11-0400 Body weight 84.82 kg Domenica Manrb [employer] [facility] Work Phone: 03-03-2016 14:11-0400 BP Diastolic 78 mm[Hg] Domenica Magdarb [employer] [facility] Work Phone: Comment on above: Patient Position: Sitting; Cuff Location : Left Arm; Cuff Size: Standard 03-03-2016 14:11-0400 BP Systolic 116 mm[Hg] Domenica Thomas LPN [facility] Work Phone: Comment on above: Patient Position: Sitting; Cuff Location : Left Arm; Cuff Size: Standard 03-03-2016 14:110400 BSA (Body Surface Area) 1.92 m2 Domenica Thomas LPN [facility] Work Phone: 03-03-2016 14:11-0400 Height 165.1 cm Domenica Thomas LPN [facility] Work Phone: 03-03-2016 14:11-0400 Pulse (Heart Rate) 93 /min Domenica Thomas LPN [facility] Work Phone: Comment on above: Pattern: Regular 03-03-2016 14:11-0400 Pulse Oximetry 99 % Ramona Graham [facility] Work Phone: Comment on above: Room air 03-03-2016 14:11-0400 Respiratory Rate 17 /min Domenica Thomas LPN [facility] Work Phone: Comment on above: Pattern: Unlabored 03-03-2016 14:11-0400 SaO2% (BldA) [Mass fraction] 99 % Domenica Thomas [employer] [facility]; [facility] Work Phone: Comment on above: Room air 03-03-2016 14:11-0400 Weight 84.82 kg Ramona Graham [facility] Work Phone: 03-06-2015 09:59-0400 BMI (Body Mass Index) 30.45 kg/m2 Elvira Riveren [facility] Work Phone: 03-06-2015 09:59-0400 Body Temperature 98.6 [degF] Elvira Valencia [facility] Work Phone: Comment on above: Method: Temporal 03-06-2015 09:59-0400 Body weight 83.01 kg Elvira Valencia [facility] Work Phone: 03-06-2015 09:59-0400 BP Diastolic 80 mm[Hg] Elvira Valencia [facility] Work Phone: Comment on above: Patient Position: Sitting; Cuff Location : Left Arm; Cuff Size: Standard 03-06-2015 09:59-0400 BP Systolic 116 mm[Hg] Elvira Valencia [facility] Work Phone: Comment on above: Patient Position: Sitting; Cuff Location : Left Arm; Cuff Size: Standard 03-06-2015 09:59-0400 BSA (Body Surface Area) 1.9 m2 Elvira Valencia [facility] Work Phone: 03-06-2015 09:59-0400 Height 165.1 cm Elvira Laymayolucia [facility] Work Phone: 03-06-2015 09:59-0400 Pulse (Heart Rate) 84 /min Elvira Valencia [facility] Work Phone: Comment on above: Pattern: Regular 03-06-2015 09:59-0400 Respiratory Rate 16 /min Elvira Núñezlucia [facility] Work Phone: Comment on above: Pattern: Unlabored 03-06-2015 09:59-0400 Weight 83.01 kg Ramona Graham [facility] Work Phone: 03-30-2014 09:25-0400 BMI (Body Mass Index) 29.62 kg/m2 Elvira Laymayolucia Miguel Angel [facility] Work Phone: 03-30-2014 09:25-0400 Body Temperature 97.5 [degF] Elvira Laylaura [facility] Work Phone: 03-30-2014 09:25-0400 Body weight 80.74 kg Elvira Laylaura [facility] Work Phone: 03-30-2014 09:25-0400 BP Diastolic 78 mm[Hg] Elvira Valencia [facility] Work Phone: Comment on above: Patient Position: Sitting; Cuff Location : Left Arm; Cuff Size: Standard 03-30-2014 09:25-0400 BP Systolic 100 mm[Hg] Elvira Valencia [facility] Work Phone: Comment on above: Patient Position: Sitting; Cuff Location : Left Arm; Cuff Size: Standard 03-30-2014 09:25-0400 BSA (Body Surface Area) 1.88 m2 Elvira [place] [facility] Work Phone: 03-30-2014 09:25-0400 Height 165.1 cm Elvira Núñezlucia [facility] Work Phone: 03-30-2014 09:25-0400 Pulse (Heart Rate) 74 /min [facility] Work Phone: Comment on above: Pattern: Regular 03-30-2014 09:25-0400 Respiratory Rate 16 /min Elvira Valencia [facility] Work Phone: Comment on above: Pattern: Unlabored 03-30-2014 09:25-0400 Weight 80.74 kg Ramona Graham [facility] Work Phone: 02-02-2014 08:50-0400 BMI (Body Mass Index) 30.29 kg/m2 Elvira Valencia Miguel Angel [facility] Work Phone: 02-02-2014 08:50-0400 Body Temperature 96.6 [degF] Elvira Núñezlucia [facility] Work Phone: 02-02-2014 08:50-0400 Body weight 82.56 kg Elvira Laylaura [facility] Work Phone: 02-02-2014 08:50-0400 BP Diastolic 70 mm[Hg] Elvira Núñezlucia [facility] Work Phone: Comment on above: Patient Position: Sitting; Cuff Location : Left Arm; Cuff Size: Large 02-02-2014 08:50-0400 BP Systolic 110 mm[Hg] Elvira Valencia [facility] Work Phone: Comment on above: Patient Position: Sitting; Cuff Location : Left Arm; Cuff Size: Large 02-02-2014 08:50-0400 BSA (Body Surface Area) 1.9 m2 Elvira Valencia [facility] Work Phone: 02-02-2014 08:50-0400 Height 165.1 cm Elvira Valencia [facility] Work Phone: 02-02-2014 08:50-0400 Pulse (Heart Rate) 76 /min Elvira Valencia [facility] Work Phone: Comment on above: Pattern: Regular 02-02-2014 08:50-0400 Respiratory Rate 16 /min Elvira Valencia [facility] Work Phone: Comment on above: Pattern: Unlabored 02-02-2014 08:50-0400 Weight 82.56 kg Ramona Graham [facility] Work Phone: 10-27-2013 13:27-0400 BMI (Body Mass Index) 30.29 kg/m2 Elvira Valencia Miguel Angel [facility] Work Phone: 10-27-2013 13:27-0400 Body Temperature 98.1 [degF] Elvira Valencia [facility] Work Phone: 10-27-2013 13:27-0400 Body weight 82.56 kg Elvira Valencia [facility] Work Phone: 10-27-2013 13:27-0400 BP Diastolic 82 mm[Hg] Elvira Valencia [facility] Work Phone: Comment on above: Patient Position: Sitting; Cuff Location : Left Arm; Cuff Size: Large 10-27-2013 13:27-0400 BP Systolic 116 mm[Hg] Elvira Valencia [facility] Work Phone: Comment on above: Patient Position: Sitting; Cuff Location : Left Arm; Cuff Size: Large 10-27-2013 13:27-0400 BSA (Body Surface Area) 1.9 m2 Elvira Valencia [facility] Work Phone: 10-27-2013 13:27-0400 Height 165.1 cm Elviradaysi Valencia [facility] Work Phone: 10-27-2013 13:27-0400 Pulse (Heart Rate) 96 /min Elvira Valencia [facility] Work Phone: Comment on above: Pattern: Regular 10-27-2013 13:27-0400 Respiratory Rate 16 /min Elvira Valencia [facility] Work Phone: Comment on above: Pattern: Unlabored 10-27-2013 13:27-0400 Weight 82.56 kg Ramona Graham [facility] Work Phone: 07-03-2013 16:24-0500 BMI (Body Mass Index) 30.12 kg/m2 Elvira Valencia Miguel Angel [facility] Work Phone: 07-03-2013 16:24-0500 Body Temperature 96.9 [degF] Elvira Valencia [facility] Work Phone: 07-03-2013 16:24-0500 Body weight 82.1 kg Elvira Valencia [facility] Work Phone: 07-03-2013 16:24-0500 BP Diastolic 78 mm[Hg] Elvira Valencia [facility] Work Phone: Comment on above: Patient Position: Sitting; Cuff Location : Left Arm; Cuff Size: Large 07-03-2013 16:24-0500 BP Systolic 110 mm[Hg] Elvira Valencia [facility] Work Phone: Comment on above: Patient Position: Sitting; Cuff Location : Left Arm; Cuff Size: Large 07-03-2013 16:24-0500 BSA (Body Surface Area) 1.9 m2 Elvira [place] [facility] Work Phone: 07-03-2013 16:24-0500 Height 165.1 cm Elvira Valencia [facility] Work Phone: 07-03-2013 16:24-0500 Pulse (Heart Rate) 102 /min Elvira Valencia [facility] Work Phone: Comment on above: Pattern: Regular 07-03-2013 16:24-0500 Respiratory Rate 16 /min Elvira Erik [facility] Work Phone: Comment on above: Pattern: Unlabored 07-03-2013 16:24-0500 Weight 82.1 kg Ramona Graham [facility] Work Phone: 03-29-2013 08:55-0400 BMI (Body Mass Index) 29.38 kg/m2 Mayuri Gamino LPN [facility] Work Phone: 03-29-2013 08:55-0400 Body Temperature 98 [degF] Mayuri Gamino LPN [facility] Work Phone: Comment on above: Method: Oral 03-29-2013 08:55-0400 Body weight 80.09 kg Mayuri Gamino LPN [facility] Work Phone: 03-29-2013 08:55-0400 BP Diastolic 74 mm[Hg] Mayuri Gamino LPN [facility] Work Phone: Comment on above: Patient Position: Sitting; Cuff Location : Left Arm; Cuff Size: Standard 03-29-2013 08:55-0400 BP Systolic 126 mm[Hg] Mayuri Gamino LPN [facility] Work Phone: Comment on above: Patient Position: Sitting; Cuff Location : Left Arm; Cuff Size: Standard 03-29-2013 08:55-0400 BSA (Body Surface Area) 1.88 m2 Mayuri Gamino LPN [facility] Work Phone: 03-29-2013 08:55-0400 Height 165.1 cm Mayuri Gamino LPN [facility] Work Phone: 03-29-2013 08:55-0400 Pulse (Heart Rate) 72 /min Mayuri Gamino LPN [facility] Work Phone: Comment on above: Pattern: Regular 03-29-2013 08:55-0400 Pulse Oximetry 98 % Ramona Graham [facility] Work Phone: Comment on above: Room air 03-29-2013 08:55-0400 Respiratory Rate 16 /min Mayuri Gamino LPN [facility] Work Phone: 03-29-2013 08:55-0400 SaO2% (BldA) [Mass fraction] 98 % Mayuri Gamino LPN [facility]; [facility] Work Phone: Comment on above: Room air 03-29-2013 08:55-0400 Weight 80.09 kg Ramona Graham [facility] Work Phone: 03-15-2013 09:16-0400 BMI (Body Mass Index) 29.38 kg/m2 Mayuri Gamino LPN [facility] Work Phone: 03-15-2013 09:16-0400 Body Temperature 98.1 [degF] Mayuri Gamino LPN [facility] Work Phone: Comment on above: Method: Oral 03-15-2013 09:16-0400 Body weight 80.09 kg Mayuri Gamino LPN [facility] Work Phone: 03-15-2013 09:16-0400 BP Diastolic 70 mm[Hg] Mayuri Gamino LPN [facility] Work Phone: Comment on above: Patient Position: Sitting; Cuff Location : Left Arm; Cuff Size: Standard 03-15-2013 09:16-0400 BP Systolic 112 mm[Hg] Mayuri Gamino LPN [facility] Work Phone: Comment on above: Patient Position: Sitting; Cuff Location : Left Arm; Cuff Size: Standard 03-15-2013 09:16-0400 BSA (Body Surface Area) 1.88 m2 Mayuri Gamino LPN [facility] Work Phone: 03-15-2013 09:16-0400 Height 165.1 cm Mayuri Gamino LPN [facility] Work Phone: 03-15-2013 09:16-0400 Pulse (Heart Rate) 92 /min Mayuri Gamino LPN [facility] Work Phone: Comment on above: Pattern: Regular 03-15-2013 09:16-0400 Pulse Oximetry 98 % Ramona Graham [facility] Work Phone: Comment on above: Room air 03-15-2013 09:16-0400 Respiratory Rate 16 /min Mayuri Gamino LPN [facility] Work Phone: 03-15-2013 09:16-0400 SaO2% (BldA) [Mass fraction] 98 % Mayuri Gamino [employer] [facility]; [facility] Work Phone: Comment on above: Room air 03-15-2013 09:16-0400 Weight 80.09 kg Ramona Graham [facility] Work Phone: 01-09-2013 15:50-0400 BMI (Body Mass Index) 31.15 kg/m2 Mayuri Gamino LPN [facility] Work Phone: 01-09-2013 15:50-0400 Body Temperature 98 [degF] Mayuri Gamino [employer] [facility] Work Phone: Comment on above: Method: Oral 01-09-2013 15:50-0400 Body weight 84.91 kg Mayuri Gamino [employer] [facility] Work Phone: 01-09-2013 15:50-0400 BP Diastolic 74 mm[Hg] Mayuri Gamino LPN [facility] Work Phone: Comment on above: Patient Position: Sitting; Cuff Location : Left Arm; Cuff Size: Standard 01-09-2013 15:50-0400 BP Systolic 118 mm[Hg] Mayuri Gamino LPN [facility] Work Phone: Comment on above: Patient Position: Sitting; Cuff Location : Left Arm; Cuff Size: Standard 01-09-2013 15:50-0400 BSA (Body Surface Area) 1.92 m2 Mayuri Gamino [employer] Work Phone: 01-09-2013 15:50-0400 Height 165.1 cm Mayuri Gamino [employer] [facility] Work Phone: 01-09-2013 15:50-0400 Pulse (Heart Rate) 90 /min Mayuri Gamino LPN [facility] Work Phone: Comment on above: Pattern: Regular 01-09-2013 15:50-0400 Pulse Oximetry 96 % Ramona Graham [facility] Work Phone: Comment on above: Room air 01-09-2013 15:50-0400 Respiratory Rate 16 /min Mayuri Gamino LPN [facility] Work Phone: 01-09-2013 15:50-0400 SaO2% (BldA) [Mass fraction] 96 % Mayuri Gamino LPN [facility]; [facility] Work Phone: Comment on above: Room air 01-09-2013 15:50-0400 Weight 84.91 kg Ramona Graham [facility] Work Phone: 09-30-2012 09:51-0400 BMI (Body Mass Index) 30.31 kg/m2 Mayuri Gamino LPN [facility] Work Phone: 09-30-2012 09:51-0400 Body Temperature 98.3 [degF] Mayuri Gamino LPN [facility] Work Phone: Comment on above: Method: Oral 09-30-2012 09:51-0400 Body weight 82.61 kg Mayuri Gamino LPN [facility] Work Phone: 09-30-2012 09:51-0400 BP Diastolic 80 mm[Hg] Mayuri Gamino LPN [facility] Work Phone: Comment on above: Patient Position: Sitting; Cuff Location : Left Arm; Cuff Size: Standard 09-30-2012 09:51-0400 BP Systolic 120 mm[Hg] Mayuri Gamino LPN [facility] Work Phone: Comment on above: Patient Position: Sitting; Cuff Location : Left Arm; Cuff Size: Standard 09-30-2012 09:51-0400 BSA (Body Surface Area) 1.9 m2 Mayuri Gamino LPN [facility] Work Phone: 09-30-2012 09:51-0400 Height 165.1 cm Mayuri Gamino LPN [facility] Work Phone: 09-30-2012 09:51-0400 Pulse (Heart Rate) 82 /min Mayuri Gamino LPN [facility] Work Phone: Comment on above: Pattern: Regular 09-30-2012 09:51-0400 Pulse Oximetry 98 % Ramona Graham [facility] Work Phone: Comment on above: Room air 09-30-2012 09:51-0400 Respiratory Rate 16 /min Mayuri Gamino LPN [facility] Work Phone: 09-30-2012 09:51-0400 SaO2% (BldA) [Mass fraction] 98 % Mayuri Gamino LPN [facility]; [facility] Work Phone: Comment on above: Room air 09-30-2012 09:51-0400 Weight 82.61 kg Ramona Graham [facility] Work Phone: 07-08-2012 09:38-0500 BMI (Body Mass Index) 29.98 kg/m2 Mayuri Gamino LPN [facility] Work Phone: 07-08-2012 09:38-0500 Body Temperature 98.2 [degF] Mayuri Gamino LPN [facility] Work Phone: Comment on above: Method: Oral 07-08-2012 09:38-0500 Body weight 81.73 kg Mayuri Gamino [facility]PN [facility] Work Phone: 07-08-2012 09:38-0500 BP Diastolic 70 mm[Hg] Mayuri Gamino LPN [facility] Work Phone: Comment on above: Patient Position: Sitting; Cuff Location : Left Arm; Cuff Size: Standard 07-08-2012 09:38-0500 BP Systolic 108 mm[Hg] Mayuri Gamino LPN [facility] Work Phone: Comment on above: Patient Position: Sitting; Cuff Location : Left Arm; Cuff Size: Standard 07-08-2012 09:38-0500 BSA (Body Surface Area) 1.89 m2 Mayuri Gamino LPN [facility] Work Phone: 07-08-2012 09:38-0500 Height 165.1 cm Mayuri Gamino LPN [facility] Work Phone: 07-08-2012 09:38-0500 Pulse (Heart Rate) 80 /min Mayuri Gamino LPN [facility] Work Phone: Comment on above: Pattern: Regular 07-08-2012 09:38-0500 Respiratory Rate 18 /min Mayuri Gamino LPN [facility] Work Phone: 07-08-2012 09:38-0500 Weight 81.73 kg Ramona Graham [facility] Work Phone: 05-27-2012 09:38-0500 BMI (Body Mass Index) 29.98 kg/m2 Mayuri Gamino LPN [facility] Work Phone: 05-27-2012 09:38-0500 Body Temperature 98.2 [degF] Mayuri Gamino LPN [facility] Work Phone: Comment on above: Method: Oral 05-27-2012 09:38-0500 Body weight 81.73 kg Mayuri Gamino LPN [facility] Work Phone: 05-27-2012 09:38-0500 BP Diastolic 80 mm[Hg] Mayuri Gamino LPN [facility] Work Phone: Comment on above: Patient Position: Sitting; Cuff Location : Left Arm; Cuff Size: Standard 05-27-2012 09:38-0500 BP Systolic 124 mm[Hg] Mayuri Gamino LPN [facility] Work Phone: Comment on above: Patient Position: Sitting; Cuff Location : Left Arm; Cuff Size: Standard 05-27-2012 09:38-0500 BSA (Body Surface Area) 1.89 m2 Mayuri Gamino LPN [facility] Work Phone: 05-27-2012 09:38-0500 Height 165.1 cm Mayuri Gamino LPN [facility] Work Phone: 05-27-2012 09:38-0500 Pulse (Heart Rate) 76 /min Mayuri Gamino [facility]PN [facility] Work Phone: Comment on above: Pattern: Regular 05-27-2012 09:38-0500 Respiratory Rate 16 /min Mayuri Gamino LPN [facility] Work Phone: 05-27-2012 09:38-0500 Weight 81.73 kg Ramona Graham [facility] Work Phone: 04-29-2012 10:10-0400 BMI (Body Mass Index) 29.98 kg/m2 Mayuri Gamino LPN [facility] Work Phone: 04-29-2012 10:10-0400 Body Temperature 99 [degF] Mayuri Gamino LPN [facility] Work Phone: Comment on above: Method: Oral 04-29-2012 10:100400 Body weight 81.73 kg Mayuri Gamino [facility]PN [facility] Work Phone: 04-29-2012 10:10-0400 BP Diastolic 68 mm[Hg] Mayuri Gamino LPN [facility] Work Phone: Comment on above: Patient Position: Sitting; Cuff Location : Left Arm; Cuff Size: Standard 04-29-2012 10:10-0400 BP Systolic 102 mm[Hg] Mayuri Gamino LPN [facility] Work Phone: Comment on above: Patient Position: Sitting; Cuff Location : Left Arm; Cuff Size: Standard 04-29-2012 10:10-0400 BSA (Body Surface Area) 1.89 m2 Mayuri Gamino [facility]PN [facility] Work Phone: 04-29-2012 10:10-0400 Height 165.1 cm Mayuri Gamino [facility]PN [facility] Work Phone: 04-29-2012 10:10-0400 Pulse (Heart Rate) 82 /min Mayuri Gamino LPN [facility] Work Phone: Comment on above: Pattern: Regular 04-29-2012 10:10-0400 Pulse Oximetry 98 % Ramona Graham [facility] Work Phone: Comment on above: Room air 04-29-2012 10:10-0400 Respiratory Rate 16 /min Mayuri Gamino LPN [facility] Work Phone: Comment on above: Pattern: Unlabored 04-29-2012 10:10-0400 SaO2% (BldA) [Mass fraction] 98 % Mayuri Gamino LPN [facility]; [facility] Work Phone: Comment on above: Room air 04-29-2012 10:10-0400 Weight 81.73 kg Ramona Graham [facility] Work Phone: 04-15-2012 10:42-0400 BMI (Body Mass Index) 29.98 kg/m2 Mayuri Gamino [facility]PN [facility] Work Phone: 04-15-2012 10:42-0400 Body Temperature 98.8 [degF] Mayuri Gamino LPN [facility] Work Phone: Comment on above: Method: Oral 04-15-2012 10:42-0400 Body weight 81.73 kg Mayuri Gamino [facility]PN [facility] Work Phone: 04-15-2012 10:42-0400 BP Diastolic 82 mm[Hg] Mayuri Gamino LPN [facility] Work Phone: Comment on above: Patient Position: Sitting; Cuff Location : Left Arm; Cuff Size: Standard 04-15-2012 10:42-0400 BP Systolic 128 mm[Hg] Mayuri Gamino LPN [facility] Work Phone: Comment on above: Patient Position: Sitting; Cuff Location : Left Arm; Cuff Size: Standard 04-15-2012 10:42-0400 BSA (Body Surface Area) 1.89 m2 Mayuri Gamino [facility]PN [facility] Work Phone: 04-15-2012 10:42-0400 Height 165.1 cm Mayuri Gamino [facility]PN [facility] Work Phone: 04-15-2012 10:42-0400 Pulse (Heart Rate) 78 /min Mayuri Gamino LPN [facility] Work Phone: Comment on above: Pattern: Regular 04-15-2012 10:42-0400 Pulse Oximetry 98 % Ramona Graham [facility] Work Phone: Comment on above: Room air 04-15-2012 10:42-0400 Respiratory Rate 16 /min Mayuri Gamino LPN [facility] Work Phone: 04-15-2012 10:42-0400 SaO2% (BldA) [Mass fraction] 98 % Mayuri Gamino [facility]PN [facility]; [facility] Work Phone: Comment on above: Room air 04-15-2012 10:42-0400 Weight 81.73 kg Ramona Graham [facility] Work Phone: 04-13-2012 15:50-0400 BMI (Body Mass Index) 30.54 kg/m2 Mayuri Gamino LPN [facility] Work Phone: 04-13-2012 15:50-0400 Body Temperature 98.2 [degF] Mayuri Gamino LPN [facility] Work Phone: Comment on above: Method: Oral 04-13-2012 15:50-0400 Body weight 83.24 kg Mayuri Gamino LPN [facility] Work Phone: 04-13-2012 15:50-0400 BP Diastolic 90 mm[Hg] Mayuri Gamino LPN [facility] Work Phone: Comment on above: Patient Position: Sitting; Cuff Location : Left Arm; Cuff Size: Standard 04-13-2012 15:50-0400 BP Systolic 152 mm[Hg] Mayuri Gamino LPN [facility] Work Phone: Comment on above: Patient Position: Sitting; Cuff Location : Left Arm; Cuff Size: Standard 04-13-2012 15:50-0400 BSA (Body Surface Area) 1.91 m2 Mayuri Gamino [facility]PN [facility] Work Phone: 04-13-2012 15:50-0400 Height 165.1 cm Mayuri Gamino [facility]PN [facility] Work Phone: 04-13-2012 15:50-0400 Pulse (Heart Rate) 94 /min Mayuri Gamino LPN [facility] Work Phone: Comment on above: Pattern: Regular 04-13-2012 15:50-0400 Pulse Oximetry 97 % Ramona Graham [facility] Work Phone: Comment on above: Room air 04-13-2012 15:50-0400 Respiratory Rate 17 /min Mayuri Gamino [facility]PN [facility] Work Phone: Comment on above: Pattern: Unlabored 04-13-2012 15:50-0400 SaO2% (BldA) [Mass fraction] 97 % Mayuri Gamino [facility]PN [facility]; [facility] Work Phone: Comment on above: Room air 04-13-2012 15:50-0400 Weight 83.24 kg Ramona Graham [facility] Work Phone: Encounters Encounter Date Encounter Type Care Provider Facility Start: 12-27-2024 End: 12-27-2024 Patient encounter procedure Nancy Pérez PARTS SALES ADVISOR-C -[facility] Work Phone: Start: 12-27-2024 End: 12-27-2024 ambulatory Asa Alba PARTS SALES ADVISOR-C Work Phone: [facility] Work Phone: Start: 12-21-2024 End: 12-21-[address] Ronald Mcfarlane MD -[facility] Work Phone: Start: 12-21-2024 End: 12-21-2024 ambulatory Asa Alba Facility:[facility] Start: 10-18-2024 End: 10-18-2024 Patient encounter procedure Judy Hendricks PARTS SALES ADVISOR-C -[facility] Work Phone: Start: 10-18-2024 End: 10-18-2024 ambulatory Asa Alba Facility:[facility] Start: 10-12-2024 End: 10-12-2024 ambulatory Asa Alba PARTS SALES ADVISOR-C Work Phone: [facility] Work Phone: Start: 10-12-2024 End: 10-12-2024 Patient encounter procedure Judy Hendricks PARTS SALES ADVISOR-C -Ultrasound, [facility] Work Phone: Start: 10-12-2024 End: 10-12-2024 ambulatory Asa Alba Facility:[facility] Start: 04-13-2024 End: 04-13-2024 ambulatory Asa Alba Facility:[facility] Start: 04-13-2024 End: 04-13-2024 ambulatory Asa Alba Facility:[facility] Start: 03-16-2024 End: 03-16-2024 ambulatory Asa Alba Facility:[facility] Start: 02-21-2024 ambulatory Asa Alba Facility :[facility] Start: 04-13-2023 End: 04-13-2023 Annotation/Addendum Asa Alba CNP Work Phone: [facility] Start: 03-04-2023 End: 03-04-2023 ambulatory [facility] Work Phone: Start: 03-04-2023 End: 03-04-2023 Patient encounter procedure [facility]-Outpatient Bone Densitometry Work Phone: Start: 02-19-2023 End: 03-02-2023 Office consultation new/estab patient 40 min Asa Alba CNP Work Phone: [facility] Start: 02-19-2023 End: 03-02-2023 Patient encounter status Asa Alba CNP Work Phone: [facility]; [facility] Work Phone: Start: 02-19-2023 Patient encounter status Rosalee Alba CNP Work Phone: [facility] Start: 02-19-2023 Review Asa Alba CNP Work Phone: [facility] Start: 02-16-2023 Registered Referred [facility]-Employee Health Start: 11-16-2022 End: 12-16-2022 ambulatory PARTS SALES ADVISOR-C Asa Alba Work Phone: [facility] Work Phone: Start: 11-16-2022 End: 12-16-2022 Discharged Recurring PARTS SALES ADVISOR-C Asajuan pablo Alba Work Phone: [facility]-Cardiac Rehab Start: 11-09-2022 End: 11-15-2022 ambulatory PARTS SALES ADVISOR-C Asajuan pablo Alba Work Phone: [facility] Work Phone: Start: 11-09-2022 End: 11-15-2022 Discharged Recurring PARTS SALES ADVISOR-C Asajuan pablo Alba Work Phone: [facility]-Cardiac Rehab Start: 10-23-2022 End: 10-23-2022 Patient encounter procedure PARTS SALES ADVISOR-C Asajuan pablo Alba Work Phone: [facility] Start: 10-16-2022 End: 10-16-2022 ambulatory PARTS SALES ADVISOR-C Asajuan pablo Alba Work Phone: [facility] Work Phone: Start: 10-16-2022 End: 10-16-2022 Discharged Recurring PARTS SALES ADVISOR-C Asajuan pablo Alba Work Phone: [facility]-Cardiac Rehab Start: 10-14-2022 End: 10-14-2022 Patient encounter procedure PARTS SALES ADVISOR-C Asajuan pablo Alba Work Phone: [facility]-Laboratory Start: 10-08-2022 End: 10-08-2022 Phone Encounter Asa Parth SCUBA INSTRUCTOR Work Phone: [facility] Start: 10-07-2022 ambulatory Esha [facility] Start: 09-23-2022 Registered Recurring PARTS SALES ADVISOR-C Yasemin Alba Work Phone: [facility]-Cardiac Rehab Start: 09-22-2022 Non-patient / Non-visit PARTS SALES ADVISOR-C Craig Alba Work Phone: [facility] Start: 09-22-2022 End: 09-22-2022 ambulatory PARTS SALES ADVISOR-C Asa Parth Work Phone: [facility] Work Phone: Start: 09-22-2022 End: 09-22-2022 Patient encounter procedure PARTS SALES ADVISOR-C Asa Parth Work Phone: [facility]-Cardiovascular Services Start: 09-14-2022 End: 09-15-2022 ambulatory PARTS SALES ADVISOR-C Asa Downsam Work Phone: [facility] Work Phone: Start: 09-14-2022 End: 09-15-2022 Discharged Recurring PARTS SALES ADVISOR-C Asa Alba Work Phone: [facility]-Cardiac Rehab Start: 09-04-2022 Registered Recurring PARTS SALES ADVISOR-C Yasemin Alba Work Phone: [facility]-Cardiac Rehab Start: 08-31-2022 Registered Recurring PARTS SALES ADVISOR-C Yasemin Alba Work Phone: [facility]-Cardiac Rehab Start: 08-28-2022 End: 08-28-2022 ambulatory PARTS SALES ADVISOR-C Asajuan pablo Alba Work Phone: [facility] Work Phone: Start: 08-28-2022 End: 08-28-2022 Patient encounter procedure PARTS SALES ADVISOR-C Asa Downsam Work Phone: [facility]-Laboratory Start: 08-28-2022 End: 08-28-2022 Office outpatient visit 15 minutes Asa Alba CNP Work Phone: [facility] Start: 08-26-2022 Registered Recurring PARTS SALES ADVISOR-C Yasemin Alba Work Phone: [facility]-Cardiac Rehab Start: 08-26-2022 ambulatory Asa Alba CNP [facility] Start: 08-20-2022 End: 08-20-2022 ambulatory PARTS SALES ADVISOR-C Asa Alba Work Phone: [facility] Work Phone: Start: 08-20-2022 End: 08-20-2022 Patient encounter procedure PARTS SALES ADVISOR-C Asajuan pablo Alba Work Phone: [facility]-Laboratory Start: 08-17-2022 End: 08-17-2022 Patient encounter procedure PARTS SALES ADVISOR-Craig Turkyn Parth Work Phone: [facility]-Cardiac Rehab Start: 08-11-2022 End: 08-11-2022 ambulatory PARTS SALES ADVISOR-Craig Alba Work Phone: [facility] Work Phone: Start: 08-11-2022 End: 08-11-[address] [facility] Start: 08-04-2022 End: 08-04-[address] Jaimee Jarrett Work Phone: [facility] Work Phone: Start: 08-04-2022 End: 08-04-[address] Jaimee Jarrett Work Phone: [facility] Start: 08-04-2022 End: 08-04-[address] Jaimee Jarrett Work Phone: [facility] Start: 07-08-2022 ambulatory Chayito Cunningham Pulmon[facility] y Medicine Start: 07-07-2022 End: 07-08-2022 ambulatory JACOB FAROOQ Facility:[facility] Start: 07-07-2022 End: 07-07-2022 Patient encounter procedure Trace Ro APRN.CNP Work Phone: Cardiothoracic Comment on above: S/P AVR (aortic valv e replacement) (Primary Dx) Start: 07-07-2022 End: 07-07-2022 Subsequent hospital visit by physician Xr Chest Main J1 Work Phone: Radiology Comment on above: Surgery follow-up [Z 09] Start: 07-01-2022 ambulatory Chayito Cunningham [facility] Start: 07-01-2022 Telephone encounter Emelina iKrby RN NOC Comment on above: Follow Up Phone Call (RC all clear ) Start: 06-30-2022 ambulatory Vianey Calvert APRN.SCUBA INSTRUCTOR Work Phone: Pulmonary Medicine Start: 06-26-2022 End: 06-30-2022 Evaluation and management of inpatient JACOB FAROOQ Facility:[facility] Start: 06-25-2022 End: 06-25-2022 Orders Only Ranjit Roque MD Work Phone: Cardiology Comment on above: Aortic valve disorde r (Primary Dx) Disorder of artery o r arteriole (HCC); Pre-operative cardiovascular examination; Aortic valve disorder Encounter for preope rative anesthesiology assessment for cardiac surgery (Primary Dx) Pre-op exam (Primary Dx) Patient Education Start: 06-25-2022 End: 06-25-2022 Patient encounter status Jacob Farooq MD Work Phone: [facility] Start: 06-25-2022 End: 06-25-2022 Admission to same day surgery center Anesthesia Clearance Work Phone: Cardiothoracic Start: 06-25-2022 End: 06-25-2022 Preprocedural examination done [facility] Work Phone: Cardiothoracic Start: 06-24-2022 End: 06-25-2022 ambulatory JACOB FAROOQ Facility:[facility] Start: 06-24-2022 End: 06-25-2022 ambulatory ASA PARTH Facility:[facility] Start: 06-24-2022 End: 06-24-2022 Patient encounter procedure Ranjit Roque MD Work Phone: Cardiology Comment on above: Aneurysm of ascendin g aorta without rupture (Primary Dx); Disorder of artery or arteriole (HCC); Pre-operative cardiovascular examination; Aortic valve disorder Start: 06-24-2022 End: 06-24-2022 Patient encounter status Ranjit Roque MD Work Phone: Cardiology Start: 06-24-2022 End: 06-25-2022 ambulatory JACOB FAROOQ Facility:[facility] Start: 06-24-2022 Encounter for preprocedural cardiovascular examination JACOB FAROOQ [facility] Start: 06-24-2022 End: 06-24-2022 ambulatory JACOB FAROOQ Pulmonary Medicine Comment on above: Spirometry Start: 06-24-2022 End: 06-24-2022 Patient encounter procedure Pulm Fct Lab J-1 [facility] Start: 06-24-2022 End: 06-24-2022 Patient encounter status Pulm J-1 Pulmonary Medic ine Start: 06-24-2022 End: 06-24-[address] (I-Stat) Work Phone: Radiology Start: 06-24-2022 End: 06-24-2022 Subsequent hospital visit by physician Ct Main J (I-Stat) Work Phone: Radiology Comment on above: Disorder of artery o r arteriole (HCC) [I77.9] Start: 06-18-2022 ambulatory LIZ LYNCH Fa cility:[facility] Start: 06-01-2022 Telephone encounter Jacob layne MD Work Phone: Cardiothoracic Comment on above: Pre-Op Teaching Start: 05-29-2022 End: 05-29-2022 Patient encounter procedure PARTS SALES ADVISOR-Craig Alba Work Phone: [facility] Start: 05-28-2022 Telephone encounter Jacob layne MD Work Phone: Cardiothoracic Comment on above: Insurance Authorizat ion Start: 05-19-2022 Review Asa Alba CNP Work Phone: [facility] Start: 05-19-2022 End: 05-19-2022 Admission to same day surgery center PARTS SALES ADVISOR-Craig Alba Work Phone: [facility]-Independent Living Instructor/Special Procedures Start: 05-19-2022 End: 05-19-2022 ambulatory PARTS SALES ADVISOR-Craig Alba Work Phone: [facility] Work Phone: Start: 05-18-2022 Non-patient / Non-visit PARTS SALES ADVISOR-Craig Alba Work Phone: [facility] Start: 04-22-2022 Registered Referred PARTS SALES ADVISOR-C Rosalee Alba Work Phone: [facility]-Cardiovascular Services Start: 04-22-2022 Non-patient / Non-visit PARTS SALES ADVISOR-C Craig Alba Work Phone: [facility] Start: 04-17-2022 End: 04-17-2022 Patient encounter procedure Asa Alba CNP Work Phone: [facility] Start: 04-16-2022 End: 04-16-2022 Patient encounter procedure PARTS SALES ADVISOR-C Asa Alba Work Phone: [facility] Start: 04-14-2022 Non-patient / Non-visit PARTS SALES ADVISOR-C Craig Alba Work Phone: [facility] Start: 04-08-2022 End: 04-08-2022 Patient encounter procedure Asa Alba CNP Work Phone: [facility] Start: 02-20-2022 End: 02-20-2022 Periodic preventive med est patient 40-64yrs Asa Alba CNP Work Phone: [facility] Start: 02-20-2022 End: 02-20-2022 Physical examination Asa Alba CNP Work Phone: [facility] Start: 02-02-2022 End: 02-02-2022 Patient encounter procedure No Primary Care Physician [facility]-Laboratory Start: 02-02-2022 Registered Referred No Primary Care Physician [facility]-Employee Health Start: 01-23-2022 End: 01-29-2022 Office outpatient visit 25 minutes Asa Alba CNP Work Phone: [facility] Start: 01-23-2022 Review Asa Alba CNP Work Phone: [facility] Start: 01-16-2022 End: 01-16-2022 Phone Encounter Ramona Graham Work Phone: [facility] Start: 01-14-2022 End: 01-14-2022 Phone Encounter Ramona Graham Work Phone: [facility] Start: 01-14-2022 End: 01-14-2022 Patient encounter procedure No Primary Care Physician [facility]-Laboratory Start: 01-13-2022 End: 01-13-2022 Patient encounter procedure No Primary Care Physician [facility] Start: 01-12-2022 End: 01-12-2022 Phone Encounter Ramona Graham Work Phone: [facility] Start: 01-09-2022 Non-patient / Non-visit No Anaya ramona Care Physician [facility] Start: 01-09-2022 End: 01-09-2022 Patient encounter procedure No Primary Care Physician [facility]-Cardiovascular Services Start: 12-31-2021 End: 01-01-2022 Office outpatient visit 25 minutes Ramona Graham Work Phone: [facility] Start: 12-22-2021 End: 12-22-2021 Phone Encounter Ramona Graham Work Phone: [facility] Start: 12-22-2021 End: 12-22-2021 Patient encounter procedure [facility]-Laboratory Start: 12-16-2021 End: 12-18-2021 Office outpatient visit 15 minutes Ramona Garham Work Phone: [facility] Start: 11-19-2021 End: 11-19-2021 Discharged Recurring No Primary Care Physician [facility]-Physical Therapy Start: 11-19-2021 Registered Recurring [facility]-Physical Therapy Start: 07-04-2021 End: 07-04-2021 Office outpatient visit 10 minutes Ramona Graham SCUBA INSTRUCTOR Work Phone: [facility] Start: 06-11-2021 End: 06-11-2021 Annotation/Addendum Ramona Graham SCUBA INSTRUCTOR Work Phone: [facility] Start: 05-27-2021 End: 05-27-2021 Office outpatient visit 15 minutes Ramona Rachana SCUBA INSTRUCTOR Work Phone: [facility] Start: 05-13-2021 End: 05-13-2021 Office outpatient visit 15 minutes Ramona Graham CNP Work Phone: [facility] Start: 04-04-2021 End: 04-04-2021 Office outpatient visit 10 minutes Ramona Graham SCUBA INSTRUCTOR Work Phone: [facility] Start: 04-02-2021 End: 04-02-2021 Annotation/Addendum Ramona Graham SCUBA INSTRUCTOR Work Phone: [facility] Start: 03-21-2021 End: 03-21-2021 Patient encounter status Asa Alba SCUBA INSTRUCTOR Work Phone: [facility] Start: 03-21-2021 End: 03-21-2021 Periodic preventive med est patient 40-64yrs Ramona Graham CNP Work Phone: [facility] Start: 05-28-2020 End: 05-28-2020 Office outpatient visit 15 minutes Ramona Graham [facility] Start: 05-28-2020 Review Ramona Graham Comprehens [facility] Start: 03-05-2020 End: 03-05-2020 Periodic preventive med est patient 40-64yrs Ramona Graham [facility] Start: 03-05-2020 End: 03-05-2020 Physical examination Asa Alba SCUBA INSTRUCTOR Work Phone: [facility] Start: 03-05-2020 Review Ramona Graham Comprehens [facility] Start: 06-05-2019 End: 06-05-2019 Office outpatient visit 25 minutes Ramona Graham [facility] Start: 02-24-2019 End: 02-24-2019 Annotation/Addendum Ramona Graham [employer] [facility] Start: 02-24-2019 End: 02-24-2019 Annotation/Addendum Ramona Graham [employer] [facility] [employer] [facility] Start: 02-24-2019 End: 02-24-2019 Patient encounter status Asa Alba SCUBA INSTRUCTOR Work Phone: [facility] Start: 02-24-2019 End: 02-24-2019 Periodic preventive med est patient 40-64yrs Ramona Graham [facility] Start: 02-17-2019 End: 02-17-2019 Annotation/Addendum Ramona Graham [employer] [facility] Start: 12-26-2018 End: 12-26-2018 Phone Encounter [facility] [employer] [facility] Start: 10-31-2018 End: 10-31-2018 Annotation/Addendum [facility] [employer] [facility] Start: 10-28-2018 End: 10-28-2018 Annotation/Addendum [facility] [employer] [facility] Start: 09-08-2018 End: 09-08-2018 Annotation/Addendum [facility] [employer] [facility] Start: 07-01-2018 End: 07-01-2018 Lab Order [facility] [employer] [facility] Start: 07-01-2018 End: 07-01-2018 Annotation/Addendum [facility] [employer] [facility] Start: 05-06-2018 End: 05-06-2018 Office outpatient visit 10 minutes [facility] Start: 05-02-2018 End: 05-02-2018 Annotation/Addendum [facility] [employer] [facility] Start: 04-15-2018 End: 04-15-2018 Office outpatient visit 15 minutes [facility] Start: 02-03-2018 End: 02-03-2018 Patient encounter status Asa Alba CNP Work Phone: [facility] Start: 02-03-2018 End: 02-03-2018 Periodic preventive med est patient 40-64yrs [facility] Start: 01-21-2018 End: 01-21-2018 Patient encounter status Ervin Dumont LPN [facility]; [facility] Work Phone: Start: 01-21-2018 End: 01-21-2018 Periodic preventive med est patient 40-64yrs [facility] Start: 03-01-2017 End: 03-01-2017 Patient encounter status Asa Alba CNP Work Phone: [facility] Start: 03-01-2017 End: 03-01-2017 Periodic preventive med est patient 40-64yrs [facility] Start: 12-08-2016 End: 12-08-2016 Office outpatient visit 15 minutes [facility] Start: 03-03-2016 End: 03-03-2016 Patient encounter status Asa Alba CNP Work Phone: [facility] Start: 03-03-2016 End: 03-03-2016 Periodic preventive med est patient 40-64yrs Ramona Minayafoster [facility] Start: 03-06-2015 End: 03-06-2015 Office outpatient visit 25 minutes Ramona Minayafoster [facility] Start: 03-30-2014 End: 03-30-2014 Office outpatient visit 25 minutes Ramona Criscydney [facility] Start: 02-02-2014 End: 02-02-2014 Patient encounter [facility] [employer] [facility] Start: 12-15-2013 End: 12-15-2013 Phone Encounter Ramona [facility] [employer] Regist[facility] Start: 10-27-2013 End: 10-29-2013 Patient encounter [facility] [employer] [facility] Start: 07-03-2013 End: 07-03-2013 Patient encounter [facility] [employer] [facility] Start: 03-29-2013 End: 03-29-2013 Office outpatient visit 25 minutes Ram[facility] Start: 03-15-2013 End: 03-15-2013 Patient encounter [facility] [employer] [facility] Start: 01-09-2013 End: 01-09-2013 Office outpatient visit 25 minutes Ramona Criscydney [facility] Start: 09-30-2012 End: 09-30-2012 Office outpatient visit 25 minutes [facility] Start: 07-08-2012 End: 07-08-2012 Office outpatient visit 25 minutes [facility] Start: 05-27-2012 End: 05-27-2012 Office outpatient visit 25 minutes [facility] Start: 04-29-2012 End: 04-29-2012 Office outpatient visit 15 minutes [facility] Start: 04-15-2012 End: 04-15-2012 Office outpatient visit 15 minutes [facility] Start: 04-13-2012 End: 04-13-2012 Office outpatient visit 25 minutes [facility] Patient encounter status Ervin Dumont LPN [facility] Work Phone: Patient encounter status Domenica Thomas LPN [facility]; [facility] Work Phone: Patient encounter status Ervin Dumont LPN [facility]; [facility] Work Phone: Patient encounter status Susana Zamora LP N [facility]; [facility] Work Phone: Patient encounter status Jaimee Buitrago Kolby DO Work Phone: [facility]; [facility] Work Phone: Patient encounter status Amber Kerr [facility]; [facility] Work Phone: Patient encounter status Domenica Thomas FLAT HAMMERER [facility]; [facility] Work Phone: Patient encounter status Isela Jono Srinivasan MA [facility]; [facility] Work Phone: Patient encounter status Domenica Slarb FLAT HAMMERER [facility]; [facility] Work Phone: Physical examination Ramona buitrago [employer]UBA INSTRUCTOR Work Phone: [facility]; [facility] Work Phone: Physical examination Ervin Tim FLAT HAMMERER [facility]; [facility] Work Phone: Physical examination Jaimeefoster Russo t DO Work Phone: [facility]; [facility] Work Phone: Physical examination Amber Kerr [facility]; [facility] Work Phone: Physical examination Domenica Slarb FLAT HAMMERER [facility]; [facility] Work Phone: Physical examination Asa seymour SCUBA INSTRUCTOR Work Phone: [facility]; [facility] Work Phone: Physical examination Domenica Slarb FLAT HAMMERER [facility]; [facility] Work Phone: Physical examination Domenica Slarb FLAT HAMMERER [facility]; [facility] Work Phone: Procedures Date Procedure Procedure Detail Performing Clinician Start: 10-12-2024 Pelvic echography Asa Alba [employer]S SALES ADVISOR-C Work Phone: Start: 03-26-2023 End: 03-26-2023 CT Abd/Pelvis W/WO Contrast Procedure Note: See Note; NOTES: [facility] Imaging Services [address] [place] [address] CT Abd/Pelvis W/WO Contrast MR#: [id number] Acct: [id number] Name: JENARO WILSON Rep #: [id number] : 1960 F 62 From: Leo antunez MD PCP: LESLIE PaulC Status: REG CLI Study: CT Abd/Pelvis W/WO Contrast Date of Exam: 03/10 Exam# [id number] Ordering Dr: Pop Resendiz MD STUDY: CT ABDOMEN AND PELVIS WITH AND WITHOUT CONTRAST REASON FOR EXAM: Female, 62 years old. Asymptomatic microscopic hematuria RADIATION DOSAGE (If Supplied By Facility): CTDIvol = ( 24.19 ) mGy, DLP = ( 4289.88 ) mGycm TECHNIQUE: Transaxial images were obtained from the dome of the diaphragm to the symphysis pubis without oral contrast. IV 100mL Isovue-300 was administered. Sagittal and coronal images were reconstructed. Individualized dose optimization techniques were used for this CT. COMPARISON: None. FINDINGS: The visualized lung bases are unremarkable. Coronary artery calcification. Status post aortic valve replacement. 2 cysts are seen in the left lobe of the liver. The larger cyst measures 2 cm x 1.8 cm. Normal gallbladder and extrahepatic biliary system. Normal spleen. Normal pancreas. Normal bilateral adrenal glands. Normal right kidney. Normal left kidney. Normal visualized stomach. Normal small intestine. Normal colon. The appendix is visualized and appears normal. Normal abdominal aorta. Normal inferior vena cava. There is borderline retroperitoneal lymphadenopathy with enlarged nodes no greater than 10mm in the short axis diameter. Normal urinary bladder. Enlarged fibroid uterus. There is a small umbilical hernia containing fat. There are mild degenerative changes of the visualized lumbar spine. CT/CT Abd/Pelvis W/WO Contrast IMPRESSION: Small cysts are seen in the left lobe of the liver. Enlarged fibroid uterus. Electronically Signed: Leo Guardado MD at 15:14 EDT , CC: CORDELIA Alba; Dr. Pop Resendiz MD Imaging Science Professor: Signed Asa Alba CNP Work Phone: Start: 03-04-2023 End: 03-05-2023 Dexa Bone Density Study Procedure Note: See Note; NOTES: [facility] Imaging Services [address] [place] [address] Dexa Bone Density Study MR#: [id number] Acct: [id number] Name: JENARO WILSON Rep #: [id number] : 1960 F 62 From: Leo antunez MD PCP: CORDELIA Paul Status: [facility] CLI Study: Dexa Bone Density Study Date of Exam: 03/04/23 Exam# [id number] Ordering Dr: Asa Alba STUDY: DUAL ENERGY X-RAY ABSORPTIOMETRY / DXA REASON FOR EXAM: Female, 62 years old. V76.12ScreeningBONE DENSITY REASON FOR EXAM TECHNIQUE: Bone Mineral Density (BMD) measurements of lumbar spine and bilateral hips were obtained. COMPARISON: Comparison is made with prior study dated August 10, 2019. FINDINGS: Lumbar Spine (L1-L4): g/cm2 (0.879) / T-score (-1.5) / Z-score (0.0) Findings are suggestive of osteopenia with a low fracture risk. Left Femur Total: g/cm2 (0.812) / T-score (-1.1) / Z-score (0.0) Left Femoral Neck: g/cm2 (0.716) / T-score (-1.2) / Z-score (0.2) Right Femur Total: g/cm2 (0.789) / T-score (-1.3) / Z-score (-0.2) Right Femoral Neck: g/cm2 (0.685) / T-score (-1.5) / Z-score (-0.1) The T-Scores on the most recent prior examination were: Lumbar Spine (L1-L4): There has been worsening of bone density since the previous examination. Left Femur Total: which represents a worsening of 22%. Right Femur Total: which represents a worsening of 22.9%. BD/Dexa Bone Density Study IMPRESSION: The patient is considered osteopenic as outlined below according to World [place] Organization (WHO) criteria with a low fracture risk. There has been worsening of bone density since the previous examination. Reference Information: The T-score is the number of standard deviations above or below the standard which is normal for young adults at their peak bone mineral density. The World Health Organization (WHO) interprets the T-scores as follows: Above -1 Normal bone density Between -1 and -2.5 Osteopenia Equal to / or below -2.5 Osteoporosis As a practical clinical guideline, osteopenia may be graded as follows: Mild -1 through -1.5 Moderate -1.6 through -2.0 Severe -2.1 through -2.4 The Z-score is the number of standard deviations above or below age-matched controls. A Z-score of less than -1.5 would be considered abnormal. References: 1. NIH Osteoporosis and Related Bone Diseases www osteo.org 2. International Society for Clinical Densitometry www iscd.org 3. National Osteoporosis Foundation www nof.org Electronically Signed: Leo Guardado MD at 12:29 EDT , CC: PARTS SALES ADVISORMikeC Asa Alba Imaging Science Professor: Signed Asa Alba [facility] Work Phone: Start: 03-04-2023 Dual energy X-ray absorptiometry Start: 03-04-2023 Screening mammography Start: 03-04-2023 End: 03-05-2023 SCRN MAMM (CAD)W/STEPHANI BILAT Procedure Note: See Note; NOTES: [facility] Imaging Services [address] [place] [address] SCRN MAMM (CAD)W/STEPHANI BILAT MR#: [id number] Acct: [id number] Name: JENARO WILSON Rep #: [id number] : 1960 F 62 From: Leo antunez MD PCP: CORDELIA Paul Status: REG CLI Study: SCRN MAMM (CAD)W/STEPHANI BILAT Date of Exam: 02/16 02/07 Exam# [id number] Ordering Dr: Asa Alba PARTS SALES ADVISORShantal MAMMOGRAPHY - BILATERAL SCREENING REASON FOR EXAM: Female, 62 years old. Routine annual screening examination. PERTINENT HISTORY: Non-contributory. TECHNIQUE: Digital bilateral breast stephani (3D mammographic acquisition) in the CC and MLO projections. 2-D mediolateral oblique (MLO) and craniocaudad (CC) views of both breasts were obtained. CAD: Full Field Digital Mammography with Computer Added Detection was performed. COMPARISON: Comparison is made with prior study of April 02, 2021 and July 07, 2018 FINDINGS: Breast Composition: There are scattered areas of fibroglandular density. There are no dominant masses or suspicious calcifications. Stable small benign-appearing bilateral axillary lymph nodes. No other significant abnormalities are identified. There has been no significant change since the prior study. BI/SCRN MAMM (CAD)W/STEPHANI BILAT IMPRESSION: Stable bilateral screening mammogram. Yearly follow-up mammogram recommended. (A) ASSESSMENT CATEGORY: BIRADS Category 2: Benign. A letter regarding these results will be sent to the patient by the facility within 30 days. Approximately 10% of breast cancers are not detected by mammography. A normal mammogram should not delay biopsy of a clinically suspicious abnormality. [id number] Electronically Signed: Leo Guardado MD at 8:55 EDT Reading Location ID and State: [facility] / [place] , Service support , CC: CORDELIA Alba Imaging Science Professor: Signed Asa Alba CNP Work Phone: Start: 10-23-2022 End: 10-23-2022 Cardiology Visit Report Procedure Note: See Note; NOTES: 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 She established with us in March 2022 based upon concerns of dizziness as well as findings of aortic valve disease with the appearance of a bicuspid aortic valve with moderate to severe aortic valve stenosis. She states to the best of her knowledge she has been told she has had a murmur in the past, but states it was never thought to be concerning and/or pursued. Thus she had not undergone cardiovascular evaluation. As part of her evaluation she had a transthoracic echocardiogram performed. She had a normal left ventricle with an LVEF of 65% with trivial MR/TR and a bicuspid appearing aortic valve with moderate to severe aortic valve stenosis with a peak aortic valve velocity of approximately 3.5 cm/s, mean gradient of approximately 28 mmHg, and an aortic valve area of approximately 0.7 cm???. She also was noted to have trivial ND and a mild to moderately dilated aortic root. She underwent open heart surgery on 06/26/[address] Farooq at [facility]. This resulted in aortic valve replacement with an Inspiris #23 tissue type aortic valve and ascending aorta aortoplasty and PFO closure. Echocardiogram in September 2022 showed an ejection fraction 55% and mild aortic valve stenosis with a mean aortic valve gradient of 7.3 mmHg. She denies chest, arm, jaw, or neck discomfort. She denies palpitations. She denies bilateral lower extremity edema. She denies claudication. She denies shortness of breath with activity, shortness of breath at rest, orthopnea, or PND. She denies chronic cough. She denies significant, sudden weight gain. She denies lightheadedness, dizziness, near-syncope, or syncope. She denies blood in urine, blood in stool, or epistaxis. He denies fever with chills. She denies myalgia. She denies fatigue. Her exercise level has remained stable. 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: No Is patient in pain?: No Allergies No Known Allergies Allergy (Verified 10/23/22 08:43) Medications aspirin 81 mg chewable tablet 81 mg PO DAILY #1 TAB 04/16/22 [Rx Confirmed 10/23/22] acetaminophen 500 mg tablet 1,000 mg PO Q6H PRN pain #120 tabs 07/21/22 [Rx Confirmed 10/23/22] metoprolol succinate 25 mg tablet,extended release 24 hr 25 mg PO BID 08/20/22 [History Confirmed 10/23/22] ferrous sulfate 325 mg (65 mg iron) tablet 325 mg PO DAILY 10/23/22 [History Confirmed 10/23/22] mecobalamin (vitamin B12) 500 mcg chewable tablet mcg PO 10/23/22 [History Confirmed 10/23/22] PFS Medical History AC (acromioclavicular) arthritis Alcohol use Arthritis Back pain Benign essential hypertension, age 0-18 Biceps tendonitis on right Bicuspid aortic valve Essential hypertension History of edema Hyperparathyroidism Hypertension Migraine headache Non-smoker Nonrheumatic aortic (valve) stenosis Partial tear of right rotator cuff Screen for colon cancer Syncope Tachycardia Vitamin D deficiency Surgical History History of aortic valve replacement with bioprosthetic valve ( 06/26/22) History of ascending aorta repair ( 06/26/22) History of History of rotator cuff surgery Hx of colonoscopy Status post patent foramen ovale closure ( 06/26/22) Family History Mother Hypertension Diabetes Sister Heart valve replaced Aortic aneurysm Social History Smoking Status: Never smoker alcohol intake: current alcohol intake frequency: holidays/special occasions only substance use type: does not use caffeine: No what type of physical activity do you participate in: other details: gym frequency: 1-2 times per week do you feel safe at home: Yes ROS Const Const: Negative for fatigue, weakness, body ache, fever(s) or chills ENT ENT: Negative for dizziness or Nosebleed/epistaxis Cardio Chest Pain: No Palpitations: No Edema: None Muscle aches with walking: None Resp Respiratory: Negative for SOB with activity, SOB at rest, SOB orthopnea SOB lying down, Cough or paroxysmal nocturnal dyspnea GI GI: Negative nausea, vomiting blood/hematemesis, bright, red blood in stools or black,tarry stools : Negative for hematuria or frequent nighttime urination/ nocturia Musc Musc: Negative for muscle aches/ myalgia Skin Skin: Negative non-healing lesions or rash Neuro Neuro: Negative for dizziness, lightheadedness, near syncope, syncope, orthostatic symptoms or weakness Endo Endo: Negative for fatigue Allergy Allergy/Immunology: Negative for rash Cardiology Exam Const Appearance: cooperative, healthy appearing, comfortable and no acute distress Nutritional Appearance: well nourished and overweight Orientation: alert, awake and oriented x3 Head Head: normal to inspection Ears: hearing grossly normal bilaterally Nose: external nose normal Face and Sinus: face symmetric Mouth: moist mucous membranes Eyes General: appearance normal, both eyes and all related structures Eyelids: eyelids normal EOM: EOM intact bilaterally Neck Neck: normal visual inspection and no JVD Carotids: normal carotid upstroke Chest Chest inspection: normal inspection of the chest, symmetric chest movement and normal respiratory effort; Negative cough Auscultation: Bilateral: Clear to Auscultation Cardio Rate: regular rate Rhythm: regular rhythm Heart sounds: S1 normal, S2 normal and murmur; Negative rub or gallop Murmur: Grade 1/6, soft and EMILY loudest primary aortic area GI GI: normal to inspection Neuro General: patient alert, patient awake, patient oriented x3 and CN's II-XI intact bilaterally Skin Skin: no rashes or lesions noted Extremities Pulses: Normal: Right Posterior Tibial Pulse, Left Posterior Tibial Pulse, Right Radial Pulse and Left Radial Pulse Lower Extremity Edema: None: Bilateral Psych Psychological: normal affect Supplemental Info Supplemental Information Echocardiogram from 09/22/2022: Interpretation Summary The study was technically difficult. Based upon the 2D echocardiographic images obtained there appears to be grossly normal left ventricular size, wall motion, and systolic function. The estimated ejection fraction is 55 %. Trivial mitral valve insufficiency. Trivial tricuspid valve insufficiency. Stable appearing bioprosthetic aortic valve apparatus. Mild aortic stenosis. Trivial pulmonic valve insufficiency. Aortic root repair. Unable to estimate RV systolic pressure/pulmonary artery pressure due to technically difficult study. No evidence for diastolic dysfunction. Echocardiogram: 01/09/2022 Interpretation Summary The study was technically difficult. Contrast injection was performed.??? Left ventricular systolic function is normal. The estimated ejection fraction is 65 %. Trivial mitral valve insufficiency. Trivial tricuspid valve insufficiency. Bicuspid aortic valve. Moderate - Severe Aortic Valve Stenosis. Trivial pulmonic valve insufficiency. Mild to moderately dilated aortic root. Unable to estimate RV systolic pressure/pulmonary artery pressure due to technically difficult study. Diastolic function is indeterminate. Heart catheterization from 05/19/2022: CONCLUSIONS Right heart pressures - borderline to mildly elevated The patient has pulmonary hypertension which is borderline - mild. Intracardiac shunting: None [place] Multivessel CAD (non obstructive) Aortic Valve Calcification- Severe RECOMMENDATIONS Risk factor modification Medical therapy Surgery consult for valvular disease CORONARY ANGIOGRAPHY DOMINANCE: Right Dominant LEFT HEART ASSESSMENT Left Ventricular Ejection Fraction: Not assessed RIGHT HEART ASSESSMENT Thermal CO: 5.02 Thermal CI: 2.65 Geo CO: 8.1 Geo CI: 4.27 PW: 11 PA: 32/14 21 RV: 31/7 13 RA: 05/26 6 PVR: 159 SVR: 1291 Right Heart pressures - elevated (borderline) Pulmonary Hypertension: borderline to mildly elevated. Pulmonary Hypertension: borderline to mildly elevated. Intracardiac shunting: None LEFT MAIN: Angiographically normal LEFT ANTERIOR DESCENDING ARTERY: Mild luminal irregularities CIRCUMFLEX ARTERY: Mild luminal irregularities RIGHT CORONARY ARTERY: Mild luminal irregularities VALVE FINDINGS: Aortic Valve Calcification - severe COMPLICATIONS No Complications Labs: LDL Cholesterol 97 mg/dL (0-130) HDL Cholesterol 66 mg/dL (40-) Cholesterol 184 mg/dL (200) Triglycerides 105 mg/dL (-199) Diagnostics: Electrocardiogram Echocardiogram Cardiac Catheterization Chest X-Ray Pulmonary: No Data to Display Past Visits: No Data to Display Assessment and Plan Assessment and Plan (1) History of aortic valve replacement with bioprosthetic valve: Status: Acute Comment: Tissue , Inspiris #23 @ [facility] Dr. Jacob Farooq 06/26/22 Plan: She has a history of bicuspid aortic valve and is now post tissue valve replacement in June 2022. Her echocardiogram in September 2022 showed anejection fraction of 55%, stable appearing bioprosthetic aortic valve apparatus, and mild aortic valve stenosis. She will continue antibiotic prophylaxis. She will continue metoprolol therapy. We will continue to monitor. (2) History of ascending aorta repair: Status: Acute Comment: Aortoplasty @ [facility] Dr. Jacob Black 06/26/22 Plan: Patient is status post aortoplasty on 06/26/2022. She appears to be doing symptomatically well. We will continue to monitor. She is currently working and feeling well. (3) Status post patent foramen ovale closure: Status: Acute Comment: closed primarily with running prolene suture @ [facility] Dr. Jacob Black 06/26/22 Plan: Patient is status post PFT closure on 06/26/2022. This appears stable. We will continue to monitor. (4) Essential hypertension: Status: Acute Plan: Patient's blood pressure is well-controlled. We will continue to monitor. We will not make any medication regimen changes. (5) Anemia: Status: Acute Plan: After last office visit, she underwent laboratory evaluation to assess her hemoglobin. This was noted to be 10.5, which was consistent with testing prior. This was evaluated with primary care provider who started patient on B12 and iron. She states her hemoglobin has been rechecked and is improved. She was asked continue to follow primary care provider for ongoing management. Plan Details Additional Comments: Thank you for allowing us to participate in the patients plan of care, if you have any questions please do not hesitate to call. This note was generated using a voice recognition system and there may be incorrect words, spelling or punctuation that were not noted when reviewing the office note prior to saving. Portions of this documentation were copied and pasted from previous office visit notes to provide a cohesive continuity of the history. The note has been reviewed, edited, and updated, as necessary. Follow Up: 6 Months (AR (PFM Pt.)) Coding Level of Care Code Off vis,est,level 3 Diagnoses History of aortic valve replacement with bioprosthetic valve Z95.3 History of ascending aorta repair Z98.890 Status post patent foramen ovale closure Z87.74 Essential hypertension I10 Anemia D64.9 Coding Level of Care Code Off vis,est,level 3 Diagnoses History of aortic valve replacement with bioprosthetic valve Z95.3 History of ascending aorta repair Z98.890 Status post patent foramen ovale closure Z87.74 Essential hypertension I10 Anemia D64.9 10/23/22 0935 <Electronically signed by Nathan Hastings NP PARTS SALES ADVISOR-C> Date Nathan NELSONC Cosigner Signature: Date (if applicable) CC: PARTS SALES ADVISOR-C Asa Alba [employer] Work Phone: Start: 09-22-2022 End: 09-22-2022 Echo Complete Procedure Note: See Note; NOTES: [facility] [place] [address] Echo Complete 09/22/22 1523 MR#: [id number] Acct: [id number] Name: JENARO WILSON Rep #: [id number] : 1960 62 From: Devonte Cullen MD Attending Dr: Vianey De La Garza, PARTS SALES ADVISOR-C Status: TELLY Srinivasan Ordering Dr: Vianey De La Garza PARTS SALES ADVISOR PARTS SALES ADVISOR-C Date: 09/22/22 Location: [facility] Sex: F C Admitted: Reason For Study: S/P AVR Procedure This was a 2D Doppler, Color Flow transthoracic echocardiogram. The study was technically difficult. Exam performed in department. Left Ventricle Based upon the 2D echocardiographic images obtained there appears to be grossly normal left ventricular size, wall motion, and systolic function. The estimated ejection fraction is 55 %. No evidence for diastolic dysfunction. Right Ventricle Normal RV size. Normal systolic function. Atria Normal left atrium. Normal right atrium. No doppler evidence for ASD. Mitral Valve There is no mitral annular calcification. Normal mitral valve. Trivial mitral valve insufficiency. Tricuspid Valve Normal tricuspid valve. Trivial tricuspid valve insufficiency. Unable to estimate RV systolic pressure/pulmonary artery pressure due to technically difficult study. Aortic Valve Mild aortic stenosis. Stable appearing bioprosthetic aortic valve apparatus. Pulmonic Valve The pulmonic valve is not well visualized. Trivial pulmonic valve insufficiency. Great Vessels Aortic root repair. Pericardium/Pleural No pericardial effusion. MMode/2D Measurements Calculations LVIDd: 4.5 cm IVSd: 1.3 cm LVOT diam: 2.2 cm LVIDs: 2.8 cm LVPWd: 0.92 cm LVOT area: 3.9 cm2 FS: 37.6 % Ao root diam: 3.1 cm LAV(MOD-sp4): 40.5 ml LVAd ap4: 28.4 cm2 LVLd ap4: 8.4 cm EDV(MOD-sp4): 79.0 ml EDV(sp4-el): 81.3 ml LVAs ap4: 18.2 cm2 LVLs ap4: 7.3 cm ESV(MOD-sp4): 38.5 ml ESV(sp4-el): 38.4 ml EF(MOD-sp4): 51.3 % EF(sp4-el): 52.8 % SV(MOD-sp4): 40.5 ml SV(sp4-el): 43.0 ml LA A4 area: 16.0 cm2 RA A4 area: 9.9 cm2 Time Measurements MV dec time: 0.26 sec Doppler Measurements Calculations MV E max drew: 57.7 cm/sec Lat Peak E' Drew: 8.5 cm/sec Med Peak E' Drew: 6.6 cm/sec MV A max drew: 58.5 cm/sec E/E' lat: 6.8 E/E' med: 8.8 MV E/A: 0.99 MV V2 max: 75.5 cm/sec Ao V2 max: 175.5 cm/sec MV max P.3 mmHg MV dec slope: 228.0 cm/sec2 Ao max P.5 mmHg MV V2 mean: 47.2 cm/sec Ao V2 mean: 127.0 cm/sec MV mean P.0 mmHg Ao mean P.3 mmHg MV V2 VTI: 20.4 cm Ao V2 VTI: 34.8 cm AV (velocity ratio): 0.48 MVA(VTI): 3.1 cm2 MAURO(I,D): 1.8 cm2 MAURO(V,D): 1.7 cm2 LV V1 max: 78.0 cm/sec SV(LVOT): 64.1 ml PA V2 max: 83.9 cm/sec LV V1 max P.5 mmHg PA V2 mean: 60.5 cm/sec LV V1 mean P.4 mmHg LV V1 mean: 55.9 cm/sec LV V1 VTI: 16.6 cm ECHO/Echo Complete Interpretation Summary The study was technically difficult. Based upon the 2D echocardiographic images obtained there appears to be grossly normal left ventricular size, wall motion, and systolic function. The estimated ejection fraction is 55 %. Trivial mitral valve insufficiency. Trivial tricuspid valve insufficiency. Stable appearing bioprosthetic aortic valve apparatus. Mild aortic stenosis. Trivial pulmonic valve insufficiency. Aortic root repair. Unable to estimate RV systolic pressure/pulmonary artery pressure due to technically difficult study. No evidence for diastolic dysfunction. Ordering Physician: Vianey De La Garza Referring Physician: Vianey De La Garza Performed By: Darshana Vargas RCS 09/22/22 1648 Date Devonte Cullen MD CC: CORDELIA Alba; CORDELIA De La Garza Date Dictated: 09/22/22 1523 Date Transcribed: 09/22/22 1648 Imaging Science Professor: Signed Asa Alba [employer] INSTRUCTOR Work Phone: Start: 08-20-2022 End: 08-20-2022 Cardiology Visit Report Procedure Note: See Note; NOTES: [facility] 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 She established with us in March 2022 based upon concerns of dizziness as well as findings of aortic valve disease with the appearance of a bicuspid aortic valve with moderate to severe aortic valve stenosis. She states to the best of her knowledge she has been told she has had a murmur in the past, but states it was never thought to be concerning and/or pursued. Thus she had not undergone cardiovascular evaluation. As part of her evaluation she had a transthoracic echocardiogram performed. She had a normal left ventricle with an LVEF of 65% with trivial MR/TR and a bicuspid appearing aortic valve with moderate to severe aortic valve stenosis with a peak aortic valve velocity of approximately 3.5 cm/s, mean gradient of approximately 28 mmHg, and an aortic valve area of approximately 0.7 cm???. She also was noted to have trivial ND and a mild to moderately dilated aortic root. She underwent open heart surgery on 06/26/[address] Farooq at [facility]. This resulted in aortic valve replacement with an Inspiris #23 tissue type aortic valve and ascending aorta aortoplasty and PFO closure. From a cardiac standpoint, the patient is doing well. She denies any palpitations, chest pain, pressure or heaviness. She does have soreness at her incision site. She denies SOB, Orthopnea, and PND. She does not have bleeding issues; no blood in urine, stool or nosebleeds. She denies any decrease in energy level, myalgias, or claudication. She does not have edema, or sudden weight gain. She does have an occasional lightheadedness. She denies dizziness, syncopal or near syncopal episodes, and headaches. She started cardiac rehab yesterday. Intake Vital Signs 08/04/22 08:59 08/17/22 10:32 08/20/22 13:53 08/20/22 13:53 Height 5 ft 5 in 5 ft 5 in 5 ft 5 in 5 ft 5 in Weight: 171 lb 170 lb BMI 28.3 BP 106/74 Blood Pressure Location Lt brachial Position Sitting Respiration 18 Pulse 95 Pulse Source Monitor Pulse Oximetry (%) 98 Intake Visit Reasons: fu per [employer] Patent Searcher Required: No Is patient in pain?: No Allergies No Known Allergies Allergy (Verified 08/20/22 14:16) Medications aspirin 81 mg chewable tablet 81 mg PO DAILY #1 TAB 04/16/22 [Rx Confirmed 08/20/22] acetaminophen 500 mg tablet 1,000 mg PO Q6H PRN pain #120 tabs 07/21/22 [Rx Confirmed 08/20/22] metoprolol succinate 25 mg tablet,extended release 24 hr 25 mg PO BID 08/20/22 [History Confirmed 08/20/22] PFSH Medical History (Reviewed 08/20/22 @ 14:16 by Vianey De La Garza PARTS SALES ADVISOR, PARTS SALES ADVISOR-C) AC (acromioclavicular) arthritis Alcohol use Arthritis Back pain Benign essential hypertension, age 0-18 Biceps tendonitis on right Bicuspid aortic valve Essential hypertension History of edema Hyperparathyroidism Hypertension Migraine headache Non-smoker Nonrheumatic aortic (valve) stenosis Partial tear of right rotator cuff Screen for colon cancer Syncope Tachycardia Vitamin D deficiency Surgical History History of aortic valve replacement with bioprosthetic valve ( 06/26/22) History of ascending aorta repair ( 06/26/22) History of History of rotator cuff surgery Hx of colonoscopy Status post patent foramen ovale closure ( 06/26/22) Family History Mother Hypertension Diabetes Sister Heart valve replaced Aortic aneurysm Social History Smoking Status: Never smoker alcohol intake: current alcohol intake frequency: holidays/special occasions only substance use type: does not use caffeine: No what type of physical activity do you participate in: other details: gym frequency: 1-2 times per week do you feel safe at home: Yes ROS Const Const: Negative for fatigue, weakness, fever(s), headache(s), chills, frequent falls, weight gain or weight loss Eyes Eyes: Negative for blind spots, loss of peripheral vision, transient loss of vision, blurry vision, change in vision, double vision, floaters or tunnel vision ENT ENT: Negative for headache(s), dizziness, Nosebleed/epistaxis, balance problems or neck pain Cardio Chest Pain: No Palpitations: No Edema: None Muscle aches with walking: None Additional Details: soreness at incision site Resp Respiratory: Negative for SOB with activity, SOB at rest or SOB orthopnea SOB lying down GI GI: Negative nausea, vomiting, heartburn, bloating, vomiting blood/hematemesis, bright, red blood in stools or black,tarry stools Musc Musc: Negative for muscle aches/ myalgia, muscle weakness, joint pain or balance problems Neuro Neuro: Negative for dizziness, lightheadedness, near syncope, syncope, orthostatic symptoms, frequent falls, headache(s), weakness, blurry vision or double vision Luis F Hematologic/Lymphatic: Negative for easy bleeding or easy bruising Endo Endo: Negative for fatigue Cardiology Exam Const Appearance: cooperative, healthy appearing, comfortable and no acute distress Nutritional Appearance: well nourished and overweight Orientation: alert, awake and oriented x3 Head Head: normal to inspection Ears: hearing grossly normal bilaterally Nose: external nose normal Face and Sinus: face symmetric Eyes General: appearance normal, both eyes and all related structures Eyelids: eyelids normal EOM: EOM intact bilaterally Neck Neck: normal visual inspection and no JVD Carotids: normal carotid upstroke Chest Chest inspection: normal inspection of the chest, symmetric chest movement, midline sternotomy incision and normal respiratory effort; Negative cough Auscultation: Bilateral: Clear to Auscultation Sternotomy incision well healed. No drainage Cardio Rate: regular rate Rhythm: regular rhythm Heart sounds: S1 normal, S2 normal and murmur; Negative rub or gallop Murmur: Grade 1/6, soft and EMILY loudest primary aortic area GI GI: normal to inspection Neuro General: patient alert, patient awake, patient oriented x3 and CN's II-XI intact bilaterally Skin Skin: no rashes or lesions noted Extremities Pulses: Normal: Right Posterior Tibial Pulse, Left Posterior Tibial Pulse, Right Radial Pulse and Left Radial Pulse Lower Extremity Edema: None: Bilateral Psych Psychological: normal affect Supplemental Info Supplemental Information Echocardiogram: 01/09/2022 Interpretation Summary The study was technically difficult. Contrast injection was performed.??? Left ventricular systolic function is normal. The estimated ejection fraction is 65 %. Trivial mitral valve insufficiency. Trivial tricuspid valve insufficiency. Bicuspid aortic valve. Moderate - Severe Aortic Valve Stenosis. Trivial pulmonic valve insufficiency. Mild to moderately dilated aortic root. Unable to estimate RV systolic pressure/pulmonary artery pressure due to technically difficult study. Diastolic function is indeterminate. Heart catheterization from 05/19/2022: CONCLUSIONS Right heart pressures - borderline to mildly elevated The patient has pulmonary hypertension which is borderline - mild. Intracardiac shunting: None [place] Multivessel CAD (non obstructive) Aortic Valve Calcification- Severe RECOMMENDATIONS Risk factor modification Medical therapy Surgery consult for valvular disease CORONARY ANGIOGRAPHY DOMINANCE: Right Dominant LEFT HEART ASSESSMENT Left Ventricular Ejection Fraction: Not assessed RIGHT HEART ASSESSMENT Thermal CO: 5.02 Thermal CI: 2.65 Geo CO: 8.1 Geo CI: 4.27 PW: 13/15 11 PA: 32/14 21 RV: 31/7 13 RA: 11/8 6 PVR: 159 SVR: 1291 Right Heart pressures - elevated (borderline) Pulmonary Hypertension: borderline to mildly elevated. Pulmonary Hypertension: borderline to mildly elevated. Intracardiac shunting: None LEFT MAIN: Angiographically normal LEFT ANTERIOR DESCENDING ARTERY: Mild luminal irregularities CIRCUMFLEX ARTERY: Mild luminal irregularities RIGHT CORONARY ARTERY: Mild luminal irregularities VALVE FINDINGS: Aortic Valve Calcification - severe COMPLICATIONS No Complications Labs: LDL Cholesterol 97 mg/dL (0-130) HDL Cholesterol 66 mg/dL (40-) Triglycerides 105 mg/dL (-199) VLDL Cholesterol 21 mg/dL (5-40) Diagnostics: Electrocardiogram Echocardiogram Cardiac Catheterization Chest X-Ray Pulmonary: No Data to Display Assessment and Plan Assessment and Plan (1) History of aortic valve replacement with bioprosthetic valve: Status: Acute Comment: Lulu Mcmillan #23 @ [facility] Dr. Jacob Farooq 06/26/22 Plan: Patient is status post aortic valve replacement with bioprosthetic valve on 06/26/2022. She appears stable at this time, and denies any recent symptoms or events. She started cardiac rehab yesterday. We will obtain an echocardiogram to assess her aortic valve post surgery. She will remain on light duty for work until her next follow up visit. She will continue with antibiotic prophylaxis. She will continue to monitor for any concerning symptoms. (2) Bicuspid aortic valve: Status: Resolved Comment: Johnie Mcmillans #23 @ [facility] Dr. Jacob Farooq 06/26/22 Plan: Patient has a history of bicuspid aortic valve. She is now status post tissue valve replacement. We will obtain an echocardiogram to assess this. She will continue with antibiotic prophylaxis. (3) History of ascending aorta repair: Status: Acute Comment: Aortoplasty @ [facility] Dr. Jacob Black 06/26/22 Plan: Patient is status post aortoplasty on 06/26/2022. She appears to be doing symptomatically well. We will obtain an echocardiogram to assess this. She will continue with cardiac rehab. (4) Status post patent foramen ovale closure: Status: Acute Comment: closed primarily with running prolene suture @ [facility] Dr. Jacob Black 06/26/22 Plan: Patient is status post PFT closure on 06/26/2022. This appears stable. She will continue with cardiac rehab. We will continue to monitor. (5) Essential hypertension: Status: Acute Plan: Patient has a history of hypertension. Her blood pressure is on the low end today. At this time, she will continue with her current medical therapy, along with monitoring her blood pressures at home. She will notify our office of any persistently elevated or low blood pressure readings. We will adjust medications as necessary. (6) Anemia: Status: Acute Plan: Patients most recent hemoglobin from 08/04/2022 was 10.6. We will obtain lab work to reassess this. Depending on results, further recommendations will be made. Orders: Orders Basic Metabolic Profile (BMP) Today I10 - Essential (primary) hypertension, Z95.3 - Presence of xenogenic heart valve Echo Complete 1 Month Z87.74 - Personal history of (corrected) congenital malformations of heart and circulatory system, Z95.3 - Presence of xenogenic heart valve CBC W/Diff, Automated Today Z95.3 - Presence of xenogenic heart valve Plan Details Additional Comments: Patient will follow up in 2 months, or sooner if needed. Thank you for allowing me to participate in the care of your patient. Please don't hesitate to call if any issues arise. This note was generated using a voice recognition system and there may be incorrect words, spelling, or punctuation that were not noted when reviewing the office note prior to saving. Portions of this documentation were copied and pasted from previous office visit notes to provide a cohesive continuity of the history. The note has been reviewed, edited, and updated, as necessary. Follow Up: Keep as is (MADIR) Coding Level of Care Code Off vis,est,level 4 Diagnoses History of aortic valve replacement with bioprosthetic valve Z95.3 Bicuspid aortic valve Q23.1 History of ascending aorta repair Z98.890 Status post patent foramen ovale closure Z87.74 Essential hypertension I10 Anemia D64.9 Coding Level of Care Code Off vis,est,level 4 Diagnoses History of aortic valve replacement with bioprosthetic valve Z95.3 Bicuspid aortic valve Q23.1 History of ascending aorta repair Z98.890 Status post patent foramen ovale closure Z87.74 Essential hypertension I10 Anemia D64.9 08/20/22 1523 <Electronically signed by Vianey STOREY> Date Vianey STOREY Cosigner Signature: Date (if applicable) CC: CORDELIA Alba [facility] Work Phone: Start: 08-17-2022 End: 08-30-2022 CR - History AND Physical Procedure Note: See Note; NOTES: [facility] [address] [place] [address] CR - History Physical MR#: [id number] Acct: [id number] Name: JENARO WILSON Rep #: [id number] : 1960 62 From: Dedrick Shipman BS, RVT PCP: CORDELIA Paul DOS: 08/17/22 CR - History Physical - General Arrival date:: 08/17/22 Arrival time:: 09:38 Date of Referral:: 08/04/22 Date of CR Evaluation:: 08/17/22 Referring Physician: Dr. Devonte Cullen Primary Diagnosis: Heart valve replacement - History of Present Cardiac Event Onset Date: Enter Onset Date of cardiac illnesses in Comment field below Heart valve replacement or repair:: Yes - 06/26/22 - Sleep Disorder Evaluation Hx of Sleep Apnea: No Do you snore loudly (louder than talking or can be heard through closed doors)?: No Do you often feel tired/ fatigued/ sleepy during daytime?: No Has anyone observed you stop breathing during sleep?: No History of Hypertension (for STOP score): Yes STOP Results: Negative - Medications Home Medications: Ambulatory Orders Medication Instructions Recorded cholecalciferol (vitamin D3) 125 125 mcg PO QWEEK 04/14/22 mcg (5,000 unit) tablet aspirin 81 mg chewable tablet 81 mg PO DAILY #1 TAB 04/16/22 acetaminophen 500 mg tablet 1,000 mg PO Q6H PRN pain #120 tabs 07/21/22 metoprolol succinate 25 mg 12.5 mg PO BID 08/04/22 tablet,extended release 24 hr furosemide 40 mg tablet 40 mg PO .COMPLEX #3 tabs 08/06/22 potassium chloride 20 mEq 20 meq PO .COMPLEX 08/06/22 tablet,extended release - Allergies Allergies/Adverse Reactions: Allergies No Known Allergies Allergy (Verified 08/04/22 09:00) Advanced Directives - Advanced Directives Power of Trimmer Machine Operator: No Living Will: No Advance Directives Information Provided: No Advance Directives on File: No DNR Order?:: No Past Medical History - Covid-19 Screening Has a serious heart condition:: Yes - Past Medical Illness Medical History: Past Medical History (Last Reviewed 08/04/22 @ 09:14 by Nathan Hastings NP, PARTS SALES ADVISOR-C) AC (acromioclavicular) arthritis M19.019 Alcohol use Z72.89 OCC Arthritis M19.90 Back pain M54.9 OCC Benign essential hypertension, age 0-18 I10 Biceps tendonitis on right M75.21 Bicuspid aortic valve Q23.1 Tissue , Inspiris #23 @ [facility] Dr[address] Jacob Farooq 06/26/22 Essential hypertension I10 History of edema Z87.898 MILD ANKLES Hyperparathyroidism E21.3 Hypertension I10 CONTROLLED WITH MED Migraine headache G43.909 OCC Non-smoker Z78.9 Nonrheumatic aortic (valve) stenosis I35.0 Mod-Severe per ECHO 01/09/22 Partial tear of right rotator cuff M75.111 Screen for colon cancer Z12.11 Syncope R55 D/T BP MED PRN Tachycardia R00.0 Vitamin D deficiency E55.9 - Past Surgical History Surgical History: Past Surgical History (Last Reviewed 08/04/22 @ 09:14 by Nathan Hastings PARTS SALES ADVISOR, PARTS SALES ADVISOR-C) History of aortic valve replacement with bioprosthetic valve Onset Date: 06/26/22 Z95.3 Tissue , Inspiris #[address] @ [facility] [address] Jacob Farooq 06/26/22 History of ascending aorta repair Onset Date: 06/26/22 Z98.890 Aortoplasty @ [facility] Dr. Jacob Black 06/26/22 History of Z98.891 History of rotator cuff surgery Z98.890 Hx of colonoscopy Z98.890 Status post patent foramen ovale closure Onset Date: 06/26/22 Z87.74 closed primarily with running prolene suture @ [facility] Dr. Jacob Black 06/26/22 - Family History Summary Family History: Family History (Last Reviewed 08/04/22 @ 09:14 by Nathan Hastings PARTS SALES ADVISOR, PARTS SALES ADVISOR-C) Mother Hypertension Diabetes Sister Heart valve replaced Aortic aneurysm Social History - Smoking History Smoking Status: Never smoker Hx Tobacco Use: No - Alcohol Use Alcohol Usage: Yes - occasional - Substance Abuse Hx Substance Use: No - Occupation Occupation (List type of work in comments):: Employed Hours worked per day:: 8 - Hobbies, Recreation, Social Activities Hobbies: None Recreational Activities: I am able to engage in all my recreational activities Social Environment - Status Marital Status: - Current Living Arrangements Living Environment:: Spouse - Children How many children do you have?: 1 Do any of your children live nearby?: No - Safety Do you feel safe in your surroundings?: Yes - Assistance Do you need any assistance at home?: no Review of Systems - Review of Systems Hints: Right click = Denies (Slash). Left click = Reports ([place]) Review of Present Symptoms: Reports: Shortness of Breath with Exertion, Operative Discomfort, Fatigue, Appetite - Normal, Appetite - Special Diet, Sleep - Normal. Denies: Shortness of Breath at Rest, PVD, Angina, Wound Healing, Dizziness/Lightheadedness, Heart Arrhythmia/Irregularities, Sexual Changes - Pain Is Patient Pain Free?: No Pain Location: other - incisional Pain Level: 09/25 Risk Factor Assessment - Vital Signs Pulse Ox: 97 - Pulse Pulse Rate: 91 Pulse Rhythm: Regular - Hypertension Blood Pressure Sitting - Left Arm: 100/70 - Diabetes Nutrition Referral for Diabetes: No - Obesity Height: 5 ft 5 in Weight:: 77.564 kg Weight in Pounds: 171.0 lbs Body Mass Index (BMI): 28.4 Nutritional Referral for Obesity: No - declines - Physical Inactivity Physical Inactivity: Reg Exercise 30 min/day - using treadmill at home - Risk Stratification Risk Guidelines: Lowest Risk: Risk Factor for Smoking, Moderate Risk: Risk Factor for Dyslipidemia, Risk Factor for Diabetes, Risk Factor for Obesity, Risk Factor for Sedentary Lifestyle, Risk Factor for Depression, Highest Risk: Risk Factor for Hypertension - Family History Family History: Family History (Last Reviewed 08/04/22 @ 09:14 by Nathan Hastings PARTS SALES ADVISOR, PARTS SALES ADVISOR-C) Mother Hypertension Diabetes Sister Heart valve replaced Aortic aneurysm Motivation - Motivation to Participate On a scale of 1 to 10, how prepared are you to commit to attending program?: 10 What do you see as barriers to successfully being able to complete the program?: nothing What do you see as the benefits of succesfully completing the program? In other words, what do you hope to get out of participating in the program?: more energy Are there issues you are dealing with that will interfere with completing the program?: no Do you have a spouse or signficant other, family or friends who will help support you to complete the program?: yes 08/17/22 1021 <Electronically signed by Dedrick PHILLIPS, RVT> Date Dedrick PHILLIPS RVYazan Outcome assessment reviewed. Exercise plan approved as documented. Treatment plan and goals support patient needs/abilities. Continue with current plan. I certify the patient demonstrates improvement and remains willing and capable of participation. the patient continues to benefit from cardiac rehab services/training. The patient may continue at current intensity, endurance and modality and progress per protocol. 08/30/22 1620 <Electronically signed by Devonte Cullen MD> Cosigner Signature: Date Devonte Cullen MD CC: Signed Asa Alba [facility] Work Phone: Start: 08-11-2022 End: 08-11-2022 Chest PA and Lateral Procedure Note: See Note; NOTES: [facility] Imaging Services [address] [place] [address] Chest PA and Lateral MR#: [id number] Acct: [id number] Name: JENARO WILSON Rep #: [id number] : 1960 F 62 From: Gómez Solorzano MD PCP: Asa Alba NP-C Status: REG CLI Study: Chest PA and Lateral Date of Exam: 08/11/22 Exam# [id number] Ordering Dr: Nathan Hastings NP PARTS SALES ADVISOR-C STUDY: X-RAY CHEST REASON FOR EXAM: Female, 62 years old. left pleural effusion TECHNIQUE: PA and lateral COMPARISON: August 04, 2022 FINDINGS: Small left pleural effusion and left lower lobe atelectasis Postop change status post median sternotomy and valve replacement Normal size heart. Normal mediastinum and catherine. Normal visualized pulmonary arteries. Mildly calcified aortic arch and descending thoracic aorta. Normal visualized thoracic spine. Normal visualized ribs, clavicles, and shoulders. There is no demonstrated abnormality of the visualized soft tissue structures of the upper abdomen. There is slightly improved aeration in the left lower lobe since previous study RAD/Chest PA and Lateral IMPRESSION: Persistent small left pleural effusion and left lower lobe consolidation with slightly improved aeration since previous study. Electronically Signed: Gómez Solorzano MD at 21:55 EST , CC: CORDELIA Alba; CORDELIA Hastings Imaging Science Professor: Signed Asa Alba [employer] Work Phone: Start: 08-11-2022 Plain chest X-ray Dr. Hermosillo Fast Work Phone: Start: 08-04-2022 Plain chest X-ray Dr. Hermosillo Fast Work Phone: Start: 08-04-2022 End: 08-04-2022 Chest PA and Lateral Procedure Note: See Note; NOTES: [facility] Imaging Services [address] [place] [id number] Chest PA and Lateral MR#: [id number] Acct: [id number] Name: JENARO WILSON Rep #: [id number] : 1960 F 62 From: Leo antunez MD PCP: CORDELIA Paul Status: [facility] CLI Study: Chest PA and Lateral Date of Exam: 08/04/22 Exam# [id number] Ordering Dr: Nathan Hastings NP STUDY: X-RAY CHEST REASON FOR EXAM: Female, 62 years old. Cough, fever TECHNIQUE: PA and lateral views of the chest. COMPARISON: Comparison is made with prior study 05/06/2002. FINDINGS: Small left pleural effusion with left basilar atelectasis and/or infiltrate. There is no demonstrated pleural abnormality. Sternal cerclage wires are present from a prior sternotomy. Status post mitral valve replacement. Normal mediastinum and catherine. Normal visualized pulmonary arteries. Normal visualized aortic arch and descending thoracic aorta. There are degenerative changes of the visualized thoracic spine. Normal visualized ribs, clavicles, and shoulders. There is no demonstrated abnormality of the visualized soft tissue structures of the upper abdomen. RAD/Chest PA and Lateral IMPRESSION: Status post mitral valve replacement. New small left pleural effusion with left basilar atelectasis and/or infiltrate. Electronically Signed: Leo Guardado MD at 14:23 EST Reading Location ID and State: [address] [place] [address] , Service support , CC: CORDELIA Alba; CORDELIA Hastings Imaging Science Professor: Signed Asa Alba [employer] Work Phone: Start: 08-04-2022 End: 08-04-2022 Cardiology Visit Report Procedure Note: See Note; NOTES: [facility] 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 She established with us in March 2022 based upon concerns of dizziness as well as findings of aortic valve disease with the appearance of a bicuspid aortic valve with moderate to severe aortic valve stenosis. She states to the best of her knowledge she has been told she has had a murmur in the past but states it was never thought to be concerning and/or pursued. Thus she had not undergone cardiovascular evaluation. As part of her evaluation she had a transthoracic echocardiogram performed. She had a normal left ventricle with an LVEF of 65% with trivial MR/TR and a bicuspid appearing aortic valve with moderate to severe aortic valve stenosis with a peak aortic valve velocity of approximately 3.5 cm/s, mean gradient of approximately 28 mmHg, and an aortic valve area of approximately 0.7 cm???. She also was noted to have trivial ND and a mild to moderately dilated aortic root. She underwent open heart surgery on 06/26/[address] Farooq at [facility]. This resulted in aortic valve replacement with an Inspiris #23 tissue type aortic valve and ascending aorta aortoplasty and PFO closure. She denies chest, arm, jaw, or neck discomfort. She denies palpitations. She denies bilateral lower extremity edema. She denies claudication. She denies shortness of breath with activity, shortness of breath at rest, orthopnea, or PND. She states continual cough since surgery. She states multiple episodes of forceful cuff resulting in vomiting. She notes right sided chest pain with coughing. She states associated dizziness. She denies significant, sudden weight gain. She denies lightheadedness, near-syncope, or syncope. She denies blood in urine, blood in stool, or epistaxis. She states episode of temperature 100.3. She states two 3-4 episodes waking with sweat noted in her hair and t-shirt. She denies myalgia. She states ongoing fatigue. Her exercise level has remained stable. Overall, she feels better and less SOB since surgery. She no longer has appointments scheduled with [facility]. Intake Vital Signs 08/04/22 08:59 08/04/22 08:59 Height 5 ft 5 in 5 ft 5 in Weight: 171 lb BMI 28.4 BP 122/86 H Blood Pressure Location Lt brachial Position Sitting Respiration 18 Pulse 90 Pulse Source Monitor Pulse Oximetry (%) 95 Intake Visit Reasons: 2 M FU Patent Searcher Required: No Is patient in pain?: No Allergies No Known Allergies Allergy (Verified 08/04/22 09:00) Medications cholecalciferol (vitamin D3) 125 mcg (5,000 unit) tablet 125 mcg PO QWEEK 04/14/22 [History Confirmed 08/04/22] aspirin 81 mg chewable tablet 81 mg PO DAILY #1 TAB 04/16/22 [Rx Confirmed 08/04/22] acetaminophen 500 mg tablet 1,000 mg PO Q6H PRN pain #120 tabs 07/21/22 [Rx Confirmed 08/04/22] metoprolol succinate 25 mg tablet,extended release 24 hr 12.5 mg PO BID 08/04/22 [History Confirmed 08/04/22] Nurse's Note: Patient not sure of medications. [facility]LY [facility], [facility] Medical History AC (acromioclavicular) arthritis Alcohol use Arthritis Back pain Benign essential hypertension, age 0-18 Biceps tendonitis on right Bicuspid aortic valve Essential hypertension History of edema Hyperparathyroidism Hypertension Migraine headache Non-smoker Nonrheumatic aortic (valve) stenosis Partial tear of right rotator cuff Screen for colon cancer Syncope Tachycardia Vitamin D deficiency Surgical History History of aortic valve replacement with bioprosthetic valve ( 06/26/22) History of ascending aorta repair ( 06/26/22) History of History of rotator cuff surgery Hx of colonoscopy Status post patent foramen ovale closure ( 06/26/22) Family History Mother Hypertension Diabetes Sister Heart valve replaced Aortic aneurysm Social History Smoking Status: Never smoker alcohol intake: current alcohol intake frequency: holidays/special occasions only substance use type: does not use caffeine: No what type of physical activity do you participate in: other details: gym frequency: 1-2 times per week do you feel safe at home: Yes ROS Const Const: Positive for fatigue; Negative for weakness, body ache, fever(s) or chills ENT ENT: Positive for dizziness; Negative for Nosebleed/epistaxis Cardio Chest Pain: No Palpitations: No Edema: None Muscle aches with walking: None Resp Respiratory: Positive for Cough; Negative for SOB with activity, SOB at rest, SOB orthopnea SOB lying down or paroxysmal nocturnal dyspnea GI GI: Negative nausea, vomiting blood/hematemesis, bright, red blood in stools or black,tarry stools : Negative for hematuria or frequent nighttime urination/ nocturia Musc Musc: Negative for muscle aches/ myalgia Skin Skin: Negative non-healing lesions or rash Neuro Neuro: Positive for dizziness; Negative for lightheadedness, near syncope, syncope, orthostatic symptoms or weakness Endo Endo: Positive for fatigue Allergy Allergy/Immunology: Negative for rash Cardiology Exam Const Appearance: cooperative, healthy appearing, comfortable and no acute distress Nutritional Appearance: well nourished and overweight Orientation: alert, awake and oriented x3 Head Head: normal to inspection Ears: hearing grossly normal bilaterally Nose: external nose normal Face and Sinus: face symmetric Mouth: moist mucous membranes Eyes General: appearance normal, both eyes and all related structures Eyelids: eyelids normal EOM: EOM intact bilaterally Neck Neck: normal visual inspection and no JVD Carotids: normal carotid upstroke Chest Chest inspection: normal inspection of the chest, symmetric chest movement, midline sternotomy incision and normal respiratory effort; Negative cough Auscultation: Bilateral: Clear to Auscultation Sternotomy incision well healed. No drainage Cardio Rate: regular rate Rhythm: regular rhythm Heart sounds: S1 normal, S2 normal and murmur; Negative rub or gallop Murmur: Grade 1/6, soft and EMILY loudest primary aortic area GI GI: normal to inspection Neuro General: patient alert, patient awake, patient oriented x3 and CN's II-XI intact bilaterally Skin Skin: no rashes or lesions noted Extremities Pulses: Normal: Right Posterior Tibial Pulse, Left Posterior Tibial Pulse, Right Radial Pulse and Left Radial Pulse Lower Extremity Edema: None: Bilateral Psych Psychological: normal affect Supplemental Info Supplemental Information Echocardiogram: 01/09/2022 Interpretation Summary The study was technically difficult. Contrast injection was performed.??? Left ventricular systolic function is normal. The estimated ejection fraction is 65 %. Trivial mitral valve insufficiency. Trivial tricuspid valve insufficiency. Bicuspid aortic valve. Moderate - Severe Aortic Valve Stenosis. Trivial pulmonic valve insufficiency. Mild to moderately dilated aortic root. Unable to estimate RV systolic pressure/pulmonary artery pressure due to technically difficult study. Diastolic function is indeterminate. Heart catheterization from 05/19/2022: CONCLUSIONS Right heart pressures - borderline to mildly elevated The patient has pulmonary hypertension which is borderline - mild. Intracardiac shunting: None [place] Multivessel CAD (non obstructive) Aortic Valve Calcification- Severe RECOMMENDATIONS Risk factor modification Medical therapy Surgery consult for valvular disease CORONARY ANGIOGRAPHY DOMINANCE: Right Dominant LEFT HEART ASSESSMENT Left Ventricular Ejection Fraction: Not assessed RIGHT HEART ASSESSMENT Thermal CO: 5.02 Thermal CI: 2.65 Geo CO: 8.1 Geo CI: 4.27 PW: 15 11 PA: 32/14 21 RV: 15/02 13 RA: 05/26 6 PVR: 159 SVR: 1291 Right Heart pressures - elevated (borderline) Pulmonary Hypertension: borderline to mildly elevated. Pulmonary Hypertension: borderline to mildly elevated. Intracardiac shunting: None LEFT MAIN: Angiographically normal LEFT ANTERIOR DESCENDING ARTERY: Mild luminal irregularities CIRCUMFLEX ARTERY: Mild luminal irregularities RIGHT CORONARY ARTERY: Mild luminal irregularities VALVE FINDINGS: Aortic Valve Calcification - severe COMPLICATIONS No Complications Labs: LDL Cholesterol 97 mg/dL (0-130) HDL Cholesterol 66 mg/dL (40-) Triglycerides 105 mg/dL (-199) VLDL Cholesterol 21 mg/dL (5-40) Diagnostics: Electrocardiogram Cardiac Catheterization Chest X-Ray Pulmonary: No Data to Display Assessment and Plan Assessment and Plan (1) History of aortic valve replacement with bioprosthetic valve: Status: Acute Comment: Lulu Mcmillan #[address] [facility] [address] Jacob Farooq 06/26/22 Plan: She acknowledges improvement in symptoms since surgery. She appears to be recovering well. She continue with discomfort with coughing. She is agreeable to begin cardiac rehab. She will begin work in a few weeks on light duty once she has started rehab. 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 Overtime, hopefully by the end of rehab, she can return without restrictions. On account of episode of fever and continual cough, she was asked to undergo laboratory testing and chest x-ray to rule out any obvious signs of infection. She denies urinary symptoms. Hopefully her fever was a one time, isolated event. (2) Bicuspid aortic valve: Status: Resolved Comment: Lulu Mcmillan #[address] [facility] [address] Jacob Farooq 06/26/22 Plan: She is now status post tissue valve replacement. We will continue to monitor. She will continue with antibiotic propholaxis. (3) Nonrheumatic aortic (valve) stenosis: Status: Acute Comment: Mod-Severe per ECHO 01/09/22 Plan: Her bicuspid arctic valve appears to demonstrate findings compatible with moderate to severe aortic valve stenosis. She underwent a heart catheterization on 05/19/2022 that showed nonobstructive coronary artery disease. She was referred to Dr. Farooq of [facility] for valve evaluation. She is scheduled to undergo what she believes to be open heart surgery for valve replacement on June 26, 2022. (4) Essential hypertension: Status: Acute Plan: At this time, she will continue current medical therapy. We will adjust medications as necessary. (5) History of ascending aorta repair: Status: Acute Comment: Aortoplasty @ [facility] Dr. Jacob Black 06/26/22 Plan: Not complete postop echocardiogram per CTS team. She appears to be doing symptomatically well. She will proceed with cardiac rehab. (6) Status post patent foramen ovale closure: Status: Acute Comment: closed primarily with running prolene suture @ [facility] Dr. Jacob Black 06/26/22 Plan: This appears stable. She will proceed with cardiac rehab. We will continue to monitor. (7) Fever: Status: Acute Plan: To ensure no obvious signs of infection, she was asked to go laboratory testing and radiological testing. Depending on results, further recommendation will be made. (8) Cough: Status: Chronic Plan: She states she had a chronic cough prior to surgery. She is not on JILL inhibitor. She does not appear to be in a fluid volume overload state. To ensure no underlying pneumonia component, she was asked to undergo a chest x-ray. Based on results, further recommendation will be made. Orders: Orders Comprehensive Metabolic Profil Today R05.9 - Cough, unspecified, R50.9 - Fever, unspecified CBC W/Diff, Automated Today R05.9 - Cough, unspecified, R50.9 - Fever, unspecified Chest PA and Lateral Today R05.9 - Cough, unspecified, R50.9 - Fever, unspecified Plan Details Additional Comments: Thank you for allowing us to participate in the patients plan of care, if you have any questions please do not hesitate to call. This note was generated using a voice recognition system and there may be incorrect words, spelling or punctuation that were not noted when reviewing the office note prior to saving. Portions of this documentation were copied and pasted from previous office visit notes to provide a cohesive continuity of the history. The note has been reviewed, edited, and updated, as necessary. Follow Up: [facility] office appointment (July 07?) [facility] testing (July 07?) Return to work (08/24/22- light duty) office appointment (Prior to 08/24/22 can use urgent if needed) 3 Months (PARTS SALES ADVISOR/PA) Keep as is (PFM) Coding Level of Care Code Off vis,est,level 4 Diagnoses History of aortic valve replacement with bioprosthetic valve Z95.3 Bicuspid aortic valve Q23.1 Nonrheumatic aortic (valve) stenosis I35.0 Essential hypertension I10 History of ascending aorta repair Z98.890 Status post patent foramen ovale closure Z87.74 Fever R50.9 Cough R05.9 Coding Level of Care Code Off vis,est,level 4 Diagnoses History of aortic valve replacement with bioprosthetic valve Z95.3 Bicuspid aortic valve Q23.1 Nonrheumatic aortic (valve) stenosis I35.0 Essential hypertension I10 History of ascending aorta repair Z98.890 Status post patent foramen ovale closure Z87.74 Fever R50.9 Cough R05.9 08/04/22 1334 <Electronically signed by Nathan Hastings NP, NP-C> Date Nathan Hastings NP PARTS SALES ADVISOR-C Cosigner Signature: Date (if applicable) CC: PARTS SALES ADVISOR-C Asa Alba [facility] Work Phone: Start: 07-07-2022 Radiologic exam chest 2 views Jacob Farooq MD Work Phone: Start: 06-24-2022 Echocardiography JACOB FAROOQ Start: 06-24-2022 Antibody screen JACOB FAROOQ Comment on above: Order Comment: Specimen Type: BLOOD SPEC IMENOrdering Facility: [facility] Address: [address] [place] [id number] Performed By: #### T [id number] ####CC MAIN B[facility] [id number] [place] [id number] [id number] [place] Start: 06-24-2022 Spmtry w/vc expiratory moe w/wo mxml vol vntj Jacob Farooq MD Work Phone: Start: 06-24-2022 Ct angiography chest w/contrast/noncontrast Jacob Farooq MD Work Phone: Start: 06-24-2022 Creatinine [Mass/volume] in Serum or Plasma [facility] Provider Start: 05-29-2022 End: 05-29-2022 Cardiology Visit Report Procedure Note: See Note; NOTES: [facility] 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 She established with us in March 2022 based upon concerns of dizziness as well as findings of aortic valve disease with the appearance of a bicuspid aortic valve with moderate to severe aortic valve stenosis. She states to the best of her knowledge she has been told she has had a murmur in the past but states it was never thought to be concerning and/or pursued. Thus she had not undergone cardiovascular evaluation until recently. As part of her evaluation she had a transthoracic echocardiogram performed. She had a normal left ventricle with an LVEF of 65% with trivial MR/TR and a bicuspid appearing aortic valve with moderate to severe aortic valve stenosis with a peak aortic valve velocity of approximately 3.5 cm/s, mean gradient of approximately 28 mmHg, and an aortic valve area of approximately 0.7 cm???. She also was noted to have trivial ND and a mild to moderately dilated aortic root. Patient acknowledges chest pain described as sharp with gradual onset and lasts for 2 hours. This is located midsternal and left chest and does not radiate to arm, jaw, or neck. Precipitating factors include walking and waiting for an elevator. Relieving factors include rest. The pain is not associated with shortness of breath, nausea, vomiting, lightheadedness, confusion, presyncope, syncope, abdominal symptoms. She does acknowledge prior to this event pushing a cart at work. She denies palpitations, bilateral lower extremity edema, claudication, shortness of breath with activity, shortness of breath at rest, orthopnea, cough, lightheadedness, dizziness, near-syncope, or syncope. She acknowledges fatigue. Intake Vital Signs 04/16/22 11:11 05/19/22 07:43 05/29/22 10:00 05/29/22 10:00 Height 5 ft 5 in 5 ft 5 in 5 ft 5 in 5 ft 5 in Weight: 181 lb 180 lb BMI 29.9 BP 100/70 Blood Pressure Location Lt brachial Position Sitting Respiration 16 Pulse 69 Pulse Source Monitor Intake Visit Reasons: 6 wk fu Patent Searcher Required: No Accompanied by: Is patient in pain?: No Allergies No Known Allergies Allergy (Verified 05/29/22 10:05) Medications amlodipine 5 mg tablet 5 mg PO DAILY 07/25/21 [History Confirmed 05/29/22] cholecalciferol (vitamin D3) 125 mcg (5,000 unit) tablet 125 mcg PO QWEEK 04/14/22 [History Confirmed 05/29/22] aspirin 81 mg chewable tablet 81 mg PO DAILY #1 TAB 04/16/22 [Rx Confirmed 05/29/22] potassium chloride 20 mEq tablet,extended release 20 meq PO DAILY 05/12/22 [History Confirmed 05/29/22] hydrochlorothiazide 12.5 mg tablet 12.5 mg PO DAILY 05/29/22 [History Confirmed 05/29/22] Ejection fraction %: 65 to 70 [facility] Medical History AC (acromioclavicular) arthritis Alcohol use Arthritis Back pain Benign essential hypertension, age 0-18 Biceps tendonitis on right Bicuspid aortic valve Essential hypertension History of edema Hyperparathyroidism Hypertension Migraine headache Non-smoker Nonrheumatic aortic (valve) stenosis Partial tear of right rotator cuff Screen for colon cancer Syncope Tachycardia Vitamin D deficiency Surgical History History of History of rotator cuff surgery Hx of colonoscopy Family History Mother Hypertension Diabetes Sister Heart valve replaced Aortic aneurysm Social History Smoking Status: Never smoker alcohol intake: current alcohol intake frequency: holidays/special occasions only substance use type: does not use caffeine: No what type of physical activity do you participate in: other details: gym frequency: 1-2 times per week do you feel safe at home: Yes ROS Const Const: Positive for fatigue; Negative for weakness, headache(s), frequent falls, difficulty sleeping or excessive sweating Eyes Eyes: Negative for loss of peripheral vision, transient loss of vision, blurry vision, double vision or tunnel vision ENT ENT: Negative for headache(s), dizziness, Nosebleed/epistaxis or balance problems Cardio Chest Pain: Yes Frequency: other (Episode of chest pain on Wednesday) Character: sharp Onset: other (Walking, waiting on elevator. Earlier in day was pushing carts at work) Location: mid sternal and left chest Duration: hours (couple of hours) Relieving: rest Palpitations: No Edema: None Muscle aches with walking: None Resp Respiratory: Positive for snoring; Negative for SOB with activity, SOB at rest, SOB orthopnea SOB lying down, Cough or paroxysmal nocturnal dyspnea GI GI: Negative nausea, vomiting, heartburn or black,tarry stools : Negative for hematuria Musc Musc: Positive for joint pain (back pain); Negative for muscle aches/ myalgia, muscle weakness or balance problems Skin Skin: Negative non-healing lesions, rash or unusual bruising Neuro Neuro: Negative for dizziness, lightheadedness, near syncope, syncope, frequent falls, headache(s), weakness, blurry vision, double vision or lack of coordination Luis F Hematologic/Lymphatic: Negative for easy bleeding or easy bruising Endo Endo: Positive for fatigue; Negative for excessive sweating or increased thirst/drinking Psych Psych: Negative for anxiety or depression Allergy Allergy/Immunology: Negative for hives and Negative for rash Cardiology Exam Const Appearance: cooperative, healthy appearing, comfortable and no acute distress Nutritional Appearance: well nourished and overweight Orientation: alert, awake and oriented x3 Head Head: normal to inspection Ears: hearing grossly normal bilaterally Nose: external nose normal Face and Sinus: face symmetric Mouth: moist mucous membranes Eyes General: appearance normal, both eyes and all related structures Eyelids: eyelids normal EOM: EOM intact bilaterally Neck Neck: normal visual inspection and no JVD Carotids: normal carotid upstroke Chest Chest inspection: normal inspection of the chest, symmetric chest movement and normal respiratory effort; Negative cough Auscultation: Bilateral: Clear to Auscultation Cardio Rate: regular rate Rhythm: regular rhythm Heart sounds: S1 normal, S2 normal and murmur; Negative rub or gallop Murmur: Grade 2/6, soft and EMILY loudest primary aortic area GI GI: normal to inspection Neuro General: patient alert, patient awake, patient oriented x3 and CN's II-XI intact bilaterally Skin Skin: no rashes or lesions noted Extremities Pulses: Normal: Right Posterior Tibial Pulse, Left Posterior Tibial Pulse, Right Radial Pulse and Left Radial Pulse Lower Extremity Edema: None: Bilateral Psych Psychological: normal affect Supplemental Info Supplemental Information Echocardiogram: 01/09/2022 Interpretation Summary The study was technically difficult. Contrast injection was performed.??? Left ventricular systolic function is normal. The estimated ejection fraction is 65 %. Trivial mitral valve insufficiency. Trivial tricuspid valve insufficiency. Bicuspid aortic valve. Moderate - Severe Aortic Valve Stenosis. Trivial pulmonic valve insufficiency. Mild to moderately dilated aortic root. Unable to estimate RV systolic pressure/pulmonary artery pressure due to technically difficult study. Diastolic function is indeterminate. Heart catheterization from 05/19/2022: CONCLUSIONS Right heart pressures - borderline to mildly elevated The patient has pulmonary hypertension which is borderline - mild. Intracardiac shunting: None [place] Multivessel CAD (non obstructive) Aortic Valve Calcification- Severe RECOMMENDATIONS Risk factor modification Medical therapy Surgery consult for valvular disease CORONARY ANGIOGRAPHY DOMINANCE: Right Dominant LEFT HEART ASSESSMENT Left Ventricular Ejection Fraction: Not assessed RIGHT HEART ASSESSMENT Thermal CO: 5.02 Thermal CI: 2.65 Geo CO: 8.1 Geo CI: 4.27 PW: 11 PA: /14 21 RV: 15/02 13 RA: 05/26 6 PVR: 159 SVR: 1291 Right Heart pressures - elevated (borderline) Pulmonary Hypertension: borderline to mildly elevated. Pulmonary Hypertension: borderline to mildly elevated. Intracardiac shunting: None LEFT MAIN: Angiographically normal LEFT ANTERIOR DESCENDING ARTERY: Mild luminal irregularities CIRCUMFLEX ARTERY: Mild luminal irregularities RIGHT CORONARY ARTERY: Mild luminal irregularities VALVE FINDINGS: Aortic Valve Calcification - severe COMPLICATIONS No Complications Labs: LDL Cholesterol 97 mg/dL (0-130) HDL Cholesterol 66 mg/dL (40-) Triglycerides 105 mg/dL (-199) VLDL Cholesterol 21 mg/dL (5-40) Diagnostics: Electrocardiogram Echocardiogram Cardiac Catheterization Chest X-Ray Pulmonary: No Data to Display Assessment and Plan Assessment and Plan (1) Bicuspid aortic valve: Status: Acute Plan: She does appear to have findings compatible with a bicuspid aortic valve. She states that her sister was actually diagnosed with a similar type problem at a relatively young age and subsequently required valvular heart surgery. She was reminded importance of having children screened for bicuspid valve. Her one episode of chest pain is thought to be musculoskeletal related. (2) Nonrheumatic aortic (valve) stenosis: Status: Acute Comment: Mod-Severe per ECHO 01/09/22 Plan: Her bicuspid arctic valve appears to demonstrate findings compatible with moderate to severe aortic valve stenosis. She underwent a heart catheterization on 05/19/2022 that showed nonobstructive coronary artery disease. She was referred to Dr. Farooq of [facility] for valve evaluation. She is scheduled to undergo what she believes to be open heart surgery for valve replacement on June 26, 2022. (3) Essential hypertension: Status: Acute Plan: At this time, she will continue current medical therapy. We will adjust medications as necessary. Plan Details Additional Comments: We will see her back approximately 1-1/2 months after surgery to ensure progressing as expected and to proceed with cardiac rehab. Thank you for allowing us to participate in the patients plan of care, if you have any questions please do not hesitate to call. This note was generated using a voice recognition system and there may be incorrect words, spelling or punctuation that were not noted when reviewing the office note prior to saving. Portions of this documentation were copied and pasted from previous office visit notes to provide a cohesive continuity of the history. The note has been reviewed, edited, and updated, as necessary. Follow Up: Mid July (PARTS SALES ADVISOR/PA) 12-15 Months (PFM) Coding Level of Care Code Off vis,est,level 3 Diagnoses Bicuspid aortic valve Q23.1 Nonrheumatic aortic (valve) stenosis I35.0 Essential hypertension I10 Coding Level of Care Code Off vis,est,level 3 Diagnoses Bicuspid aortic valve Q23.1 Nonrheumatic aortic (valve) stenosis I35.0 Essential hypertension I10 05/29/22 1052 <Electronically signed by Nathan STOREY> Date Nathan STOREY Cosigner Signature: Date (if applicable) CC: CORDELIA Alba SCUBA INSTRUCTOR Work Phone: Start: 05-19-2022 End: 05-19-2022 Cardiac Cath Diagnostic Procedure Note: See Note; NOTES: [facility] Imaging Services [address] [place] [id number] Cardiac Cath Diagnostic MR#: [id number] Acct: [id number] Name: JENARO WILSON Rep #: [id number] : 1960 61 From: Devonte Cullen MD PCP: CORDELIA Paul Status:PRE [facility] Patient Name: JENARO WILSON Study Date: 05/19/2022 Performing: Devonte Cullen MD Ht: 65 inches 165.1 cm : 1960 Wt: 181 lbs 82.1 kg Age: 61 Gender: female BSA: 1.9 PROCEDURE(S) PERFORMED DC06-([id number])RHC/LHC/COR CLINICAL PROFILE AND INDICATIONS Indications: Valvular Disease, Pre-Operative Evaluation Heart Failure: None Stress/Imaging Stress/Image Study Performed: No Angina Classification Anginal Classification w/in 2 Weeks: No symptoms CAD Presentations: No Sxs, no angina. CONCLUSIONS Right heart pressures - borderline to mildly elevated The patient has pulmonary hypertension which is borderline - mild. Intracardiac shunting: None [place] Multivessel CAD (non obstructive) Aortic Valve Calcification- Severe RECOMMENDATIONS Risk factor modification Medical therapy Surgery consult for valvular disease DESCRIPTION OF PROCEDURE The patient arrived to the procedure lab. The risks and benefits of the procedure as well as a full description of our services here and current unavailability of surgical backup were fully explained to the patient and/or their significant other prior to the catheterization. The Timeout was completed, verifying the correct patient and procedure. The patient's procedural site was prepped and draped in the usual fashion. Local anesthetic was given subcutaneously to right brachial region with Lidocaine 2%. Local anesthetic was given subcutaneously to right groin region with Lidocaine 2%. Using a modified Seldinger technique, arterial access was obtained via the right radial artery, a 6Fr sheath was inserted. Venous access was obtained via the right brachiocephalic vein, a 7Fr sheath was inserted. - sheath will not flush. Venous access was obtained via the right femoral vein, a 7Fr sheath was inserted. A 7Fr thermal dilution catheter was inserted and right heart pressures were recorded, it was then advanced to PA position for cardiac outputs. Thermal dilution cardiac outputs were then recorded. O2 saturations were then obtained. Left Coronary Artery selective angiography was performed in multiple views using a 5 Fr. 4.0 Thayer catheter. Right Coronary Artery selective angiography was then performed in multiple views using a 6 Fr. JR 4. The Thermal dilution catheter was then removed.The venous sheath was then pulled and manual compression applied until hemostasis achieved - brachial. The arterial sheath was pulled and manual compression applied until hemostasis is achieved. - femoral. The arterial sheath was pulled and a TR Band was applied for hemostasis 10cc air CORONARY ANGIOGRAPHY DOMINANCE: Right Dominant LEFT HEART ASSESSMENT Left Ventricular Ejection Fraction: Not assessed RIGHT HEART ASSESSMENT Thermal CO: 5.02 Thermal CI: 2.65 Geo CO: 8.1 Geo CI: 4.27 PW: 11 PA: 32/14 21 RV: 31/7 13 RA: 05/26 6 PVR: 159 SVR: 1291 Right Heart pressures - elevated (borderline) Pulmonary Hypertension: borderline to mildly elevated. Pulmonary Hypertension: borderline to mildly elevated. Intracardiac shunting: None LEFT MAIN: Angiographically normal LEFT ANTERIOR DESCENDING ARTERY: Mild luminal irregularities CIRCUMFLEX ARTERY: Mild luminal irregularities RIGHT CORONARY ARTERY: Mild luminal irregularities VALVE FINDINGS: Aortic Valve Calcification - severe COMPLICATIONS No Complications PROCEDURE MEDICATIONS Fentanyl 50 mcg IV Versed 1 mg IV Fentanyl 50 mcg IV Versed 1 mg IV Oxygen: 2 L/min via nasal cannula Heparin given IA 05/19/2022 09:51:23 Verapamil 2.5mg, Ntg 100mcgs, 3000 units of Heparin given IA 05/19/2022 09:51:23 SUMMARY OF HEMODYNAMIC DATA Time AIR REST ECG 07:49:39 RA 11/8 (6) SV 09:48:19 RV 31/7, 13 09:48:41 PA 32/14 (21) PA 09:49:42 PW 13/15 (11) PV 09:50:41 ECG 09:58:32 ECG 09:58:52 ECG 09:59:17 AO 110/71 (87) SA 10:10:30 Type SV CO (l/m) CI (l/m/ HR Time AIR REST Thermal 65.20 5.02 2.65 77 07:49:39 Geo 105.20 8.10 4.27 77 07:49:39 Label % O2 Pres/Loc Time AIR REST PA 70 PA 10:25:14 AO 96 PV 10:25:21 SVC 72 10:25:35 IVC 80 SV 10:25:47 Signed By Devonte Cullen MD On 05/19/2022 11:11:48 Devonte Cullen MD 05/19/22 1112 Date Devonte Cullen MD Cosigner Signature: Date (if indicated) CC: PARTS SALES ADVISORShantal Alba; Dr. Devonte Cullen MD Date Dictated: 05/19/22 0856 Date Transcribed: 05/19/22 1111 Imaging Science Professor: PM Signed Asa Alba [facility] Work Phone: Start: 05-18-2022 End: 11-01-2022 History and Physical Exam Procedure Note: See Note; NOTES: [facility] Medical Records Department [address] [place] [address] History Physical Exam 05/18/22 1801 MR#: [id number] Acct: [id number] Name: JENARO WILSON Rep #: [id number] : 1960 61 From: Devonte Cullen MD PCP: CORDELIA Paul Status:PRE [facility] Location: [facility] History and Physical Date of Admission: 05/19/22 [facility] [address] [place] [address] JENARO WILSON : 1960 Provider: Dr. Devonte Cullen MD Age/Sex:??? 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 She states to the best of her knowledge she has been told she has had a murmur in the past but states it was never thought to be concerning and/or pursued.??? Thus she had not undergone cardiovascular evaluation until recently. Recently she had been noting concerns of dizziness and/or feeling off balance.??? She did not believe she was actually experiencing vertigo.??? She had no other associated focal motor or sensory deficits. She had not necessarily been complaining of chest discomfort.??? She may have noted some element of shortness of breath and dyspnea with activity.??? There have been no episodes of acute orthopnea or PND or worsening peripheral pitting edema.??? She has not had syncope.??? She does state at times that she has had indigestion.??? She has attributed this to noncardiac related issues. She was evaluated by her PCP.??? She had undergone a twelve-lead ECG it appears on 12-31-2021.??? It appears she was in sinus rhythm with no acute changes. She did have an ECG performed in the office today to evaluate for any dynamic changes.??? Again she was in sinus rhythm with no acute ECG changes. As part of her evaluation she had a transthoracic echocardiogram performed.??? She had a normal left ventricle with an LVEF of 65% with trivial MR/TR and a bicuspid appearing aortic valve with moderate to severe aortic valve stenosis with a peak aortic valve velocity of approximately 3.5 cm/s, mean gradient of approximately 28 mmHg, and an aortic valve area of approximately 0.7 cm???.??? She also was noted to have trivial ND and a mild to moderately dilated aortic root. She has been referred for further cardiovascular evaluation. Intake Vital Signs ??? 08/04/2210:31 04/16/2211:08 04/16/2211:11 Height 5 ft 4 in 5 ft 4 in 5 ft 5 in Weight: ? 181 lb 5 oz BMI ? 30.2 BP ? 128/98 H Blood Pressure Location ? Lt brachial Position ? Sitting Respiration ? 16 Pulse ? 84 Pulse Source ? Auscultation Intake Visit Reasons:???aortic stenosis/ref. manchak Patent Searcher Required: No Accompanied by: Allergies No Known Allergies Allergy (Verified 04/16/22 11:11) Medications amlodipine 5 mg tablet 5 mg PO DAILY 07/25/21 [History Confirmed 04/16/22] cholecalciferol (vitamin D3) 125 mcg (5,000 unit) tablet 125 mcg PO QWEEK 04/14/22 [History Confirmed 04/16/22] aspirin 81 mg chewable tablet 81 mg PO DAILY #1 TAB 04/16/22 [Rx Confirmed 04/16/22] hydrochlorothiazide 25 mg tablet 12.5 mg PO DAILY 04/16/22 [History Confirmed 04/16/22] PFSH Medical History??? AC (acromioclavicular) arthritis Alcohol use Arthritis Back pain Benign essential hypertension, age 0-18 Biceps tendonitis on right Bicuspid aortic valve Essential hypertension History of edema Hyperparathyroidism Hypertension Migraine headache Non-smoker Nonrheumatic aortic (valve) stenosis Partial tear of right rotator cuff Screen for colon cancer Syncope Tachycardia Vitamin D deficiency Surgical History??? History of History of rotator cuff surgery Hx of colonoscopy Family History??? Mother Hypertension DiabetesSister Heart valve replaced Aortic aneurysm Social History??? Smoking Status:??? Never smoker alcohol intake:??? current alcohol intake frequency: holidays/special occasions only substance use type:??? does not use caffeine:??? No what type of physical activity do you participate in:??? other details: gym frequency:??? 1-2 times per week do you feel safe at home:??? Yes ROS Const Const: Positive for fatigue (increased); Negative for weakness, body ache, fever(s), headache(s), chills, frequent falls, night sweats, daytime sleepiness, difficulty sleeping, excessive sweating, weight gain, weight loss, increased appetite, poor appetite, anorexia or other Eyes Eyes: Negative for blurry vision or double vision ENT ENT: Positive for dizziness (off balance; random); Negative for headache(s) or balance problems Cardio Chest Pain: Yes (occasional) Character: dull and squeezing Onset: exercise Location: mid sternal Duration: minutes (10-15) Relieving: rest Palpitations: Yes (occasional; noticed increase in frequency) feels like its: other (flutter) Edema: None Muscle aches with walking: None Resp Respiratory: Positive for SOB with activity (slight) and Cough (occasional productive in manjit am; dry); Negative for SOB at rest, SOB orthopnea SOB lying down, Coughing up blood/hemoptysis, chest congestion, pain on inspiration, snoring, stridor, wheezing, crackles, paroxysmal nocturnal dyspnea or other Musc Musc: Negative for muscle aches/ myalgia, muscle weakness, joint pain or balance problems Neuro Neuro: Positive for dizziness (off balance; random) and near syncope; Negative for lightheadedness, syncope, orthostatic symptoms, frequent falls, headache(s), weakness, confusion, memory loss, restless legs, blurry vision, double vision, vertigo, seizures, lack of coordination or other Endo Endo: Positive for fatigue (increased); Negative for excessive sweating Cardiology Exam Const Appearance: cooperative, healthy appearing, comfortable, no acute distress, well developed and well groomed Nutritional Appearance: overweight Orientation: alert, awake and oriented x3 Head Head: normal to inspection, normocephalic and atraumatic Ears: hearing grossly normal bilaterally Nose: external nose normal Face and Sinus: face symmetric Eyes Eyelids: eyelids normal Conjunctivae: conjunctivae normal Pupils: PERRL EOM: EOM intact bilaterally Neck Neck: normal visual inspection and full ROM Carotids: delayed carotid upstroke Chest Chest inspection: normal inspection of the chest, symmetric chest movement and normal respiratory effort Auscultation: Bilateral: Clear to Auscultation Cardio Palpation: normal PMI Rate: regular rate Rhythm: regular rhythm Heart sounds: S1 normal, murmur and diminished A2 Murmur: Grade 3/6, harsh, late systolic, crescendo, LVOT, sternal notch and radiates to carotids GI GI: normal to inspection, soft and bowel sounds present Neuro General: patient alert, patient awake, patient oriented x3, gait normal and moves all extremities Skin Skin: no rashes or lesions noted Extremities Pulses: Normal: Right Dorsalis Pedis Pulse, Left Dorsalis Pedis Pulse, Right Posterior Tibial Pulse, Left Posterior Tibial Pulse, Right Radial Pulse and Left Radial Pulse Lower Extremity Edema: None: Bilateral Psych Psychological: normal affect Supplemental Info Supplemental Information Echocardiogram: 01/09/2022 Interpretation Summary The study was technically difficult. Contrast injection was performed. ??? Left ventricular systolic function is normal. The estimated ejection fraction is 65 %. Trivial mitral valve insufficiency. Trivial tricuspid valve insufficiency. Bicuspid aortic valve. Moderate - Severe Aortic Valve Stenosis. Trivial pulmonic valve insufficiency. Mild to moderately dilated aortic root. Unable to estimate RV systolic pressure/pulmonary artery pressure due to technically difficult study. Diastolic function is indeterminate. Labs: ? LDL Cholesterol 97 mg/dL (0-130) ? HDL Cholesterol 66 mg/dL (40-) ? Triglycerides 105 mg/dL (-199) ? VLDL Cholesterol 21 mg/dL (5-40) Diagnostics: ? Electrocardiogram ? Echocardiogram ? Chest X-Ray ??? Pulmonary: ? No Data to Display Assessment and Plan Assessment and Plan (1) Bicuspid aortic valve: ?Status:???Acute ?Plan: She does appear to have findings compatible with a bicuspid aortic valve. She states that her sister was actually diagnosed with a similar type problem at a relatively young age and subsequently required valvular heart surgery. (2) Nonrheumatic aortic (valve) stenosis: ?Status:???Acute ?Comment: Mod-Severe per ECHO 01/09/22 ?Plan: Her bicuspid arctic valve appears to demonstrate findings compatible with moderate to severe aortic valve stenosis. Based upon her symptoms and findings it would not be unreasonable to further evaluate her in the cardiac catheterization laboratory. This would be in preparation for CT surgery evaluation for valvular repair/replacement. (3) Essential hypertension: ?Status:???Acute ?Plan: She does have a history of hypertension. She states her medications have been adjusted. For the moment she will continue her ImmTher be. (4) Dizziness: ?Status:???Acute ?Plan: She has had episodes of dizziness.??? It is unclear as to the exact etiology of these episodes. She will be evaluated with an ambulatory event monitor and attempt to correlate any concerning changes with rate and/or rhythm superimposed upon her valvular related issues that would correlate with these findings. ? Orders: Orders 12 Lead EKG performed by [facility] Today I10 - Essential (primary) hypertension, R00.0 - Tachycardia, unspecified ??? Left Right Heart Cath Today I10 - Essential (primary) hypertension, I35.0 - Nonrheumatic aortic (valve) stenosis, Q23.1 - Congenital insufficiency of aortic valve, R00.0 - Tachycardia, unsp ecified, R00.2 - Palpitations, R42 - Dizziness and giddiness ??? 30 Day Event Recorder Preventi Today I10 - Essenti al (primary) hypertension, I35.0 - Nonrheumatic aortic (valve) stenosis, Q23.1 - Congenital insufficiency of aortic valve, R00.0 - Tachycardia, unspecified, R00.2 - Palpitations, R42 - Dizziness and giddiness ??? Basic Metabolic Profile (BMP) Today I10 - Essential (primary) hypertension, I35.0 - Nonrheumatic aortic (valve) stenosis, Q23.1 - Congenital insufficiency of aortic valve, R00.0 - Tachycardia, unspecified, R00.2 - Palpitations, R42 - Dizziness and giddiness ??? Partial Thromboplast Time Today I10 - Essential (primary) hypertension, I35.0 - Nonrheumatic aortic (valve) stenosis, Q23.1 - Congenital insufficiency of aortic valve, R00.0 - Tachycardia, unspecified, R00.2 - Palpitations, R42 - Dizziness and giddiness ??? Prothrombin Time w/INR Today I10 - Essential (primary) hypertension, I35.0 - Nonrheumatic aortic (valve) stenosis, Q23.1 - Congenital insufficiency of aortic valve, R00.0 - Tachycardia, unspecified, R00.2 - Palpitations, R42 - Dizziness and giddiness ??? CBC W/Diff, Automated Today I10 - Essential (primary) hypertension, I35.0 - Nonrheumatic aortic (valve) stenosis, Q23.1 - Congenital insufficiency of aortic valve, R00.0 - Tachycardia, unspecified, R00.2 - Palpitations, R42 - Dizziness and giddiness ? Medications: New aspirin 81 mg??? PO DAILY 1 TAB 0RF ? Plan Details Additional Comments: In the interim she will initiate medical management with aspirin 81 mg p.o. daily. The above was discussed with her and she was agreeable to this approach Thank you for allowing me to participate in the care of your patient.??? Please don't hesitate to call if any issues arise. This note was generated using a voice recognition system and there may be incorrect words, spelling or punctuation that were not noted when reviewing the office note prior to saving. Follow Up: ? 6 Weeks (PFM ) COVID (Procedure Consent) Procedure Criteria Procedure Criteria: Yes Elective The surgeon/proceduralist and patient have discussed in detail the risk of exposure to and/or potential harm posed by the COVID-19 virus with having a surgery/procedure at this time versus the risk of??? delaying the surgery/procedure. It is not possible to know either the risk of delaying the surgery or procedure or chance of getting an infection with perfect accuracy, but a joint decision was made between the patient and the surgeon/proceduralist ???to proceed at this time with the scheduled surgery/procedure as indicated on the consent form. Coding Level of Care Code Off vis,new,level 5 Diagnoses Bicuspid aortic valve??? Q23.1 Nonrheumatic aortic (valve) stenosis??? I35.0 Essential hypertension??? I10 Dizziness??? R42 Coding Level of Care Code Off vis,new,level 5 Diagnoses Bicuspid aortic valve??? Q23.1 Nonrheumatic aortic (valve) stenosis??? I35.0 Essential hypertension??? I10 Dizziness??? R42 Devonte Cullen MD CC: ??? CORDELIA Alba Assessment Plan Addt'l Comments Addendum: Date: 05-19-2022: The patient underwent subsequent ambulatory event monitor. This demonstrated sinus rhythm with PACs and PVCs. Based upon the patient's clinical history and objective findings as noted in the aforementioned H P it has been elected to proceed with additional evaluation with diagnostic cardiac catheterization. The procedure and risks have been discussed with the patient. She is agreeable to this approach. This note was generated using a voice recognition system and there may be incorrect words, spelling or punctuation that were not noted when reviewing the office note prior to saving. 05/19/22 0746 <Electronically signed by Devonte Cullen MD> Cosigner Signature (if applicable): CC: CORDELIA Alba; Dr. Devonte Cullen MD Signed Asa Alba [facility] Work Phone: Start: 05-18-2022 End: 05-19-2022 History and Physical Exam Procedure Note: See Note; NOTES: [facility] Medical Records Department [address] [place] [id number] History Physical Exam 05/18/22 1652 MR#: [id number] Acct: [id number] Name: JENARO WILSON Rep #: [id number] : 1960 61 From: Vianey De La Garza NP PARTS SALES ADVISOR-C PCP: CORDELIA Paul Status:PRE [facility] Location: [facility] Documented by User: Vianey De La Garza NP, PARTS SALES ADVISOR-C 05/18/22 16:58 History and Physical Date of Admission: 05/19/22 This is a 61-year-old white female who presents today for a left cardiac catheterization. She was consulted based upon concerns of dizziness as well as findings of aortic valve disease with the appearance of a bicuspid aortic valve with moderate to severe aortic valve stenosis.??? She states to the best of her knowledge she has been told she has had a murmur in the past but states it was never thought to be concerning and/or pursued.??? Thus she had not undergone cardiovascular evaluation until recently. Recently she had been noting concerns of dizziness and/or feeling off balance.??? She did not believe she was actually experiencing vertigo.??? She had no other associated focal motor or sensory deficits. She had not necessarily been complaining of chest discomfort.??? She may have noted some element of shortness of breath and dyspnea with activity.??? There have been no episodes of acute orthopnea or PND or worsening peripheral pitting edema.??? She has not had syncope.??? She does state at times that she has had indigestion.??? She has attributed this to noncardiac related issues. She was evaluated by her PCP.??? She had undergone a twelve-lead ECG it appears on 12-31-2021.??? It appears she was in sinus rhythm with no acute changes. She did have an ECG performed in the office today to evaluate for any dynamic changes.??? Again she was in sinus rhythm with no acute ECG changes. As part of her evaluation she had a transthoracic echocardiogram performed.??? She had a normal left ventricle with an LVEF of 65% with trivial MR/TR and a bicuspid appearing aortic valve with moderate to severe aortic valve stenosis with a peak aortic valve velocity of approximately 3.5 cm/s, mean gradient of approximately 28 mmHg, and an aortic valve area of approximately 0.7 cm???.??? She also was noted to have trivial ND and a mild to moderately dilated aortic root. Intake Vital signs: See EMR Allergies No Known Allergies Allergy (Verified 04/16/22 11:11) Medications amlodipine 5 mg tablet 5 mg PO DAILY 07/25/21 [History Confirmed 04/16/22] cholecalciferol (vitamin D3) 125 mcg (5,000 unit) tablet 125 mcg PO QWEEK 04/14/22 [History Confirmed 04/16/22] aspirin 81 mg chewable tablet 81 mg PO DAILY #1 TAB 04/16/22 [Rx Confirmed 04/16/22] hydrochlorothiazide 25 mg tablet 12.5 mg PO DAILY 04/16/22 [History Confirmed 04/16/22] PFSH Medical History??? AC (acromioclavicular) arthritis Alcohol use Arthritis Back pain Benign essential hypertension, age 0-18 Biceps tendonitis on right Bicuspid aortic valve Essential hypertension History of edema Hyperparathyroidism Hypertension Migraine headache Non-smoker Nonrheumatic aortic (valve) stenosis Partial tear of right rotator cuff Screen for colon cancer Syncope Tachycardia Vitamin D deficiency Surgical History??? History of History of rotator cuff surgery Hx of colonoscopy Family History Mother Hypertension DiabetesSister Heart valve replaced Aortic aneurysm Social History??? Smoking Status:??? Never smoker alcohol intake:??? current alcohol intake frequency: holidays/special occasions only substance use type:??? does not use caffeine:??? No what type of physical activity do you participate in:??? other details: gym frequency:??? 1-2 times per week do you feel safe at home:??? Yes ROS Const Const: Positive for fatigue (increased); Negative for weakness, body ache, fever(s), headache(s), chills, frequent falls, night sweats, daytime sleepiness, difficulty sleeping, excessive sweating, weight gain, weight loss, increased appetite, poor appetite, anorexia or other Eyes Eyes: Negative for blurry vision or double vision ENT ENT: Positive for dizziness (off balance; random); Negative for headache(s) or balance problems Cardio Chest Pain: Yes (occasional) Character: dull and squeezing Onset: exercise Location: mid sternal Duration: minutes (10-15) Relieving: rest Palpitations: Yes (occasional; noticed increase in frequency) feels like its: other (flutter) Edema: None Muscle aches with walking: None Resp Respiratory: Positive for SOB with activity (slight) and Cough (occasional productive in manjit am; dry); Negative for SOB at rest, SOB orthopnea SOB lying down, Coughing up blood/hemoptysis, chest congestion, pain on inspiration, snoring, stridor, wheezing, crackles, paroxysmal nocturnal dyspnea or other Musc Musc: Negative for muscle aches/ myalgia, muscle weakness, joint pain or balance problems Neuro Neuro: Positive for dizziness (off balance; random) and near syncope; Negative for lightheadedness, syncope, orthostatic symptoms, frequent falls, headache(s), weakness, confusion, memory loss, restless legs, blurry vision, double vision, vertigo, seizures, lack of coordination or other Endo Endo: Positive for fatigue (increased); Negative for excessive sweating Cardiology Exam Const Appearance: cooperative, healthy appearing, comfortable, no acute distress, well developed and well groomed Nutritional Appearance: overweight Orientation: alert, awake and oriented x3 Head Head: normal to inspection, normocephalic and atraumatic Ears: hearing grossly normal bilaterally Nose: external nose normal Face and Sinus: face symmetric Eyes Eyelids: eyelids normal Conjunctivae: conjunctivae normal Pupils: PERRL EOM: EOM intact bilaterally Neck Neck: normal visual inspection and full ROM Carotids: delayed carotid upstroke Chest Chest inspection: normal inspection of the chest, symmetric chest movement and normal respiratory effort Auscultation: Bilateral: Clear to Auscultation Cardio Palpation: normal PMI Rate: regular rate Rhythm: regular rhythm Heart sounds: S1 normal, murmur and diminished A2 Murmur: Grade 3/6, harsh, late systolic, crescendo, LVOT, sternal notch and radiates to carotids GI GI: normal to inspection, soft and bowel sounds present Neuro General: patient alert, patient awake, patient oriented x3, gait normal and moves all extremities Skin Skin: no rashes or lesions noted Extremities Pulses: Normal: Right Dorsalis Pedis Pulse, Left Dorsalis Pedis Pulse, Right Posterior Tibial Pulse, Left Posterior Tibial Pulse, Right Radial Pulse and Left Radial Pulse Lower Extremity Edema: None: Bilateral Psych Psychological: normal affect Supplemental Info Supplemental Information Echocardiogram: 01/09/2022 Interpretation Summary The study was technically difficult. Contrast injection was performed. ??? Left ventricular systolic function is normal. The estimated ejection fraction is 65 %. Trivial mitral valve insufficiency. Trivial tricuspid valve insufficiency. Bicuspid aortic valve. Moderate - Severe Aortic Valve Stenosis. Trivial pulmonic valve insufficiency. Mild to moderately dilated aortic root. Unable to estimate RV systolic pressure/pulmonary artery pressure due to technically difficult study. Diastolic function is indeterminate. Assessment Plan Assessment/Plan (1) Dizziness: (2) Palpitations: (3) Nonrheumatic aortic (valve) stenosis: (4) Bicuspid aortic valve: PLAN: Plan Follow up will be based upon findings from cardiac catheterization. Documented by User: Dr. Devonte Cullen MD 05/19/22 07:55 Assessment Plan Assessment/Plan (1) Dizziness: (2) Palpitations: (3) Nonrheumatic aortic (valve) stenosis: (4) Bicuspid aortic valve: Addt'l Comments Addendum: Please see duplicate H P dated the same date with addendum attached. This note was generated using a voice recognition system and there may be incorrect words, spelling or punctuation that were not noted when reviewing the office note prior to saving. 05/18/22 1658 <Electronically signed by Vianey STOREY> Cosigner Signature (if applicable): 05/19/22 0755 <Electronically signed by Devonte Cullen MD> CC: CORDELIA Alba; CORDELIA De La Garza; Dr. Devonte Cullen MD Signed Asa Alba [facility] Work Phone: Start: 05-06-2022 End: 05-06-2022 Chest PA and Lateral Procedure Note: See Note; NOTES: [facility] Services [address] [place] [address] Chest PA and Lateral MR#: [id number] Acct: [id number] Name: JENARO WILSON Rep #: [id number] : 1960 F 61 From: Tobias Kelly MD PCP: CORDELIA Paul Status: PRE [facility] Study: Chest PA and Lateral Date of Exam: 05/06/22 Exam# [id number] Ordering Dr: Devonte Cullen MD STUDY: X-RAY CHEST REASON FOR EXAM: Female, 61 years old. Heart cath TECHNIQUE: PA and lateral views of the chest. COMPARISON: 06/16/2020 [place] FINDINGS: The lungs are clear and expanded. There is no demonstrated pleural abnormality. Normal size heart. Normal mediastinum and catherine. Normal visualized pulmonary arteries. Normal visualized aortic arch and descending thoracic aorta. Normal visualized thoracic spine. Normal visualized ribs, clavicles, and shoulders. There is no demonstrated abnormality of the visualized soft tissue structures of the upper abdomen. RAD/Chest PA and Lateral IMPRESSION: Normal x-ray examination of the chest. Electronically Signed: Tobias Kelly MD at 10:00 EDT , CC: CORDELIA Alba; Dr. Devonte Cullen MD Imaging Science Professor: Signed Devonte Cullen MD Work Phone: Start: 05-06-2022 Plain chest X-ray CORDELIA Alba Work Phone: Start: 04-16-2022 End: 04-16-2022 12 Lead EKG performed by BMS Procedure Note: See Note; NOTES: [facility] [address] [place] [address] 12 Lead EKG performed by BMS 04/16/22 1108 MR#: [id number] Acct: [id number] Name: JENARO WILSON Rep #: [id number] : 1960 61 From: Devonte Cullen MD Attending Dr: Dr. Devonte Cullen MD Status: DE P AMB Ordering Dr: Devonte Cullen MD Date: 04/16/22 Location: [facility] Sex: F C Admitted: BMS/12 Lead EKG performed by [facility] ECG Report Interpretation S inus Rhythm Electronically signed on 04/16/2022 at 19:03 by Devonte Cullen Software Version [id number] 04/16/22 1908 Date Devonte Cullen MD CC: PARTS SALES ADVISORShantal Alba Date Dictated: 04/16/221107 Date Transcribed: 04/16/221107 Imaging Science Professor: PM Signed Devonte Cullen MD Work Phone: Start: 04-16-2022 End: 04-16-2022 Cardiology Visit Report Procedure Note: See Note; NOTES: [facility] [address] [place] [address]. [address] [place] [address] OFFICE VISIT Date of Service: 04/16/22 MR#: [id number] Acct: [id number] Name: JENARO WILSON Rep #: [id number] : 1960 Provider: Dr. 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 She states to the best of her knowledge she has been told she has had a murmur in the past but states it was never thought to be concerning and/or pursued. Thus she had not undergone cardiovascular evaluation until recently. Recently she had been noting concerns of dizziness and/or feeling off balance. She did not believe she was actually experiencing vertigo. She had no other associated focal motor or sensory deficits. She had not necessarily been complaining of chest discomfort. She may have noted some element of shortness of breath and dyspnea with activity. There have been no episodes of acute orthopnea or PND or worsening peripheral pitting edema. She has not had syncope. She does state at times that she has had indigestion. She has attributed this to noncardiac related issues. She was evaluated by her PCP. She had undergone a twelve-lead ECG it appears on 12-31-2021. It appears she was in sinus rhythm with no acute changes. She did have an ECG performed in the office today to evaluate for any dynamic changes. Again she was in sinus rhythm with no acute ECG changes. As part of her evaluation she had a transthoracic echocardiogram performed. She had a normal left ventricle with an LVEF of 65% with trivial MR/TR and a bicuspid appearing aortic valve with moderate to severe aortic valve stenosis with a peak aortic valve velocity of approximately 3.5 cm/s, mean gradient of approximately 28 mmHg, and an aortic valve area of approximately 0.7 cm???. She also was noted to have trivial ND and a mild to moderately dilated aortic root. She has been referred for further cardiovascular evaluation. Intake Vital Signs 08/04/21 11:31 04/16/22 11:08 04/16/22 11:11 Height 5 ft 4 in 5 ft 4 in 5 ft 5 in Weight: 181 lb 5 oz BMI 30.2 BP 128/98 H Blood Pressure Location Lt brachial Position Sitting Respiration 16 Pulse 84 Pulse Source Auscultation Intake Visit [facility]: [facility] Required: No Accompanied by: Allergies No Known Allergies Allergy (Verified 04/16/22 11:11) Medications amlodipine 5 mg tablet 5 mg PO DAILY 07/25/21 [History Confirmed 04/16/22] cholecalciferol (vitamin D3) 125 mcg (5,000 unit) tablet 125 mcg PO QWEEK 04/14/22 [History Confirmed 04/16/22] aspirin 81 mg chewable tablet 81 mg PO DAILY #1 TAB 04/16/22 [Rx Confirmed 04/16/22] hydrochlorothiazide 25 mg tablet 12.5 mg PO DAILY 04/16/22 [History Confirmed 04/16/22] PFSH Medical History AC (acromioclavicular) arthritis Alcohol use Arthritis Back pain Benign essential hypertension, age 0-18 Biceps tendonitis on right Bicuspid aortic valve Essential hypertension History of edema Hyperparathyroidism Hypertension Migraine headache Non-smoker Nonrheumatic aortic (valve) stenosis Partial tear of right rotator cuff Screen for colon cancer Syncope Tachycardia Vitamin D deficiency Surgical History History of History of rotator cuff surgery Hx of colonoscopy Family History Mother Hypertension Diabetes Sister Heart valve replaced Aortic aneurysm Social History Smoking Status: Never smoker alcohol intake: current alcohol intake frequency: holidays/special occasions only substance use type: does not use caffeine: No what type of physical activity do you participate in: other details: gym frequency: 1-2 times per week do you feel safe at home: Yes ROS Const Const: Positive for fatigue (increased); Negative for weakness, body ache, fever(s), headache(s), chills, frequent falls, night sweats, daytime sleepiness, difficulty sleeping, excessive sweating, weight gain, weight loss, increased appetite, poor appetite, anorexia or other Eyes Eyes: Negative for blurry vision or double vision ENT ENT: Positive for dizziness (off balance; random); Negative for headache(s) or balance problems Cardio Chest Pain: Yes (occasional) Character: dull and squeezing Onset: exercise Location: mid sternal Duration: minutes (10-15) Relieving: rest Palpitations: Yes (occasional; noticed increase in frequency) feels like its: other (flutter) Edema: None Muscle aches with walking: None Resp Respiratory: Positive for SOB with activity (slight) and Cough (occasional productive in manjit am; dry); Negative for SOB at rest, SOB orthopnea SOB lying down, Coughing up blood/hemoptysis, chest congestion, pain on inspiration, snoring, stridor, wheezing, crackles, paroxysmal nocturnal dyspnea or other Musc Musc: Negative for muscle aches/ myalgia, muscle weakness, joint pain or balance problems Neuro Neuro: Positive for dizziness (off balance; random) and near syncope; Negative for lightheadedness, syncope, orthostatic symptoms, frequent falls, headache(s), weakness, confusion, memory loss, restless legs, blurry vision, double vision, vertigo, seizures, lack of coordination or other Endo Endo: Positive for fatigue (increased); Negative for excessive sweating Cardiology Exam Const Appearance: cooperative, healthy appearing, comfortable, no acute distress, well developed and well groomed Nutritional Appearance: overweight Orientation: alert, awake and oriented x3 Head Head: normal to inspection, normocephalic and atraumatic Ears: hearing grossly normal bilaterally Nose: external nose normal Face and Sinus: face symmetric Eyes Eyelids: eyelids normal Conjunctivae: conjunctivae normal Pupils: PERRL EOM: EOM intact bilaterally Neck Neck: normal visual inspection and full ROM Carotids: delayed carotid upstroke Chest Chest inspection: normal inspection of the chest, symmetric chest movement and normal respiratory effort Auscultation: Bilateral: Clear to Auscultation Cardio Palpation: normal PMI Rate: regular rate Rhythm: regular rhythm Heart sounds: S1 normal, murmur and diminished A2 Murmur: Grade 3/6, harsh, late systolic, crescendo, LVOT, sternal notch and radiates to carotids GI GI: normal to inspection, soft and bowel sounds present Neuro General: patient alert, patient awake, patient oriented x3, gait normal and moves all extremities Skin Skin: no rashes or lesions noted Extremities Pulses: Normal: Right Dorsalis Pedis Pulse, Left Dorsalis Pedis Pulse, Right Posterior Tibial Pulse, Left Posterior Tibial Pulse, Right Radial Pulse and Left Radial Pulse Lower Extremity Edema: None: Bilateral Psych Psychological: normal affect Supplemental Info Supplemental Information Echocardiogram: 01/09/2022 Interpretation Summary The study was technically difficult. Contrast injection was performed. ??? Left ventricular systolic function is normal. The estimated ejection fraction is 65 %. Trivial mitral valve insufficiency. Trivial tricuspid valve insufficiency. Bicuspid aortic valve. Moderate - Severe Aortic Valve Stenosis. Trivial pulmonic valve insufficiency. Mild to moderately dilated aortic root. Unable to estimate RV systolic pressure/pulmonary artery pressure due to technically difficult study. Diastolic function is indeterminate. Labs: LDL Cholesterol 97 mg/dL (0-130) HDL Cholesterol 66 mg/dL (40-) Triglycerides 105 mg/dL (-199) VLDL Cholesterol 21 mg/dL (5-40) Diagnostics: Electrocardiogram Echocardiogram Chest X-Ray Pulmonary: No Data to Display Assessment and Plan Assessment and Plan (1) Bicuspid aortic valve: Status: Acute Plan: She does appear to have findings compatible with a bicuspid aortic valve. She states that her sister was actually diagnosed with a similar type problem at a relatively young age and subsequently required valvular heart surgery. (2) Nonrheumatic aortic (valve) stenosis: Status: Acute Comment: Mod-Severe per ECHO 01/09/22 Plan: Her bicuspid arctic valve appears to demonstrate findings compatible with moderate to severe aortic valve stenosis. Based upon her symptoms and findings it would not be unreasonable to further evaluate her in the cardiac catheterization laboratory. This would be in preparation for CT surgery evaluation for valvular repair/replacement. (3) Essential hypertension: Status: Acute Plan: She does have a history of hypertension. She states her medications have been adjusted. For the moment she will continue her ImmTher be. (4) Dizziness: Status: Acute Plan: She has had episodes of dizziness. It is unclear as to the exact etiology of these episodes. She will be evaluated with an ambulatory event monitor and attempt to correlate any concerning changes with rate and/or rhythm superimposed upon her valvular related issues that would correlate with these findings. Orders: Orders 12 Lead EKG performed by BMS Today I10 - Essential (primary) hypertension, R00.0 - Tachycardia, unspecified Left Right Heart Cath Today I10 - Essential (primary) hypertension, I35.0 - Nonrheumatic aortic (valve) stenosis, Q23.1 - Congenital insufficiency of aortic valve, R00.0 - Tachycardia, unspecified, R00.2 - Palpitations, R42 - Dizziness and giddiness 30 Day Event Recorder Preventi Today I10 - Essential (primary) hypertension, I35.0 - Nonrheumatic aortic (valve) stenosis, Q23.1 - Congenital insufficiency of aortic valve, R00.0 - Tachycardia, unspecified, R00.2 - Palpitations, R42 - Dizziness and giddiness Basic Metabolic Profile (BMP) Today I10 - Essential (primary) hypertension, I35.0 - Nonrheumatic aortic (valve) stenosis, Q23.1 - Congenital insufficiency of aortic valve, R00.0 - Tachycardia, unspecified, R00.2 - Palpitations, R42 - Dizziness and giddiness Partial Thromboplast Time Today I10 - Essential (primary) hypertension, I35.0 - Nonrheumatic aortic (valve) stenosis, Q23.1 - Congenital insufficiency of aortic valve, R00.0 - Tachycardia, unspecified, R00.2 - Palpitations, R42 - Dizziness and giddiness Prothrombin Time w/INR Today I10 - Essential (primary) hypertension, I35.0 - Nonrheumatic aortic (valve) stenosis, Q23.1 - Congenital insufficiency of aortic valve, R00.0 - Tachycardia, unspecified, R00.2 - Palpitations, R42 - Dizziness and giddiness CBC W/Diff, Automated Today I10 - Essential (primary) hypertension, I35.0 - Nonrheumatic aortic (valve) stenosis, Q23.1 - Congenital insufficiency of aortic valve, R00.0 - Tachycardia, unspec ified, R00.2 - Palpitations, R42 - Dizziness and giddiness Medications: New aspirin 81 mg PO DAILY 1 TAB 0RF Plan Details Additional Comments: In the interim she will initiate medical management with aspirin 81 mg p.o. daily. The above was discussed with her and she was agreeable to this approach Thank you for allowing me to participate in the care of your patient. Please don't hesitate to call if any issues arise. This note was generated using a voice recognition system and there may be incorrect words, spelling or punctuation that were not noted when reviewing the office note prior to saving. Follow Up: 6 Weeks (PFM ) COVID (Procedure Consent) Procedure Criteria Procedure Criteria: Yes Elective The surgeon/proceduralist and patient have discussed in detail the risk of exposure to and/or potential harm posed by the COVID-19 virus with having a surgery/procedure at this time versus the risk of??? delaying the surgery/procedure. It is not possible to know either the risk of delaying the surgery or procedure or chance of getting an infection with perfect accuracy, but a joint decision was made between the patient and the surgeon/proceduralist ???to proceed at this time with the scheduled surgery/procedure as indicated on the consent form. Coding Level of Care Code Off vis,new,level 5 Diagnoses Bicuspid aortic valve Q23.1 Nonrheumatic aortic (valve) stenosis I35.0 Essential hypertension I10 Dizziness R42 Coding Level of Care Code Off vis,new,level 5 Diagnoses Bicuspid aortic valve Q23.1 Nonrheumatic aortic (valve) stenosis I35.0 Essential hypertension I10 Dizziness R42 04/16/22 1807 <Electronically signed by Devonte Cullen MD> Date Devonte Cullen MD Cosigner Signature: Date (if applicable) CC: PARTS SALES ADVISOR-C Asa Alba [facility] Work Phone: Start: 01-13-2022 End: 01-14-2022 Brain W/WO Contrast Comments: See Note; NOTES: [facility] Services [address] [place] [id number] Brain W/WO Contrast MR#: [id number] Acct: [id number] Name: JENARO WILSON Rep #: [id number] : 1960 F 61 From: Jarad Baumann MD PCP: Dr. Jaimee Jarrett, Status: REG CLI Study: Brain W/WO Contrast Date of Exam: 01/13/22 Exam# [id number] Ordering Dr: Jaimee Jarrett DO EXAM: MR HEAD WITHOUT AND WITH INTRAVENOUS CONTRAST CLINICAL INDICATION: VERTIGO, bilateral tinnitus TECHNIQUE: Multiplanar and multisequence MR images of the brain were obtained without and with intravenous contrast. Additional high-resolution imaging through the temporal bones also performed. This report was created using Whyd report generation technology. CONTRAST: IV 17ml Dotarem COMPARISON: None. FINDINGS: BRAIN AND EXTRA-AXIAL SPACES: Increased T2 signal intensity within the cerebral white matter suggestive of chronic microvascular change. Old lacunar infarct within the left caudate nucleus. No intra- or extra-axial hemorrhage. No intracranial mass or mass effect. Posterior fossa structures are unremarkable. Ventricles are appropriate for age. No hydrocephalus. Basal cisterns are patent. SELLA: Unremarkable. Normal sella turcica, pituitary gland, infundibular stalk, optic chiasm and hypothalamus. AUDITORY SYSTEM: Unremarkable. The internal auditory canals are patent. BONES/JOINTS: Unremarkable. No discrete lytic or blastic abnormalities. SINUSES: Unremarkable as visualized. Clear. MASTOID AIR CELLS: Unremarkable as visualized. Clear. ORBITS: Unremarkable as visualized. Both globes, extraocular muscles, optic nerves and retrobulbar fat appear unremarkable. VASCULATURE: Unremarkable as visualized. Normal flow voids in the major intracranial circulation. MRI/Brain W/WO Contrast IMPRESSION: 1. No acute intracranial abnormality. 2. Chronic microvascular change. 3. Normal posterior fossa and internal auditory canals. Electronically Signed: Jarad Baumann MD at 10:30 EDT , CC: Dr. Jaimee Jarrett DO Imaging Science Professor: Signed Jaimee Jarrett DO Work Phone: Start: 01-13-2022 MRI of brain with contrast No Primary Care Physician Start: 01-09-2022 End: 01-09-2022 Echo Complete W/ Contrast Comments: See Note; NOTES: [facility] Cardiovascular Services [address] [place] [address] Echo Complete W/ Contrast 01/09/22 1241 MR#: [id number] Acct: [id number] Name: JENARO WILSON Rep #: [id number] : 1960 61 From: Devonte Cullen MD Attending Dr: Dr. Jaimee Jarrett DO Status: REG CL I Ordering Dr: Jaimee Jarrett DO Date: 01/09/22 Location: [facility] Sex: F C Admitted: Reason For Study: Systolic Murmur Procedure This was a 2D Doppler, Color Flow transthoracic echocardiogram. The study was technically difficult. Contrast injection was performed. Exam performed in department. Left Ventricle Normal LV size. Left ventricular systolic function is normal. The estimated ejection fraction is 65 %. Diastolic function is indeterminate. No regional wall motion abnormalities noted. Right Ventricle Normal RV size. Normal systolic function. Atria Normal left atrium. Normal right atrium. No doppler evidence for ASD. Mitral Valve There is no mitral annular calcification. Normal mitral valve. Trivial mitral valve insufficiency. Tricuspid Valve Normal tricuspid valve. Trivial tricuspid valve insufficiency. Unable to estimate RV systolic pressure/pulmonary artery pressure due to technically difficult study. Aortic Valve Bicuspid aortic valve. Moderate diffuse aortic valve calcification. Moderate - Severe Aortic Valve Stenosis. Pulmonic Valve The pulmonic valve is not well visualized. Trivial pulmonic valve insufficiency. Great Vessels Mild to moderately dilated aortic root. Pericardium/Pleural No pericardial effusion. Medication 20 gauge I.V. with prn adaptor inserted into right arm. Diluted definity 2ml given slow IV push to enhance endocardial definition. MMode/2D Measurements Calculations LVIDd: 4.2 cm IVSd: 1.1 cm LVOT diam: 2.1 cm LVIDs: 3.3 cm LVPWd: 1.3 cm RVDd: 3.0 cm FS: 22.1 % LVOT area: 3.5 cm2 Ao root diam: 4.3 cm LVAd ap4: 29.8 cm2 SV(MOD-sp4): 46.1 ml LVLd ap4: 8.3 cm EDV(MOD-sp4): 86.0 ml EDV(sp4-el): 91.4 ml LVAs ap4: 17.3 cm2 LVLs ap4: 6.1 cm ESV(MOD-sp4): 39.9 ml ESV(sp4-el): 41.8 ml EF(MOD-sp4): 53.6 % EF(sp4-el): 54.2 % SV(sp4-el): 49.5 ml Time Measurements MV dec time: 0.29 sec Doppler Measurements Calculations MV E max drew: 40.6 cm/sec Lat Peak E' Drew: 8.8 cm/sec Med Peak E' Drew: 2.9 cm/sec MV A max drew: 89.8 cm/sec E/E' lat: 4.6 E/E' med: 14.0 MV E/A: 0.45 MV V2 max: 104.2 cm/sec MV P1/2t max drew: 69.2 cm/sec Ao V2 max: 351.5 cm/sec MV max P.3 mmHg MV P1/2t: 82.1 msec Ao max P.4 mmHg MV V2 mean: 54.7 cm/sec MV dec slope: 246.9 cm/sec2 Ao V2 mean: 251.3 cm/sec MV mean P.4 mmHg Ao mean P.3 mmHg MV V2 VTI: 22.4 cm MVA(P1/2t): 2.7 cm2 Ao V2 VTI: 74.0 cm MVA(VTI): 2.2 cm2 MAURO(I,D): 0.68 cm2 MAURO(V,D): 0.67 cm2 LV V1 max: 67.8 cm/sec SV(LVOT): 50.4 ml PA V2 max: 79.2 cm/sec LV V1 max P.8 mmHg LV V1 mean P.1 mmHg LV V1 mean: 48.9 cm/sec LV V1 VTI: 14.4 cm ECHO/Echo Complete W/ Contrast Interpretation Summary The study was technically difficult. Contrast injection was performed. Left ventricular systolic function is normal. The estimated ejection fraction is 65 %. Trivial mitral valve insufficiency. Trivial tricuspid valve insufficiency. Bicuspid aortic valve. Moderate - Severe Aortic Valve Stenosis. Trivial pulmonic valve insufficiency. Mild to moderately dilated aortic root. Unable to estimate RV systolic pressure/pulmonary artery pressure due to technically difficult study. Diastolic function is indeterminate. _ Ordering Physician: Jaimee Jarrett Referring Physician: Jaimee Jarrett Performed By: Gibran Araujo RCS 01/09/221647 Date Devonte Cullen MD CC: Dr. Jaimee Jarrett DO; No Primary Care Physician Date Dictated: 01/09/22 1241 Date Transcribed: 01/09/221647 Imaging Science Professor: Jamir Jarrett DO Work Phone: Start: 09-11-2021 End: 09-11-2021 Re-Evaluation - PT (1) Comments: See Note; NOTES: [facility] Physical Therapy [address] [place] [address] / REEVALUATION / MEDICARE RECERTIFICATION PHYSICAL THERAPY MR#: [id number] Acct: [id number] Name: JENARO WILSON Rep #: [id number] : 1960 61 From: Suhas Becker DPT Referring DrDeon: BC Weiner Status:REG RCR Insurance: [facility] SELF PAY INSURANCE BC Koroma, It has been my pleasure to treat JENARO WILSON over the last 14 visits for S/P RTC repair with SAD. DOS: 08/04/21. Please see the progress note below for an update on the physical therapy plan of care! Subjective: Pt. reports overall doing okay. She arrives in sling as normal. She did have some questions about wearing sling time frame. She was initially told 5 weeks, but at her last appointment she said she was told another 5 weeks, resulting in 8 weeks total. I will call physician to clarify. 3/10 pain in R shoulder pre treatment today. Objective/Function: PROM: flexion 155deg, increase NW, abd 150deg increase NW, ER at 90deg 65deg. IR at 90deg 30deg. Pt. is progressing with her ROM. She has greatest symptoms with end range abd and ER motions. Cont. to work on end range PROM progressing towards full. She is okay to add in AAROM start in supine and progressing to standing as tolerated. Add in IR next visit AAROM with wand. I added truong, ER at 90deg AAROM this date. I stressed to her about working on ROM progressing towards end range. She did have some questions about how much longer she shoulder wear her sling. I called physician a left a message. I will call back tomorrow if I have not heard back from them. Plan Plan: Cont. to progress end range PROM, add in AAROM as tolerated. Add in functional IR with wand next visit. I stressed to her about working to end range stretching. Pt. consents. Balance/Gait/Functional tests - Balance/Special Test Scores Quick DASH Score: 43.1800 Goals Goal 1:: LTG: Pt. to be I with HEP to increase ROM both actively and passively, to increase strength and promote general shoulder and UE stability. Goal Time Frame: 6-8 Weeks Goal Progress: Progressing Goal 2:: STG: Pt. to sleep throughout the night with 0-2/10 pain in R shoulder allowing for improved quality of life. Goal Time Frame: 2 Weeks Goal Progress: Progressing Goal 3:: LTG: pt. to have increased PROM of R shoulder to at least 165deg of flexion, 165deg of abduction, ER of 30deg, allowing increased ability to complete all upper body dressing and ADLs. Goal Time Frame: 4-6 Weeks Goal Progress: Progressing Goal 4:: LTG: Pt. to have full AROM of R shoulder allowing her to complete all work related activities without limitations. Goal Time Frame: 6-8 Weeks Goal Progress: Progressing Goal 5:: LTG: Pt. to have increased R shoulder strength to at least 4+/5 throughout allowing for increased ability to complete all job and recreational activities without limitations. Goal Progress: Progressing Anticipated Interventions Patient/Client Instruction: Educate patient on: Condition, Plan of Care, Risk Factors, Benefits of Fitness Program For the Purpose of:: To improve health and function, To foster healthy habits, To improve decision making, To facilitate caregiver knowledge, To improve self management, To prevent re-injury, To improve ability to perform tasks related to life management Therapeutic Exercise to Include: Strength training, Power training, Body mechanics, Postural training, Passive ROM, Active ROM, Scapular Strength/Stabilization For the Purpose of:: To decrease pain, To decrease swelling/inflammation, To increase ROM, To improve nutrient delivery to tissue, To increase oxygenation perfusion, To improve muscle performance and motor function, To improve ability to perform ADL's, To increase tolerance to activity/condition/position , To improve performance and independence with ADL's, To improve health of tissue, To decrease soft tissue restriction, To improve endurance Manual Therapy Techniques to Include: Mobilization, Passive ROM, Soft tissue mobilization For the Purpose of:: To decrease pain, To decrease swelling/inflammation, To increase ROM, To improve nutrient delivery to tissue, To increase flexibility/ROM Cryotherapy (ice pack, ice massage): Yes Thermo therapy (hot pack): Yes For the Purpose of:: To decrease pain, To decrease swelling/inflammation, To increase ROM Please do not hesitate to contact me at [phone] by phone or if you have questions or concerns regarding this new plan of care! Sincerely, Suhas Becker DPT <Electronically signed by Suhas Becker DPT> 09/11/21 0715 CC: CORDELIA Graham; BC Weiner CLS Signed For Medicare only, by signing this I certify the plan of care. _ Physicians Signature Date Ramona Graham Work Phone: Start: 08-08-2021 End: 08-08-2021 Inital Evaluation (1) - PT Comments: See Note; NOTES: [facility] Therapy [facility] [address] [place] [address] / REHABILITATION SERVICES INITIAL EVALUATION MR#: [id number] Acct: [id number] Name: JENARO WILSON Rep #: [id number] : 1960 61 From: Suhas Becker DPT Referring Dr.: BC Weiner Status: REG R CR Insurance: [facility] [employer] SELF PAY INSURANCE Patient's Visit Information JENARO WILSON is a 61 year old F referred to Physical Therapy by BC Koroma with a diagnosis of S/P RTC repair with SAD. DOS: 08/04/21. Date of Evaluation: 08/08/21 Physical Therapist: Suhas Becker DPT - Visit Plan Frequency: 3x /Week Duration: 6-8 weeks Plan: Start with - Subjective Pt. is here today for her initial evaluation with diagnosis of S/P RTC repair with SAD. DOS: 08/04/21. Pt. had a repair of the supraspinatus, complete subacromial bursectomy and shaving of the acromion/decompression of the subacromial space. She arrives today with use of ultra sling as indicated by physician. She reports overall doing well, no N/T, no changes in vision and no fever. She work in [employer] at [employer]. She is sleeping okay, but is having trouble staying asleep, sleeping on couch. She is trying to avoid her pain medication as it has been making her sick. She is taking Tylenol extra strength. She has been doing some pendulums, icing and gentle elbow flexion at home. She is hopeful to get back to all work and recreational activities without limitations. - Pain R shoulder Pain Intensity (Out of 10): 4 Pain Intensity Range: 3, 8 - Objective POSTURE: Pt. has normal shoulder heights, equal. She tends to keep R shoulder in guarded posture at side. PALPATION: Pt. has normal healing incisions, no signs of infection. Pt. has marked brusing and swelling at anterior shoulder, otherwise normal. NEURO: Pt. has normal sensation and DTR of BUEs. ROM: R shoulder: PROM: flexion 105deg, ER at side 15deg. Pt limited secondary to pain, no blocks noted. L shoulder: AROM full motion throughout. Pt. tolerating ROM well. MMT: LUE 5/5 through out. R wirst 5/5, elbow 5/5; DNT shoulder. LUE 5/5 throughout. - Balance/Special Test Scores Quick DASH Score: 79.5450 - Goals Goal 1:: LTG: Pt. to be I with HEP to increase ROM both actively and passively, to increase strength and promote general shoulder and UE stability. Goal Time Frame: 6-8 Weeks Goal 2:: STG: Pt. to sleep throughout the night with 0-2/10 pain in R shoulder allowing for improved quality of life. Goal Time Frame: 2 Weeks Goal 3:: LTG: pt. to have increased PROM of R shoulder to at least 165deg of flexion, 165deg of abduction, ER of 30deg, allowing increased ability to complete all upper body dressing and ADLs. Goal Time Frame: 4-6 Weeks Goal 4:: LTG: Pt. to have full AROM of R shoulder allowing her to complete all work related activities without limitations. Goal Time Frame: 6-8 Weeks Goal 5:: LTG: Pt. to have increased R shoulder strength to at least 4+/5 throughout allowing for increased ability to complete all job and recreational activities without limitations. - Rehabilitation Potential Physical Therapy Diagnosis: Pt. has signs and symptoms consistent with S/P RTC repair with SAD. She had her supraspinatus repair, complete bursectomy and SAD preformed on 08/04/21. Pt. has subsequent hypomobility, weakness, difficulty with functional activities and increased pain. Pt. would benefit from PT to address the above limitations progressing back to all functional and work activities without limitations. - Anticipated Interventions Patient/Client Instruction: Educate patient on: Condition, Plan of Care, Risk Factors, Benefits of Fitness Program For the Purpose of:: To improve health and function, To foster healthy habits, To improve decision making, To facilitate caregiver knowledge, To improve self management, To prevent re-injury, To i mprove ability to perform tasks related to life management Therapeutic Exercise to Include: Strength training, Power training, Body mechanics, Postural training, Passive ROM, Active ROM, Scapular Strength/Stabilization For the Purpose of:: To decrease pain, To decrease swelling/inflammation, To increase ROM, To improve nutrient delivery to tissue, To increase oxygenation perfusion, To improve muscle performance and motor function, To improve ability to perform ADL's, To increase tolerance to activity/condition/position , To improve performance and independence with ADL's, To improve health of tissue, To decrease soft tissue restriction, To improve endurance Manual Therapy Techniques to Include: Mobilization, Passive ROM, Soft tissue mobilization For the Purpose of:: To decrease pain, To decrease swelling/inflammation, To increase ROM, To improve nutrient delivery to tissue, To increase flexibility/ROM Cryotherapy (ice pack, ice massage): Yes Thermo therapy (hot pack): Yes For the Purpose of:: To decrease pain, To decrease swelling/inflammation, To increase ROM Thank you for the opportunity to evaluate your patient. For Medicare and Medicare HMO plans, please review the plan of care and approve it. It will need to be FAXED BACK to us at [phone] for Medicare purposes. For Medicare only, by signing this I certify the plan of care. Please let me know if there are questions or concerns regarding this plan of care. Physician Signature: Date: <Electronically signed by Suhas Becker DPYazan> 08/08/21 0935 CC: CORDELIA Graham; BC Weiner CLS Signed Ramona Graham Work Phone: Start: 08-04-2021 End: 08-04-2021 Operative Report Comments: See Note; NOTES: [facility] Medical Records Department [address] [place] [address] Operative Report 08/04/21 1359 MR#: [id number] Acct: [id number] Name: JENARO WILSON Rep #: [id number] : 1960 61 From: Ronald Mclain DO PCP: CORDELIA Chacko Status:REG [facility] Location: [place] [address]- Report of Operation Date of Procedure: 08/04/21 Pre-Operative Diagnosis: SAIS, AC arthrosis, RCT right shoulder Post-Operative Diagnosis: same Surgery/Procedure Performed:: ASD, Roberto procedure, RCR right shoulder Surgeon: Ronald Mclain steamboat pilot: Guy Millan Type of Anesthesia: General/Regional Anesthesiologist: Franklin Pantoja Admantonio VTE Documentation VTE Present on Admission: No VTE Mechan Device Prophylaxis: SCD's and Knee High KRISS Hose VTE Pharm Prophylaxis ordered?: No Reason prophylaxis not ordered:: Treatment Not Indicated 08/04/21 1401 <Electronically signed by Ronald Mclain DO> Cosigner Signature (if applicable): CC: PARTS SALES ADVISOR-C Ramona Graham; Dr. Ronald Mclain DO Signed Ramona Graham Work Phone: Start: 07-28-2021 End: 07-29-2021 12 Lead EKG Comments: See Note; NOTES: [facility] Cardiovascular Services [address] [place] [address] 12 Lead EKG 07/28/21 1346 MR#: [id number] Acct: [id number] Name: JENARO WILSON Rep #: [id number] : 1960 61 From: Devonte Cullen MD Attending Dr: Dr. Ronald Mclain DO Status: ND E SDC Ordering Dr: Ronald Mclain DO Date: 07/28/21 Location: [facility] Sex: F C Admitted: Test Reason : PREOP Blood Pressure : / mmHG Vent. Rate : 085 BPM Atrial Rate : 085 BPM P-R Int : 168 ms QRS Dur : 088 ms QT Int : 358 ms P-R-T Axes : 021 -02 008 degrees QTc Int : 426 ms Normal sinus rhythm Normal ECG Confirmed by DEVONTE CULLEN MD ([id number]), fan mail editor DONNA CARBAJAL ([id number]) on 07/29/2021 1:43:45 PM Referred By: Ronald Mclain Confirmed By:DEVONTE CULLEN MD 07/29/21 1343 Date Devonte Cullen MD CC: PARTS SALES ADVISOR-C Ramona Graham; Dr. Ronald Mclain, DO Signed Ramona Graham Work Phone: Start: 06-26-2021 End: 06-26-2021 Upper Ext Joint Only(Routine) Comments: See Note; NOTES: [facility] Imaging Services [address] [place] [address] Upper Ext Joint Only(Routine) MR#: [id number] Acct: [id number] Name: JENARO WILSON Rep #: [id number] : 1960 F 60 From: Jose hodge MD PCP: CORDELIA Chacko Status: REG CLI Study: Upper Ext Joint Only(Routine) Date of Exam: 08/27/20 Exam# [id number] Ordering Dr: Ronald Mclain DO STUDY: MRI RIGHT SHOULDER REASON FOR EXAM: Female, 60 years old. IMPINGEMENT SYNDROME OF RIGHT SHOULDER TECHNIQUE: Standardized fat and water weighted pulse sequences were obtained in all 3 orthogonal planes. COMPARISON: MRI of the right shoulder dated June 27, 2020 FINDINGS: Moderate tendinopathy with signal abnormality and thickening of the supra spinatus tendon is present at the greater tuberosity insertion site, and in addition to some mild interstitial tearing at the undersurface. A small glenohumeral joint effusion is present. Normal infraspinatus tendon. Normal subscapularis tendon. Normal teres minor tendon. Normal supraspinatus muscle. Normal infraspinatus muscle. Normal subscapularis muscle. Normal teres minor muscle. Normal glenohumeral articulation. Normal humeral head and visualized proximal humerus. Normal biceps labral complex. Normal intracapsular long biceps tendon. Normal labrum. Normal capsulo- ligamentous complex. Normal rotator interval. There is mild osteoarthritis of the acromioclavicular articulation. There is a Type II morphology (curved), with a neutral orientation. There is minimal fluid distention of the subacromial bursa, consistent with mild subacromial-subdeltoid bursitis. Normal visualized coracohumeral and coracoacromial ligaments. Normal quadrilateral space. Normal axillary space. Normal deltoid muscle. Normal trapezius muscle. MRI/Upper Ext Joint Only(Routine) IMPRESSION: 1. Moderate tendinopathy with signal abnormality and thickening of the supra spinatus tendon is present at the greater tuberosity insertion site, and in addition to some mild interstitial tearing at the undersurface. A small glenohumeral joint effusion is present. Electronically Signed: Jose Anguiano MD at 23:08 EST , Service support , CC: CORDELIA Graham; Dr. Ronald Mclain DO Imaging Science Professor: Signed Ramona Graham CNP Work Phone: Start: 06-16-2021 End: 06-16-2021 Chest PA and Lateral Comments: See Note; NOTES: [facility] Imaging Services [facility] [place] [address] Chest PA and Lateral MR#: [id number] Acct: [id number] Name: JENARO WILSON Rep #: [id number] : 1960 F 60 From: Haroldo Salinas PCP: CORDELIA Chacko Status: REG CLI Study: Chest PA and Lateral Date of Exam: 06/16/21 Exam# [id number] Ordering Dr: Ramona Graham NP STUDY: XR Chest 2 Views 06/16/2021 6:30 AM REASON FOR EXAM: Female, 60 years old. CHEST PAIN ELEVATED LDH COMPARISON: None TECHNIQUE: XR Chest 2 Views FINDINGS: There is no demonstrated pleural abnormality. Normal heart size. Normal mediastinum. Normal catherine. Prominent appearing increased interstitial lung markings. Normal visualized pulmonary arteries. There is atherosclerotic calcification of the aortic arch with tortuosity. There are diffuse degenerative changes of the visualized thoracic spine. There is degenerative osteoarthritis of the bilateral shoulders. There is no demonstrated abnormality of the visualized soft tissue structures of the upper abdomen. RAD/Chest PA and Lateral IMPRESSION: There are no acute findings. Electronically Signed: Haroldo Bertrand MD at 16:49 EST , Service support , CC: CORDELIA Graham Imaging Science Professor: Signed Ramona Graham SCUBA INSTRUCTOR Work Phone: Start: 05-08-2021 End: 05-14-2021 Endocrinology Visit Report Comments: See Note; NOTES: [facility] [address] [place] [address]. [address] [place] [address] OFFICE VISIT Date of Service: 05/08/21 MR#: [id number] Acct: [id number] Name: CHALO WILSONJose Jimenez Rep #: [id number] : 1960 Provider: Maria Isabel Avery Age/Sex: 60/F Location: [facility] [place] [place] Status: Signed Intake Vital Signs 05/08/21 14:50 Height 5 ft 5 in Weight: 184 lb 8 oz BMI 30.7 BP 124/84 H Blood Pressure Location Lt brachial Position Sitting Respiration 16 Pulse 100 Pulse Source Monitor Temp 97.2 F L Temp Source Temporal Pulse Oximetry (%) 99 Oxygen Delivery Method room air Intake Visit Reasons: F/U BLOOD WORK Chief Complaint: Elevated PTH Patent Searcher Required: No Accompanied by: self Is patient in pain?: No Allergies No Known Allergies Allergy (Verified 05/08/21 14:56) FOR[facility] Medical History (Updated 05/08/21 @ 15:[address] Bello Escamilla MD) Benign essential hypertension, age 0-18 Hyperparathyroidism Migraine headache Vitamin D deficiency Surgical History (Updated 08/01/19 @ 08:[address] Bello Escamilla MD) History of Family History (Updated 08/01/19 @ 08:[address] Bello Escamilla MD) Mother Hypertension Diabetes Social History (Updated 07/02/20 @ 15:[address] Laura Cr DO) Smoking Status: Never smoker alcohol intake: current alcohol intake frequency: holidays/special occasions only what type of physical activity do you participate in: other details: gym frequency: 1-2 times per week do you feel safe at home: Yes HPI HPI Chief Complaint: Elevated PTH Details: JENARO WILSON, is a 60 F who presents to the office today for follow up. She was last seen 13 months ago. She had secondary hyperparathyroidism with low vitamin D level and elevated PTH (143) Vitamin D level has since been normalized, but PTH level remains high at 143. She reports her diet is low in calcium rich foods. She had bone density which looks good. Exam Const General: cooperative, healthy appearing, comfortable, no acute distress, well developed and not cushingoid Nutritional Appearance: well nourished Orientation: alert, awake and oriented x3 HENMT Head: normal to inspection Ears: hearing grossly normal bilaterally Nose: external nose normal Mouth: oral mucosae normal Eyes General: appearance normal, both eyes and all related structures Alignment and Position: alignment normal Periorbital: periorbital findings normal Eyelids: eyelids normal Conjunctivae: conjunctivae normal Neck Neck: normal visual inspection Neck mass: No Thyroid: thyroid normal Lymphatic: no lymphadenopathy noted Chest Chest palpation inspection: normal inspection of the chest Resp Effort Inspection: normal respiratory effort, able to speak in complete sentences, symmetric chest movement, no audible wheezes and no cough Cardio Rate: regular rate Rhythm: regular rhythm Pulses: posterior tibial pulses present GI Inspection: normal to inspection Palpation: soft Skin General: no rashes or lesions noted Neuro General: patient alert, patient awake and patient oriented x3 Cranial Nerves: CN's II-XI intact bilaterally Cognition: normal cognition Speech: speech normal Gait: normal gait Motor: muscle tone normal throughout Extrem General: no edema Psych Appearance: grossly normal Mental Status: mental status grossly normal Mood: congruent mood Affect: normal affect Speech and Movement: speech and movement normal Attitude: cooperative Thought Process: normal Thought Content: normal Judgment: judgment good Coding Level of Care Code Off vis,est,level 4 Diagnoses Hyperparathyroidism E21.3 Vitamin D deficiency E55.9 Assessment and Plan Assessment and Plan (1) Hyperparathyroidism: Status: Acute Orders: Orders: Calcium, Urine 24HR 05/08/21 Plan - Dr. Bello Escamilla MD: She has normocalcemic hyperparathyroidism. This represents one of two possibilities: early primary hyperparathyroidism (which may or may not progress) OR low calcium intake. Will check 24 hour urine collection for calcium. If this is low, will add calcium supplement and encourage increased intake of calcium rich foods. If urine calcium is normal, suggest following her calcium, PTH levels and DEXA scan. Intervene for hypercalcemia or bone loss. I discussed this plan with her in detail. I have spent [33] minutes today reviewing labs, records and history. Time includes coordinating care, interpretation of tests, discussion with patient's other health care providers via telephone. This also includes time I spent with the patient for exam, treatment plan and education as well as documenting clinical information. (2) Vitamin D deficiency: Status: Chronic 05/09/21914 <Electronically signed by Bello Escamilla MD> Date Bello Escamilla MD Cosigner Signature: Date (if applicable) CC: PARTS SALES ADVISOR-C Ramona Graham SCUBA INSTRUCTOR Work Phone: Start: 04-02-2021 End: 04-02-2021 SCRN MAMM (CAD)W/STEPHANI COE Comments: See Note; NOTES: [facility] Imaging Services [address] [place] [address] [place] [address] [facility] MR#: [id number] Acct: [id number] Name: JENARO WILSON Rep #: [id number] : 1960 F 60 From: Leo antunez MD PCP: Ramona Graham NP-C Status: [facility] CL Study: SCRN MAMM (CAD)W/STEPHANI BILAT Date of Exam: 03/19 12/06 Exam# [id number] Ordering Dr: Ramona Graham NP PARTS SALES ADVISOR-C MAMMOGRAPHY - BILATERAL SCREENING REASON FOR EXAM: Female, 60 years old. Routine annual screening examination. PERTINENT HISTORY: Non-contributory. TECHNIQUE: Digital bilateral breast stephani (3D mammographic acquisition) in the CC and MLO projections. 2-D mediolateral oblique (MLO) and craniocaudad (CC) views of both breasts were obtained. CAD: Full Field Digital Mammography with Computer Added Detection was performed. COMPARISON: Comparison is made with prior study 07/07/2018 and 10/13/2013. FINDINGS: Breast Composition: There are scattered areas of fibroglandular density. There are no dominant masses or suspicious calcifications. Stable small benign appearing bilateral axillary lymph nodes. No other significant abnormalities are identified. There has been no significant change since the prior study. BI/SCRN MAMM (CAD)W/STEPHANI BILAT IMPRESSION: Stable bilateral screening mammogram. Yearly follow-up mammogram recommended. (A) ASSESSMENT CATEGORY: BIRADS Category 2: Benign. A letter regarding these results will be sent to the patient by the facility within 30 days. Approximately 10% of breast cancers are not detected by mammography. A normal mammogram should not delay biopsy of a clinically suspicious abnormality. [id number] Electronically Signed: Leo Guardado MD at 14:15 EDT , Service support , CC: CORDELIA Graham Imaging Science Professor: Signed Ramoan Graham CNP Work Phone: Start: 07-02-2020 End: 07-02-2020 Orthopedic Visit Report Comments: See Note; NOTES: [facility] [address] [place] [address] [address] [place] [address] OFFICE VISIT Date of Service: 07/02/20 MR#: [id number] Acct: [id number] Name: JENARO WILSON Rep #: [id number] : 1960 Provider: Dr. Laura muniz DO Age/Sex: 59/F Location: [facility] Status: Signed Intake Intake Visit Reasons: Right shoulder Accompanied by: Self Is patient in pain?: Yes (throbbing) Pain scale (1-10): 3 Allergies No Known Allergies Allergy (Verified 07/02/20 13:53) Medications cholecalciferol (vitamin D3) 1,250 mcg (50,000 unit) capsule 50,000 unit PO QWEEK #12 cap 07/31/19 [Rx Confirmed 07/02/20] hydrochlorothiazide 12.5 mg tablet 12.5 mg PO DAILY #1 tab 08/01/19 [Rx Confirmed 07/02/20] losartan 25 mg tablet 25 mg PO DAILY #1 tab 08/01/19 [Rx Confirmed 07/02/20] PFSH Medical History (Updated 07/02/20 @ 14:15 by Tamanna Ham) Vitamin D deficiency (Acute) Benign essential hypertension, age 0-18 (Chronic) Migraine headache (Chronic) Surgical History (Updated 08/01/19 @ 08:[address] Bello Escamilla MD) History of (Inactive) Family History (Updated 08/01/19 @ 08:[address] Bello Escamilla MD) Mother Hypertension Diabetes Social History (Updated 07/02/20 @ 15:[address] Laura Cr DO) Smoking Status: Never smoker alcohol intake: current alcohol intake frequency: holidays/special occasions only what type of physical activity do you participate in: other details: gym frequency: 1-2 times per week do you feel safe at home: Yes HPI Right shoulder: Details: Parts of this documentation were recorded by a scribe, this documentation accurately reflects the service provided and the decisions made by me, Dr. Laura Cr DO 07/02/20 9622. JENARO WILSON is a 59 year old F here today for review of her MRI. Patient had an MRI of her right shoulder on: 06/27/2020. Pain is rated: 3/10 from the pain scale. Patient is taking Advil or Aleve OTC for pain relief. Denies numbness, stiffness and tingling. ROS Get Me Listed Reports system reviewed and no additional complaints, except as docu, Reports joint pain, Denies numbness, Denies stiffness, Denies tingling Neuro No numbness, No tingling Ortho Exam Right Shoulder Testing: Positive Drop Arm Office Procedures Kenalog 40 mg/mL suspension for injection (triamcinolone acetonide) 40 mg intra-articular ONCE Injections Yes Subacromial Injection Right Details: Obtained consent for injection. Under sterile conditions, injected the patients right subacromial joint with a 10cc cocktail of 8cc bupivacaine and 2cc kenalog. The patient tolerated the injection well without any noted complication. Patient should call our office if redness develops, pain worsens or if they have any concerns. Office Meds Kenalog Performing Provider: Laura Cr DO Administered by: Laura Cr DO on 07/02/20 14:14 Dose Route Admin Location Lot Number Expiration Date NDC Manufactu rer 80 mg intra-articular right subacromial [id number] 04/18/21 6638-6564-88 [facility] Assessment Plan Problems 1. Incomplete tear of right rotator cuff, unspecified whether traumatic M75.111 2. Biceps tendonitis on right M75.21 3. Bursitis and tendinitis of shoulder region M75.50; M75.90 Plan Reviewed patient's MRI results. Explained patient has a partial rotator cuff tear and biceps tendonitis. IMPRESSION: Moderate rotator cuff tendinosis with low-grade partial-thickness articular surface tear Moderate intracapsular long biceps tendinosis with fraying of the biceps labral anchor Labral degeneration with tiny anterior labral tear Glenohumeral and AC joint arthrosis Small glenohumeral effusion and mild subacromial subdeltoid bursitis Explained she does not require surgery without failing conservative treatment options. Treatment option of a steroid injection offered today. Patient would like to proceed with an injection. Obtained consent for injection. Under sterile conditions, injected the patients right subacromial. The patient tolerated the injection well without any noted complication. Patient should call our office if redness develops, pain worsens or if they have any concerns. Advised if no benefit from the injection, we will discuss surgical intervention. All questions answered. Patient in agreement of plan. Follow up after two weeks if no benefit or sooner if pain, swelling, numbness or associated symptoms, or concerns develop. 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 ([id number]) 07/02/20 1518 <Electronically signed by Laura Cr DO> Date Laura Cr DO Cosign Signature: Date (if applicable) CC: Ramona Criscydney SCUBA INSTRUCTOR Work Phone: Start: 06-27-2020 End: 06-28-2020 Upper Ext Joint Only(Routine) Comments: See Note; NOTES: [facility] Imaging Services [address] [place] [address] Upper Ext Joint Only(Routine) MR#: [id number] Acct: [id number] Name: JENARO WILSON Rep #: [id number] : 1960 F 59 From: Paul najera DO PCP: CORDELIA Chacko Status: REG CLI Study: Upper Ext Joint Only(Routine) Date of Exam: 08/28/19 Exam# [id number] Ordering Dr: Laura Cr STUDY: MRI RIGHT SHOULDER REASON FOR EXAM: Female, 59 years old. right shoulder pain, painful range of motion, no specific injury TECHNIQUE: Standardized fat and water weighted pulse sequences were obtained in all 3 orthogonal planes. COMPARISON: X-ray dated 05/28/2020. FINDINGS: Moderate supraspinatus tendinosis with low-grade partial-thickness supraspinatus articular surface tear (coronal image 14 series 7) measuring 5 mm. Moderate infraspinatus tendinosis. Moderate subscapularis tendinosis. Normal teres minor tendon. No muscle atrophy. Moderate intracapsular long biceps tendinosis. Fraying of the biceps labral anchor. Labral degeneration with tiny anterior labral tear (axial image 8 series 3). Capsular ligaments intact. Normal rotator cuff interval. Mild/moderate glenohumeral cartilage loss. Moderate acromioclavicular joint arthrosis. Anterior interval preserved. No acute fracture. No acute dislocation. No acute bone destruction. Small glenohumeral joint effusion. Mild subacromial subdeltoid bursitis. Intact coracohumeral and coracoacromial ligaments. Normal quadrilateral space. Normal axillary space. Normal deltoid muscle. Normal trapezius muscle. MRI/Upper Ext Joint Only(Routine) IMPRESSION: Moderate rotator cuff tendinosis with low-grade partial-thickness articular surface tear Moderate intracapsular long biceps tendinosis with fraying of the biceps labral anchor Labral degeneration with tiny anterior labral tear Glenohumeral and AC joint arthrosis Small glenohumeral effusion and mild subacromial subdeltoid bursitis Electronically Signed: Paul Trinidad DO at 13:10 EST Tel , Service support , CC: CORDELIA Graham; Dr. aLura Cr DO Imaging Science Professor: Signed Laura Cr Work Phone: Start: 06-20-2020 End: 06-20-2020 Orthopedic Visit Report Comments: See Note; NOTES: [facility] [address] [place] [address] OFFICE VISIT Date of Service: 06/20/20 MR#: [id number] Acct: [id number] Name: JENARO WILSON Rep #: [id number] : 1960 Provider: Dr. Laura muniz DO Age/Sex: 59/F Location: [facility] Status: Signed Intake Vital Signs 06/20/20 Height 5 ft 5 in 06/20/20 Weight: 185 lb 06/20/20 BMI 30.7 Intake Visit Reasons: RIGHT SHOULDER Accompanied by: Self Is patient in pain?: Yes Allergies No Known Allergies Allergy (Verified 06/20/20 14:20) Medications cholecalciferol (vitamin D3) 1,250 mcg (50,000 unit) capsule 50,000 unit PO QWEEK #12 cap 07/31/19 [Rx Confirmed 06/20/20] hydrochlorothiazide 12.5 mg tablet 12.5 mg PO DAILY #1 tab 08/01/19 [Rx Confirmed 06/20/20] losartan 25 mg tablet 25 mg PO DAILY #1 tab 08/01/19 [Rx Confirmed 06/20/20] [facility] Medical History (Updated 06/20/20 @ 14:55 by Tamanna Ham) Vitamin D deficiency (Acute) Benign essential hypertension, age 0-18 (Chronic) Migraine headache (Chronic) Surgical History (Updated 08/01/19 @ 08:[address] Bello Escamilla MD) History of (Inactive) Family History (Updated 08/01/19 @ 08:[address] Bello Escamilla MD) Mother Hypertension Diabetes Social History (Updated 06/20/20 @ 16:[address] Isabella Chicorelli, DO) Smoking Status: Never smoker alcohol intake: current alcohol intake frequency: holidays/special occasions only what type of physical activity do you participate in: other details: gym frequency: 1-2 times per week do you feel safe at home: Yes HPI RIGHT SHOULDER: Details: Parts of this documentation were recorded by a scribe, this documentation accurately reflects the service provided and the decisions made by me, Dr. Laura Cr, 06/20/20 0041. JENARO WILSON is a 59 year old F here today to establish as a new patient. Patient was referred by Ramona Ortega NP for right shoulder pain. Patient had an x-ray of her shoulder on 05/28/2020. Onset: three months, worsening. Pain location: right posterior shoulder, that radiates to her neck, deltoid pain that stops above her elbow, bisceps. Denies any accident, injury and denies previous injections, physical therapy or surgeries. Patient has seen a chiropractor for her neck pain. Patient has been taking Aleve or Advil OTC for pain relief. Patient tried Tylenol Arthritis, however her blood pressure became elevated. Patient has been using heat applications, but states she feels stiffer after use. Pain is rated: 5/10 from the pain scale. Denies numbness and tingling into her hand. Patient currently works for [employer] in the [employer] department. ROS Const Reports system reviewed and no additional complaints, except as docu, Denies chills, Denies fatigue, Denies fever(s), Denies frequent falls, Reports headache(s), Denies weakness ENT Reports headache(s) Card Denies system reviewed and no additional complaints, except as docu, Denies chest pain, Denies shortness of breath Resp Denies system reviewed and no additional complaints, except as docu, Denies chest congestion, Denies cough, Denies shortness of breath GI Denies system reviewed and no additional complaints, except as docu, Denies abdominal pain, Denies constipation, Denies incontinent of stools, Denies loose stools Denies system reviewed and no additional complaints, except as docu, Denies urinary incontinence Musc Reports system reviewed and no additional complaints, except as docu, Reports joint pain, Reports stiffness Skin/Breast Denies system reviewed and no additional complaints, except as docu, Denies dry skin, Denies redness, Denies lesions, Denies new lesions, Denies non-healing lesions, Denies itching, Denies rash, Denies skin ulcer, Denies sores, Denies wounds Neuro Yes system reviewed and no additional complaints, except as docu, No frequent falls, Yes headache(s), Yes radiating pain, No weakness Endo Denies fatigue Ortho Exam Right Shoulder SHOULDER: TTP over humerus Assessment Plan Problems 1. Arthritis of right acromioclavicular joint M19.011 2. Right shoulder pain, unspecified chronicity M25.511 Plan Based on examination, I believe the patient has a rotator cuff tear vs pseudoparalysis d/t pain. Will order an MRI today as patient quite weak. Patient is to avoid overhead lifting until MRI results. Patient can perform pulling and pushing movements with her job. All questions answered. Patient in agreement of plan. Follow up after her MRI or sooner if pain, swelling, numbness or associated symptoms, or concerns develop. I would like to thank Ramona Ortega NP for today's referral. Orders Orders: Upper Ext Joint Only(Routine) Today M19.011, M25.511 Plan Detail Follow Up after MRI Coding Level of Care Code 77086 Diagnoses Arthritis of right acromioclavicular joint M19.011 ?Laterality: right Right shoulder pain, unspecified chronicity M25.511 ?Chronicity: unspecified 06/20/20 1606 <Electronically signed by Laura Cr DO> Date Laura Cr DO Cosigner Signature: Date (if applicable) CC: CORDELIA Graham SCUBA INSTRUCTOR Work Phone: Start: 05-28-2020 End: 05-29-2020 Shoulder min 2 Views Comments: See Note; NOTES: [facility] Imaging Services [address] [place] [address] Shoulder min 2 Views MR#: [id number] Acct: [id number] Name: JENARO WILSON Rep #: [id number] : 1960 F 59 From: Rafael Salinas PCP: CORDELIA Chacko Status: REG CLI Study: Shoulder min 2 Views Date of Exam: 05/28/20 Exam# [id number] Ordering Dr: Ramona Graham NP PARTS SALES ADVISOR-C STUDY: X-RAY - RIGHT SHOULDER REASON FOR EXAM: Right shoulder pain with abduction and external rotation. TECHNIQUE: 5 view(s) of the shoulder. COMPARISON: None. FINDINGS: Normal glenohumeral articulation. There is mild acromioclavicular arthrosis. Normal acromion. Normal humeral head and visualized proximal humerus. The soft tissue structures are unremarkable. Normal visualized pulmonary apex. RAD/Shoulder min 2 Views IMPRESSION: Mild acromioclavicular arthrosis. Electronically Signed: Rafael Medina MD at 8:30 EST Tel , Service support , CC: CORDELIA Graham Imaging Science Professor: Signed Ramona Graham Work Phone: Start: 04-08-2020 End: 04-08-2020 Endocrinology Visit Report Comments: See Note; NOTES: [facility] [address] [place] [address] OFFICE VISIT Date of Service: 04/08/20 MR#: [id number] Acct: [id number] Name: JENARO WILSON Rep #: [id number] : 1960 Provider: Maria Isabel Avery Age/Sex: 59/F Location: [facility] [place] [place] Status: Signed Intake Vital Signs 04/08/20 BMI 29.5 04/08/20 Height 5 ft 3.5 in 04/08/20 Weight: 184 lb 04/08/20 BMI 32.1 04/08/20 BP 124/86 H 04/08/20 Blood Pressure Location Lt brachial 04/08/20 Position Sitting 04/08/20 Respiration 16 04/08/20 Pulse 105 H 04/08/20 Pulse Source Monitor 04/08/20 Temp 98.3 F 04/08/20 Temp Source Temporal 04/08/20 Pulse Oximetry (%) 96 04/08/20 Oxygen Delivery Method room air Intake Visit Reasons: 9 M FU Chief Complaint: 9 MONTH F/U Is patient in pain?: No Allergies No Known Allergies Allergy (Verified 06/28/17 07:10) Post menopausal: Yes PFSH Medical History Vitamin D deficiency (Acute) Benign essential hypertension, age 0-18 (Chronic) Migraine headache (Chronic) Surgical History (Updated 08/01/19 @ 08:[address] Bello Escamilla MD) History of (Inactive) Social History (Updated 04/08/20 @ 14:[address] Bello Escamilla MD) Smoking Status: Never smoker alcohol intake: current alcohol intake frequency: a few times a month HPI HPI Chief Complaint: 9 MONTH F/U Details: JENARO WILSON, is a 59 F who presents to the office today for follow up of low vitamin D and high PTH level. At her last appointment, she stated she wasn't taking her vitamin D supplement. I put her on prescription vitamin D weekly and she states she has been compliant with that. Bone density was done after first appointment and it was normal. She feels a bit fatigued, but otherwise well. ROS Const Constitutional: Positive for fatigue; no anorexia, body ache, chills, excessive sweating, fever(s), frequent falls, headache(s), decreased energy, malaise, night sweats, snoring, weakness, weight change, sleep problems, abnormal sleep pattern, change in appetite or other Eyes Eyes: No blurry vision, change in vision, double vision, discharge, dry eyes, bulging eyes, floaters, visual disturbances, eye pain, light sensitivity, spots in vision, tunnel vision or other ENT ENT: No abnormal hearing, ear pain, ear discharge, ear pressure, hearing loss, tinnitus, dizziness/vertigo, balance problems, nosebleed/epistaxis, nasal congestion, nasal obstruction, nose pain, sinus pressure, sinus pain, nasal discharge, post nasal drip, headache(s), facial pain, dental pain, dry mouth, difficulty swallowing, bad breath, hoarseness, lip swelling, mouth lesions, mouth pain, neck pain, sore throat, tongue swelling, throat swelling or other Cardio Cardiology: No chest pain at rest, chest pain with exertion, leg pain with exertion, excessive sweating, shortness of breath, dyspnea on exertion, generalized swelling, irregular heart rhythm, lightheadedness, orthopnea, radiating jaw, neck or arm pain, fast heart rate, slow heart rate, palpitations or other Musc Musculoskeletal: No abnormal walking, joint pain, back pain, deformity, joint swelling, limited range of motion, loss of height, muscle cramps, decreased muscle mass, body aches, neck pain, numbness, radiating pain into limb, stiffness, tingling, Arthritis, restless legs, leg pain with exertion, sciatica, leg pain at night or other Neuro Neurology: No abnormal walking, abnormal hearing, abnormal movements, abnormal speech, behavioral changes, confusion, unsteady gait/balance, dizziness, weakness, frequent falls, headache(s), lack of coordination, loss of vision, memory loss, numbness, tingling, visual disturbances, restless legs, fainting, tremor(s) or other Psych Psychiatric: No abnormal sleep pattern, No lack of enjoyment, No anxiety, No behavioral changes, No change in appetite, No confusion, No depression, No difficulty concentrating, No hopelessness, No irritability, No memory loss, No mood swings, No panic attacks, No paranoia, No Thoughts of harming yourself/Others, No hallucinations, No other Luis F/Lymp Hematologic/Lymphatic: No easy bleeding, easy bruising, enlarged lymph nodes or other Resp Respiratory: No cough, change in phlegm color, chest congestion, excessive phlegm production, hemoptysis, pain on inspiration, shortness of breath, pain with cough, snoring, stridor, wheezing or other Gastro GI: No abdominal pain, belching, bloating, change in bowel habits, change in stool character, coffee ground emesis, constipation, cramping, diarrhea, heartburn, difficulty swallowing, feeling full early, excessive flatus, incontinent of stools, Vomiting blood/hematemesis, blood in stool, loose stools, Black,tarry stools, nausea/dyspepsia, pain with swallowing, vomiting or other Skin Skin: No acne, hair loss, change in hair, nail changes, boil, change in skin color, dry skin, redness, excessive hair growth, yellowing of the skin, lesions, itching, rash, skin pain, skin ulcer, sores, skin swelling, wounds or other Breast Breast: No change in breast shape, breast lump, breast pain, breast skin changes, breast swelling, nipple discharge or other Endo Endocrine: Positive for fatigue; no change in body appearance, cold intolerance, excessive sweating, flushing, heat intolerance, increased thirst/drinking, increased hunger, increased urination or other Aller/Imm Allergy/Immunologic: No food intolerance, itchy eyes, lip swelling, seasonal allergy symptoms, throat swelling, tongue swelling, hives, wheezing or other Exam Const General: cooperative, healthy appearing, comfortable, no acute distress, well developed, not cushingoid Nutritional Appearance: well nourished Orientation: alert, awake, oriented x3 [facility] Head: normal to inspection Ears: hearing grossly normal bilaterally Nose: external nose normal Mouth: oral mucosae normal Eyes General: appearance normal, both eyes and all related structures Alignment and Position: alignment normal Periorbital: periorbital findings normal Eyelids: eyelids normal Conjunctivae: conjunctivae normal Neck Neck: normal visual inspection Neck mass: No Thyroid: thyroid normal Carotids: no bruits Lymphatic: no lymphadenopathy noted Chest Chest palpation inspection: normal inspection of the chest Resp Effort Inspection: normal respiratory effort, able to speak in complete sentences, symmetric chest movement, no audible wheezes, no cough Auscultation: Bilateral: Clear to Auscultation Cardio Rate: regular rate Rhythm: regular rhythm Pulses: posterior tibial pulses present GI Inspection: normal to inspection Auscultation: normal bowel sounds Palpation: soft, no hepatosplenomegaly Skin General: no rashes or lesions noted Neuro General: alert, awake, oriented x3 Cranial Nerves: CN's II-XI intact bilaterally Cognition: normal cognition Speech: speech normal Gait: normal gait Motor: muscle tone normal throughout Extrem General: no edema Psych Appearance: grossly normal Mental Status: mental status grossly normal Mood: congruent mood Affect: normal affect Speech and Movement: speech and movement normal Attitude: cooperative Thought Process: normal Thought Content: normal Judgment: judgment good Assessment Plan Problems 1. Vitamin D deficiency E55.9 2. Hyperparathyroidism E21.3 Plan Check labs. There has been no sign of primary hyperparathyroidism, so I am hopeful that PTH has normalized. If it has, I suggest maintaining vitamin D around 45 with continued supplement. Orders Orders: Vitamin D,25 Hydroxy Today E21.3, E55.9 Calcium,Total Today E21.3 Phosphorus Today E21.3 PTHIN Today E21.3 Thyroid Stim Hormone (TSH) Today R53.83 Coding Level of Care Code Off vis,est,level 4 Diagnoses Vitamin D deficiency E55.9 Hyperparathyroidism E21.3 04/08/20 1442 <Electronically signed by Bello Escamilla MD> Date Bello Escamilla MD Cosigner Signature: Date (if applicable) CC: PARTS SALES ADVISOR-Craig Graham Start: 08-10-2019 End: 08-11-2019 Dexa Bone Density Study Comments: See Note; NOTES: [facility] Imaging Services [address] [place] [address] Dexa Bone Density Study MR#: [id number] Acct: [id number] Name: JENARO WILSON Barbara Rep #: [id number] : 1960 F 59 From: Leo Guardado MD PCP: CORDELIA Chacko Status: REG CLI Study: Dexa Bone Density Study Date of Exam: 08/10/19 Exam# [id number] Ordering Dr: Bello Escamilla MD STUDY: DUAL ENERGY X-RAY ABSORPTIOMETRY / DXA REASON FOR EXAM: Female, 59 years old. Age if juanjo- 59. Pat is 189.4# and 63.5 and quot; loss of 1-1.5 and quot; per pat. Little to no exercising. TECHNIQUE: Bone Mineral Density (BMD) measurements of lumbar spine and bilateral hips were obtained. COMPARISON: None. FINDINGS: Lumbar Spine (L1-L4): g/cm2 (1.222) / T-score (0.3) / Z-score (1.4) Findings are suggestive of normal bone density with a low fracture risk. Left Femur Total: g/cm2 (1.109) / T-score (0.8) / Z-score (1.6) Left Femoral Neck: g/cm2 (1.110) / T-score (0.5) / Z-score (1.7) Right Femur Total: g/cm2 (1.092) / T-score (0.7) / Z-score (1.5) Right Femoral Neck: g/cm2 (1.098) / T-score (0.4) / Z-score (1.6) BD/Dexa Bone Density Study IMPRESSION: The patient is considered normal as outlined below according to World [place] G Organization (WHO) criteria with a low fracture risk. Reference Information: The T-score is the number of standard deviations above or below the standard which is normal for young adults at their peak bone mineral density. The World Health Organization (WHO) interprets the T-scores as follows: Above -1 Normal bone density Between -1 and -2.5 Osteopenia Equal to / or below -2.5 Osteoporosis As a practical clinical guideline, osteopenia may be graded as follows: Mild -1 through -1.5 Moderate -1.6 through -2.0 Severe -2.1 through -2.4 The Z-score is the number of standard deviations above or below age-matched controls. A Z-score of less than -1.5 would be considered abnormal. References: 1. NIH Osteoporosis and Related Bone Diseases http://www.osteo.org 2. International Society for Clinical Densitometry http://www.iscd.org 3. National Osteoporosis Foundation http://www.nof.org Electronically Signed: Leo Guardado, at 10:42 EST , Service support , CC: CORDELIA Graham; Bello Escamilla MD Imaging Science Professor: Signed Bello Escamilla Work Phone: Start: 08-01-2019 End: 08-01-2019 Office Visit Report Comments: See Note; NOTES: [address] [place] [address] OFFICE VISIT Date of Service: 07/31/19 MR#: [id number] Acct: [id number] Patient: JENARO WILSON Rep #: [id number] : 1960 Provider: Bello Escamilla MD Age/Sex: 59/F Location: [facility] [place], [place] Status: Signed Intake Vital Signs08/01/19 BMI 29.5 07/31/19 Height 5 ft 5 in 07/31/19 Weight: 190 lb 07/31/19 BMI 31.6 07/31/19 BP 134/80 H Intake Visit Reasons: vitamin d deficiency, hupothyroidism Chief Complaint: secondary hyperparathyroidism and vitamin D deficiency Allergies No Known Allergies Allergy (Verified 06/28/17 07:10) [facility], [facility] Medical History (Updated 08/01/19 @ 08:08 by Bello Escamilla MD) Vitamin D deficiency (Acute) Benign essential hypertension, age 0-18 (Chronic) Migraine headache (Chronic) Surgical History (Updated 08/01/19 @ 08:08 by Bello Escamilla MD) History of (Inactive) Family History (Updated 08/01/19 @ 08:08 by Bello Escamilla MD) Mother Hypertension Diabetes Social History (Updated 08/01/19 @ 08:17 by Bello Escamilla MD) Smoking Status: Never smoker alcohol intake: current alcohol intake frequency: a few times a month HPI HPI Chief Complaint: secondary hyperparathyroidism and vitamin D deficiency Details: JNEARO WILSON, is a 59 F who presents to the office today for evaluation and management of low vitamin D and secondary hyperparathyroidism. She states this has been a problem for 18-24 months. She reports initially being placed on vitamin D 5,000 IU daily and then on 10,000 IU daily when that wasn't enough. She states she is currently taking 10,000 IU daily. Recent vitmamin D level is still low with elevated iPTH level. When questioned more thoroughly, she admits that she isn't really taking the vitamin D as above. She states after taking it for about 3 days, she gets gassy and then skips it for awhile. Maybe she is averaging 5,000 IU a day or less. She understands the consequences of low vitamin D. There is also some concern that she may also have early primary hyperparathyroidism because when her D was up to 33, her PTH did not completely normalize. This may be due to the levels not being stable, but will need to watch this. ROS Const Constitutional: Positive for fatigue and headache(s); no excessive sweating, fever(s), malaise, night sweats, weakness, weight change or abnormal sleep pattern Eyes Eyes: No blurry vision ENT ENT: Positive for headache(s); no tinnitus, dizziness/vertigo, difficulty swallowing, hoarseness, neck pain or sore throat Resp Respiratory: No cough or shortness of breath Cardio Cardiology: No chest pain at rest, chest pain with exertion, excessive sweating, shortness of breath, dyspnea on exertion, generalized swelling, irregular heart rhythm, lightheadedness, fast heart rate or palpitations Gastro GI: Positive for bloating; no abdominal pain, change in bowel habits, constipation, diarrhea, heartburn or difficulty swallowing Musc Musculoskeletal: Positive for joint pain, back pain and stiffness; no joint swelling, muscle cramps, muscle weakness, neck pain, numbness or tingling Skin Skin: No lesions or rash Neuro Neurology: Positive for headache(s); no abnormal speech, behavioral changes, confusion, unsteady gait/balance, dizziness, weakness, memory loss, numbness, tingling or fainting Psych Psychiatric: No abnormal sleep pattern, No behavioral changes, No confusion, No depression, No difficulty concentrating, No memory loss, No Thoughts of harming yourself/Others Endo Endocrine: Positive for fatigue; no cold intolerance, excessive sweating, flushing, heat intolerance, increased thirst/drinking or increased urination Aller/Imm Allergy/Immunologic: No seasonal allergy symptoms Luis F/Lymp Hematologic/Lymphatic: No easy bleeding, easy bruising or enlarged lymph nodes Exam Const General: cooperative, healthy appearing, comfortable, no acute distress Nutritional Appearance: well nourished Orientation: alert, awake, oriented x3 [facility] Head: normocephalic, atraumatic Ears: hearing grossly normal bilaterally, external ears normal Nose: external nose normal Face and sinus: normal facial exam Mouth: oral mucosae normal Eyes General: appearance normal, both eyes and all related structures Pupils: PERRL EOM: EOM intact bilaterally Neck Neck: normal visual inspection, no lymphadenopathy Neck mass: No Thyroid: thyroid normal Carotids: no bruits Chest Chest palpation AND inspection: normal inspection of the chest Resp Effort AND Inspection: normal respiratory effort, able to speak in complete sentences Auscultation: Bilateral: Clear to Auscultation Cardio Rate: regular rate Rhythm: regular rhythm Heart Sounds: S1 normal, S2 normal Pulses: posterior tibial pulses present, dorsalis pedis pulses present GI Palpation: soft, no hepatosplenomegaly Musc Musculoskeletal: No muscle weakness Skin General: no erythema Lesions: other (no lipohypertophy) Neuro General: gait normal, CN's II-XI intact bilaterally Cognition: normal cognition Speech: speech normal Gait: normal gait Extrem General: no edema Psych Appearance: well kempt Mood: congruent mood Affect: normal affect Speech and Movement: speech and movement normal Attitude: cooperative Thought Process: normal Thought Content: normal Assessment AND Plan Problems 1. Secondary hyperparathyroidism N25.81 2. Vitamin D deficiency E55.9 Plan After vitamin D levels are normalized, will recheck PTH levels to be sure she doesn't also have primary hyper para. Order DEXA bone density. Stop daily vitamin D replacement and start RX 50,000 IU weekly. Please call me if you cannot tolerate this. Recheck labs in 2 months. Orders Orders: Medications New: Coding Level of Care Code Off vis,new,level 4 Diagnoses Secondary hyperparathyroidism N25.81 Vitamin D deficiency E55.9 08/01/19 0817 <Electronically signed by Bello Escamilla MD> Date Bello Gaming Signature: Date (if applicable) CC: PARTS SALES ADVISOR-Craig Graham Start: 07-07-2018 End: 07-07-2018 SCREENING MAMM (CAD), BILAT Comments: See Note; NOTES: [facility] Imaging Services [address] [place] [address] SCREENING MAMM (CAD), BILAT MR#: [id number] Acct: [id number] Name: JENARO WILSON Rep #: [id number] : 1960 F 57 From: Leo Guardado MD PCP: Ramona Graham NP Status: REG CLI Study: SCREENING MAMM (CAD), BILAT Date of Exam: 07/07/18 Exam# [id number] Ordering Dr: Ramona Graham PARTS SALES ADVISOR-C MAMMOGRAPHY - BILATERAL SCREENING REASON FOR EXAM: Female, 57 years old. Routine annual screening examination. PERTINENT HISTORY: Non-contributory. TECHNIQUE: Digital bilateral breast stephani (3D mammographic acquisition) in the CC and [...] delay biopsy of a clinically suspicious abnormality. [id number] Electronically Signed: Leo Guardado MD at 15:01 EST Tel [phone], Service support , CC: Ramona Graham NP Imaging Science Professor: Signed Ramona Graham Work Phone: Start: 04-29-2018 End: 04-30-2018 Parathyroid scan Comments: See Note; NOTES: [facility] Imaging Services [address] [place] [address] Parathyroid Scan MR#: [id number] Acct: [id number] Name: JENARO WILSON Rep #: [id number] : 1960 F 57 From: Tobias Nunez DO PCP: Ramona Graham NP Status: REG CLI Study: Parathyroid Scan Date of Exam: 04/29/18 Exam# [id number] Ordering Dr: Ramona Graham PARTS SALES ADVISOR-C CLINICAL: 57-year-old female with history of elevation [...] EDT Tel , Service support , CC: Ramona Graham NP Imaging Science Professor: Signed Ramona Graham Work Phone: Start: 06-28-2017 End: 06-28-2017 Operative Report Comments: See Note; NOTES: [facility] Medical Records Department [address] [place] [address] Operative Report 06/28/17 0822 MR#: [id number] Acct: [id number] Name: JENARO WILSON Rep #: [id number] : 1960 56 From: Shubham Paredes MD PCP: Ramona Graham NP Status: REG CLI Y Location: EN Problem List (1) Screen for colon cancer Status: Acute Report of Operation Date of Procedure: 06/28/17 Pre-Operative Diagnosis: Screening colonoscopy Post-Operative Diagnosis: Same Surgery/Procedure Performed:: Colonoscopy steamboat pilot: None Type of Anesthesia:: MAC Anesthesiologist: Joselito Alvarez Special Medications: 1 amp of glucagon Specimen's removed: None Estimated Blood Loss (mL): None Description of Procedure: Patient brought into the endoscopy suite placed in the left lateral decubitus position. She was given graded anesthesia. Colonoscope was inserted into the rectum and directed through the sigmoid colon, descending colon, transverse colon, ascending colon, to the cecum. Operative findings: 1. Cecum: Normal appearance no mass lesions normal ileocecal valve. 2. Ascending colon: Normal appearance no mass lesions. 3. Transverse colon: Normal appearance no mass lesions. 4. Descending colon: Normal appearance no mass [...] ordered:: Treatment Not Indicated Code Visit 40xxx-49xxx: 04166 Diagnostic colonoscopy 06/28/17 0826 <Electronically signed by Shubham Paredes MD> Date Shubham Paredes MD CC: Ramona Graham NP; rachana greene; Shubham Paredes MD Signed Ramona Graham Start: 06-28-2017 End: 06-28-2017 History and Physical Exam Comments: See Note; NOTES: [facility] Medical Records Department [address] [place] [address] History and Physical 06/28/17818 MR#: [id number] Acct: [id number] Name: JENARO WILSON Rep #: [id number] : 1960 56 From: Shubham Paredes MD PCP: Ramona Graham NP Status: REG CLI Y Location: EN Problem List (1) Screen for colon cancer Status: Acute History of Present Illness Date of Admission: 06/28/17 The patient is a 56 year old F who presents for a screening colonoscopy. Past Medical History Allergies No Known Allergies Allergy (Verified 06/28/17 07:10) HISTOLOGY SPECIALIST History: - - Patient has had a section Smoking Status: Never smoker - *Family History Maternal History Items: Heart Disease, Hypertension Review of Systems Constitutional: Denies: Chills, Fever, Weight Change Eyes: Denies: Blurred vision, Pain, Redness, Vision Change HEENT: Denies: Dysphasia, Ear Pain, Eye Pain, Head Aches, Hearing Changes, Sore Throat Cardiovascular: Denies: Chest Pain, Chest Pressure, Chest Tightness, Palpitations Respiratory: Denies: Cough, Hemoptysis, Shortness of breath at rest, Shortness of breath upon exertion, Wheezing Gastrointestinal: Denies: Abdominal Pain, Constipation, Diarrhea, Hematemesis, Nausea, Melena, Vomiting Genitourinary: Denies: Dysuria, Frequency, Hematuria, Urgency Musculoskeletal: Denies: Joint Pain Skin: Denies: Lesions, Rash, Wounds Neurological: Denies: Change in Speech, Confusion, Numbness, Tingling, Seizures Psychiatric: Denies: Anxiety, Depression Endocrine: Denies: Heat/ Cold Intolerance, Polydipsia, Polyuria Hematologic/ Lymphatic: Denies: Adenopathy, Easy Bruising VTE Information - Inpt Only VTE Present on Admission: No VTE Mechan Device Prophylaxis: None VTE Pharm Prophylaxis ordered?: No Reason prophylaxis not ordered:: Treatment Not Indicated Patient Problems: Active and Suspected Problems Screen for colon cancer (Acute) - Physical Exam Lungs: Clear to auscultation Cardiovascular: Regular rate, Regular Rhythm, No murmurs Abdomen: Bowel Sounds Present, Soft, Non Tender, Non-Distended Vital Signs Temp Pulse Resp BP Pulse Ox 98.2 F 84 20 H 109/85 H 95 06/28/17 07:13 06/28/17 07:13 06/28/17 07:13 06/28/17 07:13 06/28/17 07:13 Oxygen Delivery Method Room Air Weight: 177 lb 7.554 oz Body Mass Index (BMI) 29.5 Assessment/Plan Active and Suspected Problems Screen for colon cancer (Acute) Assessment is screening colonoscopy Plan is to perform a colonoscopy. 06/28/17 08 <Electronically signed by Shubham Paredes MD> Date Shubham Paredes MD [facility] Signature: Date (if applicable) CC: Ramona Graham PARTS SALES ADVISOR; Shubham Paredes MD Signed Ramona Graham Start: 12-08-2016 End: 12-08-2016 Cerv Spine 4 or 5 Views Comments: See Note; NOTES: [facility] Imaging Services [address] [place] [address] Verdana 4d Cerv Spine 4 or 5 Views MR#: [id number] Acct: [id number] Name: JENARO WILSON Rep #: [id number] : 1960 F 56 From: Sarah Flor MD PCP: Ramona Graham Status: REG CLI Study: Cerv Spine 4 or 5 Views Date of Exam: 12/08/16 Exam# [id number] Ordering Dr: Vianey De La Garza STUDY: X-RAY - CERVICAL SPINE REASON FOR EXAM: Female, 56 years old. Left-sided neck pain denies trauma TECHNIQUE: 6 view(s) of the cervical spine were obtained. COMPARISON: None FINDINGS: There are degenerative changes of the anterior atlantoaxial articulation. There is robust degenerative change at the dens space. Normal odontoid process. Normal cervical lordosis. There is disc space narrowing and spondylosis at the level of C5-C6. Normal visualized intervertebral neuroforamina. The soft tissue structures are unremarkable. RAD/Cerv Spine 4 or 5 Views IMPRESSION: Degenerative change cervical spine as detailed above. Electronically Signed: Sarah Flor MD at 22:53 EDT Tel , Service support , CC: Vianey De La Garza; Ramona Graham Imaging Science Professor: Signed Vianey De La Garza Work Phone: Start: 11-16-2013 End: 11-17-2013 Brain/Head W/WO Contrast Comments: See Note; NOTES: [facility] Imaging Services [address] [place] [address] CAT Scan Report MR#: [id number] Acct: [id number] Name: JENARO WILSON Rep #: [id number] : 1960 F 53 From: Ashley Stover MD PCP: Jaimee Jarrett DO Status: REG CLI Study: Brain/Head W/WO Contrast Date of Exam: 11/16/13 Exam# [id number] Ordering Dr: Jaimee Jarrett DO STUDY: CT [...] of 100 ml of Isovue 300 contrast material. COMPARISON: None. FINDINGS: The lateral and third ventricles are normal in size. There is mild widening of the frontal cortical sulci. Normal white matter tracts of the cerebral hemispheres. Normal basal ganglia and thalami. Normal appearing brainstem. Mild volume loss is seen in the cerebellum. There is no intracranial hemorrhage or acute infarction. No abnormal enhancement or mass lesion is identified. No lesion identified in the calvarium. Normal visualized paranasal sinuses. IMPRESSION: No acute process identified. Mild involutional changes. Electronically Signed: Ashley Pink MD at 13:39 EDT , Service support [phone], CC: Jaimee Jarrett DO Imaging Science Professor: Signed Jaimee Jarrett Work Phone: Start: 10-13-2013 End: 10-16-2013 Bilat Scrn Digital & CAD Comments: See Note; NOTES: [facility] Imaging Services [address] [place] [address] Breast Imaging Report MR#: [id number] Acct: [id number] Name: JENARO WILSON Rep #: [id number] : 1960 F 53 From: Leo Guardado MD PCP: Jaimee Jarrett DO Status: REG CLI Exam# [id number] Ordering Dr: Jaimee Jarrett DO MAMMOGRAPHY - BILATERAL SCREENING REASON FOR EXAM: Female, 53 years old. Routine annual screening examination. PERTINENT HISTORY: Non-contributory. TECHNIQUE: Digital examination. Mediolateral oblique (MLO) and craniocaudad (CC) views of both breasts were obtained. CAD: CAD was performed on [...] bilateral screening mammogram. Yearly follow-up recommended. (A) ASSESSMENT CATEGORY: BIRADS Category 2: Benign finding(s). A letter regarding these results will be sent to the patient by the facility within 30 days. Approximately 10% of breast cancers are not detected by mammography. A normal mammogram should not delay biopsy of a clinically suspicious abnormality. Electronically Signed: Leo Guardado M.D. at 7:50 EDT , Service support [phone], CC: Jaimee Jarrett DO Imaging Science Professor: Signed Jaimee Jarrett Work Phone: Start: 03-30-2006 Mammography Jacob Farooq MD Work Phone: ascending aorta arthroplasty, PFO closure Domenica Slarb FLAT HAMMERER Comment on above: 2021 ascending aorta arthroplasty, PFO closure Domenica Slarb FLAT HAMMERER Comment on above: 2021 section Terri Lock lear section Terri Lock lear section Mojgan Cou lter section Esha Gomez s section Ervin Fracisco s section Ervin Nik h section Ervin Fracisco s FLAT HAMMERER section Jaimee ruth DO Work Phone: section Amber diallo SHOP TECH section Domenica Slar b FLAT HAMMERER section Isela Grav ius SHOP TECH section Domenica Slar b FLAT HAMMERER section Domenica Slar b FLAT HAMMERER Repair of musculotendinous cuff of shoulder Isela Gravius SHOP TECH Comment on above: Repair of musculotendinous cuff of shoulder Domenica Slarb FLAT HAMMERER Comment on above: Repair of musculotendinous cuff of shoulder Domenica Slarb FLAT HAMMERER Comment on above: Replacement of aorti c valve Domenica Slarb FLAT HAMMERER Comment on above: 2021 Replacement of aorti c valve Domenica Slarb FLAT HAMMERER Comment on above: 2021 Screening for osteoporosis Screening for osteoporosis (Renamed from Encounter for screening for osteoporosis) Ramona Graham Screening for osteoporosis Screening for osteoporosis (Renamed from Encounter for screening for osteoporosis) Ramona Graham SCUBA INSTRUCTOR Work Phone: Screening for osteoporosis Screening for osteoporosis (Renamed from Encounter for screening for osteoporosis) Asa Alba SCUBA INSTRUCTOR Work Phone: Plan of Treatment Date Care Activity Detail Author Start: 07-07-2025 DIABETES SCREEN DIABETES SCREEN [facility] Start: 06-30-2025 DIABETES SCREEN DIABETES SCREEN [facility] Start: 06-24-2025 DIABETES SCREEN DIABETES SCREEN [facility] Start: 07-07-2023 BP CONTROLLED (<130/80) BP CONTROLLED (<130/80) [facility] Start: 06-24-2023 BP CONTROLLED (<130/80) BP CONTROLLED (<130/80) [facility] Start: 03-01-2023 Assay of parathormone PARATHORMONE (27143) [facility]; [facility] Work Phone: Start: 03-01-2023 Provider Instructions for Treatment [facility]; [facility] Work Phone: Start: 02-19-2023 Procedure Education Eprescribed prescriptions (G8553) [facility]; [facility] Work Phone: Start: 10-08-2022 Assay of ferritin Ferritin (14111) [facility]; [facility] Work Phone: Start: 10-08-2022 Assay of folic acid serum Folic Acid Serum (51073) [facility]; [facility] Work Phone: Start: 10-08-2022 Assay of iron Iron (19851) [facility]; [facility] Work Phone: Start: 10-08-2022 Cyanocobalamin vitamin b-12 Vitamin B-12 (cyanocobalamin) (92695) [facility]; [facility] Work Phone: Start: 10-08-2022 Iron binding capacity Iron Binding Capacity (TIBC) (79112) [facility]; [facility] Work Phone: Start: 09-18-2022 Patient referral to dietitian [facility] Start: 08-28-2022 Assay of ferritin FERRITIN (66657) [facility]; [facility] Work Phone: Start: 08-28-2022 Assay of iron IRON & TOTAL IRON BINDING CAPACITY (86452) [facility]; [facility] Work Phone: Start: 08-28-2022 Cyanocobalamin vitamin b-12 VITAMIN B12 AND FOLATES (41952) [facility]; [facility] Work Phone: Start: 08-28-2022 Procedure Education Eprescribed prescriptions (G8553) [facility]; [facility] Work Phone: Start: 08-28-2022 Provider Instructions for Treatment [facility]; [facility] Work Phone: Start: 08-04-2022 Patient referral [facility] Work Phone: Start: 07-19-2022 DEPRESSION ASSESSMENT DEPRESSION ASSESSMENT [facility] Start: 06-25-2022 End: 08-25-2022 STAPH AUREUS PCR [facility] Work Phone: Comment on above: Expected: 06/25/2022, Expires: 3 Start: 05-19-2022 Notification of physician [facility] Start: 05-19-2022 Patient discharge [facility] Start: 05-19-2022 Provision of activity privileges [facility] Start: 05-19-2022 Scheduling [facility] Start: 05-19-2022 Taking patient vital signs [facility] Start: 05-19-2022 Vascular disease risk assessment [facility] Start: 05-19-2022 [facility] Start: 03-19-2022 Influenza vaccination INFLUENZA (#1) [facility] Start: 02-20-2022 Procedure Education Eprescribed prescriptions (G8553) [facility]; [facility] Work Phone: Start: 01-23-2022 Hemoglobin glycosylated a1c HGB A1C (77534) [facility]; [facility] Work Phone: Start: 01-23-2022 Lipid panel LIPID PANEL (57822) [facility]; [facility] Work Phone: Start: 01-23-2022 Urine albumin quantitative MICROALBUMIN: CREATININE RATIO (72755) AND (52437) [facility]; [facility] Work Phone: Start: 01-23-2022 Procedure Education Eprescribed prescriptions (G8553) [facility]; [facility] Work Phone: Start: 01-23-2022 Urine albumin quantitative MICROALBUMIN: CREATININE RATIO (81173) AND (36603) [facility] Work Phone: Start: 01-23-2022 Hemoglobin glycosylated a1c HGB A1C (80231) [facility]; [facility] Work Phone: Start: 01-23-2022 Lipid panel LIPID PANEL (96111) [facility]; [facility] Work Phone: Start: 01-23-2022 25 hydroxy includes fractions if performed CALCIFEDIOL (43721) [facility]; [facility] Work Phone: Start: 01-16-2022 Potassium serum plasma/whole blood POTASSIUM SERUM (74548) [facility]; [facility] Work Phone: Start: 12-31-2021 Urnls dip stick/tablet reagent auto microscopy URINALYSIS, W/ MICRO (33722) [facility]; [facility] Work Phone: Start: 12-31-2021 Assay of thyroid stimulating hormone tsh TSH (96264) [facility]; [facility] Work Phone: Start: 12-31-2021 Blood count complete auto&auto difrntl wbc CBC W/AUTO DIFF WBC (90214) [facility]; [facility] Work Phone: Start: 12-31-2021 Comprehensive metabolic panel METABOLIC PANEL, COMPREHENSIVE (86640) [facility]; [facility] Work Phone: Start: 12-31-2021 Procedure Education Eprescribed prescriptions (G8553) [facility]; [facility] Work Phone: Start: 12-16-2021 Basic metabolic panel calcium total Metabolic Panel, Basic (30756) [facility]; [facility] Work Phone: Comment on above: 1 week Start: 12-16-2021 Procedure Education Eprescribed prescriptions (G8553) [facility]; [facility] Work Phone: Start: 07-19-2021 DEPRESSION ASSESSMENT DEPRESSION ASSESSMENT [facility] Start: 07-04-2021 Procedure Education Eprescribed prescriptions (G8553) [facility]; [facility] Work Phone: Start: 07-04-2021 Provider Instructions for Treatment Follow up in 4 months front desk attendant to call and schedule and fax today's orders to hospital lab [facility] Work Phone: Start: 07-04-2021 Blood count complete automated CBC & PLATELETS (AUTO) (14798) [facility]; [facility] Work Phone: Comment on above: October 2021 Start: 07-04-2021 Comprehensive metabolic panel Metabolic Panel, Comprehensive (18537) [facility]; [facility] Work Phone: Comment on above: october 2021 Start: 07-04-2021 C-reactive protein high sensitivity C-REACT PROT HIGH SENS(hsCRP) (93423) [facility]; [facility] Work Phone: Comment on above: October 2021 Start: 07-04-2021 Sedimentation rate rbc non-automated SED RATE ERYTHROCYTE (55616) [facility]; [facility] Work Phone: Comment on above: October 2021 Start: 07-04-2021 Assay of haptoglobin quantitative HAPTOGLOBIN (45209) [facility]; [facility] Work Phone: Comment on above: October 2021 Start: 07-04-2021 Lactate dehydrogenase ldh LDH (LD) (LACTATE DEHYDROGENASE) (53779) [facility]; [facility] Work Phone: Comment on above: October 2021 Start: 06-11-2021 Sedimentation rate rbc non-automated [facility]; [facility] Work Phone: Start: 06-11-2021 Assay of haptoglobin quantitative HAPTOGLOBIN (89121) [facility]; [facility] Work Phone: Start: 06-11-2021 Blood count complete auto&auto difrntl wbc CBC, PLATELETS & AUT DIFF (12291) [facility]; [facility] Work Phone: Start: 06-10-2021 Lactate dehydrogenase isoenzymes sep&christen LDH TOTAL & ISOENZYMES (25793) [facility]; [facility] Work Phone: Comment on above: May 20, 2021 Start: 06-10-2021 Comprehensive metabolic panel Metabolic Panel, Comprehensive (14027) [facility]; [facility] Work Phone: Comment on above: Give lab slip to pt today to be done Jun 10, 2021 Start: 05-27-2021 Provider Instructions for Treatment Follow up if no improvement or if symptoms worsen [facility]; [facility] Work Phone: Start: 05-13-2021 Procedure Education Eprescribed prescriptions (G8553) [facility]; [facility] Work Phone: Start: 04-04-2021 Procedure Education Eprescribed prescriptions (G8553) [facility]; [facility] Work Phone: Start: 04-04-2021 Provider Instructions for Treatment [facility] Work Phone: Start: 03-21-2021 Procedure Education Eprescribed prescriptions (G8553) [facility]; [facility] Work Phone: Start: 03-21-2021 Provider Instructions for Treatment Follow up in 2 weeks virtual [facility]; [facility] Work Phone: Start: 03-21-2021 Urine albumin quantitative MICROALBUMIN: CREATININE RATIO (22597) AND (82169) [facility]; [facility] Work Phone: Start: 03-21-2021 Assay of parathormone PARATHORMONE (58522) [facility]; [facility] Work Phone: Start: 03-21-2021 25 hydroxy includes fractions if performed CALCIFEDIOL (33089) [facility]; [facility] Work Phone: Start: 03-21-2021 Lactate dehydrogenase isoenzymes sep&christen LDH TOTAL & ISOENZYMES (33796) [facility]; [facility] Work Phone: Start: 03-21-2021 Assay of thyroid stimulating hormone tsh TSH (THYROID STIMULATING HORMONE) (40574) [facility]; [facility] Work Phone: Start: 10-29-2020 COVID-19 VACCINE (3 - Booster for Moderna series) COVID-19 VACCINE (3 - Booster for Moderna series) [facility] Start: 05-28-2020 Procedure Education Eprescribed prescriptions (G8553) [facility] Work Phone: Start: 03-05-2020 Procedure Education Eprescribed prescriptions (G8553) [facility] Work Phone: Start: 03-05-2020 Provider Instructions for Treatment Follow up in 1 year or as needed [facility] Work Phone: Start: 06-05-2019 Procedure Education Eprescribed prescriptions (G8553) [facility] Work Phone: Start: 06-05-2019 Provider Instructions for Treatment [facility] Work Phone: Start: 05-29-2019 Gonadotropin luteinizing hormone GONADOTROPIN-LH (14131) [facility] Work Phone: Start: 05-29-2019 Gonadotropin follicle stimulating hormone GONADOTROPIN-FSH (75020) [facility] Work Phone: Start: 05-29-2019 Assay of parathormone PARATHORMONE (42250) [facility] Work Phone: Start: 05-29-2019 25 hydroxy includes fractions if performed CALCIFEDIOL (17994) [facility] Work Phone: Start: 02-24-2019 Procedure Education Eprescribed prescriptions (G8553) [facility] Work Phone: Start: 02-24-2019 Provider Instructions for Treatment Follow up in 3 months for well woman after May 29 [facility] Work Phone: Start: 02-17-2019 Assay of magnesium MAGNESIUM (82110) [facility]; [facility] Work Phone: Start: 02-17-2019 Magnesium [Mass/Vol] MAGNESIUM (31243) [facility] Work Phone: Start: 12-26-2018 25 hydroxy includes fractions if performed CALCIFEDIOL (70464) [facility] Work Phone: Start: 12-26-2018 Assay of parathormone PARATHORMONE (53361) [facility] Work Phone: Start: 10-28-2018 Lipid panel LIPID PANEL (09822) [facility] Work Phone: Start: 10-28-2018 Gonadotropin luteinizing hormone GONADOTROPIN-LH (29911) [facility] Work Phone: Start: 10-28-2018 Gonadotropin follicle stimulating hormone GONADOTROPIN-FSH (83131) [facility] Work Phone: Start: 10-28-2018 Urnls dip stick/tablet reagent auto microscopy URINALYSIS, W/ MICRO (18587) [facility] Work Phone: Start: 10-28-2018 Assay of thyroid stimulating hormone tsh TSH (59540) [facility]; [facility] Work Phone: Start: 10-28-2018 Thyrotropin Qn TSH (97072) [facility] Work Phone: Start: 10-28-2018 Blood count complete auto&auto difrntl wbc CBC, Platelets & Auto Diff (33048) [facility] Work Phone: Start: 10-28-2018 Comprehensive metabolic panel Metabolic Panel, Comprehensive (03844) [facility] Work Phone: Start: 10-28-2018 Assay of phosphorus inorganic PHOSPHORUS (69721) [facility]; [facility] Work Phone: Start: 10-28-2018 Phosphate mass conc PHOSPHORUS (47748) [facility] Work Phone: Start: 10-28-2018 25 hydroxy includes fractions if performed CALCIFEDIOL (71391) [facility] Work Phone: Start: 10-28-2018 Assay of parathormone PARATHORMONE (05686) [facility] Work Phone: Start: 09-08-2018 25 hydroxy includes fractions if performed CALCIFEDIOL (66239) [facility] Work Phone: Start: 07-01-2018 Assay of parathormone PARATHORMONE (23065) [facility] Work Phone: Start: 07-01-2018 25 hydroxy includes fractions if performed CALCIFEDIOL (12448) [facility] Work Phone: Start: 05-06-2018 Procedure Education Eprescribed prescriptions (G8553) [facility] Work Phone: Start: 05-06-2018 Provider Instructions for Treatment Follow up in 3 months [facility] Work Phone: Start: 04-15-2018 Procedure Education Eprescribed prescriptions (G8553) [facility] Work Phone: Start: 04-15-2018 Provider Instructions for Treatment Follow up - Make appt after diagnostic tests [facility] Work Phone: Start: 02-03-2018 Procedure Education Eprescribed prescriptions (G8553) [facility] Work Phone: Start: 02-03-2018 Provider Instructions for Treatment [facility] Work Phone: Start: 02-03-2018 Assay of phosphorus inorganic PHOSPHORUS (50631) [facility]; [facility] Work Phone: Comment on above: Mar 2018 Start: 02-03-2018 Phosphate mass conc PHOSPHORUS (33973) [facility] Work Phone: Comment on above: Mar 2018 Start: 02-03-2018 Assay of parathormone PARATHORMONE (12979) [facility] Work Phone: Comment on above: Mar 2018 Start: 02-03-2018 25 hydroxy includes fractions if performed CALCIFEDIOL (05892) [facility] Work Phone: Comment on above: Mar 2018 Start: 02-03-2018 Cytp cerv/vag auto thin layer prep mnl screen Thin prep Pap (38697) (no STD testing) [facility] Work Phone: Start: 01-21-2018 Procedure Education Eprescribed prescriptions (G8553) [facility] Work Phone: Start: 01-21-2018 Provider Instructions for Treatment [facility] Work Phone: Start: 01-21-2018 25 hydroxy includes fractions if performed CALCIFEDIOL (99023) [facility] Work Phone: Start: 01-21-2018 Assay of parathormone PARATHORMONE (47971) [facility] Work Phone: Start: 03-01-2017 Procedure Education Eprescribed prescriptions (G8553) [facility] Work Phone: Start: 03-01-2017 Provider Instructions for Treatment [facility] Work Phone: Start: 12-08-2016 Procedure Education Eprescribed prescriptions (G8553) [facility] Work Phone: Start: 12-08-2016 Provider Instructions for Treatment Follow up if no improvement or if symptoms worsen [facility] Work Phone: Start: 03-03-2016 Provider Instructions for Treatment [facility] Work Phone: Start: 03-06-2015 Procedure Education Eprescribed prescriptions (G8553) [facility] Work Phone: Start: 03-06-2015 Urnls dip stick/tablet reagent auto microscopy URINALYSIS, W/ MICRO (84342) [facility] Work Phone: Start: 03-06-2015 Culture bacterial quanttative colony count urine URINE FREYA CULTURE (CHRISTEN COL COUNT) (57742) [facility] Work Phone: Start: 03-30-2014 Potassium molar conc Potassium Serum (52428) [facility] Work Phone: Start: 03-30-2014 Potassium serum plasma/whole blood Potassium Serum (02073) [facility]; [facility] Work Phone: Start: 03-30-2014 Culture bacterial quanttative colony count urine URINE FREYA CULTURE (CHRISTEN COL COUNT) (28939) [facility] Work Phone: Start: 03-30-2014 Urnls dip stick/tablet reagent auto microscopy URINALYSIS, W/ MICRO (22719) [facility] Work Phone: Start: 02-02-2014 Procedure Education Eprescribed prescriptions (G8553) [facility] Work Phone: Start: 02-02-2014 Comprehensive metabolic panel METABOLIC PANEL, COMPREHENSIVE (90586) [facility] Work Phone: Start: 02-02-2014 25 hydroxy includes fractions if performed Vitamin D Hydroxy (89129) [facility] Work Phone: Start: 12-15-2013 25 hydroxy includes fractions if performed CALCIFEDIOL (85724) [facility] Work Phone: Start: 07-03-2013 Assay of free thyroxine T4, FREE (THYROXINE) (40273) [facility]; [facility] Work Phone: Start: 07-03-2013 Assay of triiodothyronine t3 free T3, FREE (TRIDOTHYRONINE) (83603) [facility]; [facility] Work Phone: Start: 07-03-2013 T3 free mass conc T3, FREE (TRIDOTHYRONINE) (98529) [facility] Work Phone: Start: 07-03-2013 T4 free mass conc T4, FREE (THYROXINE) (62139) [facility] Work Phone: Start: 07-03-2013 Assay of thyroid stimulating hormone tsh TSH (61832) [facility]; [facility] Work Phone: Start: 07-03-2013 Thyrotropin Qn TSH (77464) [facility] Work Phone: Start: 07-03-2013 Assay of parathormone PARATHORMONE (01456) [facility] Work Phone: Start: 07-03-2013 Lipid panel LIPID PANEL (34286) [facility] Work Phone: Start: 07-03-2013 Urine albumin quantitative MICROALBUMIN: CREATININE RATIO (42116) AND (16852) [facility] Work Phone: Start: 07-03-2013 Blood count manual cell count each CBC WITH MANUAL DIFF (76481) [facility] Work Phone: Start: 07-03-2013 Comprehensive metabolic panel METABOLIC PANEL, COMPREHENSIVE (21704) [facility] Work Phone: Start: 03-29-2013 Provider Instructions for Treatment [facility] Work Phone: Start: 03-15-2013 Provider Instructions for Treatment Follow up in 2 weeks [facility] Work Phone: Start: 03-15-2013 Bilirubin mass conc Bilirubin, total (12911) [facility] Work Phone: Start: 03-15-2013 Bilirubin total Bilirubin, total (77876) [facility]; [facility] Work Phone: Start: 03-15-2013 Bilirubin direct Bilirubin, Direct (42082) [facility]; [facility] Work Phone: Start: 03-15-2013 Bilirubin.direct mass conc Bilirubin, Direct (10398) [facility] Work Phone: Start: 01-09-2013 Provider Instructions for Treatment Follow up in 4 months for Gen Med [facility] Work Phone: Start: 09-30-2012 Provider Instructions for Treatment Follow up in 3 months [facility] Work Phone: Start: 07-08-2012 Provider Instructions for Treatment [facility] Work Phone: Start: 05-27-2012 Provider Instructions for Treatment Follow up in 6 weeks [facility] Work Phone: Start: 05-27-2012 Assay of renin RENIN (48761) [facility] Work Phone: Start: 05-27-2012 Metanephrines METANEPHRINES - URINE (54560) [facility] Work Phone: Start: 05-27-2012 Catecholamines total urine CATECHOLAMINES TOTAL, URINE (96455) [facility] Work Phone: Start: 05-27-2012 Assay of vanillylmandelic acid urine URINE VMA (20975) [facility] Work Phone: Start: 04-29-2012 Provider Instructions for Treatment Follow up in 1 month [facility] Work Phone: Start: 04-15-2012 Provider Instructions for Treatment [facility] Work Phone: Start: 04-13-2012 Assay of thyroid stimulating hormone tsh TSH (51359) [facility]; [facility] Work Phone: Start: 04-13-2012 Thyrotropin Qn TSH (05685) [facility] Work Phone: Start: 04-13-2012 Urnls dip stick/tablet reagent auto microscopy URINALYSIS, W/ MICRO (55464) [facility] Work Phone: Start: 04-13-2012 Creatinine other source CREATININE, URINE (20037) [facility] Work Phone: Start: 04-13-2012 Urine albumin quantitative [facility] Work Phone: Start: 04-13-2012 Blood count manual cell count each CBC WITH MANUAL DIFF (44600) [facility] Work Phone: Start: 04-13-2012 Provider Instructions for Treatment [facility] Work Phone: Start: 2011 SHINGRIX VACCINE (1 of 2) SHINGRIX VACCINE (1 of 2) [facility] Start: 03-30-2007 Mammography MAMMOGRAM [facility] Start: 2006 COLOGUARD (FIT-DNA) COLOGUARD (FIT-DNA) [facility] Start: 2006 Colonoscopy COLONOSCOPY [facility] Start: 2006 COLORECTAL CANCER SCREENING COLORECTAL CANCER SCREENING [facility] Start: [address] COLONOGRAPHY [facility] Start: 2006 DIABETES SCREEN DIABETES SCREEN [facility] Start: 2006 FECAL OCCULT BLOOD FECAL OCCULT BLOOD [facility] Start: 2006 LIPID SCREEN LIPID SCREEN [facility] Start: 2006 SIGMOIDOSCOPY SIGMOIDOSCOPY [facility] Start: 1991 HPV TESTING HPV TESTING [facility] Start: 1982 PAP TESTING PAP TESTING [facility] Start: 1980 Urine microalbumin profile DTAP,TDAP,TD (1 - Tdap) [facility] Start: 1979 ANNUAL PCP TEAM CHRONIC DISEASE VISIT ANNUAL PCP TEAM CHRONIC DISEASE VISIT [facility] Start: 1979 HEPATITIS C SCREENING HEPATITIS C SCREENING [facility] Start: 1979 HIV SCREENING HIV SCREENING [facility] Start: 01-11-1962 COVID-19 VACCINE (#1) COVID-19 VACCINE (#1) [facility] End: 06-25-2023 ECG COMPLETE ECG COMPLETE ECG Routine Aortic valve disorder 1 Occurrences starting 06/25/2022 until 06/25/2023 [facility] Work Phone: Comment on above: 1 Occurrences starting 06/25/2022 until 06/25/2023 End: 06-25-2023 Echocardiography ECHO Cardiology Routine Aortic valve disorder 1 Occurrences starting 06/25/2022 until 06/25/2023 [facility] Work Phone: Comment on above: 1 Occurrences starting 06/25/2022 until 06/25/2023 Patient referral [facility] Work Phone: SPIROMETRY BASELINE ONLY SPIROME TRY BASELINE ONLY PFT Routine Disorder of artery or arteriole (HCC) Pre-operative cardiovascular examination Aortic valve disorder 06/24/2022 11:06 AM EST [facility] Work Phone: [facility] Work Phone: [facility] Work Phone: [facility] Work Phone: [facility] Work Phone: [facility] Work Phone: [facility] Work Phone[facility] Work Phone: [facility] Work Phone: [facility] Work Phone: [facility] Work Phone: [facility] Work Phone: [facility] Work Phone: [facility] Work Phone: [facility] Work Phone: [facility] Work Phone: [facility] Work Phone: [facility] Work Phone: [facility] Work Phone[facility] Work Phone[facility] Work Phone[facility] Work Phone: [facility] Work Phone: [facility] Work Phone: [facility] Work Phone: [facility]; [facility] Work Phone: [facility] Work Phone: [facility] Work Phone: [facility] Immunizations Immunization Date Immunization Notes Care Provider Fa [facility] 04-13-2024 influenza, seasonal, injectable, preservative free Asa Alba [employer] SAL[employer] ADVISOR-C Work Phone: [facility] 04-15-2023 influenza, injectabl e, quadrivalent, preservative free Asa Parth [employer] SALES ADVISOR-C Work Phone: [facility] 04-20-2022 influenza, injectabl e, quadrivalent, preservative free Asa Parth [employer]S SALES ADVISOR-C Work Phone: [facility] 04-20-2022 influenza, seasonal, injectable [employer]S SALES ADVISOR-C Asa Parth Work Phone: [facility] 04-15-2021 influenza, injectabl e, quadrivalent, preservative free Asa Parth [employer]S SALES ADVISOR-C Work Phone: [facility] 04-15-2021 influenza, seasonal, injectable [facility] 04-15-2021 influenza, seasonal, injectable, preservative free Jacob Farooq MD Work Phone: [facility] 09-03-2020 Covid (Moderna) [facility] 08-06-2020 Covid (Moderna) [facility] 04-16-2020 influenza, injectabl e, quadrivalent, preservative free Asa Parth [employer]S SALES ADVISOR-C Work Phone: [facility] 04-16-2020 influenza, seasonal, injectable [facility] 04-16-2020 influenza, seasonal, injectable, preservative free Jacob Farooq MD Work Phone: [facility] 05-22-2019 influenza, injectabl e, quadrivalent, preservative free Asa Parth PARTS SALES ADVISOR-C Work Phone: [facility] 05-22-2019 influenza, seasonal, injectable [facility] 04-15-2018 influenza, injectabl e, quadrivalent, preservative free Asa Parth [employer]S SALES ADVISOR-C Work Phone: [facility] 04-15-2018 influenza, seasonal, injectable [facility] 04-14-2017 influenza, injectabl e, quadrivalent, preservative free Asa Parth [employer]S SALES ADVISOR-C Work Phone: [facility] 04-14-2017 influenza, seasonal, injectable [facility] 05-04-2016 influenza, injectabl e, quadrivalent, preservative free Asa Parth [employer]S SALES ADVISOR-C Work Phone: [facility] 05-04-2016 influenza, seasonal, injectable [facility] 05-16-2015 influenza, injectabl e, quadrivalent, preservative free Asa Alba [employer]S SALES ADVISOR-C Work Phone: [facility] 05-16-2015 influenza, seasonal, injectable [facility] [facility] 04-12-2014 influenza, injectabl e, quadrivalent, preservative free Asa Alba PARTS SALES ADVISOR-C Work Phone: [facility] 04-12-2014 influenza, seasonal, injectable [facility] Payers Date Payer Category Payer Unknown [id number] 2024 Self-pay [id number] 2022 Private Health Insurance [facility] [id number] 2022-[facility] [phone] [address] [place] [address] PPO [id number] 2019 Unknown 2013 Unknown [id number] 2008 Unknown [id number] 1960 Unknown [id number] 16 Unknown [id number] 62 Unknown [id number] 62 Unknown [id number] 62 Unknown [id number] 62 Unknown [id number] 62 Unknown [id number] 62 Unknown [id number] 62 Unknown [id number] 62 Unknown [id number] 62 Social History Date Type Detail Facility No Caffeine Use Comprehensiv e Internal Medicine Work Phone: Start: 07-25-2021 End: 10-23-2022 Tobacco smoking status RUST Unknown if ever smoked [facility] Start: 1960 Sex Assigned At Female [facility] Start: 1960 Sex Assigned At Not on file [facility] Start: 06-24-2022 End: 04-13-2024 Tobacco smoking status AKIS Never smoked tobacco [facility] Start: 06-24-2022 Tobacco use and exposure Smokeless tobacco non-user [facility] Start: 06-24-2022 End: 07-07-2022 Alcohol intake Current drinker of alcohol (finding) [facility] Start: 06-24-2022 Alcohol Comment occassionally [facility] Start: 06-08-2022 End: 06-18-2022 Exposure to SARS-CoV-2 (event) Not sure [facility] Start: 10-17-2024 Sex Female (finding) [facility] NEGATED: Highlighted rowStart: NINF History of tobacco use Passive smoker [facility] Medical Equipment Procedure Code Equipment Code Equipment Origin al Text Equipment Identifier Dates Arthroscopy, shoulder, with rotator cuff repair FIBERTAPE FDA Start: 08-04-2021 Arthroscopy, shoulder, with rotator cuff repair FIBERTAPE FDA Start: 08-04-2021 Arthroscopy, shoulder, with rotator cuff repair FIBERTAPE [id number] FDA Start: 08-04-2021 Arthroscopy, shoulder, with rotator cuff repair FIBERTAPE AR-[id number] FDA Start: 08-04-2021 Arthroscopy, shoulder, with rotator cuff repair ([id number]) Tendon/ligament bone anchor, bioabsorbable [id number] FDA Start: 08-04-2021 Arthroscopy, shoulder, with rotator cuff repair FIBERTAPE FDA Start: 08-04-2021 Arthroscopy, shoulder, with rotator cuff repair FIBERTAPE FDA Start: 08-04-2021 Arthroscopy, shoulder, with rotator cuff repair FIBERTAPE AR-[id number] FDA Start: 08-04-2021 Arthroscopy, shoulder, with rotator cuff repair FIBERTAPE AR-[id number] FDA Start: 08-04-2021 Arthroscopy, shoulder, with rotator cuff repair FIBERTAPE FDA Start: 08-04-2021 Arthroscopy, shoulder, with rotator cuff repair FIBERTAPE FDA Start: 08-04-2021 Arthroscopy, shoulder, with rotator cuff repair FIBERTAPE AR-[id number] FDA Start: 08-04-2021 Arthroscopy, shoulder, with rotator cuff repair FIBERTAPE AR-[id number] FDA Start: 08-04-2021 Arthroscopy, shoulder, with rotator cuff repair FIBERTAPE FDA Start: 08-04-2021 Arthroscopy, shoulder, with rotator cuff repair FIBERTAPE FDA Start: 08-04-2021 Arthroscopy, shoulder, with rotator cuff repair FIBERTAPE AR-[id number] FDA Start: 08-04-2021 Arthroscopy, shoulder, with rotator cuff repair FIBERTAPE AR-[id number] FDA Start: 08-04-2021 Arthroscopy, shoulder, with rotator cuff repair FIBERTAPE FDA Start: 08-04-2021 Arthroscopy, shoulder, with rotator cuff repair FIBERTAPE FDA Start: 08-04-2021 Arthroscopy, shoulder, with rotator cuff repair FIBERTAPE AR-[id number] FDA Start: 08-04-2021 Arthroscopy, shoulder, with rotator cuff repair FIBERTAPE AR-[id number] FDA Start: 08-04-2021 Arthroscopy, shoulder, with rotator cuff repair FIBERTAPE FDA Start: 08-04-2021 Arthroscopy, shoulder, with rotator cuff repair FIBERTAPE FDA Start: 08-04-2021 Arthroscopy, shoulder, with rotator cuff repair FIBERTAPE AR-[id number] FDA Start: 08-04-2021 Arthroscopy, shoulder, with rotator cuff repair FIBERTAPE AR-[id number] FDA Start: 08-04-2021 Arthroscopy, shoulder, with rotator cuff repair FIBERTAPE FDA Start: 08-04-2021 Arthroscopy, shoulder, with rotator cuff repair FIBERTAPE FDA Start: 08-04-2021 Arthroscopy, shoulder, with rotator cuff repair FIBERTAPE AR-[id number] FDA Start: 08-04-2021 Arthroscopy, shoulder, with rotator cuff repair FIBERTAPE AR-[id number] FDA Start: 08-04-2021 Arthroscopy, shoulder, with rotator cuff repair FIBERTAPE FDA Start: 08-04-2021 Arthroscopy, shoulder, with rotator cuff repair FIBERTAPE FDA Start: 08-04-2021 Arthroscopy, shoulder, with rotator cuff repair FIBERTAPE AR-[id number] FDA Start: 08-04-2021 Arthroscopy, shoulder, with rotator cuff repair FIBERTAPE AR-[id number] FDA Start: 08-04-2021 Arthroscopy, shoulder, with rotator cuff repair FIBERTAPE FDA Start: 08-04-2021 Arthroscopy, shoulder, with rotator cuff repair FIBERTAPE FDA Start: 08-04-2021 Arthroscopy, shoulder, with rotator cuff repair FIBERTAPE AR-[id number] FDA Start: 08-04-2021 Arthroscopy, shoulder, with rotator cuff repair FIBERTAPE AR-[id number] FDA Start: 08-04-2021 Arthroscopy, shoulder, with rotator cuff repair FIBERTAPE FDA Start: 08-04-2021 Arthroscopy, shoulder, with rotator cuff repair FIBERTAPE FDA Start: 08-04-2021 Arthroscopy, shoulder, with rotator cuff repair FIBERTAPE AR-[id number] FDA Start: 08-04-2021 Arthroscopy, shoulder, with rotator cuff repair FIBERTAPE AR-[id number] FDA Start: 08-04-2021 Arthroscopy, shoulder, with rotator cuff repair FIBERTAPE FDA Start: 08-04-2021 Arthroscopy, shoulder, with rotator cuff repair FIBERTAPE FDA Start: 08-04-2021 Arthroscopy, shoulder, with rotator cuff repair FIBERTAPE AR-[id number] FDA Start: 08-04-2021 Arthroscopy, shoulder, with rotator cuff repair FIBERTAPE AR-[id number] FDA Start: 08-04-2021 Arthroscopy, shoulder, with rotator cuff repair FIBERTAPE FDA Start: 08-04-2021 Arthroscopy, shoulder, with rotator cuff repair FIBERTAPE FDA Start: 08-04-2021 Arthroscopy, shoulder, with rotator cuff repair FIBERTAPE AR-[id number] FDA Start: 08-04-2021 Arthroscopy, shoulder, with rotator cuff repair FIBERTAPE AR-[id number] FDA Start: 08-04-2021 Arthroscopy, shoulder, with rotator cuff repair FIBERTAPE FDA Start: 08-04-2021 Arthroscopy, shoulder, with rotator cuff repair FIBERTAPE FDA Start: 08-04-2021 Arthroscopy, shoulder, with rotator cuff repair FIBERTAPE AR-[id number] FDA Start: 08-04-2021 Arthroscopy, shoulder, with rotator cuff repair FIBERTAPE AR-[id number] FDA Start: 08-04-2021 Arthroscopy, shoulder, with rotator cuff repair FIBERTAPE FDA Start: 08-04-2021 Arthroscopy, shoulder, with rotator cuff repair FIBERTAPE FDA Start: 08-04-2021 Arthroscopy, shoulder, with rotator cuff repair FIBERTAPE AR-[id number] FDA Start: 08-04-2021 Arthroscopy, shoulder, with rotator cuff repair FIBERTAPE AR-[id number] FDA Start: 08-04-2021 Arthroscopy, shoulder, with rotator cuff repair FIBERTAPE FDA Start: 08-04-2021 Arthroscopy, shoulder, with rotator cuff repair FIBERTAPE FDA Start: 08-04-2021 Arthroscopy, shoulder, with rotator cuff repair FIBERTAPE AR-[id number] FDA Start: 08-04-2021 Arthroscopy, shoulder, with rotator cuff repair FIBERTAPE AR-[id number] FDA Start: 08-04-2021 Arthroscopy, shoulder, with rotator cuff repair FIBERTAPE FDA Start: 08-04-2021 Arthroscopy, shoulder, with rotator cuff repair FIBERTAPE FDA Start: 08-04-2021 Arthroscopy, shoulder, with rotator cuff repair FIBERTAPE AR-[id number] FDA Start: 08-04-2021 Arthroscopy, shoulder, with rotator cuff repair FIBERTAPE AR-[id number] FDA Start: 08-04-2021 Arthroscopy, shoulder, with rotator cuff repair FIBERTAPE FDA Start: 08-04-2021 Arthroscopy, shoulder, with rotator cuff repair FIBERTAPE FDA Start: 08-04-2021 Arthroscopy, shoulder, with rotator cuff repair FIBERTAPE AR-[id number] FDA Start: 08-04-2021 Arthroscopy, shoulder, with rotator cuff repair FIBERTAPE AR-[id number] FDA Start: 08-04-2021 Arthroscopy, shoulder, with rotator cuff repair FIBERTAPE FDA Start: 08-04-2021 Arthroscopy, shoulder, with rotator cuff repair FIBERTAPE FDA Start: 08-04-2021 Arthroscopy, shoulder, with rotator cuff repair FIBERTAPE AR-[id number] FDA Start: 08-04-2021 Arthroscopy, shoulder, with rotator cuff repair FIBERTAPE AR-[id number] FDA Start: 08-04-2021 Arthroscopy, shoulder, with rotator cuff repair FIBERTAPE FDA Start: 08-04-2021 Arthroscopy, shoulder, with rotator cuff repair FIBERTAPE FDA Start: 08-04-2021 Arthroscopy, shoulder, with rotator cuff repair FIBERTAPE AR-[id number] FDA Start: 08-04-2021 Arthroscopy, shoulder, with rotator cuff repair FIBERTAPE AR-[id number] FDA Start: 08-04-2021 Arthroscopy, shoulder, with rotator cuff repair FIBERTAPE FDA Start: 08-04-2021 Arthroscopy, shoulder, with rotator cuff repair FIBERTAPE FDA Start: 08-04-2021 Arthroscopy, shoulder, with rotator cuff repair FIBERTAPE AR-[id number] FDA Start: 08-04-2021 Arthroscopy, shoulder, with rotator cuff repair FIBERTAPE AR-[id number] FDA Start: 08-04-2021 [place] Thk1.65mm P tfe 4x.5in Cardiovascular Sterile - [id number] Start: 06-26-2022 Valve Sandoval In spiris Resilia 23mm Pericardial Aortic Bioprosthesis - [id number] Start: 06-26-2022 Clinical Notes 05-28-2022 to 10-18-2024 Note Date & Type Note Facility 10-18-2024 Evaluation note Diagnosis Onset Date Resolution Post-menopausal bleeding acute October 18, 2024 8:10am Uterine fibroid acute October 8:10am History of ascending aorta repair June, acute December 21, 2024 1:28pm Essential hypertension chronic December 21, 2024 1:28pm History of aortic valve replacement with bioprosthetic valve June, chronic December 21, 2024 1:28pm [employer] Work Phone: 1(284) 782-397904-02-2025 Evaluation note* Diagnosis Onset Date Resolution Status Admit Date Post-menopausal bleeding acute October 18, 2024 8:10am Uterine fibroid acute October 8:10am [facility] Work Phone: 1(465) 127-172504-02-2025 Evaluation note* Diagnosis Onset Date Resolution Status Admit Date Post-menopausal bleeding acute October 18, 2024 8:10am Uterine fibroid acute October 8:10am History of ascending aorta repair June, acute December 21, 2024 1 :28pm Essential hypertension chronic Ju 2024 1:28pm History of aortic valve replacement with bioprosthetic valve June, chronic December 21, 2024 1 :28pm Post-menopausal bleeding acute December 27, 2024 10:48am Uterine fibroid acute December 10:48am [facility] Work Phone: 1(475) 580-804603-31-2025 Radiology Diagnostic study note [facility] [address] [place] [address] Pelvic w/ Transvaginal MR#: [id number] Acct: [id number] Name: JENARO WILSON JORGITO Rep #: [id number] : 1960 F 64 From: Pet er Peer DO PCP: CORDELIA Paul Status: REG C NARESH Study:Pelvic w/ Transvaginal Date of Exam: 10/12/24 Exam# [id number] Ordering Dr: Judy Hendricks PROCEDURE: PELVIC W/ TRANSVAGINAL 10/12/2024 REASON FOR EXAM: RE-EVAL UTERINE FIBROID. TECHNIQUE: Ultrasound of the pelvis was performed with grayscale and color Doppler imaging.. COMPARISON: None. FINDINGS: Uterus: 10.5 cm mL by 7.4 cm AP x 7.2 cm T. uterus is anteverted. In the myometrium there is a 6.6 cm fibroid. Endometrium is not visible. Ovaries are not visible. US/Pelvic w/ Transvaginal IMPRESSION: Uterus is large. At least 1 large fibroid identified. Others are possible Important structures including both ovaries and endometrium are not visualized. Reading Location: [facility] CC: CORDELIA Hendricks; CORDELIA Alba ~ Imaging Science Professor: Signed [facility]06-16-2023 NoteHNO ID: [id number] Author: Esha Vazquez Service: ? Author Type: ? Type: Progress Notes Filed: 01/01/2023 11:11 AM Note Text: QOL Call Tracking Documentation Follow-Up Type: Phone Call Call Attempt: 1st Attempt Call Status: [facility] Message[facility]23 NoteHNO ID: [id number] Author: Esha Vazquez Service: ? Author Type: ? Type: Progress Notes Filed: 10/07/2022 2:34 PM Note Text: QOL Call Tracking Documentation Follow-Up Type: Phone Call Call Attempt: 1st Attempt Call Status: Left MessageOhio[facility]-2023 History of Present illness Narrative* Esha Vazquez - 10/07/2022 2:34 PM EDT QOL Call Tracking Documentation Follow-Up Type: Phone Call Call Attempt: 1st Attempt Call Status: Left Message documented [facility]12[facility]2022 History of Present illness Narrative* Chayito Cunningham - 07/08/2022 7:54 AM EST Incidental Lung Nodule Enrollment Call attempt: 1st Attempt Call status: Complete Enrolled in Lung Nodule program: No Declined reason: Finding reviewed deemed low risk. No further work up recommended at this time. Letter/brochure notifying patient sent to patient s home mailing address. Lung Nodule Program [place] documented in [facility] encounterCommunity [facility]12[facility]12-20-[facility] History of Present illness Narrative* Trace Ro APRN.CNP - 07/07/2022 11:00 AM EST Images from the original note were not included. [facility] Department of Cardiovascular Medicine DEPARTMENT OF CARDIAC SURGERY OUTPATIENT VISIT DATE July 07, 2022 OUTPATIENT VISIT TYPE POSTOPERATIVE Jenaro Wilson is a 61 year old female who presents who is here for post operative follow up HPI: S/P on 06/26/2022 [facility] Surgeon: Jacob Farooq MD Operations : Upper Hemisternotomy AVR (Inspiris 23), PFO closure Surgical Pathology/Microbiology: A. 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 B. Aorta, partial excision: - Mild accumulation of mucopolysaccharides. Discharged on 06/30/2022 PAST MEDICAL HISTORY Diagnosis Date Aortic stenosis Bicuspid aortic valve No past surgical history on file. ALLERGIES No Known Allergies Current Outpatient Medications Medication Sig aspirin 81 mg chewable tablet Take 1 tablet by mouth once daily. potassium chloride ER (K-DUR, KLOR-CON) 20 mEq tablet Take 1 tablet by mouth once daily for 7 days. acetaminophen (TYLENOL) 500 mg tablet Take 2 tablets by mouth every 6 hours as needed (for surgicalpain). furosemide (LASIX) 40 mg tablet Take 1 tablet by mouth once daily for 7 days. metoprolol succinate ER (TOPROL XL) 50 mg 24 hr tablet Take 0.5 tablets by mouth twice daily. docusate sodium (COLACE) 100 mg capsule Take 1 capsule by mouth twice daily. magnesium oxide (MAG-OX) 400 mg (241.3 mg magnesium) tablet Take 2 tablets by mouth once daily for 7 days. Current Facility-Administered Medications Medication Dose Route Frequency perflutren lipid microspheres 1.3 mL in NaCl (PF) 0.9% 10 mL injection (DEFINITY) INTRAVENOUS DIRECTED PRN sodium chloride 0.9 % (flush) 10 mL (BD POSIFLUSH) 10 mL INTRAVENOUS DIRECTED PRN Chief Complaints: Sore, but otherwise I feel ok Discharge Post Operative Course: Pain scale : yes, chest wall and back. manageable with tylenol Appetite: improving Activity: Walking ad mary around the house Elimination: normal, no constipation , urination is normal Sleep: difficulty staying asleep Mood: normal and good Incisions/Wounds: healing Review of Systems: HEENT: Negative for fevers since discharge, chills, night sweats, and blurry vision Cardiac: Denies significant problems, chest pain, Arrhythmia, and leg edema Respiratory: denies dyspnea, cough, orthopnea Musculoskeletal: No history of joint swelling, joint pain, or loss of range of motion. Neuro: Denies neurological complaints Physical Exam: BP 112/79 Pulse 90 Temp 36.9 C (98.4 F) (Oral) Resp 12 Ht 165.1 cm (5' 5) Wt 78.1 kg (172 lb 3.2 oz) LMP (LMP Unknown) SpO2 98% BMI 28.66 kg/m Appearance: well groomed, white female, in no acute distress Neck: No neck vein distention Cardiac: regular S1, S2, No murmur, No rub Lungs: Clear breath sounds bilaterally without wheeze or dullness Abdomen: soft, non tender, Normal bowel sounds Extremities: No edema Sternum: stable, no click Sternotomy site: healing, clean, dry and intact Wound: NA Procedures: Sutures removed from chest tube sites without difficulty. Very moist CT under left breast. Localized wound care reviewed with patient with understanding. IMPRESSION & PLAN: 1.S/P on 06/26/2022 [facility] Surgeon: Jacob Farooq MD Operations : Upper Hemisternotomy AVR (Inspiris 23), PFO closure Surgical Pathology/Microbiology: A. 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 B. Aorta, partial excision: - Mild accumulation of mucopolysaccharides. No postop ECHO needed per CTS Discharged on 06/30/2022 2. BAV - s/p replacement - no post op echo per CTS staff - continue asa and bb ECG: Diagnosis: NORMAL SINUS RHYTHM NORMAL ECG 3. Atelectasis/FVO - improving - weight: down 9lb since discharge - no further diuretic once complete - encouraged to continue deep breathing exercises and walking CXR: 07/07/2022 RESULT: Lines, tubes, and devices: None. Lungs and pleura: No acute focal lung consolidation is seen. Minimal blunting of the right costophrenic angle may represent pleural thickening or trace right pleural effusion. There is no pneumothorax. Cardiomediastinal silhouette: Stable cardiomediastinal silhouette. Patient is status post median sternotomy and aortic valve replacement. Bones and soft tissues: The vertebral bodies are well aligned and the vertebral body heights are maintained. LABS: Component Latest Ref Rng & Units 06/30/2022 07/07/2022 Alkaline Phosphatase 34 - 123 U/L 57 86 AST 13 - 35 U/L 15 21 ALT 7 - 38 U/L 13 28 Glucose 74 - 99 mg/dL 92 91 BUN 7 - 21 mg/dL 9 17 Creatinine 0.58 - 0.96 mg/dL 0.55 (L) 0.68 Sodium 136 - 144 mmol/L 139 140 Potassium 3.7 - 5.1 mmol/L 4.1 5.2 (H) Component Latest Ref Rng & Units 06/30/2022 07/07/2022 WBC 3.70 - 11.00 k/uL 6.84 8.65 RBC 3.90 - 5.20 m/uL 3.06 (L) 3.66 (L) Hemoglobin 11.5 - 15.5 g/dL 9.4 (L) 11.0 (L) Hematocrit 36.0 - 46.0 % 27.9 (L) 34.1 (L) Platelet Count 150 - 400 k/uL 186 533 (H) Summary: See above. Follow up with PCP next week Follow up with biazzi nitrator operator in 4-6 weeks. Call CTS OPD with any issues, concerns or worsening surgical symptoms. Post op care and discharge orders reviewed with the patient- all questions were answered. Surgical sites healing without complication Discussed new medications, dosage, route of administration and side effects Reviewed walking program at home Reviewed diet guidelines for recovery from surgery Return to the clinic prn with signs or symptoms of infection, fevers, SOB, or pleural effusion SBE prophylaxis reviewed Discussed wound care Trace Ro APRN.CNP documented in this encounterCommunity [facility] Hospital12-20-2022 History of Present illness Narrative* Guadalupe Pinon RT(R) - 07/07/2022 10:15 AM EST Radiology Service Progress Note PATIENT NAME: Jenaro Wilson DATE OF SERVICE: July 07, 2022 TIME: 10:21 AM PATIENT IDENTITY VERIFICATION COMPLETED USING TWO (2) IDENTIFIERS: Name and Date of confirmedby patient verbally. FALL SCREENING: Has the patient had 2 falls in the last year or 1 fall with injury or currently using an Ambulatory Assistive Device (Walker, Cane, Wheelchair, Crutches, etc.)? No PATIENT GENDER DATA: Female. status: : No status: NO. PATIENT RELEVANT IMPLANT DATA REVIEWED: Not Applicable RADIOLOGY DEPARTMENT: General X-ray: Exam(s) Completed: Chest X-Ray PERIPHERAL IV DATA: Not applicable SIGNED BY: RT Melina(Marcin) July 07, 2022 10:21 AM documented in this encounterCommunity [facility] Hospital12-14-2022 Miscellaneous Notes* Telephone Encounter - Emelina Lucia RN - 07/01/2022 12:39 PM EST SURVEY INFORMATION #1 Registered Nurse: Emelina Lucia Date: 07/01/2022 12:38:58 PM Call Outcome: All Clear Call Day: 1 Summary: 1. Have you noticed any increased shortness of breath since you left the hospital? (HVI Red Flag Question) No 2. Have you noticed any increased swelling in your feet, ankles or belly? (Heart Failure Red Flag Question) No 3. Have you gained more than 2 - 3 pounds since discharge? (HVI Red Flag Question) No 4. Have you noticed any changes to your incision or wound since you were discharged as we want to be aware of any signs of infection? (HVI Red Flag Question) No 5. Are you having any increased pain since discharge? If Yes: What type of pain and where? (HVI RedFlag Question) No 6. Have you had any unplanned trips to the Emergency Department or Hospital since you were discharged? If yes: Why? (Heart Failure Red Flag Question) No 7. Do you have any questions about how to take your medications? (Standard Question) No 8. Have you filled your prescriptions [if no-why? If related to cost - Do you need to be connected to someone who can help you with the cost?] Reminder: Please bring in your medications at your follow up appointment. (HVI Red Flag Question) Yes 9. Do you have a doctor s appointment scheduled or is someone working on getting you a follow-up appointment? (Standard Question) Yes Overall Comments: all clear no medical concerns at this time closing statement given Emelina Lucia RN pts Name & verified documented in this encounterCommunity Memorial Hospital12-14-2022 NoteOhio[facility]12-14-2022 History of Present illness Narrative* Jacque Alba PA-C - 07/01/2022 10:28 AM EST Incidental Lung Nodule Enrollment Call attempt: 1st Attempt Call status: Complete Enrolled in Lung Nodule program: Referred Lung Nodule outreach: No outreach - Very small nodule, letter and brochure sent Lung Nodule Program Location: [place] * Chayito Cunningham - 07/01/2022 7:07 AM EST Patient no longer IP, needs outreach documented in this encounterCommunity [facility] Hospital12-14-2022 NoteHNO ID: [id number] Author: Chayito Cunningham Service: ? Author Type: ? Type: Progress Notes Filed: 07/01/2022 7:07 AM Note Text: Patient no longer IP, needs outreachOhio[facility]12-13-2022 Note [facility]12-[facility] NoteOhio[facility]12-13-2022 History of Present illness Narrative* Vianey Calvert APRN.CNP - 06/30/2022 11:41 AM EST Incidental Lung Nodule Enrollment Enrolled in Lung Nodule program: Referred Lung Nodule outreach: No outreach - Inpatient Lung Nodule Program Location: [place] Vianey Calvert APRN.CNP documented in this encounterCommunity Memorial Hospital12-12-2022 NoteOhio[facility]12-12-2022 NoteOhio[facility]12-11-2022 NoteOhio[facility]12-10-2022 History of Past illness Narrative* Problem Noted Date Resolved Date Sinus bradycardia 06/27/2022 06/29/2022 Overview: History: Postop Assessment: HR dropped to 50s overnight. Currently NSR with HR 70s. Plan: Continue current plan. Atelectasis 06/26/2022 06/29/2022 Overview: History: Postop Assessment: Bibasilar on CXR. Oxygenation stable on 1L NC Plan: Continue OOB, PEP, and optimize pain control. Wean O2 Hypotension 06/26/2022 06/28/2022 Overview: History: Postop Assessment: Requiring Levophed infusion Plan: Titrate to MAP goal 65-75 Stress hyperglycemia 06/26/2022 06/29/2022 Overview: History: No Hx of DM Assessment: Perioperative insulin resistance and exacerbation of hyperglycemia. Plan: Transition to SSI for glycemic control documented as of this encounter (statuses as of 06/30/2022) [facility] History of Past illness Narrative* Problem Noted Date Resolved Date Sinus bradycardia 06/27/2022 06/29/2022 Overview: History: Postop Assessment: HR dropped to 50s overnight. Currently NSR with HR 70s. Plan: Continue current plan. Atelectasis 06/26/2022 06/29/2022 Overview: History: Postop Assessment: Bibasilar on CXR. Oxygenation stable on 1L NC Plan: Continue OOB, PEP, and optimize pain control. Wean O2 Hypotension 06/26/2022 06/28/2022 Overview: History: Postop Assessment: Requiring Levophed infusion Plan: Titrate to MAP goal 65-75 Stress hyperglycemia 06/26/2022 06/29/2022 Overview: History: No Hx of DM Assessment: Perioperative insulin resistance and exacerbation of hyperglycemia. Plan: Transition to SSI for glycemic control documented as of this encounter (statuses as of 07/01/2022) [facility] History of Past illness Narrative* Problem Noted Date Resolved Date Sinus bradycardia 06/27/2022 06/29/2022 Overview: History: Postop Assessment: HR dropped to 50s overnight. Currently NSR with HR 70s. Plan: Continue current plan. Atelectasis 06/26/2022 06/29/2022 Overview: History: Postop Assessment: Bibasilar on CXR. Oxygenation stable on 1L NC Plan: Continue OOB, PEP, and optimize pain control. Wean O2 Hypotension 06/26/2022 06/28/2022 Overview: History: Postop Assessment: Requiring Levophed infusion Plan: Titrate to MAP goal 65-75 Stress hyperglycemia 06/26/2022 06/29/2022 Overview: History: No Hx of DM Assessment: Perioperative insulin resistance and exacerbation of hyperglycemia. Plan: Transition to SSI for glycemic control documented as of this encounter (statuses as of 07/01/2022) [facility] History of Past illness Narrative* Problem Noted Date Resolved Date Sinus bradycardia 06/27/2022 06/29/2022 Overview: History: Postop Assessment: HR dropped to 50s overnight. Currently NSR with HR 70s. Plan: Continue current plan. Atelectasis 06/26/2022 06/29/2022 Overview: History: Postop Assessment: Bibasilar on CXR. Oxygenation stable on 1L NC Plan: Continue OOB, PEP, and optimize pain control. Wean O2 Hypotension 06/26/2022 06/28/2022 Overview: History: Postop Assessment: Requiring Levophed infusion Plan: Titrate to MAP goal 65-75 Stress hyperglycemia 06/26/2022 06/29/2022 Overview: History: No Hx of DM Assessment: Perioperative insulin resistance and exacerbation of hyperglycemia. Plan: Transition to SSI for glycemic control documented as of this encounter (statuses as of 07/08/2022) [facility] History of Past illness Narrative* Problem Noted Date Resolved Date Sinus bradycardia 06/27/2022 06/29/2022 Overview: History: Postop Assessment: HR dropped to 50s overnight. Currently NSR with HR 70s. Plan: Continue current plan. Atelectasis 06/26/2022 06/29/2022 Overview: History: Postop Assessment: Bibasilar on CXR. Oxygenation stable on 1L NC Plan: Continue OOB, PEP, and optimize pain control. Wean O2 Hypotension 06/26/2022 06/28/2022 Overview: History: Postop Assessment: Requiring Levophed infusion Plan: Titrate to MAP goal 65-75 Stress hyperglycemia 06/26/2022 06/29/2022 Overview: History: No Hx of DM Assessment: Perioperative insulin resistance and exacerbation of hyperglycemia. Plan: Transition to SSI for glycemic control documented as of this encounter (statuses as of 07/08/2022) [facility] History of Past illness Narrative* Problem Noted Date Resolved Date Sinus bradycardia 06/27/2022 06/29/2022 Overview: History: Postop Assessment: HR dropped to 50s overnight. Currently NSR with HR 70s. Plan: Continue current plan. Atelectasis 06/26/2022 06/29/2022 Overview: History: Postop Assessment: Bibasilar on CXR. Oxygenation stable on 1L NC Plan: Continue OOB, PEP, and optimize pain control. Wean O2 Hypotension 06/26/2022 06/28/2022 Overview: History: Postop Assessment: Requiring Levophed infusion Plan: Titrate to MAP goal 65-75 Stress hyperglycemia 06/26/2022 06/29/2022 Overview: History: No Hx of DM Assessment: Perioperative insulin resistance and exacerbation of hyperglycemia. Plan: Transition to SSI for glycemic control documented as of this encounter (statuses as of 10/07/2022) [facility] History of Present illness Narrative* Maria Ines Tipton RN - 06/25/2022 5:05 PM EST AMBULATORY PATIENT EDUCATION READINESS TO LEARN Cognitive Ability: Alert and oriented Motivation To Learn: Interested Family Support: High - Very involved in pt care Instruction Provided To: Patient & Family Patient Learns Best By: Multiple Methods Factors Affecting Learning: None Physical Limitations Affecting Learning: None LEARNING RESPONSE Diagnosis: Education Topic: Pre-Op Open Heart Surgery Instructions Teaching Points: Logistics / Protocols /Complication Prevention How prepared do you feel you are for this visit: 6 Instruction/Supplemental Materials: Cardiac Surgery Information Binder Individual Instruction Patient/Family Response: Well prepared Follow up plan: Patient/Family to call [facility] with any further questions Referral (Recommendation): None Teach completed, topic: Patient provided with Cardiac Surgery binder and reviewed. Patient educatedon pre-operative instructions and advised to call [facility] with any further questions. documented in [facility] Miscellaneous Notes * Addendum Note - Vinayka Douglas MD - 06/25/2022 2:13 PM ESTAddended by: VINAYAK DOUGLAS on: 06/25/2022 02:13 PM Modules accepted: Orders documented in this encounterCommunity [facility] History of Present illness Narrative* Maria Ines Tipton RN - 06/25/2022 1:34 PM EST CHART COPY-DO NOT DISCARD CARDIOVASCULAR SURGERY PRE-OPERATIVE ASSESSMENT NAME: Jenaro Wilson Alert Notes: DATE: 06/25/2022 SEX: female : 1960 AGE: [age] year old Estimated body mass index is 29.12 kg/m as calculated from the following: Height as of 06/24/22: 165.1 cm (5' 5). Weight as of 06/24/22: 79.4 kg (175 lb). STS Score Surgeon: Jacob Farooq MD Intended procedure: AVr/R Patient scheduled for surgery on: 06/26/2022 [facility] MD: Ranjit Cook REDO: No CHIEF COMPLAINT: Pre-Op Open Heart Surgery MEDICATIONS: Current Outpatient Medications Medication Sig amLODIPine (NORVASC) 5 mg tablet Take 5 mg by mouth once daily. hydroCHLOROthiazide (HYDRODIURIL, ESIDRIX) 12.5 mg tablet Take 12.5 mg by mouth once daily. potassium chloride ER (K-DUR, KLOR-CON) 20 mEq tablet Take 20 mEq by mouth once daily. mupirocin (BACTROBAN) 2 % ointment Apply a small amount in each nostril using a cotton swab twice the day before surgery and once the morning of surgery. aspirin 81 mg chewable tablet Take 81 mg by mouth once daily. Current Facility-Administered Medications Medication Dose Route Frequency perflutren lipid microspheres 1.3 mL in NaCl (PF) 0.9% 10 mL injection (DEFINITY) INTRAVENOUS DIRECTED PRN sodium chloride 0.9 % (flush) 10 mL (BD POSIFLUSH) 10 mL INTRAVENOUS DIRECTED PRN ALLERGIES: ALLERGIES No Known Allergies LATEX ALLERGY: No FOOD SENSITIVITIES: No ANTICOAGULANTS: ASA 81 last dose 06/21 STEROIDS: No HISTORIES: History reviewed. No pertinent family history. PAST MEDICAL HISTORY Diagnosis Date Aortic stenosis Bicuspid aortic valve History reviewed. No pertinent surgical history. Social History Tobacco Use Smoking status: Never Passive exposure: Never Smokeless tobacco: Never Substance Use Topics Alcohol use: Yes Comment: occassionally Drug use: Never REVIEW OF SYSTEMS: GEN: Fatigue over the last year and getting progressively worse. Can still complete all ADLs but isalmost always too tired for recreational activities HEENT: Glasses, Hard of Hearing tinnitus DERM: Denies Dermatological Complaints SUBJECT SCIENTIFIC RESEARCH: Headache/Migraine prior history but has mostly resolved over the last 10 years since initiating antihypertensive medication, Dizziness comes and goes can happen with positional changes but also happens when just sitting down and relaxing RESP: Dyspnea with moderate to heavy exertion CARD: Angina patient reports aching feeling when she overdoes work that resolves after a couple minutes of sitting down, non-radiating but accompanied by occasional nausea, HTN , Valvular Heart Disease BAV/, reports feeling occasional fluttering of heart GI: Denies Gastrointestinal Complaints : Denies complaints ENDO: hyperparathyroid HEME: developed a blood clot during post-fertility treatments MUSC/SKEL: thoracic spinal pain, s/p rotator cuff repair 07/2021 PVD: Denies PVD Varicose Veins: No BRUITS (Carotid): No PULSES: Pedal Left 2 Right 2 NYHA CLASSIFICATION: Class 1 FAMILY HISTORY OF CAD: Yes mother ? PERFUSION INDEX: DOMINANT HAND: right-handed Pacer Check: NA CARDIAC EVALUATION: Cardiac Cath: Date - 05/19/2022 Ultrasound: Date - PFT: Date - 06/24/2022 ECHO: Last ECHO Result Conclusion ECHO Collected: 06/24/2022 12:26 PM (Final result) Impression: CONCLUSIONS: - Exam indication: Routine surveillance of moderate or severe valvular stenosis (>1yr) - The left ventricle is normal in size. Left ventricular systolic function is normal. EF = 72 5% (2D biplane) Left ventricular diastolic function was not evaluated due to E/a fusion. - The right ventricle is normal in size. Right ventricular systolic function is normal. - The visualized aorta is borderline dilated with a maximal dimension of 4.0 cm. - There is paradoxical low flow, low gradient, severe aortic valve stenosis caused by calcified valve and restricted opening. AV area is 0.72 cm (0.38 cm /m ) by continuity, VTI. The peak gradient is 59 mmHg, the mean gradient is 38 mmHg and the dimensionless valve index is 0.19. Difficult to assess AV morphology. History of bicuspid AV. - Estimated right ventricular systolic pressure is not reported due to an insufficient tricuspid regurgitation signal. Estimated right atrial pressure is not included as the IVC was not seen. - Small pericardial effusion adjacent to the RV. Difficult to assess MV/TV inflows due to E/a fusion. IVC not visualized. No signs of RV diastolic collapse. - The patient has not had a prior CC echocardiographic exam for comparison. * * * Final * * * CT Scan: Last CT Result Conclusion CTA CHEST (GATED) W IVCON Exam End: 06/24/2022 9:21 AM (Final result) Impression: IMPRESSION: AORTIC VALVE: Appears BICUSPID with likely fusion of the left and right coronary cusp; -severe leaflet calcification AORTIC ROOT: ECTASIA; Diameter: 3.8 x3.5 cm ASCENDING THORACIC AORTA: ECTASIA; Diameter: 4 x 4 cm LEFT VENTRICLE: normal size -suspected mild eccentric hypertrophy of the basal interventricular septum Right ventricle: normal size - linear structure at the interatrial septum, most consistent with the foramen ovale or a left atrial septal pouch. PERICARDIUM: overall minimal pericardial effusion, measuring up to 7 mm over the RV LUNGS: small 4 mm noncalcified suze-fissural nodule in the right upper lobe and which likely represents a lymph node. (Image # [id number]); 4 mm noncalcified nodule in the left lower lobe Incidental Finding: Follow-up Acuity: Incidental Finding: Solid: <6 mm (solitary or multiple) Routing Code: N/A Recommendation: No imaging follow-up is recommended Time Frame: N/A Comments: If there are risk factors for lung malignancy, a follow-up chest CT exam could be obtained in 12 months COMMUNICATION:? Results will be communicated with the ordering provider via AQS staff message by Imaging Support Services within 2 business days of report finalization. Imaging Science Professor: JORY Transcribe Date/Time: Jun 24 2022 9:37A Dictated by : CAMDEN GARNER MD This examination was interpreted and the report reviewed and electronically signed by: DEVONTE GALLARDO MD on Jun 24 2022 11:10AM EST MRI: CXR: No results found. EKG: Last EKG Result Conclusion ECG COMPLETE Collected: 06/24/2022 10:12 AM (Final result) Impression: NORMAL SINUS RHYTHM NORMAL ECG Confirmed by OPAL EDWARD MD ([id number]) on 06/25/2022 11:50:49 AM Dental: Cleared ? Recent Labs 06/24/22 1049 06/24/22 0851 WBC 8.80 -- HB 14.2 -- HCT 43.7 -- PLT 360 -- INR 1.0 -- APTT 26.0 -- PTSEC 10.0 -- NA 143 -- K 4.7 -- BUN 17 -- CREAT 0.71 0.60* Pre Op Instructions per protocol reviewed and handout given to patient . Patient Education completed and documented. Instructed to start Bactroban per protocol. Emotional support provided to patient and family. All questions and concerns adressed. Signature: Maria Ines Tipton RN See Cardiology History and Physical dated 06/24/2022 documented in this encounterCommunity [facility]12[facility] History of Present illness Narrative* aJcob Farooq MD - 06/25/2022 12:32 PM EST Consult to determine surgery. This patient is seen in consult for cardiovascular disease. I have reviewed the medical history rufuss. Impression:severe as, bicuspid Based on my evaluation if this patient undergoes surgery the risk of is 1% Plan: Evaluation for potential surgery. I spent more than 50% of the visit face to face counseling the patient on the plan and treatment options. The total time of the face to face visit was approximately 20 minutes. The risks, benefits and anticipated outcomes of a potential procedure versus medical management were reviewed. Discussed the potential for two patients undergoing surgery in two separate rooms (concurrent surgery) but I would be putting the patient on the heart lung machine and taking them off. Discussed that in an emergency a qualified backup surgeon is available and in the rare event of a serious situation, one of my colleagues would also be able to take over. 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 Farooq Instructed to hold HCTZ Review no known heparin intolerance not taking anticoagulant/antiplatelet medication no non-cardiac IEDs present no known esophageal disorders blood transfusion consented - COVID-19 Immunization Status Overdue - COVID-19 VACCINE (3 - Booster for Moderna series) Overdue since 10/29/2020 09/03/2020 Imm Admin: COVID-19 original vaccine, full dose, monovalent (MODERNA) 08/06/2020 Imm Admin: COVID-19 original vaccine, full dose, monovalent (MODERNA) The patient has the following: ACTIVE PROBLEM LIST Discharge Planning Issues Pre-Op Testing PAST MEDICAL HISTORY Diagnosis Date Aortic stenosis Bicuspid aortic valve No past surgical history on file. No family history on file. Social History Tobacco Use Smoking status: Never Passive exposure: Never Smokeless tobacco: Never Substance Use Topics Alcohol use: Yes Comment: occassionally Drug use: Never Prior to Admission medications as of 06/24/22 1429 Medication Sig Last Dose Taking mupirocin (BACTROBAN) 2 % ointment Apply a small amount in each nostril using a cotton swab twice the day before surgery and once the morning of surgery. amLODIPine (NORVASC) 5 mg tablet Take 5 mg by mouth once daily. hydroCHLOROthiazide (HYDRODIURIL, ESIDRIX) 12.5 mg tablet Take 12.5 mg by mouth once daily. potassium chloride ER (K-DUR, KLOR-CON) 20 mEq tablet Take 20 mEq by mouth once daily. No medication comments found. ALLERGIES No Known Allergies Objective Pain Assessment: Vitals: There were no vitals taken for this visit. Diagnostic tests reviewed for today's visit: Lab Value Units Date High Low HB 14.2 g/dL 06/24/2022 15.5 11.5 HCT 43.7 % 06/24/2022 46.0 36.0 WBC 8.80 k/uL 06/24/2022 11.00 3.70 PLT 360 k/uL 06/24/2022 400 150 NA 143 mmol/L 06/24/2022 144 136 K 4.7 mmol/L 06/24/2022 5.1 3.7 GLUC 95 mg/dL 06/24/2022 99 74 BUN 17 mg/dL 06/24/2022 21 7 CREAT 0.71 mg/dL 06/24/2022 0.96 0.58 CREAT 0.60 mg/dL 06/24/2022 1.4 0.7 PTSEC 10.0 sec 06/24/2022 13.0 9.7 INR 1.0 no uni* 06/24/2022 1.3 0.9 APTT 26.0 sec 06/24/2022 32.4 23.0 ALT 24 U/L 06/24/2022 38 7 AST 26 U/L 06/24/2022 35 13 TBILI 1.1 mg/dL 06/24/2022 1.3 0.2 TSH 1.350 mIU/L 06/24/2022 4.200 0.270 Lab Value Units Date High Low HCGQT No results within date range. UHCG No results within date range. HCG, BODY* No results within date range. Lab Value Units Date High Low ABORHD No results within date range. ABSCREEN No results within date range. No results found for: HBA1C Recent Results (from the past 8760 hour(s)) ECHO Collection Time: 06/24/22 12:26 PM Impression CONCLUSIONS: - Exam indication: Routine surveillance of moderate or severe valvular stenosis (>1yr) - The left ventricle is normal in size. Left ventricular systolic function is normal. EF = 72 5% (2D biplane) Left ventricular diastolic function was not evaluated due to E/a fusion. - The right ventricle is normal in size. Right ventricular systolic function is normal. - The visualized aorta is borderline dilated with a maximal dimension of 4.0 cm. - There is paradoxical low flow, low gradient, severe aortic valve stenosis caused by calcified valve and restricted opening. AV area is 0.72 cm (0.38 cm /m ) by continuity, VTI. The peak gradient is 59 mmHg, the mean gradient is 38 mmHg and the dimensionless valve index is 0.19. Difficult to assess AV morphology. History of bicuspid AV. - Estimated right ventricular systolic pressure is not reported due to an insufficient tricuspid regurgitation signal. Estimated right atrial pressure is not included as the IVC was not seen. - Small pericardial effusion adjacent to the RV. Difficult to assess MV/TV inflows due to E/a fusion. IVC not visualized. No signs of RV diastolic collapse. - The patient has not had a prior CC echocardiographic exam for comparison. * * * Final * * * ECG COMPLETE Collection Time: 06/24/22 10:12 AM Impression NORMAL SINUS RHYTHM NORMAL ECG Confirmed by OPAL EDWARD MD ([id number]) on 06/25/2022 11:50:49 AM CTA CHEST (GATED) W IVCON Collection Time: 06/24/22 9:21 AM Impression IMPRESSION: AORTIC VALVE: Appears BICUSPID with likely fusion of the left and right coronary cusp; -severe leaflet calcification AORTIC ROOT: ECTASIA; Diameter: 3.8 x3.5 cm ASCENDING THORACIC AORTA: ECTASIA; Diameter: 4 x 4 cm LEFT VENTRICLE: normal size -suspected mild eccentric hypertrophy of the basal interventricular septum Right ventricle: normal size - linear structure at the interatrial septum, most consistent with the foramen ovale or a left atrial septal pouch. PERICARDIUM: overall minimal pericardial effusion, measuring up to 7 mm over the RV LUNGS: small 4 mm noncalcified suze-fissural nodule in the right upper lobe and which likely represents a lymph node. (Image # [id number]); 4 mm noncalcified nodule in the left lower lobe Incidental Finding: Follow-up Acuity: Incidental Finding: Solid: <6 mm (solitary or multiple) Routing Code: N/A Recommendation: No imaging follow-up is recommended Time Frame: N/A Comments: If there are risk factors for lung malignancy, a follow-up chest CT exam could be obtained in 12 months COMMUNICATION:? Results will be communicated with the ordering provider via AQS staff message by Imaging Support Services within 2 business days of report finalization. Imaging Science Professor: PSCYolanda Transcribe Date/Time: Jun 24 2022 9:37A Dictated by : CAMDEN GARNER MD This examination was interpreted and the report reviewed and electronically signed by: DEVONTE GALLARDO MD on Jun 24 2022 11:10AM EST Assessment No problem-specific Assessment & Plan notes found for this encounter. ANESTHESIA FINDINGS: Intubation History: No history of difficult intubation Significant Anesthesia Considerations: Airway History: No history of difficult airway Prepared for Surgery: The Following Tests/Procedures Have Been Initiated: Orders Placed This Encounter mupirocin (BACTROBAN) 2 % ointment Sig: Apply a small amount in each nostril using a cotton swab twice the day before surgery and oncethe morning of surgery. Dispense: 22 g Refill: 0 Order Comments: Supply patient with Q-tips and instruction sheet ASA Class: 4 Planned Anesthetic: general I - PHYSICAL EVALUATION AIRWAY Patient intubated: No. Tracheostomy tube not present Mallampati: II. TM distance: >3 FB. Neck ROM: full ROM without neurological symptoms. Mouth opening: adequate. Short neck: no. Thick neck: no Chapman present: no DENTAL Dental findings: teeth intact. II - ANESTHESIA PLAN ASA Score: 4 Anesthetic Plan: general Airway type: ETT Beta Hemant Monitoring Plan Post Procedure Analgesic Plan Patient / Surrogate agrees to blood products: Yes Instructions Given to Patient: Instructions located in the after visit summary. Patient given verbal and written preop instructions and voices comprehension and compliance. Signature: Vinayak Douglas MD Patient Name: Jenaro Wilson Date: June 25, 2022 Time: 12:01 PM Pager/Contact #: documented in this encounterCommunity [facility]12[facility] History of Present illness Narrative* Ranjit Roque MD - 06/24/2022 1:30 PM EST Images from the original note were not included. [facility] Department of Cardiovascular Medicine SECTION OF CARDIOVASCULAR IMAGING OUTPATIENT VISIT DATE June 24, 2022 OUTPATIENT VISIT TYPE CONSULTATION PRIMARY CARE PHYSICIAN: Asa Alba NP-C [address] [address] REFERRING PHYSICIAN Jacob Farooq [phone] [facility] [address] CHIEF COMPLAINT: Aortic stenosis HISTORY OF PRESENT ILLNESS: Cardiac consultation at the request of Dr. Jacob Farooq. A copy of this consultation note will be provided to the requesting physician by way of shared Medical record or letter to requesting physician via US mail. Mrs. Wilson is a 61 year old female with past medical history significant for bicuspid aortic valvewith severe aortic stenosis and aortopathy, HTN, hyperparathyroidism, who is seen today for cardiacevaluation prior to OHS with Dr. Farooq. She reports being told of a murmur at age a few years ago and diagnosed with bicuspid aortic valve about 5 months ago after evaluation for dizziness and lightheadedness. Her main symptoms include fatigue and lightheadedness at random over the last year, and substernal chest pain with exertion most recently over the last 5 months. She also reports occasional palpitations. Denies syncope, LE edema,SOB, orthopnea, PND. An OSH echo was obtained 12/2021 notable for BAV with mod-severe (mean gradient 28mmHg; MAURO 0.7)with trivial TR/MR and normal LVEF. She underwent OSH LHC without obstructive CAD. Of note, her sister had cardiac surgery with valve replacement and aneurysm repair in her 40s (unknown valve, anatomy). PAST CARDIAC HISTORY: See HPI. PAST MEDICAL HISTORY Diagnosis Date Aortic stenosis Bicuspid aortic valve No past surgical history on file. SOCIAL HISTORY Social History Tobacco Use Smoking status: Never Passive exposure: Never Smokeless tobacco: Never Substance Use Topics Alcohol use: Yes Comment: occassionally Drug use: Never No family history on file. ALLERGIES: ALLERGIES No Known Allergies MEDICATIONS: amLODIPine (NORVASC) 5 mg tablet Take 5 mg by mouth once daily. hydroCHLOROthiazide (HYDRODIURIL, ESIDRIX) 12.5 mg tablet Take 12.5 mg by mouth once daily. potassium chloride ER (K-DUR, KLOR-CON) 20 mEq tablet Take 20 mEq by mouth once daily. REVIEW OF SYSTEMS: Positive in bold. GENERAL: Negative for: Weight loss or gain, Fever or Chills, Weakness and Sleep difficulties. HEENT: Negative for: Headache, Impaired Vision, Glasses, Hearing Impairment, Ringing in Ears, Nosebleeds, Poor dental care, Bleeding Gums, Dentures NECK: Negative for: Swelling, Pain, Stiffness RESPIRATORY: Negative for: Cough, Blood in Sputum, Shortness of breath, Wheezing, Apnea GASTROINTESTINAL: Negative for: Trouble swallowing, Heartburn, Change in bowel habits, Blood in stool, Dark black stools MUSCULOSKELETAL: Negative for: Muscle or joint pain, Stiffness , Joint swelling NEUROLOGIC/PSYCHIATRIC: Negative for: Weakness, Paralysis, Numbness, Tingling, Tremor, Nervousness,Depressed mood, Memory loss SKIN: Negative for: Rashes, Itching HEMATOLOGICAL/LYMPHATIC: Negative for: Easy bruising , Easy bleeding ENDOCRINE: Negative for: Heat or cold intolerance, Excessive sweating, Frequent urination, Frequentthirst PHYSICAL EXAMINATION: BP 108/70 (BP Site: Right Arm, BP Position: Sitting, BP Cuff Size: Regular Adult) Pulse 100 Resp 12 Ht 165.1 cm (5' 5) Wt 79.4 kg (175 lb) LMP (LMP Unknown) SpO2 94% BMI 29.12 kg/m General: Well appearing, in no acute distress. Skin: No clubbing, no cyanosis. Eyes: Extra ocular movements intact Oropharynx: Teeth in good repair. Neck: No jugular venous distention, no carotid bruits, carotids have a normal upstroke. Lungs: Clear to auscultation bilaterally, no wheezing or rhonchi. Heart: Regular rhythm, PMI not displaced, S1, S2 normal, no S3, no S4, no heaves, no rub and no murmur. Abdomen: Soft, nontender, bowel sounds normal, no palpable organomegaly, no bruits. Extremities: No peripheral edema . Grade 2/4 distal pulses bilaterally. Neuro: Oriented to person, place and time, alert, cooperative, gait coordinated. No data found for this vital: BP CARDIOVASCULAR MEDICINE TESTING: Last ECHO Result Conclusion ECHO Collected: 06/24/2022 12:26 PM (Final result) Impression: CONCLUSIONS: - Exam indication: Routine surveillance of moderate or severe valvular stenosis (>1yr) - The left ventricle is normal in size. Left ventricular systolic function is normal. EF = 72 5% (2D biplane) Left ventricular diastolic function was not evaluated due to E/a fusion. - The right ventricle is normal in size. Right ventricular systolic function is normal. - The visualized aorta is borderline dilated with a maximal dimension of 4.0 cm. - There is paradoxical low flow, low gradient, severe aortic valve stenosis caused by calcified valve and restricted opening. AV area is 0.72 cm (0.38 cm /m ) by continuity, VTI. The peak gradient is 59 mmHg, the mean gradient is 38 mmHg and the dimensionless valve index is 0.19. Difficult to assess AV morphology. History of bicuspid AV. - Estimated right ventricular systolic pressure is not reported due to an insufficient tricuspid regurgitation signal. Estimated right atrial pressure is not included as the IVC was not seen. - Small pericardial effusion adjacent to the RV. Difficult to assess MV/TV inflows due to E/a fusion. IVC not visualized. No signs of RV diastolic collapse. - The patient has not had a prior CC echocardiographic exam for comparison. * * * Final * * * OSH LHC/RHC 05/19/2022 OSH 14 day director style 04/[address] Result Conclusion CTA CHEST (GATED) W IVCON Exam End: 06/24/2022 9:21 AM (Final result) Impression: IMPRESSION: AORTIC VALVE: Appears BICUSPID with likely fusion of the left and right coronary cusp; -severe leaflet calcification AORTIC ROOT: ECTASIA; Diameter: 3.8 x3.5 cm ASCENDING THORACIC AORTA: ECTASIA; Diameter: 4 x 4 cm LEFT VENTRICLE: normal size -suspected mild eccentric hypertrophy of the basal interventricular septum Right ventricle: normal size - linear structure at the interatrial septum, most consistent with the foramen ovale or a left atrial septal pouch. PERICARDIUM: overall minimal pericardial effusion, measuring up to 7 mm over the RV LUNGS: small 4 mm noncalcified suze-fissural nodule in the right upper lobe and which likely represents a lymph node. (Image # [id number]); 4 mm noncalcified nodule in the left lower lobe Incidental Finding: Follow-up Acuity: Incidental Finding: Solid: <6 mm (solitary or multiple) Routing Code: N/A Recommendation: No imaging follow-up is recommended Time Frame: N/A Comments: If there are risk factors for lung malignancy, a follow-up chest CT exam could be obtained in 12 months COMMUNICATION:? Results will be communicated with the ordering provider via AQS staff message by Imaging Support Services within 2 business days of report finalization. Imaging Science Professor: PSCB Transcribe Date/Time: Jun 24 2022 9:37A Dictated by : CAMDEN GARNER MD This examination was interpreted and the report reviewed and electronically signed by: DEVONTE GALLARDO MD on Jun 24 2022 11:10AM EST ECG 06/24/2022 TTE 06/24/2022 CONCLUSIONS: - Exam indication: Routine surveillance of moderate or severe valvular stenosis (>1yr) - The left ventricle is normal in size. Left ventricular systolic function is normal. EF = 72 5% (2D biplane) Left ventricular diastolic function was not evaluated due to E/a fusion. - The right ventricle is normal in size. Right ventricular systolic function is normal. - The visualized aorta is borderline dilated with a maximal dimension of 4.0 cm. - There is paradoxical low flow, low gradient, severe aortic valve stenosis caused by calcified valve and restricted opening. AV area is 0.72 cm (0.38 cm /m ) by continuity, VTI. The peak gradient is 59 mmHg, the mean gradient is 38 mmHg and the dimensionless valve index is 0.19. Difficult to assess AV morphology. History of bicuspid AV. - Estimated right ventricular systolic pressure is not reported due to an insufficient tricuspid regurgitation signal. Estimated right atrial pressure is not included as the IVC was not seen. - Small pericardial effusion adjacent to the RV. Difficult to assess MV/TV inflows due to E/a fusion. IVC not visualized. No signs of RV diastolic collapse. - The patient has not had a prior CC echocardiographic exam for comparison. I have personally reviewed the Electrocardiogram and Echocardiogram. IMPRESSION: Ms. Wilson is a 61 year old female with past medical history significant for bicuspid aortic valve with severe aortic stenosis and aortopathy, HTN, hyperparathyroidism, who is seen today for cardiac evaluation. 1. Bicuspid aortic valve - screen children with echo 2. Severe aortic stenosis - symptomatic, severe, heavily calcified 3. Aortic dilatation -mild - max diameter 4 cm - repair not needed based on size PLAN AND RECOMMENDATIONS: Proceed with surgical AVR Bhanu Simpson MD Cardiovascular Medicine Fellow [facility] STAFF PHYSICIAN NOTE OF PERSONAL INVOLVEMENT IN CARE IMPRESSION: Patient is a 61 year old female with severe and mild ascending aorta enlargement dueto BAV PLAN: Surgical AVR indicated I have reviewed the documentation obtained and documented by the Fellow. I have personally performed a face to face assessment of the patient and have personally participated on the ibrahim components ofthe history, exam and medical decision making. I have discussed the case and management of the patient's care. STAFF PHYSICIAN: Ranjit Roque MD DATE OF SERVICE: June 24, 2022 TIME OF SERVICE: 6:47 PM CONTACT INFORMATION: Ranjit Roque M.D., [facility] Section Head, Cardiovascular Imaging [place] Department of Cardiovascular Medicine Heart and Vascular [facility] Desk [id number] [place] [address] Office - [phone] extension [phone] Office Appointments: [phone] -[phone] extension [phone] [facility]22 NoteHNO ID: [id number] Author: Dayana Perrin RRT Service: ? Author Type: Registered Resp Therapist Type: Progress Notes Filed: 06/24/2022 11:20 AM Note Text: PULM FUNCTION SMARTBLOCK: Provider: Jacob Farooq MD Spirometry: 1 DLCO[facility] History of Present illness Narrative * Dayana Perrin RRT - 06/24/2022 11:19 AM EST PULM FUNCTION SMARTBLOCK: Provider: Jacob Farooq MD Spirometry: 1 DLCO: 1 documented in this [facility]Community [facility]12[facility]-2022 [facility]12[facility]07[facility]2022 [facility]12-07-2022 History of Present illness Narrative* Yashira Kate RN - 06/24/2022 9:15 AM EST Radiology Service Progress Note DATE OF SERVICE: June 24, 2022 TIME: 8:48 AM PATIENT WEIGHT: 180 LBS PATIENT IDENTITY VERIFICATION COMPLETED USING TWO (2) STANDARD IDENTIFIERS: Name and Date of confirmed by patient verbally and Name and Date of confirmed by identification band. FALL SCREENING: Has the patient had 2 falls in the last year or 1 fall with injury or currently using an Ambulatory Assistive Device (Walker, Cane, Wheelchair, Crutches, etc.)? No PATIENT GENDER DATA: Female. status: : No status: NO. ALLERGIES: Reviewed and unchanged CONTRAST ALLERGY: No EXAM: CT -CONTRAST INDUCED NEPHROPATHY RISK FACTORS: Patient age > 60 years CREATININE: Creatinine (POCT) Date Value Ref Range Status 06/24/2022 0.60 (A) 0.7 - 1.4 mg/dL Final eGFR (POCT) Date Value Ref Range Status 06/24/2022 >60 mL/min/1.73 m2 Final P.O.C.T. RESULTS: POC done: Yes, See Lab Tab June 24, 2022 TREATMENT: No Hydration needed. IV SITE: Ambulatory: A peripheral IV was started in the Right antecubital site with a Angio cath: 20 gauge. and A Saline lock was inserted per protocol IV SITE APPEARANCE: Clean,Dry and Intact SIGNATURE: Yashira Kate RN PATIENT NAME: Jenaro Wilson DATE: June 24, 2022 TIME: 8:48 AM * RT Matt(R) - 06/24/2022 9:15 AM EST Radiology Service Progress Note PATIENT NAME: Jenaro Wilson DATE OF SERVICE: June 24, 2022 TIME: 9:18 AM PATIENT IDENTITY VERIFICATION COMPLETED USING TWO (2) IDENTIFIERS: Name and Date of confirmedby patient verbally. FALL SCREENING: Has the patient had 2 falls in the last year or 1 fall with injury or currently using an Ambulatory Assistive Device (Walker, Cane, Wheelchair, Crutches, etc.)? No PATIENT GENDER DATA: Female. status: : No status: NO. PATIENT RELEVANT IMPLANT DATA REVIEWED: Yes RADIOLOGY DEPARTMENT: CT; Exam(s) Completed: Cardiac PERIPHERAL IV DATA: Site assessment: Clean,Dry and Intact, Site disposition Discontinued SIGNED BY: RT Matt(Marcin) June 24, 2022 9:18 AM documented in this encounterCommunity [facility]12-[facility] Evaluation note* Diagnosis Onset Date Resolution Status Essential hypertension acute Fever acute History of aortic valve repl acement with bioprosthetic valve June, acute History of ascending aorta repair June, acute Nonrheumatic aortic (valve) stenosis acute Status post patent foramen ovale closure June, acute Cough chronic Bicuspid aortic valve resolv ed Anemia acute Essential hypertension acute History of aortic valve repl acement with bioprosthetic valve June, acute History of ascending aorta repair June, acute Status post patent foramen ovale closure June, 2 acute Bicuspid aortic valve resolv ed [facility] Work Phone: 1(515) 874-491212-01-2022 Evaluation note* Diagnosis Onset Date Resolution Status Essential hypertension acute Fever acute History of aortic valve repl acement with bioprosthetic valve June, acute History of ascending aorta repair June, acute Nonrheumatic aortic (valve) stenosis acute Status post patent foramen ovale closure June, 2 acute Cough chronic Bicuspid aortic valve resolv ed Anemia acute Essential hypertension acute History of aortic valve repl acement with bioprosthetic valve June, acute History of ascending aorta repair June, acute Status post patent foramen ovale closure June, 2 acute Bicuspid aortic valve resolv ed Anemia acute Essential hypertension acute History of aortic valve repl acement with bioprosthetic valve June, acute History of ascending aorta repair June, acute Status post patent foramen ovale closure June, 2 acute [facility] Work Phone: 1(300) 286-796412-01-2022 Evaluation note* Diagnosis Onset Date Resolution Status Anemia acute Essential hypertension acute History of aortic valve repl acement with bioprosthetic valve June, acute History of ascending aorta repair June, acute Status post patent foramen ovale closure June, 2 acute Bicuspid aortic valve resolv ed Anemia acute Essential hypertension acute History of aortic valve repl acement with bioprosthetic valve June, acute History of ascending aorta repair June, acute Status post patent foramen ovale closure June, 2 acute [facility] Work Phone: 1(116) 794-752411-14-2022 Miscellaneous Notes* Telephone Encounter - Kimberly Najera - 06/01/2022 1:44 PM EST Packet sent via [employer]. documented in this [facility]Community [facility]11-10-[facility]22 Miscellaneous Notes* Telephone Encounter - Daphne Caldwell - 05/28/2022 1:42 PM EST IN * Telephone Encounter - Juanis Campuzano - 05/28/2022 12:12 PM EST Please check insurance. Cards scanned in. Thank you! [facility] noteNo assessment information availableWParma [facility] Work Phone: Evaluation note* Diagnosis Onset Date Resolution Status Bicuspid aortic valve acute Dizziness acute Essential hypertension acute Nonrheumatic aortic (valve) stenosis acute Bicuspid aortic valve acute Dizziness acute Nonrheumatic aortic (valve) stenosis acute Palpitations acute Bicuspid aortic valve acute Essential hypertension acute Nonrheumatic aortic (valve) stenosis acute [facility] Work Phone: Evaluation note* Diagnosis Disorder of artery or arteriole (HCC)- Primary Unspecified disorders of arteries and arterioles Pre-operative cardiovascular examination Aortic valve disorder Aortic valve disorders [facility]* Diagnosis Aneurysm of ascending aorta without rupture- Primary Disorder of artery or arteriole (HCC) Unspecified disorders of arteries and arterioles Pre-operative cardiovascular examination Aortic valve disorder Aortic valve disorders documented in [facility] note* Diagnosis Disorder of artery or arteriole (HCC) Unspecified disorders of arteries and arterioles Pre-operative cardiovascular examination Aortic valve disorder Aortic valve disorders documented in [facility] note* Diagnosis Disorder of artery or arteriole (HCC) Unspecified disorders of arteries and arterioles Pre-operative cardiovascular examination Aortic valve disorder Aortic valve disorders Aortic valve disorder- Primary Aortic valve disorders Disorder of artery or arteriole (HCC) Unspecified disorders of arteries and arterioles Pre-operative cardiovascular examination Aortic valve disorder Aortic valve disorders documented in this [facility] note* Diagnosis Disorder of artery or arteriole (HCC) Unspecified disorders of arteries and arterioles Pre-operative cardiovascular examination Aortic valve disorder Aortic valve disorders Disorder of artery or arteriole (HCC) Unspecified disorders of arteries and arterioles Pre-operative cardiovascular examination Aortic valve disorder Aortic valve disorders documented in this [facility] note* Diagnosis Encounter for preoperative anesthesiology assessment for cardiac surgery- Primary Disorder of artery or arteriole (HCC) Unspecified disorders of arteries and arterioles Pre-operative cardiovascular examination Aortic valve disorder Aortic valve disorders documented [facility] this encounter [facility]* Diagnosis Pre-op exam- Primary Preoperative examination, unspecified Disorder of artery or arteriole (HCC) Unspecified disorders of arteries and arterioles Pre-operative cardiovascular examination Aortic valve disorder Aortic valve disorders documented in [facility]* Diagnosis Lung nodules- Primary Other nonspecific abnormal finding of lung field [facility]* Diagnosis Lung nodule- Primary Solitary pulmonary nodule [facility]* Diagnosis Surgery follow-up Follow-up examination, following unspecified surgery documented in this encounter [facility]* Diagnosis S/P AVR (aortic valve replacement)- Primary Heart valve replaced by other means documented in this encounter [facility] note* Diagnosis Onset Date Resolution Status Dizziness acute Essential hypertension acute Nonrheumatic aortic (valve) stenosis acute Bicuspid aortic valve resolv ed Dizziness acute Nonrheumatic aortic (valve) stenosis acute Palpitations acute Bicuspid aortic valve resolv ed Essential hypertension acute Nonrheumatic aortic (valve) stenosis acute Bicuspid aortic valve resolv ed Essential hypertension acute Fever acute History of aortic valve repl acement with bioprosthetic valve June, acute History of ascending aorta repair June, acute Nonrheumatic aortic (valve) stenosis acute Status post patent foramen ovale closure June, 2 acute Cough chronic Bicuspid aortic valve resolv ed [facility] Work Phone: Evaluation note* Diagnosis Onset Date Resolution Status Dizziness acute Nonrheumatic aortic (valve) stenosis acute Palpitations acute Bicuspid aortic valve resolv ed Essential hypertension acute Nonrheumatic aortic (valve) stenosis acute Bicuspid aortic valve resolv ed Essential hypertension acute Fever acute History of aortic valve repl acement with bioprosthetic valve June, acute History of ascending aorta repair June, acute Nonrheumatic aortic (valve) stenosis acute Status post patent foramen ovale closure June, 2 acute Cough chronic Bicuspid aortic valve resolv ed Anemia acute Essential hypertension acute History of aortic valve repl acement with bioprosthetic valve June, acute History of ascending aorta repair June, acute Status post patent foramen ovale closure June, 2 acute Bicuspid aortic valve resolv ed [facility] Work Phone: Evaluation note* Diagnosis Onset Date Resolution Status Essential hypertension acute Nonrheumatic aortic (valve) stenosis acute Bicuspid aortic valve resolv ed Essential hypertension acute Fever acute History of aortic valve repl acement with bioprosthetic valve June, acute History of ascending aorta repair June, acute Nonrheumatic aortic (valve) stenosis acute Status post patent foramen ovale closure June, 2 acute Cough chronic Bicuspid aortic valve resolv ed Anemia acute Essential hypertension acute History of aortic valve repl acement with bioprosthetic valve June, acute History of ascending aorta repair June, acute Status post patent foramen ovale closure June, 2 acute Bicuspid aortic valve resolv ed [facility] Work Phone: Instructions* Name Dates Details How to access health informa tion online Indication:Nonsmoker Start:28-May-2020 Instruction Type:Patient Education How to access health informa tion online - Detail Indication:Nonsmoker Start:28-May-2020 Instruction Type:Patient Education Patient Instructions Indication:Nonsmoker Start:28-May-2020 Instruction Type:Provider Instructions for Treatment How to access health informa tion online Indication:Nonsmoker Start:05-Mar-2020 Instruction Type:Patient Education How to access health informa tion online - Detail Indication:Nonsmoker Start:05-Mar-2020 Instruction Type:Patient Education Patient Instructions Indication:Nonsmoker Start:05-Mar-2020 Instruction Type:Provider Instructions for Treatment How to access health informa tion online Indication:Nonsmoker Start:05-Jun-2019 Instruction Type:Patient Education How to access health informa tion online - Detail Indication:Nonsmoker Start:05-Jun-2019 Instruction Type:Patient Education Patient Instructions Indication:Nonsmoker Start:05-Jun-2019 Instruction Type:Provider Instructions for Treatment How to access health informa tion online Indication:Nonsmoker Start:24-Feb-2019 Instruction Type:Patient Education How to access health informa tion online - Detail Indication:Nonsmoker Start:24-Feb-2019 Instruction Type:Patient Education Patient Instructions Indication:BMI 30.0-30.9,adult Start:24-Feb-2019 Instruction Type:Provider Instructions for Treatment How to access health informa tion online Indication:BMI 30.0-30.9,adult Start:06-May-2018 Instruction Type:Patient Education How to access health informa tion online - Detail Indication:BMI 30.0-30.9,adult Start:06-May-2018 Instruction Type:Patient Education Patient Instructions Indication:Nonsmoker Start:06-May-2018 Instruction Type:Provider Instructions for Treatment How to access health informa tion online Indication:Nonsmoker Start:15-Apr-2018 Instruction Type:Patient Education How to access health informa tion online - Detail Indication:Nonsmoker Start:15-Apr-2018 Instruction Type:Patient Education Patient Instructions Indication:Nonsmoker Start:15-Apr-2018 Instruction Type:Provider Instructions for Treatment Patient Instructions Indication:BMI 29.0-29.9,adult Start:03-Feb-2018 Instruction Type:Provider Instructions for Treatment How to access health informa tion online Indication:Encounter for gynecological examination without abnormal finding Start:03-Feb-2018 Instruction Type:Patient Education How to access health informa tion online - Detail Indication:Encounter for gynecological examination without abnormal finding Start:03-Feb-2018 Instruction Type:Patient Education Patient Instructions Indication:Encounter for gynecological examination without abnormal finding Start:03-Feb-2018 Instruction Type:Provider Instructions for Treatment How to access health informa tion online Indication:Hypertension, benign Start:21-Jan-2018 Instruction Type:Patient Education How to access health informa tion online - Detail Indication:Hypertension, benign Start:21-Jan-2018 Instruction Type:Patient Education Patient Instructions Indication:Hypertension, benign Start:21-Jan-2018 Instruction Type:Provider Instructions for Treatment DISCONTINUED - Vitamin D Hyd annmarie (96505) Indication:Vitamin D deficiency Start:01-Mar-2017 Instruction Type:Patient Education DISCONTINUED - METABOLIC CAREY EL, COMPREHENSIVE (23162) Indication:Hypertension, benign Start:01-Mar-2017 Instruction Type:Patient Education How to access health informa tion online Indication:UTI symptoms Start:01-Mar-2017 Instruction Type:Patient Education How to access health informa tion online - Detail Indication:UTI symptoms Start:01-Mar-2017 Instruction Type:Patient Education Patient Instructions Indication:UTI symptoms Start:01-Mar-2017 Instruction Type:Provider Instructions for Treatment How to access health informa tion online Indication:Neck pain on left side Start:08-Dec-2016 Instruction Type:Patient Education How to access health informa tion online - Detail Indication:Neck pain on left side Start:08-Dec-2016 Instruction Type:Patient Education Patient Instructions Indication:Neck pain on left side Start:08-Dec-2016 Instruction Type:Provider Instructions for Treatment How to access health informa tion online Indication:Encounter for pre-employment examination Start:06-Mar-2015 Instruction Type:Patient Education How to access health informa tion online - Detail Indication:Encounter for pre-employment examination Start:06-Mar-2015 Instruction Type:Patient Education Patient Instructions Indication:Encounter for pre-employment examination Start:06-Mar-2015 Instruction Type:Provider Instructions for Treatment Patient Instructions Indication:Other abnormal finding of urine Start:30-Mar-2014 Instruction Type:Provider Instructions for Treatment How to access health informa tion online Indication:Hypertension, benign Start:02-Feb-2014 Instruction Type:Patient Education How to access health informa tion online - Detail Indication:Hypertension, benign Start:02-Feb-2014 Instruction Type:Patient Education Patient Instructions Indication:Hypertension, benign Start:02-Feb-2014 Instruction Type:Provider Instructions for Treatment Patient Instructions Indication:Hypertension, benign Start:27-Oct-2013 Instruction Type:Provider Instructions for Treatment Patient Instructions Indication:Hypertension, benign Start:03-Jul-2013 Instruction Type:Provider Instructions for Treatment Patient Instructions Indication:Hypoalbuminemia Start:29-Mar-2013 Instruction Type:Provider Instructions for Treatment [facility]; [facility] Work Phone: Instructions* Name Dates Details Patient Instructions Indication:Hypertension, benign Start:04-Jul-2021 Instruction Type:Provider Instructions for Treatment How to Access Health Informa tion Online using Patient Portal and 3rd [employer] Apps Indication:Hypertension, benign Start:04-Jul-2021 Instruction Type:Patient Education Patient Instructions Indication:Nonsmoker Start:13-May-2021 Instruction Type:Provider Instructions for Treatment How to Access Health Informa tion Online using Patient Portal and [employer]rd [employer] Apps Indication:Nonsmoker Start:13-May-2021 Instruction Type:Patient Education How to Access Health Informa tion Online using Patient Portal and [employer] Apps Indication:Nonsmoker Start:04-Apr-2021 Instruction Type:Patient Education Patient Instructions Indication:Nonsmoker Start:04-Apr-2021 Instruction Type:Provider Instructions for Treatment Patient Instructions Indication:BMI 30.0-30.9,adult Start:21-Mar-2021 Instruction Type:Provider Instructions for Treatment How to Access Health Informa tion Online using Patient Portal and [employer]rd [employer] Apps Indication:BMI 30.0-30.9,adult Start:21-Mar-2021 Instruction Type:Patient Education How to access health informa tion online Indication:Nonsmoker Start:28-May-2020 Instruction Type:Patient Education How to access health informa tion online - Detail Indication:Nonsmoker Start:28-May-2020 Instruction Type:Patient Education Patient Instructions Indication:Nonsmoker Start:28-May-2020 Instruction Type:Provider Instructions for Treatment How to access health informa tion online Indication:Nonsmoker Start:05-Mar-2020 Instruction Type:Patient Education How to access health informa tion online - Detail Indication:Nonsmoker Start:05-Mar-2020 Instruction Type:Patient Education Patient Instructions Indication:Nonsmoker Start:05-Mar-2020 Instruction Type:Provider Instructions for Treatment How to access health informa tion online Indication:Nonsmoker Start:05-Jun-2019 Instruction Type:Patient Education How to access health informa tion online - Detail Indication:Nonsmoker Start:05-Jun-2019 Instruction Type:Patient Education Patient Instructions Indication:Nonsmoker Start:05-Jun-2019 Instruction Type:Provider Instructions for Treatment How to access health informa tion online Indication:Nonsmoker Start:24-Feb-2019 Instruction Type:Patient Education How to access health informa tion online - Detail Indication:Nonsmoker Start:24-Feb-2019 Instruction Type:Patient Education Patient Instructions Indication:BMI 30.0-30.9,adult Start:24-Feb-2019 Instruction Type:Provider Instructions for Treatment How to access health informa tion online Indication:BMI 30.0-30.9,adult Start:06-May-2018 Instruction Type:Patient Education How to access health informa tion online - Detail Indication:BMI 30.0-30.9,adult Start:06-May-2018 Instruction Type:Patient Education Patient Instructions Indication:Nonsmoker Start:06-May-2018 Instruction Type:Provider Instructions for Treatment How to access health informa tion online Indication:Nonsmoker Start:15-Apr-2018 Instruction Type:Patient Education How to access health informa tion online - Detail Indication:Nonsmoker Start:15-Apr-2018 Instruction Type:Patient Education Patient Instructions Indication:Nonsmoker Start:15-Apr-2018 Instruction Type:Provider Instructions for Treatment Patient Instructions Indication:BMI 29.0-29.9,adult Start:03-Feb-2018 Instruction Type:Provider Instructions for Treatment How to access health informa tion online Indication:Encounter for gynecological examination without abnormal finding Start:03-Feb-2018 Instruction Type:Patient Education How to access health informa tion online - Detail Indication:Encounter for gynecological examination without abnormal finding Start:03-Feb-2018 Instruction Type:Patient Education Patient Instructions Indication:Encounter for gynecological examination without abnormal finding Start:03-Feb-2018 Instruction Type:Provider Instructions for Treatment How to access health informa tion online Indication:Hypertension, benign Start:21-Jan-2018 Instruction Type:Patient Education How to access health informa tion online - Detail Indication:Hypertension, benign Start:21-Jan-2018 Instruction Type:Patient Education Patient Instructions Indication:Hypertension, benign Start:21-Jan-2018 Instruction Type:Provider Instructions for Treatment DISCONTINUED - Vitamin D Hyd annmarie (21752) Indication:Vitamin D deficiency Start:01-Mar-2017 Instruction Type:Patient Education DISCONTINUED - METABOLIC CAREY EL, COMPREHENSIVE (12257) Indication:Hypertension, benign Start:01-Mar-2017 Instruction Type:Patient Education How to access health informa tion online Indication:UTI symptoms Start:01-Mar-2017 Instruction Type:Patient Education How to access health informa tion online - Detail Indication:UTI symptoms Start:01-Mar-2017 Instruction Type:Patient Education Patient Instructions Indication:UTI symptoms Start:01-Mar-2017 Instruction Type:Provider Instructions for Treatment How to access health informa tion online Indication:Neck pain on left side Start:08-Dec-2016 Instruction Type:Patient Education How to access health informa tion online - Detail Indication:Neck pain on left side Start:08-Dec-2016 Instruction Type:Patient Education Patient Instructions Indication:Neck pain on left side Start:08-Dec-2016 Instruction Type:Provider Instructions for Treatment How to access health informa tion online Indication:Encounter for pre-employment examination Start:06-Mar-2015 Instruction Type:Patient Education How to access health informa tion online - Detail Indication:Encounter for pre-employment examination Start:06-Mar-2015 Instruction Type:Patient Education Patient Instructions Indication:Encounter for pre-employment examination Start:06-Mar-2015 Instruction Type:Provider Instructions for Treatment Patient Instructions Indication:Other abnormal finding of urine Start:30-Mar-2014 Instruction Type:Provider Instructions for Treatment How to access health informa tion online Indication:Hypertension, benign Start:02-Feb-2014 Instruction Type:Patient Education How to access health informa tion online - Detail Indication:Hypertension, benign Start:02-Feb-2014 Instruction Type:Patient Education Patient Instructions Indication:Hypertension, benign Start:02-Feb-2014 Instruction Type:Provider Instructions for Treatment Patient Instructions Indication:Hypertension, benign Start:27-Oct-2013 Instruction Type:Provider Instructions for Treatment Patient Instructions Indication:Hypertension, benign Start:03-Jul-2013 Instruction Type:Provider Instructions for Treatment Patient Instructions Indication:Hypoalbuminemia Start:29-Mar-2013 Instruction Type:Provider Instructions for Treatment [facility]; [facility] Work Phone: Instructions* Name Dates Details Patient Instructions Indication:Hypertension, benign Start:04-Jul-2021 Instruction Type:Provider Instructions for Treatment How to Access Health Informa tion Online using Patient Portal and [employer]rd [employer] Apps Indication:Hypertension, benign Start:04-Jul-2021 Instruction Type:Patient Education Patient Instructions Indication:Nonsmoker Start:13-May-2021 Instruction Type:Provider Instructions for Treatment How to Access Health Informa tion Online using Patient Portal and [employer] Apps Indication:Nonsmoker Start:13-May-2021 Instruction Type:Patient Education How to Access Health Informa tion Online using Patient Portal and [employer] Apps Indication:Nonsmoker Start:04-Apr-2021 Instruction Type:Patient Education Patient Instructions Indication:Nonsmoker Start:04-Apr-2021 Instruction Type:Provider Instructions for Treatment Patient Instructions Indication:BMI 30.0-30.9,adult Start:21-Mar-2021 Instruction Type:Provider Instructions for Treatment How to Access Health Informa tion Online using Patient Portal and [employer] Apps Indication:BMI 30.0-30.9,adult Start:21-Mar-2021 Instruction Type:Patient Education How to access health informa tion online Indication:Nonsmoker Start:28-May-2020 Instruction Type:Patient Education How to access health informa tion online - Detail Indication:Nonsmoker Start:28-May-2020 Instruction Type:Patient Education Patient Instructions Indication:Nonsmoker Start:28-May-2020 Instruction Type:Provider Instructions for Treatment How to access health informa tion online Indication:Nonsmoker Start:05-Mar-2020 Instruction Type:Patient Education How to access health informa tion online - Detail Indication:Nonsmoker Start:05-Mar-2020 Instruction Type:Patient Education Patient Instructions Indication:Nonsmoker Start:05-Mar-2020 Instruction Type:Provider Instructions for Treatment How to access health informa tion online Indication:Nonsmoker Start:05-Jun-2019 Instruction Type:Patient Education How to access health informa tion online - Detail Indication:Nonsmoker Start:05-Jun-2019 Instruction Type:Patient Education Patient Instructions Indication:Nonsmoker Start:05-Jun-2019 Instruction Type:Provider Instructions for Treatment How to access health informa tion online Indication:Nonsmoker Start:24-Feb-2019 Instruction Type:Patient Education How to access health informa tion online - Detail Indication:Nonsmoker Start:24-Feb-2019 Instruction Type:Patient Education Patient Instructions Indication:BMI 30.0-30.9,adult Start:24-Feb-2019 Instruction Type:Provider Instructions for Treatment How to access health informa tion online Indication:BMI 30.0-30.9,adult Start:06-May-2018 Instruction Type:Patient Education How to access health informa tion online - Detail Indication:BMI 30.0-30.9,adult Start:06-May-2018 Instruction Type:Patient Education Patient Instructions Indication:Nonsmoker Start:06-May-2018 Instruction Type:Provider Instructions for Treatment How to access health informa tion online Indication:Nonsmoker Start:15-Apr-2018 Instruction Type:Patient Education How to access health informa tion online - Detail Indication:Nonsmoker Start:15-Apr-2018 Instruction Type:Patient Education Patient Instructions Indication:Nonsmoker Start:15-Apr-2018 Instruction Type:Provider Instructions for Treatment Patient Instructions Indication:BMI 29.0-29.9,adult Start:03-Feb-2018 Instruction Type:Provider Instructions for Treatment How to access health informa tion online Indication:Encounter for gynecological examination without abnormal finding Start:03-Feb-2018 Instruction Type:Patient Education How to access health informa tion online - Detail Indication:Encounter for gynecological examination without abnormal finding Start:03-Feb-2018 Instruction Type:Patient Education Patient Instructions Indication:Encounter for gynecological examination without abnormal finding Start:03-Feb-2018 Instruction Type:Provider Instructions for Treatment How to access health informa tion online Indication:Hypertension, benign Start:21-Jan-2018 Instruction Type:Patient Education How to access health informa tion online - Detail Indication:Hypertension, benign Start:21-Jan-2018 Instruction Type:Patient Education Patient Instructions Indication:Hypertension, benign Start:21-Jan-2018 Instruction Type:Provider Instructions for Treatment DISCONTINUED - Vitamin D Hyd annmarie (42245) Indication:Vitamin D deficiency Start:01-Mar-2017 Instruction Type:Patient Education DISCONTINUED - METABOLIC CAREY EL, COMPREHENSIVE ([id number]) Indication:Hypertension, benign Start:01-Mar-2017 Instruction Type:Patient Education How to access health informa tion online Indication:UTI symptoms Start:01-Mar-2017 Instruction Type:Patient Education How to access health informa tion online - Detail Indication:UTI symptoms Start:01-Mar-2017 Instruction Type:Patient Education Patient Instructions Indication:UTI symptoms Start:01-Mar-2017 Instruction Type:Provider Instructions for Treatment How to access health informa tion online Indication:Neck pain on left side Start:08-Dec-2016 Instruction Type:Patient Education How to access health informa tion online - Detail Indication:Neck pain on left side Start:08-Dec-2016 Instruction Type:Patient Education Patient Instructions Indication:Neck pain on left side Start:08-Dec-2016 Instruction Type:Provider Instructions for Treatment How to access health informa tion online Indication:Encounter for pre-employment examination Start:06-Mar-2015 Instruction Type:Patient Education How to access health informa tion online - Detail Indication:Encounter for pre-employment examination Start:06-Mar-2015 Instruction Type:Patient Education Patient Instructions Indication:Encounter for pre-employment examination Start:06-Mar-2015 Instruction Type:Provider Instructions for Treatment Patient Instructions Indication:Other abnormal finding of urine Start:30-Mar-2014 Instruction Type:Provider Instructions for Treatment How to access health informa tion online Indication:Hypertension, benign Start:02-Feb-2014 Instruction Type:Patient Education How to access health informa tion online - Detail Indication:Hypertension, benign Start:02-Feb-2014 Instruction Type:Patient Education Patient Instructions Indication:Hypertension, benign Start:02-Feb-2014 Instruction Type:Provider Instructions for Treatment Patient Instructions Indication:Hypertension, benign Start:27-Oct-2013 Instruction Type:Provider Instructions for Treatment Patient Instructions Indication:Hypertension, benign Start:03-Jul-2013 Instruction Type:Provider Instructions for Treatment Patient Instructions Indication:Hypoalbuminemia Start:29-Mar-2013 Instruction Type:Provider Instructions for Treatment [facility]; [facility] Work Phone: Instructions* Name Dates Details Patient Instructions Indication:Hypertension, benign Start:16-Dec-2021 Instruction Type:Provider Instructions for Treatment Patient Instructions Indication:Hypertension, benign Start:04-Jul-2021 Instruction Type:Provider Instructions for Treatment How to Access Health Informa tion Online using Patient Portal and [employer]rd [employer] Apps Indication:Hypertension, benign Start:04-Jul-2021 Instruction Type:Patient Education Patient Instructions Indication:Nonsmoker Start:13-May-2021 Instruction Type:Provider Instructions for Treatment How to Access Health Informa tion Online using Patient Portal and [employer] Apps Indication:Nonsmoker Start:13-May-2021 Instruction Type:Patient Education How to Access Health Informa tion Online using Patient Portal and [employer] Apps Indication:Nonsmoker Start:04-Apr-2021 Instruction Type:Patient Education Patient Instructions Indication:Nonsmoker Start:04-Apr-2021 Instruction Type:Provider Instructions for Treatment Patient Instructions Indication:BMI 30.0-30.9,adult Start:21-Mar-2021 Instruction Type:Provider Instructions for Treatment How to Access Health Informa tion Online using Patient Portal and [employer] Apps Indication:BMI 30.0-30.9,adult Start:21-Mar-2021 Instruction Type:Patient Education How to access health informa tion online Indication:Nonsmoker Start:28-May-2020 Instruction Type:Patient Education How to access health informa tion online - Detail Indication:Nonsmoker Start:28-May-2020 Instruction Type:Patient Education Patient Instructions Indication:Nonsmoker Start:28-May-2020 Instruction Type:Provider Instructions for Treatment How to access health informa tion online Indication:Nonsmoker Start:05-Mar-2020 Instruction Type:Patient Education How to access health informa tion online - Detail Indication:Nonsmoker Start:05-Mar-2020 Instruction Type:Patient Education Patient Instructions Indication:Nonsmoker Start:05-Mar-2020 Instruction Type:Provider Instructions for Treatment How to access health informa tion online Indication:Nonsmoker Start:05-Jun-2019 Instruction Type:Patient Education How to access health informa tion online - Detail Indication:Nonsmoker Start:05-Jun-2019 Instruction Type:Patient Education Patient Instructions Indication:Nonsmoker Start:05-Jun-2019 Instruction Type:Provider Instructions for Treatment How to access health informa tion online Indication:Nonsmoker Start:24-Feb-2019 Instruction Type:Patient Education How to access health informa tion online - Detail Indication:Nonsmoker Start:24-Feb-2019 Instruction Type:Patient Education Patient Instructions Indication:BMI 30.0-30.9,adult Start:24-Feb-2019 Instruction Type:Provider Instructions for Treatment How to access health informa tion online Indication:BMI 30.0-30.9,adult Start:06-May-2018 Instruction Type:Patient Education How to access health informa tion online - Detail Indication:BMI 30.0-30.9,adult Start:06-May-2018 Instruction Type:Patient Education Patient Instructions Indication:Nonsmoker Start:06-May-2018 Instruction Type:Provider Instructions for Treatment How to access health informa tion online Indication:Nonsmoker Start:15-Apr-2018 Instruction Type:Patient Education How to access health informa tion online - Detail Indication:Nonsmoker Start:15-Apr-2018 Instruction Type:Patient Education Patient Instructions Indication:Nonsmoker Start:15-Apr-2018 Instruction Type:Provider Instructions for Treatment Patient Instructions Indication:BMI 29.0-29.9,adult Start:03-Feb-2018 Instruction Type:Provider Instructions for Treatment How to access health informa tion online Indication:Encounter for gynecological examination without abnormal finding Start:03-Feb-2018 Instruction Type:Patient Education How to access health informa tion online - Detail Indication:Encounter for gynecological examination without abnormal finding Start:03-Feb-2018 Instruction Type:Patient Education Patient Instructions Indication:Encounter for gynecological examination without abnormal finding Start:03-Feb-2018 Instruction Type:Provider Instructions for Treatment How to access health informa tion online Indication:Hypertension, benign Start:21-Jan-2018 Instruction Type:Patient Education How to access health informa tion online - Detail Indication:Hypertension, benign Start:21-Jan-2018 Instruction Type:Patient Education Patient Instructions Indication:Hypertension, benign Start:21-Jan-2018 Instruction Type:Provider Instructions for Treatment DISCONTINUED - Vitamin D Hyd annmarie (78589) Indication:Vitamin D deficiency Start:01-Mar-2017 Instruction Type:Patient Education DISCONTINUED - METABOLIC CAREY EL, COMPREHENSIVE (41212) Indication:Hypertension, benign Start:01-Mar-2017 Instruction Type:Patient Education How to access health informa tion online Indication:UTI symptoms Start:01-Mar-2017 Instruction Type:Patient Education How to access health informa tion online - Detail Indication:UTI symptoms Start:01-Mar-2017 Instruction Type:Patient Education Patient Instructions Indication:UTI symptoms Start:01-Mar-2017 Instruction Type:Provider Instructions for Treatment How to access health informa tion online Indication:Neck pain on left side Start:08-Dec-2016 Instruction Type:Patient Education How to access health informa tion online - Detail Indication:Neck pain on left side Start:08-Dec-2016 Instruction Type:Patient Education Patient Instructions Indication:Neck pain on left side Start:08-Dec-2016 Instruction Type:Provider Instructions for Treatment How to access health informa tion online Indication:Encounter for pre-employment examination Start:06-Mar-2015 Instruction Type:Patient Education How to access health informa tion online - Detail Indication:Encounter for pre-employment examination Start:06-Mar-2015 Instruction Type:Patient Education Patient Instructions Indication:Encounter for pre-employment examination Start:06-Mar-2015 Instruction Type:Provider Instructions for Treatment Patient Instructions Indication:Other abnormal finding of urine Start:30-Mar-2014 Instruction Type:Provider Instructions for Treatment How to access health informa tion online Indication:Hypertension, benign Start:02-Feb-2014 Instruction Type:Patient Education How to access health informa tion online - Detail Indication:Hypertension, benign Start:02-Feb-2014 Instruction Type:Patient Education Patient Instructions Indication:Hypertension, benign Start:02-Feb-2014 Instruction Type:Provider Instructions for Treatment Patient Instructions Indication:Hypertension, benign Start:27-Oct-2013 Instruction Type:Provider Instructions for Treatment Patient Instructions Indication:Hypertension, benign Start:03-Jul-2013 Instruction Type:Provider Instructions for Treatment Patient Instructions Indication:Hypoalbuminemia Start:29-Mar-2013 Instruction Type:Provider Instructions for Treatment [facility]; [facility] Work Phone: Instructions* Name Dates Details Patient Instructions Indication:Hypertension, benign Start:16-Dec-2021 Instruction Type:Provider Instructions for Treatment Patient Instructions Indication:Hypertension, benign Start:04-Jul-2021 Instruction Type:Provider Instructions for Treatment How to Access Health Informa tion Online using Patient Portal and [employer] Apps Indication:Hypertension, benign Start:04-Jul-2021 Instruction Type:Patient Education Patient Instructions Indication:Nonsmoker Start:13-May-2021 Instruction Type:Provider Instructions for Treatment How to Access Health Informa tion Online using Patient Portal and [employer] Apps Indication:Nonsmoker Start:13-May-2021 Instruction Type:Patient Education How to Access Health Informa tion Online using Patient Portal and [employer] Apps Indication:Nonsmoker Start:04-Apr-2021 Instruction Type:Patient Education Patient Instructions Indication:Nonsmoker Start:04-Apr-2021 Instruction Type:Provider Instructions for Treatment Patient Instructions Indication:BMI 30.0-30.9,adult Start:21-Mar-2021 Instruction Type:Provider Instructions for Treatment How to Access Health Informa tion Online using Patient Portal and [employer] Apps Indication:BMI 30.0-30.9,adult Start:21-Mar-2021 Instruction Type:Patient Education How to access health informa tion online Indication:Nonsmoker Start:28-May-2020 Instruction Type:Patient Education How to access health informa tion online - Detail Indication:Nonsmoker Start:28-May-2020 Instruction Type:Patient Education Patient Instructions Indication:Nonsmoker Start:28-May-2020 Instruction Type:Provider Instructions for Treatment How to access health informa tion online Indication:Nonsmoker Start:05-Mar-2020 Instruction Type:Patient Education How to access health informa tion online - Detail Indication:Nonsmoker Start:05-Mar-2020 Instruction Type:Patient Education Patient Instructions Indication:Nonsmoker Start:05-Mar-2020 Instruction Type:Provider Instructions for Treatment How to access health informa tion online Indication:Nonsmoker Start:05-Jun-2019 Instruction Type:Patient Education How to access health informa tion online - Detail Indication:Nonsmoker Start:05-Jun-2019 Instruction Type:Patient Education Patient Instructions Indication:Nonsmoker Start:05-Jun-2019 Instruction Type:Provider Instructions for Treatment How to access health informa tion online Indication:Nonsmoker Start:24-Feb-2019 Instruction Type:Patient Education How to access health informa tion online - Detail Indication:Nonsmoker Start:24-Feb-2019 Instruction Type:Patient Education Patient Instructions Indication:BMI 30.0-30.9,adult Start:24-Feb-2019 Instruction Type:Provider Instructions for Treatment How to access health informa tion online Indication:BMI 30.0-30.9,adult Start:06-May-2018 Instruction Type:Patient Education How to access health informa tion online - Detail Indication:BMI 30.0-30.9,adult Start:06-May-2018 Instruction Type:Patient Education Patient Instructions Indication:Nonsmoker Start:06-May-2018 Instruction Type:Provider Instructions for Treatment How to access health informa tion online Indication:Nonsmoker Start:15-Apr-2018 Instruction Type:Patient Education How to access health informa tion online - Detail Indication:Nonsmoker Start:15-Apr-2018 Instruction Type:Patient Education Patient Instructions Indication:Nonsmoker Start:15-Apr-2018 Instruction Type:Provider Instructions for Treatment Patient Instructions Indication:BMI 29.0-29.9,adult Start:03-Feb-2018 Instruction Type:Provider Instructions for Treatment How to access health informa tion online Indication:Encounter for gynecological examination without abnormal finding Start:03-Feb-2018 Instruction Type:Patient Education How to access health informa tion online - Detail Indication:Encounter for gynecological examination without abnormal finding Start:03-Feb-2018 Instruction Type:Patient Education Patient Instructions Indication:Encounter for gynecological examination without abnormal finding Start:03-Feb-2018 Instruction Type:Provider Instructions for Treatment How to access health informa tion online Indication:Hypertension, benign Start:21-Jan-2018 Instruction Type:Patient Education How to access health informa tion online - Detail Indication:Hypertension, benign Start:21-Jan-2018 Instruction Type:Patient Education Patient Instructions Indication:Hypertension, benign Start:21-Jan-2018 Instruction Type:Provider Instructions for Treatment DISCONTINUED - Vitamin D Hyd annmarie (16778) Indication:Vitamin D deficiency Start:01-Mar-2017 Instruction Type:Patient Education DISCONTINUED - METABOLIC CAREY EL, COMPREHENSIVE ([id number]) Indication:Hypertension, benign Start:01-Mar-2017 Instruction Type:Patient Education How to access health informa tion online Indication:UTI symptoms Start:01-Mar-2017 Instruction Type:Patient Education How to access health informa tion online - Detail Indication:UTI symptoms Start:01-Mar-2017 Instruction Type:Patient Education Patient Instructions Indication:UTI symptoms Start:01-Mar-2017 Instruction Type:Provider Instructions for Treatment How to access health informa tion online Indication:Neck pain on left side Start:08-Dec-2016 Instruction Type:Patient Education How to access health informa tion online - Detail Indication:Neck pain on left side Start:08-Dec-2016 Instruction Type:Patient Education Patient Instructions Indication:Neck pain on left side Start:08-Dec-2016 Instruction Type:Provider Instructions for Treatment How to access health informa tion online Indication:Encounter for pre-employment examination Start:06-Mar-2015 Instruction Type:Patient Education How to access health informa tion online - Detail Indication:Encounter for pre-employment examination Start:06-Mar-2015 Instruction Type:Patient Education Patient Instructions Indication:Encounter for pre-employment examination Start:06-Mar-2015 Instruction Type:Provider Instructions for Treatment Patient Instructions Indication:Other abnormal finding of urine Start:30-Mar-2014 Instruction Type:Provider Instructions for Treatment How to access health informa tion online Indication:Hypertension, benign Start:02-Feb-2014 Instruction Type:Patient Education How to access health informa tion online - Detail Indication:Hypertension, benign Start:02-Feb-2014 Instruction Type:Patient Education Patient Instructions Indication:Hypertension, benign Start:02-Feb-2014 Instruction Type:Provider Instructions for Treatment Patient Instructions Indication:Hypertension, benign Start:27-Oct-2013 Instruction Type:Provider Instructions for Treatment Patient Instructions Indication:Hypertension, benign Start:03-Jul-2013 Instruction Type:Provider Instructions for Treatment Patient Instructions Indication:Hypoalbuminemia Start:29-Mar-2013 Instruction Type:Provider Instructions for Treatment [facility]; [facility] Work Phone: Instructions* Name Dates Details Patient Instructions Indication:Hypokalemia (Renamed from Decreased potassium in the blood) Start:31-Dec-2021 Instruction Type:Provider Instructions for Treatment How to Access Health Informa tion Online using Patient Portal and [employer] Apps Indication:Hypokalemia (Renamed from Decreased potassium in the blood) Start:31-Dec-2021 Instruction Type:Patient Education Patient Instructions Indication:Hypertension, benign Start:16-Dec-2021 Instruction Type:Provider Instructions for Treatment Patient Instructions Indication:Hypertension, benign Start:04-Jul-2021 Instruction Type:Provider Instructions for Treatment How to Access Health Informa tion Online using Patient Portal and [employer] Apps Indication:Hypertension, benign Start:04-Jul-2021 Instruction Type:Patient Education Patient Instructions Indication:Nonsmoker Start:13-May-2021 Instruction Type:Provider Instructions for Treatment How to Access Health Informa tion Online using Patient Portal and [employer]rd [employer] Apps Indication:Nonsmoker Start:13-May-2021 Instruction Type:Patient Education How to Access Health Informa tion Online using Patient Portal and [employer] Apps Indication:Nonsmoker Start:04-Apr-2021 Instruction Type:Patient Education Patient Instructions Indication:Nonsmoker Start:04-Apr-2021 Instruction Type:Provider Instructions for Treatment Patient Instructions Indication:BMI 30.0-30.9,adult Start:21-Mar-2021 Instruction Type:Provider Instructions for Treatment How to Access Health Informa tion Online using Patient Portal and [employer] Apps Indication:BMI 30.0-30.9,adult Start:21-Mar-2021 Instruction Type:Patient Education How to access health informa tion online Indication:Nonsmoker Start:28-May-2020 Instruction Type:Patient Education How to access health informa tion online - Detail Indication:Nonsmoker Start:28-May-2020 Instruction Type:Patient Education Patient Instructions Indication:Nonsmoker Start:28-May-2020 Instruction Type:Provider Instructions for Treatment How to access health informa tion online Indication:Nonsmoker Start:05-Mar-2020 Instruction Type:Patient Education How to access health informa tion online - Detail Indication:Nonsmoker Start:05-Mar-2020 Instruction Type:Patient Education Patient Instructions Indication:Nonsmoker Start:05-Mar-2020 Instruction Type:Provider Instructions for Treatment How to access health informa tion online Indication:Nonsmoker Start:05-Jun-2019 Instruction Type:Patient Education How to access health informa tion online - Detail Indication:Nonsmoker Start:05-Jun-2019 Instruction Type:Patient Education Patient Instructions Indication:Nonsmoker Start:05-Jun-2019 Instruction Type:Provider Instructions for Treatment How to access health informa tion online Indication:Nonsmoker Start:24-Feb-2019 Instruction Type:Patient Education How to access health informa tion online - Detail Indication:Nonsmoker Start:24-Feb-2019 Instruction Type:Patient Education Patient Instructions Indication:BMI 30.0-30.9,adult Start:24-Feb-2019 Instruction Type:Provider Instructions for Treatment How to access health informa tion online Indication:BMI 30.0-30.9,adult Start:06-May-2018 Instruction Type:Patient Education How to access health informa tion online - Detail Indication:BMI 30.0-30.9,adult Start:06-May-2018 Instruction Type:Patient Education Patient Instructions Indication:Nonsmoker Start:06-May-2018 Instruction Type:Provider Instructions for Treatment How to access health informa tion online Indication:Nonsmoker Start:15-Apr-2018 Instruction Type:Patient Education How to access health informa tion online - Detail Indication:Nonsmoker Start:15-Apr-2018 Instruction Type:Patient Education Patient Instructions Indication:Nonsmoker Start:15-Apr-2018 Instruction Type:Provider Instructions for Treatment Patient Instructions Indication:BMI 29.0-29.9,adult Start:03-Feb-2018 Instruction Type:Provider Instructions for Treatment How to access health informa tion online Indication:Encounter for gynecological examination without abnormal finding Start:03-Feb-2018 Instruction Type:Patient Education How to access health informa tion online - Detail Indication:Encounter for gynecological examination without abnormal finding Start:03-Feb-2018 Instruction Type:Patient Education Patient Instructions Indication:Encounter for gynecological examination without abnormal finding Start:03-Feb-2018 Instruction Type:Provider Instructions for Treatment How to access health informa tion online Indication:Hypertension, benign Start:21-Jan-2018 Instruction Type:Patient Education How to access health informa tion online - Detail Indication:Hypertension, benign Start:21-Jan-2018 Instruction Type:Patient Education Patient Instructions Indication:Hypertension, benign Start:21-Jan-2018 Instruction Type:Provider Instructions for Treatment DISCONTINUED - Vitamin D Hyd annmarie (84901) Indication:Vitamin D deficiency Start:01-Mar-2017 Instruction Type:Patient Education DISCONTINUED - METABOLIC CAREY EL, COMPREHENSIVE ([id number]) Indication:Hypertension, benign Start:01-Mar-2017 Instruction Type:Patient Education How to access health informa tion online Indication:UTI symptoms Start:01-Mar-2017 Instruction Type:Patient Education How to access health informa tion online - Detail Indication:UTI symptoms Start:01-Mar-2017 Instruction Type:Patient Education Patient Instructions Indication:UTI symptoms Start:01-Mar-2017 Instruction Type:Provider Instructions for Treatment How to access health informa tion online Indication:Neck pain on left side Start:08-Dec-2016 Instruction Type:Patient Education How to access health informa tion online - Detail Indication:Neck pain on left side Start:08-Dec-2016 Instruction Type:Patient Education Patient Instructions Indication:Neck pain on left side Start:08-Dec-2016 Instruction Type:Provider Instructions for Treatment How to access health informa tion online Indication:Encounter for pre-employment examination Start:06-Mar-2015 Instruction Type:Patient Education How to access health informa tion online - Detail Indication:Encounter for pre-employment examination Start:06-Mar-2015 Instruction Type:Patient Education Patient Instructions Indication:Encounter for pre-employment examination Start:06-Mar-2015 Instruction Type:Provider Instructions for Treatment Patient Instructions Indication:Other abnormal finding of urine Start:30-Mar-2014 Instruction Type:Provider Instructions for Treatment How to access health informa tion online Indication:Hypertension, benign Start:02-Feb-2014 Instruction Type:Patient Education How to access health informa tion online - Detail Indication:Hypertension, benign Start:02-Feb-2014 Instruction Type:Patient Education Patient Instructions Indication:Hypertension, benign Start:02-Feb-2014 Instruction Type:Provider Instructions for Treatment Patient Instructions Indication:Hypertension, benign Start:27-Oct-2013 Instruction Type:Provider Instructions for Treatment Patient Instructions Indication:Hypertension, benign Start:03-Jul-2013 Instruction Type:Provider Instructions for Treatment Patient Instructions Indication:Hypoalbuminemia Start:29-Mar-2013 Instruction Type:Provider Instructions for Treatment [facility]; [facility] Work Phone: Instructions* Name Dates Details Patient Instructions Indication:Hypokalemia (Renamed from Decreased potassium in the blood) Start:31-Dec-2021 Instruction Type:Provider Instructions for Treatment How to Access Health Informa tion Online using Patient Portal and [employer] Apps Indication:Hypokalemia (Renamed from Decreased potassium in the blood) Start:31-Dec-2021 Instruction Type:Patient Education Patient Instructions Indication:Hypertension, benign Start:16-Dec-2021 Instruction Type:Provider Instructions for Treatment Patient Instructions Indication:Hypertension, benign Start:04-Jul-2021 Instruction Type:Provider Instructions for Treatment How to Access Health Informa tion Online using Patient Portal and [employer] Apps Indication:Hypertension, benign Start:04-Jul-2021 Instruction Type:Patient Education Patient Instructions Indication:Nonsmoker Start:13-May-2021 Instruction Type:Provider Instructions for Treatment How to Access Health Informa tion Online using Patient Portal and [employer] Apps Indication:Nonsmoker Start:13-May-2021 Instruction Type:Patient Education How to Access Health Informa tion Online using Patient Portal and [employer] Apps Indication:Nonsmoker Start:04-Apr-2021 Instruction Type:Patient Education Patient Instructions Indication:Nonsmoker Start:04-Apr-2021 Instruction Type:Provider Instructions for Treatment Patient Instructions Indication:BMI 30.0-30.9,adult Start:21-Mar-2021 Instruction Type:Provider Instructions for Treatment How to Access Health Informa tion Online using Patient Portal and [employer] Apps Indication:BMI 30.0-30.9,adult Start:21-Mar-2021 Instruction Type:Patient Education How to access health informa tion online Indication:Nonsmoker Start:28-May-2020 Instruction Type:Patient Education How to access health informa tion online - Detail Indication:Nonsmoker Start:28-May-2020 Instruction Type:Patient Education Patient Instructions Indication:Nonsmoker Start:28-May-2020 Instruction Type:Provider Instructions for Treatment How to access health informa tion online Indication:Nonsmoker Start:05-Mar-2020 Instruction Type:Patient Education How to access health informa tion online - Detail Indication:Nonsmoker Start:05-Mar-2020 Instruction Type:Patient Education Patient Instructions Indication:Nonsmoker Start:05-Mar-2020 Instruction Type:Provider Instructions for Treatment How to access health informa tion online Indication:Nonsmoker Start:05-Jun-2019 Instruction Type:Patient Education How to access health informa tion online - Detail Indication:Nonsmoker Start:05-Jun-2019 Instruction Type:Patient Education Patient Instructions Indication:Nonsmoker Start:05-Jun-2019 Instruction Type:Provider Instructions for Treatment How to access health informa tion online Indication:Nonsmoker Start:24-Feb-2019 Instruction Type:Patient Education How to access health informa tion online - Detail Indication:Nonsmoker Start:24-Feb-2019 Instruction Type:Patient Education Patient Instructions Indication:BMI 30.0-30.9,adult Start:24-Feb-2019 Instruction Type:Provider Instructions for Treatment How to access health informa tion online Indication:BMI 30.0-30.9,adult Start:06-May-2018 Instruction Type:Patient Education How to access health informa tion online - Detail Indication:BMI 30.0-30.9,adult Start:06-May-2018 Instruction Type:Patient Education Patient Instructions Indication:Nonsmoker Start:06-May-2018 Instruction Type:Provider Instructions for Treatment How to access health informa tion online Indication:Nonsmoker Start:15-Apr-2018 Instruction Type:Patient Education How to access health informa tion online - Detail Indication:Nonsmoker Start:15-Apr-2018 Instruction Type:Patient Education Patient Instructions Indication:Nonsmoker Start:15-Apr-2018 Instruction Type:Provider Instructions for Treatment Patient Instructions Indication:BMI 29.0-29.9,adult Start:03-Feb-2018 Instruction Type:Provider Instructions for Treatment How to access health informa tion online Indication:Encounter for gynecological examination without abnormal finding Start:03-Feb-2018 Instruction Type:Patient Education How to access health informa tion online - Detail Indication:Encounter for gynecological examination without abnormal finding Start:03-Feb-2018 Instruction Type:Patient Education Patient Instructions Indication:Encounter for gynecological examination without abnormal finding Start:03-Feb-2018 Instruction Type:Provider Instructions for Treatment How to access health informa tion online Indication:Hypertension, benign Start:21-Jan-2018 Instruction Type:Patient Education How to access health informa tion online - Detail Indication:Hypertension, benign Start:21-Jan-2018 Instruction Type:Patient Education Patient Instructions Indication:Hypertension, benign Start:21-Jan-2018 Instruction Type:Provider Instructions for Treatment DISCONTINUED - Vitamin D Hyd annmarie (51413) Indication:Vitamin D deficiency Start:01-Mar-2017 Instruction Type:Patient Education DISCONTINUED - METABOLIC CAREY EL, COMPREHENSIVE ([id number]) Indication:Hypertension, benign Start:01-Mar-2017 Instruction Type:Patient Education How to access health informa tion online Indication:UTI symptoms Start:01-Mar-2017 Instruction Type:Patient Education How to access health informa tion online - Detail Indication:UTI symptoms Start:01-Mar-2017 Instruction Type:Patient Education Patient Instructions Indication:UTI symptoms Start:01-Mar-2017 Instruction Type:Provider Instructions for Treatment How to access health informa tion online Indication:Neck pain on left side Start:08-Dec-2016 Instruction Type:Patient Education How to access health informa tion online - Detail Indication:Neck pain on left side Start:08-Dec-2016 Instruction Type:Patient Education Patient Instructions Indication:Neck pain on left side Start:08-Dec-2016 Instruction Type:Provider Instructions for Treatment How to access health informa tion online Indication:Encounter for pre-employment examination Start:06-Mar-2015 Instruction Type:Patient Education How to access health informa tion online - Detail Indication:Encounter for pre-employment examination Start:06-Mar-2015 Instruction Type:Patient Education Patient Instructions Indication:Encounter for pre-employment examination Start:06-Mar-2015 Instruction Type:Provider Instructions for Treatment Patient Instructions Indication:Other abnormal finding of urine Start:30-Mar-2014 Instruction Type:Provider Instructions for Treatment How to access health informa tion online Indication:Hypertension, benign Start:02-Feb-2014 Instruction Type:Patient Education How to access health informa tion online - Detail Indication:Hypertension, benign Start:02-Feb-2014 Instruction Type:Patient Education Patient Instructions Indication:Hypertension, benign Start:02-Feb-2014 Instruction Type:Provider Instructions for Treatment Patient Instructions Indication:Hypertension, benign Start:27-Oct-2013 Instruction Type:Provider Instructions for Treatment Patient Instructions Indication:Hypertension, benign Start:03-Jul-2013 Instruction Type:Provider Instructions for Treatment Patient Instructions Indication:Hypoalbuminemia Start:29-Mar-2013 Instruction Type:Provider Instructions for Treatment [facility]; [facility] Work Phone: Instructions* Name Dates Details Patient Instructions Indication:Hypokalemia (Renamed from Decreased potassium in the blood) Start:31-Dec-2021 Instruction Type:Provider Instructions for Treatment How to Access Health Informa tion Online using Patient Portal and [employer] Apps Indication:Hypokalemia (Renamed from Decreased potassium in the blood) Start:31-Dec-2021 Instruction Type:Patient Education Patient Instructions Indication:Hypertension, benign Start:16-Dec-2021 Instruction Type:Provider Instructions for Treatment Patient Instructions Indication:Hypertension, benign Start:04-Jul-2021 Instruction Type:Provider Instructions for Treatment How to Access Health Informa tion Online using Patient Portal and [employer] Apps Indication:Hypertension, benign Start:04-Jul-2021 Instruction Type:Patient Education Patient Instructions Indication:Nonsmoker Start:13-May-2021 Instruction Type:Provider Instructions for Treatment How to Access Health Informa tion Online using Patient Portal and [employer] Apps Indication:Nonsmoker Start:13-May-2021 Instruction Type:Patient Education How to Access Health Informa tion Online using Patient Portal and [employer] Apps Indication:Nonsmoker Start:04-Apr-2021 Instruction Type:Patient Education Patient Instructions Indication:Nonsmoker Start:04-Apr-2021 Instruction Type:Provider Instructions for Treatment Patient Instructions Indication:BMI 30.0-30.9,adult Start:21-Mar-2021 Instruction Type:Provider Instructions for Treatment How to Access Health Informa tion Online using Patient Portal and [employer] Apps Indication:BMI 30.0-30.9,adult Start:21-Mar-2021 Instruction Type:Patient Education How to access health informa tion online Indication:Nonsmoker Start:28-May-2020 Instruction Type:Patient Education How to access health informa tion online - Detail Indication:Nonsmoker Start:28-May-2020 Instruction Type:Patient Education Patient Instructions Indication:Nonsmoker Start:28-May-2020 Instruction Type:Provider Instructions for Treatment How to access health informa tion online Indication:Nonsmoker Start:05-Mar-2020 Instruction Type:Patient Education How to access health informa tion online - Detail Indication:Nonsmoker Start:05-Mar-2020 Instruction Type:Patient Education Patient Instructions Indication:Nonsmoker Start:05-Mar-2020 Instruction Type:Provider Instructions for Treatment How to access health informa tion online Indication:Nonsmoker Start:05-Jun-2019 Instruction Type:Patient Education How to access health informa tion online - Detail Indication:Nonsmoker Start:05-Jun-2019 Instruction Type:Patient Education Patient Instructions Indication:Nonsmoker Start:05-Jun-2019 Instruction Type:Provider Instructions for Treatment How to access health informa tion online Indication:Nonsmoker Start:24-Feb-2019 Instruction Type:Patient Education How to access health informa tion online - Detail Indication:Nonsmoker Start:24-Feb-2019 Instruction Type:Patient Education Patient Instructions Indication:BMI 30.0-30.9,adult Start:24-Feb-2019 Instruction Type:Provider Instructions for Treatment How to access health informa tion online Indication:BMI 30.0-30.9,adult Start:06-May-2018 Instruction Type:Patient Education How to access health informa tion online - Detail Indication:BMI 30.0-30.9,adult Start:06-May-2018 Instruction Type:Patient Education Patient Instructions Indication:Nonsmoker Start:06-May-2018 Instruction Type:Provider Instructions for Treatment How to access health informa tion online Indication:Nonsmoker Start:15-Apr-2018 Instruction Type:Patient Education How to access health informa tion online - Detail Indication:Nonsmoker Start:15-Apr-2018 Instruction Type:Patient Education Patient Instructions Indication:Nonsmoker Start:15-Apr-2018 Instruction Type:Provider Instructions for Treatment Patient Instructions Indication:BMI 29.0-29.9,adult Start:03-Feb-2018 Instruction Type:Provider Instructions for Treatment How to access health informa tion online Indication:Encounter for gynecological examination without abnormal finding Start:03-Feb-2018 Instruction Type:Patient Education How to access health informa tion online - Detail Indication:Encounter for gynecological examination without abnormal finding Start:03-Feb-2018 Instruction Type:Patient Education Patient Instructions Indication:Encounter for gynecological examination without abnormal finding Start:03-Feb-2018 Instruction Type:Provider Instructions for Treatment How to access health informa tion online Indication:Hypertension, benign Start:21-Jan-2018 Instruction Type:Patient Education How to access health informa tion online - Detail Indication:Hypertension, benign Start:21-Jan-2018 Instruction Type:Patient Education Patient Instructions Indication:Hypertension, benign Start:21-Jan-2018 Instruction Type:Provider Instructions for Treatment DISCONTINUED - Vitamin D Hyd annmarie ([id number]) Indication:Vitamin D deficiency Start:01-Mar-2017 Instruction Type:Patient Education DISCONTINUED - METABOLIC CAREY EL, COMPREHENSIVE ([id number]) Indication:Hypertension, benign Start:01-Mar-2017 Instruction Type:Patient Education How to access health informa tion online Indication:UTI symptoms Start:01-Mar-2017 Instruction Type:Patient Education How to access health informa tion online - Detail Indication:UTI symptoms Start:01-Mar-2017 Instruction Type:Patient Education Patient Instructions Indication:UTI symptoms Start:01-Mar-2017 Instruction Type:Provider Instructions for Treatment How to access health informa tion online Indication:Neck pain on left side Start:08-Dec-2016 Instruction Type:Patient Education How to access health informa tion online - Detail Indication:Neck pain on left side Start:08-Dec-2016 Instruction Type:Patient Education Patient Instructions Indication:Neck pain on left side Start:08-Dec-2016 Instruction Type:Provider Instructions for Treatment How to access health informa tion online Indication:Encounter for pre-employment examination Start:06-Mar-2015 Instruction Type:Patient Education How to access health informa tion online - Detail Indication:Encounter for pre-employment examination Start:06-Mar-2015 Instruction Type:Patient Education Patient Instructions Indication:Encounter for pre-employment examination Start:06-Mar-2015 Instruction Type:Provider Instructions for Treatment Patient Instructions Indication:Other abnormal finding of urine Start:30-Mar-2014 Instruction Type:Provider Instructions for Treatment How to access health informa tion online Indication:Hypertension, benign Start:02-Feb-2014 Instruction Type:Patient Education How to access health informa tion online - Detail Indication:Hypertension, benign Start:02-Feb-2014 Instruction Type:Patient Education Patient Instructions Indication:Hypertension, benign Start:02-Feb-2014 Instruction Type:Provider Instructions for Treatment Patient Instructions Indication:Hypertension, benign Start:27-Oct-2013 Instruction Type:Provider Instructions for Treatment Patient Instructions Indication:Hypertension, benign Start:03-Jul-2013 Instruction Type:Provider Instructions for Treatment Patient Instructions Indication:Hypoalbuminemia Start:29-Mar-2013 Instruction Type:Provider Instructions for Treatment [facility] Work Phone: Instructions* Name Dates Details Patient Instructions Indication:BMI 30.0-30.9,adult Start:23-Jan-2022 Instruction Type:Provider Instructions for Treatment How to Access Health Informa tion Online using Patient Portal and [employer]rd [employer] Apps Indication:BMI 30.0-30.9,adult Start:23-Jan-2022 Instruction Type:Patient Education Patient Instructions Indication:Hypokalemia (Renamed from Decreased potassium in the blood) Start:31-Dec-2021 Instruction Type:Provider Instructions for Treatment How to Access Health Informa tion Online using Patient Portal and [employer]rd [employer] Apps Indication:Hypokalemia (Renamed from Decreased potassium in the blood) Start:31-Dec-2021 Instruction Type:Patient Education Patient Instructions Indication:Hypertension, benign Start:16-Dec-2021 Instruction Type:Provider Instructions for Treatment Patient Instructions Indication:Hypertension, benign Start:04-Jul-2021 Instruction Type:Provider Instructions for Treatment How to Access Health Informa tion Online using Patient Portal and [employer]rd [employer] Apps Indication:Hypertension, benign Start:04-Jul-2021 Instruction Type:Patient Education Patient Instructions Indication:Nonsmoker Start:13-May-2021 Instruction Type:Provider Instructions for Treatment How to Access Health Informa tion Online using Patient Portal and [employer]rd [employer] Apps Indication:Nonsmoker Start:13-May-2021 Instruction Type:Patient Education How to Access Health Informa tion Online using Patient Portal and [employer]rd [employer] Apps Indication:Nonsmoker Start:04-Apr-2021 Instruction Type:Patient Education Patient Instructions Indication:Nonsmoker Start:04-Apr-2021 Instruction Type:Provider Instructions for Treatment Patient Instructions Indication:BMI 30.0-30.9,adult Start:21-Mar-2021 Instruction Type:Provider Instructions for Treatment How to Access Health Informa tion Online using Patient Portal and [employer]rd [employer] Apps Indication:BMI 30.0-30.9,adult Start:21-Mar-2021 Instruction Type:Patient Education How to access health informa tion online Indication:Nonsmoker Start:28-May-2020 Instruction Type:Patient Education How to access health informa tion online - Detail Indication:Nonsmoker Start:28-May-2020 Instruction Type:Patient Education Patient Instructions Indication:Nonsmoker Start:28-May-2020 Instruction Type:Provider Instructions for Treatment How to access health informa tion online Indication:Nonsmoker Start:05-Mar-2020 Instruction Type:Patient Education How to access health informa tion online - Detail Indication:Nonsmoker Start:05-Mar-2020 Instruction Type:Patient Education Patient Instructions Indication:Nonsmoker Start:05-Mar-2020 Instruction Type:Provider Instructions for Treatment How to access health informa tion online Indication:Nonsmoker Start:05-Jun-2019 Instruction Type:Patient Education How to access health informa tion online - Detail Indication:Nonsmoker Start:05-Jun-2019 Instruction Type:Patient Education Patient Instructions Indication:Nonsmoker Start:05-Jun-2019 Instruction Type:Provider Instructions for Treatment How to access health informa tion online Indication:Nonsmoker Start:24-Feb-2019 Instruction Type:Patient Education How to access health informa tion online - Detail Indication:Nonsmoker Start:24-Feb-2019 Instruction Type:Patient Education Patient Instructions Indication:BMI 30.0-30.9,adult Start:24-Feb-2019 Instruction Type:Provider Instructions for Treatment How to access health informa tion online Indication:BMI 30.0-30.9,adult Start:06-May-2018 Instruction Type:Patient Education How to access health informa tion online - Detail Indication:BMI 30.0-30.9,adult Start:06-May-2018 Instruction Type:Patient Education Patient Instructions Indication:Nonsmoker Start:06-May-2018 Instruction Type:Provider Instructions for Treatment How to access health informa tion online Indication:Nonsmoker Start:15-Apr-2018 Instruction Type:Patient Education How to access health informa tion online - Detail Indication:Nonsmoker Start:15-Apr-2018 Instruction Type:Patient Education Patient Instructions Indication:Nonsmoker Start:15-Apr-2018 Instruction Type:Provider Instructions for Treatment Patient Instructions Indication:BMI 29.0-29.9,adult Start:03-Feb-2018 Instruction Type:Provider Instructions for Treatment How to access health informa tion online Indication:Encounter for gynecological examination without abnormal finding Start:03-Feb-2018 Instruction Type:Patient Education How to access health informa tion online - Detail Indication:Encounter for gynecological examination without abnormal finding Start:03-Feb-2018 Instruction Type:Patient Education Patient Instructions Indication:Encounter for gynecological examination without abnormal finding Start:03-Feb-2018 Instruction Type:Provider Instructions for Treatment How to access health informa tion online Indication:Hypertension, benign Start:21-Jan-2018 Instruction Type:Patient Education How to access health informa tion online - Detail Indication:Hypertension, benign Start:21-Jan-2018 Instruction Type:Patient Education Patient Instructions Indication:Hypertension, benign Start:21-Jan-2018 Instruction Type:Provider Instructions for Treatment DISCONTINUED - Vitamin D Hyd annmarie (56203) Indication:Vitamin D deficiency Start:01-Mar-2017 Instruction Type:Patient Education DISCONTINUED - METABOLIC CAREY EL, COMPREHENSIVE (08033) Indication:Hypertension, benign Start:01-Mar-2017 Instruction Type:Patient Education How to access health informa tion online Indication:UTI symptoms Start:01-Mar-2017 Instruction Type:Patient Education How to access health informa tion online - Detail Indication:UTI symptoms Start:01-Mar-2017 Instruction Type:Patient Education Patient Instructions Indication:UTI symptoms Start:01-Mar-2017 Instruction Type:Provider Instructions for Treatment How to access health informa tion online Indication:Neck pain on left side Start:08-Dec-2016 Instruction Type:Patient Education How to access health informa tion online - Detail Indication:Neck pain on left side Start:08-Dec-2016 Instruction Type:Patient Education Patient Instructions Indication:Neck pain on left side Start:08-Dec-2016 Instruction Type:Provider Instructions for Treatment How to access health informa tion online Indication:Encounter for pre-employment examination Start:06-Mar-2015 Instruction Type:Patient Education How to access health informa tion online - Detail Indication:Encounter for pre-employment examination Start:06-Mar-2015 Instruction Type:Patient Education Patient Instructions Indication:Encounter for pre-employment examination Start:06-Mar-2015 Instruction Type:Provider Instructions for Treatment Patient Instructions Indication:Other abnormal finding of urine Start:30-Mar-2014 Instruction Type:Provider Instructions for Treatment How to access health informa tion online Indication:Hypertension, benign Start:02-Feb-2014 Instruction Type:Patient Education How to access health informa tion online - Detail Indication:Hypertension, benign Start:02-Feb-2014 Instruction Type:Patient Education Patient Instructions Indication:Hypertension, benign Start:02-Feb-2014 Instruction Type:Provider Instructions for Treatment Patient Instructions Indication:Hypertension, benign Start:27-Oct-2013 Instruction Type:Provider Instructions for Treatment Patient Instructions Indication:Hypertension, benign Start:03-Jul-2013 Instruction Type:Provider Instructions for Treatment Patient Instructions Indication:Hypoalbuminemia Start:29-Mar-2013 Instruction Type:Provider Instructions for Treatment [facility] Work Phone: Instructions* Name Dates Details Patient Instructions Indication:BMI 30.0-30.9,adult Start:23-Jan-2022 Instruction Type:Provider Instructions for Treatment How to Access Health Informa tion Online using Patient Portal and [employer] Apps Indication:BMI 30.0-30.9,adult Start:23-Jan-2022 Instruction Type:Patient Education Patient Instructions Indication:Hypokalemia (Renamed from Decreased potassium in the blood) Start:31-Dec-2021 Instruction Type:Provider Instructions for Treatment How to Access Health Informa tion Online using Patient Portal and [employer] Apps Indication:Hypokalemia (Renamed from Decreased potassium in the blood) Start:31-Dec-2021 Instruction Type:Patient Education Patient Instructions Indication:Hypertension, benign Start:16-Dec-2021 Instruction Type:Provider Instructions for Treatment Patient Instructions Indication:Hypertension, benign Start:04-Jul-2021 Instruction Type:Provider Instructions for Treatment How to Access Health Informa tion Online using Patient Portal and [employer] Apps Indication:Hypertension, benign Start:04-Jul-2021 Instruction Type:Patient Education Patient Instructions Indication:Nonsmoker Start:13-May-2021 Instruction Type:Provider Instructions for Treatment How to Access Health Informa tion Online using Patient Portal and [employer] Apps Indication:Nonsmoker Start:13-May-2021 Instruction Type:Patient Education How to Access Health Informa tion Online using Patient Portal and [employer] Apps Indication:Nonsmoker Start:04-Apr-2021 Instruction Type:Patient Education Patient Instructions Indication:Nonsmoker Start:04-Apr-2021 Instruction Type:Provider Instructions for Treatment Patient Instructions Indication:BMI 30.0-30.9,adult Start:21-Mar-2021 Instruction Type:Provider Instructions for Treatment How to Access Health Informa tion Online using Patient Portal and [employer]rd [employer] Apps Indication:BMI 30.0-30.9,adult Start:21-Mar-2021 Instruction Type:Patient Education How to access health informa tion online Indication:Nonsmoker Start:28-May-2020 Instruction Type:Patient Education How to access health informa tion online - Detail Indication:Nonsmoker Start:28-May-2020 Instruction Type:Patient Education Patient Instructions Indication:Nonsmoker Start:28-May-2020 Instruction Type:Provider Instructions for Treatment How to access health informa tion online Indication:Nonsmoker Start:05-Mar-2020 Instruction Type:Patient Education How to access health informa tion online - Detail Indication:Nonsmoker Start:05-Mar-2020 Instruction Type:Patient Education Patient Instructions Indication:Nonsmoker Start:05-Mar-2020 Instruction Type:Provider Instructions for Treatment How to access health informa tion online Indication:Nonsmoker Start:05-Jun-2019 Instruction Type:Patient Education How to access health informa tion online - Detail Indication:Nonsmoker Start:05-Jun-2019 Instruction Type:Patient Education Patient Instructions Indication:Nonsmoker Start:05-Jun-2019 Instruction Type:Provider Instructions for Treatment How to access health informa tion online Indication:Nonsmoker Start:24-Feb-2019 Instruction Type:Patient Education How to access health informa tion online - Detail Indication:Nonsmoker Start:24-Feb-2019 Instruction Type:Patient Education Patient Instructions Indication:BMI 30.0-30.9,adult Start:24-Feb-2019 Instruction Type:Provider Instructions for Treatment How to access health informa tion online Indication:BMI 30.0-30.9,adult Start:06-May-2018 Instruction Type:Patient Education How to access health informa tion online - Detail Indication:BMI 30.0-30.9,adult Start:06-May-2018 Instruction Type:Patient Education Patient Instructions Indication:Nonsmoker Start:06-May-2018 Instruction Type:Provider Instructions for Treatment How to access health informa tion online Indication:Nonsmoker Start:15-Apr-2018 Instruction Type:Patient Education How to access health informa tion online - Detail Indication:Nonsmoker Start:15-Apr-2018 Instruction Type:Patient Education Patient Instructions Indication:Nonsmoker Start:15-Apr-2018 Instruction Type:Provider Instructions for Treatment Patient Instructions Indication:BMI 29.0-29.9,adult Start:03-Feb-2018 Instruction Type:Provider Instructions for Treatment How to access health informa tion online Indication:Encounter for gynecological examination without abnormal finding Start:03-Feb-2018 Instruction Type:Patient Education How to access health informa tion online - Detail Indication:Encounter for gynecological examination without abnormal finding Start:03-Feb-2018 Instruction Type:Patient Education Patient Instructions Indication:Encounter for gynecological examination without abnormal finding Start:03-Feb-2018 Instruction Type:Provider Instructions for Treatment How to access health informa tion online Indication:Hypertension, benign Start:21-Jan-2018 Instruction Type:Patient Education How to access health informa tion online - Detail Indication:Hypertension, benign Start:21-Jan-2018 Instruction Type:Patient Education Patient Instructions Indication:Hypertension, benign Start:21-Jan-2018 Instruction Type:Provider Instructions for Treatment DISCONTINUED - Vitamin D Hyd annmarie (80546) Indication:Vitamin D deficiency Start:01-Mar-2017 Instruction Type:Patient Education DISCONTINUED - METABOLIC CAREY EL, COMPREHENSIVE ([id number]) Indication:Hypertension, benign Start:01-Mar-2017 Instruction Type:Patient Education How to access health informa tion online Indication:UTI symptoms Start:01-Mar-2017 Instruction Type:Patient Education How to access health informa tion online - Detail Indication:UTI symptoms Start:01-Mar-2017 Instruction Type:Patient Education Patient Instructions Indication:UTI symptoms Start:01-Mar-2017 Instruction Type:Provider Instructions for Treatment How to access health informa tion online Indication:Neck pain on left side Start:08-Dec-2016 Instruction Type:Patient Education How to access health informa tion online - Detail Indication:Neck pain on left side Start:08-Dec-2016 Instruction Type:Patient Education Patient Instructions Indication:Neck pain on left side Start:08-Dec-2016 Instruction Type:Provider Instructions for Treatment How to access health informa tion online Indication:Encounter for pre-employment examination Start:06-Mar-2015 Instruction Type:Patient Education How to access health informa tion online - Detail Indication:Encounter for pre-employment examination Start:06-Mar-2015 Instruction Type:Patient Education Patient Instructions Indication:Encounter for pre-employment examination Start:06-Mar-2015 Instruction Type:Provider Instructions for Treatment Patient Instructions Indication:Other abnormal finding of urine Start:30-Mar-2014 Instruction Type:Provider Instructions for Treatment How to access health informa tion online Indication:Hypertension, benign Start:02-Feb-2014 Instruction Type:Patient Education How to access health informa tion online - Detail Indication:Hypertension, benign Start:02-Feb-2014 Instruction Type:Patient Education Patient Instructions Indication:Hypertension, benign Start:02-Feb-2014 Instruction Type:Provider Instructions for Treatment Patient Instructions Indication:Hypertension, benign Start:27-Oct-2013 Instruction Type:Provider Instructions for Treatment Patient Instructions Indication:Hypertension, benign Start:03-Jul-2013 Instruction Type:Provider Instructions for Treatment Patient Instructions Indication:Hypoalbuminemia Start:29-Mar-2013 Instruction Type:Provider Instructions for Treatment [facility] Work Phone: Instructions* Name Dates Details Patient Instructions Indication:BMI 29.0-29.9,adult Start:20-Feb-2022 Instruction Type:Provider Instructions for Treatment How to Access Health Informa tion Online using Patient Portal and [employer]rd [employer] Apps Indication:BMI 29.0-29.9,adult Start:20-Feb-2022 Instruction Type:Patient Education Patient Instructions Indication:BMI 30.0-30.9,adult Start:23-Jan-2022 Instruction Type:Provider Instructions for Treatment How to Access Health Informa tion Online using Patient Portal and [employer]rd [employer] Apps Indication:BMI 30.0-30.9,adult Start:23-Jan-2022 Instruction Type:Patient Education Patient Instructions Indication:Hypokalemia (Renamed from Decreased potassium in the blood) Start:31-Dec-2021 Instruction Type:Provider Instructions for Treatment How to Access Health Informa tion Online using Patient Portal and [employer] Apps Indication:Hypokalemia (Renamed from Decreased potassium in the blood) Start:31-Dec-2021 Instruction Type:Patient Education Patient Instructions Indication:Hypertension, benign Start:16-Dec-2021 Instruction Type:Provider Instructions for Treatment Patient Instructions Indication:Hypertension, benign Start:04-Jul-2021 Instruction Type:Provider Instructions for Treatment How to Access Health Informa tion Online using Patient Portal and [employer] Apps Indication:Hypertension, benign Start:04-Jul-2021 Instruction Type:Patient Education Patient Instructions Indication:Nonsmoker Start:13-May-2021 Instruction Type:Provider Instructions for Treatment How to Access Health Informa tion Online using Patient Portal and [employer] Apps Indication:Nonsmoker Start:13-May-2021 Instruction Type:Patient Education How to Access Health Informa tion Online using Patient Portal and [employer] Apps Indication:Nonsmoker Start:04-Apr-2021 Instruction Type:Patient Education Patient Instructions Indication:Nonsmoker Start:04-Apr-2021 Instruction Type:Provider Instructions for Treatment Patient Instructions Indication:BMI 30.0-30.9,adult Start:21-Mar-2021 Instruction Type:Provider Instructions for Treatment How to Access Health Informa tion Online using Patient Portal and [employer] Apps Indication:BMI 30.0-30.9,adult Start:21-Mar-2021 Instruction Type:Patient Education How to access health informa tion online Indication:Nonsmoker Start:28-May-2020 Instruction Type:Patient Education How to access health informa tion online - Detail Indication:Nonsmoker Start:28-May-2020 Instruction Type:Patient Education Patient Instructions Indication:Nonsmoker Start:28-May-2020 Instruction Type:Provider Instructions for Treatment How to access health informa tion online Indication:Nonsmoker Start:05-Mar-2020 Instruction Type:Patient Education How to access health informa tion online - Detail Indication:Nonsmoker Start:05-Mar-2020 Instruction Type:Patient Education Patient Instructions Indication:Nonsmoker Start:05-Mar-2020 Instruction Type:Provider Instructions for Treatment How to access health informa tion online Indication:Nonsmoker Start:05-Jun-2019 Instruction Type:Patient Education How to access health informa tion online - Detail Indication:Nonsmoker Start:05-Jun-2019 Instruction Type:Patient Education Patient Instructions Indication:Nonsmoker Start:05-Jun-2019 Instruction Type:Provider Instructions for Treatment How to access health informa tion online Indication:Nonsmoker Start:24-Feb-2019 Instruction Type:Patient Education How to access health informa tion online - Detail Indication:Nonsmoker Start:24-Feb-2019 Instruction Type:Patient Education Patient Instructions Indication:BMI 30.0-30.9,adult Start:24-Feb-2019 Instruction Type:Provider Instructions for Treatment How to access health informa tion online Indication:BMI 30.0-30.9,adult Start:06-May-2018 Instruction Type:Patient Education How to access health informa tion online - Detail Indication:BMI 30.0-30.9,adult Start:06-May-2018 Instruction Type:Patient Education Patient Instructions Indication:Nonsmoker Start:06-May-2018 Instruction Type:Provider Instructions for Treatment How to access health informa tion online Indication:Nonsmoker Start:15-Apr-2018 Instruction Type:Patient Education How to access health informa tion online - Detail Indication:Nonsmoker Start:15-Apr-2018 Instruction Type:Patient Education Patient Instructions Indication:Nonsmoker Start:15-Apr-2018 Instruction Type:Provider Instructions for Treatment Patient Instructions Indication:BMI 29.0-29.9,adult Start:03-Feb-2018 Instruction Type:Provider Instructions for Treatment How to access health informa tion online Indication:Encounter for gynecological examination without abnormal finding Start:03-Feb-2018 Instruction Type:Patient Education How to access health informa tion online - Detail Indication:Encounter for gynecological examination without abnormal finding Start:03-Feb-2018 Instruction Type:Patient Education Patient Instructions Indication:Encounter for gynecological examination without abnormal finding Start:03-Feb-2018 Instruction Type:Provider Instructions for Treatment How to access health informa tion online Indication:Hypertension, benign Start:21-Jan-2018 Instruction Type:Patient Education How to access health informa tion online - Detail Indication:Hypertension, benign Start:21-Jan-2018 Instruction Type:Patient Education Patient Instructions Indication:Hypertension, benign Start:21-Jan-2018 Instruction Type:Provider Instructions for Treatment DISCONTINUED - Vitamin D Hyd annmarie (97892) Indication:Vitamin D deficiency Start:01-Mar-2017 Instruction Type:Patient Education DISCONTINUED - METABOLIC CAREY EL, COMPREHENSIVE ([id number]) Indication:Hypertension, benign Start:01-Mar-2017 Instruction Type:Patient Education How to access health informa tion online Indication:UTI symptoms Start:01-Mar-2017 Instruction Type:Patient Education How to access health informa tion online - Detail Indication:UTI symptoms Start:01-Mar-2017 Instruction Type:Patient Education Patient Instructions Indication:UTI symptoms Start:01-Mar-2017 Instruction Type:Provider Instructions for Treatment How to access health informa tion online Indication:Neck pain on left side Start:08-Dec-2016 Instruction Type:Patient Education How to access health informa tion online - Detail Indication:Neck pain on left side Start:08-Dec-2016 Instruction Type:Patient Education Patient Instructions Indication:Neck pain on left side Start:08-Dec-2016 Instruction Type:Provider Instructions for Treatment How to access health informa tion online Indication:Encounter for pre-employment examination Start:06-Mar-2015 Instruction Type:Patient Education How to access health informa tion online - Detail Indication:Encounter for pre-employment examination Start:06-Mar-2015 Instruction Type:Patient Education Patient Instructions Indication:Encounter for pre-employment examination Start:06-Mar-2015 Instruction Type:Provider Instructions for Treatment Patient Instructions Indication:Other abnormal finding of urine Start:30-Mar-2014 Instruction Type:Provider Instructions for Treatment How to access health informa tion online Indication:Hypertension, benign Start:02-Feb-2014 Instruction Type:Patient Education How to access health informa tion online - Detail Indication:Hypertension, benign Start:02-Feb-2014 Instruction Type:Patient Education Patient Instructions Indication:Hypertension, benign Start:02-Feb-2014 Instruction Type:Provider Instructions for Treatment Patient Instructions Indication:Hypertension, benign Start:27-Oct-2013 Instruction Type:Provider Instructions for Treatment Patient Instructions Indication:Hypertension, benign Start:03-Jul-2013 Instruction Type:Provider Instructions for Treatment Patient Instructions Indication:Hypoalbuminemia Start:29-Mar-2013 Instruction Type:Provider Instructions for Treatment [facility] Work Phone: Instructions* Name Dates Details Patient Instructions Indication:BMI 29.0-29.9,adult Start:20-Feb-2022 Instruction Type:Provider Instructions for Treatment How to Access Health Informa tion Online using Patient Portal and [employer] Indication:BMI 29.0-29.9,adult Start:20-Feb-2022 Instruction Type:Patient Education Patient Instructions Indication:BMI 30.0-30.9,adult Start:23-Jan-2022 Instruction Type:Provider Instructions for Treatment How to Access Health Informa tion Online using Patient Portal and [employer] Indication:BMI 30.0-30.9,adult Start:23-Jan-2022 Instruction Type:Patient Education Patient Instructions Indication:Hypokalemia (Renamed from Decreased potassium in the blood) Start:31-Dec-2021 Instruction Type:Provider Instructions for Treatment How to Access Health Informa tion Online using Patient Portal and [employer] Indication:Hypokalemia (Renamed from Decreased potassium in the blood) Start:31-Dec-2021 Instruction Type:Patient Education Patient Instructions Indication:Hypertension, benign Start:16-Dec-2021 Instruction Type:Provider Instructions for Treatment Patient Instructions Indication:Hypertension, benign Start:04-Jul-2021 Instruction Type:Provider Instructions for Treatment How to Access Health Informa tion Online using Patient Portal and [employer] Apps Indication:Hypertension, benign Start:04-Jul-2021 Instruction Type:Patient Education Patient Instructions Indication:Nonsmoker Start:13-May-2021 Instruction Type:Provider Instructions for Treatment How to Access Health Informa tion Online using Patient Portal and [employer] Apps Indication:Nonsmoker Start:13-May-2021 Instruction Type:Patient Education How to Access Health Informa tion Online using Patient Portal and [employer] Indication:Nonsmoker Start:04-Apr-2021 Instruction Type:Patient Education Patient Instructions Indication:Nonsmoker Start:04-Apr-2021 Instruction Type:Provider Instructions for Treatment Patient Instructions Indication:BMI 30.0-30.9,adult Start:21-Mar-2021 Instruction Type:Provider Instructions for Treatment How to Access Health Informa tion Online using Patient Portal and [employer] Apps Indication:BMI 30.0-30.9,adult Start:21-Mar-2021 Instruction Type:Patient Education How to access health informa tion online Indication:Nonsmoker Start:28-May-2020 Instruction Type:Patient Education How to access health informa tion online - Detail Indication:Nonsmoker Start:28-May-2020 Instruction Type:Patient Education Patient Instructions Indication:Nonsmoker Start:28-May-2020 Instruction Type:Provider Instructions for Treatment How to access health informa tion online Indication:Nonsmoker Start:05-Mar-2020 Instruction Type:Patient Education How to access health informa tion online - Detail Indication:Nonsmoker Start:05-Mar-2020 Instruction Type:Patient Education Patient Instructions Indication:Nonsmoker Start:05-Mar-2020 Instruction Type:Provider Instructions for Treatment How to access health informa tion online Indication:Nonsmoker Start:05-Jun-2019 Instruction Type:Patient Education How to access health informa tion online - Detail Indication:Nonsmoker Start:05-Jun-2019 Instruction Type:Patient Education Patient Instructions Indication:Nonsmoker Start:05-Jun-2019 Instruction Type:Provider Instructions for Treatment How to access health informa tion online Indication:Nonsmoker Start:24-Feb-2019 Instruction Type:Patient Education How to access health informa tion online - Detail Indication:Nonsmoker Start:24-Feb-2019 Instruction Type:Patient Education Patient Instructions Indication:BMI 30.0-30.9,adult Start:24-Feb-2019 Instruction Type:Provider Instructions for Treatment How to access health informa tion online Indication:BMI 30.0-30.9,adult Start:06-May-2018 Instruction Type:Patient Education How to access health informa tion online - Detail Indication:BMI 30.0-30.9,adult Start:06-May-2018 Instruction Type:Patient Education Patient Instructions Indication:Nonsmoker Start:06-May-2018 Instruction Type:Provider Instructions for Treatment How to access health informa tion online Indication:Nonsmoker Start:15-Apr-2018 Instruction Type:Patient Education How to access health informa tion online - Detail Indication:Nonsmoker Start:15-Apr-2018 Instruction Type:Patient Education Patient Instructions Indication:Nonsmoker Start:15-Apr-2018 Instruction Type:Provider Instructions for Treatment Patient Instructions Indication:BMI 29.0-29.9,adult Start:03-Feb-2018 Instruction Type:Provider Instructions for Treatment How to access health informa tion online Indication:Encounter for gynecological examination without abnormal finding Start:03-Feb-2018 Instruction Type:Patient Education How to access health informa tion online - Detail Indication:Encounter for gynecological examination without abnormal finding Start:03-Feb-2018 Instruction Type:Patient Education Patient Instructions Indication:Encounter for gynecological examination without abnormal finding Start:03-Feb-2018 Instruction Type:Provider Instructions for Treatment How to access health informa tion online Indication:Hypertension, benign Start:21-Jan-2018 Instruction Type:Patient Education How to access health informa tion online - Detail Indication:Hypertension, benign Start:21-Jan-2018 Instruction Type:Patient Education Patient Instructions Indication:Hypertension, benign Start:21-Jan-2018 Instruction Type:Provider Instructions for Treatment DISCONTINUED - Vitamin D Hyd annmarie (30615) Indication:Vitamin D deficiency Start:01-Mar-2017 Instruction Type:Patient Education DISCONTINUED - METABOLIC CAREY EL, COMPREHENSIVE ([id number]) Indication:Hypertension, benign Start:01-Mar-2017 Instruction Type:Patient Education How to access health informa tion online Indication:UTI symptoms Start:01-Mar-2017 Instruction Type:Patient Education How to access health informa tion online - Detail Indication:UTI symptoms Start:01-Mar-2017 Instruction Type:Patient Education Patient Instructions Indication:UTI symptoms Start:01-Mar-2017 Instruction Type:Provider Instructions for Treatment How to access health informa tion online Indication:Neck pain on left side Start:08-Dec-2016 Instruction Type:Patient Education How to access health informa tion online - Detail Indication:Neck pain on left side Start:08-Dec-2016 Instruction Type:Patient Education Patient Instructions Indication:Neck pain on left side Start:08-Dec-2016 Instruction Type:Provider Instructions for Treatment How to access health informa tion online Indication:Encounter for pre-employment examination Start:06-Mar-2015 Instruction Type:Patient Education How to access health informa tion online - Detail Indication:Encounter for pre-employment examination Start:06-Mar-2015 Instruction Type:Patient Education Patient Instructions Indication:Encounter for pre-employment examination Start:06-Mar-2015 Instruction Type:Provider Instructions for Treatment Patient Instructions Indication:Other abnormal finding of urine Start:30-Mar-2014 Instruction Type:Provider Instructions for Treatment How to access health informa tion online Indication:Hypertension, benign Start:02-Feb-2014 Instruction Type:Patient Education How to access health informa tion online - Detail Indication:Hypertension, benign Start:02-Feb-2014 Instruction Type:Patient Education Patient Instructions Indication:Hypertension, benign Start:02-Feb-2014 Instruction Type:Provider Instructions for Treatment Patient Instructions Indication:Hypertension, benign Start:27-Oct-2013 Instruction Type:Provider Instructions for Treatment Patient Instructions Indication:Hypertension, benign Start:03-Jul-2013 Instruction Type:Provider Instructions for Treatment Patient Instructions Indication:Hypoalbuminemia Start:29-Mar-2013 Instruction Type:Provider Instructions for Treatment [facility] Work Phone: Instructions* Name Dates Details Patient Instructions Indication:BMI 29.0-29.9,adult Start:20-Feb-2022 Instruction Type:Provider Instructions for Treatment How to Access Health Informa tion Online using Patient Portal and [employer] Apps Indication:BMI 29.0-29.9,adult Start:20-Feb-2022 Instruction Type:Patient Education Patient Instructions Indication:BMI 30.0-30.9,adult Start:23-Jan-2022 Instruction Type:Provider Instructions for Treatment How to Access Health Informa tion Online using Patient Portal and [employer] Indication:BMI 30.0-30.9,adult Start:23-Jan-2022 Instruction Type:Patient Education Patient Instructions Indication:Hypokalemia (Renamed from Decreased potassium in the blood) Start:31-Dec-2021 Instruction Type:Provider Instructions for Treatment How to Access Health Informa tion Online using Patient Portal and [employer] Indication:Hypokalemia (Renamed from Decreased potassium in the blood) Start:31-Dec-2021 Instruction Type:Patient Education Patient Instructions Indication:Hypertension, benign Start:16-Dec-2021 Instruction Type:Provider Instructions for Treatment Patient Instructions Indication:Hypertension, benign Start:04-Jul-2021 Instruction Type:Provider Instructions for Treatment How to Access Health Informa tion Online using Patient Portal and [employer] Apps Indication:Hypertension, benign Start:04-Jul-2021 Instruction Type:Patient Education Patient Instructions Indication:Nonsmoker Start:13-May-2021 Instruction Type:Provider Instructions for Treatment How to Access Health Informa tion Online using Patient Portal and [employer] Indication:Nonsmoker Start:13-May-2021 Instruction Type:Patient Education How to Access Health Informa tion Online using Patient Portal and [employer] Apps Indication:Nonsmoker Start:04-Apr-2021 Instruction Type:Patient Education Patient Instructions Indication:Nonsmoker Start:04-Apr-2021 Instruction Type:Provider Instructions for Treatment Patient Instructions Indication:BMI 30.0-30.9,adult Start:21-Mar-2021 Instruction Type:Provider Instructions for Treatment How to Access Health Informa tion Online using Patient Portal and [employer] Apps Indication:BMI 30.0-30.9,adult Start:21-Mar-2021 Instruction Type:Patient Education How to access health informa tion online Indication:Nonsmoker Start:28-May-2020 Instruction Type:Patient Education How to access health informa tion online - Detail Indication:Nonsmoker Start:28-May-2020 Instruction Type:Patient Education Patient Instructions Indication:Nonsmoker Start:28-May-2020 Instruction Type:Provider Instructions for Treatment How to access health informa tion online Indication:Nonsmoker Start:05-Mar-2020 Instruction Type:Patient Education How to access health informa tion online - Detail Indication:Nonsmoker Start:05-Mar-2020 Instruction Type:Patient Education Patient Instructions Indication:Nonsmoker Start:05-Mar-2020 Instruction Type:Provider Instructions for Treatment How to access health informa tion online Indication:Nonsmoker Start:05-Jun-2019 Instruction Type:Patient Education How to access health informa tion online - Detail Indication:Nonsmoker Start:05-Jun-2019 Instruction Type:Patient Education Patient Instructions Indication:Nonsmoker Start:05-Jun-2019 Instruction Type:Provider Instructions for Treatment How to access health informa tion online Indication:Nonsmoker Start:24-Feb-2019 Instruction Type:Patient Education How to access health informa tion online - Detail Indication:Nonsmoker Start:24-Feb-2019 Instruction Type:Patient Education Patient Instructions Indication:BMI 30.0-30.9,adult Start:24-Feb-2019 Instruction Type:Provider Instructions for Treatment How to access health informa tion online Indication:BMI 30.0-30.9,adult Start:06-May-2018 Instruction Type:Patient Education How to access health informa tion online - Detail Indication:BMI 30.0-30.9,adult Start:06-May-2018 Instruction Type:Patient Education Patient Instructions Indication:Nonsmoker Start:06-May-2018 Instruction Type:Provider Instructions for Treatment How to access health informa tion online Indication:Nonsmoker Start:15-Apr-2018 Instruction Type:Patient Education How to access health informa tion online - Detail Indication:Nonsmoker Start:15-Apr-2018 Instruction Type:Patient Education Patient Instructions Indication:Nonsmoker Start:15-Apr-2018 Instruction Type:Provider Instructions for Treatment Patient Instructions Indication:BMI 29.0-29.9,adult Start:03-Feb-2018 Instruction Type:Provider Instructions for Treatment How to access health informa tion online Indication:Encounter for gynecological examination without abnormal finding Start:03-Feb-2018 Instruction Type:Patient Education How to access health informa tion online - Detail Indication:Encounter for gynecological examination without abnormal finding Start:03-Feb-2018 Instruction Type:Patient Education Patient Instructions Indication:Encounter for gynecological examination without abnormal finding Start:03-Feb-2018 Instruction Type:Provider Instructions for Treatment How to access health informa tion online Indication:Hypertension, benign Start:21-Jan-2018 Instruction Type:Patient Education How to access health informa tion online - Detail Indication:Hypertension, benign Start:21-Jan-2018 Instruction Type:Patient Education Patient Instructions Indication:Hypertension, benign Start:21-Jan-2018 Instruction Type:Provider Instructions for Treatment DISCONTINUED - Vitamin D Hyd annmarie (69731) Indication:Vitamin D deficiency Start:01-Mar-2017 Instruction Type:Patient Education DISCONTINUED - METABOLIC CAREY EL, COMPREHENSIVE ([id number]) Indication:Hypertension, benign Start:01-Mar-2017 Instruction Type:Patient Education How to access health informa tion online Indication:UTI symptoms Start:01-Mar-2017 Instruction Type:Patient Education How to access health informa tion online - Detail Indication:UTI symptoms Start:01-Mar-2017 Instruction Type:Patient Education Patient Instructions Indication:UTI symptoms Start:01-Mar-2017 Instruction Type:Provider Instructions for Treatment How to access health informa tion online Indication:Neck pain on left side Start:08-Dec-2016 Instruction Type:Patient Education How to access health informa tion online - Detail Indication:Neck pain on left side Start:08-Dec-2016 Instruction Type:Patient Education Patient Instructions Indication:Neck pain on left side Start:08-Dec-2016 Instruction Type:Provider Instructions for Treatment How to access health informa tion online Indication:Encounter for pre-employment examination Start:06-Mar-2015 Instruction Type:Patient Education How to access health informa tion online - Detail Indication:Encounter for pre-employment examination Start:06-Mar-2015 Instruction Type:Patient Education Patient Instructions Indication:Encounter for pre-employment examination Start:06-Mar-2015 Instruction Type:Provider Instructions for Treatment Patient Instructions Indication:Other abnormal finding of urine Start:30-Mar-2014 Instruction Type:Provider Instructions for Treatment How to access health informa tion online Indication:Hypertension, benign Start:02-Feb-2014 Instruction Type:Patient Education How to access health informa tion online - Detail Indication:Hypertension, benign Start:02-Feb-2014 Instruction Type:Patient Education Patient Instructions Indication:Hypertension, benign Start:02-Feb-2014 Instruction Type:Provider Instructions for Treatment Patient Instructions Indication:Hypertension, benign Start:27-Oct-2013 Instruction Type:Provider Instructions for Treatment Patient Instructions Indication:Hypertension, benign Start:03-Jul-2013 Instruction Type:Provider Instructions for Treatment Patient Instructions Indication:Hypoalbuminemia Start:29-Mar-2013 Instruction Type:Provider Instructions for Treatment [facility] Work Phone: Instructions* Name Dates Details Patient Instructions Indication:BMI 29.0-29.9,adult Start:20-Feb-2022 Instruction Type:Provider Instructions for Treatment How to Access Health Informa tion Online using Patient Portal and [employer] Apps Indication:BMI 29.0-29.9,adult Start:20-Feb-2022 Instruction Type:Patient Education Patient Instructions Indication:BMI 30.0-30.9,adult Start:23-Jan-2022 Instruction Type:Provider Instructions for Treatment How to Access Health Informa tion Online using Patient Portal and [employer] Indication:BMI 30.0-30.9,adult Start:23-Jan-2022 Instruction Type:Patient Education Patient Instructions Indication:Hypokalemia (Renamed from Decreased potassium in the blood) Start:31-Dec-2021 Instruction Type:Provider Instructions for Treatment How to Access Health Informa tion Online using Patient Portal and [employer] Indication:Hypokalemia (Renamed from Decreased potassium in the blood) Start:31-Dec-2021 Instruction Type:Patient Education Patient Instructions Indication:Hypertension, benign Start:16-Dec-2021 Instruction Type:Provider Instructions for Treatment Patient Instructions Indication:Hypertension, benign Start:04-Jul-2021 Instruction Type:Provider Instructions for Treatment How to Access Health Informa tion Online using Patient Portal and [employer] Indication:Hypertension, benign Start:04-Jul-2021 Instruction Type:Patient Education Patient Instructions Indication:Nonsmoker Start:13-May-2021 Instruction Type:Provider Instructions for Treatment How to Access Health Informa tion Online using Patient Portal and [employer] Indication:Nonsmoker Start:13-May-2021 Instruction Type:Patient Education How to Access Health Informa tion Online using Patient Portal and [employer] Indication:Nonsmoker Start:04-Apr-2021 Instruction Type:Patient Education Patient Instructions Indication:Nonsmoker Start:04-Apr-2021 Instruction Type:Provider Instructions for Treatment Patient Instructions Indication:BMI 30.0-30.9,adult Start:21-Mar-2021 Instruction Type:Provider Instructions for Treatment How to Access Health Informa tion Online using Patient Portal and [employer] Indication:BMI 30.0-30.9,adult Start:21-Mar-2021 Instruction Type:Patient Education How to access health informa tion online Indication:Nonsmoker Start:28-May-2020 Instruction Type:Patient Education How to access health informa tion online - Detail Indication:Nonsmoker Start:28-May-2020 Instruction Type:Patient Education Patient Instructions Indication:Nonsmoker Start:28-May-2020 Instruction Type:Provider Instructions for Treatment How to access health informa tion online Indication:Nonsmoker Start:05-Mar-2020 Instruction Type:Patient Education How to access health informa tion online - Detail Indication:Nonsmoker Start:05-Mar-2020 Instruction Type:Patient Education Patient Instructions Indication:Nonsmoker Start:05-Mar-2020 Instruction Type:Provider Instructions for Treatment How to access health informa tion online Indication:Nonsmoker Start:05-Jun-2019 Instruction Type:Patient Education How to access health informa tion online - Detail Indication:Nonsmoker Start:05-Jun-2019 Instruction Type:Patient Education Patient Instructions Indication:Nonsmoker Start:05-Jun-2019 Instruction Type:Provider Instructions for Treatment How to access health informa tion online Indication:Nonsmoker Start:24-Feb-2019 Instruction Type:Patient Education How to access health informa tion online - Detail Indication:Nonsmoker Start:24-Feb-2019 Instruction Type:Patient Education Patient Instructions Indication:BMI 30.0-30.9,adult Start:24-Feb-2019 Instruction Type:Provider Instructions for Treatment How to access health informa tion online Indication:BMI 30.0-30.9,adult Start:06-May-2018 Instruction Type:Patient Education How to access health informa tion online - Detail Indication:BMI 30.0-30.9,adult Start:06-May-2018 Instruction Type:Patient Education Patient Instructions Indication:Nonsmoker Start:06-May-2018 Instruction Type:Provider Instructions for Treatment How to access health informa tion online Indication:Nonsmoker Start:15-Apr-2018 Instruction Type:Patient Education How to access health informa tion online - Detail Indication:Nonsmoker Start:15-Apr-2018 Instruction Type:Patient Education Patient Instructions Indication:Nonsmoker Start:15-Apr-2018 Instruction Type:Provider Instructions for Treatment Patient Instructions Indication:BMI 29.0-29.9,adult Start:03-Feb-2018 Instruction Type:Provider Instructions for Treatment How to access health informa tion online Indication:Encounter for gynecological examination without abnormal finding Start:03-Feb-2018 Instruction Type:Patient Education How to access health informa tion online - Detail Indication:Encounter for gynecological examination without abnormal finding Start:03-Feb-2018 Instruction Type:Patient Education Patient Instructions Indication:Encounter for gynecological examination without abnormal finding Start:03-Feb-2018 Instruction Type:Provider Instructions for Treatment How to access health informa tion online Indication:Hypertension, benign Start:21-Jan-2018 Instruction Type:Patient Education How to access health informa tion online - Detail Indication:Hypertension, benign Start:21-Jan-2018 Instruction Type:Patient Education Patient Instructions Indication:Hypertension, benign Start:21-Jan-2018 Instruction Type:Provider Instructions for Treatment DISCONTINUED - Vitamin D Hyd annmarie ([id number]) Indication:Vitamin D deficiency Start:01-Mar-2017 Instruction Type:Patient Education DISCONTINUED - METABOLIC CAREY EL, COMPREHENSIVE ([id number]) Indication:Hypertension, benign Start:01-Mar-2017 Instruction Type:Patient Education How to access health informa tion online Indication:UTI symptoms Start:01-Mar-2017 Instruction Type:Patient Education How to access health informa tion online - Detail Indication:UTI symptoms Start:01-Mar-2017 Instruction Type:Patient Education Patient Instructions Indication:UTI symptoms Start:01-Mar-2017 Instruction Type:Provider Instructions for Treatment How to access health informa tion online Indication:Neck pain on left side Start:08-Dec-2016 Instruction Type:Patient Education How to access health informa tion online - Detail Indication:Neck pain on left side Start:08-Dec-2016 Instruction Type:Patient Education Patient Instructions Indication:Neck pain on left side Start:08-Dec-2016 Instruction Type:Provider Instructions for Treatment How to access health informa tion online Indication:Encounter for pre-employment examination Start:06-Mar-2015 Instruction Type:Patient Education How to access health informa tion online - Detail Indication:Encounter for pre-employment examination Start:06-Mar-2015 Instruction Type:Patient Education Patient Instructions Indication:Encounter for pre-employment examination Start:06-Mar-2015 Instruction Type:Provider Instructions for Treatment Patient Instructions Indication:Other abnormal finding of urine Start:30-Mar-2014 Instruction Type:Provider Instructions for Treatment How to access health informa tion online Indication:Hypertension, benign Start:02-Feb-2014 Instruction Type:Patient Education How to access health informa tion online - Detail Indication:Hypertension, benign Start:02-Feb-2014 Instruction Type:Patient Education Patient Instructions Indication:Hypertension, benign Start:02-Feb-2014 Instruction Type:Provider Instructions for Treatment Patient Instructions Indication:Hypertension, benign Start:27-Oct-2013 Instruction Type:Provider Instructions for Treatment Patient Instructions Indication:Hypertension, benign Start:03-Jul-2013 Instruction Type:Provider Instructions for Treatment Patient Instructions Indication:Hypoalbuminemia Start:29-Mar-2013 Instruction Type:Provider Instructions for Treatment [facility] Work Phone: Instructions* Name Dates Details Patient Instructions Indication:BMI 29.0-29.9,adult Start:20-Feb-2022 Instruction Type:Provider Instructions for Treatment How to Access Health Informa tion Online using Patient Portal and [employer] Apps Indication:BMI 29.0-29.9,adult Start:20-Feb-2022 Instruction Type:Patient Education Patient Instructions Indication:BMI 30.0-30.9,adult Start:23-Jan-2022 Instruction Type:Provider Instructions for Treatment How to Access Health Informa tion Online using Patient Portal and [employer] Apps Indication:BMI 30.0-30.9,adult Start:23-Jan-2022 Instruction Type:Patient Education Patient Instructions Indication:Hypokalemia (Renamed from Decreased potassium in the blood) Start:31-Dec-2021 Instruction Type:Provider Instructions for Treatment How to Access Health Informa tion Online using Patient Portal and [employer]rd [employer] Apps Indication:Hypokalemia (Renamed from Decreased potassium in the blood) Start:31-Dec-2021 Instruction Type:Patient Education Patient Instructions Indication:Hypertension, benign Start:16-Dec-2021 Instruction Type:Provider Instructions for Treatment Patient Instructions Indication:Hypertension, benign Start:04-Jul-2021 Instruction Type:Provider Instructions for Treatment How to Access Health Informa tion Online using Patient Portal and [employer]rd [employer] Apps Indication:Hypertension, benign Start:04-Jul-2021 Instruction Type:Patient Education Patient Instructions Indication:Nonsmoker Start:13-May-2021 Instruction Type:Provider Instructions for Treatment How to Access Health Informa tion Online using Patient Portal and [employer]rd [employer] Apps Indication:Nonsmoker Start:13-May-2021 Instruction Type:Patient Education How to Access Health Informa tion Online using Patient Portal and [employer]rd [employer] Apps Indication:Nonsmoker Start:04-Apr-2021 Instruction Type:Patient Education Patient Instructions Indication:Nonsmoker Start:04-Apr-2021 Instruction Type:Provider Instructions for Treatment Patient Instructions Indication:BMI 30.0-30.9,adult Start:21-Mar-2021 Instruction Type:Provider Instructions for Treatment How to Access Health Informa tion Online using Patient Portal and [employer]rd [employer] Apps Indication:BMI 30.0-30.9,adult Start:21-Mar-2021 Instruction Type:Patient Education How to access health informa tion online Indication:Nonsmoker Start:28-May-2020 Instruction Type:Patient Education How to access health informa tion online - Detail Indication:Nonsmoker Start:28-May-2020 Instruction Type:Patient Education Patient Instructions Indication:Nonsmoker Start:28-May-2020 Instruction Type:Provider Instructions for Treatment How to access health informa tion online Indication:Nonsmoker Start:05-Mar-2020 Instruction Type:Patient Education How to access health informa tion online - Detail Indication:Nonsmoker Start:05-Mar-2020 Instruction Type:Patient Education Patient Instructions Indication:Nonsmoker Start:05-Mar-2020 Instruction Type:Provider Instructions for Treatment How to access health informa tion online Indication:Nonsmoker Start:05-Jun-2019 Instruction Type:Patient Education How to access health informa tion online - Detail Indication:Nonsmoker Start:05-Jun-2019 Instruction Type:Patient Education Patient Instructions Indication:Nonsmoker Start:05-Jun-2019 Instruction Type:Provider Instructions for Treatment How to access health informa tion online Indication:Nonsmoker Start:24-Feb-2019 Instruction Type:Patient Education How to access health informa tion online - Detail Indication:Nonsmoker Start:24-Feb-2019 Instruction Type:Patient Education Patient Instructions Indication:BMI 30.0-30.9,adult Start:24-Feb-2019 Instruction Type:Provider Instructions for Treatment How to access health informa tion online Indication:BMI 30.0-30.9,adult Start:06-May-2018 Instruction Type:Patient Education How to access health informa tion online - Detail Indication:BMI 30.0-30.9,adult Start:06-May-2018 Instruction Type:Patient Education Patient Instructions Indication:Nonsmoker Start:06-May-2018 Instruction Type:Provider Instructions for Treatment How to access health informa tion online Indication:Nonsmoker Start:15-Apr-2018 Instruction Type:Patient Education How to access health informa tion online - Detail Indication:Nonsmoker Start:15-Apr-2018 Instruction Type:Patient Education Patient Instructions Indication:Nonsmoker Start:15-Apr-2018 Instruction Type:Provider Instructions for Treatment Patient Instructions Indication:BMI 29.0-29.9,adult Start:03-Feb-2018 Instruction Type:Provider Instructions for Treatment How to access health informa tion online Indication:Encounter for gynecological examination without abnormal finding Start:03-Feb-2018 Instruction Type:Patient Education How to access health informa tion online - Detail Indication:Encounter for gynecological examination without abnormal finding Start:03-Feb-2018 Instruction Type:Patient Education Patient Instructions Indication:Encounter for gynecological examination without abnormal finding Start:03-Feb-2018 Instruction Type:Provider Instructions for Treatment How to access health informa tion online Indication:Hypertension, benign Start:21-Jan-2018 Instruction Type:Patient Education How to access health informa tion online - Detail Indication:Hypertension, benign Start:21-Jan-2018 Instruction Type:Patient Education Patient Instructions Indication:Hypertension, benign Start:21-Jan-2018 Instruction Type:Provider Instructions for Treatment DISCONTINUED - Vitamin D Hyd annmarie (96076) Indication:Vitamin D deficiency Start:01-Mar-2017 Instruction Type:Patient Education DISCONTINUED - METABOLIC CAREY EL, COMPREHENSIVE (78933) Indication:Hypertension, benign Start:01-Mar-2017 Instruction Type:Patient Education How to access health informa tion online Indication:UTI symptoms Start:01-Mar-2017 Instruction Type:Patient Education How to access health informa tion online - Detail Indication:UTI symptoms Start:01-Mar-2017 Instruction Type:Patient Education Patient Instructions Indication:UTI symptoms Start:01-Mar-2017 Instruction Type:Provider Instructions for Treatment How to access health informa tion online Indication:Neck pain on left side Start:08-Dec-2016 Instruction Type:Patient Education How to access health informa tion online - Detail Indication:Neck pain on left side Start:08-Dec-2016 Instruction Type:Patient Education Patient Instructions Indication:Neck pain on left side Start:08-Dec-2016 Instruction Type:Provider Instructions for Treatment How to access health informa tion online Indication:Encounter for pre-employment examination Start:06-Mar-2015 Instruction Type:Patient Education How to access health informa tion online - Detail Indication:Encounter for pre-employment examination Start:06-Mar-2015 Instruction Type:Patient Education Patient Instructions Indication:Encounter for pre-employment examination Start:06-Mar-2015 Instruction Type:Provider Instructions for Treatment Patient Instructions Indication:Other abnormal finding of urine Start:30-Mar-2014 Instruction Type:Provider Instructions for Treatment How to access health informa tion online Indication:Hypertension, benign Start:02-Feb-2014 Instruction Type:Patient Education How to access health informa tion online - Detail Indication:Hypertension, benign Start:02-Feb-2014 Instruction Type:Patient Education Patient Instructions Indication:Hypertension, benign Start:02-Feb-2014 Instruction Type:Provider Instructions for Treatment Patient Instructions Indication:Hypertension, benign Start:27-Oct-2013 Instruction Type:Provider Instructions for Treatment Patient Instructions Indication:Hypertension, benign Start:03-Jul-2013 Instruction Type:Provider Instructions for Treatment Patient Instructions Indication:Hypoalbuminemia Start:29-Mar-2013 Instruction Type:Provider Instructions for Treatment [facility] Work Phone: Instructions* Name Dates Details Patient Instructions Indication:BMI 29.0-29.9,adult Start:20-Feb-2022 Instruction Type:Provider Instructions for Treatment How to Access Health Informa tion Online using Patient Portal and [employer]rd [employer] Apps Indication:BMI 29.0-29.9,adult Start:20-Feb-2022 Instruction Type:Patient Education Patient Instructions Indication:BMI 30.0-30.9,adult Start:23-Jan-2022 Instruction Type:Provider Instructions for Treatment How to Access Health Informa tion Online using Patient Portal and [employer] Apps Indication:BMI 30.0-30.9,adult Start:23-Jan-2022 Instruction Type:Patient Education Patient Instructions Indication:Hypokalemia (Renamed from Decreased potassium in the blood) Start:31-Dec-2021 Instruction Type:Provider Instructions for Treatment How to Access Health Informa tion Online using Patient Portal and [employer]rd [employer] Apps Indication:Hypokalemia (Renamed from Decreased potassium in the blood) Start:31-Dec-2021 Instruction Type:Patient Education Patient Instructions Indication:Hypertension, benign Start:16-Dec-2021 Instruction Type:Provider Instructions for Treatment Patient Instructions Indication:Hypertension, benign Start:04-Jul-2021 Instruction Type:Provider Instructions for Treatment How to Access Health Informa tion Online using Patient Portal and [employer] Apps Indication:Hypertension, benign Start:04-Jul-2021 Instruction Type:Patient Education Patient Instructions Indication:Nonsmoker Start:13-May-2021 Instruction Type:Provider Instructions for Treatment How to Access Health Informa tion Online using Patient Portal and [employer]rd [employer] Apps Indication:Nonsmoker Start:13-May-2021 Instruction Type:Patient Education How to Access Health Informa tion Online using Patient Portal and [employer] Apps Indication:Nonsmoker Start:04-Apr-2021 Instruction Type:Patient Education Patient Instructions Indication:Nonsmoker Start:04-Apr-2021 Instruction Type:Provider Instructions for Treatment Patient Instructions Indication:BMI 30.0-30.9,adult Start:21-Mar-2021 Instruction Type:Provider Instructions for Treatment How to Access Health Informa tion Online using Patient Portal and [employer]rd [employer] Apps Indication:BMI 30.0-30.9,adult Start:21-Mar-2021 Instruction Type:Patient Education How to access health informa tion online Indication:Nonsmoker Start:28-May-2020 Instruction Type:Patient Education How to access health informa tion online - Detail Indication:Nonsmoker Start:28-May-2020 Instruction Type:Patient Education Patient Instructions Indication:Nonsmoker Start:28-May-2020 Instruction Type:Provider Instructions for Treatment How to access health informa tion online Indication:Nonsmoker Start:05-Mar-2020 Instruction Type:Patient Education How to access health informa tion online - Detail Indication:Nonsmoker Start:05-Mar-2020 Instruction Type:Patient Education Patient Instructions Indication:Nonsmoker Start:05-Mar-2020 Instruction Type:Provider Instructions for Treatment How to access health informa tion online Indication:Nonsmoker Start:05-Jun-2019 Instruction Type:Patient Education How to access health informa tion online - Detail Indication:Nonsmoker Start:05-Jun-2019 Instruction Type:Patient Education Patient Instructions Indication:Nonsmoker Start:05-Jun-2019 Instruction Type:Provider Instructions for Treatment How to access health informa tion online Indication:Nonsmoker Start:24-Feb-2019 Instruction Type:Patient Education How to access health informa tion online - Detail Indication:Nonsmoker Start:24-Feb-2019 Instruction Type:Patient Education Patient Instructions Indication:BMI 30.0-30.9,adult Start:24-Feb-2019 Instruction Type:Provider Instructions for Treatment How to access health informa tion online Indication:BMI 30.0-30.9,adult Start:06-May-2018 Instruction Type:Patient Education How to access health informa tion online - Detail Indication:BMI 30.0-30.9,adult Start:06-May-2018 Instruction Type:Patient Education Patient Instructions Indication:Nonsmoker Start:06-May-2018 Instruction Type:Provider Instructions for Treatment How to access health informa tion online Indication:Nonsmoker Start:15-Apr-2018 Instruction Type:Patient Education How to access health informa tion online - Detail Indication:Nonsmoker Start:15-Apr-2018 Instruction Type:Patient Education Patient Instructions Indication:Nonsmoker Start:15-Apr-2018 Instruction Type:Provider Instructions for Treatment Patient Instructions Indication:BMI 29.0-29.9,adult Start:03-Feb-2018 Instruction Type:Provider Instructions for Treatment How to access health informa tion online Indication:Encounter for gynecological examination without abnormal finding Start:03-Feb-2018 Instruction Type:Patient Education How to access health informa tion online - Detail Indication:Encounter for gynecological examination without abnormal finding Start:03-Feb-2018 Instruction Type:Patient Education Patient Instructions Indication:Encounter for gynecological examination without abnormal finding Start:03-Feb-2018 Instruction Type:Provider Instructions for Treatment How to access health informa tion online Indication:Hypertension, benign Start:21-Jan-2018 Instruction Type:Patient Education How to access health informa tion online - Detail Indication:Hypertension, benign Start:21-Jan-2018 Instruction Type:Patient Education Patient Instructions Indication:Hypertension, benign Start:21-Jan-2018 Instruction Type:Provider Instructions for Treatment DISCONTINUED - Vitamin D Hyd annmarie (80860) Indication:Vitamin D deficiency Start:01-Mar-2017 Instruction Type:Patient Education DISCONTINUED - METABOLIC CAREY EL, COMPREHENSIVE ([id number]) Indication:Hypertension, benign Start:01-Mar-2017 Instruction Type:Patient Education How to access health informa tion online Indication:UTI symptoms Start:01-Mar-2017 Instruction Type:Patient Education How to access health informa tion online - Detail Indication:UTI symptoms Start:01-Mar-2017 Instruction Type:Patient Education Patient Instructions Indication:UTI symptoms Start:01-Mar-2017 Instruction Type:Provider Instructions for Treatment How to access health informa tion online Indication:Neck pain on left side Start:08-Dec-2016 Instruction Type:Patient Education How to access health informa tion online - Detail Indication:Neck pain on left side Start:08-Dec-2016 Instruction Type:Patient Education Patient Instructions Indication:Neck pain on left side Start:08-Dec-2016 Instruction Type:Provider Instructions for Treatment How to access health informa tion online Indication:Encounter for pre-employment examination Start:06-Mar-2015 Instruction Type:Patient Education How to access health informa tion online - Detail Indication:Encounter for pre-employment examination Start:06-Mar-2015 Instruction Type:Patient Education Patient Instructions Indication:Encounter for pre-employment examination Start:06-Mar-2015 Instruction Type:Provider Instructions for Treatment Patient Instructions Indication:Other abnormal finding of urine Start:30-Mar-2014 Instruction Type:Provider Instructions for Treatment How to access health informa tion online Indication:Hypertension, benign Start:02-Feb-2014 Instruction Type:Patient Education How to access health informa tion online - Detail Indication:Hypertension, benign Start:02-Feb-2014 Instruction Type:Patient Education Patient Instructions Indication:Hypertension, benign Start:02-Feb-2014 Instruction Type:Provider Instructions for Treatment Patient Instructions Indication:Hypertension, benign Start:27-Oct-2013 Instruction Type:Provider Instructions for Treatment Patient Instructions Indication:Hypertension, benign Start:03-Jul-2013 Instruction Type:Provider Instructions for Treatment Patient Instructions Indication:Hypoalbuminemia Start:29-Mar-2013 Instruction Type:Provider Instructions for Treatment [facility]; [facility] Work Phone: Instructions* Name Dates Details Patient Instructions Indication:BMI 28.0-28.9,adult Start:28-Aug-2022 Instruction Type:Provider Instructions for Treatment How to Access Health Informa tion Online using Patient Portal and [employer]rd [employer] Apps Indication:BMI 28.0-28.9,adult Start:28-Aug-2022 Instruction Type:Patient Education Patient Instructions Indication:BMI 29.0-29.9,adult Start:20-Feb-2022 Instruction Type:Provider Instructions for Treatment How to Access Health Informa tion Online using Patient Portal and [employer]rd [employer] Apps Indication:BMI 29.0-29.9,adult Start:20-Feb-2022 Instruction Type:Patient Education Patient Instructions Indication:BMI 30.0-30.9,adult Start:23-Jan-2022 Instruction Type:Provider Instructions for Treatment How to Access Health Informa tion Online using Patient Portal and [employer]rd [employer] Apps Indication:BMI 30.0-30.9,adult Start:23-Jan-2022 Instruction Type:Patient Education Patient Instructions Indication:Hypokalemia (Renamed from Decreased potassium in the blood) Start:31-Dec-2021 Instruction Type:Provider Instructions for Treatment How to Access Health Informa tion Online using Patient Portal and [employer]rd [employer] Apps Indication:Hypokalemia (Renamed from Decreased potassium in the blood) Start:31-Dec-2021 Instruction Type:Patient Education Patient Instructions Indication:Hypertension, benign Start:16-Dec-2021 Instruction Type:Provider Instructions for Treatment Patient Instructions Indication:Hypertension, benign Start:04-Jul-2021 Instruction Type:Provider Instructions for Treatment How to Access Health Informa tion Online using Patient Portal and [employer] Apps Indication:Hypertension, benign Start:04-Jul-2021 Instruction Type:Patient Education Patient Instructions Indication:Nonsmoker Start:13-May-2021 Instruction Type:Provider Instructions for Treatment How to Access Health Informa tion Online using Patient Portal and [employer] Apps Indication:Nonsmoker Start:13-May-2021 Instruction Type:Patient Education How to Access Health Informa tion Online using Patient Portal and [employer] Apps Indication:Nonsmoker Start:04-Apr-2021 Instruction Type:Patient Education Patient Instructions Indication:Nonsmoker Start:04-Apr-2021 Instruction Type:Provider Instructions for Treatment Patient Instructions Indication:BMI 30.0-30.9,adult Start:21-Mar-2021 Instruction Type:Provider Instructions for Treatment How to Access Health Informa tion Online using Patient Portal and [employer]rd [employer] Apps Indication:BMI 30.0-30.9,adult Start:21-Mar-2021 Instruction Type:Patient Education How to access health informa tion online Indication:Nonsmoker Start:28-May-2020 Instruction Type:Patient Education How to access health informa tion online - Detail Indication:Nonsmoker Start:28-May-2020 Instruction Type:Patient Education Patient Instructions Indication:Nonsmoker Start:28-May-2020 Instruction Type:Provider Instructions for Treatment How to access health informa tion online Indication:Nonsmoker Start:05-Mar-2020 Instruction Type:Patient Education How to access health informa tion online - Detail Indication:Nonsmoker Start:05-Mar-2020 Instruction Type:Patient Education Patient Instructions Indication:Nonsmoker Start:05-Mar-2020 Instruction Type:Provider Instructions for Treatment How to access health informa tion online Indication:Nonsmoker Start:05-Jun-2019 Instruction Type:Patient Education How to access health informa tion online - Detail Indication:Nonsmoker Start:05-Jun-2019 Instruction Type:Patient Education Patient Instructions Indication:Nonsmoker Start:05-Jun-2019 Instruction Type:Provider Instructions for Treatment How to access health informa tion online Indication:Nonsmoker Start:24-Feb-2019 Instruction Type:Patient Education How to access health informa tion online - Detail Indication:Nonsmoker Start:24-Feb-2019 Instruction Type:Patient Education Patient Instructions Indication:BMI 30.0-30.9,adult Start:24-Feb-2019 Instruction Type:Provider Instructions for Treatment How to access health informa tion online Indication:BMI 30.0-30.9,adult Start:06-May-2018 Instruction Type:Patient Education How to access health informa tion online - Detail Indication:BMI 30.0-30.9,adult Start:06-May-2018 Instruction Type:Patient Education Patient Instructions Indication:Nonsmoker Start:06-May-2018 Instruction Type:Provider Instructions for Treatment How to access health informa tion online Indication:Nonsmoker Start:15-Apr-2018 Instruction Type:Patient Education How to access health informa tion online - Detail Indication:Nonsmoker Start:15-Apr-2018 Instruction Type:Patient Education Patient Instructions Indication:Nonsmoker Start:15-Apr-2018 Instruction Type:Provider Instructions for Treatment Patient Instructions Indication:BMI 29.0-29.9,adult Start:03-Feb-2018 Instruction Type:Provider Instructions for Treatment How to access health informa tion online Indication:Encounter for gynecological examination without abnormal finding Start:03-Feb-2018 Instruction Type:Patient Education How to access health informa tion online - Detail Indication:Encounter for gynecological examination without abnormal finding Start:03-Feb-2018 Instruction Type:Patient Education Patient Instructions Indication:Encounter for gynecological examination without abnormal finding Start:03-Feb-2018 Instruction Type:Provider Instructions for Treatment How to access health informa tion online Indication:Hypertension, benign Start:21-Jan-2018 Instruction Type:Patient Education How to access health informa tion online - Detail Indication:Hypertension, benign Start:21-Jan-2018 Instruction Type:Patient Education Patient Instructions Indication:Hypertension, benign Start:21-Jan-2018 Instruction Type:Provider Instructions for Treatment DISCONTINUED - Vitamin D Hyd annmarie ([id number]) Indication:Vitamin D deficiency Start:01-Mar-2017 Instruction Type:Patient Education DISCONTINUED - METABOLIC CAREY EL, COMPREHENSIVE ([id number]) Indication:Hypertension, benign Start:01-Mar-2017 Instruction Type:Patient Education How to access health informa tion online Indication:UTI symptoms Start:01-Mar-2017 Instruction Type:Patient Education How to access health informa tion online - Detail Indication:UTI symptoms Start:01-Mar-2017 Instruction Type:Patient Education Patient Instructions Indication:UTI symptoms Start:01-Mar-2017 Instruction Type:Provider Instructions for Treatment How to access health informa tion online Indication:Neck pain on left side Start:08-Dec-2016 Instruction Type:Patient Education How to access health informa tion online - Detail Indication:Neck pain on left side Start:08-Dec-2016 Instruction Type:Patient Education Patient Instructions Indication:Neck pain on left side Start:08-Dec-2016 Instruction Type:Provider Instructions for Treatment How to access health informa tion online Indication:Encounter for pre-employment examination Start:06-Mar-2015 Instruction Type:Patient Education How to access health informa tion online - Detail Indication:Encounter for pre-employment examination Start:06-Mar-2015 Instruction Type:Patient Education Patient Instructions Indication:Encounter for pre-employment examination Start:06-Mar-2015 Instruction Type:Provider Instructions for Treatment Patient Instructions Indication:Other abnormal finding of urine Start:30-Mar-2014 Instruction Type:Provider Instructions for Treatment How to access health informa tion online Indication:Hypertension, benign Start:02-Feb-2014 Instruction Type:Patient Education How to access health informa tion online - Detail Indication:Hypertension, benign Start:02-Feb-2014 Instruction Type:Patient Education Patient Instructions Indication:Hypertension, benign Start:02-Feb-2014 Instruction Type:Provider Instructions for Treatment Patient Instructions Indication:Hypertension, benign Start:27-Oct-2013 Instruction Type:Provider Instructions for Treatment Patient Instructions Indication:Hypertension, benign Start:03-Jul-2013 Instruction Type:Provider Instructions for Treatment Patient Instructions Indication:Hypoalbuminemia Start:29-Mar-2013 Instruction Type:Provider Instructions for Treatment [facility]; [facility] Work Phone: Instructions* Name Dates Details Patient Instructions Indication:BMI 28.0-28.9,adult Start:28-Aug-2022 Instruction Type:Provider Instructions for Treatment How to Access Health Informa tion Online using Patient Portal and [employer] Apps Indication:BMI 28.0-28.9,adult Start:28-Aug-2022 Instruction Type:Patient Education Patient Instructions Indication:BMI 29.0-29.9,adult Start:20-Feb-2022 Instruction Type:Provider Instructions for Treatment How to Access Health Informa tion Online using Patient Portal and [employer] Apps Indication:BMI 29.0-29.9,adult Start:20-Feb-2022 Instruction Type:Patient Education Patient Instructions Indication:BMI 30.0-30.9,adult Start:23-Jan-2022 Instruction Type:Provider Instructions for Treatment How to Access Health Informa tion Online using Patient Portal and [employer] Apps Indication:BMI 30.0-30.9,adult Start:23-Jan-2022 Instruction Type:Patient Education Patient Instructions Indication:Hypokalemia (Renamed from Decreased potassium in the blood) Start:31-Dec-2021 Instruction Type:Provider Instructions for Treatment How to Access Health Informa tion Online using Patient Portal and [employer] Apps Indication:Hypokalemia (Renamed from Decreased potassium in the blood) Start:31-Dec-2021 Instruction Type:Patient Education Patient Instructions Indication:Hypertension, benign Start:16-Dec-2021 Instruction Type:Provider Instructions for Treatment Patient Instructions Indication:Hypertension, benign Start:04-Jul-2021 Instruction Type:Provider Instructions for Treatment How to Access Health Informa tion Online using Patient Portal and [employer] Apps Indication:Hypertension, benign Start:04-Jul-2021 Instruction Type:Patient Education Patient Instructions Indication:Nonsmoker Start:13-May-2021 Instruction Type:Provider Instructions for Treatment How to Access Health Informa tion Online using Patient Portal and [employer]rd [employer] Apps Indication:Nonsmoker Start:13-May-2021 Instruction Type:Patient Education How to Access Health Informa tion Online using Patient Portal and [employer] Apps Indication:Nonsmoker Start:04-Apr-2021 Instruction Type:Patient Education Patient Instructions Indication:Nonsmoker Start:04-Apr-2021 Instruction Type:Provider Instructions for Treatment Patient Instructions Indication:BMI 30.0-30.9,adult Start:21-Mar-2021 Instruction Type:Provider Instructions for Treatment How to Access Health Informa tion Online using Patient Portal and [employer] Apps Indication:BMI 30.0-30.9,adult Start:21-Mar-2021 Instruction Type:Patient Education How to access health informa tion online Indication:Nonsmoker Start:28-May-2020 Instruction Type:Patient Education How to access health informa tion online - Detail Indication:Nonsmoker Start:28-May-2020 Instruction Type:Patient Education Patient Instructions Indication:Nonsmoker Start:28-May-2020 Instruction Type:Provider Instructions for Treatment How to access health informa tion online Indication:Nonsmoker Start:05-Mar-2020 Instruction Type:Patient Education How to access health informa tion online - Detail Indication:Nonsmoker Start:05-Mar-2020 Instruction Type:Patient Education Patient Instructions Indication:Nonsmoker Start:05-Mar-2020 Instruction Type:Provider Instructions for Treatment How to access health informa tion online Indication:Nonsmoker Start:05-Jun-2019 Instruction Type:Patient Education How to access health informa tion online - Detail Indication:Nonsmoker Start:05-Jun-2019 Instruction Type:Patient Education Patient Instructions Indication:Nonsmoker Start:05-Jun-2019 Instruction Type:Provider Instructions for Treatment How to access health informa tion online Indication:Nonsmoker Start:24-Feb-2019 Instruction Type:Patient Education How to access health informa tion online - Detail Indication:Nonsmoker Start:24-Feb-2019 Instruction Type:Patient Education Patient Instructions Indication:BMI 30.0-30.9,adult Start:24-Feb-2019 Instruction Type:Provider Instructions for Treatment How to access health informa tion online Indication:BMI 30.0-30.9,adult Start:06-May-2018 Instruction Type:Patient Education How to access health informa tion online - Detail Indication:BMI 30.0-30.9,adult Start:06-May-2018 Instruction Type:Patient Education Patient Instructions Indication:Nonsmoker Start:06-May-2018 Instruction Type:Provider Instructions for Treatment How to access health informa tion online Indication:Nonsmoker Start:15-Apr-2018 Instruction Type:Patient Education How to access health informa tion online - Detail Indication:Nonsmoker Start:15-Apr-2018 Instruction Type:Patient Education Patient Instructions Indication:Nonsmoker Start:15-Apr-2018 Instruction Type:Provider Instructions for Treatment Patient Instructions Indication:BMI 29.0-29.9,adult Start:03-Feb-2018 Instruction Type:Provider Instructions for Treatment How to access health informa tion online Indication:Encounter for gynecological examination without abnormal finding Start:03-Feb-2018 Instruction Type:Patient Education How to access health informa tion online - Detail Indication:Encounter for gynecological examination without abnormal finding Start:03-Feb-2018 Instruction Type:Patient Education Patient Instructions Indication:Encounter for gynecological examination without abnormal finding Start:03-Feb-2018 Instruction Type:Provider Instructions for Treatment How to access health informa tion online Indication:Hypertension, benign Start:21-Jan-2018 Instruction Type:Patient Education How to access health informa tion online - Detail Indication:Hypertension, benign Start:21-Jan-2018 Instruction Type:Patient Education Patient Instructions Indication:Hypertension, benign Start:21-Jan-2018 Instruction Type:Provider Instructions for Treatment DISCONTINUED - Vitamin D Hyd annmarie (88061) Indication:Vitamin D deficiency Start:01-Mar-2017 Instruction Type:Patient Education DISCONTINUED - METABOLIC CAREY EL, COMPREHENSIVE (47237) Indication:Hypertension, benign Start:01-Mar-2017 Instruction Type:Patient Education How to access health informa tion online Indication:UTI symptoms Start:01-Mar-2017 Instruction Type:Patient Education How to access health informa tion online - Detail Indication:UTI symptoms Start:01-Mar-2017 Instruction Type:Patient Education Patient Instructions Indication:UTI symptoms Start:01-Mar-2017 Instruction Type:Provider Instructions for Treatment How to access health informa tion online Indication:Neck pain on left side Start:08-Dec-2016 Instruction Type:Patient Education How to access health informa tion online - Detail Indication:Neck pain on left side Start:08-Dec-2016 Instruction Type:Patient Education Patient Instructions Indication:Neck pain on left side Start:08-Dec-2016 Instruction Type:Provider Instructions for Treatment How to access health informa tion online Indication:Encounter for pre-employment examination Start:06-Mar-2015 Instruction Type:Patient Education How to access health informa tion online - Detail Indication:Encounter for pre-employment examination Start:06-Mar-2015 Instruction Type:Patient Education Patient Instructions Indication:Encounter for pre-employment examination Start:06-Mar-2015 Instruction Type:Provider Instructions for Treatment Patient Instructions Indication:Other abnormal finding of urine Start:30-Mar-2014 Instruction Type:Provider Instructions for Treatment How to access health informa tion online Indication:Hypertension, benign Start:02-Feb-2014 Instruction Type:Patient Education How to access health informa tion online - Detail Indication:Hypertension, benign Start:02-Feb-2014 Instruction Type:Patient Education Patient Instructions Indication:Hypertension, benign Start:02-Feb-2014 Instruction Type:Provider Instructions for Treatment Patient Instructions Indication:Hypertension, benign Start:27-Oct-2013 Instruction Type:Provider Instructions for Treatment Patient Instructions Indication:Hypertension, benign Start:03-Jul-2013 Instruction Type:Provider Instructions for Treatment Patient Instructions Indication:Hypoalbuminemia Start:29-Mar-2013 Instruction Type:Provider Instructions for Treatment [facility]; [facility] Work Phone: Instructions* Name Dates Details Patient Instructions Indication:BMI 28.0-28.9,adult Start:28-Aug-2022 Instruction Type:Provider Instructions for Treatment How to Access Health Informa tion Online using Patient Portal and [employer]rd [employer] Apps Indication:BMI 28.0-28.9,adult Start:28-Aug-2022 Instruction Type:Patient Education Patient Instructions Indication:BMI 29.0-29.9,adult Start:20-Feb-2022 Instruction Type:Provider Instructions for Treatment How to Access Health Informa tion Online using Patient Portal and [employer] Apps Indication:BMI 29.0-29.9,adult Start:20-Feb-2022 Instruction Type:Patient Education Patient Instructions Indication:BMI 30.0-30.9,adult Start:23-Jan-2022 Instruction Type:Provider Instructions for Treatment How to Access Health Informa tion Online using Patient Portal and [employer] Apps Indication:BMI 30.0-30.9,adult Start:23-Jan-2022 Instruction Type:Patient Education Patient Instructions Indication:Hypokalemia (Renamed from Decreased potassium in the blood) Start:31-Dec-2021 Instruction Type:Provider Instructions for Treatment How to Access Health Informa tion Online using Patient Portal and [employer] Apps Indication:Hypokalemia (Renamed from Decreased potassium in the blood) Start:31-Dec-2021 Instruction Type:Patient Education Patient Instructions Indication:Hypertension, benign Start:16-Dec-2021 Instruction Type:Provider Instructions for Treatment Patient Instructions Indication:Hypertension, benign Start:04-Jul-2021 Instruction Type:Provider Instructions for Treatment How to Access Health Informa tion Online using Patient Portal and [employer]rd [employer] Apps Indication:Hypertension, benign Start:04-Jul-2021 Instruction Type:Patient Education Patient Instructions Indication:Nonsmoker Start:13-May-2021 Instruction Type:Provider Instructions for Treatment How to Access Health Informa tion Online using Patient Portal and [employer]rd [employer] Apps Indication:Nonsmoker Start:13-May-2021 Instruction Type:Patient Education How to Access Health Informa tion Online using Patient Portal and [employer] Apps Indication:Nonsmoker Start:04-Apr-2021 Instruction Type:Patient Education Patient Instructions Indication:Nonsmoker Start:04-Apr-2021 Instruction Type:Provider Instructions for Treatment Patient Instructions Indication:BMI 30.0-30.9,adult Start:21-Mar-2021 Instruction Type:Provider Instructions for Treatment How to Access Health Informa tion Online using Patient Portal and [employer]rd [employer] Apps Indication:BMI 30.0-30.9,adult Start:21-Mar-2021 Instruction Type:Patient Education How to access health informa tion online Indication:Nonsmoker Start:28-May-2020 Instruction Type:Patient Education How to access health informa tion online - Detail Indication:Nonsmoker Start:28-May-2020 Instruction Type:Patient Education Patient Instructions Indication:Nonsmoker Start:28-May-2020 Instruction Type:Provider Instructions for Treatment How to access health informa tion online Indication:Nonsmoker Start:05-Mar-2020 Instruction Type:Patient Education How to access health informa tion online - Detail Indication:Nonsmoker Start:05-Mar-2020 Instruction Type:Patient Education Patient Instructions Indication:Nonsmoker Start:05-Mar-2020 Instruction Type:Provider Instructions for Treatment How to access health informa tion online Indication:Nonsmoker Start:05-Jun-2019 Instruction Type:Patient Education How to access health informa tion online - Detail Indication:Nonsmoker Start:05-Jun-2019 Instruction Type:Patient Education Patient Instructions Indication:Nonsmoker Start:05-Jun-2019 Instruction Type:Provider Instructions for Treatment How to access health informa tion online Indication:Nonsmoker Start:24-Feb-2019 Instruction Type:Patient Education How to access health informa tion online - Detail Indication:Nonsmoker Start:24-Feb-2019 Instruction Type:Patient Education Patient Instructions Indication:BMI 30.0-30.9,adult Start:24-Feb-2019 Instruction Type:Provider Instructions for Treatment How to access health informa tion online Indication:BMI 30.0-30.9,adult Start:06-May-2018 Instruction Type:Patient Education How to access health informa tion online - Detail Indication:BMI 30.0-30.9,adult Start:06-May-2018 Instruction Type:Patient Education Patient Instructions Indication:Nonsmoker Start:06-May-2018 Instruction Type:Provider Instructions for Treatment How to access health informa tion online Indication:Nonsmoker Start:15-Apr-2018 Instruction Type:Patient Education How to access health informa tion online - Detail Indication:Nonsmoker Start:15-Apr-2018 Instruction Type:Patient Education Patient Instructions Indication:Nonsmoker Start:15-Apr-2018 Instruction Type:Provider Instructions for Treatment Patient Instructions Indication:BMI 29.0-29.9,adult Start:03-Feb-2018 Instruction Type:Provider Instructions for Treatment How to access health informa tion online Indication:Encounter for gynecological examination without abnormal finding Start:03-Feb-2018 Instruction Type:Patient Education How to access health informa tion online - Detail Indication:Encounter for gynecological examination without abnormal finding Start:03-Feb-2018 Instruction Type:Patient Education Patient Instructions Indication:Encounter for gynecological examination without abnormal finding Start:03-Feb-2018 Instruction Type:Provider Instructions for Treatment How to access health informa tion online Indication:Hypertension, benign Start:21-Jan-2018 Instruction Type:Patient Education How to access health informa tion online - Detail Indication:Hypertension, benign Start:21-Jan-2018 Instruction Type:Patient Education Patient Instructions Indication:Hypertension, benign Start:21-Jan-2018 Instruction Type:Provider Instructions for Treatment DISCONTINUED - Vitamin D Hyd annmarie (78247) Indication:Vitamin D deficiency Start:01-Mar-2017 Instruction Type:Patient Education DISCONTINUED - METABOLIC CAREY EL, COMPREHENSIVE ([id number]) Indication:Hypertension, benign Start:01-Mar-2017 Instruction Type:Patient Education How to access health informa tion online Indication:UTI symptoms Start:01-Mar-2017 Instruction Type:Patient Education How to access health informa tion online - Detail Indication:UTI symptoms Start:01-Mar-2017 Instruction Type:Patient Education Patient Instructions Indication:UTI symptoms Start:01-Mar-2017 Instruction Type:Provider Instructions for Treatment How to access health informa tion online Indication:Neck pain on left side Start:08-Dec-2016 Instruction Type:Patient Education How to access health informa tion online - Detail Indication:Neck pain on left side Start:08-Dec-2016 Instruction Type:Patient Education Patient Instructions Indication:Neck pain on left side Start:08-Dec-2016 Instruction Type:Provider Instructions for Treatment How to access health informa tion online Indication:Encounter for pre-employment examination Start:06-Mar-2015 Instruction Type:Patient Education How to access health informa tion online - Detail Indication:Encounter for pre-employment examination Start:06-Mar-2015 Instruction Type:Patient Education Patient Instructions Indication:Encounter for pre-employment examination Start:06-Mar-2015 Instruction Type:Provider Instructions for Treatment Patient Instructions Indication:Other abnormal finding of urine Start:30-Mar-2014 Instruction Type:Provider Instructions for Treatment How to access health informa tion online Indication:Hypertension, benign Start:02-Feb-2014 Instruction Type:Patient Education How to access health informa tion online - Detail Indication:Hypertension, benign Start:02-Feb-2014 Instruction Type:Patient Education Patient Instructions Indication:Hypertension, benign Start:02-Feb-2014 Instruction Type:Provider Instructions for Treatment Patient Instructions Indication:Hypertension, benign Start:27-Oct-2013 Instruction Type:Provider Instructions for Treatment Patient Instructions Indication:Hypertension, benign Start:03-Jul-2013 Instruction Type:Provider Instructions for Treatment Patient Instructions Indication:Hypoalbuminemia Start:29-Mar-2013 Instruction Type:Provider Instructions for Treatment [facility]; [facility] Work Phone: Instructions* Name Dates Details Patient Instructions Indication:BMI 28.0-28.9,adult Start:28-Aug-2022 Instruction Type:Provider Instructions for Treatment How to Access Health Informa tion Online using Patient Portal and [employer]rd [employer] Apps Indication:BMI 28.0-28.9,adult Start:28-Aug-2022 Instruction Type:Patient Education Patient Instructions Indication:BMI 29.0-29.9,adult Start:20-Feb-2022 Instruction Type:Provider Instructions for Treatment How to Access Health Informa tion Online using Patient Portal and [employer]rd [employer] Apps Indication:BMI 29.0-29.9,adult Start:20-Feb-2022 Instruction Type:Patient Education Patient Instructions Indication:BMI 30.0-30.9,adult Start:23-Jan-2022 Instruction Type:Provider Instructions for Treatment How to Access Health Informa tion Online using Patient Portal and [employer]rd [employer] Apps Indication:BMI 30.0-30.9,adult Start:23-Jan-2022 Instruction Type:Patient Education Patient Instructions Indication:Hypokalemia (Renamed from Decreased potassium in the blood) Start:31-Dec-2021 Instruction Type:Provider Instructions for Treatment How to Access Health Informa tion Online using Patient Portal and [employer] Apps Indication:Hypokalemia (Renamed from Decreased potassium in the blood) Start:31-Dec-2021 Instruction Type:Patient Education Patient Instructions Indication:Hypertension, benign Start:16-Dec-2021 Instruction Type:Provider Instructions for Treatment Patient Instructions Indication:Hypertension, benign Start:04-Jul-2021 Instruction Type:Provider Instructions for Treatment How to Access Health Informa tion Online using Patient Portal and [employer] Apps Indication:Hypertension, benign Start:04-Jul-2021 Instruction Type:Patient Education Patient Instructions Indication:Nonsmoker Start:13-May-2021 Instruction Type:Provider Instructions for Treatment How to Access Health Informa tion Online using Patient Portal and [employer] Apps Indication:Nonsmoker Start:13-May-2021 Instruction Type:Patient Education How to Access Health Informa tion Online using Patient Portal and [employer] Apps Indication:Nonsmoker Start:04-Apr-2021 Instruction Type:Patient Education Patient Instructions Indication:Nonsmoker Start:04-Apr-2021 Instruction Type:Provider Instructions for Treatment Patient Instructions Indication:BMI 30.0-30.9,adult Start:21-Mar-2021 Instruction Type:Provider Instructions for Treatment How to Access Health Informa tion Online using Patient Portal and [employer] Apps Indication:BMI 30.0-30.9,adult Start:21-Mar-2021 Instruction Type:Patient Education How to access health informa tion online Indication:Nonsmoker Start:28-May-2020 Instruction Type:Patient Education How to access health informa tion online - Detail Indication:Nonsmoker Start:28-May-2020 Instruction Type:Patient Education Patient Instructions Indication:Nonsmoker Start:28-May-2020 Instruction Type:Provider Instructions for Treatment How to access health informa tion online Indication:Nonsmoker Start:05-Mar-2020 Instruction Type:Patient Education How to access health informa tion online - Detail Indication:Nonsmoker Start:05-Mar-2020 Instruction Type:Patient Education Patient Instructions Indication:Nonsmoker Start:05-Mar-2020 Instruction Type:Provider Instructions for Treatment How to access health informa tion online Indication:Nonsmoker Start:05-Jun-2019 Instruction Type:Patient Education How to access health informa tion online - Detail Indication:Nonsmoker Start:05-Jun-2019 Instruction Type:Patient Education Patient Instructions Indication:Nonsmoker Start:05-Jun-2019 Instruction Type:Provider Instructions for Treatment How to access health informa tion online Indication:Nonsmoker Start:24-Feb-2019 Instruction Type:Patient Education How to access health informa tion online - Detail Indication:Nonsmoker Start:24-Feb-2019 Instruction Type:Patient Education Patient Instructions Indication:BMI 30.0-30.9,adult Start:24-Feb-2019 Instruction Type:Provider Instructions for Treatment How to access health informa tion online Indication:BMI 30.0-30.9,adult Start:06-May-2018 Instruction Type:Patient Education How to access health informa tion online - Detail Indication:BMI 30.0-30.9,adult Start:06-May-2018 Instruction Type:Patient Education Patient Instructions Indication:Nonsmoker Start:06-May-2018 Instruction Type:Provider Instructions for Treatment How to access health informa tion online Indication:Nonsmoker Start:15-Apr-2018 Instruction Type:Patient Education How to access health informa tion online - Detail Indication:Nonsmoker Start:15-Apr-2018 Instruction Type:Patient Education Patient Instructions Indication:Nonsmoker Start:15-Apr-2018 Instruction Type:Provider Instructions for Treatment Patient Instructions Indication:BMI 29.0-29.9,adult Start:03-Feb-2018 Instruction Type:Provider Instructions for Treatment How to access health informa tion online Indication:Encounter for gynecological examination without abnormal finding Start:03-Feb-2018 Instruction Type:Patient Education How to access health informa tion online - Detail Indication:Encounter for gynecological examination without abnormal finding Start:03-Feb-2018 Instruction Type:Patient Education Patient Instructions Indication:Encounter for gynecological examination without abnormal finding Start:03-Feb-2018 Instruction Type:Provider Instructions for Treatment How to access health informa tion online Indication:Hypertension, benign Start:21-Jan-2018 Instruction Type:Patient Education How to access health informa tion online - Detail Indication:Hypertension, benign Start:21-Jan-2018 Instruction Type:Patient Education Patient Instructions Indication:Hypertension, benign Start:21-Jan-2018 Instruction Type:Provider Instructions for Treatment DISCONTINUED - Vitamin D Kelvin anguiano ([id number]) Indication:Vitamin D deficiency Start:01-Mar-2017 Instruction Type:Patient Education DISCONTINUED - METABOLIC CAREY EL, COMPREHENSIVE ([id number]) Indication:Hypertension, benign Start:01-Mar-2017 Instruction Type:Patient Education How to access health informa tion online Indication:UTI symptoms Start:01-Mar-2017 Instruction Type:Patient Education How to access health informa tion online - Detail Indication:UTI symptoms Start:01-Mar-2017 Instruction Type:Patient Education Patient Instructions Indication:UTI symptoms Start:01-Mar-2017 Instruction Type:Provider Instructions for Treatment How to access health informa tion online Indication:Neck pain on left side Start:08-Dec-2016 Instruction Type:Patient Education How to access health informa tion online - Detail Indication:Neck pain on left side Start:08-Dec-2016 Instruction Type:Patient Education Patient Instructions Indication:Neck pain on left side Start:08-Dec-2016 Instruction Type:Provider Instructions for Treatment How to access health informa tion online Indication:Encounter for pre-employment examination Start:06-Mar-2015 Instruction Type:Patient Education How to access health informa tion online - Detail Indication:Encounter for pre-employment examination Start:06-Mar-2015 Instruction Type:Patient Education Patient Instructions Indication:Encounter for pre-employment examination Start:06-Mar-2015 Instruction Type:Provider Instructions for Treatment Patient Instructions Indication:Other abnormal finding of urine Start:30-Mar-2014 Instruction Type:Provider Instructions for Treatment How to access health informa tion online Indication:Hypertension, benign Start:02-Feb-2014 Instruction Type:Patient Education How to access health informa tion online - Detail Indication:Hypertension, benign Start:02-Feb-2014 Instruction Type:Patient Education Patient Instructions Indication:Hypertension, benign Start:02-Feb-2014 Instruction Type:Provider Instructions for Treatment Patient Instructions Indication:Hypertension, benign Start:27-Oct-2013 Instruction Type:Provider Instructions for Treatment Patient Instructions Indication:Hypertension, benign Start:03-Jul-2013 Instruction Type:Provider Instructions for Treatment Patient Instructions Indication:Hypoalbuminemia Start:29-Mar-2013 Instruction Type:Provider Instructions for Treatment [facility] Work Phone: Instructions* Name Dates Details Patient Instructions Indication:BMI 30.0-30.9,adult Start:19-Feb-2023 Instruction Type:Provider Instructions for Treatment How to Access Health Informa tion Online using Patient Portal and [employer]rd [employer] Apps Indication:BMI 30.0-30.9,adult Start:19-Feb-2023 Instruction Type:Patient Education Patient Instructions Indication:BMI 28.0-28.9,adult Start:28-Aug-2022 Instruction Type:Provider Instructions for Treatment How to Access Health Informa tion Online using Patient Portal and [employer]rd [employer] Apps Indication:BMI 28.0-28.9,adult Start:28-Aug-2022 Instruction Type:Patient Education Patient Instructions Indication:BMI 29.0-29.9,adult Start:20-Feb-2022 Instruction Type:Provider Instructions for Treatment How to Access Health Informa tion Online using Patient Portal and [employer]rd [employer] Apps Indication:BMI 29.0-29.9,adult Start:20-Feb-2022 Instruction Type:Patient Education Patient Instructions Indication:BMI 30.0-30.9,adult Start:23-Jan-2022 Instruction Type:Provider Instructions for Treatment How to Access Health Informa tion Online using Patient Portal and [employer]rd [employer] Apps Indication:BMI 30.0-30.9,adult Start:23-Jan-2022 Instruction Type:Patient Education Patient Instructions Indication:Hypokalemia (Renamed from Decreased potassium in the blood) Start:31-Dec-2021 Instruction Type:Provider Instructions for Treatment How to Access Health Informa tion Online using Patient Portal and [employer]rd [employer] Apps Indication:Hypokalemia (Renamed from Decreased potassium in the blood) Start:31-Dec-2021 Instruction Type:Patient Education Patient Instructions Indication:Hypertension, benign Start:16-Dec-2021 Instruction Type:Provider Instructions for Treatment Patient Instructions Indication:Hypertension, benign Start:04-Jul-2021 Instruction Type:Provider Instructions for Treatment How to Access Health Informa tion Online using Patient Portal and [employer]rd [employer] Apps Indication:Hypertension, benign Start:04-Jul-2021 Instruction Type:Patient Education Patient Instructions Indication:Nonsmoker Start:13-May-2021 Instruction Type:Provider Instructions for Treatment How to Access Health Informa tion Online using Patient Portal and [employer]rd [employer] Apps Indication:Nonsmoker Start:13-May-2021 Instruction Type:Patient Education How to Access Health Informa tion Online using Patient Portal and [employer]rd [employer] Apps Indication:Nonsmoker Start:04-Apr-2021 Instruction Type:Patient Education Patient Instructions Indication:Nonsmoker Start:04-Apr-2021 Instruction Type:Provider Instructions for Treatment Patient Instructions Indication:BMI 30.0-30.9,adult Start:21-Mar-2021 Instruction Type:Provider Instructions for Treatment How to Access Health Informa tion Online using Patient Portal and [employer]rd [employer] Apps Indication:BMI 30.0-30.9,adult Start:21-Mar-2021 Instruction Type:Patient Education How to access health informa tion online Indication:Nonsmoker Start:28-May-2020 Instruction Type:Patient Education How to access health informa tion online - Detail Indication:Nonsmoker Start:28-May-2020 Instruction Type:Patient Education Patient Instructions Indication:Nonsmoker Start:28-May-2020 Instruction Type:Provider Instructions for Treatment How to access health informa tion online Indication:Nonsmoker Start:05-Mar-2020 Instruction Type:Patient Education How to access health informa tion online - Detail Indication:Nonsmoker Start:05-Mar-2020 Instruction Type:Patient Education Patient Instructions Indication:Nonsmoker Start:05-Mar-2020 Instruction Type:Provider Instructions for Treatment How to access health informa tion online Indication:Nonsmoker Start:05-Jun-2019 Instruction Type:Patient Education How to access health informa tion online - Detail Indication:Nonsmoker Start:05-Jun-2019 Instruction Type:Patient Education Patient Instructions Indication:Nonsmoker Start:05-Jun-2019 Instruction Type:Provider Instructions for Treatment How to access health informa tion online Indication:Nonsmoker Start:24-Feb-2019 Instruction Type:Patient Education How to access health informa tion online - Detail Indication:Nonsmoker Start:24-Feb-2019 Instruction Type:Patient Education Patient Instructions Indication:BMI 30.0-30.9,adult Start:24-Feb-2019 Instruction Type:Provider Instructions for Treatment How to access health informa tion online Indication:BMI 30.0-30.9,adult Start:06-May-2018 Instruction Type:Patient Education How to access health informa tion online - Detail Indication:BMI 30.0-30.9,adult Start:06-May-2018 Instruction Type:Patient Education Patient Instructions Indication:Nonsmoker Start:06-May-2018 Instruction Type:Provider Instructions for Treatment How to access health informa tion online Indication:Nonsmoker Start:15-Apr-2018 Instruction Type:Patient Education How to access health informa tion online - Detail Indication:Nonsmoker Start:15-Apr-2018 Instruction Type:Patient Education Patient Instructions Indication:Nonsmoker Start:15-Apr-2018 Instruction Type:Provider Instructions for Treatment Patient Instructions Indication:BMI 29.0-29.9,adult Start:03-Feb-2018 Instruction Type:Provider Instructions for Treatment How to access health informa tion online Indication:Encounter for gynecological examination without abnormal finding Start:03-Feb-2018 Instruction Type:Patient Education How to access health informa tion online - Detail Indication:Encounter for gynecological examination without abnormal finding Start:03-Feb-2018 Instruction Type:Patient Education Patient Instructions Indication:Encounter for gynecological examination without abnormal finding Start:03-Feb-2018 Instruction Type:Provider Instructions for Treatment How to access health informa tion online Indication:Hypertension, benign Start:21-Jan-2018 Instruction Type:Patient Education How to access health informa tion online - Detail Indication:Hypertension, benign Start:21-Jan-2018 Instruction Type:Patient Education Patient Instructions Indication:Hypertension, benign Start:21-Jan-2018 Instruction Type:Provider Instructions for Treatment DISCONTINUED - Vitamin D Hyd annmarie (68795) Indication:Vitamin D deficiency Start:01-Mar-2017 Instruction Type:Patient Education DISCONTINUED - METABOLIC CAREY EL, COMPREHENSIVE ([id number]) Indication:Hypertension, benign Start:01-Mar-2017 Instruction Type:Patient Education How to access health informa tion online Indication:UTI symptoms Start:01-Mar-2017 Instruction Type:Patient Education How to access health informa tion online - Detail Indication:UTI symptoms Start:01-Mar-2017 Instruction Type:Patient Education Patient Instructions Indication:UTI symptoms Start:01-Mar-2017 Instruction Type:Provider Instructions for Treatment How to access health informa tion online Indication:Neck pain on left side Start:08-Dec-2016 Instruction Type:Patient Education How to access health informa tion online - Detail Indication:Neck pain on left side Start:08-Dec-2016 Instruction Type:Patient Education Patient Instructions Indication:Neck pain on left side Start:08-Dec-2016 Instruction Type:Provider Instructions for Treatment How to access health informa tion online Indication:Encounter for pre-employment examination Start:06-Mar-2015 Instruction Type:Patient Education How to access health informa tion online - Detail Indication:Encounter for pre-employment examination Start:06-Mar-2015 Instruction Type:Patient Education Patient Instructions Indication:Encounter for pre-employment examination Start:06-Mar-2015 Instruction Type:Provider Instructions for Treatment Patient Instructions Indication:Other abnormal finding of urine Start:30-Mar-2014 Instruction Type:Provider Instructions for Treatment How to access health informa tion online Indication:Hypertension, benign Start:02-Feb-2014 Instruction Type:Patient Education How to access health informa tion online - Detail Indication:Hypertension, benign Start:02-Feb-2014 Instruction Type:Patient Education Patient Instructions Indication:Hypertension, benign Start:02-Feb-2014 Instruction Type:Provider Instructions for Treatment Patient Instructions Indication:Hypertension, benign Start:27-Oct-2013 Instruction Type:Provider Instructions for Treatment Patient Instructions Indication:Hypertension, benign Start:03-Jul-2013 Instruction Type:Provider Instructions for Treatment Patient Instructions Indication:Hypoalbuminemia Start:29-Mar-2013 Instruction Type:Provider Instructions for Treatment [facility] Work Phone: Instructions* Name Dates Details Patient Instructions Indication:BMI 30.0-30.9,adult Start:19-Feb-2023 Instruction Type:Provider Instructions for Treatment How to Access Health Informa tion Online using Patient Portal and [employer]rd [employer] Apps Indication:BMI 30.0-30.9,adult Start:19-Feb-2023 Instruction Type:Patient Education Patient Instructions Indication:BMI 28.0-28.9,adult Start:28-Aug-2022 Instruction Type:Provider Instructions for Treatment How to Access Health Informa tion Online using Patient Portal and [employer]rd [employer] Apps Indication:BMI 28.0-28.9,adult Start:28-Aug-2022 Instruction Type:Patient Education Patient Instructions Indication:BMI 29.0-29.9,adult Start:20-Feb-2022 Instruction Type:Provider Instructions for Treatment How to Access Health Informa tion Online using Patient Portal and [employer]rd [employer] Apps Indication:BMI 29.0-29.9,adult Start:20-Feb-2022 Instruction Type:Patient Education Patient Instructions Indication:BMI 30.0-30.9,adult Start:23-Jan-2022 Instruction Type:Provider Instructions for Treatment How to Access Health Informa tion Online using Patient Portal and [employer]rd [employer] Apps Indication:BMI 30.0-30.9,adult Start:23-Jan-2022 Instruction Type:Patient Education Patient Instructions Indication:Hypokalemia (Renamed from Decreased potassium in the blood) Start:31-Dec-2021 Instruction Type:Provider Instructions for Treatment How to Access Health Informa tion Online using Patient Portal and [employer]rd [employer] Apps Indication:Hypokalemia (Renamed from Decreased potassium in the blood) Start:31-Dec-2021 Instruction Type:Patient Education Patient Instructions Indication:Hypertension, benign Start:16-Dec-2021 Instruction Type:Provider Instructions for Treatment Patient Instructions Indication:Hypertension, benign Start:04-Jul-2021 Instruction Type:Provider Instructions for Treatment How to Access Health Informa tion Online using Patient Portal and [employer]rd [employer] Apps Indication:Hypertension, benign Start:04-Jul-2021 Instruction Type:Patient Education Patient Instructions Indication:Nonsmoker Start:13-May-2021 Instruction Type:Provider Instructions for Treatment How to Access Health Informa tion Online using Patient Portal and [employer] Apps Indication:Nonsmoker Start:13-May-2021 Instruction Type:Patient Education How to Access Health Informa tion Online using Patient Portal and [employer] Apps Indication:Nonsmoker Start:04-Apr-2021 Instruction Type:Patient Education Patient Instructions Indication:Nonsmoker Start:04-Apr-2021 Instruction Type:Provider Instructions for Treatment Patient Instructions Indication:BMI 30.0-30.9,adult Start:21-Mar-2021 Instruction Type:Provider Instructions for Treatment How to Access Health Informa tion Online using Patient Portal and [employer]rd [employer] Apps Indication:BMI 30.0-30.9,adult Start:21-Mar-2021 Instruction Type:Patient Education How to access health informa tion online Indication:Nonsmoker Start:28-May-2020 Instruction Type:Patient Education How to access health informa tion online - Detail Indication:Nonsmoker Start:28-May-2020 Instruction Type:Patient Education Patient Instructions Indication:Nonsmoker Start:28-May-2020 Instruction Type:Provider Instructions for Treatment How to access health informa tion online Indication:Nonsmoker Start:05-Mar-2020 Instruction Type:Patient Education How to access health informa tion online - Detail Indication:Nonsmoker Start:05-Mar-2020 Instruction Type:Patient Education Patient Instructions Indication:Nonsmoker Start:05-Mar-2020 Instruction Type:Provider Instructions for Treatment How to access health informa tion online Indication:Nonsmoker Start:05-Jun-2019 Instruction Type:Patient Education How to access health informa tion online - Detail Indication:Nonsmoker Start:05-Jun-2019 Instruction Type:Patient Education Patient Instructions Indication:Nonsmoker Start:05-Jun-2019 Instruction Type:Provider Instructions for Treatment How to access health informa tion online Indication:Nonsmoker Start:24-Feb-2019 Instruction Type:Patient Education How to access health informa tion online - Detail Indication:Nonsmoker Start:24-Feb-2019 Instruction Type:Patient Education Patient Instructions Indication:BMI 30.0-30.9,adult Start:24-Feb-2019 Instruction Type:Provider Instructions for Treatment How to access health informa tion online Indication:BMI 30.0-30.9,adult Start:06-May-2018 Instruction Type:Patient Education How to access health informa tion online - Detail Indication:BMI 30.0-30.9,adult Start:06-May-2018 Instruction Type:Patient Education Patient Instructions Indication:Nonsmoker Start:06-May-2018 Instruction Type:Provider Instructions for Treatment How to access health informa tion online Indication:Nonsmoker Start:15-Apr-2018 Instruction Type:Patient Education How to access health informa tion online - Detail Indication:Nonsmoker Start:15-Apr-2018 Instruction Type:Patient Education Patient Instructions Indication:Nonsmoker Start:15-Apr-2018 Instruction Type:Provider Instructions for Treatment Patient Instructions Indication:BMI 29.0-29.9,adult Start:03-Feb-2018 Instruction Type:Provider Instructions for Treatment How to access health informa tion online Indication:Encounter for gynecological examination without abnormal finding Start:03-Feb-2018 Instruction Type:Patient Education How to access health informa tion online - Detail Indication:Encounter for gynecological examination without abnormal finding Start:03-Feb-2018 Instruction Type:Patient Education Patient Instructions Indication:Encounter for gynecological examination without abnormal finding Start:03-Feb-2018 Instruction Type:Provider Instructions for Treatment How to access health informa tion online Indication:Hypertension, benign Start:21-Jan-2018 Instruction Type:Patient Education How to access health informa tion online - Detail Indication:Hypertension, benign Start:21-Jan-2018 Instruction Type:Patient Education Patient Instructions Indication:Hypertension, benign Start:21-Jan-2018 Instruction Type:Provider Instructions for Treatment DISCONTINUED - Vitamin D Hyd annmarie (86759) Indication:Vitamin D deficiency Start:01-Mar-2017 Instruction Type:Patient Education DISCONTINUED - METABOLIC CAREY , COMPREHENSIVE ([id number]) Indication:Hypertension, benign Start:01-Mar-2017 Instruction Type:Patient Education How to access health informa tion online Indication:UTI symptoms Start:01-Mar-2017 Instruction Type:Patient Education How to access health informa tion online - Detail Indication:UTI symptoms Start:01-Mar-2017 Instruction Type:Patient Education Patient Instructions Indication:UTI symptoms Start:01-Mar-2017 Instruction Type:Provider Instructions for Treatment How to access health informa tion online Indication:Neck pain on left side Start:08-Dec-2016 Instruction Type:Patient Education How to access health informa tion online - Detail Indication:Neck pain on left side Start:08-Dec-2016 Instruction Type:Patient Education Patient Instructions Indication:Neck pain on left side Start:08-Dec-2016 Instruction Type:Provider Instructions for Treatment How to access health informa tion online Indication:Encounter for pre-employment examination Start:06-Mar-2015 Instruction Type:Patient Education How to access health informa tion online - Detail Indication:Encounter for pre-employment examination Start:06-Mar-2015 Instruction Type:Patient Education Patient Instructions Indication:Encounter for pre-employment examination Start:06-Mar-2015 Instruction Type:Provider Instructions for Treatment Patient Instructions Indication:Other abnormal finding of urine Start:30-Mar-2014 Instruction Type:Provider Instructions for Treatment How to access health informa tion online Indication:Hypertension, benign Start:02-Feb-2014 Instruction Type:Patient Education How to access health informa tion online - Detail Indication:Hypertension, benign Start:02-Feb-2014 Instruction Type:Patient Education Patient Instructions Indication:Hypertension, benign Start:02-Feb-2014 Instruction Type:Provider Instructions for Treatment Patient Instructions Indication:Hypertension, benign Start:27-Oct-2013 Instruction Type:Provider Instructions for Treatment Patient Instructions Indication:Hypertension, benign Start:03-Jul-2013 Instruction Type:Provider Instructions for Treatment Patient Instructions Indication:Hypoalbuminemia Start:29-Mar-2013 Instruction Type:Provider Instructions for Treatment [facility]; [facility] Work Phone: Instructions* Name Dates Details Patient Instructions Indication:BMI 30.0-30.9,adult Start:19-Feb-2023 Instruction Type:Provider Instructions for Treatment How to Access Health Informa tion Online using Patient Portal and [employer]rd [employer] Apps Indication:BMI 30.0-30.9,adult Start:19-Feb-2023 Instruction Type:Patient Education Patient Instructions Indication:BMI 28.0-28.9,adult Start:28-Aug-2022 Instruction Type:Provider Instructions for Treatment How to Access Health Informa tion Online using Patient Portal and [employer] Apps Indication:BMI 28.0-28.9,adult Start:28-Aug-2022 Instruction Type:Patient Education Patient Instructions Indication:BMI 29.0-29.9,adult Start:20-Feb-2022 Instruction Type:Provider Instructions for Treatment How to Access Health Informa tion Online using Patient Portal and [employer] Apps Indication:BMI 29.0-29.9,adult Start:20-Feb-2022 Instruction Type:Patient Education Patient Instructions Indication:BMI 30.0-30.9,adult Start:23-Jan-2022 Instruction Type:Provider Instructions for Treatment How to Access Health Informa tion Online using Patient Portal and [employer] Apps Indication:BMI 30.0-30.9,adult Start:23-Jan-2022 Instruction Type:Patient Education Patient Instructions Indication:Hypokalemia (Renamed from Decreased potassium in the blood) Start:31-Dec-2021 Instruction Type:Provider Instructions for Treatment How to Access Health Informa tion Online using Patient Portal and [employer] Apps Indication:Hypokalemia (Renamed from Decreased potassium in the blood) Start:31-Dec-2021 Instruction Type:Patient Education Patient Instructions Indication:Hypertension, benign Start:16-Dec-2021 Instruction Type:Provider Instructions for Treatment Patient Instructions Indication:Hypertension, benign Start:04-Jul-2021 Instruction Type:Provider Instructions for Treatment How to Access Health Informa tion Online using Patient Portal and [employer] Apps Indication:Hypertension, benign Start:04-Jul-2021 Instruction Type:Patient Education Patient Instructions Indication:Nonsmoker Start:13-May-2021 Instruction Type:Provider Instructions for Treatment How to Access Health Informa tion Online using Patient Portal and [employer] Apps Indication:Nonsmoker Start:13-May-2021 Instruction Type:Patient Education How to Access Health Informa tion Online using Patient Portal and [employer] Apps Indication:Nonsmoker Start:04-Apr-2021 Instruction Type:Patient Education Patient Instructions Indication:Nonsmoker Start:04-Apr-2021 Instruction Type:Provider Instructions for Treatment Patient Instructions Indication:BMI 30.0-30.9,adult Start:21-Mar-2021 Instruction Type:Provider Instructions for Treatment How to Access Health Informa tion Online using Patient Portal and [employer] Apps Indication:BMI 30.0-30.9,adult Start:21-Mar-2021 Instruction Type:Patient Education How to access health informa tion online Indication:Nonsmoker Start:28-May-2020 Instruction Type:Patient Education How to access health informa tion online - Detail Indication:Nonsmoker Start:28-May-2020 Instruction Type:Patient Education Patient Instructions Indication:Nonsmoker Start:28-May-2020 Instruction Type:Provider Instructions for Treatment How to access health informa tion online Indication:Nonsmoker Start:05-Mar-2020 Instruction Type:Patient Education How to access health informa tion online - Detail Indication:Nonsmoker Start:05-Mar-2020 Instruction Type:Patient Education Patient Instructions Indication:Nonsmoker Start:05-Mar-2020 Instruction Type:Provider Instructions for Treatment How to access health informa tion online Indication:Nonsmoker Start:05-Jun-2019 Instruction Type:Patient Education How to access health informa tion online - Detail Indication:Nonsmoker Start:05-Jun-2019 Instruction Type:Patient Education Patient Instructions Indication:Nonsmoker Start:05-Jun-2019 Instruction Type:Provider Instructions for Treatment How to access health informa tion online Indication:Nonsmoker Start:24-Feb-2019 Instruction Type:Patient Education How to access health informa tion online - Detail Indication:Nonsmoker Start:24-Feb-2019 Instruction Type:Patient Education Patient Instructions Indication:BMI 30.0-30.9,adult Start:24-Feb-2019 Instruction Type:Provider Instructions for Treatment How to access health informa tion online Indication:BMI 30.0-30.9,adult Start:06-May-2018 Instruction Type:Patient Education How to access health informa tion online - Detail Indication:BMI 30.0-30.9,adult Start:06-May-2018 Instruction Type:Patient Education Patient Instructions Indication:Nonsmoker Start:06-May-2018 Instruction Type:Provider Instructions for Treatment How to access health informa tion online Indication:Nonsmoker Start:15-Apr-2018 Instruction Type:Patient Education How to access health informa tion online - Detail Indication:Nonsmoker Start:15-Apr-2018 Instruction Type:Patient Education Patient Instructions Indication:Nonsmoker Start:15-Apr-2018 Instruction Type:Provider Instructions for Treatment Patient Instructions Indication:BMI 29.0-29.9,adult Start:03-Feb-2018 Instruction Type:Provider Instructions for Treatment How to access health informa tion online Indication:Encounter for gynecological examination without abnormal finding Start:03-Feb-2018 Instruction Type:Patient Education How to access health informa tion online - Detail Indication:Encounter for gynecological examination without abnormal finding Start:03-Feb-2018 Instruction Type:Patient Education Patient Instructions Indication:Encounter for gynecological examination without abnormal finding Start:03-Feb-2018 Instruction Type:Provider Instructions for Treatment How to access health informa tion online Indication:Hypertension, benign Start:21-Jan-2018 Instruction Type:Patient Education How to access health informa tion online - Detail Indication:Hypertension, benign Start:21-Jan-2018 Instruction Type:Patient Education Patient Instructions Indication:Hypertension, benign Start:21-Jan-2018 Instruction Type:Provider Instructions for Treatment DISCONTINUED - Vitamin D Hyd annmarie ([id number]) Indication:Vitamin D deficiency Start:01-Mar-2017 Instruction Type:Patient Education DISCONTINUED - METABOLIC CAREY EL, COMPREHENSIVE ([id number]) Indication:Hypertension, benign Start:01-Mar-2017 Instruction Type:Patient Education How to access health informa tion online Indication:UTI symptoms Start:01-Mar-2017 Instruction Type:Patient Education How to access health informa tion online - Detail Indication:UTI symptoms Start:01-Mar-2017 Instruction Type:Patient Education Patient Instructions Indication:UTI symptoms Start:01-Mar-2017 Instruction Type:Provider Instructions for Treatment How to access health informa tion online Indication:Neck pain on left side Start:08-Dec-2016 Instruction Type:Patient Education How to access health informa tion online - Detail Indication:Neck pain on left side Start:08-Dec-2016 Instruction Type:Patient Education Patient Instructions Indication:Neck pain on left side Start:08-Dec-2016 Instruction Type:Provider Instructions for Treatment How to access health informa tion online Indication:Encounter for pre-employment examination Start:06-Mar-2015 Instruction Type:Patient Education How to access health informa tion online - Detail Indication:Encounter for pre-employment examination Start:06-Mar-2015 Instruction Type:Patient Education Patient Instructions Indication:Encounter for pre-employment examination Start:06-Mar-2015 Instruction Type:Provider Instructions for Treatment Patient Instructions Indication:Other abnormal finding of urine Start:30-Mar-2014 Instruction Type:Provider Instructions for Treatment How to access health informa tion online Indication:Hypertension, benign Start:02-Feb-2014 Instruction Type:Patient Education How to access health informa tion online - Detail Indication:Hypertension, benign Start:02-Feb-2014 Instruction Type:Patient Education Patient Instructions Indication:Hypertension, benign Start:02-Feb-2014 Instruction Type:Provider Instructions for Treatment Patient Instructions Indication:Hypertension, benign Start:27-Oct-2013 Instruction Type:Provider Instructions for Treatment Patient Instructions Indication:Hypertension, benign Start:03-Jul-2013 Instruction Type:Provider Instructions for Treatment Patient Instructions Indication:Hypoalbuminemia Start:29-Mar-2013 Instruction Type:Provider Instructions for Treatment [facility] Work Phone: Instructions* Name Dates Details Patient Instructions Indication:BMI 30.0-30.9,adult Start:19-Feb-2023 Instruction Type:Provider Instructions for Treatment How to Access Health Informa tion Online using Patient Portal and [employer]rd [employer] Apps Indication:BMI 30.0-30.9,adult Start:19-Feb-2023 Instruction Type:Patient Education Patient Instructions Indication:BMI 28.0-28.9,adult Start:28-Aug-2022 Instruction Type:Provider Instructions for Treatment How to Access Health Informa tion Online using Patient Portal and [employer]rd [employer] Apps Indication:BMI 28.0-28.9,adult Start:28-Aug-2022 Instruction Type:Patient Education Patient Instructions Indication:BMI 29.0-29.9,adult Start:20-Feb-2022 Instruction Type:Provider Instructions for Treatment How to Access Health Informa tion Online using Patient Portal and [employer]rd [employer] Apps Indication:BMI 29.0-29.9,adult Start:20-Feb-2022 Instruction Type:Patient Education Patient Instructions Indication:BMI 30.0-30.9,adult Start:23-Jan-2022 Instruction Type:Provider Instructions for Treatment How to Access Health Informa tion Online using Patient Portal and [employer]rd [employer] Apps Indication:BMI 30.0-30.9,adult Start:23-Jan-2022 Instruction Type:Patient Education Patient Instructions Indication:Hypokalemia (Renamed from Decreased potassium in the blood) Start:31-Dec-2021 Instruction Type:Provider Instructions for Treatment How to Access Health Informa tion Online using Patient Portal and [employer]rd [employer] Apps Indication:Hypokalemia (Renamed from Decreased potassium in the blood) Start:31-Dec-2021 Instruction Type:Patient Education Patient Instructions Indication:Hypertension, benign Start:16-Dec-2021 Instruction Type:Provider Instructions for Treatment Patient Instructions Indication:Hypertension, benign Start:04-Jul-2021 Instruction Type:Provider Instructions for Treatment How to Access Health Informa tion Online using Patient Portal and [employer]rd [employer] Apps Indication:Hypertension, benign Start:04-Jul-2021 Instruction Type:Patient Education Patient Instructions Indication:Nonsmoker Start:13-May-2021 Instruction Type:Provider Instructions for Treatment How to Access Health Informa tion Online using Patient Portal and [employer]rd [employer] Apps Indication:Nonsmoker Start:13-May-2021 Instruction Type:Patient Education How to Access Health Informa tion Online using Patient Portal and [employer] Apps Indication:Nonsmoker Start:04-Apr-2021 Instruction Type:Patient Education Patient Instructions Indication:Nonsmoker Start:04-Apr-2021 Instruction Type:Provider Instructions for Treatment Patient Instructions Indication:BMI 30.0-30.9,adult Start:21-Mar-2021 Instruction Type:Provider Instructions for Treatment How to Access Health Informa tion Online using Patient Portal and [employer]rd [employer] Apps Indication:BMI 30.0-30.9,adult Start:21-Mar-2021 Instruction Type:Patient Education How to access health informa tion online Indication:Nonsmoker Start:28-May-2020 Instruction Type:Patient Education How to access health informa tion online - Detail Indication:Nonsmoker Start:28-May-2020 Instruction Type:Patient Education Patient Instructions Indication:Nonsmoker Start:28-May-2020 Instruction Type:Provider Instructions for Treatment How to access health informa tion online Indication:Nonsmoker Start:05-Mar-2020 Instruction Type:Patient Education How to access health informa tion online - Detail Indication:Nonsmoker Start:05-Mar-2020 Instruction Type:Patient Education Patient Instructions Indication:Nonsmoker Start:05-Mar-2020 Instruction Type:Provider Instructions for Treatment How to access health informa tion online Indication:Nonsmoker Start:05-Jun-2019 Instruction Type:Patient Education How to access health informa tion online - Detail Indication:Nonsmoker Start:05-Jun-2019 Instruction Type:Patient Education Patient Instructions Indication:Nonsmoker Start:05-Jun-2019 Instruction Type:Provider Instructions for Treatment How to access health informa tion online Indication:Nonsmoker Start:24-Feb-2019 Instruction Type:Patient Education How to access health informa tion online - Detail Indication:Nonsmoker Start:24-Feb-2019 Instruction Type:Patient Education Patient Instructions Indication:BMI 30.0-30.9,adult Start:24-Feb-2019 Instruction Type:Provider Instructions for Treatment How to access health informa tion online Indication:BMI 30.0-30.9,adult Start:06-May-2018 Instruction Type:Patient Education How to access health informa tion online - Detail Indication:BMI 30.0-30.9,adult Start:06-May-2018 Instruction Type:Patient Education Patient Instructions Indication:Nonsmoker Start:06-May-2018 Instruction Type:Provider Instructions for Treatment How to access health informa tion online Indication:Nonsmoker Start:15-Apr-2018 Instruction Type:Patient Education How to access health informa tion online - Detail Indication:Nonsmoker Start:15-Apr-2018 Instruction Type:Patient Education Patient Instructions Indication:Nonsmoker Start:15-Apr-2018 Instruction Type:Provider Instructions for Treatment Patient Instructions Indication:BMI 29.0-29.9,adult Start:03-Feb-2018 Instruction Type:Provider Instructions for Treatment How to access health informa tion online Indication:Encounter for gynecological examination without abnormal finding Start:03-Feb-2018 Instruction Type:Patient Education How to access health informa tion online - Detail Indication:Encounter for gynecological examination without abnormal finding Start:03-Feb-2018 Instruction Type:Patient Education Patient Instructions Indication:Encounter for gynecological examination without abnormal finding Start:03-Feb-2018 Instruction Type:Provider Instructions for Treatment How to access health informa tion online Indication:Hypertension, benign Start:21-Jan-2018 Instruction Type:Patient Education How to access health informa tion online - Detail Indication:Hypertension, benign Start:21-Jan-2018 Instruction Type:Patient Education Patient Instructions Indication:Hypertension, benign Start:21-Jan-2018 Instruction Type:Provider Instructions for Treatment DISCONTINUED - Vitamin D Hyd annmarie (81636) Indication:Vitamin D deficiency Start:01-Mar-2017 Instruction Type:Patient Education DISCONTINUED - METABOLIC CAREY EL, COMPREHENSIVE (60650) Indication:Hypertension, benign Start:01-Mar-2017 Instruction Type:Patient Education How to access health informa tion online Indication:UTI symptoms Start:01-Mar-2017 Instruction Type:Patient Education How to access health informa tion online - Detail Indication:UTI symptoms Start:01-Mar-2017 Instruction Type:Patient Education Patient Instructions Indication:UTI symptoms Start:01-Mar-2017 Instruction Type:Provider Instructions for Treatment How to access health informa tion online Indication:Neck pain on left side Start:08-Dec-2016 Instruction Type:Patient Education How to access health informa tion online - Detail Indication:Neck pain on left side Start:08-Dec-2016 Instruction Type:Patient Education Patient Instructions Indication:Neck pain on left side Start:08-Dec-2016 Instruction Type:Provider Instructions for Treatment How to access health informa tion online Indication:Encounter for pre-employment examination Start:06-Mar-2015 Instruction Type:Patient Education How to access health informa tion online - Detail Indication:Encounter for pre-employment examination Start:06-Mar-2015 Instruction Type:Patient Education Patient Instructions Indication:Encounter for pre-employment examination Start:06-Mar-2015 Instruction Type:Provider Instructions for Treatment Patient Instructions Indication:Other abnormal finding of urine Start:30-Mar-2014 Instruction Type:Provider Instructions for Treatment How to access health informa tion online Indication:Hypertension, benign Start:02-Feb-2014 Instruction Type:Patient Education How to access health informa tion online - Detail Indication:Hypertension, benign Start:02-Feb-2014 Instruction Type:Patient Education Patient Instructions Indication:Hypertension, benign Start:02-Feb-2014 Instruction Type:Provider Instructions for Treatment Patient Instructions Indication:Hypertension, benign Start:27-Oct-2013 Instruction Type:Provider Instructions for Treatment Patient Instructions Indication:Hypertension, benign Start:03-Jul-2013 Instruction Type:Provider Instructions for Treatment Patient Instructions Indication:Hypoalbuminemia Start:29-Mar-2013 Instruction Type:Provider Instructions for Treatment [facility] Work Phone: Instructions* Name Dates Details Patient Instructions Indication:BMI 30.0-30.9,adult Start:19-Feb-2023 Instruction Type:Provider Instructions for Treatment How to Access Health Informa tion Online using Patient Portal and [employer] Apps Indication:BMI 30.0-30.9,adult Start:19-Feb-2023 Instruction Type:Patient Education Patient Instructions Indication:BMI 28.0-28.9,adult Start:28-Aug-2022 Instruction Type:Provider Instructions for Treatment How to Access Health Informa tion Online using Patient Portal and [employer]rd [employer] Apps Indication:BMI 28.0-28.9,adult Start:28-Aug-2022 Instruction Type:Patient Education Patient Instructions Indication:BMI 29.0-29.9,adult Start:20-Feb-2022 Instruction Type:Provider Instructions for Treatment How to Access Health Informa tion Online using Patient Portal and [employer]rd [employer] Apps Indication:BMI 29.0-29.9,adult Start:20-Feb-2022 Instruction Type:Patient Education Patient Instructions Indication:BMI 30.0-30.9,adult Start:23-Jan-2022 Instruction Type:Provider Instructions for Treatment How to Access Health Informa tion Online using Patient Portal and [employer]rd [employer] Apps Indication:BMI 30.0-30.9,adult Start:23-Jan-2022 Instruction Type:Patient Education Patient Instructions Indication:Hypokalemia (Renamed from Decreased potassium in the blood) Start:31-Dec-2021 Instruction Type:Provider Instructions for Treatment How to Access Health Informa tion Online using Patient Portal and [employer]rd [employer] Apps Indication:Hypokalemia (Renamed from Decreased potassium in the blood) Start:31-Dec-2021 Instruction Type:Patient Education Patient Instructions Indication:Hypertension, benign Start:16-Dec-2021 Instruction Type:Provider Instructions for Treatment Patient Instructions Indication:Hypertension, benign Start:04-Jul-2021 Instruction Type:Provider Instructions for Treatment How to Access Health Informa tion Online using Patient Portal and [employer]rd [employer] Apps Indication:Hypertension, benign Start:04-Jul-2021 Instruction Type:Patient Education Patient Instructions Indication:Nonsmoker Start:13-May-2021 Instruction Type:Provider Instructions for Treatment How to Access Health Informa tion Online using Patient Portal and [employer]rd [employer] Apps Indication:Nonsmoker Start:13-May-2021 Instruction Type:Patient Education How to Access Health Informa tion Online using Patient Portal and [employer]rd [employer] Apps Indication:Nonsmoker Start:04-Apr-2021 Instruction Type:Patient Education Patient Instructions Indication:Nonsmoker Start:04-Apr-2021 Instruction Type:Provider Instructions for Treatment Patient Instructions Indication:BMI 30.0-30.9,adult Start:21-Mar-2021 Instruction Type:Provider Instructions for Treatment How to Access Health Informa tion Online using Patient Portal and [employer]rd [employer] Apps Indication:BMI 30.0-30.9,adult Start:21-Mar-2021 Instruction Type:Patient Education How to access health informa tion online Indication:Nonsmoker Start:28-May-2020 Instruction Type:Patient Education How to access health informa tion online - Detail Indication:Nonsmoker Start:28-May-2020 Instruction Type:Patient Education Patient Instructions Indication:Nonsmoker Start:28-May-2020 Instruction Type:Provider Instructions for Treatment How to access health informa tion online Indication:Nonsmoker Start:05-Mar-2020 Instruction Type:Patient Education How to access health informa tion online - Detail Indication:Nonsmoker Start:05-Mar-2020 Instruction Type:Patient Education Patient Instructions Indication:Nonsmoker Start:05-Mar-2020 Instruction Type:Provider Instructions for Treatment How to access health informa tion online Indication:Nonsmoker Start:05-Jun-2019 Instruction Type:Patient Education How to access health informa tion online - Detail Indication:Nonsmoker Start:05-Jun-2019 Instruction Type:Patient Education Patient Instructions Indication:Nonsmoker Start:05-Jun-2019 Instruction Type:Provider Instructions for Treatment How to access health informa tion online Indication:Nonsmoker Start:24-Feb-2019 Instruction Type:Patient Education How to access health informa tion online - Detail Indication:Nonsmoker Start:24-Feb-2019 Instruction Type:Patient Education Patient Instructions Indication:BMI 30.0-30.9,adult Start:24-Feb-2019 Instruction Type:Provider Instructions for Treatment How to access health informa tion online Indication:BMI 30.0-30.9,adult Start:06-May-2018 Instruction Type:Patient Education How to access health informa tion online - Detail Indication:BMI 30.0-30.9,adult Start:06-May-2018 Instruction Type:Patient Education Patient Instructions Indication:Nonsmoker Start:06-May-2018 Instruction Type:Provider Instructions for Treatment How to access health informa tion online Indication:Nonsmoker Start:15-Apr-2018 Instruction Type:Patient Education How to access health informa tion online - Detail Indication:Nonsmoker Start:15-Apr-2018 Instruction Type:Patient Education Patient Instructions Indication:Nonsmoker Start:15-Apr-2018 Instruction Type:Provider Instructions for Treatment Patient Instructions Indication:BMI 29.0-29.9,adult Start:03-Feb-2018 Instruction Type:Provider Instructions for Treatment How to access health informa tion online Indication:Encounter for gynecological examination without abnormal finding Start:03-Feb-2018 Instruction Type:Patient Education How to access health informa tion online - Detail Indication:Encounter for gynecological examination without abnormal finding Start:03-Feb-2018 Instruction Type:Patient Education Patient Instructions Indication:Encounter for gynecological examination without abnormal finding Start:03-Feb-2018 Instruction Type:Provider Instructions for Treatment How to access health informa tion online Indication:Hypertension, benign Start:21-Jan-2018 Instruction Type:Patient Education How to access health informa tion online - Detail Indication:Hypertension, benign Start:21-Jan-2018 Instruction Type:Patient Education Patient Instructions Indication:Hypertension, benign Start:21-Jan-2018 Instruction Type:Provider Instructions for Treatment DISCONTINUED - Vitamin D Hyd annmarie (57855) Indication:Vitamin D deficiency Start:01-Mar-2017 Instruction Type:Patient Education DISCONTINUED - METABOLIC CAREY EL, COMPREHENSIVE (45874) Indication:Hypertension, benign Start:01-Mar-2017 Instruction Type:Patient Education How to access health informa tion online Indication:UTI symptoms Start:01-Mar-2017 Instruction Type:Patient Education How to access health informa tion online - Detail Indication:UTI symptoms Start:01-Mar-2017 Instruction Type:Patient Education Patient Instructions Indication:UTI symptoms Start:01-Mar-2017 Instruction Type:Provider Instructions for Treatment How to access health informa tion online Indication:Neck pain on left side Start:08-Dec-2016 Instruction Type:Patient Education How to access health informa tion online - Detail Indication:Neck pain on left side Start:08-Dec-2016 Instruction Type:Patient Education Patient Instructions Indication:Neck pain on left side Start:08-Dec-2016 Instruction Type:Provider Instructions for Treatment How to access health informa tion online Indication:Encounter for pre-employment examination Start:06-Mar-2015 Instruction Type:Patient Education How to access health informa tion online - Detail Indication:Encounter for pre-employment examination Start:06-Mar-2015 Instruction Type:Patient Education Patient Instructions Indication:Encounter for pre-employment examination Start:06-Mar-2015 Instruction Type:Provider Instructions for Treatment Patient Instructions Indication:Other abnormal finding of urine Start:30-Mar-2014 Instruction Type:Provider Instructions for Treatment How to access health informa tion online Indication:Hypertension, benign Start:02-Feb-2014 Instruction Type:Patient Education How to access health informa tion online - Detail Indication:Hypertension, benign Start:02-Feb-2014 Instruction Type:Patient Education Patient Instructions Indication:Hypertension, benign Start:02-Feb-2014 Instruction Type:Provider Instructions for Treatment Patient Instructions Indication:Hypertension, benign Start:27-Oct-2013 Instruction Type:Provider Instructions for Treatment Patient Instructions Indication:Hypertension, benign Start:03-Jul-2013 Instruction Type:Provider Instructions for Treatment Patient Instructions Indication:Hypoalbuminemia Start:29-Mar-2013 Instruction Type:Provider Instructions for Treatment [facility] Work Phone: reason for referral (narrative)* Outpatient Procedure (Routine) - Authorized Specialty Diagnoses / Procedures Referred By Contac t Referred To [facility] [place] Diagnoses Aortic valve disorder Procedures ECG COMPLETE ECG ROUTINE ECG W/LEAST 12 LDS W/I&R Ranjit Roque MD [address] [place] [address] [place] [address] Referral ID Status Reason Start Date Expiration Date Visits Requested Visits Authorized [id number] Authorized Auto-Generat ed Referral 06/25/2022 06/25/2023 1 1 * Outpatient Procedure (Routine) - Authorized Specialty Diagnoses / Procedures Referred By Contac t Referred To [facility] Diagnoses Aortic valve disorder Procedures ECHO ECHO TTHRC R-T 2D W/WOM-MODE COMPL SPEC&COLR D Ranjit Roque MD [address] [place] [address] [place] [address] Referral ID Status Reason Start Date Expiration Date Visits Requested Visits Authorized [id number] Authorized Auto-Generat ed Referral 06/25/2022 06/25/2023 1 [facility]No reason for referral [facility] Work [facility]: Instructions Name Dates Details Nonsmoker : How to access he alth information online Indication:Nonsmoker Nonsmoker : How to access he alth information online - Detail Indication:Nonsmoker Nonsmoker : Patient Instruct ions Indication:Nonsmoker BMI 29.0-29.9,adult : Patien t Instructions Indication:BMI 29.0-29.9,adult Encounter for gynecological examination without abnormal finding : How to access health information online Indication:Encounter for gynecological examination without abnormal finding Encounter for gynecological examination without abnormal finding : How to access health information online - Detail Indication:Encounter for gynecological examination without abnormal finding Encounter for gynecological examination without abnormal finding : Patient Instructions Indication:Encounter for gynecological examination without abnormal finding Hypertension, benign : How t o access health information online Indication:Hypertension, benign Hypertension, benign : How t o access health information online - Detail Indication:Hypertension, benign Hypertension, benign : Patie nt Instructions Indication:Hypertension, benign Vitamin D deficiency : DISCO NTINUED - Vitamin D Hydroxy (36786) Indication:Vitamin D deficiency Hypertension, benign : DISCO NTINUED - METABOLIC PANEL, COMPREHENSIVE (46016) Indication:Hypertension, benign UTI symptoms : How to access health information online Indication:UTI symptoms UTI symptoms : How to access health information online - Detail Indication:UTI symptoms UTI symptoms : Patient Instr uctions Indication:UTI symptoms Neck pain on left side : How to access health information online Indication:Neck pain on left side Neck pain on left side : How to access health information online - Detail Indication:Neck pain on left side Neck pain on left side : Pat ient Instructions Indication:Neck pain on left side Encounter for pre-employment examination : How to access health information online Indication:Encounter for pre-employment examination Encounter for pre-employment examination : How to access health information online - Detail Indication:Encounter for pre-employment examination Encounter for pre-employment examination : Patient Instructions Indication:Encounter for pre-employment examination Other abnormal finding of ur ine : Patient Instructions Indication:Other abnormal finding of urine Hypoalbuminemia : Patient In structions Indication:Hypoalbuminemia Name Dates Details BMI 30.0-30.9,adult : How to access health information online Indication:BMI 30.0-30.9,adult BMI 30.0-30.9,adult : How to access health information online - Detail Indication:BMI 30.0-30.9,adult Nonsmoker : Patient Instruct ions Indication:Nonsmoker Nonsmoker : How to access he alth information online Indication:Nonsmoker Nonsmoker : How to access he alth information online - Detail Indication:Nonsmoker BMI 29.0-29.9,adult : Patien t Instructions Indication:BMI 29.0-29.9,adult Encounter for gynecological examination without abnormal finding : How to access health information online Indication:Encounter for gynecological examination without abnormal finding Encounter for gynecological examination without abnormal finding : How to access health information online - Detail Indication:Encounter for gynecological examination without abnormal finding Encounter for gynecological examination without abnormal finding : Patient Instructions Indication:Encounter for gynecological examination without abnormal finding Hypertension, benign : How t o access health information online Indication:Hypertension, benign Hypertension, benign : How t o access health information online - Detail Indication:Hypertension, benign Hypertension, benign : Patie nt Instructions Indication:Hypertension, benign Vitamin D deficiency : DISCO NTINUED - Vitamin D Hydroxy (50979) Indication:Vitamin D deficiency Hypertension, benign : DISCO NTINUED - METABOLIC PANEL, COMPREHENSIVE (35498) Indication:Hypertension, benign UTI symptoms : How to access health information online Indication:UTI symptoms UTI symptoms : How to access health information online - Detail Indication:UTI symptoms UTI symptoms : Patient Instr uctions Indication:UTI symptoms Neck pain on left side : How to access health information online Indication:Neck pain on left side Neck pain on left side : How to access health information online - Detail Indication:Neck pain on left side Neck pain on left side : Pat ient Instructions Indication:Neck pain on left side Encounter for pre-employment examination : How to access health information online Indication:Encounter for pre-employment examination Encounter for pre-employment examination : How to access health information online - Detail Indication:Encounter for pre-employment examination Encounter for pre-employment examination : Patient Instructions Indication:Encounter for pre-employment examination Other abnormal finding of ur ine : Patient Instructions Indication:Other abnormal finding of urine Hypoalbuminemia : Patient In structions Indication:Hypoalbuminemia Name Dates Details BMI 30.0-30.9,adult : How to access health information online Indication:BMI 30.0-30.9,adult BMI 30.0-30.9,adult : How to access health information online - Detail Indication:BMI 30.0-30.9,adult Nonsmoker : Patient Instruct ions Indication:Nonsmoker Nonsmoker : How to access he alth information online Indication:Nonsmoker Nonsmoker : How to access he alth information online - Detail Indication:Nonsmoker BMI 29.0-29.9,adult : Patien t Instructions Indication:BMI 29.0-29.9,adult Encounter for gynecological examination without abnormal finding : How to access health information online Indication:Encounter for gynecological examination without abnormal finding Encounter for gynecological examination without abnormal finding : How to access health information online - Detail Indication:Encounter for gynecological examination without abnormal finding Encounter for gynecological examination without abnormal finding : Patient Instructions Indication:Encounter for gynecological examination without abnormal finding Hypertension, benign : How t o access health information online Indication:Hypertension, benign Hypertension, benign : How t o access health information online - Detail Indication:Hypertension, benign Hypertension, benign : Patie nt Instructions Indication:Hypertension, benign Vitamin D deficiency : DISCO NTINUED - Vitamin D Hydroxy (18097) Indication:Vitamin D deficiency Hypertension, benign : DISCO NTINUED - METABOLIC PANEL, COMPREHENSIVE (28671) Indication:Hypertension, benign UTI symptoms : How to access health information online Indication:UTI symptoms UTI symptoms : How to access health information online - Detail Indication:UTI symptoms UTI symptoms : Patient Instr uctions Indication:UTI symptoms Neck pain on left side : How to access health information online Indication:Neck pain on left side Neck pain on left side : How to access health information online - Detail Indication:Neck pain on left side Neck pain on left side : Pat ient Instructions Indication:Neck pain on left side Encounter for pre-employment examination : How to access health information online Indication:Encounter for pre-employment examination Encounter for pre-employment examination : How to access health information online - Detail Indication:Encounter for pre-employment examination Encounter for pre-employment examination : Patient Instructions Indication:Encounter for pre-employment examination Other abnormal finding of ur ine : Patient Instructions Indication:Other abnormal finding of urine Hypoalbuminemia : Patient In structions Indication:Hypoalbuminemia Name Dates Details BMI 30.0-30.9,adult : How to access health information online Indication:BMI 30.0-30.9,adult BMI 30.0-30.9,adult : How to access health information online - Detail Indication:BMI 30.0-30.9,adult Nonsmoker : Patient Instruct ions Indication:Nonsmoker Nonsmoker : How to access he alth information online Indication:Nonsmoker Nonsmoker : How to access he alth information online - Detail Indication:Nonsmoker BMI 29.0-29.9,adult : Patien t Instructions Indication:BMI 29.0-29.9,adult Encounter for gynecological examination without abnormal finding : How to access health information online Indication:Encounter for gynecological examination without abnormal finding Encounter for gynecological examination without abnormal finding : How to access health information online - Detail Indication:Encounter for gynecological examination without abnormal finding Encounter for gynecological examination without abnormal finding : Patient Instructions Indication:Encounter for gynecological examination without abnormal finding Hypertension, benign : How t o access health information online Indication:Hypertension, benign Hypertension, benign : How t o access health information online - Detail Indication:Hypertension, benign Hypertension, benign : Patie nt Instructions Indication:Hypertension, benign Vitamin D deficiency : DISCO NTINUED - Vitamin D Hydroxy (97288) Indication:Vitamin D deficiency Hypertension, benign : DISCO NTINUED - METABOLIC PANEL, COMPREHENSIVE (27872) Indication:Hypertension, benign UTI symptoms : How to access health information online Indication:UTI symptoms UTI symptoms : How to access health information online - Detail Indication:UTI symptoms UTI symptoms : Patient Instr uctions Indication:UTI symptoms Neck pain on left side : How to access health information online Indication:Neck pain on left side Neck pain on left side : How to access health information online - Detail Indication:Neck pain on left side Neck pain on left side : Pat ient Instructions Indication:Neck pain on left side Encounter for pre-employment examination : How to access health information online Indication:Encounter for pre-employment examination Encounter for pre-employment examination : How to access health information online - Detail Indication:Encounter for pre-employment examination Encounter for pre-employment examination : Patient Instructions Indication:Encounter for pre-employment examination Other abnormal finding of ur ine : Patient Instructions Indication:Other abnormal finding of urine Hypoalbuminemia : Patient In structions Indication:Hypoalbuminemia Name Dates Details BMI 30.0-30.9,adult : How to access health information online Indication:BMI 30.0-30.9,adult BMI 30.0-30.9,adult : How to access health information online - Detail Indication:BMI 30.0-30.9,adult Nonsmoker : Patient Instruct ions Indication:Nonsmoker Nonsmoker : How to access he alth information online Indication:Nonsmoker Nonsmoker : How to access he alth information online - Detail Indication:Nonsmoker BMI 29.0-29.9,adult : Patien t Instructions Indication:BMI 29.0-29.9,adult Encounter for gynecological examination without abnormal finding : How to access health information online Indication:Encounter for gynecological examination without abnormal finding Encounter for gynecological examination without abnormal finding : How to access health information online - Detail Indication:Encounter for gynecological examination without abnormal finding Encounter for gynecological examination without abnormal finding : Patient Instructions Indication:Encounter for gynecological examination without abnormal finding Hypertension, benign : How t o access health information online Indication:Hypertension, benign Hypertension, benign : How t o access health information online - Detail Indication:Hypertension, benign Hypertension, benign : Patie nt Instructions Indication:Hypertension, benign Vitamin D deficiency : DISCO NTINUED - Vitamin D Hydroxy (52313) Indication:Vitamin D deficiency Hypertension, benign : DISCO NTINUED - METABOLIC PANEL, COMPREHENSIVE (87120) Indication:Hypertension, benign UTI symptoms : How to access health information online Indication:UTI symptoms UTI symptoms : How to access health information online - Detail Indication:UTI symptoms UTI symptoms : Patient Instr uctions Indication:UTI symptoms Neck pain on left side : How to access health information online Indication:Neck pain on left side Neck pain on left side : How to access health information online - Detail Indication:Neck pain on left side Neck pain on left side : Pat ient Instructions Indication:Neck pain on left side Encounter for pre-employment examination : How to access health information online Indication:Encounter for pre-employment examination Encounter for pre-employment examination : How to access health information online - Detail Indication:Encounter for pre-employment examination Encounter for pre-employment examination : Patient Instructions Indication:Encounter for pre-employment examination Other abnormal finding of ur ine : Patient Instructions Indication:Other abnormal finding of urine Hypoalbuminemia : Patient In structions Indication:Hypoalbuminemia Name Dates Details How to access health informa tion online Indication:BMI 30.0-30.9,adult Start:06-May-2018 Instruction Type:Patient Education How to access health informa tion online - Detail Indication:BMI 30.0-30.9,adult Start:06-May-2018 Instruction Type:Patient Education Patient Instructions Indication:Nonsmoker Start:06-May-2018 Instruction Type:Provider Instructions for Treatment How to access health informa tion online Indication:Nonsmoker Start:15-Apr-2018 Instruction Type:Patient Education How to access health informa tion online - Detail Indication:Nonsmoker Start:15-Apr-2018 Instruction Type:Patient Education Patient Instructions Indication:Nonsmoker Start:15-Apr-2018 Instruction Type:Provider Instructions for Treatment Patient Instructions Indication:BMI 29.0-29.9,adult Start:03-Feb-2018 Instruction Type:Provider Instructions for Treatment How to access health informa tion online Indication:Encounter for gynecological examination without abnormal finding Start:03-Feb-2018 Instruction Type:Patient Education How to access health informa tion online - Detail Indication:Encounter for gynecological examination without abnormal finding Start:03-Feb-2018 Instruction Type:Patient Education Patient Instructions Indication:Encounter for gynecological examination without abnormal finding Start:03-Feb-2018 Instruction Type:Provider Instructions for Treatment How to access health informa tion online Indication:Hypertension, benign Start:21-Jan-2018 Instruction Type:Patient Education How to access health informa tion online - Detail Indication:Hypertension, benign Start:21-Jan-2018 Instruction Type:Patient Education Patient Instructions Indication:Hypertension, benign Start:21-Jan-2018 Instruction Type:Provider Instructions for Treatment DISCONTINUED - Vitamin D Hyd annmarie ([id number]) Indication:Vitamin D deficiency Start:01-Mar-2017 Instruction Type:Patient Education DISCONTINUED - METABOLIC CAREY EL, COMPREHENSIVE (19783) Indication:Hypertension, benign Start:01-Mar-2017 Instruction Type:Patient Education How to access health informa tion online Indication:UTI symptoms Start:01-Mar-2017 Instruction Type:Patient Education How to access health informa tion online - Detail Indication:UTI symptoms Start:01-Mar-2017 Instruction Type:Patient Education Patient Instructions Indication:UTI symptoms Start:01-Mar-2017 Instruction Type:Provider Instructions for Treatment How to access health informa tion online Indication:Neck pain on left side Start:08-Dec-2016 Instruction Type:Patient Education How to access health informa tion online - Detail Indication:Neck pain on left side Start:08-Dec-2016 Instruction Type:Patient Education Patient Instructions Indication:Neck pain on left side Start:08-Dec-2016 Instruction Type:Provider Instructions for Treatment How to access health informa tion online Indication:Encounter for pre-employment examination Start:06-Mar-2015 Instruction Type:Patient Education How to access health informa tion online - Detail Indication:Encounter for pre-employment examination Start:06-Mar-2015 Instruction Type:Patient Education Patient Instructions Indication:Encounter for pre-employment examination Start:06-Mar-2015 Instruction Type:Provider Instructions for Treatment Patient Instructions Indication:Other abnormal finding of urine Start:30-Mar-2014 Instruction Type:Provider Instructions for Treatment How to access health informa tion online Indication:Hypertension, benign Start:02-Feb-2014 Instruction Type:Patient Education How to access health informa tion online - Detail Indication:Hypertension, benign Start:02-Feb-2014 Instruction Type:Patient Education Patient Instructions Indication:Hypertension, benign Start:02-Feb-2014 Instruction Type:Provider Instructions for Treatment Patient Instructions Indication:Hypertension, benign Start:27-Oct-2013 Instruction Type:Provider Instructions for Treatment Patient Instructions Indication:Hypertension, benign Start:03-Jul-2013 Instruction Type:Provider Instructions for Treatment Patient Instructions Indication:Hypoalbuminemia Start:29-Mar-2013 Instruction Type:Provider Instructions for Treatment Name Dates Details How to access health informa tion online Indication:BMI 30.0-30.9,adult Start:06-May-2018 Instruction Type:Patient Education How to access health informa tion online - Detail Indication:BMI 30.0-30.9,adult Start:06-May-2018 Instruction Type:Patient Education Patient Instructions Indication:Nonsmoker Start:06-May-2018 Instruction Type:Provider Instructions for Treatment How to access health informa tion online Indication:Nonsmoker Start:15-Apr-2018 Instruction Type:Patient Education How to access health informa tion online - Detail Indication:Nonsmoker Start:15-Apr-2018 Instruction Type:Patient Education Patient Instructions Indication:Nonsmoker Start:15-Apr-2018 Instruction Type:Provider Instructions for Treatment Patient Instructions Indication:BMI 29.0-29.9,adult Start:03-Feb-2018 Instruction Type:Provider Instructions for Treatment How to access health informa tion online Indication:Encounter for gynecological examination without abnormal finding Start:03-Feb-2018 Instruction Type:Patient Education How to access health informa tion online - Detail Indication:Encounter for gynecological examination without abnormal finding Start:03-Feb-2018 Instruction Type:Patient Education Patient Instructions Indication:Encounter for gynecological examination without abnormal finding Start:03-Feb-2018 Instruction Type:Provider Instructions for Treatment How to access health informa tion online Indication:Hypertension, benign Start:21-Jan-2018 Instruction Type:Patient Education How to access health informa tion online - Detail Indication:Hypertension, benign Start:21-Jan-2018 Instruction Type:Patient Education Patient Instructions Indication:Hypertension, benign Start:21-Jan-2018 Instruction Type:Provider Instructions for Treatment DISCONTINUED - Vitamin D Hyd annmarie (95412) Indication:Vitamin D deficiency Start:01-Mar-2017 Instruction Type:Patient Education DISCONTINUED - METABOLIC CAREY EL, COMPREHENSIVE ([id number]) Indication:Hypertension, benign Start:01-Mar-2017 Instruction Type:Patient Education How to access health informa tion online Indication:UTI symptoms Start:01-Mar-2017 Instruction Type:Patient Education How to access health informa tion online - Detail Indication:UTI symptoms Start:01-Mar-2017 Instruction Type:Patient Education Patient Instructions Indication:UTI symptoms Start:01-Mar-2017 Instruction Type:Provider Instructions for Treatment How to access health informa tion online Indication:Neck pain on left side Start:08-Dec-2016 Instruction Type:Patient Education How to access health informa tion online - Detail Indication:Neck pain on left side Start:08-Dec-2016 Instruction Type:Patient Education Patient Instructions Indication:Neck pain on left side Start:08-Dec-2016 Instruction Type:Provider Instructions for Treatment How to access health informa tion online Indication:Encounter for pre-employment examination Start:06-Mar-2015 Instruction Type:Patient Education How to access health informa tion online - Detail Indication:Encounter for pre-employment examination Start:06-Mar-2015 Instruction Type:Patient Education Patient Instructions Indication:Encounter for pre-employment examination Start:06-Mar-2015 Instruction Type:Provider Instructions for Treatment Patient Instructions Indication:Other abnormal finding of urine Start:30-Mar-2014 Instruction Type:Provider Instructions for Treatment How to access health informa tion online Indication:Hypertension, benign Start:02-Feb-2014 Instruction Type:Patient Education How to access health informa tion online - Detail Indication:Hypertension, benign Start:02-Feb-2014 Instruction Type:Patient Education Patient Instructions Indication:Hypertension, benign Start:02-Feb-2014 Instruction Type:Provider Instructions for Treatment Patient Instructions Indication:Hypertension, benign Start:27-Oct-2013 Instruction Type:Provider Instructions for Treatment Patient Instructions Indication:Hypertension, benign Start:03-Jul-2013 Instruction Type:Provider Instructions for Treatment Patient Instructions Indication:Hypoalbuminemia Start:29-Mar-2013 Instruction Type:Provider Instructions for Treatment Name Dates Details How to access health informa tion online Indication:BMI 30.0-30.9,adult Start:06-May-2018 Instruction Type:Patient Education How to access health informa tion online - Detail Indication:BMI 30.0-30.9,adult Start:06-May-2018 Instruction Type:Patient Education Patient Instructions Indication:Nonsmoker Start:06-May-2018 Instruction Type:Provider Instructions for Treatment How to access health informa tion online Indication:Nonsmoker Start:15-Apr-2018 Instruction Type:Patient Education How to access health informa tion online - Detail Indication:Nonsmoker Start:15-Apr-2018 Instruction Type:Patient Education Patient Instructions Indication:Nonsmoker Start:15-Apr-2018 Instruction Type:Provider Instructions for Treatment Patient Instructions Indication:BMI 29.0-29.9,adult Start:03-Feb-2018 Instruction Type:Provider Instructions for Treatment How to access health informa tion online Indication:Encounter for gynecological examination without abnormal finding Start:03-Feb-2018 Instruction Type:Patient Education How to access health informa tion online - Detail Indication:Encounter for gynecological examination without abnormal finding Start:03-Feb-2018 Instruction Type:Patient Education Patient Instructions Indication:Encounter for gynecological examination without abnormal finding Start:03-Feb-2018 Instruction Type:Provider Instructions for Treatment How to access health informa tion online Indication:Hypertension, benign Start:21-Jan-2018 Instruction Type:Patient Education How to access health informa tion online - Detail Indication:Hypertension, benign Start:21-Jan-2018 Instruction Type:Patient Education Patient Instructions Indication:Hypertension, benign Start:21-Jan-2018 Instruction Type:Provider Instructions for Treatment DISCONTINUED - Vitamin D Hyd annmarie (34839) Indication:Vitamin D deficiency Start:01-Mar-2017 Instruction Type:Patient Education DISCONTINUED - METABOLIC CAREY EL, COMPREHENSIVE ([id number]) Indication:Hypertension, benign Start:01-Mar-2017 Instruction Type:Patient Education How to access health informa tion online Indication:UTI symptoms Start:01-Mar-2017 Instruction Type:Patient Education How to access health informa tion online - Detail Indication:UTI symptoms Start:01-Mar-2017 Instruction Type:Patient Education Patient Instructions Indication:UTI symptoms Start:01-Mar-2017 Instruction Type:Provider Instructions for Treatment How to access health informa tion online Indication:Neck pain on left side Start:08-Dec-2016 Instruction Type:Patient Education How to access health informa tion online - Detail Indication:Neck pain on left side Start:08-Dec-2016 Instruction Type:Patient Education Patient Instructions Indication:Neck pain on left side Start:08-Dec-2016 Instruction Type:Provider Instructions for Treatment How to access health informa tion online Indication:Encounter for pre-employment examination Start:06-Mar-2015 Instruction Type:Patient Education How to access health informa tion online - Detail Indication:Encounter for pre-employment examination Start:06-Mar-2015 Instruction Type:Patient Education Patient Instructions Indication:Encounter for pre-employment examination Start:06-Mar-2015 Instruction Type:Provider Instructions for Treatment Patient Instructions Indication:Other abnormal finding of urine Start:30-Mar-2014 Instruction Type:Provider Instructions for Treatment How to access health informa tion online Indication:Hypertension, benign Start:02-Feb-2014 Instruction Type:Patient Education How to access health informa tion online - Detail Indication:Hypertension, benign Start:02-Feb-2014 Instruction Type:Patient Education Patient Instructions Indication:Hypertension, benign Start:02-Feb-2014 Instruction Type:Provider Instructions for Treatment Patient Instructions Indication:Hypertension, benign Start:27-Oct-2013 Instruction Type:Provider Instructions for Treatment Patient Instructions Indication:Hypertension, benign Start:03-Jul-2013 Instruction Type:Provider Instructions for Treatment Patient Instructions Indication:Hypoalbuminemia Start:29-Mar-2013 Instruction Type:Provider Instructions for Treatment Name Dates Details How to access health informa tion online Indication:Nonsmoker Start:24-Feb-2019 Instruction Type:Patient Education How to access health informa tion online - Detail Indication:Nonsmoker Start:24-Feb-2019 Instruction Type:Patient Education Patient Instructions Indication:BMI 30.0-30.9,adult Start:24-Feb-2019 Instruction Type:Provider Instructions for Treatment How to access health informa tion online Indication:BMI 30.0-30.9,adult Start:06-May-2018 Instruction Type:Patient Education How to access health informa tion online - Detail Indication:BMI 30.0-30.9,adult Start:06-May-2018 Instruction Type:Patient Education Patient Instructions Indication:Nonsmoker Start:06-May-2018 Instruction Type:Provider Instructions for Treatment How to access health informa tion online Indication:Nonsmoker Start:15-Apr-2018 Instruction Type:Patient Education How to access health informa tion online - Detail Indication:Nonsmoker Start:15-Apr-2018 Instruction Type:Patient Education Patient Instructions Indication:Nonsmoker Start:15-Apr-2018 Instruction Type:Provider Instructions for Treatment Patient Instructions Indication:BMI 29.0-29.9,adult Start:03-Feb-2018 Instruction Type:Provider Instructions for Treatment How to access health informa tion online Indication:Encounter for gynecological examination without abnormal finding Start:03-Feb-2018 Instruction Type:Patient Education How to access health informa tion online - Detail Indication:Encounter for gynecological examination without abnormal finding Start:03-Feb-2018 Instruction Type:Patient Education Patient Instructions Indication:Encounter for gynecological examination without abnormal finding Start:03-Feb-2018 Instruction Type:Provider Instructions for Treatment How to access health informa tion online Indication:Hypertension, benign Start:21-Jan-2018 Instruction Type:Patient Education How to access health informa tion online - Detail Indication:Hypertension, benign Start:21-Jan-2018 Instruction Type:Patient Education Patient Instructions Indication:Hypertension, benign Start:21-Jan-2018 Instruction Type:Provider Instructions for Treatment DISCONTINUED - Vitamin D Hyd annmarie (05863) Indication:Vitamin D deficiency Start:01-Mar-2017 Instruction Type:Patient Education DISCONTINUED - METABOLIC CAREY EL, COMPREHENSIVE ([id number]) Indication:Hypertension, benign Start:01-Mar-2017 Instruction Type:Patient Education How to access health informa tion online Indication:UTI symptoms Start:01-Mar-2017 Instruction Type:Patient Education How to access health informa tion online - Detail Indication:UTI symptoms Start:01-Mar-2017 Instruction Type:Patient Education Patient Instructions Indication:UTI symptoms Start:01-Mar-2017 Instruction Type:Provider Instructions for Treatment How to access health informa tion online Indication:Neck pain on left side Start:08-Dec-2016 Instruction Type:Patient Education How to access health informa tion online - Detail Indication:Neck pain on left side Start:08-Dec-2016 Instruction Type:Patient Education Patient Instructions Indication:Neck pain on left side Start:08-Dec-2016 Instruction Type:Provider Instructions for Treatment How to access health informa tion online Indication:Encounter for pre-employment examination Start:06-Mar-2015 Instruction Type:Patient Education How to access health informa tion online - Detail Indication:Encounter for pre-employment examination Start:06-Mar-2015 Instruction Type:Patient Education Patient Instructions Indication:Encounter for pre-employment examination Start:06-Mar-2015 Instruction Type:Provider Instructions for Treatment Patient Instructions Indication:Other abnormal finding of urine Start:30-Mar-2014 Instruction Type:Provider Instructions for Treatment How to access health informa tion online Indication:Hypertension, benign Start:02-Feb-2014 Instruction Type:Patient Education How to access health informa tion online - Detail Indication:Hypertension, benign Start:02-Feb-2014 Instruction Type:Patient Education Patient Instructions Indication:Hypertension, benign Start:02-Feb-2014 Instruction Type:Provider Instructions for Treatment Patient Instructions Indication:Hypertension, benign Start:27-Oct-2013 Instruction Type:Provider Instructions for Treatment Patient Instructions Indication:Hypertension, benign Start:03-Jul-2013 Instruction Type:Provider Instructions for Treatment Patient Instructions Indication:Hypoalbuminemia Start:29-Mar-2013 Instruction Type:Provider Instructions for Treatment Name Dates Details How to access health informa tion online Indication:Nonsmoker Start:24-Feb-2019 Instruction Type:Patient Education How to access health informa tion online - Detail Indication:Nonsmoker Start:24-Feb-2019 Instruction Type:Patient Education Patient Instructions Indication:BMI 30.0-30.9,adult Start:24-Feb-2019 Instruction Type:Provider Instructions for Treatment How to access health informa tion online Indication:BMI 30.0-30.9,adult Start:06-May-2018 Instruction Type:Patient Education How to access health informa tion online - Detail Indication:BMI 30.0-30.9,adult Start:06-May-2018 Instruction Type:Patient Education Patient Instructions Indication:Nonsmoker Start:06-May-2018 Instruction Type:Provider Instructions for Treatment How to access health informa tion online Indication:Nonsmoker Start:15-Apr-2018 Instruction Type:Patient Education How to access health informa tion online - Detail Indication:Nonsmoker Start:15-Apr-2018 Instruction Type:Patient Education Patient Instructions Indication:Nonsmoker Start:15-Apr-2018 Instruction Type:Provider Instructions for Treatment Patient Instructions Indication:BMI 29.0-29.9,adult Start:03-Feb-2018 Instruction Type:Provider Instructions for Treatment How to access health informa tion online Indication:Encounter for gynecological examination without abnormal finding Start:03-Feb-2018 Instruction Type:Patient Education How to access health informa tion online - Detail Indication:Encounter for gynecological examination without abnormal finding Start:03-Feb-2018 Instruction Type:Patient Education Patient Instructions Indication:Encounter for gynecological examination without abnormal finding Start:03-Feb-2018 Instruction Type:Provider Instructions for Treatment How to access health informa tion online Indication:Hypertension, benign Start:21-Jan-2018 Instruction Type:Patient Education How to access health informa tion online - Detail Indication:Hypertension, benign Start:21-Jan-2018 Instruction Type:Patient Education Patient Instructions Indication:Hypertension, benign Start:21-Jan-2018 Instruction Type:Provider Instructions for Treatment DISCONTINUED - Vitamin D Hyd annmarie (49956) Indication:Vitamin D deficiency Start:01-Mar-2017 Instruction Type:Patient Education DISCONTINUED - METABOLIC CAREY EL, COMPREHENSIVE (76021) Indication:Hypertension, benign Start:01-Mar-2017 Instruction Type:Patient Education How to access health informa tion online Indication:UTI symptoms Start:01-Mar-2017 Instruction Type:Patient Education How to access health informa tion online - Detail Indication:UTI symptoms Start:01-Mar-2017 Instruction Type:Patient Education Patient Instructions Indication:UTI symptoms Start:01-Mar-2017 Instruction Type:Provider Instructions for Treatment How to access health informa tion online Indication:Neck pain on left side Start:08-Dec-2016 Instruction Type:Patient Education How to access health informa tion online - Detail Indication:Neck pain on left side Start:08-Dec-2016 Instruction Type:Patient Education Patient Instructions Indication:Neck pain on left side Start:08-Dec-2016 Instruction Type:Provider Instructions for Treatment How to access health informa tion online Indication:Encounter for pre-employment examination Start:06-Mar-2015 Instruction Type:Patient Education How to access health informa tion online - Detail Indication:Encounter for pre-employment examination Start:06-Mar-2015 Instruction Type:Patient Education Patient Instructions Indication:Encounter for pre-employment examination Start:06-Mar-2015 Instruction Type:Provider Instructions for Treatment Patient Instructions Indication:Other abnormal finding of urine Start:30-Mar-2014 Instruction Type:Provider Instructions for Treatment How to access health informa tion online Indication:Hypertension, benign Start:02-Feb-2014 Instruction Type:Patient Education How to access health informa tion online - Detail Indication:Hypertension, benign Start:02-Feb-2014 Instruction Type:Patient Education Patient Instructions Indication:Hypertension, benign Start:02-Feb-2014 Instruction Type:Provider Instructions for Treatment Patient Instructions Indication:Hypertension, benign Start:27-Oct-2013 Instruction Type:Provider Instructions for Treatment Patient Instructions Indication:Hypertension, benign Start:03-Jul-2013 Instruction Type:Provider Instructions for Treatment Patient Instructions Indication:Hypoalbuminemia Start:29-Mar-2013 Instruction Type:Provider Instructions for Treatment Name Dates Details How to access health informa tion online Indication:Nonsmoker Start:05-Mar-2020 Instruction Type:Patient Education How to access health informa tion online - Detail Indication:Nonsmoker Start:05-Mar-2020 Instruction Type:Patient Education Patient Instructions Indication:Nonsmoker Start:05-Mar-2020 Instruction Type:Provider Instructions for Treatment How to access health informa tion online Indication:Nonsmoker Start:05-Jun-2019 Instruction Type:Patient Education How to access health informa tion online - Detail Indication:Nonsmoker Start:05-Jun-2019 Instruction Type:Patient Education Patient Instructions Indication:Nonsmoker Start:05-Jun-2019 Instruction Type:Provider Instructions for Treatment How to access health informa tion online Indication:Nonsmoker Start:24-Feb-2019 Instruction Type:Patient Education How to access health informa tion online - Detail Indication:Nonsmoker Start:24-Feb-2019 Instruction Type:Patient Education Patient Instructions Indication:BMI 30.0-30.9,adult Start:24-Feb-2019 Instruction Type:Provider Instructions for Treatment How to access health informa tion online Indication:BMI 30.0-30.9,adult Start:06-May-2018 Instruction Type:Patient Education How to access health informa tion online - Detail Indication:BMI 30.0-30.9,adult Start:06-May-2018 Instruction Type:Patient Education Patient Instructions Indication:Nonsmoker Start:06-May-2018 Instruction Type:Provider Instructions for Treatment How to access health informa tion online Indication:Nonsmoker Start:15-Apr-2018 Instruction Type:Patient Education How to access health informa tion online - Detail Indication:Nonsmoker Start:15-Apr-2018 Instruction Type:Patient Education Patient Instructions Indication:Nonsmoker Start:15-Apr-2018 Instruction Type:Provider Instructions for Treatment Patient Instructions Indication:BMI 29.0-29.9,adult Start:03-Feb-2018 Instruction Type:Provider Instructions for Treatment How to access health informa tion online Indication:Encounter for gynecological examination without abnormal finding Start:03-Feb-2018 Instruction Type:Patient Education How to access health informa tion online - Detail Indication:Encounter for gynecological examination without abnormal finding Start:03-Feb-2018 Instruction Type:Patient Education Patient Instructions Indication:Encounter for gynecological examination without abnormal finding Start:03-Feb-2018 Instruction Type:Provider Instructions for Treatment How to access health informa tion online Indication:Hypertension, benign Start:21-Jan-2018 Instruction Type:Patient Education How to access health informa tion online - Detail Indication:Hypertension, benign Start:21-Jan-2018 Instruction Type:Patient Education Patient Instructions Indication:Hypertension, benign Start:21-Jan-2018 Instruction Type:Provider Instructions for Treatment DISCONTINUED - Vitamin D Hyd annmarie (87171) Indication:Vitamin D deficiency Start:01-Mar-2017 Instruction Type:Patient Education DISCONTINUED - METABOLIC CAREY EL, COMPREHENSIVE ([id number]) Indication:Hypertension, benign Start:01-Mar-2017 Instruction Type:Patient Education How to access health informa tion online Indication:UTI symptoms Start:01-Mar-2017 Instruction Type:Patient Education How to access health informa tion online - Detail Indication:UTI symptoms Start:01-Mar-2017 Instruction Type:Patient Education Patient Instructions Indication:UTI symptoms Start:01-Mar-2017 Instruction Type:Provider Instructions for Treatment How to access health informa tion online Indication:Neck pain on left side Start:08-Dec-2016 Instruction Type:Patient Education How to access health informa tion online - Detail Indication:Neck pain on left side Start:08-Dec-2016 Instruction Type:Patient Education Patient Instructions Indication:Neck pain on left side Start:08-Dec-2016 Instruction Type:Provider Instructions for Treatment How to access health informa tion online Indication:Encounter for pre-employment examination Start:06-Mar-2015 Instruction Type:Patient Education How to access health informa tion online - Detail Indication:Encounter for pre-employment examination Start:06-Mar-2015 Instruction Type:Patient Education Patient Instructions Indication:Encounter for pre-employment examination Start:06-Mar-2015 Instruction Type:Provider Instructions for Treatment Patient Instructions Indication:Other abnormal finding of urine Start:30-Mar-2014 Instruction Type:Provider Instructions for Treatment How to access health informa tion online Indication:Hypertension, benign Start:02-Feb-2014 Instruction Type:Patient Education How to access health informa tion online - Detail Indication:Hypertension, benign Start:02-Feb-2014 Instruction Type:Patient Education Patient Instructions Indication:Hypertension, benign Start:02-Feb-2014 Instruction Type:Provider Instructions for Treatment Patient Instructions Indication:Hypertension, benign Start:27-Oct-2013 Instruction Type:Provider Instructions for Treatment Patient Instructions Indication:Hypertension, benign Start:03-Jul-2013 Instruction Type:Provider Instructions for Treatment Patient Instructions Indication:Hypoalbuminemia Start:29-Mar-2013 Instruction Type:Provider Instructions for Treatment Name Dates Details How to access health informa tion online Indication:Nonsmoker Start:05-Mar-2020 Instruction Type:Patient Education How to access health informa tion online - Detail Indication:Nonsmoker Start:05-Mar-2020 Instruction Type:Patient Education Patient Instructions Indication:Nonsmoker Start:05-Mar-2020 Instruction Type:Provider Instructions for Treatment How to access health informa tion online Indication:Nonsmoker Start:05-Jun-2019 Instruction Type:Patient Education How to access health informa tion online - Detail Indication:Nonsmoker Start:05-Jun-2019 Instruction Type:Patient Education Patient Instructions Indication:Nonsmoker Start:05-Jun-2019 Instruction Type:Provider Instructions for Treatment How to access health informa tion online Indication:Nonsmoker Start:24-Feb-2019 Instruction Type:Patient Education How to access health informa tion online - Detail Indication:Nonsmoker Start:24-Feb-2019 Instruction Type:Patient Education Patient Instructions Indication:BMI 30.0-30.9,adult Start:24-Feb-2019 Instruction Type:Provider Instructions for Treatment How to access health informa tion online Indication:BMI 30.0-30.9,adult Start:06-May-2018 Instruction Type:Patient Education How to access health informa tion online - Detail Indication:BMI 30.0-30.9,adult Start:06-May-2018 Instruction Type:Patient Education Patient Instructions Indication:Nonsmoker Start:06-May-2018 Instruction Type:Provider Instructions for Treatment How to access health informa tion online Indication:Nonsmoker Start:15-Apr-2018 Instruction Type:Patient Education How to access health informa tion online - Detail Indication:Nonsmoker Start:15-Apr-2018 Instruction Type:Patient Education Patient Instructions Indication:Nonsmoker Start:15-Apr-2018 Instruction Type:Provider Instructions for Treatment Patient Instructions Indication:BMI 29.0-29.9,adult Start:03-Feb-2018 Instruction Type:Provider Instructions for Treatment How to access health informa tion online Indication:Encounter for gynecological examination without abnormal finding Start:03-Feb-2018 Instruction Type:Patient Education How to access health informa tion online - Detail Indication:Encounter for gynecological examination without abnormal finding Start:03-Feb-2018 Instruction Type:Patient Education Patient Instructions Indication:Encounter for gynecological examination without abnormal finding Start:03-Feb-2018 Instruction Type:Provider Instructions for Treatment How to access health informa tion online Indication:Hypertension, benign Start:21-Jan-2018 Instruction Type:Patient Education How to access health informa tion online - Detail Indication:Hypertension, benign Start:21-Jan-2018 Instruction Type:Patient Education Patient Instructions Indication:Hypertension, benign Start:21-Jan-2018 Instruction Type:Provider Instructions for Treatment DISCONTINUED - Vitamin D Hyd annmarie ([id number]) Indication:Vitamin D deficiency Start:01-Mar-2017 Instruction Type:Patient Education DISCONTINUED - METABOLIC CAREY EL, COMPREHENSIVE ([id number]) Indication:Hypertension, benign Start:01-Mar-2017 Instruction Type:Patient Education How to access health informa tion online Indication:UTI symptoms Start:01-Mar-2017 Instruction Type:Patient Education How to access health informa tion online - Detail Indication:UTI symptoms Start:01-Mar-2017 Instruction Type:Patient Education Patient Instructions Indication:UTI symptoms Start:01-Mar-2017 Instruction Type:Provider Instructions for Treatment How to access health informa tion online Indication:Neck pain on left side Start:08-Dec-2016 Instruction Type:Patient Education How to access health informa tion online - Detail Indication:Neck pain on left side Start:08-Dec-2016 Instruction Type:Patient Education Patient Instructions Indication:Neck pain on left side Start:08-Dec-2016 Instruction Type:Provider Instructions for Treatment How to access health informa tion online Indication:Encounter for pre-employment examination Start:06-Mar-2015 Instruction Type:Patient Education How to access health informa tion online - Detail Indication:Encounter for pre-employment examination Start:06-Mar-2015 Instruction Type:Patient Education Patient Instructions Indication:Encounter for pre-employment examination Start:06-Mar-2015 Instruction Type:Provider Instructions for Treatment Patient Instructions Indication:Other abnormal finding of urine Start:30-Mar-2014 Instruction Type:Provider Instructions for Treatment How to access health informa tion online Indication:Hypertension, benign Start:02-Feb-2014 Instruction Type:Patient Education How to access health informa tion online - Detail Indication:Hypertension, benign Start:02-Feb-2014 Instruction Type:Patient Education Patient Instructions Indication:Hypertension, benign Start:02-Feb-2014 Instruction Type:Provider Instructions for Treatment Patient Instructions Indication:Hypertension, benign Start:27-Oct-2013 Instruction Type:Provider Instructions for Treatment Patient Instructions Indication:Hypertension, benign Start:03-Jul-2013 Instruction Type:Provider Instructions for Treatment Patient Instructions Indication:Hypoalbuminemia Start:29-Mar-2013 Instruction Type:Provider Instructions for Treatment Name Dates Details How to access health informa tion online Indication:Nonsmoker Start:05-Mar-2020 Instruction Type:Patient Education How to access health informa tion online - Detail Indication:Nonsmoker Start:05-Mar-2020 Instruction Type:Patient Education Patient Instructions Indication:Nonsmoker Start:05-Mar-2020 Instruction Type:Provider Instructions for Treatment How to access health informa tion online Indication:Nonsmoker Start:05-Jun-2019 Instruction Type:Patient Education How to access health informa tion online - Detail Indication:Nonsmoker Start:05-Jun-2019 Instruction Type:Patient Education Patient Instructions Indication:Nonsmoker Start:05-Jun-2019 Instruction Type:Provider Instructions for Treatment How to access health informa tion online Indication:Nonsmoker Start:24-Feb-2019 Instruction Type:Patient Education How to access health informa tion online - Detail Indication:Nonsmoker Start:24-Feb-2019 Instruction Type:Patient Education Patient Instructions Indication:BMI 30.0-30.9,adult Start:24-Feb-2019 Instruction Type:Provider Instructions for Treatment How to access health informa tion online Indication:BMI 30.0-30.9,adult Start:06-May-2018 Instruction Type:Patient Education How to access health informa tion online - Detail Indication:BMI 30.0-30.9,adult Start:06-May-2018 Instruction Type:Patient Education Patient Instructions Indication:Nonsmoker Start:06-May-2018 Instruction Type:Provider Instructions for Treatment How to access health informa tion online Indication:Nonsmoker Start:15-Apr-2018 Instruction Type:Patient Education How to access health informa tion online - Detail Indication:Nonsmoker Start:15-Apr-2018 Instruction Type:Patient Education Patient Instructions Indication:Nonsmoker Start:15-Apr-2018 Instruction Type:Provider Instructions for Treatment Patient Instructions Indication:BMI 29.0-29.9,adult Start:03-Feb-2018 Instruction Type:Provider Instructions for Treatment How to access health informa tion online Indication:Encounter for gynecological examination without abnormal finding Start:03-Feb-2018 Instruction Type:Patient Education How to access health informa tion online - Detail Indication:Encounter for gynecological examination without abnormal finding Start:03-Feb-2018 Instruction Type:Patient Education Patient Instructions Indication:Encounter for gynecological examination without abnormal finding Start:03-Feb-2018 Instruction Type:Provider Instructions for Treatment How to access health informa tion online Indication:Hypertension, benign Start:21-Jan-2018 Instruction Type:Patient Education How to access health informa tion online - Detail Indication:Hypertension, benign Start:21-Jan-2018 Instruction Type:Patient Education Patient Instructions Indication:Hypertension, benign Start:21-Jan-2018 Instruction Type:Provider Instructions for Treatment DISCONTINUED - Vitamin D Hyd annmarie ([id number]) Indication:Vitamin D deficiency Start:01-Mar-2017 Instruction Type:Patient Education DISCONTINUED - METABOLIC CAREY EL, COMPREHENSIVE ([id number]) Indication:Hypertension, benign Start:01-Mar-2017 Instruction Type:Patient Education How to access health informa tion online Indication:UTI symptoms Start:01-Mar-2017 Instruction Type:Patient Education How to access health informa tion online - Detail Indication:UTI symptoms Start:01-Mar-2017 Instruction Type:Patient Education Patient Instructions Indication:UTI symptoms Start:01-Mar-2017 Instruction Type:Provider Instructions for Treatment How to access health informa tion online Indication:Neck pain on left side Start:08-Dec-2016 Instruction Type:Patient Education How to access health informa tion online - Detail Indication:Neck pain on left side Start:08-Dec-2016 Instruction Type:Patient Education Patient Instructions Indication:Neck pain on left side Start:08-Dec-2016 Instruction Type:Provider Instructions for Treatment How to access health informa tion online Indication:Encounter for pre-employment examination Start:06-Mar-2015 Instruction Type:Patient Education How to access health informa tion online - Detail Indication:Encounter for pre-employment examination Start:06-Mar-2015 Instruction Type:Patient Education Patient Instructions Indication:Encounter for pre-employment examination Start:06-Mar-2015 Instruction Type:Provider Instructions for Treatment Patient Instructions Indication:Other abnormal finding of urine Start:30-Mar-2014 Instruction Type:Provider Instructions for Treatment How to access health informa tion online Indication:Hypertension, benign Start:02-Feb-2014 Instruction Type:Patient Education How to access health informa tion online - Detail Indication:Hypertension, benign Start:02-Feb-2014 Instruction Type:Patient Education Patient Instructions Indication:Hypertension, benign Start:02-Feb-2014 Instruction Type:Provider Instructions for Treatment Patient Instructions Indication:Hypertension, benign Start:27-Oct-2013 Instruction Type:Provider Instructions for Treatment Patient Instructions Indication:Hypertension, benign Start:03-Jul-2013 Instruction Type:Provider Instructions for Treatment Patient Instructions Indication:Hypoalbuminemia Start:29-Mar-2013 Instruction Type:Provider Instructions for Treatment Name Dates Details How to access health informa tion online Indication:Nonsmoker Start:28-May-2020 Instruction Type:Patient Education How to access health informa tion online - Detail Indication:Nonsmoker Start:28-May-2020 Instruction Type:Patient Education Patient Instructions Indication:Nonsmoker Start:28-May-2020 Instruction Type:Provider Instructions for Treatment How to access health informa tion online Indication:Nonsmoker Start:05-Mar-2020 Instruction Type:Patient Education How to access health informa tion online - Detail Indication:Nonsmoker Start:05-Mar-2020 Instruction Type:Patient Education Patient Instructions Indication:Nonsmoker Start:05-Mar-2020 Instruction Type:Provider Instructions for Treatment How to access health informa tion online Indication:Nonsmoker Start:05-Jun-2019 Instruction Type:Patient Education How to access health informa tion online - Detail Indication:Nonsmoker Start:05-Jun-2019 Instruction Type:Patient Education Patient Instructions Indication:Nonsmoker Start:05-Jun-2019 Instruction Type:Provider Instructions for Treatment How to access health informa tion online Indication:Nonsmoker Start:24-Feb-2019 Instruction Type:Patient Education How to access health informa tion online - Detail Indication:Nonsmoker Start:24-Feb-2019 Instruction Type:Patient Education Patient Instructions Indication:BMI 30.0-30.9,adult Start:24-Feb-2019 Instruction Type:Provider Instructions for Treatment How to access health informa tion online Indication:BMI 30.0-30.9,adult Start:06-May-2018 Instruction Type:Patient Education How to access health informa tion online - Detail Indication:BMI 30.0-30.9,adult Start:06-May-2018 Instruction Type:Patient Education Patient Instructions Indication:Nonsmoker Start:06-May-2018 Instruction Type:Provider Instructions for Treatment How to access health informa tion online Indication:Nonsmoker Start:15-Apr-2018 Instruction Type:Patient Education How to access health informa tion online - Detail Indication:Nonsmoker Start:15-Apr-2018 Instruction Type:Patient Education Patient Instructions Indication:Nonsmoker Start:15-Apr-2018 Instruction Type:Provider Instructions for Treatment Patient Instructions Indication:BMI 29.0-29.9,adult Start:03-Feb-2018 Instruction Type:Provider Instructions for Treatment How to access health informa tion online Indication:Encounter for gynecological examination without abnormal finding Start:03-Feb-2018 Instruction Type:Patient Education How to access health informa tion online - Detail Indication:Encounter for gynecological examination without abnormal finding Start:03-Feb-2018 Instruction Type:Patient Education Patient Instructions Indication:Encounter for gynecological examination without abnormal finding Start:03-Feb-2018 Instruction Type:Provider Instructions for Treatment How to access health informa tion online Indication:Hypertension, benign Start:21-Jan-2018 Instruction Type:Patient Education How to access health informa tion online - Detail Indication:Hypertension, benign Start:21-Jan-2018 Instruction Type:Patient Education Patient Instructions Indication:Hypertension, benign Start:21-Jan-2018 Instruction Type:Provider Instructions for Treatment DISCONTINUED - Vitamin D Hyd annmarie (43350) Indication:Vitamin D deficiency Start:01-Mar-2017 Instruction Type:Patient Education DISCONTINUED - METABOLIC CAREY EL, COMPREHENSIVE (41245) Indication:Hypertension, benign Start:01-Mar-2017 Instruction Type:Patient Education How to access health informa tion online Indication:UTI symptoms Start:01-Mar-2017 Instruction Type:Patient Education How to access health informa tion online - Detail Indication:UTI symptoms Start:01-Mar-2017 Instruction Type:Patient Education Patient Instructions Indication:UTI symptoms Start:01-Mar-2017 Instruction Type:Provider Instructions for Treatment How to access health informa tion online Indication:Neck pain on left side Start:08-Dec-2016 Instruction Type:Patient Education How to access health informa tion online - Detail Indication:Neck pain on left side Start:08-Dec-2016 Instruction Type:Patient Education Patient Instructions Indication:Neck pain on left side Start:08-Dec-2016 Instruction Type:Provider Instructions for Treatment How to access health informa tion online Indication:Encounter for pre-employment examination Start:06-Mar-2015 Instruction Type:Patient Education How to access health informa tion online - Detail Indication:Encounter for pre-employment examination Start:06-Mar-2015 Instruction Type:Patient Education Patient Instructions Indication:Encounter for pre-employment examination Start:06-Mar-2015 Instruction Type:Provider Instructions for Treatment Patient Instructions Indication:Other abnormal finding of urine Start:30-Mar-2014 Instruction Type:Provider Instructions for Treatment How to access health informa tion online Indication:Hypertension, benign Start:02-Feb-2014 Instruction Type:Patient Education How to access health informa tion online - Detail Indication:Hypertension, benign Start:02-Feb-2014 Instruction Type:Patient Education Patient Instructions Indication:Hypertension, benign Start:02-Feb-2014 Instruction Type:Provider Instructions for Treatment Patient Instructions Indication:Hypertension, benign Start:27-Oct-2013 Instruction Type:Provider Instructions for Treatment Patient Instructions Indication:Hypertension, benign Start:03-Jul-2013 Instruction Type:Provider Instructions for Treatment Patient Instructions Indication:Hypoalbuminemia Start:29-Mar-2013 Instruction Type:Provider Instructions for Treatment Name Dates Details How to access health informa tion online Indication:Nonsmoker Start:28-May-2020 Instruction Type:Patient Education How to access health informa tion online - Detail Indication:Nonsmoker Start:28-May-2020 Instruction Type:Patient Education Patient Instructions Indication:Nonsmoker Start:28-May-2020 Instruction Type:Provider Instructions for Treatment How to access health informa tion online Indication:Nonsmoker Start:05-Mar-2020 Instruction Type:Patient Education How to access health informa tion online - Detail Indication:Nonsmoker Start:05-Mar-2020 Instruction Type:Patient Education Patient Instructions Indication:Nonsmoker Start:05-Mar-2020 Instruction Type:Provider Instructions for Treatment How to access health informa tion online Indication:Nonsmoker Start:05-Jun-2019 Instruction Type:Patient Education How to access health informa tion online - Detail Indication:Nonsmoker Start:05-Jun-2019 Instruction Type:Patient Education Patient Instructions Indication:Nonsmoker Start:05-Jun-2019 Instruction Type:Provider Instructions for Treatment How to access health informa tion online Indication:Nonsmoker Start:24-Feb-2019 Instruction Type:Patient Education How to access health informa tion online - Detail Indication:Nonsmoker Start:24-Feb-2019 Instruction Type:Patient Education Patient Instructions Indication:BMI 30.0-30.9,adult Start:24-Feb-2019 Instruction Type:Provider Instructions for Treatment How to access health informa tion online Indication:BMI 30.0-30.9,adult Start:06-May-2018 Instruction Type:Patient Education How to access health informa tion online - Detail Indication:BMI 30.0-30.9,adult Start:06-May-2018 Instruction Type:Patient Education Patient Instructions Indication:Nonsmoker Start:06-May-2018 Instruction Type:Provider Instructions for Treatment How to access health informa tion online Indication:Nonsmoker Start:15-Apr-2018 Instruction Type:Patient Education How to access health informa tion online - Detail Indication:Nonsmoker Start:15-Apr-2018 Instruction Type:Patient Education Patient Instructions Indication:Nonsmoker Start:15-Apr-2018 Instruction Type:Provider Instructions for Treatment Patient Instructions Indication:BMI 29.0-29.9,adult Start:03-Feb-2018 Instruction Type:Provider Instructions for Treatment How to access health informa tion online Indication:Encounter for gynecological examination without abnormal finding Start:03-Feb-2018 Instruction Type:Patient Education How to access health informa tion online - Detail Indication:Encounter for gynecological examination without abnormal finding Start:03-Feb-2018 Instruction Type:Patient Education Patient Instructions Indication:Encounter for gynecological examination without abnormal finding Start:03-Feb-2018 Instruction Type:Provider Instructions for Treatment How to access health informa tion online Indication:Hypertension, benign Start:21-Jan-2018 Instruction Type:Patient Education How to access health informa tion online - Detail Indication:Hypertension, benign Start:21-Jan-2018 Instruction Type:Patient Education Patient Instructions Indication:Hypertension, benign Start:21-Jan-2018 Instruction Type:Provider Instructions for Treatment DISCONTINUED - Vitamin D Hyd annmarie (55646) Indication:Vitamin D deficiency Start:01-Mar-2017 Instruction Type:Patient Education DISCONTINUED - METABOLIC CAREY EL, COMPREHENSIVE ([id number]) Indication:Hypertension, benign Start:01-Mar-2017 Instruction Type:Patient Education How to access health informa tion online Indication:UTI symptoms Start:01-Mar-2017 Instruction Type:Patient Education How to access health informa tion online - Detail Indication:UTI symptoms Start:01-Mar-2017 Instruction Type:Patient Education Patient Instructions Indication:UTI symptoms Start:01-Mar-2017 Instruction Type:Provider Instructions for Treatment How to access health informa tion online Indication:Neck pain on left side Start:08-Dec-2016 Instruction Type:Patient Education How to access health informa tion online - Detail Indication:Neck pain on left side Start:08-Dec-2016 Instruction Type:Patient Education Patient Instructions Indication:Neck pain on left side Start:08-Dec-2016 Instruction Type:Provider Instructions for Treatment How to access health informa tion online Indication:Encounter for pre-employment examination Start:06-Mar-2015 Instruction Type:Patient Education How to access health informa tion online - Detail Indication:Encounter for pre-employment examination Start:06-Mar-2015 Instruction Type:Patient Education Patient Instructions Indication:Encounter for pre-employment examination Start:06-Mar-2015 Instruction Type:Provider Instructions for Treatment Patient Instructions Indication:Other abnormal finding of urine Start:30-Mar-2014 Instruction Type:Provider Instructions for Treatment How to access health informa tion online Indication:Hypertension, benign Start:02-Feb-2014 Instruction Type:Patient Education How to access health informa tion online - Detail Indication:Hypertension, benign Start:02-Feb-2014 Instruction Type:Patient Education Patient Instructions Indication:Hypertension, benign Start:02-Feb-2014 Instruction Type:Provider Instructions for Treatment Patient Instructions Indication:Hypertension, benign Start:27-Oct-2013 Instruction Type:Provider Instructions for Treatment Patient Instructions Indication:Hypertension, benign Start:03-Jul-2013 Instruction Type:Provider Instructions for Treatment Patient Instructions Indication:Hypoalbuminemia Start:29-Mar-2013 Instruction Type:Provider Instructions for Treatment Name Dates Details How to access health informa tion online Indication:Nonsmoker Start:28-May-2020 Instruction Type:Patient Education How to access health informa tion online - Detail Indication:Nonsmoker Start:28-May-2020 Instruction Type:Patient Education Patient Instructions Indication:Nonsmoker Start:28-May-2020 Instruction Type:Provider Instructions for Treatment How to access health informa tion online Indication:Nonsmoker Start:05-Mar-2020 Instruction Type:Patient Education How to access health informa tion online - Detail Indication:Nonsmoker Start:05-Mar-2020 Instruction Type:Patient Education Patient Instructions Indication:Nonsmoker Start:05-Mar-2020 Instruction Type:Provider Instructions for Treatment How to access health informa tion online Indication:Nonsmoker Start:05-Jun-2019 Instruction Type:Patient Education How to access health informa tion online - Detail Indication:Nonsmoker Start:05-Jun-2019 Instruction Type:Patient Education Patient Instructions Indication:Nonsmoker Start:05-Jun-2019 Instruction Type:Provider Instructions for Treatment How to access health informa tion online Indication:Nonsmoker Start:24-Feb-2019 Instruction Type:Patient Education How to access health informa tion online - Detail Indication:Nonsmoker Start:24-Feb-2019 Instruction Type:Patient Education Patient Instructions Indication:BMI 30.0-30.9,adult Start:24-Feb-2019 Instruction Type:Provider Instructions for Treatment How to access health informa tion online Indication:BMI 30.0-30.9,adult Start:06-May-2018 Instruction Type:Patient Education How to access health informa tion online - Detail Indication:BMI 30.0-30.9,adult Start:06-May-2018 Instruction Type:Patient Education Patient Instructions Indication:Nonsmoker Start:06-May-2018 Instruction Type:Provider Instructions for Treatment How to access health informa tion online Indication:Nonsmoker Start:15-Apr-2018 Instruction Type:Patient Education How to access health informa tion online - Detail Indication:Nonsmoker Start:15-Apr-2018 Instruction Type:Patient Education Patient Instructions Indication:Nonsmoker Start:15-Apr-2018 Instruction Type:Provider Instructions for Treatment Patient Instructions Indication:BMI 29.0-29.9,adult Start:03-Feb-2018 Instruction Type:Provider Instructions for Treatment How to access health informa tion online Indication:Encounter for gynecological examination without abnormal finding Start:03-Feb-2018 Instruction Type:Patient Education How to access health informa tion online - Detail Indication:Encounter for gynecological examination without abnormal finding Start:03-Feb-2018 Instruction Type:Patient Education Patient Instructions Indication:Encounter for gynecological examination without abnormal finding Start:03-Feb-2018 Instruction Type:Provider Instructions for Treatment How to access health informa tion online Indication:Hypertension, benign Start:21-Jan-2018 Instruction Type:Patient Education How to access health informa tion online - Detail Indication:Hypertension, benign Start:21-Jan-2018 Instruction Type:Patient Education Patient Instructions Indication:Hypertension, benign Start:21-Jan-2018 Instruction Type:Provider Instructions for Treatment DISCONTINUED - Vitamin D Hyd annmarie (84990) Indication:Vitamin D deficiency Start:01-Mar-2017 Instruction Type:Patient Education DISCONTINUED - METABOLIC CAREY EL, COMPREHENSIVE ([id number]) Indication:Hypertension, benign Start:01-Mar-2017 Instruction Type:Patient Education How to access health informa tion online Indication:UTI symptoms Start:01-Mar-2017 Instruction Type:Patient Education How to access health informa tion online - Detail Indication:UTI symptoms Start:01-Mar-2017 Instruction Type:Patient Education Patient Instructions Indication:UTI symptoms Start:01-Mar-2017 Instruction Type:Provider Instructions for Treatment How to access health informa tion online Indication:Neck pain on left side Start:08-Dec-2016 Instruction Type:Patient Education How to access health informa tion online - Detail Indication:Neck pain on left side Start:08-Dec-2016 Instruction Type:Patient Education Patient Instructions Indication:Neck pain on left side Start:08-Dec-2016 Instruction Type:Provider Instructions for Treatment How to access health informa tion online Indication:Encounter for pre-employment examination Start:06-Mar-2015 Instruction Type:Patient Education How to access health informa tion online - Detail Indication:Encounter for pre-employment examination Start:06-Mar-2015 Instruction Type:Patient Education Patient Instructions Indication:Encounter for pre-employment examination Start:06-Mar-2015 Instruction Type:Provider Instructions for Treatment Patient Instructions Indication:Other abnormal finding of urine Start:30-Mar-2014 Instruction Type:Provider Instructions for Treatment How to access health informa tion online Indication:Hypertension, benign Start:02-Feb-2014 Instruction Type:Patient Education How to access health informa tion online - Detail Indication:Hypertension, benign Start:02-Feb-2014 Instruction Type:Patient Education Patient Instructions Indication:Hypertension, benign Start:02-Feb-2014 Instruction Type:Provider Instructions for Treatment Patient Instructions Indication:Hypertension, benign Start:27-Oct-2013 Instruction Type:Provider Instructions for Treatment Patient Instructions Indication:Hypertension, benign Start:03-Jul-2013 Instruction Type:Provider Instructions for Treatment Patient Instructions Indication:Hypoalbuminemia Start:29-Mar-2013 Instruction Type:Provider Instructions for Treatment Name Dates Details How to access health informa tion online Indication:Nonsmoker Start:05-Jun-2019 Instruction Type:Patient Education How to access health informa tion online - Detail Indication:Nonsmoker Start:05-Jun-2019 Instruction Type:Patient Education Patient Instructions Indication:Nonsmoker Start:05-Jun-2019 Instruction Type:Provider Instructions for Treatment How to access health informa tion online Indication:Nonsmoker Start:24-Feb-2019 Instruction Type:Patient Education How to access health informa tion online - Detail Indication:Nonsmoker Start:24-Feb-2019 Instruction Type:Patient Education Patient Instructions Indication:BMI 30.0-30.9,adult Start:24-Feb-2019 Instruction Type:Provider Instructions for Treatment How to access health informa tion online Indication:BMI 30.0-30.9,adult Start:06-May-2018 Instruction Type:Patient Education How to access health informa tion online - Detail Indication:BMI 30.0-30.9,adult Start:06-May-2018 Instruction Type:Patient Education Patient Instructions Indication:Nonsmoker Start:06-May-2018 Instruction Type:Provider Instructions for Treatment How to access health informa tion online Indication:Nonsmoker Start:15-Apr-2018 Instruction Type:Patient Education How to access health informa tion online - Detail Indication:Nonsmoker Start:15-Apr-2018 Instruction Type:Patient Education Patient Instructions Indication:Nonsmoker Start:15-Apr-2018 Instruction Type:Provider Instructions for Treatment Patient Instructions Indication:BMI 29.0-29.9,adult Start:03-Feb-2018 Instruction Type:Provider Instructions for Treatment How to access health informa tion online Indication:Encounter for gynecological examination without abnormal finding Start:03-Feb-2018 Instruction Type:Patient Education How to access health informa tion online - Detail Indication:Encounter for gynecological examination without abnormal finding Start:03-Feb-2018 Instruction Type:Patient Education Patient Instructions Indication:Encounter for gynecological examination without abnormal finding Start:03-Feb-2018 Instruction Type:Provider Instructions for Treatment How to access health informa tion online Indication:Hypertension, benign Start:21-Jan-2018 Instruction Type:Patient Education How to access health informa tion online - Detail Indication:Hypertension, benign Start:21-Jan-2018 Instruction Type:Patient Education Patient Instructions Indication:Hypertension, benign Start:21-Jan-2018 Instruction Type:Provider Instructions for Treatment DISCONTINUED - Vitamin D Hyd annmarie (30141) Indication:Vitamin D deficiency Start:01-Mar-2017 Instruction Type:Patient Education DISCONTINUED - METABOLIC CAREY EL, COMPREHENSIVE (50109) Indication:Hypertension, benign Start:01-Mar-2017 Instruction Type:Patient Education How to access health informa tion online Indication:UTI symptoms Start:01-Mar-2017 Instruction Type:Patient Education How to access health informa tion online - Detail Indication:UTI symptoms Start:01-Mar-2017 Instruction Type:Patient Education Patient Instructions Indication:UTI symptoms Start:01-Mar-2017 Instruction Type:Provider Instructions for Treatment How to access health informa tion online Indication:Neck pain on left side Start:08-Dec-2016 Instruction Type:Patient Education How to access health informa tion online - Detail Indication:Neck pain on left side Start:08-Dec-2016 Instruction Type:Patient Education Patient Instructions Indication:Neck pain on left side Start:08-Dec-2016 Instruction Type:Provider Instructions for Treatment How to access health informa tion online Indication:Encounter for pre-employment examination Start:06-Mar-2015 Instruction Type:Patient Education How to access health informa tion online - Detail Indication:Encounter for pre-employment examination Start:06-Mar-2015 Instruction Type:Patient Education Patient Instructions Indication:Encounter for pre-employment examination Start:06-Mar-2015 Instruction Type:Provider Instructions for Treatment Patient Instructions Indication:Other abnormal finding of urine Start:30-Mar-2014 Instruction Type:Provider Instructions for Treatment How to access health informa tion online Indication:Hypertension, benign Start:02-Feb-2014 Instruction Type:Patient Education How to access health informa tion online - Detail Indication:Hypertension, benign Start:02-Feb-2014 Instruction Type:Patient Education Patient Instructions Indication:Hypertension, benign Start:02-Feb-2014 Instruction Type:Provider Instructions for Treatment Patient Instructions Indication:Hypertension, benign Start:27-Oct-2013 Instruction Type:Provider Instructions for Treatment Patient Instructions Indication:Hypertension, benign Start:03-Jul-2013 Instruction Type:Provider Instructions for Treatment Patient Instructions Indication:Hypoalbuminemia Start:29-Mar-2013 Instruction Type:Provider Instructions for Treatment Name Dates Details BMI 30.0-30.9,adult : How to access health information online Indication:BMI 30.0-30.9,adult BMI 30.0-30.9,adult : How to access health information online - Detail Indication:BMI 30.0-30.9,adult Nonsmoker : Patient Instruct ions Indication:Nonsmoker Nonsmoker : How to access he alth information online Indication:Nonsmoker Nonsmoker : How to access he alth information online - Detail Indication:Nonsmoker BMI 29.0-29.9,adult : Patien t Instructions Indication:BMI 29.0-29.9,adult Encounter for gynecological examination without abnormal finding : How to access health information online Indication:Encounter for gynecological examination without abnormal finding Encounter for gynecological examination without abnormal finding : How to access health information online - Detail Indication:Encounter for gynecological examination without abnormal finding Encounter for gynecological examination without abnormal finding : Patient Instructions Indication:Encounter for gynecological examination without abnormal finding Hypertension, benign : How t o access health information online Indication:Hypertension, benign Hypertension, benign : How t o access health information online - Detail Indication:Hypertension, benign Hypertension, benign : Patie nt Instructions Indication:Hypertension, benign Vitamin D deficiency : DISCO NTINUED - Vitamin D Hydroxy (23805) Indication:Vitamin D deficiency Hypertension, benign : DISCO NTINUED - METABOLIC PANEL, COMPREHENSIVE (85807) Indication:Hypertension, benign UTI symptoms : How to access health information online Indication:UTI symptoms UTI symptoms : How to access health information online - Detail Indication:UTI symptoms UTI symptoms : Patient Instr uctions Indication:UTI symptoms Neck pain on left side : How to access health information online Indication:Neck pain on left side Neck pain on left side : How to access health information online - Detail Indication:Neck pain on left side Neck pain on left side : Pat ient Instructions Indication:Neck pain on left side Encounter for pre-employment examination : How to access health information online Indication:Encounter for pre-employment examination Encounter for pre-employment examination : How to access health information online - Detail Indication:Encounter for pre-employment examination Encounter for pre-employment examination : Patient Instructions Indication:Encounter for pre-employment examination Other abnormal finding of ur ine : Patient Instructions Indication:Other abnormal finding of urine Hypoalbuminemia : Patient In structions Indication:Hypoalbuminemia Chief Complaint and Reason for Visit Chief Complaint S/P R SHLD ARTHROSCO PE RTC/DR TO FAX Chief Complaint S/P R SHLD ARTHROSCO PE RTC/DR TO FAX [employer] [facility] Chief Complaint S/P R SHLD ARTHROSCO PE RTC/DR TO FAX [employer] Chief Complaint Amb Documentation aortic stenosis/ref. [place] Nonrheumatic aortic (valve) stenosis PALPITATIONS Nonrheumatic aortic (valve) stenosis Nonrheumatic aortic (valve) stenosis Nonrheumatic aortic (valve) stenosis 6 wk fu Reason for Visit Bicuspid aortic valv e Dizziness Essential hypertension Nonrheumatic aortic (valve) stenosis Bicuspid aortic valve Dizziness Nonrheumatic aortic (valve) stenosis Palpitations Bicuspid aortic valve Essential hypertension Nonrheumatic aortic (valve) stenosis Chief Complaint aortic stenosis/ref. manchak Nonrheumatic aortic (valve) stenosis PALPITATIONS Nonrheumatic aortic (valve) stenosis Nonrheumatic aortic (valve) stenosis Nonrheumatic aortic (valve) stenosis 6 wk fu 2 M FU Reason for Visit Dizziness Essential hypertension Nonrheumatic aortic (valve) stenosis Bicuspid aortic valve Dizziness Nonrheumatic aortic (valve) stenosis Palpitations Bicuspid aortic valve Essential hypertension Nonrheumatic aortic (valve) stenosis Bicuspid aortic valve Essential hypertension Fever History of aortic valve replacement with bioprosthetic valve History of ascending aorta repair Nonrheumatic aortic (valve) stenosis Status post patent foramen ovale closure Cough Bicuspid aortic valve Chief Complaint Nonrheumatic aortic (valve) stenosis Nonrheumatic aortic (valve) stenosis Nonrheumatic aortic (valve) stenosis 6 wk fu 2 M FU Heart Valve Replacement fu per [facility] E ORDER Heart Valve replacement Reason for Visit Dizziness Nonrheumatic aortic (valve) stenosis Palpitations Bicuspid aortic valve Essential hypertension Nonrheumatic aortic (valve) stenosis Bicuspid aortic valve Essential hypertension Fever History of aortic valve replacement with bioprosthetic valve History of ascending aorta repair Nonrheumatic aortic (valve) stenosis Status post patent foramen ovale closure Cough Bicuspid aortic valve Anemia Essential hypertension History of aortic valve replacement with bioprosthetic valve History of ascending aorta repair Status post patent foramen ovale closure Bicuspid aortic valve Chief Complaint Nonrheumatic aortic (valve) stenosis 6 wk fu 2 M FU Heart Valve Replacement fu per [facility] E ORDER Heart Valve replacement Reason for Visit Dizziness Nonrheumatic aortic (valve) stenosis Palpitations Bicuspid aortic valve Essential hypertension Nonrheumatic aortic (valve) stenosis Bicuspid aortic valve Essential hypertension Fever History of aortic valve replacement with bioprosthetic valve History of ascending aorta repair Nonrheumatic aortic (valve) stenosis Status post patent foramen ovale closure Cough Bicuspid aortic valve Anemia Essential hypertension History of aortic valve replacement with bioprosthetic valve History of ascending aorta repair Status post patent foramen ovale closure Bicuspid aortic valve Chief Complaint 6 wk fu 2 M FU Heart Valve Replacement fu per [facility] E ORDER Heart Valve replacement S/P AORTIC VALVE REPLACEMENT Heart Valve replacement Reason for Visit Essential hypertensi on Nonrheumatic aortic (valve) stenosis Bicuspid aortic valve Essential hypertension Fever History of aortic valve replacement with bioprosthetic valve History of ascending aorta repair Nonrheumatic aortic (valve) stenosis Status post patent foramen ovale closure Cough Bicuspid aortic valve Anemia Essential hypertension History of aortic valve replacement with bioprosthetic valve History of ascending aorta repair Status post patent foramen ovale closure Bicuspid aortic valve Chief Complaint 2 M FU Heart Valve Replacement fu per [facility] E ORDER Heart Valve replacement S/P AORTIC VALVE REPLACEMENT Heart Valve replacement Reason for Visit Essential hypertensi on Fever History of aortic valve replacement with bioprosthetic valve History of ascending aorta repair Nonrheumatic aortic (valve) stenosis Status post patent foramen ovale closure Cough Bicuspid aortic valve Anemia Essential hypertension History of aortic valve replacement with bioprosthetic valve History of ascending aorta repair Status post patent foramen ovale closure Bicuspid aortic valve Chief Complaint 2 M FU Heart Valve Replacement fu per [facility] E ORDER Heart Valve replacement S/P AORTIC VALVE REPLACEMENT Heart Valve replacement 3 M FU Heart Valve replacement Reason for Visit Essential hypertensi on Fever History of aortic valve replacement with bioprosthetic valve History of ascending aorta repair Nonrheumatic aortic (valve) stenosis Status post patent foramen ovale closure Cough Bicuspid aortic valve Anemia Essential hypertension History of aortic valve replacement with bioprosthetic valve History of ascending aorta repair Status post patent foramen ovale closure Bicuspid aortic valve Anemia Essential hypertension History of aortic valve replacement with bioprosthetic valve History of ascending aorta repair Status post patent foramen ovale closure Chief Complaint fu per [facility] E ORDER Heart Valve replacement S/P AORTIC VALVE REPLACEMENT Heart Valve replacement 3 M FU Heart Valve replacement Heart Valve replacement Reason for Visit Anemia Essential hypertension History of aortic valve replacement with bioprosthetic valve History of ascending aorta repair Status post patent foramen ovale closure Bicuspid aortic valve Anemia Essential hypertension History of aortic valve replacement with bioprosthetic valve History of ascending aorta repair Status post patent foramen ovale closure Chief Complaint 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 Chief Complaint Admit Date UTERINE FIBROID October 12, 2024 2:1 9pm Chief Complaint Admit Date UTERINE FIBROID October 12, 2024 2:1 9pm Uterine fibroid October 18, 2024 8:10 am 1 Y FU December 21, 2024 1:28p m EMB December 27, 2024 10:4 8am Reason for Visit Admit Date Post-menopausal bleeding October 18, 2024 8:10am Uterine fibroid October 18, 2024 8:10 am History of ascending aorta repair December 212024 1:28pm Essential hypertension December 21, 2024 1: 28pm History of aortic valve replacement with bioprosthetic valve December 21, 2024 1:28pm Chief Complaint Admit Date UTERINE FIBROID October 12, 2024 2:1 9pm Uterine fibroid October 18, 2024 8:10 am 1 Y FU December 21, 2024 1:28p m Reason for Visit Admit Date Post-menopausal bleeding October 18, 2024 8:10am Uterine fibroid October 18, 2024 8:10 am Reason for Visit Admit Date Post-menopausal bleeding October 18, 2024 8:10am Uterine fibroid October 18, 2024 8:10 am History of ascending aorta repair December 212024 1:28pm Essential hypertension December 21, 2024 1: 28pm History of aortic valve replacement with bioprosthetic valve December 21, 2024 1:28pm Post-menopausal bleeding December 27, 2024 10:48am Uterine fibroid December 27, 2024 10:4 8am Advance Directives Advance Directive Response Recorded Date/ Time Advance Directives No June 8:20am Living Will No July 25 3:23pm Power of Trimmer Machine Operator No July 25, 022 3:23pm Advance Directive Response Recorded Date/ Time Advance Directives on File No Aprob er 2021 7:08am Advance Directives No May 19, 2022 6:43am Living Will No May 19 6:43am Power of Trimmer Machine Operator No May 19, 2022 6:43am Advance Directive Response Recorded Date/ Time Advance Directives on File No Aprob er 2021 7:08am Advance Directives on File No Julua ry 2022 10:21am Advance Directives No May 19, 2022 6:43am Living Will No August 17 10:21am Power of Trimmer Machine Operator No August 17, 2022 10:21am Advance Directive Response Recorded Date/ Time Advance Directives on File No Julua 2022 10:21am Advance Directives No May 19, 2022 6:43am Living Will No August 17 10:21am Power of Trimmer Machine Operator No August 17, 2022 10:21am Advance Directive Response Recorded Date/ Time Advance Directives on File No 2022 11:21am Advance Directives No May 19, 2022 7:43am Living Will No August 17 11:21am Power of Trimmer Machine Operator No August 17, 2022 11:21am Advance Directive Response Recorded Date/ Time Advance Directives No May 19, 2022 7:43am Living Will No August 17 11:21am Power of Trimmer Machine Operator No August 17, 2022 11:21am Advance Directive Response Recorded Date/ Time Living Will No April 13, 2024 3:45pm Do you have a Healthcare Power of Trimmer Machine Operator? No April 13, 2024 3:45pm Advance Directives No May 19, 2022 7:43am Family History No Family History Records Found Relationship Condition Age at Onset Recorded Date/T shey mother Hypertension Unknown Diabetes mellitus Unknown sister History of heart valve replacement Unknow n Aortic aneurysm Unknown Health Concerns Infection Onset Date Last Indicated Resolved Time COVID-19 Rule-Out 06/24/2022 06/24/2022 06/24/2022 7:38 PM EST Reason for Referral Specialty Diagnoses / Procedures Referred By Contac t Referred To Contact CT IMAGING Diagnoses Disorder of artery or arteriole (HCC) Pre-operative cardiovascular examination Aortic valve disorder Procedures CTA CHEST (GATED) W IVCON CT ANGIOGRAPHY CHEST W/CONTRAST/NONCONTRAST Jacob Farooq MD [address] [place] [address] Ct Imaging Referral ID Status Reason Start Date Expiration Date V isits Requested Visits Authorized [id number] Closed Auto-Generate d Referral 06/10/2022 07/18/2022 1 1 Summary Purpose Additional Source Comments Goals (unrecognized section and content) Goals may be documented in a n alternate sectionGoals may be documented in an alternate sectionGoals may be documented in an alternate sectionGoals may be documented in an alternate sectionGoals may be documented in an alternate sectionGoals may be documented in an alternate sectionGoals may be documented in an alternate sectionGoals may be documented in an alternate sectionGoals may be documented in an alternate sectionGoals may be documented in an alternate sectionGoals may be documented in an alternate sectionGoals may be documented in an alternate sectionGoals may be documented in an alternate sectionGoals may be documented in an alternate sectionGoals may be documented in an alternate sectionGoals may be documented in an alternate sectionGoals may be documented in an alternate sectionGoals may be documented in an alternate sectionGoals may be documented in an alternate sectionGoals may be documented in an alternate section Source Comments (unrecognize d section and content) In the event this informatio n is protected by the Federal Confidentiality of Alcohol and Drug Abuse Patient Records regulations: The Federal rules restrict any use of the information to criminally investigate or prosecute any alcohol or drug abuse patient.[facility] the event this information is protected by the Federal Confidentiality of Alcohol and Drug Abuse Patient Records regulations: The Federal rules restrict any use of the information to criminally investigate or prosecute any alcohol or drug abuse patient.[facility] the event this information is protected by the Federal Confidentiality of Alcohol and Drug Abuse Patient Records regulations: The Federal rules restrict any use of the information to criminally investigate or prosecute any alcohol or drug abuse patient.[facility] the event this information is protected by the Federal Confidentiality of Alcohol and Drug Abuse Patient Records regulations: The Federal rules restrict any use of the information to criminally investigate or prosecute any alcohol or drug abuse patient.[facility] the event this information is protected by the Federal Confidentiality of Alcohol and Drug Abuse Patient Records regulations: The Federal rules restrict any use of the information to criminally investigate or prosecute any alcohol or drug abuse patient.[facility] the event this information is protected by the Federal Confidentiality of Alcohol and Drug Abuse Patient Records regulations: The Federal rules restrict any use of the information to criminally investigate or prosecute any alcohol or drug abuse patient.[facility] the event this information is protected by the Federal Confidentiality of Alcohol and Drug Abuse Patient Records regulations: The Federal rules restrict any use of the information to criminally investigate or prosecute any alcohol or drug abuse patient.[facility] the event this information is protected by the Federal Confidentiality of Alcohol and Drug Abuse Patient Records regulations: The Federal rules restrict any use of the information to criminally investigate or prosecute any alcohol or drug abuse patient.[facility] the event this information is protected by the Federal Confidentiality of Alcohol and Drug Abuse Patient Records regulations: The Federal rules restrict any use of the information to criminally investigate or prosecute any alcohol or drug abuse patient.[facility] the event this information is protected by the Federal Confidentiality of Alcohol and Drug Abuse Patient Records regulations: The Federal rules restrict any use of the information to criminally investigate or prosecute any alcohol or drug abuse patient.[facility] the event this information is protected by the Federal Confidentiality of Alcohol and Drug Abuse Patient Records regulations: The Federal rules restrict any use of the information to criminally investigate or prosecute any alcohol or drug abuse patient.[facility] Hospital[facility] the event this information is protected by the Federal Confidentiality of Alcohol and Drug Abuse Patient Records regulations: The Federal rules restrict any use of the information to criminally investigate or prosecute any alcohol or drug abuse patient.[facility] Hospital[facility] the event this information is protected by the Federal Confidentiality of Alcohol and Drug Abuse Patient Records regulations: The Federal rules restrict any use of the information to criminally investigate or prosecute any alcohol or drug abuse patient.[facility] HospitalIn the event this information is protected by the Federal Confidentiality of Alcohol and Drug Abuse Patient Records regulations: The Federal rules restrict any use of the information to criminally investigate or prosecute any alcohol or drug abuse patient.[facility] HospitalIn the event this information is protected by the Federal Confidentiality of Alcohol and Drug Abuse Patient Records regulations: The Federal rules restrict any use of the information to criminally investigate or prosecute any alcohol or drug abuse patient.[facility] HospitalIn the event this information is protected by the Federal Confidentiality of Alcohol and Drug Abuse Patient Records regulations: The Federal rules restrict any use of the information to criminally investigate or prosecute any alcohol or drug abuse patient.[facility] HospitalIn the event this information is protected by the Federal Confidentiality of Alcohol and Drug Abuse Patient Records regulations: The Federal rules restrict any use of the information to criminally investigate or prosecute any alcohol or drug abuse patient.[facility] Reason for Visit (unrecogniz ed section and content) Reason Comments Post Op Specialty Diagnoses / Procedures Referred By Veronica ruth Referred To Contact ADMITTING Diagnoses Disorder of artery or arteriole (HCC) Pre-operative cardiovascular examination Aortic valve disorder Procedures RPLCMT PROST AORTIC VALVE OPEN XCP HOMOGRF/STENT AVR W/ CARDIOPULMONARY BYPASS W/ PROSTHETIC OTHER THAN HOMOGRAFT/ STENTLESS TISSUE VALVE [facility] [address] [place], [place] [id number] Referral ID Status Reason Start Date Expiration Date Visits Re quested Visits Authorized [id number] 1 1 Reason Comments Insurance Authorization Reason Comments Pre-Op Teaching Reason Comments Spirometry Specialty Diagnoses / Procedures Referred By Veronica t Referred To [facility] Diagnoses Disorder of artery or arteriole (HCC) Pre-operative cardiovascular examination Aortic valve disorder Procedures SPIROMETRY BASELINE ONLY SPMTRY W/VC EXPIRATORY MOE W/WO MXML VOL VNTJ Jacob Farooq MD [address] [place] [address] [facility] [address] [place] [id number] Referral ID Status Reason Start Date Expiration Date V isits Requested Visits Authorized [id number] Closed Auto-Generate d Referral 05/28/2022 06/27/2023 1 1 Specialty Diagnoses / Procedures Referred By Contac t Referred To Contact Cardiology Diagnoses Disorder of artery or arteriole (HCC) Pre-operative cardiovascular examination Aortic valve disorder Procedures CONSULT TO CARDIOLOGY OFFICE/OUTPATIENT [facility] 60-74 MINUTES Jacob Farooq MD [address] [facility] [place] [id number] Referral ID Status Reason Start Date Expiration Date V isits Requested Visits Authorized [id number] Closed PCP Requested Referral 05/28/2022 05/28/2023 [address] Specialty Diagnoses / Procedures Referred By Contac t Referred To Contact CT IMAGING Diagnoses Disorder of artery or arteriole (HCC) Pre-operative cardiovascular examination Aortic valve disorder Procedures CTA CHEST (GATED) W IVCON CT ANGIOGRAPHY CHEST W/CONTRAST/NONCONTRAST Jacob Farooq MD [address] [place] [address] Ct Imaging Referral ID Status Reason Start Date Expiration Date V isits Requested Visits Authorized [id number] Closed Auto-Generate d Referral 06/10/2022 07/18/2022 1 1 Specialty Diagnoses / Procedures Referred By Contac t Referred To Contact Cardiac Surg / [facility] Department Diagnoses Disorder of artery or arteriole (HCC) Pre-operative cardiovascular examination Aortic valve disorder Procedures CARDIOTHORACIC PREOP EVALUATION OFFICE/OUTPATIENT [facility] 60-74 MINUTES Jacob Farooq MD [address] [place] [address] [facility] Dept Referral ID Status Reason Start Date Expiration Date Visits Requested Visits Authorized [id number] Authorized PCP Requested Referral 08 3007/18/2022 10 10 Reason Comments Pre-Op Exam Specialty Diagnoses / Procedures Referred By Veronica t Referred To Contact Cardiac Surg / [facility] Department Diagnoses Disorder of artery or arteriole (HCC) Pre-operative cardiovascular examination Aortic valve disorder Procedures CARDIOTHORACIC PREOP EVALUATION OFFICE/OUTPATIENT [facility] HIGH MDM 60-74 MINUTES Jacob Farooq MD [address] [place] [address] [facility] Dept Reason Comments Patient Education Reason Comments Follow Up Phone Call RC all clear Reason Comments Radio Main J1 Care Teams (unrecognized sec tion and content) Quiller Machine Fixer Relationship Specialty Start Date End Date Liz Lynch [address] [phone] PCP - General 03/24/06 Quiller Machine Fixer Relationship Specialty Start Date End Date Liz Lynch [address] [phone] PCP - General 03/24/06 Quiller Machine Fixer Relationship Specialty Start Date End Date Asa Alba [address] [facility] [address] [place] [address] PCP - General Family Medicine 06/18/22 Ranjit Roque MD [address] [place] [address] Primary Staff Physician Cardiology 06/24/22 Quiller Machine Fixer Relationship Specialty Start Date End Date Asa Alba [address] [facility] [email or web address] [address] [place], [place] [id number] PCP - General Family Medicine 06/18/22 Ranjit Roque MD [address] [place] [address] Primary Staff Physician Cardiology 06/24/22 Quiller Machine Fixer Relationship Specialty Start Date End Date Asa Alba [address] [facility] [facility] [[email or web address] [address] [place] [address] PCP - General Family Medicine 06/18/22 Ranjit Roque MD [address] [facility] [address] Primary Staff Physician Cardiology 06/24/22 Quiller Machine Fixer Relationship Specialty Start Date End Date Asa Alba [address] [facility] [address] [place] [address] PCP - General Family Medicine 06/18/22 Ranjit Roque MD [address] [facility] [place] [address] Primary Staff Physician Cardiology 06/24/22 Quiller Machine Fixer Relationship Specialty Start Date End Date Asa Alba [facility] [[email or web address] [address] [place] [address] PCP - General Family Medicine 06/18/22 Ranjit Roque MD [address] [place] [address] Primary Staff Physician Cardiology 06/24/22 Quiller Machine Fixer Relationship Specialty Start Date End Date [facility] [address] [place] [address] PCP - General Family Medicine 06/18/22 Ranjit Roque MD [address] [place] [address] Primary Staff Physician Cardiology 06/24/22 Quiller Machine Fixer Relationship Specialty Start Date End Date Asa Alba [address] [facility] [address] [place] [address] PCP - General Family Medicine 06/18/22 Ranjit Roque MD [address] [place] [address] Primary Staff Physician Cardiology 06/24/22 Quiller Machine Fixer Relationship Specialty Start Date End Date Rosalee Albayn [facility] [address] [place] [address] PCP - General Family Medicine 06/18/22 Ranjit Roque MD [address] [place] [address] Primary Staff Physician Cardiology 06/24/22 Quiller Machine Fixer Relationship Specialty Start Date End Date Rosalee Albayn Bruce [facility] [address] [place] [address] PCP - General Family Medicine 06/18/22 Ranjit Roque MD [address] [place] [address] Primary Staff Physician Cardiology 06/24/22 Quiller Machine Fixer Relationship Specialty Start Date End Date Rosalee Albayn SinanChristie [facility] [address] [place] [address] PCP - General Family Medicine 06/18/22 Ranjit Roque MD [address] [place] [address] Primary Staff Physician Cardiology 06/24/22 Quiller Machine Fixer Relationship Specialty Start Date End Date ParthAsa SinanChristie [facility] [address] [place] [address] PCP - General Family Medicine 06/18/22 Ranjit Roque MD [address] [place] [address] Primary Staff Physician Cardiology 06/24/22 Quiller Machine Fixer Relationship Specialty Start Date End Date [facility] [address] [place] [address] PCP - General Family Medicine 06/18/22 Ranjit Roque MD [address] [place] [address] Primary Staff Physician Cardiology 06/24/22 Team Status: Active Member Role Status Dates Ramona Grhaam PARTS SALES ADVISOR, PARTS SALES ADVISOR-C Family Provider Active Asa Alba , PARTS SALES ADVISOR-C Primary Care Provider Active Team Status: Inactive Member Role Status Dates Dr. Jaimee Jarrett DO Referring Provider Active Dr. Devonte Cullen MD Attending Provider Active Asa Alba , PARTS SALES ADVISOR-C Primary Care Provider Active Team Status: Inactive Member Role Status Dates Asa Alba , PARTS SALES ADVISOR-C Primary Care Provider, Referring Provider Active Nathan Hastings PARTS SALES ADVISOR, PARTS SALES ADVISOR-C Attending Provider Active Team Status: Active Member Role Status Dates Asa Alba PARTS SALES ADVISOR-C Primary Care Provider Active Dr. Devonte Cullen MD Attending Provider, Referring Provider Active Team Status: Active Member Role Status Dates Asa Alba PARTS SALES ADVISOR-C Primary Care Provider Active Dr. Devonte Cullen MD Attending Provid er, Referring Provider, Other Provider Active Team Status: Inactive Member Role Status Dates Asa Alba PARTS SALES ADVISOR-C Primary Care Provider Active Dr. Devonte Cullen MD Attending Provider, Referring Provider Active Team Status: Inactive Member Role Status Dates Asa Alba , PARTS SALES ADVISOR-C Primary Care Provider Active Nathan Hastings PARTS SALES ADVISOR, PARTS SALES ADVISOR-C Attending Provider, Referring Pro vider Active Team Status: Active Member Role Status Dates Asa Alba PARTS SALES ADVISOR-C Primary Care Provider Active Dr. Devonte Cullen MD Attending Provider Active Team Status: Inactive Member Role Status Dates Asa Alba , PARTS SALES ADVISOR-C Primary Care Provider, Referring Provider Active Vianey De La Garza PARTS SALES ADVISOR, PARTS SALES ADVISOR-C Attending Provider Active Team Status: Inactive Member Role Status Dates Asa Alba , PARTS SALES ADVISOR-C Primary Care Provider Active Dr. Devonte Cullen MD Attending Provider Active Team Status: Active Member Role Status Dates Asa Alba , PARTS SALES ADVISOR-C Primary Care Provider Active Vianey De La Garza PARTS SALES ADVISOR, PARTS SALES ADVISOR-C Attending Provider Active Team Status: Inactive Member Role Status Dates Asa Alba , PARTS SALES ADVISOR-C Primary Care Provider Active Vianey De La Garza PARTS SALES ADVISOR, PARTS SALES ADVISOR-C Attending Provider Active Team Status: Active Member Role Status Dates Asa Alba , PARTS SALES ADVISOR-C Primary Care Provi michael, Attending Provider, Referring Provider Active Team Status: Inactive Member Role Status Dates Asa Alba PARTS SALES ADVISOR-C Primary Care Provi michael, Attending Provider, Referring Provider Active Team Status: Inactive Member Role Status Dates Asa Alba PARTS SALES ADVISOR-C Primary Care Provider Active Vianey De La Garza NP, PARTS SALES ADVISOR-C Attending Provider, Referring Bhakti farnsworth Active Quiller Machine Fixer Relationship Specialty Start Date End Date ParthAsa maynard [address] [facility] [address] [place] [address] PCP - General Family Medicine 06/18/22 Ranjit Roque MD [address] [place] [address] Primary Staff Physician Cardiology 06/24/22 Team Status: Active Member Role Status Dates Asa Alba NP-Craig Primary Care Provider Active Health Risk Assessment Attending Provider, Referring P javad Active Team Status: Active Member Role Status Dates Asa Alba NP-Craig Primary Care Provider Active Team Status: Inactive Member Role Status Dates Asa Alba NP-Craig Primary Care Provider Active Start: October 12, 2024 End: October 12, 2024 CORDELIA Gonzalez Attending Provider Active Start: October 12, 2024 End: October 12, 2024 CORDELIA Gonzalez Referring Provider Active Start: October 12, 2024 End: October 12, 2024 Team Status: Inactive Member Role Status Dates Asa Alba NP-Craig Primary Care Provider Active Start: October 18, 2024 End: October 18, 2024 CORDELIA Paul Referring Provider Active Start: October 18, 2024 End: October 18, 2024 CORDELIA Gonzalez Attending Provider Active Start: October 18, 2024 End: October 18, 2024 Team Status: Inactive Member Role Status Dates Asa Alba NP-C Primary Care Provider Active Start: December 21, 2024 End: December 21, 2024 CORDELIA Paul Referring Provider Active Start: December 21, 2024 End: December 21, 2024 Dr. Ronald Mcfarlane MD Attending Provider Active Start: December 21, 2024 End: December 21, 2024 Team Status: Inactive Member Role Status Dates Asa Alba NP-C Primary Care Provider Active Start: December 27, 2024 End: December 27, 2024 CORDELIA Paul Referring Provider Active Start: December 27, 2024 End: December 27, 2024 CORDELIA Bingham NP Attending Provider Active Start: December 27, 2024 End: December 27, 2024 Team Status: Inactive Member Role Status Dates CORDELIA Paul Primary Care Provider Active Start: December 27, 2024 End: December 27, 2024 CORDELIA Bingham NP Attending Provider Active Start: December 27, 2024 End: December 27, 2024 CORDELIA Bingham NP Referring Provider Active Start: December 27, 2024 End: December 27, 2024 INFORMATION SOURCE (unrecogn ized section and content) DATE CREATED AUTHOR 08/26/2022 [facility] DATE CREATED AUTHOR AUTHOR'S ORGANIZ ATION 01/02/2023 [facility] DATE CREATED AUTHOR AUTHOR'S ORGANIZ ATION 12/29/2024 [facility] FOR RECORDS PERTAINING TO PATIENTS WHO ARE OR HAVE BEEN ENROLLED IN A CHEMICAL DEPENDENCY/SUBSTANCEABUSE PROGRAM, SOME INFORMATION MAY BE OMITTED. This clinical summary was aggregated from multiple sources. Caution should be exercised in using it in the provision of clinical care. This summary normalizes information from multiple sources, and as a consequence, information in this document may materially change the coding, format and clinical context of patient data. In addition, data may be omitted in some cases. CLINICAL DECISIONS SHOULD BE BASED ON THE PRIMARY CLINICAL RECORDS. [facility] [employer] provides no warranty or guarantee of the accuracy or completeness of information in this document.
[2025-01-06 08:14] LABS: Cholesterol 201 mg/dL (<=200); High Density Lipoprotein 71 mg/dL; Low Density Lipoprotein Calc. 111 mg/dL; Triglycerides 91 mg/dL; Very Low Density Lipoprotein 18 mg/dL (5-40); cholesterol:hdl ratio screen 2.82
== END | disposition home or self-care (01) ==
LOC: LAB 07:05
PROVIDERS: PCP Nurse Practitioner Family; Referring Provider Internal Medicine Cardiovascular Disease; Visit Provider Internal Medicine Cardiovascular Disease
DX: E78.5 Hyperlipidemia, unspecified (principal)
CPT/HCPCS: 36415; 80061

== ENCOUNTER → 2025-03-09 | Outpatient (CLI) | payer OTHER, SELFPAY ==
[2024-04-13 15:45] VITALS: BMI 29.1
[2025-03-09 13:25] LABS: FOLATES,SERUM (FOLIC ACID) 9.39 ng/mL (4.60-34.80)
[2025-03-09 13:51] LABS: Ferritin 154 ng/mL (22-378); Iron 102 ug/dL (50-170); Iron Binding Capacity,Total 303 ug/dL (250-450); Iron Binding Capacity,Unsat 201 ug/dL (228-428); Vitamin B12 325 pg/mL (180-914); Vitamin D,25 Hydroxy 51.9 ng/mL (30-100)
== END | disposition home or self-care (01) ==
LOC: LAB 11:02
PROVIDERS: PCP Nurse Practitioner Family; Referring Provider Nurse Practitioner Family; Visit Provider Nurse Practitioner Family
DX: Z00.00 Encounter for general adult medical examination without abnormal findings (principal)
CPT/HCPCS: 36415; 82306; 82607; 82728; 82746; 83540; 83550

== ENCOUNTER → 2025-03-15 | Outpatient (CLI) | payer OTHER, SELFPAY ==
[2024-04-13 15:45] VITALS: BMI 29.1
--- NOTE | 2025-03-15 15:05 | BD_ITS ---
PROCEDURE: DEXA BONE DENSITY STUDY 03/15/2025 REASON FOR EXAM: F, age 64 y/o . Postmenopausal. TECHNIQUE: DEXA BONE DENSITY STUDY COMPARISON: March 04, 2023. FINDINGS: BMD and T-SCORES Lumbar spine: 0.828 g/cm2, T-score -2.0 Levels: L1 through L4 Change from prior: Loss of 5.8%. Left femoral neck: 0.668 g/cm2, T-score -1.6 Femoral neck comparison data not recommended for monitoring change. Left total hip: 0.819 g/cm2, T-score -1.0 Change from prior: Improvement of 0.9%. Right femoral neck: 0.654 g/cm2, T-score -1.8 Femoral neck comparison data not recommended for monitoring change. Right total hip: 0.785 g/cm2, T-score -1.3 Change from prior: Loss of 0.5%. The World Health Organization has defined the following categories based on bone density: Normal bone density: T-score equal to or greater than -1.0 Osteopenia: T-score between -1.0 and -2.5 Osteoporosis: T-score equal to or less than -2.5 FRAX (or Comparable) Fracture Risk Assessment: 10 Year Probability of Fracture: Major Osteoporotic Fracture: 17% Hip Fracture: 1% (Note: FRAX is not to be reported in setting of normal range bone density, osteoporosis on DEXA, known history of osteoporosis, prior osteoporotic hip or vertebral fracture, or for any patient undergoing pharmacological treatment for bone loss.) The National Osteoporosis Foundation (NOF) recommends pharmacological treatment for patients with a FRAX 10-year risk of 3% or higher for a hip fracture, or 20% or higher for a major osteoporotic fracture, to prevent osteoporosis and reduce fracture risk. The patient does meet the pharmacological treatment recommendations for prevention of osteoporosis. BD/Dexa Bone Density Study IMPRESSION: OSTEOPENIA. Recommend follow-up as clinically warranted. Reading Location: [id number]
--- NOTE | 2025-03-15 15:05 | BI_ITS ---
EXAM: SCRN MAMM (CAD)W/STEPHANI BILAT DATE: 03/15/2025 CLINICAL HISTORY: F, Age 64 y/o , BREAST CANCER SCREENING No family history. TECHNIQUE: SCRN MAMM (CAD)W/STEPHANI BILAT COMPARISON: Prior exam(s) dated March 05, 2023.. FINDINGS: TISSUE DENSITY: The breasts are almost entirely fatty. Bilateral Breast Mammographic Findings: No significant masses, calcifications or other abnormalities are identified. Stable small bilateral benign-appearing axillary lymph nodes. No suspicious masses, areas of developing architectural distortion, or suspicious calcifications. There has been no significant interval change. BI/SCRN MAMM (CAD)W/STEPHANI BILAT IMPRESSION: Stable bilateral screening mammogram. OVERALL FINAL ASSESSMENT BI-RADS 2: BENIGN RECOMMENDATION: Routine annual follow-up in 1 Year A letter with findings and recommendations will be mailed to the patient. Reading Location: [id number]
== END | disposition home or self-care (01) ==
LOC: OPBD 15:04
PROVIDERS: PCP Nurse Practitioner Family; Referring Provider Nurse Practitioner Family; Visit Provider Nurse Practitioner Family
DX: Z12.31 Encounter for screening mammogram for malignant neoplasm of breast (principal); Z78.0 Asymptomatic menopausal state
CPT/HCPCS: 77063; 77067; 77080

== ENCOUNTER → 2025-04-06 | Outpatient (CLI) | payer OTHER, SELFPAY ==
[2024-04-13 15:45] VITALS: BMI 29.1
--- NOTE | 2025-04-06 14:13 | US_ITS ---
PROCEDURE: PELVIC W/ TRANSVAGINAL REASON FOR EXAM: FIBROID TECHNIQUE: Procedure Code: [id number] Modality: US Procedure: PELVIC W/ TRANSVAGINAL COMPARISON: Prior study dated October 12, 2024. FINDINGS: Measurements: Uterus: 10.2 cm x 6.8 cm x 7 cm with a volume of 292.4 mL Endometrial Thickness: The endometrium was not visualized. Right Ovary: Not visualized. Left Ovary: Not visualized TRANSABDOMINAL: Uterus: Enlarged fibroid uterus. There is a 7.3 cm 6.4 cm 6.4 cm fundal fibroid. Endometrium: Poorly visualized. Right ovary: Not visualized. Left ovary: Not visualized. Other: No large pelvic mass identified. Transvaginal sonography was performed to better visualize the endometrium. TRANSVAGINAL: Uterus: Enlarged fibroid uterus. 7.3 cm 6.4 cm 6.4 cm fundal fibroid. Endometrium: Poorly visualized due to the large fibroid. Right ovary: Not visualized. Left ovary: Not visualized. Other adnexal findings: None. Cul-de-sac: No free intraperitoneal fluid identified. Tenderness: No tenderness US/Pelvic w/ Transvaginal IMPRESSION: Enlarged fibroid uterus. The ovaries were not visualized. Reading Location: [place] [id number]
== END | disposition home or self-care (01) ==
LOC: OPUS 14:11
PROVIDERS: PCP Nurse Practitioner Family; Referring Provider Nurse Practitioner Women's Health; Visit Provider Nurse Practitioner Women's Health
DX: N95.0 Postmenopausal bleeding (principal); D25.9 Leiomyoma of uterus, unspecified
CPT/HCPCS: 76830; 76856